=== PATIENT | female | born 1945 | race Caucasian/White ===

== ENCOUNTER 2016-10-10 11:39 | Inpatient (IN) | payer OTHER ==
[~2016-10-10] VITALS: Ht 154.9 cm; Wt 100.9 kg
[~2016-10-10 11:39] MED LIST: ADVIN25050 INH; ALBINS/ INH; ALBUAER2 INH; ALPPOPSD OPB; ASCO10003 PO; CHOL100027 PO; CLOP1TAB15 PO; CRG25 PO; DILT120C68 PO; FRS/40 PO; INSUINJ4 SC; IPRA1AER2 INH; LNX125 PO; LPT/40 PO; MECL1TAB42 PO; XRL15 PO
[2016-10-10] MEDS ORDERED: VNTHFA/IN INH (12:20)
[2016-10-10] MEDS ORDERED: OXGN (12:20)
[2016-10-10] MEDS ORDERED: CEFU1TAB35 PO (12:20)
[2016-10-10] MEDS ORDERED: DILT180C PO (12:20)
[2016-10-10] MEDS ORDERED: ADVIN50/60 INH (12:20)
[2016-10-10] MEDS ORDERED: RIVA1.5T PO (12:20)
[2016-10-10] MEDS ORDERED: LSN5 PO (12:20)
[2016-10-10] MEDS ORDERED: INSDGIPEN SC (12:20)
--- NOTE | 2016-10-10 12:48 | EMERGENCY ROOM VISIT NOTE ---
History Report prepared by Martha: Maurice Galvez Under the Supervision of: Dr. Heike Harrington D.O. First contact with patient: 12:24 Chief Complaint: SHORTNESS OF BREATH Stated Complaint: SHORTNESS OF BREATH History of Present Illness The patient is a 70 year old female with a history of COPD, CHF, atrial fibrillation, and diabetes who presents to the Emergency Room via EMS with complaints of worsening shortness of breath over the past few months. The patient has a BV ICD pacer. The patient says that she has been out of her medications for months and has not been taking a calcium channel shayne, beta- shayne, and Xarelto. She states that she felt good before stopping the medications. Per the nursing report, the patient has still been taking her insulin and nebulizers, and wears a CPAP at night. She received a Duoneb by EMS. The patient adds that she has been having a productive cough, but denies any pain. She saw her primary care physician earlier today for a check-up, and told the doctor that she ran out of the medications. The doctor sent the patient here for evaluation and to check for the possibility of blood clots in the patient's lungs. The patient says she has no history of blood clots. She denies any recent chest pain, abdominal pain, vomiting, diarrhea, or leg swelling. The patient says she has been feeling better with the oxygen she is wearing in the room. She has never smoked. Source of History: patient Onset: Past few months Position: other (global - shortness of breath) Modifying Factors (Relieving): oxygen Associated Symptoms: + cough, No chest pain, No vomiting, No abdominal pain , No diarrhea Note: Associated symptoms: Denies leg swelling. Review of Systems See HPI for pertinent positives & negatives. A total of 10 systems reviewed and were otherwise negative. 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 (16) Shortness of breath Family History Cancer Diabetes mellitus Hypertension Social History Smoking Status: Never Smoker Alcohol Use: none Drug Use: none Marital Status: Occupation Status: disabled Current/Historical Medications Scheduled Ascorbic Acid (Vitamin C), 1,000 MG PO QAM Atorvastatin (Lipitor), 40 MG PO QAM Carvedilol (Carvedilol), 25 MG PO BID Cefuroxime Axetil (Cefuroxime Axetil), 500 MG PO Q12 Cholecalciferol (Vitamin D 1000 Unit), 1,000 INTER.UNIT PO QAM Diltiazem Hcl Coated Beads (Diltiazem Hcl Er), 180 MG PO DAILY Fluticasone Prop/Salmeterol (Advair Diskus 500/50 60 Dose), 1 PUFF INH BID Furosemide (Lasix), 40 MG PO QAM Insulin Glargine (Lantus Solostar), 10 UNITS SC HS Ipratropium-Albuterol (Combivent Respimat), 2 PUFF INH QID Lisinopril (Lisinopril), 5 MG PO DAILY Oxygen (Oxygen), 1.5 LITER NA PRN Rivaroxaban (Xarelto), 15 MG PO DAILY Scheduled PRN Albuterol Hfa (Ventolin Hfa), 2 PUFFS INH Q4H PRN for SOB/Wheezing Albuterol Sulf (Proventil 0.083% 2.5MG/3ML), 1 VIAL INH Q4 PRN for SOB/Wheezing Meclizine Hcl (Meclizine Hcl), 12.5-25 MG PO Q4 PRN for Dizziness or Vertigo Allergies Coded Allergies: Aspirin (Verified Allergy, Intermediate, HIVES, 11/28/15) Iodinated Contrast Media (Verified Allergy, Intermediate, HIVES - MRI DYE , 11/28/15) Levofloxacin (Verified Allergy, Intermediate, HIVES, VEIN IRRITATION W/IV LEVAQUIN, 11/28/15) Erythromycin (Verified Allergy, Unknown, UNKNOWN, 11/28/15) Physical Exam Vital Signs Date Time Temp Pulse Resp B/P (MAP) Pulse Ox O2 Delivery O2 Flow Rate FiO2 10/10/16 16:53 89 16 117/83 98 Nasal Cannula 2.0 10/10/16 16:21 90 10/10/16 15:23 83 16 97/74 99 Nasal Cannula 2.0 10/10/16 15:05 101 22 102/75 98 Nasal Cannula 2.0 10/10/16 14:16 93 22 122/80 100 Nasal Cannula 2.0 10/10/16 13:08 104 22 125/92 97 Nasal Cannula 2.0 10/10/16 12:19 103 10/10/16 11:47 36.8 117 22 105/81 93 Room Air 10/10/16 11:47 93 Room Air 10/10/16 11:47 93 Room Air Physical Exam GENERAL: alert, well appearing, well nourished, no distress, non-toxic EYE EXAM: normal conjunctiva, PERRL and EOM's grossly intact OROPHARYNX: no exudate, no erythema, lips, buccal mucosa, and tongue normal and mucous membranes are dry NECK: supple, no nuchal rigidity, no adenopathy, non-tender LUNGS: Diminished breath sounds, no wheezes, rhonchi, or rales. HEART: no murmurs, S1 normal and S2 normal. Pacemaker left anterior chest wall, paced on telemetry. ABDOMEN: abdomen soft, non-tender, normo-active bowel sounds, no masses, no rebound or guarding. BACK: Back is symmetrical on inspection and there is no deformity, no midline tenderness, no CVA tenderness. SKIN: no rashes and no bruising UPPER EXTREMITIES: upper extremities are grossly normal. LOWER EXTREMITIES: No pitting edema. NEURO EXAM: Normal sensorium, cranial nerves II-XII grossly intact, normal speech, no gross weakness of arms, no gross weakness of legs. No drift. Finger to nose intact. Gross sensation intact. Medical Decision & Procedures ER Provider Diagnostic Interpretation: X-ray results have been interpreted by the radiologist and reviewed by me. CHEST ONE VIEW PORTABLE CLINICAL HISTORY: sob COMPARISON STUDY: January 05, 2016 FINDINGS: The heart is enlarged. There is a left subclavian implantable defibrillator present. There is no failure. There is no focal pulmonary consolidation. There are no pleural effusions. There is stable prominence of the right pulmonary artery.[ There is no failure. IMPRESSION: No active disease in the chest. Electronically signed by: Jass Shaw M.D. 10/10/2016 1:16 PM Dictated Date/Time: 10/10/2016 1:15 PM Laboratory Results Test 10/10/16 11:35 10/10/16 11:55 10/10/16 12:53 Prothrombin Time 11.5 SECONDS (9.0-12.0) Prothromb Time International Ratio 1.1 (0.9-1.1) D-Dimer 1860 ug/L FEU (0-500) Magnesium Level 2.2 mg/dl (1.8-2.4) Total Bilirubin 0.9 mg/dl (0.2-1) Aspartate Amino Transf (AST/SGOT) 21 U/L (15-37) Alanine Aminotransferase (ALT/SGPT) 26 U/L (12-78) Alkaline Phosphatase 106 U/L (45-117) Total Protein 7.0 gm/dl (6.4-8.2) Albumin 4.0 gm/dl (3.4-5.0) Globulin 3.0 gm/dl (2.5-4.0) Albumin/Globulin Ratio 1.3 (0.9-2) Thyroid Stimulating Hormone (TSH) 2.590 uIu/ml (0.300-4.500) Pro-B-Type Natriuretic Peptide 5310 pg/ml (0-900) Urine Color YELLOW Urine Appearance CLEAR (CLEAR) Urine pH 6.0 (4.5-7.5) Urine Specific [place] 1.020 (1.000-1.030) Urine Protein 2+ (NEG) Urine Glucose (UA) NEG (NEG) Urine Ketones NEG (NEG) Urine Occult Blood TRACE (NEG) Urine Nitrite NEG (NEG) Urine Bilirubin NEG (NEG) Urine Urobilinogen NEG (NEG) Urine Leukocyte Esterase SMALL (NEG) Urine WBC (Auto) 10-30 /hpf (0-5) Urine RBC (Auto) 0-4 /hpf (0-4) Urine Hyaline Casts (Auto) 5-10 /lpf (0-5) Urine Epithelial Cells (Auto) >30 /lpf (0-5) Urine Bacteria (Auto) 1+ (NEG) Urine Renal Epithelial Cells /lpf (0-5) Laboratory results per my review. Medications Administered Medications (Trade) Dose Ordered Sig/Ion Route Start Time Stop Time Status Last Admin Dose Admin Heparin Sodium (Porcine) (Heparin Sq 5000 Unit/0.5ml) 5,000 unit STK-MED ONCE .ROUTE 10/10/16 15:00 10/10/16 15:01 DC 10/10/16 15:17 5,000 UNIT Heparin Sodium/ Dextrose (Heparin 25,000 Unit/500ml D5W) 25,000 unit STK-MED ONCE .ROUTE 10/10/16 15:00 10/10/16 15:01 DC 10/10/16 15:18 25,000 UNIT Ceftriaxone Sodium (Rocephin Inj) 1 gm NOW STAT IV 10/10/16 15:54 10/10/16 15:55 DC 10/10/16 16:52 1 GM ECG Indication: SOB/dyspnea Rate (beats per minute): 113 Rhythm: other (AV paced) Findings: no acute ischemic change, other (Normal axis, prolonged QRS and QTC consistent with pacing) ED Course 1239: The patient was evaluated in room C10. A complete history and physical exam was performed. 1422: Ordered Heparin Sodium/Dextrose 1 ea N/A. 1554: Ordered Rocephin Inj 1 gm IV. 1620: Upon reevaluation, the patient is resting comfortably. I discussed the findings and the treatment plan with the patient. She expresses agreement and understanding. She will be evaluated for further management. 1622: I discussed the patient with Dr. Aron Arguelles [facility] [place] - he will evaluate the patient for further treatment. Medical Decision Prior records/ancillary studies reviewed. Triage Nursing notes reviewed. Differential diagnosis: Etiologies such as infections, reactive airway disease, pneumonia, pneumothorax , COPD, CHF, cardiac ischemia, pulmonary embolism, musculoskeletal, gastrointestinal, as well as others were entertained. Medication Reconciliation: I attest that I have personally reviewed the patient' s current medication list. Blood pressure screening: Patient was found to have normal blood pressure on screening and does not require follow-up. Patient well-appearing here despite complaints. Patient felt symptomatically improved with oxygen by nasal cannula which she does not currently wear at home. Patient has been out of her medications recently for unclear reasons, including her blood thinner. For this regions she was sent to the emergency room for additional evaluation of a possible PE by her family doctor. Patient' s troponin found to be elevated also despite no complaints of chest pain and no acute EKG findings. Given consideration for PE, patient started on heparin after troponin found to be elevated. It is possible troponin elevated due to chronic kidney disease. Patient's vital signs stable and I have a much lower suspicion for a massive or submassive PE despite the elevated troponin. Patient with a history of chronic kidney disease and creatinine today close to previously recorded levels. Patient with possible early UTI and covered with IV Rocephin. Patient remained stable throughout and was awaiting VQ scan which could not be scheduled until much later in the day. Given dysrhythmia, elevated troponin, and need to be restarted on usual medications, patient admitted. At time of admission hospitalist was aware that VQ scan was still pending the patient had already been started on heparin given risks and known chronic any disease. Doubt bacteremia/sepsis, patient's blood pressure normal here, doubt hypertensive emergency, doubt AAA, dissection, tamponade, effusion. Consults Time Called: 1620 Consulting Physician: Dr. Aron BYRNE hospitalist Returned Call: 1622 I discussed the patient with Dr. Aron BYRNE hospitalist - he will evaluate the patient for further treatment. Impression Primary Impression: Dyspnea Additional Impressions: Elevated troponin Chronic kidney disease Medical non-compliance Critical Care I have personally spent greater than 35 minutes of critical care time in the direct management of this patient. This includes bedside care, interpretation of diagnostic studies, and testing, discussion with consultants, patient, and family members, and other required patient management activities. This 35 minutes is in excess of all separately billable procedures. Involved system: pulmonary, cardiovascular Scribe Attestation The scribe's documentation has been prepared under my direction and personally reviewed by me in its entirety. I confirm that the note above accurately reflects all work, treatment, procedures, and medical decision making performed by me. Departure Information Dispostion Being Evaluated By Hospitalist Referrals João Stephenson M.D. (PCP) Patient Instructions My [facility] Problem Qualifiers Primary Impression: Dyspnea Dyspnea type: shortness of breath Qualified Codes: R06.02 - Shortness of breath Additional Impressions: Chronic kidney disease Chronic kidney disease stage: unspecified stage Qualified Codes: N18.9 - Chronic kidney disease, unspecified
[2016-10-10 12:57] LABS: BASO % 0.2 %; BASO ABS # 0.02 K/uL (0-0.2); COMPLETE YES; EOS % 1.6 %; HEMATOCRIT 45.8 % (37-47); IG% 0.2 %; LYMPH % 20.9 %; LYMPH ABS # 2.53 K/uL (1.2-3.4); MEAN CELL VOLUME 88.1 fL (80-100); MEAN PLATELET VOLUME 10.2 fL (7.4-10.4); MONO % 6.4 %; NEUT % 70.7 %; PLATELET COUNT 191 K/uL (130-400); WHITE BLOOD COUNT 12.13 K/uL (4.8-10.8)
[2016-10-10 13:09] LABS: BUN/CREATININE RATIO 15.7 (10-20); CREATININE 2.1 mg/dl (0.60-1.20); MAGNESIUM 2.2 mg/dl (1.8-2.4); POTASSIUM 4.8 mmol/L (3.5-5.1)
[2016-10-10 13:10] LABS: URINE APPEARANCE CLEAR (CLEAR); URINE BILIRUBIN NEG (NEG); URINE COLOR YELLOW; URINE EPITHELIAL CELL AUTO >30 /lpf (0-5); URINE NITRITE NEG (NEG); UROBILINOGEN NEG (NEG); ZZUR CULT IF INDIC CLEAN CATCH YES
[2016-10-10 13:11] LABS: INR 1.1 (0.9-1.1); PROTHROMBIN TIME (PATIENT) 11.5 SECONDS (9.0-12.0)
[2016-10-10 13:12] LABS: CALCIUM 9.2 mg/dl (8.5-10.1)
[2016-10-10 13:13] LABS: MANUAL MICROSCOPIC REQUIRED? NO; REVIEW REQ? YES
--- NOTE | 2016-10-10 13:17 | DIAGNOSTIC IMAGING REPORT ---
CHEST ONE VIEW PORTABLE CLINICAL HISTORY: sob COMPARISON STUDY: January 05, 2016 FINDINGS: The heart is enlarged. There is a left subclavian implantable defibrillator present. There is no failure. There is no focal pulmonary consolidation. There are no pleural effusions. There is stable prominence of the right pulmonary artery.[ There is no failure. IMPRESSION: No active disease in the chest. Electronically signed by: Jass Shaw M.D. 10/10/2016 1:16 PM Dictated Date/Time: 10/10/2016 1:15 PM
[2016-10-10 13:29] LABS: ALB/GLOB RATIO 1.3 (0.9-2); THYROID STIMULATING HORMONE 2.59 uIu/ml (0.300-4.500)
[2016-10-10] MEDS ORDERED: HEPARIN 25000 UNIT/500 ML D5W ONE (15:00)
[2016-10-10] MEDS ORDERED: HEPARIN SOD 5000 UNIT/0.5 ML CARP ONE (15:00)
[2016-10-10] MEDS ORDERED: CEFTRIAXONE SOD INJ 1 GM ADDVIAL IV STA (15:54)
--- NOTE | 2016-10-10 17:14 | History and Physical ---
History & Physical Date & Time of Service: Oct 10, 2016 at 16:57 Chief Complaint: Shortness Of Breath Primary Care Physician: João Stephenson M.D. History of Present Illness Source: patient Pt is a 70 yo female with a history of COPD, CHF, CABG, CM, atrial fibrillation , AVR, IDDM who presents to the ER with worsening shortness of breath at rest. Pt reports she has been without her meds since may. She states "my doctor just stopped giving me medications." Pt also reports noncompliance with her CPAP, stating she only uses it 2-3x a week. Per nursing, she has been using her lantus and nebulizers only. Pt was sent here by PCP for evaluation for PE due to worsening sob and being off her xarelto for so long. Currently she denies any fevers, chills, N/V/D, abd pain or chest pain. Reports shortness of breath has slightly improved. 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 Status: Chronic (11) Repair of aortic valve with tissue graft Status: Chronic Family History Cancer Diabetes mellitus Hypertension Social History Smoking Status: Never Smoker Drug Use: none Marital Status: Housing status: lives with family Occupational Status: disabled Immunizations History of Influenza Vaccine: Yes Influenza Vaccine Date: Dec 19, 2011 History of Tetanus Vaccine?: Unknown Tetanus Immunization Date: Jul 15, 2000 History of Pneumococcal: Yes Pneumococcal Date: Jul 15, 2006 History of Hepatitis B Vaccine: No Multi-Drug Resistant Organisms History of MDRO: No Allergies Coded Allergies: Aspirin (Verified Allergy, Intermediate, HIVES, 11/28/15) Diltiazem (Unverified Allergy, Intermediate, rash/hives, 01/05/16) Received immediately aftyer small amount was given as IV push. Iodinated Contrast Media (Verified Allergy, Intermediate, HIVES - MRI DYE , 11/28/15) Levofloxacin (Verified Allergy, Intermediate, HIVES, VEIN IRRITATION W/IV LEVAQUIN, 11/28/15) Erythromycin (Verified Allergy, Unknown, UNKNOWN, 11/28/15) Home Medications Scheduled Ascorbic Acid (Vitamin C), 1,000 MG PO QAM Atorvastatin (Lipitor), 40 MG PO QAM Carvedilol (Carvedilol), 25 MG PO BID Cefuroxime Axetil (Cefuroxime Axetil), 500 MG PO Q12 Cholecalciferol (Vitamin D 1000 Unit), 1,000 INTER.UNIT PO QAM Diltiazem Hcl Coated Beads (Diltiazem Hcl Er), 180 MG PO DAILY Fluticasone Prop/Salmeterol (Advair Diskus 500/50 60 Dose), 1 PUFF INH BID Furosemide (Lasix), 40 MG PO QAM Insulin Glargine (Lantus Solostar), 10 UNITS SC HS Ipratropium-Albuterol (Combivent Respimat), 2 PUFF INH QID Lisinopril (Lisinopril), 5 MG PO DAILY Oxygen (Oxygen), 1.5 LITER NA PRN Rivaroxaban (Xarelto), 15 MG PO DAILY Scheduled PRN Albuterol Hfa (Ventolin Hfa), 2 PUFFS INH Q4H PRN for SOB/Wheezing Albuterol Sulf (Proventil 0.083% 2.5MG/3ML), 1 VIAL INH Q4 PRN for SOB/Wheezing Meclizine Hcl (Meclizine Hcl), 12.5-25 MG PO Q4 PRN for Dizziness or Vertigo Review of Systems Constitutional: No fever, No chills, No sweats, No weight loss, No weakness ENT: No hearing loss, No unusual epistaxis, No nasal symptoms, No sore throat, No tinnitus Respiratory: + cough, + shortness of breath, + dyspnea at rest, No sputum, No wheezing, No dyspnea on exertion Cardiovascular: No chest pain, No orthopnea, No PND, No edema Abdomen: No pain, No nausea, No vomiting, No diarrhea Musculoskeletal: No joint pain, No muscle pain, No swelling, No calf pain Genitourinary - Female: No dysuria, No urinary frequency, No urinary urgency, No urinary incontinence Neurologic: No memory loss, No paralysis, No weakness, No numbness/tingling Psychiatric: No depression symptoms, No anhedonism, No anxiety, No insomnia Integumentary: No rash, No itch Physical Exam Vital Signs Date Time Temp Pulse Resp B/P (MAP) Pulse Ox O2 Delivery O2 Flow Rate FiO2 10/10/16 16:53 89 16 117/83 98 Nasal Cannula 2.0 10/10/16 16:21 90 10/10/16 15:23 83 16 97/74 99 Nasal Cannula 2.0 10/10/16 15:05 101 22 102/75 98 Nasal Cannula 2.0 10/10/16 14:16 93 22 122/80 100 Nasal Cannula 2.0 10/10/16 13:08 104 22 125/92 97 Nasal Cannula 2.0 10/10/16 12:19 103 10/10/16 11:47 36.8 117 22 105/81 93 Room Air 10/10/16 11:47 93 Room Air 10/10/16 11:47 93 Room Air General Appearance: WD/WN, no apparent distress, + obese Eyes: normal inspection, PERRL, EOMI, sclerae normal ENT: normal ENT inspection, hearing grossly normal, TMs normal, pharynx normal Neck: supple, no adenopathy, thyroid normal, no JVD Respiratory/Chest: chest non-tender, no respiratory distress, no accessory muscle use, + decreased breath sounds Cardiovascular: regular rate, rhythm, no gallop, no JVD, no murmur Abdomen/GI: normal bowel sounds, non tender, soft, no organomegaly Extremities/Musculoskelatal: normal inspection, no calf tenderness, normal capillary refill, non-tender Neurologic/Psych: alert, normal mood/affect, normal reflexes, oriented x 3 Diagnostics Laboratory Results Results Past 24 Hours Test 10/10/16 11:35 10/10/16 12:53 Range/Units White Blood Count 12.13 4.8-10.8 K/uL Red Blood Count 5.20 4.2-5.4 M/uL Hemoglobin 15.1 12.0-16.0 g/dL Hematocrit 45.8 37-47 % Mean Corpuscular Volume 88.1 80-100 fL Mean Corpuscular Hemoglobin 29.0 25-34 pg Mean Corpuscular Hemoglobin Concent 33.0 32-36 g/dl Platelet Count 191 130-400 K/uL Mean Platelet Volume 10.2 7.4-10.4 fL Neutrophils (%) (Auto) 70.7 % Lymphocytes (%) (Auto) 20.9 % Monocytes (%) (Auto) 6.4 % Eosinophils (%) (Auto) 1.6 % Basophils (%) (Auto) 0.2 % Neutrophils # (Auto) 8.58 1.4-6.5 K/uL Lymphocytes # (Auto) 2.53 1.2-3.4 K/uL Monocytes # (Auto) 0.78 0.11-0.59 K/uL Eosinophils # (Auto) 0.20 0-0.5 K/uL Basophils # (Auto) 0.02 0-0.2 K/uL RDW Standard Deviation 47.6 36.4-46.3 fL RDW Coefficient of Variation 14.6 11.5-14.5 % Immature Granulocyte % (Auto) 0.2 % Immature Granulocyte # (Auto) 0.02 0.00-0.02 K/uL Prothrombin Time 11.5 9.0-12.0 SECONDS Prothromb Time International Ratio 1.1 0.9-1.1 Activated Partial Thromboplast Time 25.6 21.0-31.0 SECONDS Partial Thromboplastin Ratio 1.0 D-Dimer 1860 0-500 ug/L FEU Sodium Level 141 136-145 mmol/L Potassium Level 4.8 3.5-5.1 mmol/L Chloride Level 107 98-107 mmol/L Carbon Dioxide Level 25 21-32 mmol/L Anion Gap 9.0 3-11 mmol/L Blood Urea Nitrogen 33 7-18 mg/dl Creatinine 2.10 0.60-1.20 mg/dl Est Creatinine Clear Calc Drug Dose 26.3 ml/min Estimated GFR () 26.6 Estimated GFR (Non- 22.9 BUN/Creatinine Ratio 15.7 10-20 Random Glucose 154 70-99 mg/dl Calcium Level 9.2 8.5-10.1 mg/dl Magnesium Level 2.2 1.8-2.4 mg/dl Total Bilirubin 0.9 0.2-1 mg/dl Aspartate Amino Transf (AST/SGOT) 21 15-37 U/L Alanine Aminotransferase (ALT/SGPT) 26 12-78 U/L Alkaline Phosphatase 106 45-117 U/L Troponin I 0.069 0-0.045 ng/ml Total Protein 7.0 6.4-8.2 gm/dl Albumin 4.0 3.4-5.0 gm/dl Globulin 3.0 2.5-4.0 gm/dl Albumin/Globulin Ratio 1.3 0.9-2 Thyroid Stimulating Hormone (TSH) 2.590 0.300-4.500 uIu/ml Urine Color YELLOW Urine Appearance CLEAR CLEAR Urine pH 6.0 4.5-7.5 Urine Specific [place] 1.020 1.000-1.030 Urine Protein 2+ NEG Urine Glucose (UA) NEG NEG Urine Ketones NEG NEG Urine Occult Blood TRACE NEG Urine Nitrite NEG NEG Urine Bilirubin NEG NEG Urine Urobilinogen NEG NEG Urine Leukocyte Esterase SMALL NEG Urine WBC (Auto) 10-30 0-5 /hpf Urine RBC (Auto) 0-4 0-4 /hpf Urine Hyaline Casts (Auto) 5-10 0-5 /lpf Urine Epithelial Cells (Auto) >30 0-5 /lpf Urine Bacteria (Auto) 1+ NEG Urine Renal Epithelial Cells 0-5 /lpf Microbiology Results 10/10/16 Urine Culture, Received Pending Impression Assessment and Plan Pt is a 70 yo female with hx of IDDM, AVR, atrial fibrillation, COPD who presents with worsening shortness of breath at rest. Pt reports not having her meds for past 6 months. Shortness of breath, CXR determined no active disease, due to noncompliance with meds especially xarelto, will need VQ scan. Will utilize heparin drip at this time until results of VQ scan. Currently satting at baseline on home O2. Will utilize CPAP at night and O2 therapy during day If no PE, will need to restart on xarelto prior to DC home Leukocytosis - UA pos, await urine cx, no sx at this time IDDM - Will cont on lantus and ISS, obtain HgA1c Atrial fibrillation - paced rhythm on EKG, cont to trend trops, likely elev from demand ischemia Hx of CABG/nonischemic CM/bi ventricular AICD - stable, cont home meds COPD - Cont advair and xopenex and atrovent to due tachycardia DVT ppx with heparin drip Pt is FULL CODE
[2016-10-10] MEDS ORDERED: ALUMINUM/MAGNESIUM/SIMETH (MAALOX MAX) 30 ML UDC PO PRN (17:30)
[2016-10-10] MEDS ORDERED: OXYGEN SCH (17:30)
[2016-10-10] MEDS ORDERED: DEXTROSE 50% 50 ML SYR IV PRN (17:30)
[2016-10-10] MEDS ORDERED: GLUCOSE 10 TABS/TUBE PO PRN (17:30)
[2016-10-10] MEDS ORDERED: GLUCAGON FOR INJ 1 MG VIAL SQ PRN (17:30)
[2016-10-10] MEDS ORDERED: GLUCOSE 40% GEL 15 GM TUBE PO PRN (17:30)
[2016-10-10] MEDS ORDERED: ACETAMINOPHEN 325 MG TAB PO PRN (17:30)
[2016-10-10] MEDS ORDERED: ONDANSETRON INJ 2 MG/ML 2 ML VIAL IV PRN (17:30)
[2016-10-10 18:10] VITALS: BP 127/86; PULSE 94; TEMP 36.3; O2SAT 98; BMI 41.8
[2016-10-10] MEDS: HEPARIN 25,000 UNIT/500ML D5W 500 ML IV PRN (18:45)
--- NOTE | 2016-10-10 20:24 | DIAGNOSTIC IMAGING REPORT ---
NUCLEAR MEDICINE VENTILATION/PERFUSION SCAN HISTORY: Short of breath, elevated dimer TECHNIQUE: Immediately following the inhalation of 32.4 mCi of technetium 99 M DTPA and the intravenous injection of 6 mCi of technetium 99 M MAA, anterior, oblique, posterior, and lateral views of the chest were performed for the ventilation and perfusion scans. COMPARISON STUDY: Chest 10/10/2016. FINDINGS: No segmental or mismatched filling defects identified. Cardiac silhouette is enlarged. There is blunting the posterior costophrenic sulci. IMPRESSION: Above findings are consistent with a very low probability scan. Electronically signed by: Ajay Monroy M.D. 10/10/2016 8:23 PM Dictated Date/Time: 10/10/2016 8:21 PM
[2016-10-10 20:30] VITALS: BP 126/91; PULSE 85; TEMP 37; O2SAT 97
[2016-10-10] MEDS: LEVALBUTEROL 1.25MG/0.5ML NEB INH SCH (20:32)
[2016-10-10] MEDS: IPRATROPIUM BROMIDE NEB SOLN 0.02% 2.5 ML VIAL INH SCH (20:32)
[2016-10-10 20:33] VITALS: PULSE 95; O2SAT 97
[2016-10-10] MEDS: METHYLPREDNISOLONE IV 60 MG in SYRINGE 0 ML IV SCH (20:49)
[2016-10-10] MEDS: FLUTICASONE/SALMETEROL (ADVAIR) 500/50 INH 14 PUFF INH SCH (20:49)
[2016-10-10] MEDS: CARVEDILOL 25 MG TAB PO SCH (20:50)
[2016-10-10] MEDS: INSULIN ASPART 100 UNITS/ML 3 ML PEN SC SCH (20:53)
[2016-10-10] MEDS ORDERED: INSULIN GLARGINE SOLOSTAR 100 UNITS/ML 3 ML PEN SC SCH (21:00)
[2016-10-10] MEDS ORDERED: LEVALBUTEROL/IPRATROPIUM NEB INH SCH (21:00)
[2016-10-11] VITALS (14 sets, daily range): BP systolic 89–125; BP diastolic 57–84; PULSE 63–109; TEMP 36.4–36.7; O2SAT 92–96; Ht 154.9 cm; Wt 100.9 kg
[2016-10-11 00:23] LABS: PARTIAL THROMBOPLASTIN RATIO 4.6
[2016-10-11] MEDS: HEPARIN 25,000 UNIT/500ML D5W 500 ML IV PRN (01:45)
[2016-10-11] MEDS: IPRATROPIUM BROMIDE NEB SOLN 0.02% 2.5 ML VIAL INH SCH ×4 (01:59→19:13)
[2016-10-11] MEDS: LEVALBUTEROL 1.25MG/0.5ML NEB INH SCH ×4 (01:59→19:13)
[2016-10-11 07:05] LABS: HEMATOCRIT 44.8 % (37-47); MEAN CELL VOLUME 87.5 fL (80-100); MEAN CORPUSCULAR HEMOGLOBIN 28.9 pg (25-34); MEAN PLATELET VOLUME 10.1 fL (7.4-10.4); PLATELET COUNT 173 K/uL (130-400); RED BLOOD COUNT 5.12 M/uL (4.2-5.4); WHITE BLOOD COUNT 9.66 K/uL (4.8-10.8)
[2016-10-11 07:09] LABS: PARTIAL THROMBOPLASTIN RATIO 3.7
[2016-10-11 07:15] LABS: ESTIMATED AVERAGE GLUCOSE 177 mg/dl; HA1C FLAG Normal (Normal)
[2016-10-11] MEDS: METHYLPREDNISOLONE IV 60 MG in SYRINGE 0 ML IV SCH (07:27)
[2016-10-11] MEDS: CARVEDILOL 25 MG TAB PO SCH ×3 (07:28→20:07)
[2016-10-11 07:29] LABS: BUN/CREATININE RATIO 15.3 (10-20); CREATININE 2.5 mg/dl (0.60-1.20); POTASSIUM 4.7 mmol/L (3.5-5.1)
[2016-10-11] MEDS: LISINOPRIL 5 MG TAB PO SCH (07:29)
[2016-10-11] MEDS: CHOLECALCIFEROL 1000 INTER.UNIT TAB PO SCH (07:30)
[2016-10-11] MEDS: FUROSEMIDE 40 MG TAB PO SCH (07:30)
[2016-10-11] MEDS: ATORVASTATIN 40 MG TAB PO SCH (07:31)
[2016-10-11] MEDS: FLUTICASONE/SALMETEROL (ADVAIR) 500/50 INH 14 PUFF INH SCH ×2 (07:32→20:08)
[2016-10-11 07:34] LABS: BASO % 0.1 %; BASO ABS # 0.01 K/uL (0-0.2); COMPLETE YES; IG% 0.2 %; LYMPH % 11.2 %; LYMPH ABS # 1.08 K/uL (1.2-3.4); MONO % 0.7 %; NEUT % 87.8 %
[2016-10-11] MEDS: INSULIN ASPART 100 UNITS/ML 3 ML PEN SC SCH ×4 (07:39→20:59)
[2016-10-11] MEDS: DILTIAZEM HCL 180 MG CAPCR PO SCH (07:40)
--- NOTE | 2016-10-11 09:13 | Hospitalist Progress Note ---
Hospitalist Progress Note Date of Service Oct 11, 2016. (Kenna Dia ., PA-C) Subjective Pt evaluation today including: conversation w/ patient, physical exam, chart review, lab review, review of studies, review of inpatient medication list Voiding: no voiding problems, no incontinence Patient states she is feeling much improved since admission. Yesterday prior to arrival, patient states she was extremely SOB at rest and w/ exertion. Currently , SOB at rest has resolved; patient is able to speak full sentences w/out SOB and on home O2 requirement. Her SOB has been progressively worsening since May when she quit taking her medications. She has been noncompliant with her medications since May. She states she has called her PCP's office multiple times for prescription refills, but the office will not return her calls. She states she has been complaint with her COPD and DM medications. Per patient, sugars have been running around the 160s. Patient follows Dr. Pillai. She states her last follow-up with cardiology was in the Fall 2015. She was to have a 6 month follow-up, but has not followed-up. +chronic cough; no sputum production. Patient denies any fever, chills, sweats, lightheadedness, dizziness, vision changes, CP, palpitations, edema, wheezing, abdominal pain, nausea, vomiting, diarrhea, urinary symptoms, melena, numbness/ tingling, weakness, muscle/joint pain, anxiety/depression, active bleeding, or new skin discoloration/changes. (Kenna Dia ., PA-C) Medications Current Inpatient Medications Medications (Trade) Dose Ordered Sig/Ion Route Start Time Stop Time Status Last Admin Dose Admin Acetaminophen (Tylenol Tab) 650 mg Q4H PRN PO 10/10/16 17:30 11/09/16 17:29 10/11/16 06:48 650 MG Al Hydrox/Mg Hydrox/Simethicone (Maalox Max Susp) 15 ml Q4H PRN PO 10/10/16 17:30 11/09/16 17:29 Ondansetron HCl (Zofran Inj) 4 mg Q6H PRN IV 10/10/16 17:30 11/09/16 17:29 Atorvastatin Calcium (Lipitor Tab) 40 mg QAM PO 10/11/16 09:00 11/10/16 08:59 10/11/16 07:31 40 MG Carvedilol (Coreg Tab) 25 mg BID PO 10/10/16 21:00 11/09/16 20:59 10/10/16 20:50 25 MG Cholecalciferol (Vitamin D Tab) 1,000 inter.unit QAM PO 10/11/16 09:00 11/10/16 08:59 10/11/16 07:30 1,000 INTER.UNIT Diltiazem HCl (Cardizem Cd Cap) 180 mg DAILY PO 10/11/16 09:00 11/10/16 08:59 Salmeterol Xinafoate/ Fluticasone (Advair Diskus 500/50 Inh) 1 puff BID INH 10/10/16 21:00 11/09/16 20:59 10/11/16 07:32 1 PUFF Furosemide (Lasix Tab) 40 mg QAM PO 10/11/16 09:00 11/10/16 08:59 10/11/16 07:30 40 MG Insulin Glargine (Lantus Solostar Pen) 10 unit HS SC 10/10/16 21:00 11/09/16 20:59 10/10/16 20:51 10 UNIT Lisinopril (Zestril Tab) 5 mg DAILY PO 10/11/16 09:00 11/10/16 08:59 10/11/16 07:29 5 MG Non-Formulary Medication (Oxygen ) 1.5 liter PRN NA 10/10/16 17:30 11/09/16 17:29 Insulin Aspart (novoLOG ASPART) SLIDING SCALE If C... ACHS SC 10/10/16 21:00 11/09/16 20:59 10/11/16 07:39 9 UNITS Glucose (Glucose 40% Gel) 15-30 GRAMS 15 GRAMS... UD PRN PO 10/10/16 17:30 11/09/16 17:29 Glucose (Glucose Chew Tab) 4-8 Tablets 4 Tabl... UD PRN PO 10/10/16 17:30 11/09/16 17:29 Dextrose (Dextrose 50% 50ML Syringe) 25-50ML OF 50% DW IV FOR... UD PRN IV 10/10/16 17:30 11/09/16 17:29 Glucagon (Glucagon Inj) 1 mg UD PRN SQ 10/10/16 17:30 11/09/16 17:29 Ipratropium Verbena (Atrovent 0.02% 0.5MG/2.5ML Neb) 0.5 mg Q6R INH 10/10/16 21:00 11/09/16 20:59 10/11/16 07:05 0.5 MG Levalbuterol (Xopenex 1.25MG/ 0.5ML Neb) 1.25 mg Q6R INH 10/10/16 21:00 11/09/16 20:59 10/11/16 07:05 1.25 MG Methylprednisolone Sodium Succinate 60 mg/Syringe 0.96 ml @ 1.5 mls/min Q12@0800,2000 IV 10/10/16 20:00 11/09/16 19:59 10/11/16 07:27 1.5 MLS/MIN Heparin Sodium/ Dextrose 500 ml @ 21 mls/hr [id number] PRN IV 10/10/16 18:45 11/09/16 18:44 10/11/16 01:45 21 MLS/HR (Kenna Dia, PA-C) Objective Vital Signs Date Time Temp Pulse Resp B/P (MAP) Pulse Ox O2 Delivery O2 Flow Rate FiO2 10/11/16 08:04 Nasal Cannula 2.0 10/11/16 07:34 36.7 77 20 89/57 (68) 96 10/11/16 07:05 76 18 94 Nasal Cannula 2.0 10/11/16 04:29 36.4 78 18 103/70 (81) 93 Nasal Cannula 10/11/16 04:00 Nasal Cannula 2.0 10/11/16 01:59 109 18 95 Nasal Cannula 2.0 10/11/16 00:20 94 Nasal Cannula 2.0 10/11/16 00:00 36.4 99 18 123/84 (97) 94 Nasal Cannula 10/10/16 20:33 95 20 97 Nasal Cannula 2.0 10/10/16 20:30 97 Nasal Cannula 2.0 10/10/16 20:30 37.0 85 28 126/91 (103) 97 Nasal Cannula 2.0 10/10/16 18:10 36.3 94 22 127/86 98 Nasal Cannula 2.0 10/10/16 17:44 10/10/16 17:26 101 18 124/105 97 Nasal Cannula 2.0 10/10/16 16:53 89 16 117/83 98 Nasal Cannula 2.0 10/10/16 16:21 90 10/10/16 15:23 83 16 97/74 99 Nasal Cannula 2.0 10/10/16 15:05 101 22 102/75 98 Nasal Cannula 2.0 10/10/16 14:16 93 22 122/80 100 Nasal Cannula 2.0 10/10/16 13:08 104 22 125/92 97 Nasal Cannula 2.0 10/10/16 12:19 103 10/10/16 11:47 36.8 117 22 105/81 93 Room Air 10/10/16 11:47 93 Room Air 10/10/16 11:47 93 Room Air (Kenna Dia, PA-C) Physical Exam General Appearance: no apparent distress, + obese, + pertinent finding (2.0L O2 ; able to speak full sentences w/out SOB) Eyes: normal inspection, PERRL ENT: hearing grossly normal Neck: supple Respiratory/Chest: lungs clear, no respiratory distress, no accessory muscle use, + decreased breath sounds (throughout) Cardiovascular: regular rate, rhythm Abdomen: normal bowel sounds, non tender, soft Extremities: no pedal edema, no calf tenderness Neurologic/Psychiatric: alert, normal mood/affect, oriented x 3 Skin: normal color, warm/dry, no rash (Kenna Dia ., PA-C) Laboratory Results Last 24 Hours Test 10/10/16 11:35 10/10/16 11:55 10/10/16 12:53 10/10/16 18:09 White Blood Count 12.13 K/uL Red Blood Count 5.20 M/uL Hemoglobin 15.1 g/dL Hematocrit 45.8 % Mean Corpuscular Volume 88.1 fL Mean Corpuscular Hemoglobin 29.0 pg Mean Corpuscular Hemoglobin Concent 33.0 g/dl Platelet Count 191 K/uL Mean Platelet Volume 10.2 fL Neutrophils (%) (Auto) 70.7 % Lymphocytes (%) (Auto) 20.9 % Monocytes (%) (Auto) 6.4 % Eosinophils (%) (Auto) 1.6 % Basophils (%) (Auto) 0.2 % Neutrophils # (Auto) 8.58 K/uL Lymphocytes # (Auto) 2.53 K/uL Monocytes # (Auto) 0.78 K/uL Eosinophils # (Auto) 0.20 K/uL Basophils # (Auto) 0.02 K/uL RDW Standard Deviation 47.6 fL RDW Coefficient of Variation 14.6 % Immature Granulocyte % (Auto) 0.2 % Immature Granulocyte # (Auto) 0.02 K/uL Prothrombin Time 11.5 SECONDS Prothromb Time International Ratio 1.1 Activated Partial Thromboplast Time 25.6 SECONDS Partial Thromboplastin Ratio 1.0 D-Dimer 1860 ug/L FEU Sodium Level 141 mmol/L Potassium Level 4.8 mmol/L Chloride Level 107 mmol/L Carbon Dioxide Level 25 mmol/L Anion Gap 9.0 mmol/L Blood Urea Nitrogen 33 mg/dl Creatinine 2.10 mg/dl Est Creatinine Clear Calc Drug Dose 26.3 ml/min Estimated GFR () 26.6 Estimated GFR (Non- 22.9 BUN/Creatinine Ratio 15.7 Random Glucose 154 mg/dl Calcium Level 9.2 mg/dl Magnesium Level 2.2 mg/dl Total Bilirubin 0.9 mg/dl Aspartate Amino Transf (AST/SGOT) 21 U/L Alanine Aminotransferase (ALT/SGPT) 26 U/L Alkaline Phosphatase 106 U/L Troponin I 0.069 ng/ml Total Protein 7.0 gm/dl Albumin 4.0 gm/dl Globulin 3.0 gm/dl Albumin/Globulin Ratio 1.3 Thyroid Stimulating Hormone (TSH) 2.590 uIu/ml Pro-B-Type Natriuretic Peptide 5310 pg/ml Urine Color YELLOW Urine Appearance CLEAR Urine pH 6.0 Urine Specific [place] 1.020 Urine Protein 2+ Urine Glucose (UA) NEG Urine Ketones NEG Urine Occult Blood TRACE Urine Nitrite NEG Urine Bilirubin NEG Urine Urobilinogen NEG Urine Leukocyte Esterase SMALL Urine WBC (Auto) 10-30 /hpf Urine RBC (Auto) 0-4 /hpf Urine Hyaline Casts (Auto) 5-10 /lpf Urine Epithelial Cells (Auto) >30 /lpf Urine Bacteria (Auto) 1+ Urine Renal Epithelial Cells /lpf Bedside Glucose 111 mg/dl Test 10/10/16 20:44 10/10/16 23:36 10/11/16 06:30 Bedside Glucose 153 mg/dl Activated Partial Thromboplast Time 120.2 SECONDS 97.2 SECONDS Partial Thromboplastin Ratio 4.6 3.7 Troponin I 0.071 ng/ml 0.046 ng/ml White Blood Count 9.66 K/uL Red Blood Count 5.12 M/uL Hemoglobin 14.8 g/dL Hematocrit 44.8 % Mean Corpuscular Volume 87.5 fL Mean Corpuscular Hemoglobin 28.9 pg Mean Corpuscular Hemoglobin Concent 33.0 g/dl Platelet Count 173 K/uL Mean Platelet Volume 10.1 fL Neutrophils (%) (Auto) 87.8 % Lymphocytes (%) (Auto) 11.2 % Monocytes (%) (Auto) 0.7 % Eosinophils (%) (Auto) 0.0 % Basophils (%) (Auto) 0.1 % Neutrophils # (Auto) 8.48 K/uL Lymphocytes # (Auto) 1.08 K/uL Monocytes # (Auto) 0.07 K/uL Eosinophils # (Auto) 0.00 K/uL Basophils # (Auto) 0.01 K/uL RDW Standard Deviation 46.1 fL RDW Coefficient of Variation 14.3 % Immature Granulocyte % (Auto) 0.2 % Immature Granulocyte # (Auto) 0.02 K/uL Sodium Level 138 mmol/L Potassium Level 4.7 mmol/L Chloride Level 106 mmol/L Carbon Dioxide Level 21 mmol/L Anion Gap 11.0 mmol/L Blood Urea Nitrogen 38 mg/dl Creatinine 2.50 mg/dl Est Creatinine Clear Calc Drug Dose 22.1 ml/min Estimated GFR () 21.5 Estimated GFR (Non- 18.6 BUN/Creatinine Ratio 15.3 Random Glucose 280 mg/dl Estimated Average Glucose 177 mg/dl Hemoglobin A1c 7.8 % Calcium Level 9.0 mg/dl (Kenna Dia, PA-C) Assessment and Plan Patient is a 70 y/o female, with hx of IDDM, AVR, atrial fibrillation, COPD, who presents with worsening shortness of breath at rest. Pt reports not having her meds for past 6 months. SOB at rest & w/ exertion, ?secondary to PE vs COPD exacerbation vs CHF vs multifactorial due noncompliance of medications : - Admit to tele for cardiac monitoring - Trend cardiac enzymes- peak trop 0.071, likely secondary to demand ischemia - CXR- no acute processes - ECHO pending - IV Heparin drip pending VQ scan for possible PE due to noncompliance of Xarelto and h/o a.fib -- VQ scan- low probability of PE; d/c Heparin, resume Xarelto 15 mg daily - O2 protocol, wean as tolerated- wears 1.5-2L O2 supplement at home Leukocytosis- RESOLVED: - UA dirty, pending UCx; no s/s of UTI at this time, hold on antibiotics pending UCx T1DM w/ hyperglycemia: - Home regimen: Lantus 10 u HS -- Will increase to Lantus 10 u BID due to elevated hA1C and IV Steroid treatment- continue to titrate as needed - BSG ACHS w/ sliding insulin scale - hA1C= 7.8% Permanent a.fib- rate controlled/hx of CABG/nonischemic CM/bi-ventricular AICD- STABLE: - Continue Coreg 25 mg BID, Lisinopril 5 mg daily, Lasix 40 mg daily, Diltiazem 180 mg daily - Follows w/ Dr. Pillai- has not had f/u since Fall 2015 and missed scheduled 6 month f/u COPD w/ ?mild exacerbation: - Continue Advair, Xopenex, and Atrovent - IV SoluMedrol 60 mg BID--> decreased to daily and continue to wean CKD stage IV- baseline Cr. ~2.0-2.4- STABLE: Follow PRP Dyslipidemia: Lipitor 40 mg daily DIAMOND: - CPAP; patient is noncompliant- states she does not use it regularly and was suppose to have her machine checked months ago, but the home services never came GI Prophylaxis: Maalox PRN, IV Zofran PRN DVT Prophylaxis: Xarelto Code Status: LEVEL I, FULL Dispo: - Patient lives w/ grandson and family- ambulates w/ walker- recent decrease in activity due to SOB; pending PT/OT evaluations - Poor outpatient f/u's- will need f/u with PCP (prefers Aimee) and cardiology prior to discharge; will need CPAP check- social problems specialist consulted (Kenna Dia, PABlaneC) i personally examined pt and verified all briscoe points w Jordin Dia PAC feeling better now vitals noted nad breathing unlabored no cyanosis no accessory muscles chronic systolic chf - unclear exactly as to how she ran out of meds/refills/ lost to follow up. much of the situation has me harbor concern on her having an occult lack of ability for follow through in some respect. appears basically to be at/around what seems to be baseline - now back on meds and feeling better. observe through tomorrow if ongoing stability then home. to ensure not "slipping through the cracks" again - home nursing, close f/u to be scheduled. (Alfonzo Webber D.O.)
[2016-10-11] MEDS ORDERED: PERFLUTREN LIPID MICROSPHERE (DEFINITY) IV ONE (09:47)
[2016-10-11] MEDS: RIVAROXABAN TAB 15 MG TAB PO SCH (10:44)
[2016-10-11] MEDS: INSULIN GLARGINE SOLOSTAR 100 UNITS/ML 3 ML PEN SC SCH ×2 (10:47→21:00)
--- NOTE | 2016-10-11 13:16 | ECHOCARDIOGRAM REPORT ---
*NOTICE TO RECEIVING [employer] This information is strictly Confidential and protected under [place] law. [place] law prohibits you from making any further disclosure of this information unless further disclosure is expressly permitted by the written consent of the person to whom it pertains or is authorized by law. A general authorization for the release of medical or other information is not sufficient for this purpose. Hospital accepts no responsibility if the information is made available to any other person, INCLUDING THE PATIENT. Interpretation Summary * Name: NINOSKA LANGFORD Study Date: 10/11/2016 08:47 AM BP: 89/57 mmHg * Patient Location: C.2T\S\S239\S\1 HR: 77 * : 1945 (M/d/yyyy) Gender: Female Height: 60 in * Age: 70 yrs Ethnicity: [place] Weight: 221 lb * Ordering Physician: Alfonzo Webber * Referring Physician: Aimee Crook * Performed By: Emily Hinton RDCS * * Reason For Study: MEDRANO * BSA: 1.9 m2 * -- Conclusions -- * Left ventricular systolic function is severely reduced. * There is severe global hypokinesis of the left ventricle. * There is apical akinesis. * Ejection Fraction = 25-30%. * There is moderate concentric left ventricular hypertrophy. * Diastolic dysfunction, Grade II (pseudonormalization pattern). * The prosthetic aortic valve is well-seated. * The gradient is normal for this prosthetic aortic valve. Procedure Details * A contrast injection of Definity was performed to improve assessment of LV function. * Contrast was injected into an intravenous site in the right arm. * One vial of Definity ultrasound contrast was diluted in normal saline to a total volume of 10 ml. A total of '2' ml of solution was administered during imaging. * Lot # [id number] of Definity utilized for procedure. * Expiration date 1 NOV 26. * The attending nurse who injected the contrast agent was SUMEET CUTLER RN. Left Ventricle * The left ventricle is mildly dilated. * There is moderate concentric left ventricular hypertrophy. * Ejection Fraction = 25-30%. * Left ventricular systolic function is severely reduced. * There is apical akinesis. * There is severe global hypokinesis of the left ventricle. Right Ventricle * The right ventricle is not well visualized. * The right ventricular systolic function is normal as assessed by tricuspid annular plane systolic excursion (TAPSE) (normal >1.5 cm). Atria * The left atrium is mildly dilated. * The right atrium is mildly dilated. * There is no evidence of atrial septal defect, but resolution does not allow assessment for a patent foramen ovale. Mitral Valve * The mitral valve is grossly normal. * There is no mitral valve stenosis. * Significant mitral regurgitation is absent. Tricuspid Valve * The tricuspid valve is not well visualized, but is grossly normal. * Significant tricuspid regurgitation is absent. Aortic Valve * There is no significant aortic regurgitation. * The prosthetic aortic valve is well-seated. * The gradient is normal for this prosthetic aortic valve. Pulmonic Valve * The pulmonary valve is not well seen, but the Doppler examination is normal without significant regurgitation or stenosis. Great Vessels * The aortic root is normal size. Pericardium/Pleural * There is no pericardial effusion. Left Ventricular Diastolic Function * Diastolic dysfunction, Grade II (pseudonormalization pattern). MMode 2D Measurements and Calculations IVSd 1.3 cm IVSs 1.8 cm LVIDd 5.5 cm LVIDs 4.8 cm LVPWd 1.1 cm LVPWs 1.4 cm IVS/LVPW 1.2 FS 13.7 % EDV(Teich) 149.1 ml ESV(Teich) 106.1 ml EF(Teich) 28.9 % EDV(cubed) 168.9 ml ESV(cubed) 108.7 ml EF(cubed) 35.7 % % IVS thick 35.1 % % LVPW thick 23.4 % LV mass(C)d 275.2 grams LV mass(C)dI 141.3 grams/m\S\2 LV mass(C)s 319.1 grams LV mass(C)sI 163.8 grams/m\S\2 SV(Teich) 43.1 ml SI(Teich) 22.1 ml/m\S\2 SV(cubed) 60.2 ml SI(cubed) 30.9 ml/m\S\2 ACS 1.3 cm asc Aorta Diam 2.2 cm LVAd ap4 40.0 cm\S\2 LVLd ap4 9.2 cm EDV(MOD-sp4) 142.0 ml EDV(sp4-el) 108.6 ml LVAs ap4 27.5 cm\S\2 LVLs ap4 8.0 cm ESV(MOD-sp4) 92.0 ml ESV(sp4-el) 97.3 ml EF(MOD-sp4) 35.2 % EF(sp4-el) 10.4 % LVAd ap2 41.3 cm\S\2 LVLd ap2 9.6 cm EDV(MOD-sp2) 145.0 ml EDV(sp2-el) 174.3 ml LVAs ap2 30.3 cm\S\2 LVLs ap2 9.1 cm ESV(MOD-sp2) 101.1 ml ESV(sp2-el) 102.9 ml EF(MOD-sp2) 30.3 % EF(sp2-el) 41.0 % LVLs %diff 7.8 % ESV(MOD-bp) 97.8 ml SV(MOD-sp4) 50.0 ml SI(MOD-sp4) 25.7 ml/m\S\2 SV(MOD-sp2) 43.9 ml SI(MOD-sp2) 22.5 ml/m\S\2 SV(sp4-el) 11.3 ml SI(sp4-el) 5.8 ml/m\S\2 SV(sp2-el) 71.4 ml SI(sp2-el) 36.7 ml/m\S\2 Doppler Measurements and Calculations MV E max sheri 131.9 cm/sec MV A max sheri 38.8 cm/sec MV E/A 3.4 MV P1/2t max sheri 153.8 cm/sec MV P1/2t 55.3 msec MVA(P1/2t) 4.0 cm\S\2 MV dec slope 814.6 cm/sec\S\2 MV dec time 0.18 sec Ao V2 max 179.2 cm/sec Ao max PG 12.8 mmHg Ao max PG (full) 11.1 mmHg LV V1 max PG 1.8 mmHg LV V1 max 66.2 cm/sec PA V2 max 53.8 cm/sec PA max PG 1.2 mmHg PI max sheri 225.9 cm/sec PI max PG 20.4 mmHg PI dec slope 284.4 cm/sec\S\2 PI P1/2t 232.6 msec
[2016-10-12 02:00] VITALS: PULSE 68; O2SAT 96
[2016-10-12] MEDS: LEVALBUTEROL 1.25MG/0.5ML NEB INH SCH ×2 (02:00→07:10)
[2016-10-12] MEDS: IPRATROPIUM BROMIDE NEB SOLN 0.02% 2.5 ML VIAL INH SCH ×2 (02:00→07:10)
[2016-10-12 04:48] VITALS: BP 108/70; PULSE 76; TEMP 36.5; O2SAT 92
[2016-10-12 07:09] VITALS: PULSE 75; O2SAT 97
[2016-10-12 07:24] LABS: BASO ABS # 0.01 K/uL (0-0.2); COMPLETE YES; HEMATOCRIT 41.5 % (37-47); IG% 0.3 %; LYMPH % 4.8 %; MEAN CELL VOLUME 88.1 fL (80-100); MEAN CORPUSCULAR HEMOGLOBIN 29.1 pg (25-34); MONO % 2.6 %; NEUT % 92.3 %; PLATELET COUNT 145 K/uL (130-400); RED BLOOD COUNT 4.71 M/uL (4.2-5.4); WHITE BLOOD COUNT 20.65 K/uL (4.8-10.8)
[2016-10-12 07:28] LABS: PARTIAL THROMBOPLASTIN RATIO 0.9
[2016-10-12 07:51] LABS: CALCIUM 9.1 mg/dl (8.5-10.1); CREATININE 2.3 mg/dl (0.60-1.20); POTASSIUM 4.6 mmol/L (3.5-5.1)
[2016-10-12 08:00] VITALS: BP 129/85; PULSE 94; TEMP 36.4; O2SAT 93
[2016-10-12] MEDS: INSULIN ASPART 100 UNITS/ML 3 ML PEN SC SCH (08:13)
[2016-10-12] MEDS: FLUTICASONE/SALMETEROL (ADVAIR) 500/50 INH 14 PUFF INH SCH (08:14)
[2016-10-12] MEDS: CARVEDILOL 25 MG TAB PO SCH (08:14)
[2016-10-12] MEDS: CHOLECALCIFEROL 1000 INTER.UNIT TAB PO SCH (08:14)
[2016-10-12] MEDS: LISINOPRIL 5 MG TAB PO SCH (08:15)
[2016-10-12] MEDS: ATORVASTATIN 40 MG TAB PO SCH (08:15)
[2016-10-12] MEDS: DILTIAZEM HCL 180 MG CAPCR PO SCH (08:15)
[2016-10-12] MEDS: FUROSEMIDE 40 MG TAB PO SCH (08:15)
[2016-10-12] MEDS: RIVAROXABAN TAB 15 MG TAB PO SCH (08:16)
[2016-10-12] MEDS: INSULIN GLARGINE SOLOSTAR 100 UNITS/ML 3 ML PEN SC SCH (08:17)
[2016-10-12] MEDS ORDERED: VNTHFA/IN INH (08:37)
[2016-10-12] MEDS ORDERED: DILT180C PO (08:37)
[2016-10-12] MEDS ORDERED: FRS/40 PO (08:37)
[2016-10-12] MEDS ORDERED: LPT/40 PO (08:37)
[2016-10-12] MEDS ORDERED: CRG25 PO (08:37)
[2016-10-12] MEDS ORDERED: ADVIN50/60 INH (08:37)
[2016-10-12] MEDS ORDERED: ALBINS/ INH (08:37)
[2016-10-12] MEDS ORDERED: IPRA1AER2 INH (08:37)
[2016-10-12] MEDS ORDERED: RIVA1.5T PO (08:37)
[2016-10-12] MEDS ORDERED: LSN5 PO (08:38)
[2016-10-12] MEDS ORDERED: INSDGIPEN SC (08:38)
--- NOTE | 2016-10-12 08:47 | Discharge Instructions ---
Discharge Instructions Date of Service Oct 12, 2016. Admission Reason for Admission: Shortness Of Breath Discharge Discharge Diagnosis / Problem: Medical non-compliance Discharge Goals Goal(s): Decrease discomfort, Improve function, Learn about illness, Therapeutic intervention, Prevent Disease Progression Activity Recommendations Activity Limitations: resume your previous activity . Instructions / Follow-Up Instructions / Follow-Up New/changed medications: 1. Due to your elevated hA1C, your Lantus has been INCREASED to 9 units twice per day You have been given a new glucose monitor in the hospital. The strips have been sent to your pharmacy. Please log your blood sugars 1-3 times per day. Take this log to your PCP follow-up to further evaluate your glucose control. Resume all other medications as prescribed [place] [facility] [place] Please pick these medications up directly after discharge from hospital. IT IS VERY IMPORTANT YOU TAKE YOUR MEDICATIONS PRESCRIBED to prevent future hospitalizations. Home health services will be setup to help you stay medically on track IT IS VERY IMPORTANT YOU MAINTAIN CLOSE FOLLOW-UP WITH YOUR PCP AND ALL OTHER SUBSPECIALITIES: Please follow-up with your PCP within 5-7 days Please follow-up/keep all of your subspecialty appointments Current Hospital Diet Patient's current hospital diet: AHA Diet (Heart Healthy), Diabetes Type 1 Diet Discharge Diet Recommended Diet: AHA Diet (Heart Healthy), Diabetes Type 1 Diet Pending Studies Studies pending at discharge: no Laboratory Results Last 24 Hours Test 10/11/16 11:09 10/11/16 14:11 10/11/16 16:08 10/11/16 20:50 Bedside Glucose 271 mg/dl 314 mg/dl 229 mg/dl Troponin I 0.044 ng/ml Test 10/12/16 06:35 10/12/16 06:45 White Blood Count 20.65 K/uL Red Blood Count 4.71 M/uL Hemoglobin 13.7 g/dL Hematocrit 41.5 % Mean Corpuscular Volume 88.1 fL Mean Corpuscular Hemoglobin 29.1 pg Mean Corpuscular Hemoglobin Concent 33.0 g/dl Platelet Count 145 K/uL Mean Platelet Volume 10.0 fL Neutrophils (%) (Auto) 92.3 % Lymphocytes (%) (Auto) 4.8 % Monocytes (%) (Auto) 2.6 % Eosinophils (%) (Auto) 0.0 % Basophils (%) (Auto) 0.0 % Neutrophils # (Auto) 19.04 K/uL Lymphocytes # (Auto) 1.00 K/uL Monocytes # (Auto) 0.54 K/uL Eosinophils # (Auto) 0.00 K/uL Basophils # (Auto) 0.01 K/uL RDW Standard Deviation 46.4 fL RDW Coefficient of Variation 14.3 % Immature Granulocyte % (Auto) 0.3 % Immature Granulocyte # (Auto) 0.06 K/uL Activated Partial Thromboplast Time 22.2 SECONDS Partial Thromboplastin Ratio 0.9 Sodium Level 135 mmol/L Potassium Level 4.6 mmol/L Chloride Level 103 mmol/L Carbon Dioxide Level 22 mmol/L Anion Gap 10.0 mmol/L Blood Urea Nitrogen 46 mg/dl Creatinine 2.30 mg/dl Est Creatinine Clear Calc Drug Dose 24.1 ml/min Estimated GFR () 23.8 Estimated GFR (Non- 20.5 BUN/Creatinine Ratio 20.0 Random Glucose 231 mg/dl Calcium Level 9.1 mg/dl Bedside Glucose 223 mg/dl Hemoglobin A1c Test 10/11/16 06:30 Range/Units Estimated Average Glucose 177 mg/dl Hemoglobin A1c 7.8 H 4.5-5.6 % Medical Emergencies . Who to Call and When: Medical Emergencies: If at any time you feel your situation is an emergency, please call 911 immediately. . Non-Emergent Contact Non-Emergency issues call your: Primary Care Provider . . "Provider Documentation" section prepared by Kenna Dia. . VTE Core Measure Inpt VTE Proph given/why not?: Other Anticoagulation, T.E.D. Stockings, SCD's
[2016-10-12] MEDS ORDERED: METHYLPREDNISOLONE IV 60 MG in SYRINGE 0 ML IV SCH (09:00)
--- NOTE | 2016-10-12 09:00 | Discharge Summary ---
Discharge Summary Date of Service Oct 12, 2016. (Kenna Dia, JAMES) Discharge Summary Admission Date: Oct 10, 2016 at 17:17 Discharge Date: Oct 12, 2016 Discharge Disposition: Home with services Principal Diagnosis: Medical non-compliance Problems/Secondary Diagnoses: SOB at rest & w/ exertion, ?secondary to PE vs COPD exacerbation vs CHF vs multifactorial due noncompliance of medications Leukocytosis T1DM w/ hyperglycemia Permanent a.fib- rate controlled/hx of CABG/nonischemic CM/bi-ventricular AICD COPD CKD stage IV Dyslipidemia DIAMOND Immunizations: Have You Had Influenza Vaccine: Yes Influenza Vaccine Date: Dec 19, 2011 History of Tetanus Vaccine?: Unknown Tetanus Immunization Date: Jul 15, 2000 History of Pneumococcal: Yes Pneumococcal Date: Jul 15, 2006 History of Hepatitis B Vaccine: No Procedures: ECHOCARDIOGRAM Interpretation Summary * Name: NINOSKA LANGFORD Study Date: 10/11/2016 08:47 AM BP: 89/57 mmHg * Patient Location: [facility]\\S\\39\\S\\1 HR: 77 * : 1945 (M/d/yyyy) Gender: Female Height: 60 in * Age: 70 yrs Ethnicity: CA Weight: 221 lb * Ordering Physician: Alfonzo Webber * Referring Physician: Aimee Crook * Performed By: Emily Hinton RDCS * * Reason For Study: MEDRANO * BSA: 1.9 m2 * -- Conclusions -- * Left ventricular systolic function is severely reduced. * There is severe global hypokinesis of the left ventricle. * There is apical akinesis. * Ejection Fraction = 25-30%. * There is moderate concentric left ventricular hypertrophy. * Diastolic dysfunction, Grade II (pseudonormalization pattern). * The prosthetic aortic valve is well-seated. * The gradient is normal for this prosthetic aortic valve. Procedure Details * A contrast injection of Definity was performed to improve assessment of LV function. * Contrast was injected into an intravenous site in the right arm. * One vial of Definity ultrasound contrast was diluted in normal saline to a total volume of 10 ml. A total of '2' ml of solution was administered during imaging. * Lot # [id number] of Definity utilized for procedure. * Expiration date NOV 26. * The attending nurse who injected the contrast agent was SUMEET CUTLER RN. Left Ventricle * The left ventricle is mildly dilated. * There is moderate concentric left ventricular hypertrophy. * Ejection Fraction = 25-30%. * Left ventricular systolic function is severely reduced. * There is apical akinesis. * There is severe global hypokinesis of the left ventricle. Right Ventricle * The right ventricle is not well visualized. * The right ventricular systolic function is normal as assessed by tricuspid annular plane systolic excursion (TAPSE) (normal >1.5 cm). Atria * The left atrium is mildly dilated. * The right atrium is mildly dilated. * There is no evidence of atrial septal defect, but resolution does not allow assessment for a patent foramen ovale. Mitral Valve * The mitral valve is grossly normal. * There is no mitral valve stenosis. * Significant mitral regurgitation is absent. Tricuspid Valve * The tricuspid valve is not well visualized, but is grossly normal. * Significant tricuspid regurgitation is absent. Aortic Valve * There is no significant aortic regurgitation. * The prosthetic aortic valve is well-seated. * The gradient is normal for this prosthetic aortic valve. Pulmonic Valve * The pulmonary valve is not well seen, but the Doppler examination is normal without significant regurgitation or stenosis. Great Vessels * The aortic root is normal size. Pericardium/Pleural * There is no pericardial effusion. Left Ventricular Diastolic Function * Diastolic dysfunction, Grade II (pseudonormalization pattern). MMode 2D Measurements and Calculations IVSd 1.3 cm IVSs 1.8 cm LVIDd 5.5 cm LVIDs 4.8 cm LVPWd 1.1 cm LVPWs 1.4 cm IVS/LVPW 1.2 FS 13.7 % EDV(Teich) 149.1 ml ESV(Teich) 106.1 ml EF(Teich) 28.9 % EDV(cubed) 168.9 ml ESV(cubed) 108.7 ml EF(cubed) 35.7 % % IVS thick 35.1 % % LVPW thick 23.4 % LV mass(C)d 275.2 grams LV mass(C)dI 141.3 grams/m\\S\\2 LV mass(C)s 319.1 grams LV mass(C)sI 163.8 grams/m\\S\\2 SV(Teich) 43.1 ml SI(Teich) 22.1 ml/m\\S\\2 SV(cubed) 60.2 ml SI(cubed) 30.9 ml/m\\S\\2 ACS 1.3 cm asc Aorta Diam 2.2 cm LVAd ap4 40.0 cm\\S\\2 LVLd ap4 9.2 cm EDV(MOD-sp4) 142.0 ml EDV(sp4-el) 108.6 ml LVAs ap4 27.5 cm\\S\\2 LVLs ap4 8.0 cm ESV(MOD-sp4) 92.0 ml ESV(sp4-el) 97.3 ml EF(MOD-sp4) 35.2 % EF(sp4-el) 10.4 % LVAd ap2 41.3 cm\\S\\2 LVLd ap2 9.6 cm EDV(MOD-sp2) 145.0 ml EDV(sp2-el) 174.3 ml LVAs ap2 30.3 cm\\S\\2 LVLs ap2 9.1 cm ESV(MOD-sp2) 101.1 ml ESV(sp2-el) 102.9 ml EF(MOD-sp2) 30.3 % EF(sp2-el) 41.0 % LVLs %diff 7.8 % ESV(MOD-bp) 97.8 ml SV(MOD-sp4) 50.0 ml SI(MOD-sp4) 25.7 ml/m\\S\\2 SV(MOD-sp2) 43.9 ml SI(MOD-sp2) 22.5 ml/m\\S\\2 SV(sp4-el) 11.3 ml SI(sp4-el) 5.8 ml/m\\S\\2 SV(sp2-el) 71.4 ml SI(sp2-el) 36.7 ml/m\\S\\2 Doppler Measurements and Calculations MV E max sheri 131.9 cm/sec MV A max sheri 38.8 cm/sec MV E/A 3.4 MV P1/2t max sheri 153.8 cm/sec MV P1/2t 55.3 msec MVA(P1/2t) 4.0 cm\\S\\2 MV dec slope 814.6 cm/sec\\S\\2 MV dec time 0.18 sec Ao V2 max 179.2 cm/sec Ao max PG 12.8 mmHg Ao max PG (full) 11.1 mmHg LV V1 max PG 1.8 mmHg LV V1 max 66.2 cm/sec PA V2 max 53.8 cm/sec PA max PG 1.2 mmHg PI max sheri 225.9 cm/sec PI max PG 20.4 mmHg PI dec slope 284.4 cm/sec\\S\\2 PI P1/2t 232.6 msec Created: Initialized: 10/11/16; 1316 <Electronically signed by Antonio Carbajal M.D.> Signed: 10/11/16 1621 Antonio Carbajal M.D. The status of this report is Signed. Draft = Not yet reviewed or approved by Garbage Collector. Signed = Reviewed and approved by Garbage Collector. CHEST ONE VIEW PORTABLE CLINICAL HISTORY: sob COMPARISON STUDY: January 05, 2016 FINDINGS: The heart is enlarged. There is a left subclavian implantable defibrillator present. There is no failure. There is no focal pulmonary consolidation. There are no pleural effusions. There is stable prominence of the right pulmonary artery.[ There is no failure. IMPRESSION: No active disease in the chest. Electronically signed by: Jass Shaw M.D. 10/10/2016 1:16 PM Dictated Date/Time: 10/10/2016 1:15 PM The status of this report is Signed. Draft = Not yet reviewed or approved by Radiologist. Signed = Reviewed and approved by Radiologist. NUCLEAR MEDICINE VENTILATION/PERFUSION SCAN HISTORY: Short of breath, elevated dimer TECHNIQUE: Immediately following the inhalation of 32.4 mCi of technetium 99 M DTPA and the intravenous injection of 6 mCi of technetium 99 M MAA, anterior, oblique, posterior, and lateral views of the chest were performed for the ventilation and perfusion scans. COMPARISON STUDY: Chest 10/10/2016. FINDINGS: No segmental or mismatched filling defects identified. Cardiac silhouette is enlarged. There is blunting the posterior costophrenic sulci. IMPRESSION: Above findings are consistent with a very low probability scan. Electronically signed by: Ajay Monroy M.D. 10/10/2016 8:23 PM Dictated Date/Time: 10/10/2016 8:21 PM The status of this report is Signed. Draft = Not yet reviewed or approved by Radiologist. Signed = Reviewed and approved by Radiologist. (Kenna Dia, AISHAC) Medication Reconciliation New Medications: Insulin Glargine (Lantus Solostar) 100 Unit/Ml Inj 9 UNIT SC BID for 30 Days, #60 DOSE Continued Medications: Albuterol Hfa (Ventolin Hfa) 200 Puffs/86989 Mcg Aers 2 PUFFS INH Q4H PRN for SOB/Wheezing, #1 INHALER (This prescription has been renewed) Albuterol Sulf (Proventil 0.083% 2.5MG/3ML) 2.5 Mg/3 Ml Nebu 1 VIAL INH Q4 PRN for SOB/Wheezing, #15 DOSE (This prescription has been renewed ) Ascorbic Acid (Vitamin C) 1,000 Mg Tab 1000 MG PO QAM Atorvastatin (Lipitor) 40 Mg Tab 40 MG PO QAM for 30 Days, #30 TAB (This prescription has been renewed) Carvedilol (Carvedilol) 25 Mg Tab 25 MG PO BID for 30 Days, #60 TABS (This prescription has been renewed) Cholecalciferol (Vitamin D 1000 Unit) 1,000 Unit Cap 1000 INTER.UNIT PO QAM, CAP Diltiazem Hcl Coated Beads (Diltiazem Hcl Er) 180 Mg Cap 180 MG PO DAILY for 30 Days, #30 CAP 0 Refills (This prescription has been renewed) Fluticasone Prop/Salmeterol (Advair Diskus 500/50 60 Dose) 1 Ea Aerp 1 PUFF INH BID for 30 Days, #1 INHALER (This prescription has been renewed) Furosemide (Lasix) 40 Mg Tab 40 MG PO QAM for 30 Days, #30 TAB (This prescription has been renewed) TAKE 1 TABLET EVERY DAY; MAY INCREASE TO 2 TABLETS IF WEIGHT GAIN OF 3-5 POUNDS UNTIL WEIGHT RETURNS TO BASELINE Ipratropium-Albuterol (Combivent Respimat) 1 Aer Aer 2 PUFF INH QID, #1 INHALER (This prescription has been renewed) MAX OF 6 INHALATIONS PER 24 HOURS Lisinopril (Lisinopril) 5 Mg Tab 5 MG PO DAILY, #30 TABS (This prescription has been renewed) Meclizine Hcl (Meclizine Hcl) 25 Mg Tab 12.5-25 MG PO Q4 PRN for Dizziness or Vertigo Oxygen (Oxygen) Gas 1.5 LITER NA PRN 1.5 L PER MINUTE VIA NASAL CANNULA NEEDED Rivaroxaban (Xarelto) 15 Mg Tab 15 MG PO DAILY for 30 Days, #30 TAB (This prescription has been renewed) Discontinued Medications: Cefuroxime Axetil (Cefuroxime Axetil) 500 Mg Tab 500 MG PO Q12, #20 Insulin Glargine (Lantus Solostar) 100 Unit/Ml Inj 10 UNITS SC HS, PEN Referrals At Discharge Follow up Referrals: Garbage Collector Referral - Within 1-2 Weeks with Pedro Pillai MD Family Practice Referral - Within 1 Week with Aimee Crook C.RBrandonN.P Discharge Exam Review of Systems: Constitutional: No fever, No chills, No sweats, No weakness, No fatigue Respiratory: No cough, No shortness of breath, No hemoptysis Cardiovascular: No chest pain, No edema, No palpitations Abdomen: No pain, No nausea, No vomiting, No diarrhea, No constipation Musculoskeletal: No joint pain, No muscle pain, No swelling, No calf pain Genitourinary - Female: No dysuria, No hematuria Neurologic: No weakness, No numbness/tingling Psychiatric: No depression symptoms, No anxiety Hematologic / Lymphatic: No abnormal bleeding/bruising Integumentary: No rash, No itch, No new/changing skin lesions Physical Exam: General Appearance: no apparent distress, + obese Eyes: normal inspection, PERRL ENT: hearing grossly normal Neck: supple Respiratory/Chest: lungs clear, no respiratory distress, no accessory muscle use Cardiovascular: regular rate, rhythm Abdomen / GI: normal bowel sounds, non tender, soft Extremities: no calf tenderness, no pedal edema Neurologic/Psychiatric: alert, normal mood/affect, oriented x 3 Skin: normal color, warm/dry, no rash (Kenna Dia, AISHAC) Hospital Course HPI on admission: Pt is a 70 yo female with a history of COPD, CHF, CABG, CM, atrial fibrillation, AVR, IDDM who presents to the ER with worsening shortness of breath at rest. Pt reports she has been without her meds since May. She states "my doctor just stopped giving me medications." Pt also reports noncompliance with her CPAP, stating she only uses it 2-3x a week. Per nursing, she has been using her lantus and nebulizers only. Pt was sent here by PCP for evaluation for PE due to worsening sob and being off her xarelto for so long. Currently she denies any fevers, chills, N/V/D, abd pain or chest pain. Reports shortness of breath has slightly improved. SOB at rest & w/ exertion, ?secondary to PE vs COPD exacerbation vs CHF vs multifactorial due noncompliance of medications-RESOLVED: - Admit to tele for cardiac monitoring - Trend cardiac enzymes- peak trop 0.071, likely secondary to demand ischemia - CXR- no acute processes - ECHO completed - IV Heparin drip pending VQ scan for possible PE due to noncompliance of Xarelto and h/o a.fib -- VQ scan- low probability of PE; d/c Heparin, resume Xarelto 15 mg daily - O2 protocol, wean as tolerated- wears 1.5-2L O2 supplement at home Leukocytosis: - UA dirty, UCx unremarkable - No s/s of infection- likely secondary to IV Steroid treatment T1DM w/ hyperglycemia, likely secondary to poor diabetic management/IV steroid treatment: - Home regimen or Lantus 10 u HS and start Lantus 10 u BID due to elevated hA1C and IV Steroid treatment- continue to titrate as needed + BSG ACHS w/ sliding insulin scale -- At discharge, Lantus was increased to 9 u BID- she was instructed to log BSG 1-3 times per day and follow-up with PCP for further management -- She was given glucose monitor in hospital and strips were sent to pharmacy - hA1C= 7.8% - Diabetic education Permanent a.fib- rate controlled/hx of CABG/nonischemic CM/bi-ventricular AICD- STABLE: - Continue Coreg 25 mg BID, Lisinopril 5 mg daily, Lasix 40 mg daily, Diltiazem 180 mg daily - Follows w/ Dr. Pillai- has not had f/u since Fall 2015 and missed scheduled 6 month f/u- referral sent prior to discharge COPD w/ ?mild exacerbation- RESOLVED: - Continue Advair, Xopenex, and Atrovent - IV SoluMedrol 60 mg BID--> decreased to daily and continue to wean CKD stage IV- baseline Cr. ~2.0-2.4- STABLE: Follow PRP Dyslipidemia: Lipitor 40 mg daily DIAMOND: CPAP; patient is noncompliant- states she does not use it regularly and was suppose to have her machine checked months ago, but the home services never came GI Prophylaxis: Maalox PRN, IV Zofran PRN DVT Prophylaxis: Xarelto Code Status: LEVEL I, FULL Dispo: Discharge to home w/ family and [facility] - Nurse navigator to set follow-up appointment w/ PCP - All prescriptions were renewed and sent to [facility] per patient' s request - Glucose monitor given in hospital- strips sent to pharmacy - Referral placed for cardiology follow-up in 1-2 weeks Total Time Spent: Greater than 30 minutes This includes examination of the patient, discharge planning, medication reconciliation, and communication with other providers. (Kenna Dia, PA-C) I personally examined pt and verified all briscoe points w Jordin Dia PA-C feeling better wants to go home appreciative of care wants to f/u w Tapan Crook in [facility] office ROS otherwise negative except for as above vitals noted nad breathing unlabored no pallor or icterus, comfortable chronic systolic chf w dyspnea due to no treatment - improved on home meds dm2 - extensive discussion on insulin, postprandial glucose monitoring, and lifestyle changes stable for home (Alfonzo Webber, D.O.) Discharge Instructions Please refer to the electronic Patient Visit Report (Discharge Instructions) for additional information. (Kenna Dia, PA-C) Follow-Up Please follow-up with your PCP within 5-7 days Please follow-up/keep all of your subspecialty appointments (Kenna Dia, AISHAC) Additional Copies To Aimee Crook C.R.N.P
[2016-10-12 10:25] VITALS: BP 129/85; PULSE 94; TEMP 36.4; O2SAT 93
[2016-10-24] MEDS ORDERED: XRL10 PO (10:53)
[2016-10-24] MEDS ORDERED: DILT180C PO (10:53)
[2016-10-24] MEDS ORDERED: ATOR-24 PO (10:53)
[2016-10-24] MEDS ORDERED: CARV25TA2 PO (10:55)
[2016-10-24] MEDS ORDERED: FRS/40 PO (10:58)
[2016-10-24] MEDS ORDERED: LISI-729 PO (10:59)
[2016-10-24] MEDS ORDERED: INSDGIPEN SC (11:01)
[2016-10-24] MEDS ORDERED: ADVIN50/60 INH (11:02)
[2016-10-24] MEDS ORDERED: IPRA1AER2 INH (11:03)
[2016-10-24] MEDS ORDERED: VNTHFA/IN INH (11:10)
[2016-10-24] MEDS ORDERED: ALBU0.633 NEB (11:12)
[2016-10-24] MEDS ORDERED: CEPH500C2 PO (15:57)
== END 2016-10-12 11:51 | disposition home or self-care (01) | DRG 204 ==
LOC: EDBD 11:39 → C.EDC 11:40 → C.2T 17:17 → ENRESERV 17:26
PROVIDERS: ADMIT Hospitalist; ATTEND Family Medicine
DX: R06.02 Shortness of breath (principal); I26.99 Other pulmonary embolism without acute cor pulmonale; J44.1 Chronic obstructive pulmonary disease with (acute) exacerbation; I50.32 Chronic diastolic (congestive) heart failure; N18.4 Chronic kidney disease, stage 4 (severe); I24.8 Other forms of acute ischemic heart disease; I13.0 Hypertensive heart and chronic kidney disease with heart failure and stage 1 through stage 4 chronic kidney disease, or unspecified chronic kidney disease; Z68.41 Body mass index [BMI] 40.0-44.9, adult; E11.65 Type 2 diabetes mellitus with hyperglycemia; D72.829 Elevated white blood cell count, unspecified; T38.0X5A Adverse effect of glucocorticoids and synthetic analogues, initial encounter; Z91.14 Patient's other noncompliance with medication regimen; I48.91 Unspecified atrial fibrillation; E78.5 Hyperlipidemia, unspecified; G47.33 Obstructive sleep apnea (adult) (pediatric); E66.9 Obesity, unspecified; Z79.899 Other long term (current) drug therapy; Z79.01 Long term (current) use of anticoagulants; Z79.4 Long term (current) use of insulin; Z86.73 Personal history of transient ischemic attack (TIA), and cerebral infarction without residual deficits; Z95.1 Presence of aortocoronary bypass graft; Z95.810 Presence of automatic (implantable) cardiac defibrillator; Z83.3 Family history of diabetes mellitus; Z82.49 Family history of ischemic heart disease and other diseases of the circulatory system

== ENCOUNTER → 2016-10-21 | Outpatient (CLI) | payer OTHER ==
[~2016-10-21] MED LIST changes: -ADVIN25050 INH; +ADVIN50/60 INH; +ALBU0.633 NEB; -ALBUAER2 INH; -ALPPOPSD OPB; +ATOR-24 PO; +CARV25TA2 PO; +CEPH500C PO; +CEPH500C2 PO; -CLOP1TAB15 PO; -DILT120C68 PO; +DILT180C PO; +HYG/25 PO; +INSDGIPEN SC; -INSUINJ4 SC; +LISI-729 PO; -LNX125 PO; +LSN5 PO; +OXGN; +RIVA1.5T PO; +VNTHFA/IN INH; +XRL10 PO; -XRL15 PO
--- NOTE | 2016-10-21 17:05 | DIAGNOSTIC IMAGING REPORT ---
RENAL ULTRASOUND CLINICAL HISTORY: Blood in urine. COMPARISON STUDY: Renal ultrasound October 24, 2014. TECHNIQUE: Sonography of the kidneys and the urinary bladder was performed. FINDINGS: The right kidney measures 9.5 x 5.1 x 3.9 cm and the left measures 8.4 x 4 x 3.7 cm. Tubular anechoic structures within each renal sinus were shown on prior exams and likely reflect parapelvic cysts. There is a 2.6 cm left renal cortical cyst. There is no convincing evidence for hydronephrosis. There is moderate renal cortical thinning. Neither ureteral jet was identified. Bladder is otherwise unremarkable. IMPRESSION: 1. Tubular anechoic structures within each renal sinus which were shown on prior exams and favor parapelvic cysts rather than hydronephrosis. 2. Moderate bilateral renal atrophy. 3. 2.6 cm left renal cyst. 4. No calculi identified. Electronically signed by: Javier Garza M.D. 10/21/2016 5:04 PM Dictated Date/Time: 10/21/2016 5:00 PM
== END | disposition home or self-care (01) ==
LOC: C.ULTR 16:24
PROVIDERS: ATTEND Internal Medicine Nephrology
DX: E55.9 Vitamin D deficiency, unspecified (principal); I12.9 Hypertensive chronic kidney disease with stage 1 through stage 4 chronic kidney disease, or unspecified chronic kidney disease; N18.3 Chronic kidney disease, stage 3 (moderate); N25.81 Secondary hyperparathyroidism of renal origin; R93.8 Abnormal findings on diagnostic imaging of other specified body structures; N26.1 Atrophy of kidney (terminal); N28.1 Cyst of kidney, acquired; R31.29 Other microscopic hematuria

== ENCOUNTER → 2016-10-21 | Outpatient (CLI) | payer OTHER ==
[2016-10-21 15:13] LABS: URINE APPEARANCE CLEAR (CLEAR); URINE BILIRUBIN NEG (NEG); URINE COLOR RED; URINE NITRITE NEG (NEG); URINE PH 5.5 (4.5-7.5); UROBILINOGEN NEG (NEG); ZZUR CULT IF INDIC CLEAN CATCH NO
[2016-10-21 15:24] LABS: MANUAL MICROSCOPIC REQUIRED? NO; REVIEW REQ? NO
== END | disposition home or self-care (01) ==
LOC: C.LAB1850 13:36
PROVIDERS: ATTEND Internal Medicine Nephrology
DX: R31.29 Other microscopic hematuria (principal)

== ENCOUNTER → 2016-10-24 | Day surgery (SDC) | payer OTHER ==
[~2016-10-24] VITALS: Ht 154.9 cm; Wt 104.0 kg
[~2016-10-24] MED LIST changes: +ACETAMINOPHEN 325 MG TAB PO PRN; +ACETAMINOPHEN/CODEINE 300/30MG TAB PO PRN; +BACITRACIN 50000 UNIT VIAL ONE; +BACITRACIN OINT 0.9 GM PKT ONE; +CEFAZOLIN 1000MG/55 ML D5W IV SCH; +FENTANYL CITRATE INJ 50 MCG/1 ML 2 ML VIAL ONE; +KEFZOL SPECIAL PROCEDURE STOCK 1 GM ADDVIAL IV ONE; +LACTATED RINGER'S 1000ML 1,000 ML IV SCH; +LIDOCAINE HCL 1% 20 ML VIAL ONE; +MIDAZOLAM HCL 5 MG/ML 1 ML VIAL ONE
[2016-10-24 10:45] VITALS: BP 103/78; PULSE 77; TEMP 37.2; O2SAT 95; Ht 154.9 cm; Wt 104.0 kg
--- NOTE | 2016-10-24 12:22 | Procedure Note ---
Pre-Mod Sedation Assessment General Date of Moderate Sedation: Oct 24, 2016. Vital Signs: Vital Signs Past 12 Hours Date Time Temp Pulse Resp B/P (MAP) Pulse Ox O2 Delivery O2 Flow Rate FiO2 10/24/16 10:45 37.2 77 20 103/78 (86) 95 Room Air Review Cardiovascular: + irregularly irregular Abdomen: normal bowel sounds Lungs: lungs clear Pre-Sedation Airway Assessment Oral Cavity: Dental Abnormalities Short Thick Neck: Yes Hx of Sleep Apnea: Yes Smoking Status: Never Smoker Procedure Planning Contraindications-for Mod Sed: None Yes Notes The planned sedation has been discussed with the patient and consent obtained. I have identified the patient, determined the appropriateness of sedation and have assessed the patient immediately prior to the procedure. All medicine(s) and interventions are by my order.
--- NOTE | 2016-10-24 12:22 | History & Physical Bridge Note ---
H&P Re-Evaluation Bridge Note: I have examined the patient, reviewed the History & Physical and in the interval since the performance of the History & Physical I have noted the following changes of clinical significance: No changes noted. I reviewed the indications, procedure, risks and alternatives of ICD replacement with possible lead revision with her and her family and they understand and she agrees to proceed. Consent obtained.
--- NOTE | 2016-10-24 13:52 | Cardiology Procedure Brief Nt ---
Preliminary Cardiology Note Procedure Date Oct 24, 2016. Pre-Procedure Diagnosis ICD ASHLEY Post-Procedure Diagnosis same Procedure(s) Performed Biventricular ICD replacement Electrical Prospecting Supervisor Dr. Duong Progressive Assembler And Fitter(s) none Estimated Blood Loss 20 cc Preliminary Findings Good chronic lead measurements Recommendations Monitor briefly and discharge Specimens Old ICD, return to Medtronic Anesthesia local with sedation Complication(s) None Disposition MTU
--- NOTE | 2016-10-24 13:53 | Procedure Note ---
Post-Mod Sedation Assessment General Date of Moderate Sedation Oct 24, 2016. Vital Signs: Vital Signs Past 12 Hours Date Time Temp Pulse Resp B/P (MAP) Pulse Ox O2 Delivery O2 Flow Rate FiO2 10/24/16 13:48 56 16 121/104 (110) 99 Mask 3 10/24/16 10:45 37.2 77 20 103/78 (86) 95 Room Air Review - Discharge Criteria Vital Signs Stable: Yes Alert/Oriented/Conversant: Yes Returned to Baseline Mental St: Yes Nausea Absent/Minimal: Yes Pain/Discomfort/Absent/Minimal: Yes Normal/Baseline Respirations: Yes Active Bleeding?: No
[2016-10-24 14:05] VITALS: BP 119/75; PULSE 61; TEMP 36.6; O2SAT 92
[2016-10-24 14:35] VITALS: BP 101/74; PULSE 60; O2SAT 95
[2016-10-24 15:05] VITALS: BP 119/98; PULSE 61; O2SAT 94
[2016-10-24 15:35] VITALS: BP 105/74; PULSE 62; TEMP 36.6; O2SAT 91
--- NOTE | 2016-10-24 15:59 | Discharge Instructions ---
Discharge Instructions Date of Service Oct 24, 2016. Admission Reason for Admission: ICD at ASHLEY Discharge Discharge Diagnosis / Problem: ICD replacement Discharge Goals Goal(s): Improve disease control Activity Recommendations Activity Limitations: resume your previous activity . Instructions / Follow-Up Instructions / Follow-Up ACTIVITY RECOMMENDATIONS: * Do not raise affected arm over head for 2 weeks. SPECIAL CARE INSTRUCTIONS: * If bleeding occurs, apply direct pressure to area for 5 minutes. * Call your doctor if you have severe pain, fever, drainage or bleeding at site. * Keep dressing on and dry. * Keep any scheduled doctor's appointment. * Implant Card - hand held device with website information given. SKIN IRRITATION: * You may experience some redness and/or swelling in the area where radiation was administered. If any skin irritation occurs, please contact your family physician. FOLLOW UP VISIT: Dr. Duong 10/25/2016, 10:15 AM Current Hospital Diet Patient's current hospital diet: AHA Diet (Heart Healthy) Discharge Diet Recommended Diet: AHA Diet (Heart Healthy) Pending Studies Studies pending at discharge: no Laboratory Results Hemoglobin A1c Test 10/11/16 06:30 Range/Units Estimated Average Glucose 177 mg/dl Hemoglobin A1c 7.8 H 4.5-5.6 % Medical Emergencies . Who to Call and When: Medical Emergencies: If at any time you feel your situation is an emergency, please call 911 immediately. . Non-Emergent Contact Non-Emergency issues call your: Primary Care Provider . . "Provider Documentation" section prepared by Enrique Duong. . VTE Core Measure Inpt VTE Proph given/why not?: Other Anticoagulation
--- NOTE | 2016-10-24 16:02 | OPERATIVE REPORT ---
DATE OF OPERATION: 10/24/2016 AMBULATORY OPERATIVE REPORT PREOPERATIVE DIAGNOSIS: ICD elective replacement indicator. POSTOPERATIVE DIAGNOSIS: Same. PROCEDURE: Biventricular ICD replacement. SURGEON: Enrique Duong MD ANESTHESIA: Local with sedation. HISTORY: This is a 71-year-old woman who has a history of nonischemic cardiomyopathy and left bundle branch block. She underwent biventricular ICD implantation on 09/03/2012. Her ICD has reached ASHLEY due to battery depletion and requires replacement. In addition, she is in atrial fibrillation, she was on anticoagulation, which was subsequently stopped and then restarted relatively recently, that was Xarelto and that has been held for this procedure. DESCRIPTION OF PROCEDURE: After obtaining informed consent for the procedure, she was brought to the laboratory on 10/24/2016 being n.p.o. after midnight. She was identified in the laboratory, prepped and draped in a standard sterile manner for a left-sided ICD replacement. The left prepectoral region was anesthetized with 1% lidocaine local anesthetic and a 6-cm incision was made through the old implant scar and carried down to the ICD generator. The generator was dissected free of tissue and explanted. A bacitracin-soaked sponge (50,000 units in 50 mL normal saline solution) was placed in the pocket. The ICD was disconnected from the leads and confirmed to be a Medtronic Protecta XT model #CRTD, [id number], serial #[id number]. This device will be returned to [employer]. It reached recommended replacement time on 10/17/2016. The atrial lead is a Medtronic, model #5076, serial #[id number], implanted 09/03/2012. This lead was evaluated in bipolar configuration and a pulse width of 0.5 milliseconds, pacing could not be evaluated due to atrial fibrillation. The P-waves were sensed at 1.7 millivolts. Five-volt lead impedance was 487 ohms. This lead can be used. Plans are to convert her to sinus rhythm in the future. The right ventricular defibrillator lead is a Medtronic, model #6947M, serial #[id number], implanted 09/03/2012. This lead was evaluated in bipolar configuration at a pulse width of 0.5 milliseconds, the pacing threshold was 0.4 volts with a current of 0.8 milliamp, 5-volt lead impedance was 395 ohms and R waves were sensed at 12.6 millivolts. This is a good threshold and this lead can be used. The left ventricular lead is a Medtronic, model #4194, serial #[id number], implanted 09/03/2012. This lead was evaluated in the LV tip to LV ring configuration, the pacing threshold was 0.9 volts with a current of 1.1 milliamp, 5-volt lead impedance is 890 ohms and R waves were sensed at 6.6 millivolts. This is a good threshold and this lead can be used. A new ICD (Medtronic Viva XT) was attached to the leads and found to be functioning normally. The bacitracin-soaked sponge was removed from the pocket, hemostasis was obtained and the ICD was placed in the pocket. The incision was closed with a double running subcutaneous closure of 3-0 V-Loc absorbable suture, followed by running subcuticular skin closure of 4-0 V-Loc absorbable suture. Bacitracin ointment was placed on incision and a pressure dressing applied. Details of the explanted defibrillator and chronic leads are noted above. The new ICD is a Medtronic Viva XT CRTD, model #[id number], serial #[id number]. The ICD was reprogrammed in the laboratory to final settings. This is not an MRI compatible system. [facility]
[2016-10-24 16:05] VITALS: BP 100/62; PULSE 62; TEMP 36.6; O2SAT 92
== END | disposition home or self-care (01) ==
LOC: C.ACU 09:40
PROVIDERS: ATTEND Internal Medicine Cardiovascular Disease
DX: I48.0 Paroxysmal atrial fibrillation (principal); Z95.810 Presence of automatic (implantable) cardiac defibrillator; I42.9 Cardiomyopathy, unspecified; N18.3 Chronic kidney disease, stage 3 (moderate); E55.9 Vitamin D deficiency, unspecified; N25.81 Secondary hyperparathyroidism of renal origin; Z79.01 Long term (current) use of anticoagulants; K21.9 Gastro-esophageal reflux disease without esophagitis; I35.9 Nonrheumatic aortic valve disorder, unspecified; Z95.2 Presence of prosthetic heart valve; I25.10 Atherosclerotic heart disease of native coronary artery without angina pectoris; Z95.5 Presence of coronary angioplasty implant and graft; E11.22 Type 2 diabetes mellitus with diabetic chronic kidney disease; E78.5 Hyperlipidemia, unspecified; M19.90 Unspecified osteoarthritis, unspecified site

== ENCOUNTER → 2016-11-07 | Outpatient (CLI) | payer OTHER ==
[~2016-11-07] MED LIST changes: -ACETAMINOPHEN 325 MG TAB PO PRN; -ACETAMINOPHEN/CODEINE 300/30MG TAB PO PRN; -ALBINS/ INH; -BACITRACIN 50000 UNIT VIAL ONE; -BACITRACIN OINT 0.9 GM PKT ONE; -CEFAZOLIN 1000MG/55 ML D5W IV SCH; -CEPH500C PO; -CRG25 PO; -FENTANYL CITRATE INJ 50 MCG/1 ML 2 ML VIAL ONE; -HYG/25 PO; -KEFZOL SPECIAL PROCEDURE STOCK 1 GM ADDVIAL IV ONE; -LACTATED RINGER'S 1000ML 1,000 ML IV SCH; -LIDOCAINE HCL 1% 20 ML VIAL ONE; -LPT/40 PO; -LSN5 PO; -MIDAZOLAM HCL 5 MG/ML 1 ML VIAL ONE; -RIVA1.5T PO
== END | disposition home or self-care (01) ==
LOC: C.LABSPEC 17:03
PROVIDERS: ATTEND Urology
DX: R31.0 Gross hematuria (principal)

== ENCOUNTER 2016-12-19 09:59 | Emergency (ER) | payer OTHER ==
[2016-12-19 10:01] VITALS: TEMP 36.4; Ht 154.9 cm
[2016-12-19 10:11] VITALS: O2SAT 96
[2016-12-19] MEDS ORDERED: HYG/25 PO (10:33)
[2016-12-19] MEDS ORDERED: INSDGIPEN SC (10:33)
[2016-12-19 10:52] LABS: URINE APPEARANCE CLOUDY (CLEAR); URINE BILIRUBIN NEG (NEG); URINE COLOR YELLOW; URINE EPITHELIAL CELL AUTO 20-30 /lpf (0-5); URINE NITRITE NEG (NEG); URINE SPECIFIC GRAVITY 1.015 (1.000-1.030); UROBILINOGEN NEG (NEG)
[2016-12-19 10:57] LABS: MANUAL MICROSCOPIC REQUIRED? NO; REVIEW REQ? NO
[2016-12-19 11:32] LABS: BASO % 0.3 %; BASO ABS # 0.04 K/uL (0-0.2); COMPLETE YES; EOS % 1.2 %; HEMATOCRIT 41.8 % (37-47); IG% 0.2 %; LYMPH % 14.2 %; LYMPH ABS # 1.72 K/uL (1.2-3.4); MEAN CORPUSCULAR HEMOGLOBIN 29.7 pg (25-34); MEAN CORPUSCULAR HGB CONC 33.7 g/dl (32-36); MEAN PLATELET VOLUME 9.3 fL (7.4-10.4); MONO % 6.8 %; NEUT % 77.3 %; PLATELET COUNT 192 K/uL (130-400); RED BLOOD COUNT 4.75 M/uL (4.2-5.4); WHITE BLOOD COUNT 12.09 K/uL (4.8-10.8)
--- NOTE | 2016-12-19 11:59 | DIAGNOSTIC IMAGING REPORT ---
ABD/PELVIS WITHOUT FOR STONE HISTORY: 71 years-old Female acute right-sided flank pain. Concern for kidney stone. COMPARISON: CT abdomen and pelvis 07/15/2008 TECHNIQUE: Multiple axial CT images of the abdomen and pelvis were obtained without contrast. A dose lowering technique was used consistent with the principals of SWAPNIL. FINDINGS: There is moderate multichamber cardiac enlargement. Calcifications with fibrofatty changes of the left ventricular apex suggests prior infarction. Left pectoral pacer/defibrillator is noted with leads overlying the atria and right ventricle. There is mild mosaic attenuation of the lung bases with dependent subsegmental bibasilar atelectasis. There is a small left Bochdalek hernia. There is no pneumoperitoneum. Prior cholecystectomy. The liver, spleen, pancreas and adrenal glands are within normal limits. Exophytic low attenuating 2.2 x 2.6 cm lesion of the posterior interpolar left kidney suggests cyst. There is at least moderate left-sided renal atrophy with areas of multifocal renal parenchymal thinning. Mild areas of parenchymal thinning are seen on the right. There is no renal calculi or hydronephrosis. The ureters are normal in caliber. Urinary bladder and uterus are unremarkable. There is mild atherosclerosis of the abdominal aorta. No bulky retroperitoneal adenopathy is seen. There is a small diverticulum of the duodenum. No bowel obstruction. Scattered noninflamed colonic diverticula are present. The appendix is not seen and may be surgically absent. Soft tissues are unremarkable. There is moderate atrophy of the paraspinal and gluteal musculature. Bone island of the left femoral neck is noted. The bones are moderately demineralized. Bones appear intact with degenerative changes throughout the thoracolumbar spine and pelvis. IMPRESSION: 1. No acute intra-abdominal or intrapelvic abnormality identified, specifically no renal calculi or obstructive uropathy. 2. Moderate atrophy of the left kidney . 3. Prior cholecystectomy. 4. Cardiomegaly with evidence of prior left ventricular apical infarction. The above report was generated using voice recognition software. It may contain grammatical, syntax or spelling errors. Electronically signed by: Sumeet Vail M.D. 12/19/2016 11:58 AM Dictated Date/Time: 12/19/2016 11:51 AM
[2016-12-19 12:06] LABS: ALKALINE PHOSPHATASE 103 U/L (45-117); ALT/SGPT 21 U/L (12-78); AST/SGOT 16 U/L (15-37); BLOOD UREA NITROGEN 58 mg/dl (7-18); CALCIUM 9.8 mg/dl (8.5-10.1); CARBON DIOXIDE 28 mmol/L (21-32); CHLORIDE 104 mmol/L (98-107); GLUCOSE 122 mg/dl (70-99); POTASSIUM 4.5 mmol/L (3.5-5.1); SODIUM 139 mmol/L (136-145)
[2016-12-19] MEDS ORDERED: CEPHALEXIN MONOHYDRATE 250 MG CAP PO ONE (12:15)
[2016-12-19] MEDS ORDERED: CEPH500C PO (12:15)
[2016-12-19 12:20] VITALS: BP 101/67; PULSE 81; O2SAT 96
--- NOTE | 2016-12-19 17:27 | EMERGENCY ROOM VISIT NOTE ---
History Report prepared by Martha: Jodi Lott Under the Supervision of: Dr. Mitchel Ferguson M.D. First contact with patient: 10:15 Chief Complaint: HEMATURIA Stated Complaint: CAN'T HOLD URINE, BLEEDING Nursing Triage Summary: Patient reports she has been passing blood since last night states she thinks it is in her urine and also reports having a difficult time holding her urine. Patient having right lower quadrant pain states this has happened in the past. History of Present Illness The patient is a 71 year old female who presents to the Emergency Room with complaints of worsening hematuria for the past week. The patient reports that she had "traces of blood" in her urine in October. This resolved on its own after a couple of weeks. The patient states that she did not have any symptoms for the month for November, but at the beginning of December she developed hematuria again. Initially she was just having traces of blood in her urine, but yesterday even she reports very heavy bleeding. This heavy bleeding has continued today and she was incontinent of urine this morning. The patient also reports increased urinary frequency, burning with urination, and RLQ abdominal pain. She rates her pain as a 5/10 in severity. It was worse earlier but it has subsided. She is on Xarelto for a-fib. The patient has a history of kidney stones and states that it does not feel similar to her previous kidney stones. She denies any other bleeding including melena and hematochezia. The patient has an appointment on December [address] Falk of urology. Source of History: patient Onset: last week Position: other (bladder) Symptom Intensity: 5/10 Quality: other (hematuria) Timing: worsening Associated Symptoms: + abdominal pain (RLQ), + urinary symptoms (dysuria, increased frequency, incontinence), No melena, No hematochezia Review of Systems See HPI for pertinent positives & negatives. A total of 10 systems reviewed and were otherwise negative. 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 (16) Shortness of breath Family History Cancer Diabetes mellitus Hypertension Social History Smoking Status: Never Smoker Alcohol Use: none Drug Use: none Marital Status: Occupation Status: disabled Current/Historical Medications Scheduled Albuterol Sulfate (Albuterol Sulfate), 1 VIAL NEB QID Ascorbic Acid (Vitamin C), 1,000 MG PO QAM Atorvastatin (Lipitor), 40 MG PO DAILY Carvedilol (Coreg), 25 MG PO BID Cephalexin Monohydrate (Keflex), 500 MG PO QID Chlorthalidone (Hygroton), 25 MG PO DAILY Cholecalciferol (Vitamin D 1000 Unit), 1,000 INTER.UNIT PO QAM Diltiazem Hcl Coated Beads (Diltiazem Hcl Er), 1 CAP PO DAILY Fluticasone Prop/Salmeterol (Advair Diskus 500/50 60 Dose), 1 PUFF INH BID Furosemide (Lasix), 40 MG PO QAM Home O2 Therapy (Oxygen), 1.5 LITER NA PRN Insulin Glargine (Lantus Solostar), 11 UNITS SC QAM Insulin Glargine (Lantus Solostar), 9 UNITS SC QPM Ipratropium-Albuterol (Combivent Respimat), 2 PUFFS INH QID Lisinopril (Zestril), 5 MG PO DAILY Rivaroxaban (Xarelto), 15 MG PO DAILY Scheduled PRN Albuterol Hfa (Ventolin Hfa), 2-4 PUFFS INH Q4 PRN for SOB/Wheezing Allergies Coded Allergies: Aspirin (Verified Allergy, Intermediate, HIVES, 10/24/16) Iodinated Contrast Media (Verified Allergy, Intermediate, HIVES - MRI DYE , 10/24/16) Levofloxacin (Verified Allergy, Intermediate, HIVES, VEIN IRRITATION W/IV LEVAQUIN, 10/24/16) Erythromycin (Verified Allergy, Unknown, UNKNOWN, 10/24/16) Physical Exam Vital Signs Date Time Temp Pulse Resp B/P (MAP) Pulse Ox O2 Delivery O2 Flow Rate FiO2 12/19/16 12:20 81 20 101/67 96 12/19/16 11:51 81 20 101/67 96 Room Air 12/19/16 10:24 73 12/19/16 10:11 96 Room Air 12/19/16 10:01 36.4 93 20 103/58 96 Room Air Physical Exam Constitutional: Vital signs reviewed. Eyes: Pupils are equal round reactive to light. Conjunctiva are noninjected. ENT: Pharynx is clear without erythema or exudate. Mucous membranes are moist. Neck supple without meningeal signs. Respiratory: Clear to auscultation bilaterally. Breath sounds are equal bilaterally. Cardiovascular: Regular rate and rhythm. No rubs or gallops. GI: Soft, nondistended and nontender. Bowel sounds are present. Musculoskeletal: No peripheral edema. No CVA tenderness. Integumentary: No cyanosis. Neurological: The patient is awake and alert. No focal deficits. Psychiatric: Normal affect. Medical Decision & Procedures ER Provider Diagnostic Interpretation: Radiology results as stated below per my review and the radiologist's interpretation: ABD/PELVIS WITHOUT FOR STONE HISTORY: 71 years-old Female acute right-sided flank pain. Concern for kidney stone. COMPARISON: CT abdomen and pelvis 07/15/2008 TECHNIQUE: Multiple axial CT images of the abdomen and pelvis were obtained without contrast. A dose lowering technique was used consistent with the principals of SWAPNIL. FINDINGS: There is moderate multichamber cardiac enlargement. Calcifications with fibrofatty changes of the left ventricular apex suggests prior infarction. Left pectoral pacer/defibrillator is noted with leads overlying the atria and right ventricle. There is mild mosaic attenuation of the lung bases with dependent subsegmental bibasilar atelectasis. There is a small left Bochdalek hernia. There is no pneumoperitoneum. Prior cholecystectomy. The liver, spleen, pancreas and adrenal glands are within normal limits. Exophytic low attenuating 2.2 x 2.6 cm lesion of the posterior interpolar left kidney suggests cyst. There is at least moderate left-sided renal atrophy with areas of multifocal renal parenchymal thinning. Mild areas of parenchymal thinning are seen on the right. There is no renal calculi or hydronephrosis. The ureters are normal in caliber. Urinary bladder and uterus are unremarkable. There is mild atherosclerosis of the abdominal aorta. No bulky retroperitoneal adenopathy is seen. There is a small diverticulum of the duodenum. No bowel obstruction. Scattered noninflamed colonic diverticula are present. The appendix is not seen and may be surgically absent. Soft tissues are unremarkable. There is moderate atrophy of the paraspinal and gluteal musculature. Bone island of the left femoral neck is noted. The bones are moderately demineralized. Bones appear intact with degenerative changes throughout the thoracolumbar spine and pelvis. IMPRESSION: 1. No acute intra-abdominal or intrapelvic abnormality identified, specifically no renal calculi or obstructive uropathy. 2. Moderate atrophy of the left kidney . 3. Prior cholecystectomy. 4. Cardiomegaly with evidence of prior left ventricular apical infarction. The above report was generated using voice recognition software. It may contain grammatical, syntax or spelling errors. Electronically signed by: Sumeet Vail M.D. 12/19/2016 11:58 AM Dictated Date/Time: 12/19/2016 11:51 AM Laboratory Results 12/19/16 11:10 Red Blood Count 4.75, Mean Corpuscular Volume 88.0, Mean Corpuscular Hemoglobin 29.7, Mean Corpuscular Hemoglobin Concent 33.7, Mean Platelet Volume 9.3, Neutrophils (%) (Auto) 77.3, Lymphocytes (%) (Auto) 14.2, Monocytes (%) (Auto) 6.8, Eosinophils (%) (Auto) 1.2, Basophils (%) (Auto) 0.3, Neutrophils # (Auto) 9.34, Lymphocytes # (Auto) 1.72, Monocytes # (Auto) 0.82, Eosinophils # (Auto) 0.14, Basophils # (Auto) 0.04 12/19/16 11:10 Test 12/19/16 10:35 12/19/16 11:10 Urine Color YELLOW Urine Appearance CLOUDY (CLEAR) Urine pH 5.0 (4.5-7.5) Urine Specific [place] 1.015 (1.000-1.030) Urine Protein TRACE (NEG) Urine Glucose (UA) NEG (NEG) Urine Ketones NEG (NEG) Urine Occult Blood 3+ (NEG) Urine Nitrite NEG (NEG) Urine Bilirubin NEG (NEG) Urine Urobilinogen NEG (NEG) Urine Leukocyte Esterase LARGE (NEG) Urine WBC (Auto) >30 /hpf (0-5) Urine RBC (Auto) >30 /hpf (0-4) Urine Hyaline Casts (Auto) 1-5 /lpf (0-5) Urine Epithelial Cells (Auto) 20-30 /lpf (0-5) Urine Bacteria (Auto) 2+ (NEG) White Blood Count 12.09 K/uL (4.8-10.8) Red Blood Count 4.75 M/uL (4.2-5.4) Hemoglobin 14.1 g/dL (12.0-16.0) Hematocrit 41.8 % (37-47) Mean Corpuscular Volume 88.0 fL (80-100) Mean Corpuscular Hemoglobin 29.7 pg (25-34) Mean Corpuscular Hemoglobin Concent 33.7 g/dl (32-36) Platelet Count 192 K/uL (130-400) Mean Platelet Volume 9.3 fL (7.4-10.4) Neutrophils (%) (Auto) 77.3 % Lymphocytes (%) (Auto) 14.2 % Monocytes (%) (Auto) 6.8 % Eosinophils (%) (Auto) 1.2 % Basophils (%) (Auto) 0.3 % Neutrophils # (Auto) 9.34 K/uL (1.4-6.5) Lymphocytes # (Auto) 1.72 K/uL (1.2-3.4) Monocytes # (Auto) 0.82 K/uL (0.11-0.59) Eosinophils # (Auto) 0.14 K/uL (0-0.5) Basophils # (Auto) 0.04 K/uL (0-0.2) RDW Standard Deviation 46.5 fL (36.4-46.3) RDW Coefficient of Variation 14.4 % (11.5-14.5) Immature Granulocyte % (Auto) 0.2 % Immature Granulocyte # (Auto) 0.03 K/uL (0.00-0.02) Anion Gap 7.0 mmol/L (3-11) Estimated GFR () 17.9 Estimated GFR (Non- 15.4 BUN/Creatinine Ratio 20.0 (10-20) Calcium Level 9.8 mg/dl (8.5-10.1) Total Bilirubin 0.9 mg/dl (0.2-1) Direct Bilirubin mg/dl (0-0.2) Aspartate Amino Transf (AST/SGOT) 16 U/L (15-37) Alanine Aminotransferase (ALT/SGPT) 21 U/L (12-78) Alkaline Phosphatase 103 U/L (45-117) Total Protein 6.9 gm/dl (6.4-8.2) Albumin 3.6 gm/dl (3.4-5.0) Lipase 408 U/L (73-393) Laboratory results as reviewed by me. Medications Administered Medications (Trade) Dose Ordered Sig/Ion Route Start Time Stop Time Status Last Admin Dose Admin Cephalexin Monohydrate (Keflex Cap) 500 mg NOW ONCE PO 12/19/16 12:15 12/19/16 12:16 DC 12/19/16 12:19 500 MG ED Course 1015: The patient was evaluated in room A12B. A complete history and physical exam was performed. 1204: I reassessed the patient at this time. She is feeling better and resting comfortably. She states that the bleeding has since stopped. 1215: Keflex Cap 500 mg PO 1217: At this time I discussed the results and treatment plan with the patient. I answered all pertaining questions that she had. She expressed understanding and verbalized agreement. The patient will be discharged home. Medical Decision This is a 71-year-old female who presents with hematuria and flank pain. Differential diagnosis includes UTI, pyelonephritis, kidney stone, bladder mass , renal cell carcinoma, medication side effect. I did perform a limited focused review of portions of the patient's old chart on the electronic medical record. The patient has had no recent pertinent visits to this hospital. I did evaluate the patient as noted above. The patient is on a NOAC for atrial fibrillation. She is presenting with gross hematuria since yesterday. She also complains of some right flank pain. IV access was established. I did order and personally review the patient's urinalysis as described above. A urine culture was sent. I did order and review the patient's blood work as noted in the electronic medical record. Her creatinine is 2.9 which is slightly above her baseline of 2.4. Her white blood cell count is slightly elevated. She is not anemic. I did order a CT of the abdomen and pelvis. I did review the images myself as well as the radiology report as described above. There is no evidence of acute abnormality. She does have some atrophy of the kidney. Gross hematuria significantly improved. She has had no visible bleeding while in the emergency department. I did not wish to take her off of her anticoagulation given her history of atrial fibrillation. Since her bleeding is resolved I did recommend she keep her appointment with her urologist and follow up with her doctor. She was given a prescription for Keflex for a UTI. She was given return instructions as outlined below. Medication Reconcilliation Current Medication List: was personally reviewed by me Blood Pressure Screening Patient's blood pressure: Normal blood pressure Impression Primary Impression: Gross hematuria Additional Impressions: Anticoagulated UTI (urinary tract infection) Right flank pain Chronic kidney disease Scribe Attestation The scribe's documentation has been prepared under my direct and personally reviewed by me in its entirety. I confirm that the note above accurately reflects all work, treatment, procedures, and medical decision making performed by me. Departure Information Dispostion Home / Self-Care Prescriptions Cephalexin Monohydrate (Keflex) 500 Mg Cap 500 MG PO QID, #28 CAP Prov: Mitchel Ferguson M.D. 12/19/16 Referrals No Doctor, Assigned (PCP) Aimee Crook C.R.N.P Forms HOME CARE DOCUMENTATION FORM, IMPORTANT VISIT INFORMATION, WORK / SCHOOL INSTRUCTIONS Patient Instructions ED Flank Pain Uncertain Cause, ED Hematuria, ED UTI Cystitis Female, My [facility] Additional Instructions You have been examined and treated today on an emergency basis only. This is not a substitute for, or an effort to provide, complete comprehensive medical care. It is impossible to recognize and treat all injuries or illnesses in a single emergency department visit. It is therefore important that you follow up closely with your physician. Call as soon as possible for an appointment. Also keep your appointment with your urologist. Return for worsening symptoms or if you develop fever, vomiting, or any other concerning symptoms. Problem Qualifiers Additional Impressions: UTI (urinary tract infection) Urinary tract infection type: site unspecified Hematuria presence: with hematuria Qualified Codes: N39.0 - Urinary tract infection, site not specified ; R31.9 - Hematuria, unspecified Chronic kidney disease Chronic kidney disease stage: unspecified stage Qualified Codes: N18.9 - Chronic kidney disease, unspecified
== END 2016-12-19 12:20 | disposition home or self-care (01) ==
LOC: C.EDB 10:00 → C.EDA 12:20
DX: R31.0 Gross hematuria (principal); N39.0 Urinary tract infection, site not specified; I13.0 Hypertensive heart and chronic kidney disease with heart failure and stage 1 through stage 4 chronic kidney disease, or unspecified chronic kidney disease; I50.33 Acute on chronic diastolic (congestive) heart failure; N18.3 Chronic kidney disease, stage 3 (moderate); I48.91 Unspecified atrial fibrillation; E11.9 Type 2 diabetes mellitus without complications; I25.10 Atherosclerotic heart disease of native coronary artery without angina pectoris; E78.5 Hyperlipidemia, unspecified; Z86.73 Personal history of transient ischemic attack (TIA), and cerebral infarction without residual deficits; Z95.1 Presence of aortocoronary bypass graft; Z95.2 Presence of prosthetic heart valve; Z90.49 Acquired absence of other specified parts of digestive tract; Z79.4 Long term (current) use of insulin; Z79.899 Other long term (current) drug therapy; Z88.1 Allergy status to other antibiotic agents; Z88.6 Allergy status to analgesic agent; Z88.8 Allergy status to other drugs, medicaments and biological substances; Z91.041 Radiographic dye allergy status; Z80.9 Family history of malignant neoplasm, unspecified; Z83.3 Family history of diabetes mellitus; Z82.49 Family history of ischemic heart disease and other diseases of the circulatory system

== ENCOUNTER → 2017-01-07 | Outpatient (CLI) | payer OTHER ==
[~2017-01-07] MED LIST changes: +CEPH500C PO; -CEPH500C2 PO; +HYG/25 PO; -MECL1TAB42 PO
[2017-01-07 17:47] LABS: MEAN CELL VOLUME 88.4 fL (80-100); MEAN CORPUSCULAR HEMOGLOBIN 30.2 pg (25-34); MEAN CORPUSCULAR HGB CONC 34.1 g/dl (32-36); MEAN PLATELET VOLUME 9.9 fL (7.4-10.4); PLATELET COUNT 201 K/uL (130-400); RED BLOOD COUNT 4.41 M/uL (4.2-5.4)
[2017-01-07 17:48] LABS: BLOOD UREA NITROGEN 43 mg/dl (7-18); BUN/CREATININE RATIO 19.4 (10-20); CALCIUM 9.3 mg/dl (8.5-10.1); CARBON DIOXIDE 25 mmol/L (21-32); CHLORIDE 109 mmol/L (98-107); GLUCOSE 127 mg/dl (70-99); PHOSPHORUS 2.7 mg/dl (2.5-4.9); POTASSIUM 4.3 mmol/L (3.5-5.1); SODIUM 140 mmol/L (136-145)
[2017-01-07 17:51] LABS: URINE APPEARANCE CLEAR (CLEAR); URINE BILIRUBIN NEG (NEG); URINE COLOR YELLOW; URINE EPITHELIAL CELL AUTO >30 /lpf (0-5); URINE NITRITE NEG (NEG); URINE SPECIFIC GRAVITY 1.021 (1.000-1.030); UROBILINOGEN NEG (NEG); ZZUR CULT IF INDIC CLEAN CATCH YES
[2017-01-07 17:52] LABS: MANUAL MICROSCOPIC REQUIRED? NO; REVIEW REQ? NO
[2017-01-07 17:59] LABS: URINE PROTIEN/CREAT RATIO 0.2 (0-0.2); URINE TOTAL PROTEIN 47.6 mg/dl (0-11.9)
== END | disposition home or self-care (01) ==
LOC: C.LABPVFM 10:30
PROVIDERS: ATTEND Internal Medicine Nephrology
DX: I12.9 Hypertensive chronic kidney disease with stage 1 through stage 4 chronic kidney disease, or unspecified chronic kidney disease (principal); N18.3 Chronic kidney disease, stage 3 (moderate); N25.81 Secondary hyperparathyroidism of renal origin; R31.0 Gross hematuria; E55.9 Vitamin D deficiency, unspecified

== ENCOUNTER → 2017-04-11 | Outpatient (CLI) | payer OTHER ==
[2017-04-12 07:12] LABS: ESTIMATED AVERAGE GLUCOSE 157 mg/dl; HA1C FLAG Normal (Normal)
== END | disposition home or self-care (01) ==
LOC: C.LABPVFM 15:09
PROVIDERS: ATTEND Nurse Practitioner
DX: E11.22 Type 2 diabetes mellitus with diabetic chronic kidney disease (principal)

== ENCOUNTER 2019-05-11 08:45 | Inpatient (IN) ==
[2019-05-11 09:17] LABS: Basophils # (auto) 0.01 K/uL (0-0.2); Basophils % (auto) 0.1 %; Eosinophils # (auto) 0.15 K/uL (0-0.5); Eosinophils % (auto) 1.9 %; Hematocrit (blood only) 41.8 % (37-47); Hemoglobin 13.4 g/dL (12.0-16.0); Immature Granulocytes # (auto) 0.03 K/uL (0.00-0.02); Immature Granulocytes % (auto) 0.4 %; Lymphocytes # (auto) 0.97 K/uL (1.2-3.4); Mean Corpuscular Hemoglobin 28.1 pg (25-34); Mean Corpuscular Hgb Conc 32.1 g/dL (32-36); Mean Corpuscular Volume 87.6 fL (80-100); Mean Platelet Volume 9.5 fL (7.4-10.4); Monocytes # (auto) 0.43 K/uL (0.11-0.59); Monocytes % (auto) 5.3 %; Neutrophils # (auto) 6.46 K/uL (1.4-6.5); Neutrophils % (auto) 80.3 %; Platelet Count 175 K/uL (130-400); Red Blood Count 4.77 M/uL (4.2-5.4); White Blood Count 8.05 K/uL (4.8-10.8)
--- NOTE | 2019-05-11 09:27 | XRay Report ---
SINGLE VIEW CHEST CLINICAL HISTORY: Atypical chest pain. FINDINGS: An AP, portable, upright chest radiograph is compared to study dated 10/10/2016. The examinat ion is degraded by portable technique and apical lordotic positioning. The patient is status post mid line sternotomy. A 3-lead cardiac AICD is unchanged in position. There is mild pulmonary vascular con gestion. There is bibasilar atelectasis. No airspace consolidation or large pleural effusion is ident ified. No pneumothorax is seen. The skeletal structures are osteopenic. The bony thorax is grossly in tact. Degenerative change is noted in the shoulders. IMPRESSION: 1. Cardiomegaly and AICD. There is mild pulmonary vascular congestion. 2. No airspace consolidation or large pleural effusion is identified ACT 112: Negative or not required by law. Electronically signed by: Johan Martinez M.D. 05/11/2019 9:25 AM
[2019-05-11 09:34] LABS: Alanine Aminotransferase 34 U/L (12-78); Albumin Level 3.3 gm/dl (3.4-5.0); Aspartate Aminotransferase 27 U/L (15-37); BUN Creatinine Ratio 12.9 (10-20); Blood Urea Nitrogen 25 mg/dl (7-18); Calcium 9.5 mg/dl (8.5-10.1); Carbon Dioxide 23 mmol/L (21-32); Chloride 110 mmol/L (98-107); Est GFR (African American) 29.2; Est GFR (Non-African American) 25.2; Glucose 201 mg/dl (70-99); Lipase 141 U/L (73-393); Potassium 4.1 mmol/L (3.5-5.1); Sodium 140 mmol/L (136-145)
[2019-05-11 09:44] LABS: Alkaline Phosphatase 107 U/L (45-117); Globulin 3.2 gm/dl (2.5-4.0); Total Protein 6.5 gm/dl (6.4-8.2)
[2019-05-11 10:10] LABS: Troponin I 0.067 ng/ml (0-0.045)
[2019-05-11] MEDS ORDERED: FAMOTIDINE 20 MG TAB PO PRN (12:17)
[2019-05-11] MEDS ORDERED: EUCERIN CR 120 GM JAR EXT PRN (12:17)
[2019-05-11] MEDS ORDERED: ALBUTEROL 0.083% NEBU SOLN 3 ML VIAL INH PRN (12:17)
[2019-05-11] MEDS ORDERED: GLUCOSE 40% GEL 15 GM TUBE PO PRN (12:17)
[2019-05-11] MEDS ORDERED: CARBOHYDRATES FOR HYPOGLYCEMIA PO PRN (12:17)
[2019-05-11] MEDS ORDERED: GLUCAGON FOR INJ 1 MG VIAL SQ PRN (12:17)
[2019-05-11] MEDS ORDERED: GLUCOSE 10 TABS/TUBE PO PRN (12:17)
[2019-05-11] MEDS ORDERED: DEXTROSE 50% 50 ML SYRINGE IV PRN (12:17)
--- NOTE | 2019-05-11 12:17 | History & Physical Report ---
Date of Service May 11, 2019 Assessment & Plan (1) Biventricular ICD (implantable cardioverter-defibrillator) in place: [age]-year-old female with multiple medical comorbidities presenting after AICD firing. Per interrogation report possibly secondary to VT. patient feels well, no chest pain or palpitations. No dizziness. No EKG evidence of ischemia. Mildly elevated troponin. Suspect multifactorial etiology. Patient reports poor p.o. intake, possible electrolyte abnormality. She has missed several doses of her medications secondary to nausea and vomiting. Also appears to be mildly volume overloaded Admit to medical floor telemetry monitoring Check magnesium and phosphorus x1 and correct as needed Check BNP Check TSH Check 2D echocardiogram Cardiology consultation appreciated -Continue home cardiac medications to include carvedilol 25 mg p.o. twice daily, diltiazem 180 mg p.o. daily, metoprolol succinate 50 mg p.o. daily. Patient has not yet taken her home medications. Will administer dose upon arrival to the floor. Present on Admission?: Yes (2) V-tach: Possible ventricular tachycardia leading to AICD discharge. Patient presently V paced with frequent PVCs Plan as above (3) Elevated troponin: Mildly elevated troponin after AICD discharge, expected lab value. Patient denies chest pain/palpitations. No EKG ischemic changes Continue home cardiac meds -Trend troponin Present on Admission?: Yes (4) Shortness of breath: Patient reports 1 to 2 weeks of progressive shortness of breath as well as orthopnea. She had been inconsistently taking her medications at home. Volume status is difficult to assess secondary to body habitus however, she does appear to be mildly volume overloaded Will administer Lasix 40 mg IV x1 dose Continue home cardiac medications to include carvedilol, metoprolol, diltiazem, atorvastatin Supplemental oxygen as needed Nebs every 6 hours with albuterol as needed Present on Admission?: Yes (5) Chronic kidney disease, stage 4 (severe): BUN and creatinine near baseline. Electrolytes favorable Avoid nephrotoxic agents Renal dosing were needed Monitor BMP, urine output Present on Admission?: Yes (6) Eczema: Patient reports dry itchy skin on her posterior left arm. No bleeding or evidence of secondary infection Eucerin every 4 hours as needed Continue to monitor Present on Admission?: Yes (7) AF (paroxysmal atrial fibrillation): Patient presently V paced. Continue carvedilol, metoprolol, diltiazem Continue apixaban anticoagulation Present on Admission?: Yes (8) Aortic valve disorder: Status post bioprosthetic aortic valve placement. Echocardiogram as above Cardiology consultation as above Present on Admission?: Yes (9) CHF (congestive heart failure), NYHA class III: Suspect acute on chronic CHF contributing to patient's shortness of breath. Medication nonadherence secondary to nausea/vomiting and poor p.o. intake Lasix 40 mg IV x1 dose Monitor daily weights Monitor intake and output Continue cardiac meds as above Present on Admission?: Yes (10) Coronary artery disease: Patient status post coronary Adalberto artery bypass grafting done at the time of her aortic arch repair. By report, graft not placed due to to underlying CAD rather was placed for anterior wall motion abnormality. Patient with cardiomyopathy, depressed EF, wall motion abnormalities per recent echocardiogram Continue atorvastatin, carvedilol Trend troponin as above Cardiology consult as above Present on Admission?: Yes (11) Depression: Chronic. Stable. Continue escitalopram Present on Admission?: Yes (12) Hyperlipidemia: Chronic. Stable. Continue atorvastatin Present on Admission?: Yes (13) Hypertension: Chronic. Stable. Continue chlorthalidone Continue carvedilol, metoprolol, diltiazem Continue to monitor blood pressure Present on Admission?: Yes (14) Obstructive sleep apnea: Chronic. Patient is unable to wear mask at home secondary to claustrophobia. Consider nasal CPAP Present on Admission?: Yes (15) Vitamin D deficiency: Chronic. Stable. Vitamin D supplementation (16) Diabetes: Chronic. Blood sugar elevated 201 Lantus 10 units twice daily Insulin sliding scale Check hemoglobin A1c Consistent carb diet as tolerated F/E/N -Lasix 40 mg IV x1 dose. Check magnesium and phosphorus and replete electrolytes as needed. Heart healthy/consistent carb diet as tolerated. Prophylaxispatient anticoagulated with apixaban for paroxysmal atrial fibrilla tion, will give Pepcid 20 mg p.o. twice daily as needed as substitution for ranitidine Codefull per discussion with patient Dispositionadmit to medical floor with telemetry monitoring History of Present Illness Chief Complaint: AICD discharge Primary Care Provider: COOPER Cuevas Isabel Quick is a pleasant 73-year-old female with multiple medical comorbidities, specifically diabetes/hyperlipidemia/CKD/COPD/paroxysmal atrial fibrillation on apixaban anticoagulation. She has CAD status post CABG performed at [facility] in 2004 (PACHECO to LAD at the time of her aortic dissection repair. Reportedly not performed secondary to CAD). Ischemic cardiomyopathy with severely reduced ejection fraction of 30 to 35%, regional wall motion abnormalities involving the apex, inferior, posterior and lateral neff per echocardiogram 03/26/2019. She is biventricular AICD in place (09/03/2012) and follows with cardiology device clinic. History of bioprosthetic aortic valve replacement. History of aortic arch repair for dissection. Patient was sitting on her bed watching television this morning when she saw a "light flash" then she felt an electric shock go through her entire body. She denies chest pain/palpitations/dizziness/presyncope preceding or following the shock. She has had no prior AICD discharges. Reports that for the last week she has been experiencing nausea/vomiting and decreased oral intake. She has vomited her medications on several occasions and reports that she has not been taking her fluid pills regularly. She also reports worsening shortness of breath mostly with exertion and with bending over as well as orthopnea, cough productive of clear/cloudy sputum and wheezing. She typically does not wear oxygen but has a unit available to her at home. She has been requiring oxygen for the last 1 to 2 weeks. She is also been using her nebulizer machine twice daily with minimal improvement in symptoms. She reports taking 2 prednisone tablets today. On arrival to the ER patient is afebrile, hemodynamically stable, tachypneic at 26 breaths/min saturating 96% on 2 L. No complaints at this time. Allergies Allergy/AdvReac Type Severity Reaction Status Date / Time aspirin Allergy Intermediate HIVES Verified 05/11/19 11:12 Iodinated Contrast Media Allergy Intermediate HIVES - Verified 05/11/19 11:12 MRI DYE levofloxacin Allergy Intermediate HIVES, Verified 05/11/19 11:12 VEIN IRRITATION W/IV LEVAQUIN erythromycin base Allergy Unknown UNKNOWN Verified 05/11/19 11:12 Home Medications Home Medications Medication Instructions Recorded Confirmed Type albuterol sulfate 2.5 mg INHALATION Q4H PRN 05/18/18 05/11/19 History albuterol sulfate [Ventolin HFA] 2 puff INHALATION Q4H PRN 05/18/18 05/11/19 History ascorbic acid (vitamin C) [Vitamin 1,000 mg PO Q12H 05/18/18 05/11/19 History C] atorvastatin 40 mg PO DAILY 05/18/18 05/11/19 History carvedilol 25 mg PO BID 05/18/18 05/11/19 History cholecalciferol (vitamin D3) 1,000 unit PO DAILY 05/18/18 05/11/19 History [Vitamin D3] fluticasone propion-salmeterol 1 inh INHALATION BID 05/18/18 05/11/19 History [Advair Diskus] diltiazem HCl 180 mg PO DAILY 05/19/18 05/11/19 History escitalopram oxalate 20 mg PO DAILY 05/19/18 05/11/19 History ipratropium-albuterol [Combivent 1 puff INHALATION QID 05/19/18 05/11/19 History Respimat] metoprolol succinate 50 mg PO DAILY 05/19/18 05/11/19 History ondansetron HCl [Zofran] 4 mg PO Q6H PRN 05/19/18 05/11/19 History ibuprofen 200 mg tablet 200 mg PO Q6H PRN #30 tab 12/09/18 05/11/19 Rx insulin glargine 100 unit/mL (3 See Rx Instructions SUBCUT BID ml 12/09/18 05/11/19 History mL) subcutaneous pen ranitidine HCl 150 mg tablet 150 mg PO BID PRN #60 tab 12/09/18 05/11/19 Rx chlorthalidone 25 mg tablet 25 mg PO DAILY #90 tab 01/07/19 05/11/19 History apixaban 2.5 mg tablet 2.5 mg PO BID tab 03/26/19 05/11/19 History ketoconazole 2 % topical cream 1 applic TOPICAL BID PRN 03/26/19 05/11/19 History Past Med/Surg History Family History Mother No problems noted. Other Diabetes Social History Preferred Language: Kiswahili Communication Ability: Effective Clinical Nurse Specialist Required: No Beliefs That Will Affect Care: None marital status: / Current Living Situation: Family current occupational status: disabled Other Information That Helps Us Care for You: No Feels Safe at Home: Yes Safety Concerns: Feels Safe At This Time Smoking Status: Never smoker Do You Dip or Chew Tobacco: No ; Second Hand Exposure: No ; Tobacco Cessation Education Requested by Patient: No Hx Alcohol Use: No Hx Substance Use: No Review of Systems Review of Systems: All systems reviewed & are unremarkable except as noted in HPI & below Physical Exam Physical Exam: General: Obese female patient resting comfortably, NAD, non- toxic in appearance, AA&O x 4 Skin: warm, dry, intact, erythema on posterior left arm, dry skin, areas of excoriation on posterior neck HEENT: NC/AT, PERRL, EOMI, anicteric sclera, conjunctiva without injection, external ear normal to inspection and nontender, nares patent, moist mucus membranes, dentition intact, no oropharyngeal lesions, neck supple, trachea midline, no LAD, no thyromegaly, mild JVD to the angle of the jaw noted on the left Heart: +S1/S2, regular with occasional ectopy, no m/r/g Lungs: equal air entry bilaterally, diminished breath sounds in bases bilaterally, scattered end expiratory wheezing throughout Abd: +BS, soft, NT/ND, no masses/organomegaly/ascites Ext: warm, 2+ pulses in UE/LE bilaterally, no clubbing/cyanosis or edema Neuro: nonfocal, patient AA&O x 4, speech intact, no facial droop, moving all extremities on command with equal strength 5/5 Results & Data Vital Signs (Past 12 Hours) Vital Signs Temp Pulse Pulse Resp BP BP Pulse Ox 05/11/19 11:57 85 26 H 123/87 95 05/11/19 11:30 83 25 H 108/84 96 05/11/19 10:30 91 H 26 H 126/90 96 05/11/19 10:00 82 26 H 126/84 96 05/11/19 09:19 85 26 H 94 05/11/19 09:18 88 L 05/11/19 08:48 36.9 C 103 H 22 115/81 91 Laboratory Results Lab Results 05/11/19 05/11/19 Range/Units 09:05 09:05 WBC 8.05 (4.8-10.8) K/uL RBC 4.77 (4.2-5.4) M/uL Hgb 13.4 (12.0-16.0) g/dL Hct 41.8 (37-47) % MCV 87.6 (80-100) fL MCH 28.1 (25-34) pg MCHC 32.1 (32-36) g/dL RDW Std Deviation 51.0 H (36.4-46.3) fL RDW Coeff of Chriss 16.0 H (11.5-14.5) % Plt Count 175 (130-400) K/uL MPV 9.5 (7.4-10.4) fL Immature Gran % (Auto) 0.4 % Neut % (Auto) 80.3 % Lymph % (Auto) 12.0 % [place] % (Auto) 5.3 % Eos % (Auto) 1.9 % Baso % (Auto) 0.1 % Immature Gran # (Auto) 0.03 H (0.00-0.02) K/uL Neut # (Auto) 6.46 (1.4-6.5) K/uL Lymph # (Auto) 0.97 L (1.2-3.4) K/uL [place] # (Auto) 0.43 (0.11-0.59) K/uL Eos # (Auto) 0.15 (0-0.5) K/uL Baso # (Auto) 0.01 (0-0.2) K/uL Sodium 140 (136-145) mmol/L Potassium 4.1 (3.5-5.1) mmol/L Chloride 110 H (98-107) mmol/L Carbon Dioxide 23 (21-32) mmol/L Anion Gap 7.0 (3-11) BUN 25 H (7-18) mg/dl Creatinine 1.91 H (0.6-1.2) mg/dl Est Cr Clr Drug Dosing Not Reportable Est GFR ( Amer) 29.2 Est GFR (Non-Af Amer) 25.2 BUN/Creatinine Ratio 12.9 (10-20) Glucose 201 H (70-99) mg/dl Calcium 9.5 (8.5-10.1) mg/dl Total Bilirubin 1.0 (0.2-1) mg/dl AST 27 (15-37) U/L ALT 34 (12-78) U/L Alkaline Phosphatase 107 (45-117) U/L Troponin I 0.067 H* (0-0.045) ng/ml Total Protein 6.5 (6.4-8.2) gm/dl Albumin 3.3 L (3.4-5.0) gm/dl Globulin 3.2 (2.5-4.0) gm/dl Albumin/Globulin Ratio 1.0 (0.9-2) Lipase 141 (73-393) U/L Diagnostic Findings SINGLE VIEW CHEST CLINICAL HISTORY: Atypical chest pain. FINDINGS: An AP, portable, upright chest radiograph is compared to study dated 10/10/2016. The examination is degraded by portable technique and apical lordotic positioning. The patient is status post midline sternotomy. A 3-lead cardiac AICD is unchanged in position. There is mild pulmonary vascular congestion. There is bibasilar atelectasis. No airspace consolidation or large pleural effusion is identified. No pneumothorax is seen. The skeletal structures are osteopenic. The bony thorax is grossly intact. Degenerative change is noted in the shoulders. IMPRESSION: 1. Cardiomegaly and AICD. There is mild pulmonary vascular congestion. 2. No airspace consolidation or large pleural effusion is identified ACT 112: Negative or not required by law. Electronically signed by: Johan Martinez M.D. 05/11/2019 9:25 AM Dictated: 05/11/19923 Transcribed: 05/11/19923 ECG Additional Comments: The study shows ventricular paced rhythm at 110 bpm with frequent PVCs, QRS = 134, QTc prolonged at 508, Code Status & VTE Plan Code Status Full code VTE Prophylaxis Plan VTE Prophylaxis will be ordered: Yes PG Care Time/CCT Total # of Minutes Spent Total Time Spent with Patient: Total time spent is greater than 50% in coordination of care (as documented) at patient's floor/unit and/or counseling patient: (1) CHF (congestive heart failure), NYHA class III Congestive heart failure type: systolic Congestive heart failure chronicity: acute on chronic Qualified Code(s): I50.23 - Acute on chronic systolic (congestive) heart failure (2) Coronary artery disease Coronary Disease-Associated Artery/Lesion type: [place] artery [place] vs. transplanted heart: [place] heart Associated angina: without angina Qualified Code(s): I25.10 - Atherosclerotic heart disease of [place] coronary artery without angina pectoris (3) Depression Depression Type: major depressive disorder Major depression recurrence: recurrent Active/Remission status: remission status unspecified Qualified Code(s): F33.9 - Major depressive disorder, recurrent, unspecified (4) Hyperlipidemia Hyperlipidemia type: unspecified Qualified Code(s): E78.5 - Hyperlipidemia, unspecified (5) Hypertension Hypertension type: essential hypertension Qualified Code(s): I10 - Essential (primary) hypertension (6) Diabetes Diabetes mellitus type: type 2 Diabetes mellitus [facility]p insulin use: with supervisor intermediates use Diabetes mellitus complication status: without complication Qualified Code(s): E11.9 - Type 2 diabetes mellitus without complications; Z79.4 - long term acute care registered nurse (current) use of insulin
[2019-05-11] MEDS ORDERED: APIXABAN 2.5 MG TAB PO SCH (12:30)
[2019-05-11] MEDS ORDERED: FUROSEMIDE 40 MG in SYRINGE 0 ML IV ONE (12:30)
[2019-05-11] MEDS ORDERED: CHLORTHALIDONE 25 MG TAB PO SCH (12:30)
[2019-05-11] MEDS: ALBUT/IPRATROP 3MG/0.5MG NEB 3 ML VIAL NEB SCH ×3 (13:12→19:29)
[2019-05-11 13:25] LABS: Phosphorus 2.6 mg/dl (2.5-4.9); Thyroid Stimulating Hormone 1.99 uIu/ml (0.300-4.500)
[2019-05-11] MEDS: METOPROLOL SUCC 50MG EXT REL TAB PO SCH (13:26)
[2019-05-11] MEDS: ATORVASTATIN 40 MG TAB PO SCH (13:26)
[2019-05-11] MEDS: carvediloL 25 MG TAB PO SCH ×2 (13:26→20:12)
[2019-05-11] MEDS: ASCORBIC ACID 500 MG TAB PO SCH ×2 (13:27→20:13)
[2019-05-11] MEDS: dilTIAZem ER 180 MG CAPCR PO SCH (13:27)
[2019-05-11] MEDS: ESCITALOPRAM OXALATE 20 MG TAB PO SCH (13:27)
--- NOTE | 2019-05-11 13:43 | Emergency Department Note ---
Entered by Starla Miller acting as a scribe for History of Present Illness General Chief complaint: Cardiac Assessment Stated complaint: SHOCKING FEELING ALL OVER BODY, MAYBE PACEMAKER Source: patient History of Present Illness Onset (ago): hour(s) 1 Location: chest Pain Consistency: + other (episode ) Maximum Pain Intensity: 2 Quality: + other (shock) Associated symptoms: + chest pain, + nausea/vomiting and + other (negative runny nose; negative problems with bowel movements); no cough and no shortness of breath The patient is a 73 year old female who presents to the Emergency Room with complaints of an episode of a shock in her chest that occurred 1 hour prior to arrival. The patient states that she was sitting on her bed while watching TV w hen she saw a light flash and "something shocked" her for a second. The patient denies chest pain prior to this episode but states that she has had chest pain since this time. The patient states that she is nauseous currently and vomited one time this morning. The patient states that last week she was vomiting but states that this resolved until this morning. She states that she has had shortness of breath since last week but states that her nebulizer treatments have been relieving this. The patient states that she used a nebulizer treatment and took Prednisone this morning for her shortness of breath and denies any shortness of breath currently. The patient denies cough, runny nose, and pro blems with her bowel movements. The patient states that she is on blood thinners. Home Medications Home Medications Medication Instructions Recorded Confirmed Type albuterol sulfate 2.5 mg INHALATION Q4H PRN 05/18/18 05/11/19 History albuterol sulfate [Ventolin HFA] 2 puff INHALATION Q4H PRN 05/18/18 05/11/19 History ascorbic acid (vitamin C) [Vitamin 1,000 mg PO Q12H 05/18/18 05/11/19 History C] atorvastatin 40 mg PO DAILY 05/18/18 05/11/19 History carvedilol 25 mg PO BID 05/18/18 05/11/19 History cholecalciferol (vitamin D3) 1,000 unit PO DAILY 05/18/18 05/11/19 History [Vitamin D3] fluticasone propion-salmeterol 1 inh INHALATION BID 05/18/18 05/11/19 History [Advair Diskus] diltiazem HCl 180 mg PO DAILY 05/19/18 05/11/19 History escitalopram oxalate 20 mg PO DAILY 05/19/18 05/11/19 History ipratropium-albuterol [Combivent 1 puff INHALATION QID 05/19/18 05/11/19 History Respimat] metoprolol succinate 50 mg PO DAILY 05/19/18 05/11/19 History ondansetron HCl [Zofran] 4 mg PO Q6H PRN 05/19/18 05/11/19 History ibuprofen 200 mg tablet 200 mg PO Q6H PRN #30 tab 12/09/18 05/11/19 Rx insulin glargine 100 unit/mL (3 See Rx Instructions SUBCUT BID ml 12/09/18 05/11/19 History mL) subcutaneous pen ranitidine HCl 150 mg tablet 150 mg PO BID PRN #60 tab 12/09/18 05/11/19 Rx chlorthalidone 25 mg tablet 25 mg PO DAILY #90 tab 01/07/19 05/11/19 History apixaban 2.5 mg tablet 2.5 mg PO BID tab 03/26/19 05/11/19 History ketoconazole 2 % topical cream 1 applic TOPICAL BID PRN 03/26/19 05/11/19 History Allergies Allergy/AdvReac Type Severity Reaction Status Date / Time aspirin Allergy Intermediate HIVES Verified 05/11/19 11:12 Iodinated Contrast Media Allergy Intermediate HIVES - Verified 05/11/19 11:12 MRI DYE levofloxacin Allergy Intermediate HIVES, Verified 05/11/19 11:12 VEIN IRRITATION W/IV LEVAQUIN erythromycin base Allergy Unknown UNKNOWN Verified 05/11/19 11:12 Past Med/Surg History Medical History (Updated 05/11/19 @ 12:35 by Emily Dickerson DO) AF (paroxysmal atrial fibrillation) (Chronic) Anticoagulated (Chronic) Aortic valve disorder (Chronic) Asthma (Chronic) Biventricular ICD (implantable cardioverter-defibrillator) in place (Chronic) Cardiomyopathy (Resolved 07/12/11) CHF (congestive heart failure), NYHA class III (Chronic) Chronic kidney disease, stage 4 (severe) (Chronic) COPD with acute exacerbation (Resolved) Coronary artery disease (Chronic 11/23/10) CVA (cerebral vascular accident) (Resolved 11/23/10) Depression (Chronic) Diabetes Diabetes mellitus type 2 in nonobese (Chronic 11/23/10) History of - coronary artery bypass grafting (Resolved 11/23/10) Hyperlipidemia (Chronic 11/23/10) Hypertension (Chronic) 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 Other Diabetes Social History Preferred Language: Frisian Communication Ability: Effective Ward Service Supervisor Required: No Beliefs That Will Affect Care: None marital status: / Current Living Situation: Family current occupational status: disabled Other Information That Helps Us Care for You: No Feels Safe at Home: Yes Safety Concerns: Feels Safe At This Time Smoking Status: Never smoker Do You Dip or Chew Tobacco: No ; Second Hand Exposure: No ; Tobacco Cessation Education Requested by Patient: No Hx Alcohol Use: No Hx Substance Use: No Review of Systems See HPI for pertinent positives & negatives. and A total of 10 systems reviewed and were otherwise negative Physical Exam Vital Signs Vital Signs - 24 hr 05/11/19 08:48 05/11/19 09:13 05/11/19 09:18 Temperature 36.9 C Temperature Source Oral Pulse Rate 103 H Pulse Rate [Apical] Pulse Rhythm Respiratory Rate 22 Respiratory Effort / Characteristics Non-Labored Short of Breath Respiratory Depth Normal Respiratory Pattern Regular Blood Pressure 115/81 Blood Pressure [Left Arm] Blood Pressure Mean 92 Blood Pressure Mean [Left Arm] Blood Pressure Position Sitting Pulse Oximetry 91 88 L Oxygen Delivery Method Room Air Nasal Cannula Room Air Nasal Cannula Oxygen Flow Rate 2 Sepsis Recent Fever Within 48 Hours No Sepsis New/Unexplained Change in Mental Status No Sepsis Action Taken by Nursing No Action Required Oxygen Flow Rate - Titration 2 Pulse Oximetry Post Tiitration 94 05/11/19 09:19 05/11/19 10:00 05/11/19 10:30 Temperature Temperature Source Pulse Rate 85 Pulse Rate [Apical] 82 91 H Pulse Rhythm Irregular Respiratory Rate 26 H 26 H 26 H Respiratory Effort / Characteristics Respiratory Depth Respiratory Pattern Blood Pressure Blood Pressure [Left Arm] 126/84 126/90 Blood Pressure Mean Blood Pressure Mean [Left Arm] 98 102 Blood Pressure Position Pulse Oximetry 94 96 96 Oxygen Delivery Method Nasal Cannula Nasal Cannula Nasal Cannula Oxygen Flow Rate 2 2 2 Sepsis Recent Fever Within 48 Hours Sepsis New/Unexplained Change in Mental Status Sepsis Action Taken by Nursing Oxygen Flow Rate - Titration Pulse Oximetry Post Tiitration GENERAL: Sitting up in bed, wearing hospital gown, disheveled, chronically ill- appearing, obese, on nasal cannula oxygen. EYE EXAM: normal conjunctiva OROPHARYNX: no exudate, no erythema, lips, buccal mucosa, and tongue normal and mucous membranes are moist NECK: supple, no nuchal rigidity, no adenopathy, non-tender LUNGS: Diminished [place] movement throughout. Normal chest wall mechanics HEART: no murmurs, S1 normal and S2 normal ABDOMEN: abdomen soft, non-tender, normo-active bowel sounds, no masses, no rebound or guarding. BACK: Back is symmetrical on inspection and there is no deformity, no midline tenderness, no CVA tenderness. SKIN: no rashes and no bruising UPPER EXTREMITIES: upper extremities are grossly normal. LOWER EXTREMITIES: No pitting edema. Calves equal bilaterally. NEURO EXAM: Normal sensorium, cranial nerves II-XII grossly intact, normal speech, no gross weakness of arms, no gross weakness of legs. Course Course ED COURSE: Vital signs were reviewed and showed tachycardia. The patients medical record was reviewed The above diagnostic studies were performed and reviewed. ED treatments and interventions as stated above. 0857: The patient was evaluated in room B3B. A complete history and physical examination was performed. 0930: Upon reevaluation, the patient's heart rate is 210. Per [employer] there was questionable Vfib versus Afib with RVR. The reading suggests volume overload. 0959: I discussed the case with Dr. Li-Cardiology who recommends not changing anything and states he will come to evaluate the patient. 1003: Upon reevaluation, the patient is updated and resting comfortably. I discussed my findings with the patient and she understands and agrees with the treatment plan. Based on the patients age, coexisting illnesses, exam and lab findings the decision to treat as an inpatient was made. The patient remained stable while under my care. 1018: The patient will be evaluated for further management. I discussed the case with Dr. Dickerson-[facility] Hospitalist who accepts the patient for further evaluation. Administered Medications Albuterol (Duoneb) 3 ml NEB Q6 [place] Stop: 06/10/19 12:16 Last Admin: 05/11/19 13:12 Dose: 3 ml Documented by: [id number] Apixaban (Eliquis) 2.5 mg PO BID [place] Stop: 06/10/19 12:29 Last Admin: 05/11/19 13:27 Dose: 2.5 mg Documented by: [id number] Ascorbic Acid (Vitamin C) 1,000 mg PO Q12 [place] Stop: 06/10/19 12:29 Last Admin: 05/11/19 13:27 Dose: 1,000 mg Documented by: [id number] Atorvastatin Calcium (Lipitor) 40 mg PO DAILY [place] Stop: 06/10/19 12:29 Last Admin: 05/11/19 13:26 Dose: 40 mg Documented by: [id number] Carvedilol (Coreg) 25 mg PO BID [place] Stop: 06/10/19 12:29 Last Admin: 05/11/19 13:26 Dose: 25 mg Documented by: [id number] Chlorthalidone (Hygroton) 25 mg PO DAILY [place] Stop: 06/10/19 12:29 Last Admin: 05/11/19 13:26 Dose: 25 mg Documented by: [id number] Diltiazem HCl (Tiazac) 180 mg PO DAILY [place] Stop: 06/10/19 12:29 Last Admin: 05/11/19 13:27 Dose: 180 mg Documented by: [id number] Escitalopram Oxalate (Lexapro Tab) 20 mg PO DAILY [place] Stop: 06/10/19 12:29 Last Admin: 05/11/19 13:27 Dose: 20 mg Documented by: [id number] Metoprolol Succinate (Toprol Xl) 50 mg PO DAILY [place] Stop: 06/10/19 12:29 Last Admin: 05/11/19 13:26 Dose: 50 mg Documented by: [id number] Discontinued Medications Furosemide 40 mg/ Syringe 4 mls @ 4 mls/min IV ONE ONE Stop: 05/11/19 12:31 Last Admin: 05/11/19 13:27 Dose: 4 mls/min Documented by: [id number] Medical Decision Making Differential Diagnosis Differential diagnoses includes but is not limited to pneumonia, bronchitis, COPD/Asthma exacerbation, pneumothorax, pulmonary embolism, congestive heart marquis lure, acute coronary syndrome Medical Records Attestation: I reviewed the patient's medical records. Home Medications Current Medication List: was personally reviewed by me Laboratory Data Attestation: I reviewed the patient's lab results. Result diagrams: 05/11/19 09:05 05/11/19 09:05 Lab Results 05/11/19 05/11/19 Range/Units 09:05 09:05 WBC 8.05 (4.8-10.8) K/uL RBC 4.77 (4.2-5.4) M/uL Hgb 13.4 (12.0-16.0) g/dL Hct 41.8 (37-47) % MCV 87.6 (80-100) fL MCH 28.1 (25-34) pg MCHC 32.1 (32-36) g/dL RDW Std Deviation 51.0 H (36.4-46.3) fL RDW Coeff of Chriss 16.0 H (11.5-14.5) % Plt Count 175 (130-400) K/uL MPV 9.5 (7.4-10.4) fL Immature Gran % (Auto) 0.4 % Neut % (Auto) 80.3 % Lymph % (Auto) 12.0 % Guthrie % (Auto) 5.3 % Eos % (Auto) 1.9 % Baso % (Auto) 0.1 % Immature Gran # (Auto) 0.03 H (0.00-0.02) K/uL Neut # (Auto) 6.46 (1.4-6.5) K/uL Lymph # (Auto) 0.97 L (1.2-3.4) K/uL Guthrie # (Auto) 0.43 (0.11-0.59) K/uL Eos # (Auto) 0.15 (0-0.5) K/uL Baso # (Auto) 0.01 (0-0.2) K/uL Sodium 140 (136-145) mmol/L Potassium 4.1 (3.5-5.1) mmol/L Chloride 110 H (98-107) mmol/L Carbon Dioxide 23 (21-32) mmol/L Anion Gap 7.0 (3-11) BUN 25 H (7-18) mg/dl Creatinine 1.91 H (0.6-1.2) mg/dl Est Cr Clr Drug Dosing Not Reportable Est GFR ( Amer) 29.2 Est GFR (Non-Af Amer) 25.2 BUN/Creatinine Ratio 12.9 (10-20) Glucose 201 H (70-99) mg/dl Calcium 9.5 (8.5-10.1) mg/dl Total Bilirubin 1.0 (0.2-1) mg/dl AST 27 (15-37) U/L ALT 34 (12-78) U/L Alkaline Phosphatase 107 (45-117) U/L Troponin I 0.067 H* (0-0.045) ng/ml Total Protein 6.5 (6.4-8.2) gm/dl Albumin 3.3 L (3.4-5.0) gm/dl Globulin 3.2 (2.5-4.0) gm/dl Albumin/Globulin Ratio 1.0 (0.9-2) Lipase 141 (73-393) U/L Imaging Data Radiologist's Impression: Radiology results as stated below per my review and the radiologist's interpretation: SINGLE VIEW CHEST CLINICAL HISTORY: Atypical chest pain. FINDINGS: An AP, portable, upright chest radiograph is compared to study dated 10/10/2016. The examination is degraded by portable technique and apical lordotic positioning. The patient is status post midline sternotomy. A 3-lead cardiac AICD is unchanged in position. There is mild pulmonary vascular congestion. There is bibasilar atelectasis. No airspace consolidation or large pleural effus ion is identified. No pneumothorax is seen. The skeletal structures are osteopenic. The bony thorax is grossly intact. Degenerative change is noted in the shoulders. IMPRESSION: 1. Cardiomegaly and AICD. There is mild pulmonary vascular congestion. 2. No airspace consolidation or large pleural effusion is identified ACT 112: Negative or not required by law. Electronically signed by: Johan Martinez M.D. 05/11/2019 9:25 AM ECG Data Attestation: I personally reviewed and interpreted this ECG as follows: Indication: + chest pain and + SOB/dyspnea Rate (beats per minute): 100 Rhythm: + other (ventricularly paced) ECG ST segments: + Nonspecific ST abnormalities (inferior ) ECG Findings: + PVCs (multiple consecutive ) and + Other (poor baseline ) Comparison ECG Date: from (10/24/16) Change: no significant change Blood Pressure Blood Pressure Findings: Elevated blood pressure Blood Pressure Disposition: elevated BP felt to be situational MDM Narrative Patient is a 73-year-old female who presents the ER for chest pain which has stayed for several seconds. She notes she saw stars and went throughout her whole chest. [place]ilt[place] like she got shocked. She has a history of A. fib, CAD, diabetes, hypertension, CHF and cardiomyopathy. ICD was interrogated and showed an episode with a heart rate of 210 which was difficult to interpret whether it was VT versus A. fib with RVR. Do favor likely VT. IV was established blood work was obtained showed no significant leukocytosis or anemia. BMP with a creatinine of 1.9 consistent with previous. LFTs bilirubin was unremarkable. Troponin positive at 0.067. BMP slightly elevated as well. Lipase and TSH was unremarkable. Chest x-ray with mild congestion. EKG did show short run of PVCs. Patient was discussed with cardiology who recommended holding on any additional or change in medications. Discussed with the hospitalist. Patient was admitted for further work-up. Impression & Plan V-tach, Elevated troponin, Shortness of breath, CHF exacerbation Discharge Plan Visit Data *Final* Discharge Date/Time: 05/11/19 11:57 Chief Complaint: Cardiac Assessment Stated Complaint: SHOCKING FEELING ALL OVER BODY, MAYBE PACEMAKER ED Provider: Alfonzo Montague Discharge Problem: V-tach, Elevated troponin, Shortness of breath, CHF exacerbation Patient Disposition: Admitted As Inpatient Discharge Instructions Interventions: ED Discharge Assessment Last Done: 05/11/19 11:57 Discharge Problem: CHF exacerbation Qualifiers: Heart failure type: unspecified Qualified Code(s): I50.9 - Heart failure, unspecified The scribe's documentation has been prepared under my direction and personally reviewed by me in its entirety. I confirm that the note above accurately reflects all work, treatment, procedures, and medical decision making performed by me.
[2019-05-11] MEDS: FLUTICASONE/SALMETEROL (ADVAIR) 500/50 INH 14 PUFF INH SCH ×2 (13:52→20:11)
[2019-05-11] MEDS ORDERED: MICONAZOLE NITRATE POWDER 43 GM EXT PRN (14:02)
[2019-05-11] MEDS: INSULIN ASPART 100 UNITS/ML 3 ML PEN SC SCH ×3 (14:22→20:14)
--- NOTE | 2019-05-11 16:53 | Cardiology Consultation ---
Date of Consultation May 11, 2019 Assessment & Plan (1) V-tach: A interrogation of her device suggests that the rhythm responsible for therapy was ventricular tachycardia. Patient was in permanent atrial fibrillation. She was having high ventricular rates at times but the rhythm regularized immediately prior to therapy. Unfortunately, the device was not programmed to record a far field electrogram, but I do believe the most likely arrhythmia was ventricular tachycardia. It is possible that this resulted from decompensation of her cardiomyopathy in the presence of congestive heart failure. She also missed several doses of medications and has not been well lately. Her electrolytes at the time of presentation were normal. We will treat her heart failure with diuresis Will increase her beta-blockade (2) Elevated troponin: Very minimally elevated. Likely due to both her cardiomyopathy, congestive heart failure and device therapy. Do not believe this is payroll representative of an acute coronary syndrome. Will not pursue an ischemic evaluation at this time. (3) Shortness of breath: Her symptoms are consistent with decompensated heart failure. She certainly had orthopnea. She has not have any response from her typical therapies for COPD. She diuresed this afternoon with a single dose of intravenous Lasix. Her lung examination is relatively benign currently she is lying flat without dyspnea. Think we can change her outpatient diuretic regimen from chlorthalidone to Lasix. (4) AF (paroxysmal atrial fibrillation): She is now converted to sinus rhythm. She would likely revert back to atrial fibrillation. I do not think we need to make any attempt to maintain atrial fibrillation. However, she would likely benefit from an AV node a blation. Her pacing percentage was poor. She paces in the ventricle less than 90 percent of the time. She had some high ventricular rates and the device would suggest that recently she has had ventricular rates over 100 beats per minute. While we could intensify her medical therapy, I do not see any downside to ablating the AV node at this point. This may also allow us to discontinue her diltiazem which may have some deleterious effects in the setting of her cardiomyopathy. She has been maintained on reduced dose apixaban. Given her age in weight she would likely benefit from the standard dose of 5 milligrams twice daily. (5) Biventricular ICD (implantable cardioverter-defibrillator) in place: Normal function. Pacing less than 90 percent. This is due to permanent atrial fibrillation. (6) Cardiomyopathy: Longstanding and nonischemic. Present prior to her dissection, valve replacement and bypass. He has been maintained primarily on beta-blockade due to orthostatic symptoms with lisinopril. (7) Coronary artery disease: She underwent single-vessel bypass at the time of her valve replacement several years ago. No current symptoms suggestive of coronary insufficiency or ischemia. Continue on beta-blockade, high-dose atorvastatin and apixaban History of Present Illness Reason for Consultation: ICD firing Requesting Physician: Tuan Attending Physician: Emily Dickerson, History of Present Illness Patient is a 73-year-old woman with an extensive cardiac history to include aortic dissection, bioprosthetic aortic valve replacement, single-vessel bypass, a nonischemic cardiomyopathy and permanent atrial fibrillation who had previously undergone implantation of a biventricular ICD. Patient states that this morning she was resting and watching television when and she received therapy from her device. Immediately prior she did report feeling somewhat dizzy. She felt as if she got an electric shock. She did not report chest pain leading up to the event. She felt relatively well afterwards. She did not reca ll losing consciousness although may have done so for brief 2nd or 2. For the past 6 days the patient has not felt well. She states that she has had difficulty eating and has been vomiting. She reports some noncompliance with medicines as a result of throwing him up. She has tried to keep hydrated but has not been able to eat much. She denied overt fevers and chills. However, she does feel cold most of the time. She did not report symptoms of chest pain or pain at other sites. She has not been ambulating or very active recently. She has also had significant breathing difficulty recently. She states that approximately 2 weeks ago her breathing began to get worse. She was hoping that the use of supplemental oxygen at nighttime and more frequent use of her nebulizer would improve her symptoms but it did not. She actually took 2 doses of prednisone in the hopes of improving her breathing. She has had orthopnea and paroxysmal nocturnal dyspnea as well. Currently she is feeling much better. She was lying flat in bed not report any symptoms of dyspnea. She has no symptoms of chest pain currently. She is able to urinate and actually tolerated her diet this afternoon. No nausea or abdominal discomfort. Allergies Allergy/AdvReac Type Severity Reaction Status Date / Time aspirin Allergy Intermediate HIVES Verified 05/11/19 11:12 Iodinated Contrast Media Allergy Intermediate HIVES - Verified 05/11/19 11:12 MRI DYE levofloxacin Allergy Intermediate HIVES, Verified 05/11/19 11:12 VEIN IRRITATION W/IV LEVAQUIN erythromycin base Allergy Unknown UNKNOWN Verified 05/11/19 11:12 Home Medications Home Medications Medication Instructions Recorded Confirmed Type albuterol sulfate 2.5 mg INHALATION Q4H PRN 05/18/18 05/11/19 History albuterol sulfate [Ventolin HFA] 2 puff INHALATION Q4H PRN 05/18/18 05/11/19 History ascorbic acid (vitamin C) [Vitamin 1,000 mg PO Q12H 05/18/18 05/11/19 History C] atorvastatin 40 mg PO DAILY 05/18/18 05/11/19 History carvedilol 25 mg PO BID 05/18/18 05/11/19 History cholecalciferol (vitamin D3) 1,000 unit PO DAILY 05/18/18 05/11/19 History [Vitamin D3] fluticasone propion-salmeterol 1 inh INHALATION BID 05/18/18 05/11/19 History [Advair Diskus] diltiazem HCl 180 mg PO DAILY 05/19/18 05/11/19 History escitalopram oxalate 20 mg PO DAILY 05/19/18 05/11/19 History ipratropium-albuterol [Combivent 1 puff INHALATION QID 05/19/18 05/11/19 History Respimat] metoprolol succinate 50 mg PO DAILY 05/19/18 05/11/19 History ondansetron HCl [Zofran] 4 mg PO Q6H PRN 05/19/18 05/11/19 History ibuprofen 200 mg tablet 200 mg PO Q6H PRN #30 tab 12/09/18 05/11/19 Rx insulin glargine 100 unit/mL (3 See Rx Instructions SUBCUT BID ml 12/09/18 05/11/19 History mL) subcutaneous pen ranitidine HCl 150 mg tablet 150 mg PO BID PRN #60 tab 12/09/18 05/11/19 Rx chlorthalidone 25 mg tablet 25 mg PO DAILY #90 tab 01/07/19 05/11/19 History apixaban 2.5 mg tablet 2.5 mg PO BID tab 03/26/19 05/11/19 History ketoconazole 2 % topical cream 1 applic TOPICAL BID PRN 03/26/19 05/11/19 History Patient History Medical History AF (paroxysmal atrial fibrillation) (Chronic) Anticoagulated (Chronic) Aortic valve disorder (Chronic) Asthma (Chronic) Biventricular ICD (implantable cardioverter-defibrillator) in place (Chronic) Cardiomyopathy (Resolved 07/12/11) CHF (congestive heart failure), NYHA class III (Chronic) Chronic kidney disease, stage 4 (severe) (Chronic) COPD with acute exacerbation (Resolved) Coronary artery disease (Chronic 11/23/10) CVA (cerebral vascular accident) (Resolved 11/23/10) Depression (Chronic) Diabetes Diabetes mellitus type 2 in nonobese (Chronic 11/23/10) History of - coronary artery bypass grafting (Resolved 11/23/10) Hyperlipidemia (Chronic 11/23/10) Hypertension (Chronic) 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 She has not been weighing herself recently. She has not report any increasing abdominal girth. No sense of palpitation. Physical Exam Physical Exam: She is alert and oriented x3. Mood affect appear normal. She answered all questions appropriately. Obese HEENT: Sclerae are anicteric. Pupils are equal and reactive to light and accommodation. Extraocular movements were intact. Neuro: Cranial nerves intact Neck: Examination of the submandibular region did not reveal any significant lymphadenopathy. Carotids are palpable bilaterally and free of bruits on auscultation. There was no evidence of jugular venous distention although she has redundant tissue in the neck. The thyroid was not enlarged. Lungs: Lungs are clear to auscultation bilaterally. There are no rales or rhonchi. Occasional expiratory wheeze. She has normal respiratory effort without use of accessory muscles. There is normal pulmonary excursion. Cardiac: The rhythm was regular with frequent ectopy. S1 and S2 were normal. Crescendo systolic murmur. The PMI was not markedly displaced on palpation. Abdomen: The abdomen was soft and nontender. Obese. Extremities: Patient has bilateral radial pulses that are equal in intensity. There is no evidence cyanosis or clubbing. Mild lower extremity edema with the left greater than the right. Skin: There are no rashes noted on examination today. Results & Data Vital Signs (Past 12 Hours) Vital Signs Temp Pulse Pulse Pulse Resp BP BP 05/11/19 16:28 36.3 C L 76 20 106/70 05/11/19 15:00 80 05/11/19 13:12 96 H 20 05/11/19 11:57 85 26 H 123/87 05/11/19 11:30 83 25 H 108/84 05/11/19 10:30 91 H 26 H 126/90 05/11/19 10:00 82 26 H 126/84 05/11/19 09:19 85 26 H 05/11/19 09:18 05/11/19 08:48 36.9 C 103 H 22 115/81 Pulse Ox 05/11/19 16:28 90 05/11/19 15:00 05/11/19 13:12 98 05/11/19 11:57 95 12/31/19 11:30 96 05/11/19 10:30 96 05/11/19 10:00 96 05/11/19 09:19 94 05/11/19 09:18 88 L 05/11/19 08:48 91 Laboratory Results Abnormal Lab Results 05/11/19 05/11/19 05/11/19 09:05 09:05 12:31 WBC 8.05 RBC 4.77 Hgb 13.4 Hct 41.8 MCV 87.6 MCH 28.1 MCHC 32.1 RDW Std Deviation 51.0 H RDW Coeff of Chriss 16.0 H Plt Count 175 MPV 9.5 Immature Gran % (Auto) 0.4 Neut % (Auto) 80.3 Lymph % (Auto) 12.0 [place] % (Auto) 5.3 Eos % (Auto) 1.9 Baso % (Auto) 0.1 Immature Gran # (Auto) 0.03 H Neut # (Auto) 6.46 Lymph # (Auto) 0.97 L [place] # (Auto) 0.43 Eos # (Auto) 0.15 Baso # (Auto) 0.01 Sodium 140 Potassium 4.1 Chloride 110 H Carbon Dioxide 23 Anion Gap 7.0 BUN 25 H Creatinine 1.91 H Est Cr Clr Drug Dosing Not Reportable Est GFR ( Amer) 29.2 Est GFR (Non-Af Amer) 25.2 BUN/Creatinine Ratio 12.9 Glucose 201 H POC Glucose Calcium 9.5 Phosphorus 2.6 Magnesium 2.0 Total Bilirubin 1.0 AST 27 ALT 34 Alkaline Phosphatase 107 Troponin I 0.067 H* NT-Pro-B Natriuret Pep 7195 H Total Protein 6.5 Albumin 3.3 L Globulin 3.2 Albumin/Globulin Ratio 1.0 Lipase 141 TSH 1.990 05/11/19 05/11/19 12:54 16:26 WBC RBC Hgb Hct MCV MCH MCHC RDW Std Deviation RDW Coeff of Chirss Plt Count MPV Immature Gran % (Auto) Neut % (Auto) Lymph % (Auto) [place] % (Auto) Eos % (Auto) Baso % (Auto) Immature Gran # (Auto) Neut # (Auto) Lymph # (Auto) [place] # (Auto) Eos # (Auto) Baso # (Auto) Sodium Potassium Chloride Carbon Dioxide Anion Gap BUN Creatinine Est Cr Clr Drug Dosing Est GFR ( Amer) Est GFR (Non-Af Amer) BUN/Creatinine Ratio Glucose POC Glucose 246 H 142 H Calcium Phosphorus Magnesium Total Bilirubin AST ALT Alkaline Phosphatase Troponin I NT-Pro-B Natriuret Pep Total Protein Albumin Globulin Albumin/Globulin Ratio Lipase TSH Diagnostic Findings Chest x-ray demonstrated cardiomegaly and mild pulmonary vascular congestion Limited echocardiogram performed today revealed normal function of the bioprosthetic valve and reduced LV systolic function consistent with old examinations. Performed a complete device interrogation including threshold testing. Normal device longevity. Normal function with low pacing percentage in the ventricle. ECG Additional Comments: Atrial sensed V paced rhythm with occasional atrial ectopy and [place] ventricular conduction. Wide complex rhythm is actually [place] conduction. This is not ventricular tachycardia or PVCs. PG Care Time/CCT Total # of Minutes Spent Total Time Spent with Patient: Total time spent is greater than 50% in coordination of care (as documented) at patient's floor/unit and/or counseling patient: (1) Coronary artery disease Coronary Disease-Associated Artery/Lesion type: [place] artery [place] vs. transplanted heart: [place] heart Associated angina: without angina Qualified Code(s): I25.10 - Atherosclerotic heart disease of [place] coronary artery without angina pectoris
[2019-05-11] MEDS: APIXABAN 5 MG TABLET PO SCH (20:12)
[2019-05-11] MEDS: INSULIN GLARGINE SOLOSTAR 100 UNITS/ML 3 ML PEN SC SCH (20:14)
[2019-05-12] MEDS: ALBUT/IPRATROP 3MG/0.5MG NEB 3 ML VIAL NEB SCH ×4 (00:10→19:46)
[2019-05-12 06:39] LABS: Basophils # (auto) 0.01 K/uL (0-0.2); Basophils % (auto) 0.1 %; Eosinophils # (auto) 0.03 K/uL (0-0.5); Eosinophils % (auto) 0.3 %; Hematocrit (blood only) 40.1 % (37-47); Hemoglobin 12.9 g/dL (12.0-16.0); Immature Granulocytes # (auto) 0.02 K/uL (0.00-0.02); Immature Granulocytes % (auto) 0.2 %; Lymphocytes # (auto) 1.02 K/uL (1.2-3.4); Lymphocytes % (auto) 10.3 %; Mean Corpuscular Hemoglobin 28.4 pg (25-34); Mean Corpuscular Hgb Conc 32.2 g/dL (32-36); Mean Corpuscular Volume 88.3 fL (80-100); Monocytes # (auto) 0.75 K/uL (0.11-0.59); Monocytes % (auto) 7.6 %; Neutrophils # (auto) 8.08 K/uL (1.4-6.5); Neutrophils % (auto) 81.5 %; Platelet Count 187 K/uL (130-400); RDW Standard Deviation 50.8 fL (36.4-46.3); Red Blood Count 4.54 M/uL (4.2-5.4); White Blood Count 9.91 K/uL (4.8-10.8)
[2019-05-12 07:06] LABS: BUN Creatinine Ratio 17.2 (10-20); Calcium 9.4 mg/dl (8.5-10.1); Creatinine Clr Calc Pharmacy 22.7 ml/min; Est GFR (African American) 23.3; Est GFR (Non-African American) 20.1; Potassium 3.9 mmol/L (3.5-5.1)
[2019-05-12] MEDS: FLUTICASONE/SALMETEROL (ADVAIR) 500/50 INH 14 PUFF INH SCH ×2 (08:22→21:20)
[2019-05-12] MEDS: INSULIN ASPART 100 UNITS/ML 3 ML PEN SC SCH ×4 (08:22→21:26)
[2019-05-12] MEDS: FUROSEMIDE 40 MG TAB PO SCH (08:22)
[2019-05-12] MEDS: carvediloL 25 MG TAB PO SCH ×2 (08:22→21:21)
[2019-05-12] MEDS: dilTIAZem ER 180 MG CAPCR PO SCH (08:22)
[2019-05-12] MEDS: ATORVASTATIN 40 MG TAB PO SCH (08:22)
[2019-05-12] MEDS: APIXABAN 5 MG TABLET PO SCH (08:22)
[2019-05-12] MEDS: INSULIN GLARGINE SOLOSTAR 100 UNITS/ML 3 ML PEN SC SCH ×2 (08:22→21:24)
[2019-05-12] MEDS: ESCITALOPRAM OXALATE 20 MG TAB PO SCH (08:22)
[2019-05-12] MEDS: METOPROLOL SUCC 50MG EXT REL TAB PO SCH (08:22)
[2019-05-12] MEDS: ASCORBIC ACID 500 MG TAB PO SCH ×2 (08:22→21:21)
--- NOTE | 2019-05-12 09:50 | Cardiology Progress Note ---
Date of Service May 12, 2019 Assessment & Plan (1) V-tach: No recurrence. Continue beta-blockers. (2) Elevated troponin: Most likely indicative of chronic heart failure. Not indicative of an acute coronary syndrome. (3) Shortness of breath: Breathing is better. She likely did have some diuresis yesterday which is reflective both in improvement in her symptoms as well as a change in her renal function. I would continue her on her usual outpatient dose of furosemide. She may also suffer from an element of pulmonary disease. Need to monitor her cough. Continue nebulizers. (4) AF (paroxysmal atrial fibrillation): Continue in sinus rhythm. Undoubtedly she will return to atrial fibrillation given her history and left atrial size. I do not think she had good rate control in the past. She is on an unusual regimen for rate control to include carvedilol, metoprolol and diltiazem. I think a better option would be AV node ablation. I did discuss the procedure with the patient and we will plan on proceeding tomorrow. This would control her ventricular rates, allow for 100 percent biventricular pacing and obviate the need for certain medications such as diltiazem. Apixaban dose increased. (5) Biventricular ICD (implantable cardioverter-defibrillator) in place: Normal function. Pacing less than 90 percent. This is due to permanent atrial fibrillation. Plan AV node ablation. (6) Cardiomyopathy: Longstanding and nonischemic. Present prior to her dissection, valve replacement and bypass. He has been maintained primarily on beta-blockade due to orthostatic symptoms with lisinopril. (7) Coronary artery disease: She underwent single-vessel bypass at the time of her valve replacement several years ago. No current symptoms suggestive of coronary insufficiency or ischemia. Continue on beta-blockade, high-dose atorvastatin and apixaban Subjective This morning the patient complained of a productive cough. She reported coughing up some yellow phlegm. Overall she states her breathing is much better. She was lying flat in felt comfortable. She had been up in a chair earlier. She denies any symptoms of chest pain or dizziness. Review of Systems Review of Systems: Per HPI Physical Exam Physical Exam: She is alert and oriented x3. Mood affect appear normal. She answered all questions appropriately. Obese HEENT: Sclerae are anicteric. Pupils are equal and reactive to light and accommodation. Extraocular movements were intact. Neuro: Cranial nerves intact Lungs: Lungs are clear to auscultation bilaterally. There are no rales or rhonchi. Occasional expiratory wheeze. She has normal respiratory effort without use of accessory muscles. There is normal pulmonary excursion. Cardiac: The rhythm was regular. S1 and S2 were normal. Crescendo systolic murmur. The PMI was not markedly displaced on palpation. Abdomen: The abdomen was soft and nontender. Obese. Extremities: Patient has bilateral radial pulses that are equal in intensity. There is no evidence cyanosis or clubbing. Mild lower extremity edema with the left greater than the right. Skin: There are no rashes noted on examination today. Results & Data Vital Signs (Past 12 Hours) Vital Signs Temp Pulse Pulse Resp BP BP Pulse Ox 05/12/19 07:49 67 05/12/19 07: 36.6 C 64 20 116/80 98 05/12/19 07:18 79 18 97 05/12/19 03:20 36.4 C L 87 20 127/74 97 05/12/19 00:11 60 16 97 05/11/19 23:41 60 05/11/19 23:40 36.3 C L 61 20 118/74 95 Laboratory Results Abnormal Lab Results 05/11/19 05/11/19 05/11/19 09:05 12:31 12:54 WBC RBC Hgb Hct MCV MCH MCHC RDW Std Deviation RDW Coeff of Chriss Plt Count MPV Immature Gran % (Auto) Neut % (Auto) Lymph % (Auto) [place] % (Auto) Eos % (Auto) Baso % (Auto) Immature Gran # (Auto) Neut # (Auto) Lymph # (Auto) [place] # (Auto) Eos # (Auto) Baso # (Auto) Sodium Potassium Chloride Carbon Dioxide Anion Gap BUN Creatinine Est Cr Clr Drug Dosing Est GFR ( Amer) Est GFR (Non-Af Amer) BUN/Creatinine Ratio Glucose POC Glucose 246 H Calcium Phosphorus 2.6 Magnesium 2.0 Troponin I 0.067 H* NT-Pro-B Natriuret Pep 7195 H TSH 1.990 05/11/19 05/11/19 05/11/19 16:26 17:30 19:52 WBC RBC Hgb Hct MCV MCH MCHC RDW Std Deviation RDW Coeff of Chriss Plt Count MPV Immature Gran % (Auto) Neut % (Auto) Lymph % (Auto) [place] % (Auto) Eos % (Auto) Baso % (Auto) Immature Gran # (Auto) Neut # (Auto) Lymph # (Auto) [place] # (Auto) Eos # (Auto) Baso # (Auto) Sodium Potassium Chloride Carbon Dioxide Anion Gap BUN Creatinine Est Cr Clr Drug Dosing Est GFR ( Amer) Est GFR (Non-Af Amer) BUN/Creatinine Ratio Glucose POC Glucose 142 H 155 H Calcium Phosphorus Magnesium Troponin I 0.100 H* NT-Pro-B Natriuret Pep [facility] 05/12/19 05/12/19 05/12/19 01:02 06:07 06:07 WBC 9.91 RBC 4.54 Hgb 12.9 Hct 40.1 MCV 88.3 MCH 28.4 MCHC 32.2 RDW Std Deviation 50.8 H RDW Coeff of Chriss 16.0 H Plt Count 187 MPV 10.0 Immature Gran % (Auto) 0.2 Neut % (Auto) 81.5 Lymph % (Auto) 10.3 [place] % (Auto) 7.6 Eos % (Auto) 0.3 Baso % (Auto) 0.1 Immature Gran # (Auto) 0.02 Neut # (Auto) 8.08 H Lymph # (Auto) 1.02 L [place] # (Auto) 0.75 H Eos # (Auto) 0.03 Baso # (Auto) 0.01 Sodium 137 Potassium 3.9 Chloride 106 Carbon Dioxide 26 Anion Gap 5.0 BUN 40 H D Creatinine 2.30 H D Est Cr Clr Drug Dosing 22.7 Est GFR ( Amer) 23.3 Est GFR (Non-Af Amer) 20.1 BUN/Creatinine Ratio 17.2 Glucose 109 H POC Glucose Calcium 9.4 Phosphorus Magnesium Troponin I 0.096 H* NT-Pro-B Natriuret Pep [facility] 05/12/19 07:47 WBC RBC Hgb Hct MCV MCH MCHC RDW Std Deviation RDW Coeff of Chriss Plt Count MPV Immature Gran % (Auto) Neut % (Auto) Lymph % (Auto) [place] % (Auto) Eos % (Auto) Baso % (Auto) Immature Gran # (Auto) Neut # (Auto) Lymph # (Auto) [place] # (Auto) Eos # (Auto) Baso # (Auto) Sodium Potassium Chloride Carbon Dioxide Anion Gap BUN Creatinine Est Cr Clr Drug Dosing Est GFR ( Amer) Est GFR (Non-Af Amer) BUN/Creatinine Ratio Glucose POC Glucose 131 H Calcium Phosphorus Magnesium Troponin I NT-Pro-B Natriuret Pep TSH PG Care Time/CCT Total # of Minutes Spent Total Time Spent with Patient: Total time spent is greater than 50% in coordination of care (as documented) at patient's floor/unit and/or counseling patient: (1) Coronary artery disease Coronary Disease-Associated Artery/Lesion type: [place] artery [place] vs. transplanted heart: [place] heart Associated angina: without angina Qualified Code(s): I25.10 - Atherosclerotic heart disease of [place] coronary artery without angina pectoris
--- NOTE | 2019-05-12 17:52 | Hospitalist Progress Note ---
Date of Service May 12, 2019 Assessment & Plan (1) Biventricular ICD (implantable cardioverter-defibrillator) in place: ICD firedevents around this/the interrogation of the device well outlined by cardiology. More than likely decompensation of her chronic systolic CHF (otherwise known as HFrEF) likely the proximal culprit for the arrhythmias. Further management otherwise per cardiology. (2) V-tach: As above (3) Elevated troponin: Mildly elevated troponin after AICD discharge, expected lab value. Patient denies chest pain/palpitations. No EKG ischemic changes Continue home cardiac meds -Trend troponin (4) CHF (congestive heart failure), NYHA class III: Acute on chronic systolic CHF present on admissionnow improved, examines euvolemic, rising creatinine suggest that she is dry. Hold Lasix for now. Diet history reveals that she takes in a rather heavy amount of accidental sodium ingestion, especially given that this was just on a diet recall and more than likely underestimated her intake. We did extensive discussion on how her kidneys will hold onto water commiserate with the amount of sodium presented to themshe expressed very good understanding of this. Will consult dietitian to further her education, we also discussed and reviewed food labels together for tomato soup and potato chips. She seemed to learn this fairly quickly. I discussed with her that if she stays under 1500 to may be 2000 mg of sodium per day, she will likely be far less brittle with her CHF. Follow fluid management day-to-day follow BMP Hopefully whenever it clears she is euvolemic we can give a trial of Entresto. (5) Chronic kidney disease, stage 4 (severe): Creatinine ema after diuresishold Lasix for now, follow-up basic metabolic panel tomorrow. Hopefully we can get reasonable creatinine balance to start Entresto. (6) Eczema: Patient reports dry itchy skin on her posterior left arm. No bleeding or evidence of secondary infection Eucerin every 4 hours as needed (7) AF (paroxysmal atrial fibrillation): Rate controlled, anticoagulated (8) Aortic valve disorder: Status post bioprosthetic aortic valve placement. Echocardiogram noted Cardiology consultation as above (9) Coronary artery disease: Continue med management and secondary risk reduction, troponin almost certainly from ICD firing, not [place]. (10) Depression: Chronic. Stable. Continue escitalopram (11) Hyperlipidemia: Chronic. Stable. Continue atorvastatin (12) Hypertension: Chronic. Stable. Continue chlorthalidone Continue carvedilol, metoprolol, diltiazem Continue to monitor blood pressureshowing reasonable control here (13) Obstructive sleep apnea: Chronic. Patient is unable to wear mask at home secondary to claustrophobia-would benefit from working with home health supplier on other masks such as a nasal pillow. Given the extensiveness that we discussed sodium intake and CHF, I was not able to discuss the critical importance of DIAMOND and how it relates to CHF today. (14) Vitamin D deficiency: Vitamin D supplementation (15) Diabetes: Sugars have been reasonable thus far, continue current insulin management. A1c pending. Given how receptive she was about diet control for her sodium intake/CHF likely if her A1c is elevated a similar discussion as it relates to the critical importance of lifestyle in the control of type 2 diabetes will be met well. (16) DVT prophylaxis: Anticoagulated (17) Discharge planning issues: Comes from home, further cardiac work-up/testing/interventions to be done as above, PT/OT eval and treat, hopefully she will be able to go back home. Subjective Feeling better. Breathing better. Cardiology input noted. In discussions of her dietshe takes in a decent amount of sodium that she was unaware ofmost notably soup, potato chips (albeit lower sodium potato chips), prater, hamand that was just on simple diet recall. She notes that she does not particularly like to take the Lasix because she pees all the time with it. She also notes incidentally that for about a week she was throwing up pretty frequently at lunchtimeeven with a little bit of blood at 1 or 2 episodes. None since she has been in the hospital. During that time she first got sick with vomiting and diarrhea. The diarrhea went away, the vomiting persisted, and now she seems to be doing better. Otherwise no acute problems and no other complaints. Review of Systems Review of Systems: All systems reviewed & are unremarkable except as noted in HPI & below Physical Exam Physical Exam: In general she is awake and alert pleasant no distress. HEENT normocephalic atraumatic mucous membranes are moist. Lungs are clear to auscultation bilaterally no rales rhonchi or wheezes with good effort. Cardio is regular. No rubs murmurs or gallops noted. Abdomen is soft nondistended nontender she does have a mild degree of epigastric tenderness no guarding, rebound, or rigidity. Extremities show no cyanosis. Skin shows no rashes no pallor or icterus. Cranial nerves II through XII are grossly intact and she shows no focal motor or sensory deficits grossly. Mental status shows good recent and remote recall normal mood and affect good judgment and insight. Results & Data Vital Signs (Past 12 Hours) Vital Signs Temp Pulse Pulse Resp BP Pulse Ox 05/12/19 15:53 97.3 F L 60 22 100/68 96 05/12/19 15:19 62 05/12/19 14:07 61 16 92 05/12/19 11:43 97.5 F L 64 20 96/65 L 95 05/12/19 07:49 67 05/12/19 07:19 97.9 F 64 20 116/80 98 05/12/19 07:18 79 18 97 PG Care Time/CCT Total # of Minutes Spent Total Time Spent with Patient: Total time spent is greater than 50% in coordination of care (as documented) at patient's floor/unit and/or counseling patient: (1) CHF (congestive heart failure), NYHA class III Congestive heart failure type: systolic Congestive heart failure chronicity: acute on chronic Qualified Code(s): I50.23 - Acute on chronic systolic (congestive) heart failure (2) Coronary artery disease Coronary Disease-Associated Artery/Lesion type: [place] artery [place] vs. transplanted heart: [place] heart Associated angina: without angina Qualified Code(s): I25.10 - Atherosclerotic heart disease of [place] coronary artery without angina pectoris (3) Depression Depression Type: major depressive disorder Major depression recurrence: recurrent Active/Remission status: remission status unspecified Qualified Code(s): F33.9 - Major depressive disorder, recurrent, unspecified (4) Hyperlipidemia Hyperlipidemia type: unspecified Qualified Code(s): E78.5 - Hyperlipidemia, unspecified (5) Hypertension Hypertension type: essential hypertension Qualified Code(s): I10 - Essential (primary) hypertension (6) Diabetes Diabetes mellitus type: type 2 Diabetes mellitus retirement insulin use: with exterminator use Diabetes mellitus complication status: without complication Qualified Code(s): E11.9 - Type 2 diabetes mellitus without complications; Z79.4 - watermelon inspector (current) use of insulin
[2019-05-12] MEDS: FAMOTIDINE 20 MG TAB PO SCH (21:26)
[2019-05-13] MEDS: ALBUT/IPRATROP 3MG/0.5MG NEB 3 ML VIAL NEB SCH ×2 (01:11→07:03)
[2019-05-13 05:59] LABS: Estimated Average Glucose 160 mg/dl; Hemoglobin A1C 7.2 % (4.5-5.6)
[2019-05-13 07:09] LABS: BUN Creatinine Ratio 16.9 (10-20); Calcium 9.1 mg/dl (8.5-10.1); Creatinine Clr Calc Pharmacy 19.6 ml/min; Est GFR (African American) 19.7
[2019-05-13] MEDS: INSULIN ASPART 100 UNITS/ML 3 ML PEN SC SCH ×4 (08:11→20:27)
[2019-05-13] MEDS: INSULIN GLARGINE SOLOSTAR 100 UNITS/ML 3 ML PEN SC SCH ×2 (08:12→20:23)
[2019-05-13] MEDS: FLUTICASONE/SALMETEROL (ADVAIR) 500/50 INH 14 PUFF INH SCH ×2 (08:18→20:23)
[2019-05-13] MEDS: FAMOTIDINE 20 MG TAB PO SCH ×2 (08:19→20:27)
[2019-05-13] MEDS: ESCITALOPRAM OXALATE 20 MG TAB PO SCH (08:19)
[2019-05-13] MEDS: ATORVASTATIN 40 MG TAB PO SCH (08:19)
[2019-05-13] MEDS: ASCORBIC ACID 500 MG TAB PO SCH ×2 (08:20→20:23)
[2019-05-13] MEDS: METOPROLOL SUCC 50MG EXT REL TAB PO SCH (08:26)
[2019-05-13] MEDS: dilTIAZem ER 180 MG CAPCR PO SCH (08:26)
[2019-05-13] MEDS: carvediloL 25 MG TAB PO SCH ×2 (08:26→20:23)
[2019-05-13] MEDS ORDERED: MIDAZOLAM HCL 5 MG/ML 1 ML VIAL ONE (10:35)
[2019-05-13] MEDS ORDERED: fentaNYL citrate 100 MCG/2 ML VIAL ONE (10:36)
[2019-05-13] MEDS ORDERED: HEPARIN (PORCINE) 1000 UNIT/ML 10 ML (CATH LAB USE ONLY) ONE (10:40)
--- NOTE | 2019-05-13 10:44 | Pre Anesthesia Assessment ---
Date of Service May 13, 2019 Pre Sedation Assessment Vital Signs Temp Pulse Pulse Pulse Resp BP BP 05/13/19 10:05 64 18 140/87 05/13/19 07:23 36.5 C 61 16 109/68 05/13/19 07:04 77 18 05/13/19 04:00 36.5 C 58 L 20 109/66 05/13/19 01:12 74 20 05/13/19 01:00 62 05/13/19 00:00 36.5 C 63 18 125/79 05/12/19 20:24 36.5 C 64 22 117/58 L 05/12/19 19:48 57 L 22 05/12/19 15:53 36.3 C L 60 22 100/68 05/12/19 15:19 62 05/12/19 14:07 61 16 05/12/19 11:43 36.4 C L 64 20 96/65 L Pulse Ox 05/13/19 10:05 93 05/13/19 07:23 94 05/13/19 07:04 96 05/13/19 04:00 99 05/13/19 01:12 95 05/13/19 01:00 05/13/19 00:00 97 05/12/19 20:24 97 05/12/19 19:48 97 05/12/19 15:53 96 05/12/19 15:19 05/12/19 14:07 92 05/12/19 11:43 95 Cardiovascular + regular rate Respiratory + respiratory effort normal Pre-Sedation Airway Assessment Smoking Status: Never smoker Hx Sleep Apnea: Yes Hx Difficult Intubation: No Short, Thick Neck: No Thyromental Distance: > or= 3.5 Finger Breadths Oral Cavity: + WNL Mallampati Class: III ASA: ASA3 NPO Status Date of Last Intake of Fluids: 05/12/19 Time of Last Intake of Fluids: 21:00 Date of Last Intake of Solid Food: 05/12/19 Time of Last Intake of Solid Foods: 21:00 Procedure Planning Contraindications for Sedation: none Current Medications Reviewed: Yes Notes The planned sedation has been discussed with the patient. Informed Consent was obtained. I have identified the patient, determined the appropriateness of sedation and have assessed the patient immediately prior to the procedure. All medicine(s) and interventions are by my order.
--- NOTE | 2019-05-13 12:29 | Electrophysiology Report ---
Date of Service May 13, 2019 Electrophysiology Procedure Electrophysiology Procedure Report Procedure performed: Attempted ablation of AV node Staff small business sales representative: Pedro Li MD Indication: The patient is a 73-year-old woman with a history of atrial fibrillation and a nonischemic cardiomyopathy. She had previously undergone implantation of a biventricular ICD. She was noted to have atrial fibrillation and high ventricular rates and a low pacing percentage on her device interrogation. She is felt to be a good candidate for AV node ablation. Procedure in detail: The patient was informed of the risk benefits and alternatives to the intended procedure. She understood and wished to proceed. She was taken to the electrophysiology suite in a fasting state. Conscious sedation was administered per protocol and the patient was monitored electrocardiographically throughout today's procedure. The right femoral area was prepped and draped in usual sterile fashion. This area was anesthetized using subcutaneous ministration of lidocaine solution. The right femoral vein was then accessed using modified Seldinger technique and an 8 British venous sheath was placed at the site over a guidewire. This sheath was used to felt a passage of the EP catheter to the r ight atrium under fluoroscopic guidance. Radiofrequency lesions were then placed in an attempt to eliminate AV conduction. He had inclusion of the procedure the catheter and sheath were removed. Hemostasis was achieved at the access site using manual pressure. The patient tolerated the procedure well. There were no immediate complications. Ablation: An 8 British irrigated 3.5 mm radiofrequency ablation catheter was employed for both focal and linear lesions on the septal aspect of the right atrium. There was transient heart block but permanent heart block could not be achieved. Impression: Unsuccessful ablation of the AV node [facility] Electrophysiology codes EP Procedure 1: Electrophysiology: 48602 Ablation AV Node w/wo pace
[2019-05-13] MEDS: IPRATROPIUM BROMIDE/ALBUTEROL respimat INH INH SCH ×3 (13:26→23:25)
--- NOTE | 2019-05-13 16:48 | Cardiology Progress Note ---
Date of Service May 13, 2019 Assessment & Plan (1) V-tach: No recurrence. Continue beta-blockers. (2) Elevated troponin: Most likely indicative of chronic heart failure. Not indicative of an acute coronary syndrome. (3) Shortness of breath: Breathing is better. She has returned her daily dose of furosemide. This appears adequate. She is lying flat in bed without significant breathing difficulty. (4) AF (paroxysmal atrial fibrillation): Continue in sinus rhythm. We attempted AV node ablation today. We did achieve transient AV block but her conduction eventually returned. We aborted the procedure. Will continue her biventricular pacing. Currently in a sinus rhythm which is advanced age despite do suspect she will return atrial fibrillation and will need to readdress this issue on an outpatient basis. Apixaban dose increased. (5) Biventricular ICD (implantable cardioverter-defibrillator) in place: Normal function. Pacing less than 90 percent. This is due to permanent atrial fibrillation. Plan AV node ablation. (6) Cardiomyopathy: Longstanding and nonischemic. Present prior to her dissection, valve replacement and bypass. He has been maintained primarily on beta-blockade due to orthostatic symptoms with lisinopril. (7) Coronary artery disease: She underwent single-vessel bypass at the time of her valve replacement several years ago. No current symptoms suggestive of coronary insufficiency or ischemia. Continue on beta-blockade, high-dose atorvastatin and apixaban Subjective She reports feeling well today. She has been tolerating her diet. Her breathing does not seem to be compromised. No symptoms of chest discomfort. Review of Systems Review of Systems: Per HPI Physical Exam Physical Exam: She is alert and oriented x3. Mood affect appear normal. She answered all questions appropriately. Obese HEENT: Sclerae are anicteric. Pupils are equal and reactive to light and accommodation. Extraocular movements were intact. Neuro: Cranial nerves intact Lungs: Lungs are clear to auscultation bilaterally. There are no rales or rhonchi. Occasional expiratory wheeze. She has normal respiratory effort without use of accessory muscles. There is normal pulmonary excursion. Cardiac: The rhythm was regular. S1 and S2 were normal. Crescendo systolic murmur. The PMI was not markedly displaced on palpation. Abdomen: The abdomen was soft and nontender. Obese. Extremities: Patient has bilateral radial pulses that are equal in intensity. There is no evidence cyanosis or clubbing. Mild lower extremity edema with the left greater than the right. Examination of the right groin access site did not reveal any evidence of hematoma or bleeding. Skin: There are no rashes noted on examination today. Results & Data Vital Signs (Past 12 Hours) Vital Signs Temp Pulse Pulse Pulse Resp BP Pulse Ox 05/13/19 16:30 36.6 C 61 22 103/71 96 05/13/19 15:26 82 05/13/19 14:10 88 18 113/78 94 05/13/19 13:40 36.8 C 89 18 110/71 94 05/13/19 13:30 84 05/13/19 13:10 36.8 C 88 18 105/70 94 05/13/19 12:55 90 18 105/91 92 05/13/19 12:50 90 18 135/98 95 05/13/19 12:45 90 18 144/88 H 96 05/13/19 12:40 89 18 120/93 96 05/13/19 10:05 64 18 140/87 93 05/13/19 07:23 36.5 C 61 16 109/68 94 05/13/19 07:04 77 18 96 Laboratory Results Abnormal Lab Results 05/12/19 05/12/19 05/12/19 06:07 16:30 20:19 Sodium Potassium Chloride Carbon Dioxide Anion Gap BUN Creatinine Est Cr Clr Drug Dosing Est GFR ( Amer) Est GFR (Non-Af Amer) BUN/Creatinine Ratio Glucose POC Glucose 99 158 H Estimat Average Glucose 160 Hemoglobin A1c 7.2 H Calcium 05/13/19 05/13/19 05/13/19 05:55 07:30 13:23 Sodium 137 Potassium 4.0 Chloride 105 Carbon Dioxide 26 Anion Gap 6.0 BUN 45 H Creatinine 2.64 H D Est Cr Clr Drug Dosing 19.6 Est GFR ( Amer) 19.7 Est GFR (Non-Af Amer) 17.0 BUN/Creatinine Ratio 16.9 Glucose 102 H POC Glucose 106 H 120 H Estimat Average Glucose Hemoglobin A1c Calcium 9.1 05/13/19 16:06 Sodium Potassium Chloride Carbon Dioxide Anion Gap BUN Creatinine Est Cr Clr Drug Dosing Est GFR ( Amer) Est GFR (Non-Af Amer) BUN/Creatinine Ratio Glucose POC Glucose 138 H Estimat Average Glucose Hemoglobin A1c Calcium ECG Additional Comments: Sinus rhythm with biventricular pacing PG Care Time/CCT Total # of Minutes Spent Total Time Spent with Patient: Total time spent is greater than 50% in coordination of care (as documented) at patient's floor/unit and/or counseling patient: (1) Coronary artery disease Coronary Disease-Associated Artery/Lesion type: [place] artery [place] vs. transplanted heart: [place] heart Associated angina: without angina Qualified Code(s): I25.10 - Atherosclerotic heart disease of [place] coronary artery without angina pectoris
[2019-05-13] MEDS ORDERED: DiphenhydrAMINE HCL 50 MG/ML VIAL IV ONE (22:36)
--- NOTE | 2019-05-13 23:01 | Hospitalist Progress Note ---
Date of Service May 13, 2019 Assessment & Plan (1) Biventricular ICD (implantable cardioverter-defibrillator) in place: ICD firedevents around this/the interrogation of the device well outlined by cardiology. More than likely decompensation of her chronic systolic CHF (otherwise known as HFrEF) likely the proximal culprit for the arrhythmias. Further management otherwise per cardiology. D/W cardio : AV node ablation failed; will monitor for another day, if feeling better will likely discharge in AM. (2) V-tach: As above (3) Elevated troponin: Mildly elevated troponin after AICD discharge, expected lab value. Patient denies chest pain/palpitations. No EKG ischemic changes Continue home cardiac meds -peaked at 0.1, trending down. (4) CHF (congestive heart failure), NYHA class III: Acute on chronic systolic CHF present on admissionnow improved, examines euvolemic, rising creatinine suggest that she is dry. Hold Lasix for now. Diet history reveals that she takes in a rather heavy amount of accidental sodium ingestion, especially given that this was just on a diet recall and more than likely underestimated her intake. We did extensive discussion on how her kidneys will hold onto water commiserate with the amount of sodium presented to themshe expressed very good understanding of this. Will consult dietitian to further her education, we also discussed and reviewed food labels together for tomato soup and potato chips. She seemed to learn this fairly quickly. I discussed with her that if she stays under 1500 to may be 2000 mg of sodium per day, she will likely be far less brittle with her CHF. Follow fluid management day-to-day Kindey numbers worsened over course of past 24 hours, likely from diuresis, furosemide has been on hold. Hopefully whenever it clears she is euvolemic we can give a trial of Entresto. (5) Chronic kidney disease, stage 4 (severe): Creatinine ema after diuresishold Lasix for now, follow-up basic metabolic panel. Creatinine is still elevated. Continue to hold entresto for now. (6) Eczema: Patient reports dry itchy skin on her posterior left arm. No bleeding or evidence of secondary infection Eucerin every 4 hours as needed (7) AF (paroxysmal atrial fibrillation): Rate controlled, anticoagulated (8) Aortic valve disorder: Status post bioprosthetic aortic valve placement. Echocardiogram noted Cardiology consultation as above (9) Coronary artery disease: Continue med management and secondary risk reduction, troponin almost certainly from ICD firing, not [place]. (10) Depression: Chronic. Stable. Continue escitalopram (11) Hyperlipidemia: Chronic. Stable. Continue atorvastatin (12) Hypertension: Chronic. Stable. Continue chlorthalidone Continue carvedilol, metoprolol, diltiazem Continue to monitor blood pressureshowing reasonable control here (13) Obstructive sleep apnea: Chronic. Patient is unable to wear mask at home secondary to claustrophobia-would benefit from working with home health supplier on other masks such as a nasal pillow. Given the extensiveness that we discussed sodium intake and CHF, I was not able to discuss the critical importance of DIAMOND and how it relates to CHF today. (14) Vitamin D deficiency: Vitamin D supplementation (15) Diabetes: Sugars have been reasonable thus far, continue current insulin management. A1c pending. Given how receptive she was about diet control for her sodium intake/CHF likely if her A1c is elevated a similar discussion as it relates to the critical importance of lifestyle in the control of type 2 diabetes will be met well. (16) DVT prophylaxis: Anticoagulated (17) Discharge planning issues: Comes from home, further cardiac work-up/testing/interventions to be done as above, PT/OT eval and treat, hopefully she will be able to go back home. Subjective 73 yo female reports feeling better. She denies any SOB at rest, however, she has not ambulated much today to check if she is ambulating well. Review of Systems Review of Systems: All systems reviewed & are unremarkable except as noted in HPI & below Physical Exam Physical Exam: General: Obese female patient resting comfortably, NAD, non- toxic in appearance, AA&O x 4 Skin: warm, dry, intact, erythema on posterior left arm, dry skin, areas of excoriation on posterior neck HEENT: NC/AT, PERRL, EOMI, no JVD noted. eart: +S1/S2, regular with occasional ectopy, no m/r/g Lungs: equal air entry bilaterally, diminished breath sounds in bases bilaterally, patient continues to have wheezing bilaterally Abd: +BS, soft, NT/ND, no masses/organomegaly/ascites Ext: warm, 2+ pulses in UE/LE bilaterally, no clubbing/cyanosis or edema Neuro: nonfocal, patient AA&O x 4, speech intact, no facial droop, moving all extremities on command with equal strength 5/5 Results & Data Vital Signs (Past 12 Hours) Vital Signs Temp Pulse Pulse Pulse Resp BP Pulse Ox 05/13/19 20:30 81 05/13/19 19:03 36.6 C 81 18 115/80 96 05/13/19 16:30 36.6 C 61 22 103/71 96 05/13/19 15:26 82 05/13/19 14:10 88 18 113/78 94 05/13/19 13:40 36.8 C 89 18 110/71 94 05/13/19 13:30 84 05/13/19 13:10 36.8 C 88 18 105/70 94 05/13/19 12:55 90 18 105/91 92 05/13/19 12:50 90 18 135/98 95 05/13/19 12:45 90 18 144/88 H 96 05/13/19 12:40 89 18 120/93 96 PG Care Time/CCT Total # of Minutes Spent Total Time Spent with Patient: Total time spent is greater than 50% in coordination of care (as documented) at patient's floor/unit and/or counseling patient: (1) CHF (congestive heart failure), NYHA class III Congestive heart failure chronicity: acute on chronic Congestive heart failure type: systolic Qualified Code(s): I50.23 - Acute on chronic systolic (congestive) heart failure (2) Diabetes Diabetes mellitus complication status: without complication Diabetes mellitus assisted insulin use: with assisted use Diabetes mellitus type: type 2 Qualified Code(s): E11.9 - Type 2 diabetes mellitus without complications; Z79.4 - custodial (current) use of insulin (3) Coronary artery disease Associated angina: without angina Coronary Disease-Associated Artery/Lesion type: [place] artery [place] vs. transplanted heart: [place] heart Qualified Code(s): I25.10 - Atherosclerotic heart disease of [place] coronary artery without angina pectoris (4) Depression Active/Remission status: remission status unspecified Depression Type: major depressive disorder Major depression recurrence: recurrent Qualified Code(s): F33.9 - Major depressive disorder, recurrent, unspecified (5) Hyperlipidemia Hyperlipidemia type: unspecified Qualified Code(s): E78.5 - Hyperlipidemia, unspecified (6) Hypertension Hypertension type: essential hypertension Qualified Code(s): I10 - Essential (primary) hypertension
[2019-05-14] MEDS: IPRATROPIUM BROMIDE/ALBUTEROL respimat INH INH SCH ×4 (05:47→23:39)
[2019-05-14] MEDS: INSULIN ASPART 100 UNITS/ML 3 ML PEN SC SCH ×4 (07:44→20:51)
[2019-05-14] MEDS: FLUTICASONE/SALMETEROL (ADVAIR) 500/50 INH 14 PUFF INH SCH ×2 (07:47→21:16)
[2019-05-14] MEDS: carvediloL 25 MG TAB PO SCH ×2 (07:48→21:17)
[2019-05-14] MEDS: FAMOTIDINE 20 MG TAB PO SCH ×2 (07:49→21:18)
[2019-05-14] MEDS: ESCITALOPRAM OXALATE 20 MG TAB PO SCH (07:49)
[2019-05-14] MEDS: METOPROLOL SUCC 50MG EXT REL TAB PO SCH (07:49)
[2019-05-14] MEDS: INSULIN GLARGINE SOLOSTAR 100 UNITS/ML 3 ML PEN SC SCH ×2 (07:50→21:16)
[2019-05-14] MEDS: ASCORBIC ACID 500 MG TAB PO SCH ×2 (07:52→21:18)
[2019-05-14] MEDS: ATORVASTATIN 40 MG TAB PO SCH (07:52)
[2019-05-14] MEDS: dilTIAZem ER 180 MG CAPCR PO SCH (10:42)
--- NOTE | 2019-05-14 15:24 | XRay Report ---
XR chest 1V portable CLINICAL HISTORY: Shortness of breath. COMPARISON STUDY: Chest radiograph May 11, 2019. FINDINGS: Lung volumes are normal. A left subclavian biventricular pacer/AICD is in place. There are median sternotomy wires and mediastinal surgical clips. Cardiomegaly is unchanged. Pulmonary vascular congestion has improved. There is no pneumothorax or pleural effusion. There is no consolidation to suggest pneumonia. IMPRESSION: Interval improvement in pulmonary vascular congestion since exam of May 11, 2019. ACT 112: Negative or not required by law. Electronically signed by: Javier Garza M.D. 05/14/2019 3:22 PM
[2019-05-14 15:31] LABS: BUN Creatinine Ratio 19.2 (10-20); Calcium 9.2 mg/dl (8.5-10.1); Est GFR (African American) 19.9; Est GFR (Non-African American) 17.2; Potassium 4.3 mmol/L (3.5-5.1)
--- NOTE | 2019-05-14 22:49 | Hospitalist Progress Note ---
Date of Service May 14, 2019 Assessment & Plan (1) Biventricular ICD (implantable cardioverter-defibrillator) in place: ICD firedevents around this/the interrogation of the device well outlined by cardiology. More than likely decompensation of her chronic systolic CHF (otherwise known as HFrEF) likely the proximal culprit for the arrhythmias. Further management otherwise per cardiology. D/W cardio : AV node ablation failed; Patient continues to be SOB, will monitor. may consider antibiotics if no improvement. (2) V-tach: As above (3) Elevated troponin: Mildly elevated troponin after AICD discharge, expected lab value. Patient denies chest pain/palpitations. No EKG ischemic changes Continue home cardiac meds -peaked at 0.1, trending down. (4) CHF (congestive heart failure), NYHA class III: Acute on chronic systolic CHF present on admissionnow improved, examines euvolemic, rising creatinine suggest that she is dry. Hold Lasix for now. Diet history reveals that she takes in a rather heavy amount of accidental sodium ingestion, especially given that this was just on a diet recall and more than likely underestimated her intake. We did extensive discussion on how her kidneys will hold onto water commiserate with the amount of sodium presented to themshe expressed very good understanding of this. Will consult dietitian to further her education, we also discussed and reviewed food labels together for tomato soup and potato chips. She seemed to learn this fairly quickly. I discussed with her that if she stays under 1500 to may be 2000 mg of sodium per day, she will likely be far less brittle with her CHF. Follow fluid management day-to-day Kindey numbers worsened over course of past 24 hours, likely from diuresis, furosemide has been on hold. Hopefully whenever it clears she is euvolemic we can give a trial of Entresto. (5) Chronic kidney disease, stage 4 (severe): Creatinine ema after diuresishold Lasix for now, follow-up basic metabolic panel. Creatinine is still elevated. Continue to hold entresto for now. (6) Eczema: Patient reports dry itchy skin on her posterior left arm. No bleeding or evidence of secondary infection Eucerin every 4 hours as needed (7) AF (paroxysmal atrial fibrillation): Rate controlled, anticoagulated (8) Aortic valve disorder: Status post bioprosthetic aortic valve placement. Echocardiogram noted Cardiology consultation as above (9) Coronary artery disease: Continue med management and secondary risk reduction, troponin almost certainly from ICD firing, not [place]. (10) Depression: Chronic. Stable. Continue escitalopram (11) Hyperlipidemia: Chronic. Stable. Continue atorvastatin (12) Hypertension: Chronic. Stable. Continue chlorthalidone Continue carvedilol, metoprolol, diltiazem Continue to monitor blood pressureshowing reasonable control here (13) Obstructive sleep apnea: Chronic. Patient is unable to wear mask at home secondary to claustrophobia-would benefit from working with home health supplier on other masks such as a nasal pillow. Given the extensiveness that we discussed sodium intake and CHF, I was not able to discuss the critical importance of DI[place]OND and how it relates to CHF today. (14) Vitamin D deficiency: Vitamin D supplementation (15) Diabetes: Sugars have been reasonable thus far, continue current insulin management. A1c pending. Given how receptive she was about diet control for her sodium intake/CHF likely if her A1c is elevated a similar discussion as it relates to the critical importance of lifestyle in the control of type 2 diabetes will be met well. (16) DVT prophylaxis: Anticoagulated (17) Discharge planning issues: Comes from home, further cardiac work-up/testing/interventions to be done as above, PT/OT eval and treat, hopefully she will be able to go back home. Subjective Patient reports she continues to feel very short of breath. She is coughing up yellow sputum. She does state she is somewhat better. Review of Systems Review of Systems: All systems reviewed & are unremarkable except as noted in HPI & below Physical Exam Physical Exam: General: Obese female patient resting comfortably, NAD, non- toxic in appearance, AA&O x 4 Skin: warm, dry, intact, erythema on posterior left arm, dry skin, areas of excoriation on posterior neck HEENT: NC/AT, PERRL, EOMI, no JVD noted. eart: +S1/S2, regular with occasional ectopy, no m/r/g Lungs: equal air entry bilaterally, diminished breath sounds in bases bilaterally, patient continues to have wheezing bilaterally Abd: +BS, soft, NT/ND, no masses/organomegaly/ascites Ext: warm, 2+ pulses in UE/LE bilaterally, no clubbing/cyanosis or edema Neuro: nonfocal, patient AA&O x 4, speech intact, no facial droop, moving all extremities on command with equal strength 5/5 Results & Data Vital Signs (Past 12 Hours) Vital Signs Temp Pulse Pulse Resp BP Pulse Ox 05/14/19 19:15 36.8 C 62 18 91/88 L 95 05/14/19 16:00 71 05/14/19 15:49 36.5 C 62 19 97/65 L 96 05/14/19 15:33 96 05/14/19 11:28 36.6 C 90 18 118/82 94 PG Care Time/CCT Total # of Minutes Spent Total Time Spent with Patient: Total time spent is greater than 50% in coordination of care (as documented) at patient's floor/unit and/or counseling patient: (1) CHF (congestive heart failure), NYHA class III Congestive heart failure chronicity: acute on chronic Congestive heart failure type: systolic Qualified Code(s): I50.23 - Acute on chronic systolic (congestive) heart failure (2) Diabetes Diabetes mellitus complication status: without complication Diabetes mellitus manager intermediate insulin use: with senior care use Diabetes mellitus type: type 2 Qualified Code(s): E11.9 - Type 2 diabetes mellitus without complications; Z79.4 - assisted (current) use of insulin (3) Coronary artery disease Associated angina: without angina Coronary Disease-Associated Artery/Lesion type: [place] artery [place] vs. transplanted heart: [place] heart Qualified Code(s): I25.10 - Atherosclerotic heart disease of [place] coronary artery without angina pectoris (4) Depression Active/Remission status: remission status unspecified Depression Type: major depressive disorder Major depression recurrence: recurrent Qualified Code(s): F33.9 - Major depressive disorder, recurrent, unspecified (5) Hyperlipidemia Hyperlipidemia type: unspecified Qualified Code(s): E78.5 - Hyperlipidemia, unspecified (6) Hypertension Hypertension type: essential hypertension Qualified Code(s): I10 - Essential (primary) hypertension
[2019-05-15] MEDS: IPRATROPIUM BROMIDE/ALBUTEROL respimat INH INH SCH ×3 (06:09→17:17)
[2019-05-15] MEDS: FAMOTIDINE 20 MG TAB PO SCH ×2 (09:17→20:25)
[2019-05-15] MEDS: ESCITALOPRAM OXALATE 20 MG TAB PO SCH (09:17)
[2019-05-15] MEDS: ATORVASTATIN 40 MG TAB PO SCH (09:17)
[2019-05-15] MEDS: carvediloL 25 MG TAB PO SCH ×2 (09:17→20:26)
[2019-05-15] MEDS: ASCORBIC ACID 500 MG TAB PO SCH ×2 (09:17→20:25)
[2019-05-15] MEDS: METOPROLOL SUCC 50MG EXT REL TAB PO SCH (09:17)
[2019-05-15] MEDS: INSULIN GLARGINE SOLOSTAR 100 UNITS/ML 3 ML PEN SC SCH ×2 (09:18→20:52)
[2019-05-15] MEDS: FLUTICASONE/SALMETEROL (ADVAIR) 500/50 INH 14 PUFF INH SCH ×2 (09:18→20:26)
[2019-05-15] MEDS: INSULIN ASPART 100 UNITS/ML 3 ML PEN SC SCH ×4 (09:19→20:54)
[2019-05-15] MEDS: dilTIAZem ER 180 MG CAPCR PO SCH (09:20)
--- NOTE | 2019-05-15 20:04 | Hospitalist Progress Note ---
Date of Service May 15, 2019 Assessment & Plan (1) Asthma exacerbation: Patient continues to be SOB at rest, will monitor. added antibiotics. flutter valve. Patient is not ready for discharge as of yet. (2) Biventricular ICD (implantable cardioverter-defibrillator) in place: ICD firedevents around this/the interrogation of the device well outlined by cardiology. More than likely decompensation of her chronic systolic CHF (otherwise known as HFrEF) likely the proximal culprit for the arrhythmias. Further management otherwise per cardiology. D/W cardio : AV node ablation failed; (3) V-tach: As above (4) Elevated troponin: Mildly elevated troponin after AICD discharge, expected lab value. Patient denies chest pain/palpitations. No EKG ischemic changes Continue home cardiac meds -peaked at 0.1, trending down. (5) CHF (congestive heart failure), NYHA class III: Acute on chronic systolic CHF present on admissionnow improved, examines euvolemic, rising creatinine suggest that she is dry. Hold Lasix for now. Diet history reveals that she takes in a rather heavy amount of accidental sodium ingestion, especially given that this was just on a diet recall and more than likely underestimated her intake. We did extensive discussion on how her kidneys will hold onto water commiserate with the amount of sodium presented to themshe expressed very good understanding of this. Will consult dietitian to further her education, we also discussed and reviewed food labels together for tomato soup and potato chips. She seemed to learn this fairly quickly. I discussed with her that if she stays under 1500 to may be 2000 mg of sodium per day, she will likely be far less brittle with her CHF. Follow fluid management day-to-day Kindey numbers worsened over course of past 24 hours, likely from diuresis, furosemide has been on hold. Hopefully whenever it clears she is euvolemic we can give a trial of Entresto. (6) Chronic kidney disease, stage 4 (severe): Creatinine ema after diuresishold Lasix for now, follow-up basic metabolic panel. Creatinine is still elevated. Continue to hold entresto for now. (7) Eczema: Patient reports dry itchy skin on her posterior left arm. No bleeding or evidence of secondary infection Eucerin every 4 hours as needed (8) AF (paroxysmal atrial fibrillation): Rate controlled, anticoagulated (9) Aortic valve disorder: Status post bioprosthetic aortic valve placement. Echocardiogram noted Cardiology consultation as above (10) Coronary artery disease: Continue med management and secondary risk reduction, troponin almost certainly from ICD firing, not [place]. (11) Depression: Chronic. Stable. Continue escitalopram (12) Hyperlipidemia: Chronic. Stable. Continue atorvastatin (13) Hypertension: Chronic. Stable. Continue chlorthalidone Continue carvedilol, metoprolol, diltiazem Continue to monitor blood pressureshowing reasonable control here (14) Obstructive sleep apnea: Chronic. Patient is unable to wear mask at home secondary to claustrophobia-would benefit from working with home health supplier on other masks such as a nasal pillow. Given the extensiveness that we discussed sodium intake and CHF, I was not able to discuss the critical importance of DI[place] and how it relates to CHF today. (15) Vitamin D deficiency: Vitamin D supplementation (16) Diabetes: Sugars have been reasonable thus far, continue current insulin management. A1c pending. Given how receptive she was about diet control for her sodium intake/CHF likely if her A1c is elevated a similar discussion as it relates to the critical importance of lifestyle in the control of type 2 diabetes will be met well. (17) DVT prophylaxis: Anticoagulated (18) Discharge planning issues: Comes from home, further cardiac work-up/testing/interventions to be done as above, PT/OT eval and treat, hopefully she will be able to go back home. Subjective 73 yo female reprots still feeling short of breath at rest. She states that she is coughing up yellow sputum. She denies any fever or chills. Review of Systems Review of Systems: All systems reviewed & are unremarkable except as noted in HPI & below Physical Exam Physical Exam: General: Obese female patient resting comfortably, NAD, non- toxic in appearance, AA&O x 4 Skin: warm, dry, intact, erythema on posterior left arm, dry skin, areas of excoriation on posterior neck HEENT: NC/AT, PERRL, EOMI, no JVD noted. eart: +S1/S2, regular with occasional ectopy, no m/r/g Lungs: equal air entry bilaterally, diminished breath sounds in bases bilaterally, patient continues to have wheezing bilaterally Abd: +BS, soft, NT/ND, no masses/organomegaly/ascites Ext: warm, 2+ pulses in UE/LE bilaterally, no clubbing/cyanosis or edema Neuro: nonfocal, patient AA&O x 4, speech intact, no facial droop, moving all extremities on command with equal strength 5/5 Results & Data Vital Signs (Past 12 Hours) Vital Signs Temp Pulse Pulse Resp BP Pulse Ox 05/15/19 19:13 36.4 C L 58 L 18 109/67 98 05/15/19 16:16 68 05/15/19 15:17 36.3 C L 65 18 98/62 L 97 05/15/19 13:57 70 05/15/19 12:00 36.5 C 84 22 117/76 95 PG Care Time/CCT Total # of Minutes Spent Total Time Spent with Patient: Total time spent is greater than 50% in coordination of care (as documented) at patient's floor/unit and/or counseling patient: (1) CHF (congestive heart failure), NYHA class III Congestive heart failure chronicity: acute on chronic Congestive heart failure type: systolic Qualified Code(s): I50.23 - Acute on chronic systolic (congestive) heart failure (2) Diabetes Diabetes mellitus complication status: without complication Diabetes mellitus terminal operator insulin use: with terminal operator use Diabetes mellitus type: type 2 Qualified Code(s): E11.9 - Type 2 diabetes mellitus without complications; Z79.4 - director long term care (current) use of insulin (3) Coronary artery disease Associated angina: without angina Coronary Disease-Associated Artery/Lesion type: [place] artery [place] vs. transplanted heart: [place] heart Qualified Code(s): I25.10 - Atherosclerotic heart disease of [place] coronary artery without angina pectoris (4) Depression Active/Remission status: remission status unspecified Depression Type: major depressive disorder Major depression recurrence: recurrent Qualified Code(s): F33.9 - Major depressive disorder, recurrent, unspecified (5) Hyperlipidemia Hyperlipidemia type: unspecified Qualified Code(s): E78.5 - Hyperlipidemia, unspecified (6) Hypertension Hypertension type: essential hypertension Qualified Code(s): I10 - Essential (primary) hypertension
[2019-05-15] MEDS: DOXYCYCLINE HYCLATE 100 MG in DEXTROSE 5% 100 ML IV SCH (20:24)
[2019-05-15] MEDS: cefTRIAXone SODIUM 2,000 MG in DEXTROSE 5% 50 ML IV SCH (20:24)
[2019-05-16] MEDS: IPRATROPIUM BROMIDE/ALBUTEROL respimat INH INH SCH ×4 (00:09→17:50)
[2019-05-16 06:48] LABS: Hematocrit (blood only) 37.7 % (37-47); Hemoglobin 11.7 g/dL (12.0-16.0); Mean Corpuscular Hemoglobin 27.9 pg (25-34); Mean Platelet Volume 9.3 fL (7.4-10.4); Platelet Count 162 K/uL (130-400); RDW Coefficient of Variation 15.7 % (11.5-14.5); RDW Standard Deviation 51.3 fL (36.4-46.3); Red Blood Count 4.19 M/uL (4.2-5.4); White Blood Count 6.72 K/uL (4.8-10.8)
[2019-05-16 07:23] LABS: BUN Creatinine Ratio 22.2 (10-20); Calcium 9.4 mg/dl (8.5-10.1); Est GFR (Non-African American) 22.5; Potassium 3.8 mmol/L (3.5-5.1)
[2019-05-16] MEDS: DOXYCYCLINE HYCLATE 100 MG in DEXTROSE 5% 100 ML IV SCH ×2 (08:55→21:48)
[2019-05-16] MEDS: FAMOTIDINE 20 MG TAB PO SCH ×2 (08:56→21:50)
[2019-05-16] MEDS: ESCITALOPRAM OXALATE 20 MG TAB PO SCH (08:56)
[2019-05-16] MEDS: dilTIAZem ER 180 MG CAPCR PO SCH (08:56)
[2019-05-16] MEDS: carvediloL 25 MG TAB PO SCH ×2 (08:56→21:49)
[2019-05-16] MEDS: FLUTICASONE/SALMETEROL (ADVAIR) 500/50 INH 14 PUFF INH SCH ×2 (08:56→21:49)
[2019-05-16] MEDS: METOPROLOL SUCC 50MG EXT REL TAB PO SCH (08:56)
[2019-05-16] MEDS: ATORVASTATIN 40 MG TAB PO SCH (08:56)
[2019-05-16] MEDS: ASCORBIC ACID 500 MG TAB PO SCH ×2 (08:56→21:51)
[2019-05-16] MEDS: INSULIN GLARGINE SOLOSTAR 100 UNITS/ML 3 ML PEN SC SCH ×2 (08:57→21:52)
[2019-05-16] MEDS: INSULIN ASPART 100 UNITS/ML 3 ML PEN SC SCH ×4 (08:58→21:51)
[2019-05-16] MEDS: cefTRIAXone SODIUM 2,000 MG in DEXTROSE 5% 50 ML IV SCH (21:48)
--- NOTE | 2019-05-16 23:41 | Hospitalist Progress Note ---
Date of Service May 16, 2019 Assessment & Plan (1) Asthma exacerbation: Patient continues to be SOB at rest, will monitor. added antibiotics on 05/15. flutter valve. Patient is not ready for discharge as of yet, however she is improving. SOB likely multifactorial with asthma exacerbation, and CHF. Howevemer main culprit today appears to be the asthma exacerbation. anticipate discharge Friday-Friday. (2) Biventricular ICD (implantable cardioverter-defibrillator) in place: ICD firedevents around this/the interrogation of the device well outlined by cardiology. More than likely decompensation of her chronic systolic CHF (otherwise known as HFrEF) likely the proximal culprit for the arrhythmias. Further management otherwise per cardiology. D/W cardio : AV node ablation failed; (3) V-tach: As above (4) Elevated troponin: Mildly elevated troponin after AICD discharge, expected lab value. Patient denies chest pain/palpitations. No EKG ischemic changes Continue home cardiac meds -peaked at 0.1, trending down. (5) CHF (congestive heart failure), NYHA class III: Acute on chronic systolic CHF present on admissionnow improved, examines euvolemic, rising creatinine suggest that she is dry. Hold Lasix for now. Diet history reveals that she takes in a rather heavy amount of accidental sodium ingestion, especially given that this was just on a diet recall and more than likely underestimated her intake. We did extensive discussion on how her kidneys will hold onto water commiserate with the amount of sodium presented to themshe expressed very good understanding of this. Will consult dietitian to further her education, we also discussed and reviewed food labels together for tomato soup and potato chips. She seemed to learn this fairly quickly. I discussed with her that if she stays under 1500 to may be 2000 mg of sodium per day, she will likely be far less brittle with her CHF. Follow fluid management day-to-day Kindey numbers worsened over course of past 24 hours, likely from diuresis, furosemide has been on hold. Hopefully whenever it clears she is euvolemic we can give a trial of Entresto. (6) Chronic kidney disease, stage 4 (severe): Creatinine ema after diuresishold Lasix for now, follow-up basic metabolic panel. Creatinine is still elevated. Continue to hold entresto for now. (7) Eczema: Patient reports dry itchy skin on her posterior left arm. No bleeding or evidence of secondary infection Eucerin every 4 hours as needed (8) AF (paroxysmal atrial fibrillation): Rate controlled, anticoagulated (9) Aortic valve disorder: Status post bioprosthetic aortic valve placement. Echocardiogram noted Cardiology consultation as above (10) Coronary artery disease: Continue med management and secondary risk reduction, troponin almost certainly from ICD firing, not [place]. (11) Depression: Chronic. Stable. Continue escitalopram (12) Hyperlipidemia: Chronic. Stable. Continue atorvastatin (13) Hypertension: Chronic. Stable. Continue chlorthalidone Continue carvedilol, metoprolol, diltiazem Continue to monitor blood pressureshowing reasonable control here (14) Obstructive sleep apnea: Chronic. Patient is unable to wear mask at home secondary to claustrophobia-would benefit from working with home health supplier on other masks such as a nasal pillow. Given the extensiveness that we discussed sodium intake and CHF, I was not able to discuss the critical importance of DIAMOND and how it relates to CHF today. (15) Vitamin D deficiency: Vitamin D supplementation (16) Diabetes: Sugars have been reasonable thus far, continue current insulin management. A1c pending. Given how receptive she was about diet control for her sodium intake/CHF likely if her A1c is elevated a similar discussion as it relates to the critical importance of lifestyle in the control of type 2 diabetes will be met well. (17) DVT prophylaxis: Anticoagulated (18) Severe obesity: BMI: 41 lrecommend lifestyle changes. will defer to PCP (19) Discharge planning issues: Comes from home,PT/OT eval and treat, hopefully she will be able to go back home once she improves with the flutter valve and antibiotics. From cardiac standpoint, cleared for discharge. Patient though still SOB on exertion (not at baseline). May consider short term course of steroids if no improvement on Friday. Subjective Patient continues to feel short of breath but she finally appears to have taken a turn for the better. She states she is able to ambulate to the bathroom with more ease. Buts he is still not at her baseline. She aso feels like her chest is more "loose" and able to clear out more yellow sputum. Review of Systems Review of Systems: All systems reviewed & are unremarkable except as noted in HPI & below Physical Exam Physical Exam: General: Obese female patient resting comfortably, NAD, non- toxic in appearance, AA&O x 4 Skin: warm, dry, intact, erythema on posterior left arm, dry skin, areas of excoriation on posterior neck HEENT: NC/AT, PERRL, EOMI, no JVD noted. eart: +S1/S2, regular with occasional ectopy, no m/r/g Lungs: equal air entry bilaterally, diminished breath sounds in bases bilaterally, patient does not have wheezing today Abd: +BS, soft, NT/ND, no masses/organomegaly/ascites Ext: warm, 2+ pulses in UE/LE bilaterally, no clubbing/cyanosis or edema Neuro: nonfocal, patient AA&O x 4, speech intact, no facial droop, moving all extremities on command with equal strength 5/5 Results & Data Vital Signs (Past 12 Hours) Vital Signs Temp Pulse Pulse Resp BP Pulse Ox 05/16/19 19:04 36.5 C 60 18 130/83 95 05/16/19 17:44 60 05/16/19 15:22 36.4 C L 60 18 105/68 97 05/16/19 12:21 36.7 C 68 18 111/75 97 PG Care Time/CCT Total # of Minutes Spent Total Time Spent with Patient: Total time spent is greater than 50% in coordination of care (as documented) at patient's floor/unit and/or counseling patient: (1) CHF (congestive heart failure), NYHA class III Congestive heart failure chronicity: acute on chronic Congestive heart failure type: systolic Qualified Code(s): I50.23 - Acute on chronic systolic (congestive) heart failure (2) Diabetes Diabetes mellitus complication status: without complication Diabetes mellitus nursing home insulin use: with terminal block assembler use Diabetes mellitus type: type 2 Qualified Code(s): E11.9 - Type 2 diabetes mellitus without complications; Z79.4 - skilled nursing (current) use of insulin (3) Coronary artery disease Associated angina: without angina Coronary Disease-Associated Artery/Lesion type: [place] artery [place] vs. transplanted heart: [place] heart Qualified Code(s): I25.10 - Atherosclerotic heart disease of [place] coronary artery without angina pectoris (4) Depression Active/Remission status: remission status unspecified Depression Type: major depressive disorder Major depression recurrence: recurrent Qualified Code(s): F33.9 - Major depressive disorder, recurrent, unspecified (5) Hyperlipidemia Hyperlipidemia type: unspecified Qualified Code(s): E78.5 - Hyperlipidemia, unspecified (6) Hypertension Hypertension type: essential hypertension Qualified Code(s): I10 - Essential (primary) hypertension
[2019-05-17] MEDS: IPRATROPIUM BROMIDE/ALBUTEROL respimat INH INH SCH ×4 (00:16→17:28)
[2019-05-17] MEDS: INSULIN ASPART 100 UNITS/ML 3 ML PEN SC SCH ×4 (08:14→20:31)
[2019-05-17] MEDS: INSULIN GLARGINE SOLOSTAR 100 UNITS/ML 3 ML PEN SC SCH ×2 (08:14→20:32)
[2019-05-17] MEDS: ASCORBIC ACID 500 MG TAB PO SCH ×2 (08:15→20:30)
[2019-05-17] MEDS: ATORVASTATIN 40 MG TAB PO SCH (08:15)
[2019-05-17] MEDS: FAMOTIDINE 20 MG TAB PO SCH ×2 (08:15→20:30)
[2019-05-17] MEDS: ESCITALOPRAM OXALATE 20 MG TAB PO SCH (08:15)
[2019-05-17] MEDS: carvediloL 25 MG TAB PO SCH ×2 (08:15→20:30)
[2019-05-17] MEDS: METOPROLOL SUCC 50MG EXT REL TAB PO SCH (08:15)
[2019-05-17] MEDS: FLUTICASONE/SALMETEROL (ADVAIR) 500/50 INH 14 PUFF INH SCH ×2 (08:15→20:30)
[2019-05-17] MEDS: dilTIAZem ER 180 MG CAPCR PO SCH (08:15)
[2019-05-17] MEDS: DOXYCYCLINE HYCLATE 100 MG in DEXTROSE 5% 100 ML IV SCH (08:24)
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
--- NOTE | 2019-05-17 09:46 | Cardiology Progress Note ---
Date of Service May 17, 2019 Assessment & Plan (1) V-tach: No recurrence. Continue beta-blockers. (2) Elevated troponin: Most likely indicative of chronic heart failure. Not indicative of an acute coronary syndrome. (3) Shortness of breath: Overall improved. I think she could be discharged on her current dose of furosemide. Renal function appears to be stable although compromised. We could follow her electrolytes and renal function in the outpatient setting. (4) AF (paroxysmal atrial fibrillation): She continues in sinus rhythm. I suspect she will return to atrial fibrillation at some point. We can make another attempt at AV node ablation at that time if necessary. She should continue on her current medications which include to beta-blockers, diltiazem and apixaban. (5) Biventricular ICD (implantable cardioverter-defibrillator) in place: Normal function. Currently pacing 100% in sinus rhythm (6) Cardiomyopathy: Longstanding and nonischemic. Present prior to her dissection, valve replacement and bypass. He has been maintained primarily on beta-blockade due to orthostatic symptoms with lisinopril. Also with compromise renal function. (7) Coronary artery disease: She underwent single-vessel bypass at the time of her valve replacement several years ago. No current symptoms suggestive of coronary insufficiency or ischemia. Continue on beta-blockade, high-dose atorvastatin and apixaban Subjective This morning the patient claims to be feeling well. She reports being ambulatory with assistance around her room yesterday. She continues to have an element of dyspnea but much improved since admission. He denies any dizziness or lightheadedness. No sense of palpitation. Review of Systems Review of Systems: For HPI Physical Exam Physical Exam: She is alert and oriented x3. Mood affect appear normal. She answered all questions appropriately. Obese HEENT: Sclerae are anicteric. Pupils are equal and reactive to light and accommodation. Extraocular movements were intact. Neuro: Cranial nerves intact Lungs: Lungs are clear to auscultation bilaterally. There are no rales or rhonchi. Occasional expiratory wheeze. She has normal respiratory effort wi thout use of accessory muscles. There is normal pulmonary excursion. Cardiac: The rhythm was regular. S1 and S2 were normal. Crescendo systolic murmur. The PMI was not markedly displaced on palpation. Abdomen: The abdomen was soft and nontender. Obese. Extremities: Patient has bilateral radial pulses that are equal in intensity. There is no evidence cyanosis or clubbing. No edema. Skin: There are no rashes noted on examination today. Results & Data Vital Signs (Past 12 Hours) Vital Signs Temp Pulse Resp BP BP Pulse Ox 05/17/19 07:36 36.6 C 61 22 127/73 94 05/17/19 03:31 36.9 C 61 18 114/71 95 05/16/19 23:53 36.8 C 68 19 129/78 Laboratory Results Abnormal Lab Results 05/16/19 05/16/19 05/16/19 11:43 16:20 20:04 POC Glucose 129 H 156 H 96 05/17/19 07:35 POC Glucose 140 H ECG Additional Comments: Review of her telemetry reveals sinus rhythm with ventricular pacing PG Care Time/CCT Total # of Minutes Spent Total Time Spent with Patient: Total time spent is greater than 50% in coor dination of care (as documented) at patient's floor/unit and/or counseling patient: (1) Coronary artery disease Coronary Disease-Associated Artery/Lesion type: [place] artery [place] vs. transplanted heart: [place] heart Associated angina: without angina Qualified Code(s): I25.10 - Atherosclerotic heart disease of [place] coronary artery without angina pectoris
[2019-05-17] MEDS: predniSONE 20 MG TAB PO SCH (12:29)
--- NOTE | 2019-05-17 17:13 | Billing Data ---
Date of Service May 17, 2019 Coding Level of Care Code 55897 Subseq Hosp Care Lvl 3
[2019-05-17] MEDS: APIXABAN 2.5 MG TAB PO SCH (21:54)
[2019-05-18] MEDS: IPRATROPIUM BROMIDE/ALBUTEROL respimat INH INH SCH ×5 (00:07→23:31)
[2019-05-18 06:42] LABS: Hematocrit (blood only) 38.9 % (37-47); Hemoglobin 12.6 g/dL (12.0-16.0); Immature Granulocytes # (auto) 0.02 K/uL (0.00-0.02); Immature Granulocytes % (auto) 0.2 %; Lymphocytes # (auto) 0.67 K/uL (1.2-3.4); Lymphocytes % (auto) 7.9 %; Mean Corpuscular Hgb Conc 32.4 g/dL (32-36); Mean Corpuscular Volume 86.4 fL (80-100); Mean Platelet Volume 9.7 fL (7.4-10.4); Monocytes # (auto) 0.19 K/uL (0.11-0.59); Monocytes % (auto) 2.2 %; Neutrophils # (auto) 7.61 K/uL (1.4-6.5); Neutrophils % (auto) 89.7 %; Platelet Count 197 K/uL (130-400); RDW Coefficient of Variation 15.5 % (11.5-14.5); RDW Standard Deviation 49.2 fL (36.4-46.3); White Blood Count 8.49 K/uL (4.8-10.8)
[2019-05-18 07:17] LABS: BUN Creatinine Ratio 21.9 (10-20); Creatinine Clr Calc Pharmacy 25.5 ml/min; Est GFR (African American) 26.3; Est GFR (Non-African American) 22.7; Potassium 4.1 mmol/L (3.5-5.1)
[2019-05-18] MEDS: FAMOTIDINE 20 MG TAB PO SCH ×2 (08:04→21:20)
[2019-05-18] MEDS: predniSONE 20 MG TAB PO SCH (08:04)
[2019-05-18] MEDS: APIXABAN 2.5 MG TAB PO SCH ×2 (08:04→21:20)
[2019-05-18] MEDS: ESCITALOPRAM OXALATE 20 MG TAB PO SCH (08:05)
[2019-05-18] MEDS: dilTIAZem ER 180 MG CAPCR PO SCH (08:05)
[2019-05-18] MEDS: ATORVASTATIN 40 MG TAB PO SCH (08:05)
[2019-05-18] MEDS: METOPROLOL SUCC 50MG EXT REL TAB PO SCH (08:05)
[2019-05-18] MEDS: carvediloL 25 MG TAB PO SCH ×2 (08:05→21:23)
[2019-05-18] MEDS: ASCORBIC ACID 500 MG TAB PO SCH ×2 (08:06→21:20)
[2019-05-18] MEDS: FLUTICASONE/SALMETEROL (ADVAIR) 500/50 INH 14 PUFF INH SCH ×2 (08:06→21:19)
[2019-05-18] MEDS: INSULIN GLARGINE SOLOSTAR 100 UNITS/ML 3 ML PEN SC SCH ×2 (08:27→21:23)
[2019-05-18] MEDS: INSULIN ASPART 100 UNITS/ML 3 ML PEN SC SCH ×4 (08:27→21:27)
--- NOTE | 2019-05-18 10:12 | Cardiology Progress Note ---
Date of Service May 18, 2019 Assessment & Plan (1) AF (paroxysmal atrial fibrillation): She continues in sinus rhythm. She may return to atrial fibrillation at some point, but her rate should be better controlled post ablation. Continue on her current beta-blockers, diltiazem and apixaban. (2) Biventricular ICD (implantable cardioverter-defibrillator) in place: Normal function. Currently pacing 100% in sinus rhythm (3) Shortness of breath: Overall improved, renal function compromised but stable. Discharge on current dose of furosemide. Follow her electrolytes and renal function in the outpatient setting. (4) Cardiomyopathy: Longstanding and nonischemic. Present prior to her dissection, valve replacement and bypass. He has been maintained primarily on beta-blockade due to orthostatic symptoms with lisinopril. (5) Coronary artery disease: She underwent single-vessel bypass at the time of her valve replacement (2002). No current symptoms suggestive of coronary insufficiency or ischemia. Continue on beta-blockade, high-dose atorvastatin and apixaban (6) V-tach: No recurrence. Continue beta-blockers. (7) Elevated troponin: Most likely indicative of chronic heart failure. Not indicative of an acute coronary syndrome. Subjective Patient appears comfortable but fatigued. No dyspnea at rest. No chest pain, palpitations, or other complaints. Slept poorly, but not due to dyspnea.Difficulty ambulating without assistance. Review of Systems Review of Systems: Per HPI Physical Exam Physical Exam: No distress. Appears comfortable eating breakfast. Skin: No unusual lesions or ecchymosis. HEENT: Unremarkable. Neck: Jugular venous pulse 1[address] the angle of the jaw at 90, increased respiratory variation, no carotid bruits. Lungs: Moderately decreased breath sounds but clear. Wheezing on forced exhalation. Cardiac: Regular rhythm with 2/6 right upper sternal border systolic ejection murmur which is non radiating. No diastolic murmur or obvious gallop. Abdomen: Benign. Extremities: Nontender with no pretibial edema. Intact peripheral pulses. Neurologic: Normal affect, nonfocal Results & Data Vital Signs (Past 12 Hours) Vital Signs Temp Pulse Resp BP Pulse Ox 05/18/19 00:23 98.1 F 65 20 119/72 93 Laboratory Results 05/18/19 06:11 Potassium 4.1 BUN 46 H Creatinine 2.08 H (1) Coronary artery disease Coronary Disease-Associated Artery/Lesion type: [place] artery [place] vs. transplanted heart: [place] heart Associated angina: without angina Qualified Code(s): I25.10 - Atherosclerotic heart disease of [place] coronary artery without angina pectoris
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
--- NOTE | 2019-05-18 19:02 | Billing Data ---
Date of Service May 18, 2019 Coding Level of Care Code 83245 Subseq Hosp Care Lvl 3
[2019-05-19] MEDS: IPRATROPIUM BROMIDE/ALBUTEROL respimat INH INH SCH ×2 (05:45→12:36)
[2019-05-19 06:38] LABS: Creatinine Clr Calc Pharmacy 20.2 ml/min; Est GFR (African American) 23.4; Est GFR (Non-African American) 20.2
[2019-05-19] MEDS: FLUTICASONE/SALMETEROL (ADVAIR) 500/50 INH 14 PUFF INH SCH (08:27)
[2019-05-19] MEDS: FAMOTIDINE 20 MG TAB PO SCH (08:28)
[2019-05-19] MEDS: ASCORBIC ACID 500 MG TAB PO SCH (08:28)
[2019-05-19] MEDS: ESCITALOPRAM OXALATE 20 MG TAB PO SCH (08:29)
[2019-05-19] MEDS: FUROSEMIDE 40 MG TAB PO SCH (08:29)
[2019-05-19] MEDS: APIXABAN 2.5 MG TAB PO SCH (08:29)
[2019-05-19] MEDS: ATORVASTATIN 40 MG TAB PO SCH (08:29)
[2019-05-19] MEDS: dilTIAZem ER 180 MG CAPCR PO SCH (08:29)
[2019-05-19] MEDS: predniSONE 20 MG TAB PO SCH (08:30)
[2019-05-19] MEDS: METOPROLOL SUCC 50MG EXT REL TAB PO SCH (08:30)
[2019-05-19] MEDS: carvediloL 25 MG TAB PO SCH (08:30)
[2019-05-19] MEDS: INSULIN ASPART 100 UNITS/ML 3 ML PEN SC SCH ×2 (08:34→12:35)
[2019-05-19] MEDS: INSULIN GLARGINE SOLOSTAR 100 UNITS/ML 3 ML PEN SC SCH (08:35)
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
--- NOTE | 2019-05-19 09:33 | Cardiology Progress Note ---
Date of Service May 19, 2019 Assessment & Plan (1) AF (paroxysmal atrial fibrillation): Clinically she remains in sinus rhythm. She may return to atrial fibrillation at some point, but her rate should be better controlled post ablation. Continue on her current beta-blockers, diltiazem and apixaban. (2) Biventricular ICD (implantable cardioverter-defibrillator) in place: Normal function. (3) Shortness of breath: Overall improved, renal function compromised but stable. Discharge on current dose of furosemide. Follow her electrolytes and renal function in the outpatient setting. (4) Cardiomyopathy: Longstanding and nonischemic. Present prior to her dissection, valve replacement and bypass. He has been maintained primarily on beta-blockade due to orthostatic symptoms with lisinopril. (5) Coronary artery disease: She underwent single-vessel bypass at the time of her valve replacement (2002). No current symptoms suggestive of coronary insufficiency or ischemia. Continue on beta-blockade, high-dose atorvastatin and apixaban (6) V-tach: No recurrence. Continue beta-blockers. Has ICD. (7) Elevated troponin: Most likely indicative of chronic heart failure. Not indicative of an acute coronary syndrome. Subjective Patient appears comfortable. No dyspnea at rest. No chest pain, palpitations, or other complaints. Slept poorly, but not due to dyspnea. Plan is to return home today with in-home assistance. Physical Exam Physical Exam: No distress. Appears comfortable eating breakfast. Skin: No unusual lesions or ecchymosis. HEENT: Unremarkable. Neck: Jugular venous pulse just above the clavicle at 90, increased respiratory variation, no carotid bruits. Lungs: Moderately decreased breath sounds but clear. Wheezing on forced exhalation only. Cardiac: Regular rhythm with 2/6 right upper sternal border systolic ejection murmur which is non radiating. No diastolic murmur or obvious gallop. Abdomen: Benign. Extremities: Nontender with no pretibial edema. Intact peripheral pulses. Neurologic: Normal affect, nonfocal Results & Data Vital Signs (Past 12 Hours) Vital Signs Temp Pulse Resp BP Pulse Ox 05/19/19 07:25 98.4 F 62 18 128/68 97 05/18/19 23:35 98.1 F 57 L 20 136/71 94 (1) Coronary artery disease Coronary Disease-Associated Artery/Lesion type: [place] artery [place] vs. transplanted heart: [place] heart Associated angina: without angina Qualified Code(s): I25.10 - Atherosclerotic heart disease of [place] coronary artery without angina pectoris
--- NOTE | 2019-05-20 21:14 | Billing Data ---
Date of Service May 19, 2019 Coding Level of Care Code D/C Day Management <30 mins
== END 2019-05-19 17:01 | disposition home health service (06) | DRG 273 ==
LOC: ED 08:45 → 2W 11:29 → SUATTDRO 11:29 → 2W 11:57 → 2S 05-13 11:58 → 4W 05-17 17:28

== ENCOUNTER 2019-07-17 09:09 | Inpatient (IN) ==
[2019-07-17] MEDS ORDERED: HYDROmorphone INJ 0.5 MG/0.5 ML SYR IV STA (09:56)
[2019-07-17] MEDS ORDERED: ONDANSETRON INJ 2 MG/ML 2 ML VIAL IV STA (09:56)
--- NOTE | 2019-07-17 11:00 | Emergency Department Note ---
ED Visit Note I assisted attending Dr. Riggins in the care of this patient. Please see attending's note for details of the visit. Nathalia Griffin MD Pilot Safety Inspector PGY-3 . Resident Activity Tracking Resident Involvement: Resident Care Provided Care Provided: Adult ED
[2019-07-17 11:26] LABS: Basophils # (auto) 0.03 K/uL (0-0.2); Basophils % (auto) 0.3 %; Eosinophils # (auto) 0.07 K/uL (0-0.5); Eosinophils % (auto) 0.7 %; Hematocrit (blood only) 38.3 % (37-47); Hemoglobin 12.3 g/dL (12.0-16.0); Immature Granulocytes # (auto) 0.02 K/uL (0.00-0.02); Immature Granulocytes % (auto) 0.2 %; Lymphocytes # (auto) 1.22 K/uL (1.2-3.4); Lymphocytes % (auto) 11.5 %; Mean Corpuscular Hemoglobin 27.9 pg (25-34); Mean Corpuscular Hgb Conc 32.1 g/dL (32-36); Mean Corpuscular Volume 86.8 fL (80-100); Mean Platelet Volume 9.3 fL (7.4-10.4); Monocytes # (auto) 0.83 K/uL (0.11-0.59); Monocytes % (auto) 7.9 %; Neutrophils % (auto) 79.4 %; Platelet Count 217 K/uL (130-400); RDW Coefficient of Variation 15.1 % (11.5-14.5); RDW Standard Deviation 48.5 fL (36.4-46.3); Red Blood Count 4.41 M/uL (4.2-5.4); White Blood Count 10.57 K/uL (4.8-10.8)
[2019-07-17 11:37] LABS: INR 1.1 (0.9-1.1); Partial Thromboplastin Time 27.9 Seconds (21.0-31.0); Prothrombin Time 11.9 Seconds (9.0-12.0)
[2019-07-17 11:42] LABS: Alanine Aminotransferase 19 U/L (12-78); Albumin Level 3.2 gm/dl (3.4-5.0); Aspartate Aminotransferase 20 U/L (15-37); BUN Creatinine Ratio 12.1 (10-20); Blood Urea Nitrogen 28 mg/dl (7-18); Calcium 9.7 mg/dl (8.5-10.1); Carbon Dioxide 29 mmol/L (21-32); Chloride 104 mmol/L (98-107); Est GFR (African American) 23.2; Glucose 105 mg/dl (70-99); Potassium 3.8 mmol/L (3.5-5.1); Sodium 139 mmol/L (136-145)
[2019-07-17 11:44] LABS: Albumin Globulin Ratio 0.9 (0.9-2); Alkaline Phosphatase 116 U/L (45-117); Bilirubin,Total 0.5 mg/dl (0.2-1); Globulin 3.7 gm/dl (2.5-4.0); Total Protein 6.9 gm/dl (6.4-8.2)
--- NOTE | 2019-07-17 13:18 | Ultrasound Report ---
US pelvic complete, US transvaginal CLINICAL HISTORY: 73 years-old Female presenting with postmenopausal bleeding on eliquis, 3, hi story of C-sections. TECHNIQUE: Real-time grayscale and color and spectral Doppler ultrasound imaging of the pelvis was pe rformed first using a transabdominal probe and subsequently transvaginal for better characterization. COMPARISON: CT from 12/19/2016. FINDINGS: TRANSABDOMINAL: Transabdominal imaging was performed for a minimally invasive evaluation and to ensur e visualization of global pelvic findings. Bladder: Normal. Uterus: Significant heterogeneity of myometrium both and echotexture and echogenicity. Orientation: A nteverted. Size: 9.2 x 4.4 x 6.2 cm. Endometrial stripe thickness: Not well delineated. Endometrium: Heterogeneous. Cervix: Not well visualized and possibly distended with heterogeneous material. Right adnexa: Right ovary: Not visualized. Left adnexa: Left ovary: Not visualized. Other: No large volume free fluid. ENDOVAGINAL: Endovaginal imaging was subsequently performed, which was necessitated by incomplete vis ualization of the adnexa, inability or suboptimal ability to perform spectral Doppler interrogation o f the ovaries, and suboptimal sonographic penetration of the deep pelvis. Limited views with endovagi nal imaging were obtained due to patient discomfort. Uterus: Significantly heterogeneous lower uterine segment. Right adnexa: Right ovary: Not visualized. Left adnexa: Left ovary: Not visualized. Other: No large volume free fluid. IMPRESSION: 1. Significant heterogeneity of the uterus. Limited evaluation on endovaginal imaging given patient discomfort. This examination is inconclusive and could suggest both benign or malignant etiologies to this appearance. Differential diagnostic considerations affecting the myometrium, such as diffuse ad enomyosis, or affecting the endometrium, such as endometrial hyperplasia or carcinoma, could be consi dered. Further evaluation with contrast enhanced pelvic MRI could be considered along with gynecologi c consultation. 2. Nonvisualization of the ovaries. ACT 112: Negative or not required by law. Electronically signed by: Salomón Benson M.D. 07/17/2019 1:16 PM
[2019-07-17] MEDS ORDERED: DAPTOmycin 275 MG in SYRINGE 0 ML IV ONE (13:39)
[2019-07-17] MEDS ORDERED: DAPTOMYCIN CONSULT ACTIVE PRN ×2 (13:39→15:37)
--- NOTE | 2019-07-17 13:46 | Emergency Department Note ---
Entered by Abilio Lin acting as a scribe for Loco Riggins MD History of Present Illness General Chief complaint: Vaginal Bleeding Stated complaint: VAGINAL BLEEDING,STOMACH PAIN,BACK PAIN Time Seen by Provider: 07/17/19 09:24 Source: patient History of Present Illness Onset (ago): hour(s) (last night) Location: genitals (vagina) Pain Consistency: + intermittent Maximum Pain Intensity: 4 Quality: + other (bleeding) Associated symptoms: + denies other symptoms (loose stool, pain with urination) The patient is a 73 y/o female who presents to the ED w/ CC of intermittent vaginal bleeding beginning last night. The patient states she had a few drops of blood in her underwear last night before she went to sleep. She reports she then woke up to find more blood in her underwear. The patient notes she also has been having lower abdominal pain since the start of her vaginal bleeding. She states she has a history of vaginal bleeding in the past as well as kidney stones and stents. The patient denies loose stool and pain with urination. She also denies a history of abdominal surgeries. The patient notes she is on Eliquis for a-fib. Home Medications Home Medications Medication Instructions Recorded Confirmed Type ascorbic acid (vitamin C) [Vitamin 1,000 mg PO Q12H 05/18/18 07/17/19 History C] atorvastatin 40 mg PO QPM 05/18/18 07/17/19 History carvedilol 25 mg PO BID 05/18/18 07/17/19 History cholecalciferol (vitamin D3) 1,000 unit PO DAILY 05/18/18 07/17/19 History [Vitamin D3] fluticasone propion-salmeterol 1 inh INHALATION BID 05/18/18 07/17/19 History [Advair Diskus] Combivent Respimat 1 puff INHALATION QID 05/19/18 07/17/19 History diltiazem HCl 180 mg PO DAILY 05/19/18 07/17/19 History escitalopram oxalate 20 mg PO DAILY 05/19/18 07/17/19 History albuterol sulfate 2.5 mg INHALATION Q4H PRN #75 ml 05/20/19 07/17/19 Rx albuterol sulfate 90 mcg/actuation 2 puff INHALATION Q4H PRN #8 gm 05/20/19 07/17/19 Rx aerosol inhaler apixaban 2.5 mg tablet 2.5 mg PO BID #60 tab 05/20/19 07/17/19 Rx ketoconazole 2 % topical cream 1 applic TOPICAL BID PRN #30 gm 05/20/19 07/17/19 Rx metoprolol succinate 50 mg 50 mg PO DAILY #30 tab 05/20/19 07/17/19 Rx tablet,extended release 24 hr ondansetron HCl 4 mg tablet 4 mg PO Q8H PRN #20 tab 05/20/19 07/17/19 Rx ranitidine HCl 150 mg tablet 150 mg PO BID PRN #60 tab 05/20/19 07/17/19 Rx blood sugar diagnostic #100 ea 06/03/19 07/17/19 Rx blood-glucose meter #1 ea 06/03/19 07/17/19 Rx lancets #100 ea 06/03/19 07/17/19 Rx furosemide 40 mg tablet 40 mg PO QAM #90 tab 06/29/19 07/17/19 Rx insulin glargine 100 unit/mL (3 See Rx Instructions SUBCUT BID ml 07/08/19 07/17/19 History mL) subcutaneous pen sulfamethoxazole 800 0.5 tab PO BID #7 tab 07/08/19 07/17/19 Rx mg-trimethoprim 160 mg tablet sacubitril 24 mg-valsartan 26 mg 1 tab PO BID #60 tab 07/09/19 07/17/19 Rx tablet amoxicillin 875 mg-potassium 1 tab PO BID #20 tab 07/13/19 07/17/19 Rx clavulanate 125 mg tablet Allergies Allergy/AdvReac Type Severity Reaction Status Date / Time aspirin Allergy Intermediate HIVES Verified 07/17/19 10:36 Iodinated Contrast Media Allergy Intermediate HIVES - Verified 07/17/19 10:36 MRI DYE levofloxacin Allergy Intermediate HIVES, Verified 07/17/19 10:36 VEIN IRRITATION W/IV LEVAQUIN erythromycin base Allergy Unknown UNKNOWN Verified 07/17/19 10:36 Past Med/Surg History Medical History AF (paroxysmal atrial fibrillation) (Chronic) Anticoagulated (Chronic) Aortic valve disorder (Chronic) Asthma (Chronic) Biventricular ICD (implantable cardioverter-defibrillator) in place (Chronic) Cardiomyopathy (Resolved 07/12/11) Cellulitis (Acute) CHF (congestive heart failure), NYHA class III (Chronic) Chronic kidney disease, stage 4 (severe) (Chronic) Cognitive changes COPD with acute exacerbation (Resolved) Coronary artery disease (Chronic 11/23/10) CVA (cerebral vascular accident) (Resolved 11/23/10) Depression (Chronic) Diabetes (Chronic) Diabetes mellitus type 2 in nonobese (Chronic 11/23/10) Hematuria History of - coronary artery bypass grafting (Resolved 11/23/10) Hyperlipidemia (Chronic 11/23/10) Hypertension (Chronic) 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 (Resolved 11/23/10) Mild acid reflux (Resolved) Obstructive sleep apnea (Chronic) Olecranon bursitis of right elbow Repair of aortic valve with tissue graft (Resolved 11/23/10) Urge incontinence of urine (Chronic) Vitamin D deficiency (Chronic) Surgical History H/O aortic valve replacement (Resolved) Porcine AVR and aortic root graft for proximal aortic dissection 2003 History of aortic aneurysm repair (Resolved) Hx of CABG CABG x1 (PACHECO TO LAD for LV hypokinesis-not CAD-- Done at the time of AVR and aortic root graft) 2002 Family History Mother Diabetes Myocardial infarction Sister Diabetes Son Hypertension Denies family history of Ovarian cancer Prostate cancer Breast cancer Lung cancer Colorectal cancer Cancer Social History Preferred Language: [place] Communication Ability: Effective 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 Beliefs That Will Affect Care: None marital status: / Current Living Situation: Family current occupational status: disabled Other Information That Helps Us Care for You: No Feels Safe at Home: Yes Safety Concerns: Feels Safe At This Time Smoking Status: Never smoker Do You Dip or Chew Tobacco: No ; Second Hand Exposure: No ; Tobacco Cessation Education Requested by Patient: No Hx Alcohol Use: No Hx Substance Use: No caffeine: Yes (soda) Dental Care, Regularly: No Physical Activity Frequency: Daily Seatbelt Use: sometimes Sunscreen Use: No Review of Systems See HPI for pertinent positives & negatives. and A total of 10 systems reviewed and were otherwise negative Physical Exam Vital Signs Vital Signs - 24 hr 07/17/19 09:11 07/17/19 10:09 07/17/19 10:35 Temperature 37.0 C Temperature Source Oral Pulse Rate 84 60 Pulse Rate [Apical] 67 Pulse Rate from SpO2 Sensor 60 Pulse Rhythm [Apical] Regular Respiratory Rate 18 24 24 Respiratory Effort / Characteristics Non-Labored Respiratory Depth Normal Normal Blood Pressure 147/73 H 129/71 Blood Pressure [Left Arm] 129/71 Blood Pressure Mean 97 90 Blood Pressure Mean [Left Arm] 90 Blood Pressure Position [Left Arm] Sitting Pulse Oximetry 92 89 L 89 L Oxygen Delivery Method Room Air Oxygen Flow Rate Sepsis Recent Fever Within 48 Hours No Sepsis New/Unexplained Change in Mental Status No Sepsis Action Taken by Nursing No Action Required Oxygen Flow Rate - Titration Pulse Oximetry Post Tiitration 07/17/19 11:47 07/17/19 11:49 07/17/19 12:00 Temperature Temperature Source Pulse Rate 70 65 Pulse Rate [Apical] Pulse Rate from SpO2 Sensor 71 67 Pulse Rhythm [Apical] Respiratory Rate 17 22 Respiratory Effort / Characteristics Respiratory Depth Blood Pressure 134/76 132/77 Blood Pressure [Left Arm] Blood Pressure Mean 96 97 Blood Pressure Mean [Left Arm] Blood Pressure Position [Left Arm] Pulse Oximetry 90 76 L 94 Oxygen Delivery Method Room Air Oxygen Flow Rate 0 3 Sepsis Recent Fever Within 48 Hours Sepsis New/Unexplained Change in Mental Status Sepsis Action Taken by Nursing Oxygen Flow Rate - Titration 3 Pulse Oximetry Post Tiitration 92 General: Chronically-ill appearing older female in no acute distress. HEENT: Normal cephalic atraumatic. Pupils are equal round and reactive to light. Extraocular movements are intact. Oropharynx is pink with moist mucous membranes. No swelling of the mouth lips or tongue. Neck: Supple with a midline trachea. No meningeal signs or stiffness, no JVD or bruits. No Stridor. Chest: Clear to auscultation bilaterally. No wheezes or rhonchi. No increased work of breathing. Heart: regular rate and rhythm. Abdomen: Soft nontender, nondistended without rebound guarding or rigidity. Pelvic (performed by female resident): external appearance of the genitalia notable for dried blood, vaginal wall intact, cervical os difficult to visualize, approximately 5cc of pooled red blood. Extremities: No cyanosis clubbing. Trace lower extremity edema. No calf tenderness or asymmetry. Right elbow is red, warm, and tender extending up into the proximal arm. Spine/Back. Non tender to palpation. No CVA tenderness Skin: Good turgor without rashes. Neurologic exam: Cranial nerves two through 12 are intact. Motor and sensation are intact and symmetrical throughout. Course Course 0951: The patient was evaluated in room B05 by the resident under my supervision. A complete history and physical exam was performed. 1111: The resident reevaluated the patient. An IV has not been established yet. The patient has had no relief of her symptoms. 1202: The patient was hypoxic on vitals. She has a history of sleep apnea and received her Dilaudid. She is now on NC, and her discomfort has been moderately alleviated. 1311: The patient was evaluated in room B05 by me. A complete history and physical exam was performed. 1331: The resident reviewed the [facility] She will evaluate the patient for further management. 1335: Upon reevaluation, the patient is resting comfortably. I discussed laboratory and radiographic results with her. She verbalized agreement of the treatment plan. The patient will be evaluated for further management and care. Administered Medications Discontinued Medications Hydromorphone HCl (Dilaudid) 0.5 mg IV NOW STA Stop: 07/17/19 09:57 Last Admin: 07/17/19 11:38 Dose: 0.5 mg Documented by: [id number] Ondansetron HCl (Zofran) 4 mg IV NOW STA Stop: 07/17/19 09:57 Last Admin: 07/17/19 11:39 Dose: 4 mg Documented by: [id number] Medical Decision Making Differential Diagnosis Differential diagnosis includes: vaginal bleeding, anemia, cellulitis, bursitis, cardiac disease, sepsis, electrolyte or metabolic abnormality. Medical Records Attestation: I reviewed the patient's medical records. Home Medications Current Medication List: was personally reviewed by me Laboratory Data Attestation: I reviewed the patient's lab results. Result diagrams: 07/17/19 11:15 07/17/19 11:15 Lab Results 07/17/19 07/17/19 07/17/19 Range/Units 11:15 11:15 11:15 WBC 10.57 (4.8-10.8) K/uL RBC 4.41 (4.2-5.4) M/uL Hgb 12.3 (12.0-16.0) g/dL Hct 38.3 (37-47) % MCV 86.8 (80-100) fL MCH 27.9 (25-34) pg MCHC 32.1 (32-36) g/dL RDW Std Deviation 48.5 H (36.4-46.3) fL RDW Coeff of Chriss 15.1 H (11.5-14.5) % Plt Count 217 (130-400) K/uL MPV 9.3 (7.4-10.4) fL Immature Gran % (Auto) 0.2 % Neut % (Auto) 79.4 % Lymph % (Auto) 11.5 % [place] % (Auto) 7.9 % Eos % (Auto) 0.7 % Baso % (Auto) 0.3 % Immature Gran # (Auto) 0.02 (0.00-0.02) K/uL Neut # (Auto) 8.40 H (1.4-6.5) K/uL Lymph # (Auto) 1.22 (1.2-3.4) K/uL [place] # (Auto) 0.83 H (0.11-0.59) K/uL Eos # (Auto) 0.07 (0-0.5) K/uL Baso # (Auto) 0.03 (0-0.2) K/uL PT 11.9 (9.0-12.0) Seconds INR 1.1 (0.9-1.1) APTT 27.9 (21.0-31.0) Seconds PTT Ratio 1.0 Sodium (136-145) mmol/L Potassium (3.5-5.1) mmol/L Chloride (98-107) mmol/L Carbon Dioxide (21-32) mmol/L Anion Gap (3-11) BUN (7-18) mg/dl Creatinine (0.6-1.2) mg/dl Est Cr Clr Drug Dosing Est GFR ( Amer) Est GFR (Non-Af Amer) BUN/Creatinine Ratio (10-20) Glucose (70-99) mg/dl Calcium (8.5-10.1) mg/dl Total Bilirubin (0.2-1) mg/dl AST (15-37) U/L ALT (12-78) U/L Alkaline Phosphatase (45-117) U/L Total Protein (6.4-8.2) gm/dl Albumin (3.4-5.0) gm/dl Globulin (2.5-4.0) gm/dl Albumin/Globulin Ratio (0.9-2) Blood Type O Positive Antibody Screen NEGATIVE 07/17/19 Range/Units 11:15 WBC (4.8-10.8) K/uL RBC (4.2-5.4) M/uL Hgb (12.0-16.0) g/dL Hct (37-47) % MCV (80-100) fL MCH (25-34) pg MCHC (32-36) g/dL RDW Std Deviation (36.4-46.3) fL RDW Coeff of Chriss (11.5-14.5) % Plt Count (130-400) K/uL MPV (7.4-10.4) fL Immature Gran % (Auto) % Neut % (Auto) % Lymph % (Auto) % [place] % (Auto) % Eos % (Auto) % Baso % (Auto) % Immature Gran # (Auto) (0.00-0.02) K/uL Neut # (Auto) (1.4-6.5) K/uL Lymph # (Auto) (1.2-3.4) K/uL [place] # (Auto) (0.11-0.59) K/uL Eos # (Auto) (0-0.5) K/uL Baso # (Auto) (0-0.2) K/uL PT (9.0-12.0) Seconds INR (0.9-1.1) APTT (21.0-31.0) Seconds PTT Ratio Sodium 139 (136-145) mmol/L Potassium 3.8 (3.5-5.1) mmol/L Chloride 104 (98-107) mmol/L Carbon Dioxide 29 (21-32) mmol/L Anion Gap 6.0 (3-11) BUN 28 H (7-18) mg/dl Creatinine 2.31 H (0.6-1.2) mg/dl Est Cr Clr Drug Dosing Not Reportable Est GFR ( Amer) 23.2 Est GFR (Non-Af Amer) 20.0 BUN/Creatinine Ratio 12.1 (10-20) Glucose 105 H (70-99) mg/dl Calcium 9.7 (8.5-10.1) mg/dl Total Bilirubin 0.5 (0.2-1) mg/dl AST 20 (15-37) U/L ALT 19 (12-78) U/L Alkaline Phosphatase 116 (45-117) U/L Total Protein 6.9 (6.4-8.2) gm/dl Albumin 3.2 L (3.4-5.0) gm/dl Globulin 3.7 (2.5-4.0) gm/dl Albumin/Globulin Ratio 0.9 (0.9-2) Blood Type Antibody Screen Imaging Data Radiologist's Impression: Radiology results as stated below per my review and the radiologist's interpretation: US pelvic complete, US transvaginal CLINICAL HISTORY: 73 years-old Female presenting with postmenopausal bleeding on eliquis, 3, history of C-sections. TECHNIQUE: Real-time grayscale and color and spectral Doppler ultrasound imaging of the pelvis was performed first using a transabdominal probe and subsequently transvaginal for better characterization. COMPARISON: CT from 12/19/2016. FINDINGS: TRANSABDOMINAL: Transabdominal imaging was performed for a minimally invasive evaluation and to ensure visualization of global pelvic findings. Bladder: Normal. Uterus: Significant heterogeneity of myometrium both and echotexture and echogenicity. Orientation: Anteverted. Size: 9.2 x 4.4 x 6.2 cm. Endometrial stripe thickness: Not well delineated. Endometrium: Heterogeneous. Cervix: Not well visualized and possibly distended with heterogeneous material. Right adnexa: Right ovary: Not visualized. Left adnexa: Left ovary: Not visualized. Other: No large volume free fluid. ENDOVAGINAL: Endovaginal imaging was subsequently performed, which was necessitated by incomplete visualization of the adnexa, inability or suboptimal ability to perform spectral Doppler interrogation of the ovaries, and suboptimal sonographic penetration of the deep pelvis. Limited views with endovaginal imaging were obtained due to patient discomfort. Uterus: Significantly heterogeneous lower uterine segment. Right adnexa: Right ovary: Not visualized. Left adnexa: Left ovary: Not visualized. Other: No large volume free fluid. IMPRESSION: 1. Significant heterogeneity of the uterus. Limited evaluation on endovaginal imaging given patient discomfort. This examination is inconclusive and could suggest both benign or malignant etiologies to this appearance. Differential diagnostic considerations affecting the myometrium, such as diffuse adenomyosis, or affecting the endometrium, such as endometrial hyperplasia or carcinoma, could be considered. Further evaluation with contrast enhanced pelvic MRI could be considered along with gynecologic consultation. 2. Nonvisualization of the ovaries. ACT 112: Negative or not required by law. Electronically signed by: Salomón Benson M.D. 07/17/2019 1:16 PM XR elbow RT min 3V routine CLINICAL HISTORY: 73 years-old Female presenting with pain and swelling of the right elbow over several days, no known injury, cellulitis in T2DM r/o osteomy elitis. TECHNIQUE: Frontal, oblique, and lateral views of the right elbow were obtained. COMPARISON: None. FINDINGS: Elbow joint congruent. No acute fracture or malalignment. Mild osteophytosis bot h medially and laterally. Enthesophyte at the insertion site of the triceps tendon. Questionable fracture of the enthesophyte. Significant overlying focal soft tissue swelling at the dorsal olecranon. There is also more diffuse subcutaneous edema and skin thickening of the distal upper arm and proximal forearm. No evidence of an elbow joint effusion. No osseous erosion or periosteal reaction. IMPRESSION: 1. Possible fracture of the enthesophyte at the insertion of the triceps tendon. 2. Focal soft tissue swelling at the dorsal olecranon suggests olecranon bursitis. This may be traumatic, infectious, or due to an inflammatory etiologies such as gout or CPPD. 3. Nonspecific diffuse subcutaneous edema and skin thickening. Cellulitis is not excluded. 4. No radiographic evidence of osteomyelitis. ACT 112: Negative or not required by law. Electronically signed by: Salomón Benson M.D. 07/17/2019 2:09 PM Blood Pressure Blood Pressure Findings: Elevated blood pressure Blood Pressure Disposition: further management by hospitalist FAREED Narrative Patient comes in as described above. She had vaginal bleeding which started last night. She is on a blood thinner with apixaban. She is on this for chronic A. fib. She does have valvular heart disease but had a porcine valve replacement. She has had no history of DVT or PE. She has had vaginal bleeding twice before and has been evaluated and said they found nothing according to the patient. She also has bursitis of the olecranon in the right arm. This is been seen in the office twice recently by her doctor who on Friday gave her a shot of Rocephin and added Augmentin to Bactrim and told her to follow-up in the next 48 hours if not better. I did review the medical records from her visit at [facility]. She continues to have pain and swelling the family does not feel it is gotten any better. she has no fever or chills. IV access established blood work was obtained. she has no fever or white count however the redness and swelling and pain have not improved so I am concerned that this is outpatient failure at this point. We did address her vaginal bleeding as well she has a stable hemoglobin. Her ultrasound is very limited and she will need further gynecologic work-up for this. I do think she should be admitted/observe for IV antibiotics and further treatment and evaluation. We have consulted the hospitalist for these measures. Impression & Plan Olecranon bursitis of right elbow, Vaginal bleeding, Current use of snf anticoagulation, Failure of outpatient treatment Discharge Plan Visit Data Chief Complaint: Vaginal Bleeding Stated Complaint: VAGINAL BLEEDING,STOMACH PAIN,BACK PAIN ED Provider: Loco Riggins ED Midlevel Provider: Nathalia Griffin Discharge Problem: Olecranon bursitis of right elbow, Vaginal bleeding, Current use of snf anticoagulation, Failure of outpatient treatment Patient Disposition: Being Evaluated by Hospitalist Forms Stand Alone Forms: [facility], Important Visit Information Prescriptions Prescriptions: No Action (DME) Accu-Chek Imani Plus test strp Strip See Rx Instructions .ROUTE .MEDSUPPLY Qty: 100 RF: 3 (DME) blood-glucose meter [Accu-Chek Imani Plus Meter] Misc See Rx Instructions .ROUTE .MEDSUPPLY Qty: 1 RF: 0 (DME) lancets [Accu-Chek Softclix Lancets] Misc See Rx Instructions .ROUTE .MEDSUPPLY Qty: 100 RF: 3 furosemide 40 mg tablet 40 mg PO QAM Qty: 90 RF: 2 sulfamethoxazole-trimethoprim [Bactrim DS] 800-160 mg tablet 0.5 tab PO BID Qty: 7 RF: 0 Entresto 24-26 mg tablet 1 tab PO BID Qty: 60 RF: 0 Lantus Solostar U-100 Insulin 100 unit/mL (3 mL) insulin pen See Rx Instructions SUBCUT BID RF: 0 Eliquis 2.5 mg tablet 2.5 mg PO BID Qty: 60 RF: 5 ranitidine HCl [Acid Delivery Technician (ranitidine)] 150 mg tablet 150 mg PO BID PRN (Reason: heartburn) Qty: 60 RF: 2 albuterol sulfate [Ventolin HFA] 90 mcg/actuation HFA aerosol inhaler 2 puff INHALATION Q4H PRN (Reason: sob) Qty: 8 RF: 0 ondansetron HCl [Zofran] 4 mg tablet 4 mg PO Q8H PRN (Reason: nausea and vomiting) Qty: 20 RF: 0 albuterol sulfate 2.5 mg /3 mL (0.083 %) solution for nebulization 2.5 mg INHALATION Q4H PRN (Reason: sob/wheezing) Qty: 75 RF: 4 metoprolol succinate 50 mg tablet extended release 24 hr 50 mg PO DAILY Qty: 30 RF: 5 ketoconazole 2 % cream 1 applic TOPICAL BID PRN (Reason: Unknown) Qty: 30 RF: 3 amoxicillin-pot clavulanate [Augmentin] 875-125 mg tablet 1 tab PO BID Qty: 20 RF: 0 fluticasone propion-salmeterol [Advair Diskus] 500-50 mcg/dose Blister With Device 1 inh INHALATION BID RF: 0 carvedilol 25 mg Tablet 25 mg PO BID RF: 0 atorvastatin 40 mg Tablet 40 mg PO QPM RF: 0 cholecalciferol (vitamin D3) [Vitamin D3] 1,000 unit Capsule 1,000 unit PO DAILY RF: 0 ascorbic acid (vitamin C) [Vitamin C] 1,000 mg Tablet Extended Release 1,000 mg PO Q12H RF: 0 Combivent Respimat 20-100 mcg/actuation Mist 1 puff INHALATION QID RF: 0 diltiazem HCl 180 mg Capsule,Extended Release 24 Hr 180 mg PO DAILY RF: 0 escitalopram oxalate 20 mg Tablet 20 mg PO DAILY RF: 0 Referrals Referrals: Aimee Crook CRNP [Primary Care Provider] - The scribe's documentation has been prepared under my direction and personally reviewed by me in its entirety. I confirm that the note above accurately reflects all work, treatment, procedures, and medical decision making performed by me.
--- NOTE | 2019-07-17 14:10 | XRay Report ---
XR elbow RT min 3V routine CLINICAL HISTORY: 73 years-old Female presenting with pain and swelling of the right elbow over sever al days, no known injury, cellulitis in T2DM r/o osteomyelitis. TECHNIQUE: Frontal, oblique, and lateral views of the right elbow were obtained. COMPARISON: None. FINDINGS: Elbow joint congruent. No acute fracture or malalignment. Mild osteophytosis both medially and latera lly. Enthesophyte at the insertion site of the triceps tendon. Questionable fracture of the enthesoph yte. Significant overlying focal soft tissue swelling at the dorsal olecranon. There is also more dif fuse subcutaneous edema and skin thickening of the distal upper arm and proximal forearm. No evidence of an elbow joint effusion. No osseous erosion or periosteal reaction. IMPRESSION: 1. Possible fracture of the enthesophyte at the insertion of the triceps tendon. 2. Focal soft tissue swelling at the dorsal olecranon suggests olecranon bursitis. This may be traum atic, infectious, or due to an inflammatory etiologies such as gout or CPPD. 3. Nonspecific diffuse subcutaneous edema and skin thickening. Cellulitis is not excluded. 4. No radiographic evidence of osteomyelitis. ACT 112: Negative or not required by law. Electronically signed by: Salomón Benson M.D. 07/17/2019 2:09 PM
--- NOTE | 2019-07-17 14:22 | History & Physical Report ---
Date of Service July 17, 2019 Assessment & Plan (1) Olecranon bursitis of right elbow: Admits to [facility] on telemetry, Vital signs every 4 hours, Blood cultures pending, Monitor electrolytes and replenish BNP pending Started daptomycin 275 mg daily IV dose renally adjusted, Orthopedic consult pending, DVT prophylaxis patient is on Eliquis for A. fib's 2.5 mg p.o. twice daily, continue Eliquis, high chads score Full code Present on Admission?: Yes (2) Dysfunctional uterine bleeding: Transvaginal sonogram result inconclusive in regards of significant head to the density of the uterus. Biopsy of the endometrium will be helpful to determine the nature of disease. Consult for [employer]RO[employer]ER. Monitor dysfunctional uterine bleeding with daily CBCs. H&H stable. If hemoglobin drops below 7 or below 8 and patient asymptomatic would recommend 1 unit of blood transfusion. Present on Admission?: Yes (3) Cognitive changes: Patient has mild to moderate cognitive changes. Continue daily orienting patient in time space and surrounding. Present on Admission?: Yes (4) Severe obesity: Patient advised to try to lose weight with diet, exercises and lifestyle changes. Present on Admission?: Yes (5) AF (paroxysmal atrial fibrillation): Continue monitoring. Continue apixaban 2.5 mg p.o. twice daily. Patient has high Jaun score. Present on Admission?: Yes (6) Biventricular ICD (implantable cardioverter-defibrillator) in place: No issues at this time continue monitoring Present on Admission?: Yes (7) CHF (congestive heart failure), NYHA class III: Patient does not appear to be in acute exacerbation. Continue home medication carvedilol 25 mg p.o. twice daily, apixaban 2.5 mg p.o. twice daily, atorvastatin 40 mg p.o. nightly p.m., furosemide 40 mg p.o. every morning, diltiazem 180 mg p.o. daily metoprolol succinate 50 mg p.o. daily, sacubitril/valsartan 26 mg p.o. twice daily. Present on Admission?: Yes (8) CVA (cerebral vascular accident): Stable continue monitoring with no issues at this time. Present on Admission?: Yes (9) Cardiomyopathy: As discussed above Present on Admission?: Yes (10) Coronary artery disease: As discussed above, continue home medicine Present on Admission?: Yes (11) Depression: Patient appears to be stable. She states that her mother is on hospice but she is coping well with her issues. Continue escitalopram 20 mg p.o. daily Present on Admission?: Yes (12) Hyperlipidemia: Fasting lipid panel pending, continue atorvastatin 40 mg p.o. every afternoon. Present on Admission?: Yes (13) Hypertension: Continue home medicine as discussed above. Present on Admission?: Yes (14) Obstructive sleep apnea: Patient is on nasal cannula 2 L 24/7 most of the time. Continue monitoring and continue supplemental oxygen. Present on Admission?: Yes (15) Diabetes mellitus type 2 in obese: Glycemic control with sliding scale insulin and insulin glargine 17 units twice daily. CF 25, carbs 8, continue monitoring Accu-Cheks before meals and at bedtime. Present on Admission?: Yes (16) Asthma: Stable, continue albuterol 2.5 mg inhalation every 4 hours as needed, for shortness of breath, albuterol sulfate 90 MCG's HFA 2 puffs inhalation every 4 hours as needed, fluticasone propion salmeterol 1 inhalation twice daily. Present on Admission?: Yes History of Present Illness Chief Complaint: Right elbow cellulitis, Primary Care Provider: COOPER Cuevas The patient is a 73 years old female with a past medical history of congestive heart failure, diabetes mellitus type 2, severe obesity, DUB, paroxysmal atrial fibrillation apixaban, biventricular ICD defibrillator, coronary artery disease, cardiomyopathy, depression, who presents to the emergency room with intermittent vaginal bleeding started last night and swelling of the right elbow for several weeks. In regard of intermittent vaginal bleeding patient is forced that that has been ongoing for some time and that she had kidney stones and stents placed in the past. In regard of her elbow patient states that she was trying to treated as an outpatient and her PCP prescribed Augmentin and Bactrim DS for 10 days but this was not improving. Patient still did not complete her therapy and there are several tablets left. Patient states that she uses 2 L of oxygen at home pretty much 24/7. Patient denies fever, chills, chest pain, shortness of breath, frequency, urgency. Labs are reviewed: WBCs 10.57, hemoglobin 12.3, hematocrit 38.3, platelets 217, PT 11.9, INR 1.1, APTT 27.9, sodium 139, potassium 3.8, chloride 104, carbon dioxide 29, anion gap 6, BUN 28, creatinine 2.31 at her baseline, patient creatinine is ranging from 1.71 to 1.36, glucose 105, calcium 9.7, total bilirubin 0.5, AST 20, ALT 19, alkaline phosphatase 116, BNP pending, total protein 6.9, albumin 3.2. Right elbow x-rays:Possible fracture of the enthesophyte at the insertion of the triceps tendon.Focal soft tissue swelling at the dorsal olecranon suggests olecranon bursitis. This may be traumatic, infectious, or due to an inflammatory etiologies such as gout or CPPD.Nonspecific diffuse subcutaneous edema and skin thickening. Cellulitis is not excluded.No radiographic evidence of osteomyelitis. Ultrasound of the uterus shows significant hydro-density of the uterus. Limited evaluation on endovaginal imaging given patient doing discomfort. The examination is inconclusive and could suggest both benign or malignant etiology to this appearance. Differential diagnostic consideration affecting the myometrium, such as diffuse adeno myosis, or affecting the endometrium, such as endometrial hyperplasia or carcinoma could be considered. Further evaluation with contrast enhanced pelvic MRI could be considered along with gynecological consultation. The decision was made to observe at [facility] telemetry patient for severe olecranon bursitis, dysfunctional uterine bleeding, and for further evaluation and exclusion of endometrial cancer. Allergies Allergy/AdvReac Type Severity Reaction Status Date / Time aspirin Allergy Intermediate HIVES Verified 07/17/19 10:36 Iodinated Contrast Media Allergy Intermediate HIVES - Verified 07/17/19 10:36 MRI DYE levofloxacin Allergy Intermediate HIVES, Verified 07/17/19 10:36 VEIN IRRITATION W/IV LEVAQUIN erythromycin base Allergy Unknown UNKNOWN Verified 07/17/19 10:36 Home Medications Home Medications Medication Instructions Recorded Confirmed Type ascorbic acid (vitamin C) [Vitamin 1,000 mg PO Q12H 05/18/18 07/17/19 History C] atorvastatin 40 mg PO QPM 05/18/18 07/17/19 History carvedilol 25 mg PO BID 05/18/18 07/17/19 History cholecalciferol (vitamin D3) 1,000 unit PO DAILY 05/18/18 07/17/19 History [Vitamin D3] fluticasone propion-salmeterol 1 inh INHALATION BID 05/18/18 07/17/19 History [Advair Diskus] Combivent Respimat 1 puff INHALATION QID 05/19/18 07/17/19 History diltiazem HCl 180 mg PO DAILY 05/19/18 07/17/19 History escitalopram oxalate 20 mg PO DAILY 05/19/18 07/17/19 History albuterol sulfate 2.5 mg INHALATION Q4H PRN #75 ml 05/20/19 07/17/19 Rx albuterol sulfate 90 mcg/actuation 2 puff INHALATION Q4H PRN #8 gm 05/20/19 07/17/19 Rx aerosol inhaler apixaban 2.5 mg tablet 2.5 mg PO BID #60 tab 05/20/19 07/17/19 Rx ketoconazole 2 % topical cream 1 applic TOPICAL BID PRN #30 gm 05/20/19 07/17/19 Rx metoprolol succinate 50 mg 50 mg PO DAILY #30 tab 05/20/19 07/17/19 Rx tablet,extended release 24 hr ondansetron HCl 4 mg tablet 4 mg PO Q8H PRN #20 tab 05/20/19 07/17/19 Rx ranitidine HCl 150 mg tablet 150 mg PO BID PRN #60 tab 05/20/19 07/17/19 Rx blood sugar diagnostic #100 ea 06/03/19 07/17/19 Rx blood-glucose meter #1 ea 06/03/19 07/17/19 Rx lancets #100 ea 06/03/19 07/17/19 Rx furosemide 40 mg tablet 40 mg PO QAM #90 tab 06/29/19 07/17/19 Rx insulin glargine 100 unit/mL (3 See Rx Instructions SUBCUT BID ml 07/08/19 07/17/19 History mL) subcutaneous pen sulfamethoxazole 800 0.5 tab PO BID #7 tab 07/08/19 07/17/19 Rx mg-trimethoprim 160 mg tablet sacubitril 24 mg-valsartan 26 mg 1 tab PO BID #60 tab 07/09/19 07/17/19 Rx tablet amoxicillin 875 mg-potassium 1 tab PO BID #20 tab 07/13/19 07/17/19 Rx clavulanate 125 mg tablet Past Med/Surg History Medical History AF (paroxysmal atrial fibrillation) (Chronic) Anticoagulated (Chronic) Aortic valve disorder (Chronic) Asthma (Chronic) Biventricular ICD (implantable cardioverter-defibrillator) in place (Chronic) Cardiomyopathy (Resolved 07/12/11) Cellulitis (Acute) CHF (congestive heart failure), NYHA class III (Chronic) Chronic kidney disease, stage 4 (severe) (Chronic) Cognitive changes COPD with acute exacerbation (Resolved) Coronary artery disease (Chronic 11/23/10) CVA (cerebral vascular accident) (Resolved 11/23/10) Depression (Chronic) Diabetes (Chronic) Diabetes mellitus type 2 in nonobese (Chronic 11/23/10) Hematuria History of - coronary artery bypass grafting (Resolved 11/23/10) Hyperlipidemia (Chronic 11/23/10) Hypertension (Chronic) 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 (Resolved 11/23/10) Mild acid reflux (Resolved) Obstructive sleep apnea (Chronic) Olecranon bursitis of right elbow Repair of aortic valve with tissue graft (Resolved 11/23/10) Urge incontinence of urine (Chronic) Vitamin D deficiency (Chronic) Surgical History H/O aortic valve replacement (Resolved) Porcine AVR and aortic root graft for proximal aortic dissection 2003 History of aortic aneurysm repair (Resolved) Hx of CABG CABG x1 (PACHECO TO LAD for LV hypokinesis-not CAD-- Done at the time of AVR and aortic root graft) 2002 Family History Mother Diabetes Myocardial infarction Sister Diabetes Son Hypertension Denies family history of Ovarian cancer Prostate cancer Breast cancer Lung cancer Colorectal cancer Cancer Social History Preferred Language: Kazakh Communication Ability: Effective 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 Beliefs That Will Affect Care: None marital status: / Current Living Situation: Family current occupational status: disabled Other Information That Helps Us Care for You: No Feels Safe at Home: Yes Safety Concerns: Feels Safe At This Time Smoking Status: Never smoker Do You Dip or Chew Tobacco: No ; Second Hand Exposure: No ; Tobacco Cessation Education Requested by Patient: No Hx Alcohol Use: No Hx Substance Use: No caffeine: Yes (soda) Dental Care, Regularly: No Physical Activity Frequency: Daily Seatbelt Use: sometimes Sunscreen Use: No Review of Systems Review of Systems: All systems reviewed & are unremarkable except as noted in HPI & below Physical Exam Constitutional: WD/WN, vitals as above well developed, + ill appearing and + morbidly obese Eyes: PERRL ENMT: Ears: + hearing impairment Neck: trachea midline, no thyromegaly Respiratory: + respiratory distress, + labored breathing, + uses accessory muscles and + hyperresonance to percussion Auscultation: + wheezes Cardiovascular: Rate/Rhythm: + irregularly irregular Heart Sounds: normal S1, normal S2 and + murmur Vessels: dorsalis pedis pulses present Paced rhythm Gastrointestinal (Abdomen): normal bowel sounds, soft, nontender, no hepatosplenomegaly Musculoskeletal: no cyanosis or clubbing, extremities motor strength 5/5 Skin: no rashes, warm and dry Neurologic: patellar DTR's 2+ bilat, sensation intact Psychiatric: A+Ox3, euthymic affect Lymphatic: no cervical or axillary lymphadenopathy Results & Data Vital Signs (Past 12 Hours) Vital Signs Temp Pulse Pulse Resp BP BP Pulse Ox 07/17/19 12:00 65 22 132/77 94 07/17/19 11:49 76 L 07/17/19 11:47 70 17 134/76 90 07/17/19 10:35 60 24 129/71 89 L 07/17/19 10:09 67 24 129/71 89 L 07/17/19 09:11 37.0 C 84 18 147/73 H 92 Code Status & VTE Plan Code Status Full code VTE Prophylaxis Plan VTE Prophylaxis will be ordered: Yes PG Care Time/CCT Total # of Minutes Spent Total Time Spent with Patient: Total time spent is greater than 50% in coordination of care (as documented) at patient's floor/unit and/or counseling patient: Coding Level of Care Code 60848 Initial Inpt Care Lvl 3 Diagnoses Olecranon bursitis of right elbow M70.21 Dysfunctional uterine bleeding N93.8 Cognitive changes R41.89 Severe obesity E66.01 AF (paroxysmal atrial fibrillation) I48.0 Biventricular ICD (implantable cardioverter-defibrillator) in place Z95.810 CHF (congestive heart failure), NYHA class III I50.23 Congestive heart failure type: systolic Congestive heart failure chronicity: acute on chronic CVA (cerebral vascular accident) I63.9 Cardiomyopathy I42.9 Coronary artery disease I25.10 Coronary Disease-Associated Artery/Lesion type: [place] artery [place] vs. transplanted heart: [place] heart Associated angina: without angina Depression F33.9 Depression Type: major depressive disorder Major depression recurrence: recurrent Active/Remission status: remission status unspecified Hyperlipidemia E78.5 Hyperlipidemia type: unspecified Hypertension I10 Hypertension type: essential hypertension Obstructive sleep apnea G47.33 Diabetes mellitus type 2 in obese E11.69; E66.9 Asthma J45.909 (1) CHF (congestive heart failure), NYHA class III Congestive heart failure type: systolic Congestive heart failure chronicity: acute on chronic Qualified Code(s): I50.23 - Acute on chronic systolic (congestive) heart failure (2) Coronary artery disease Coronary Disease-Associated Artery/Lesion type: [place] artery [place] vs. transplanted heart: [place] heart Associated angina: without angina Qualified Code(s): I25.10 - Atherosclerotic heart disease of [place] coronary artery without angina pectoris (3) Depression Depression Type: major depressive disorder Major depression recurrence: recurrent Active/Remission status: remission status unspecified Qualified Code(s): F33.9 - Major depressive disorder, recurrent, unspecified (4) Hyperlipidemia Hyperlipidemia type: unspecified Qualified Code(s): E78.5 - Hyperlipidemia, unspecified (5) Hypertension Hypertension type: essential hypertension Qualified Code(s): I10 - Essential (primary) hypertension
[2019-07-17] MEDS ORDERED: GLUCAGON FOR INJ 1 MG VIAL SQ PRN (15:37)
[2019-07-17] MEDS ORDERED: ALBUTEROL HFA 8 GM INHALER INH PRN (15:37)
[2019-07-17] MEDS ORDERED: ALUMINUM/MAGNESIUM SUSP 30 ML UDC PO PRN (15:37)
[2019-07-17] MEDS ORDERED: CARBOHYDRATES FOR HYPOGLYCEMIA PO PRN (15:37)
[2019-07-17] MEDS ORDERED: POLYETHYLENE (MIRALAX) 17 GM PACK PO PRN (15:37)
[2019-07-17] MEDS ORDERED: GLUCOSE 40% GEL 15 GM TUBE PO PRN (15:37)
[2019-07-17] MEDS ORDERED: GLUCOSE 10 TABS/TUBE PO PRN (15:37)
[2019-07-17] MEDS ORDERED: MAGNESIUM HYDROXIDE SUSP 30 ML UDC PO PRN (15:37)
[2019-07-17] MEDS ORDERED: DEXTROSE 50% 50 ML SYRINGE IV PRN (15:37)
[2019-07-17] MEDS ORDERED: KETOCONAZOLE 2% CR 15 GM TUBE EXT PRN (15:37)
[2019-07-17] MEDS: DAPTOmycin 400 MG in SYRINGE 0 ML IV SCH (17:25)
[2019-07-17] MEDS: IPRATROPIUM BROMIDE/ALBUTEROL respimat INH INH SCH ×2 (17:27→20:57)
[2019-07-17] MEDS: INSULIN ASPART 100 UNITS/ML 3 ML PEN SC SCH ×2 (17:28→20:41)
--- NOTE | 2019-07-17 18:22 | OB/GYN Consultation ---
Date of Consultation July 17, 2019 Assessment & Plan (1) Post-menopausal bleeding: -The patient has not been seen in our office for the last 10 years. -Unclear if she has been evaluated by gynecology in that same period of time -Pelvic ultrasound is reviewed. Very nonspecific with inability to determine thickness of endometrial lining -Endometrial biopsy done here and sent for pathological evaluation -A copious amount of tissue was removed on biopsy -Very high suspicion for endometrial carcinoma -If biopsy is positive for endometrial CA, the patient will need to follow-up with [facility] at a tertiary care center -This can be done as an outpatient and does not require transport to a tertiary care center -We will continue to follow along during patient's hospitalization -Biopsy results will be relayed by gynecology to the patient -All questions answered of the patient History of Present Illness Reason for Consultation: Postmenopausal bleeding Attending Physician: Anais Foley MD History of Present Illness The patient is a 73-year-old 3 para 3 post menopausal female who I have been asked to see in consultation for postmenopausal bleeding. Patient presented to the emergency room for evaluation of the bleeding and some elbow pain. Apparently she has been admitted to the hospitalist service because of her elbow. Patient states that she has been having this bleeding for some time. She states that she has been evaluated previously but they were unable to find anything. When questioned as to what inker saw the patient she could not give me a name. The patient is chronically anticoagulated because of a cardiac history. Patient states that she had 3 pregnancies that were all deliveries by section. Patient states that she went through them menopause uneventfully approximately 25 years ago. When trying to be specific as to how long the patient has been having the bleeding she cannot tell me. Allergies Allergy/AdvReac Type Severity Reaction Status Date / Time aspirin Allergy Intermediate HIVES Verified 07/17/19 10:36 Iodinated Contrast Media Allergy Intermediate HIVES - Verified 07/17/19 10:36 MRI DYE levofloxacin Allergy Intermediate HIVES, Verified 07/17/19 10:36 VEIN IRRITATION W/IV LEVAQUIN erythromycin base Allergy Unknown UNKNOWN Verified 07/17/19 10:36 Home Medications Home Medications Medication Instructions Recorded Confirmed Type ascorbic acid (vitamin C) [Vitamin 1,000 mg PO Q12H 05/18/18 07/17/19 History C] atorvastatin 40 mg PO QPM 05/18/18 07/17/19 History carvedilol 25 mg PO BID 05/18/18 07/17/19 History cholecalciferol (vitamin D3) 1,000 unit PO DAILY 05/18/18 07/17/19 History [Vitamin D3] fluticasone propion-salmeterol 1 inh INHALATION BID 05/18/18 07/17/19 History [Advair Diskus] Combivent Respimat 1 puff INHALATION QID 05/19/18 07/17/19 History diltiazem HCl 180 mg PO DAILY 05/19/18 07/17/19 History escitalopram oxalate 20 mg PO DAILY 05/19/18 07/17/19 History albuterol sulfate 2.5 mg INHALATION Q4H PRN #75 ml 05/20/19 07/17/19 Rx albuterol sulfate 90 mcg/actuation 2 puff INHALATION Q4H PRN #8 gm 05/20/19 07/17/19 Rx aerosol inhaler apixaban 2.5 mg tablet 2.5 mg PO BID #60 tab 05/20/19 07/17/19 Rx ketoconazole 2 % topical cream 1 applic TOPICAL BID PRN #30 gm 05/20/19 07/17/19 Rx metoprolol succinate 50 mg 50 mg PO DAILY #30 tab 05/20/19 07/17/19 Rx tablet,extended release 24 hr ondansetron HCl 4 mg tablet 4 mg PO Q8H PRN #20 tab 05/20/19 07/17/19 Rx ranitidine HCl 150 mg tablet 150 mg PO BID PRN #60 tab 05/20/19 07/17/19 Rx blood sugar diagnostic #100 ea 06/03/19 07/17/19 Rx blood-glucose meter #1 ea 06/03/19 07/17/19 Rx lancets #100 ea 06/03/19 07/17/19 Rx furosemide 40 mg tablet 40 mg PO QAM #90 tab 06/29/19 07/17/19 Rx insulin glargine 100 unit/mL (3 See Rx Instructions SUBCUT BID ml 07/08/19 07/17/19 History mL) subcutaneous pen sulfamethoxazole 800 0.5 tab PO BID #7 tab 07/08/19 07/17/19 Rx mg-trimethoprim 160 mg tablet sacubitril 24 mg-valsartan 26 mg 1 tab PO BID #60 tab 07/09/19 07/17/19 Rx tablet amoxicillin 875 mg-potassium 1 tab PO BID #20 tab 07/13/19 07/17/19 Rx clavulanate 125 mg tablet Patient History Medical History AF (paroxysmal atrial fibrillation) (Chronic) Anticoagulated (Chronic) Aortic valve disorder (Chronic) Asthma (Chronic) Biventricular ICD (implantable cardioverter-defibrillator) in place (Chronic) Cardiomyopathy (Resolved 07/12/11) Cellulitis (Acute) CHF (congestive heart failure), NYHA class III (Chronic) Chronic kidney disease, stage 4 (severe) (Chronic) Cognitive changes COPD with acute exacerbation (Resolved) Coronary artery disease (Chronic 11/23/10) CVA (cerebral vascular accident) (Resolved 11/23/10) Depression (Chronic) Diabetes (Chronic) Diabetes mellitus type 2 in nonobese (Chronic 11/23/10) Hematuria History of - coronary artery bypass grafting (Resolved 11/23/10) Hyperlipidemia (Chronic 11/23/10) Hypertension (Chronic) 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 (Resolved 11/23/10) Mild acid reflux (Resolved) Obstructive sleep apnea (Chronic) Olecranon bursitis of right elbow Repair of aortic valve with tissue graft (Resolved 11/23/10) Urge incontinence of urine (Chronic) Vitamin D deficiency (Chronic) Surgical History H/O aortic valve replacement (Resolved) Porcine AVR and aortic root graft for proximal aortic dissection 2003 History of aortic aneurysm repair (Resolved) Hx of CABG CABG x1 (PACHECO TO LAD for LV hypokinesis-not CAD-- Done at the time of AVR and aortic root graft) 2002 Family History Mother Diabetes Myocardial infarction Sister Diabetes Son Hypertension Denies family history of Ovarian cancer Prostate cancer Breast cancer Lung cancer Colorectal cancer Cancer Social History Preferred Language: Occitan Communication Ability: Effective Therapy Aide Required: No Beliefs That Will Affect Care: None marital status: / Current Living Situation: Family current occupational status: disabled Feels Safe at Home: Yes Smoking Status: Never smoker Second Hand Exposure: No ; Hx Alcohol Use: No Hx Substance Use: No caffeine: Yes (soda) Dental Care, Regularly: No Physical Activity Frequency: Daily Seatbelt Use: sometimes Sunscreen Use: No Physical Exam Constitutional: WD/WN, vitals as above Gastrointestinal (Abdomen): normal bowel sounds, soft, nontender, no hepatosplenomegaly Inspection/Auscultation: + abdominal surgical scar Psychiatric: A+Ox3, euthymic affect Genitourinary: + abnormal external appearance (Atrophic, bloodstained external genitalia) Speculum/Bimanual Exam: + atrophic vaginal mucosa and + vaginal bleeding; + abnormal appearance of the cervix (pap smear collected, atrophic in appearance) and normal uterine size (Not palpable secondary to patient habitus) Procedure note: After obtaining verbal consent the patient is placed in a dorsolithotomy position. Cervix is visualized. Active bleeding noted from the cervical loss. ThinPrep Pap smear performed. Single-tooth tenaculum was used to grasp the anterior lip of the cervix. Biopsy Pipelle inserted into the uterus. Uterus sounded to 10 cm. Copious amount of tissue was removed with 4 passes of the Pipelle and sent for pathological evaluation. Patient tolerated the procedure well. Lymphatic: no inguinal lymphadenopathy Results & Data Vital Signs (Past 12 Hours) Vital Signs Temp Pulse Pulse Resp BP BP Pulse Ox 07/17/19 16:27 69 07/17/19 15:36 98.1 F 76 18 118/75 90 07/17/19 15:00 62 24 127/57 L 97 07/17/19 14:30 72 17 94 07/17/19 14:01 68 95 07/17/19 14:00 68 130/75 94 07/17/19 13:31 60 16 92 07/17/19 13:30 63 18 123/70 94 07/17/19 13:01 60 16 95 07/17/19 13:00 59 L 20 120/69 93 07/17/19 12:55 65 22 115/64 95 07/17/19 12:53 73 11 L 07/17/19 12:00 65 22 132/77 94 07/17/19 11:49 76 L 07/17/19 11:47 70 17 134/76 90 07/17/19 10:35 60 24 129/71 89 L 07/17/19 10:09 67 24 129/71 89 L 07/17/19 09:11 98.6 F 84 18 147/73 H 92 PG Care Time/CCT Total # of Minutes Spent Total Time Spent with Patient: Total time spent is greater than 50% in coordination of care (as documented) at patient's floor/unit and/or counseling patient: Coding Level of Care Code 67369 Inpt Consult Level 3 Diagnoses Post-menopausal bleeding N95.0 CPT Codes Endometrial Biopsy - [id number] ([id number])
[2019-07-17] MEDS: HYDROmorphone INJ 0.5 MG/0.5 ML SYR IV PRN (18:33)
[2019-07-17] MEDS ORDERED: MICONAZOLE NITRATE POWDER 43 GM EXT PRN (18:44)
[2019-07-17] MEDS: INSULIN GLARGINE SOLOSTAR 100 UNITS/ML 3 ML PEN SQ SCH (20:40)
[2019-07-17] MEDS: APIXABAN 2.5 MG TAB PO SCH (20:57)
[2019-07-17] MEDS: SACUBITRIL-VALSARTAN 24-26 MG TAB PO SCH (20:57)
[2019-07-17] MEDS: carvediloL 25 MG TAB PO SCH (20:58)
[2019-07-17] MEDS: ASCORBIC ACID 500 MG TAB PO SCH (20:59)
[2019-07-17] MEDS ORDERED: ATORVASTATIN 40 MG TAB PO SCH (21:00)
[2019-07-18] MEDS: ACETAMINOPHEN 325 MG TAB PO PRN ×2 (04:08→17:49)
[2019-07-18 06:07] LABS: Basophils # (auto) 0.02 K/uL (0-0.2); Basophils % (auto) 0.2 %; Eosinophils # (auto) 0.31 K/uL (0-0.5); Eosinophils % (auto) 3.3 %; Hematocrit (blood only) 35.1 % (37-47); Hemoglobin 10.9 g/dL (12.0-16.0); Immature Granulocytes # (auto) 0.02 K/uL (0.00-0.02); Immature Granulocytes % (auto) 0.2 %; Mean Corpuscular Hemoglobin 27.9 pg (25-34); Mean Corpuscular Hgb Conc 31.1 g/dL (32-36); Mean Corpuscular Volume 89.8 fL (80-100); Mean Platelet Volume 9.3 fL (7.4-10.4); Monocytes # (auto) 0.66 K/uL (0.11-0.59); Monocytes % (auto) 7.1 %; Neutrophils # (auto) 6.92 K/uL (1.4-6.5); Neutrophils % (auto) 74.2 %; Platelet Count 193 K/uL (130-400); RDW Coefficient of Variation 15.2 % (11.5-14.5); RDW Standard Deviation 49.9 fL (36.4-46.3); Red Blood Count 3.91 M/uL (4.2-5.4); White Blood Count 9.33 K/uL (4.8-10.8)
[2019-07-18 06:52] LABS: Albumin Globulin Ratio 0.8 (0.9-2); Albumin Level 2.6 gm/dl (3.4-5.0); BUN Creatinine Ratio 11.2 (10-20); Bilirubin,Total 0.4 mg/dl (0.2-1); Creatinine Clr Calc Pharmacy 18.4 ml/min; Est GFR (African American) 18.7; Est GFR (Non-African American) 16.1; Globulin 3.3 gm/dl (2.5-4.0); Potassium 4.3 mmol/L (3.5-5.1); Total Protein 5.9 gm/dl (6.4-8.2)
[2019-07-18] MEDS: ASCORBIC ACID 500 MG TAB PO SCH ×2 (08:00→20:23)
[2019-07-18] MEDS: SACUBITRIL-VALSARTAN 24-26 MG TAB PO SCH (08:01)
[2019-07-18] MEDS: APIXABAN 2.5 MG TAB PO SCH ×2 (08:01→20:23)
[2019-07-18] MEDS: carvediloL 25 MG TAB PO SCH (08:01)
[2019-07-18] MEDS: IPRATROPIUM BROMIDE/ALBUTEROL respimat INH INH SCH ×4 (08:02→20:22)
[2019-07-18] MEDS: ESCITALOPRAM OXALATE 20 MG TAB PO SCH (08:02)
[2019-07-18] MEDS: FLUTICASONE/VILANTEROL 100/25MCG 14 PUFFS/INHALER INH SCH (08:02)
[2019-07-18] MEDS: CHOLECALCIFEROL 1,000 UNITS 25 MCG TAB PO SCH (08:02)
[2019-07-18] MEDS ORDERED: dilTIAZem ER 180 MG CAPCR PO SCH (09:00)
[2019-07-18] MEDS ORDERED: FUROSEMIDE 40 MG TAB PO SCH (09:00)
[2019-07-18] MEDS ORDERED: DAPTOmycin 500 MG VIAL IV SCH (09:00)
[2019-07-18] MEDS ORDERED: METOPROLOL SUCC 50MG EXT REL TAB PO SCH (09:00)
[2019-07-18] MEDS: INSULIN ASPART 100 UNITS/ML 3 ML PEN SC SCH ×4 (09:27→20:21)
[2019-07-18] MEDS: INSULIN GLARGINE SOLOSTAR 100 UNITS/ML 3 ML PEN SQ SCH ×2 (09:28→20:20)
[2019-07-18] MEDS: OXYCODONE HCL IR 5 MG TAB (IMMEDIATE RELEASE) PO PRN (09:32)
--- NOTE | 2019-07-18 11:45 | Gynecologic Progress Note ---
Date of Service July 18, 2019 Assessment & Plan (1) Post-menopausal bleeding: - clinically stable from [facility] [employer] [facility] - Pap/EMB will not be processes till 07/18 - again, if endometrial ca found, pt will need outpatient f/u with [facility] at tertiary care facility Admission and Anticipated Discharge Date Admission Date: July 17, 2019 Subjective Increased bleeding after bx Physical Exam Physical Exam: deferred Results & Data ([facility]) Vital Signs (Past 12 Hours) Vital Signs Temp Pulse Pulse Resp BP Pulse Ox 07/18/19 07:42 60 07/18/19 07:04 98.4 F 75 18 100/63 93 07/18/19 04:00 98.2 F 65 18 107/56 L 91 07/17/19 23:30 97.9 F 69 20 96/62 L 95 07/17/19 23:00 67 PG Care Time/CCT Total # of Minutes Spent Total Time Spent with Patient: Total time spent is greater than 50% in coordination of care (as documented) at patient's floor/unit and/or counseling patient: Coding Level of Care Code 55461 Subseq Hosp Care Lvl 1 Diagnoses Post-menopausal bleeding N95.0
[2019-07-18] MEDS: HYDROmorphone INJ 0.5 MG/0.5 ML SYR IV PRN (12:05)
[2019-07-18] MEDS ORDERED: CALCIUM GLUCONATE 10% 10 ML VIAL IV STA (15:00)
[2019-07-18] MEDS ORDERED: SODIUM CHLORIDE 0.9% 1000ML 500 ML IV ONE (15:00)
[2019-07-18] MEDS ORDERED: CALCIUM GLUCONATE 10% 2,000 MG in SODIUM CHLORIDE 0.9% 50 ML IV STA (15:02)
[2019-07-18] MEDS ORDERED: GLUCAGON 5 MG in SYRINGE 0 ML IV STA (15:07)
--- NOTE | 2019-07-18 15:08 | Hospitalist Progress Note ---
Date of Service July 18, 2019 Assessment & Plan (1) Hypotension: Notified at 2:45pm that the patient's BP was 70/60. Review of medications indicates she got metoprolol XL, carvedilol, Entresto, and diltiazem this morning with her AM meds. - Believe this to be iatrogenic/medication-induced. Sepsis appears unlikely given the mild, self-contained bursitis and no other source. No fever. WBC normal. - Will give 500 mL NSS bolus, calcium gluconate, and glucagon - Monitor BP. If no improvement, will consider temporary transfer to ICU (2) Olecranon bursitis of right elbow: Right elbow. Some pain with flexion/extension. No change in erythema. - Continue daptomycin - Orthopedic consult pending (3) Dysfunctional uterine bleeding: Transvaginal sonogram result inconclusive in regards of significant head to the density of the uterus. Biopsy of the endometrium was done on 07/16. - Pathology pending, but bi tester feel endometrial cancer is likely. Will need tertiary care for this if this is the case. - Hemoglobin still stable. - Monitor (4) CHF (congestive heart failure), NYHA class III: Chronic systolic heart failure with EF 20-25% in 04/2019. Patient does not appear to be in acute exacerbation. Per prior HF notes from [facility], her baseline weight is ~100 kgs. - Today (07/17) she is 94 kg, meaning she is down 6 kg. - Hold home medication carvedilol, diltiazem, metoprolol, and Entresto given her present hypotension (see top problem) - Hold home atorvastatin while on daptomycin - Getting 500 mL bolus right now for hypotension. Will be very conservative with IV fluids (5) AF (paroxysmal atrial fibrillation): EKG on admission shows a dual-paced rhythm. - Continue apixaban 2.5 mg p.o. twice daily. - Holding rate-control for present hypotension -> Will restart metoprolol cautiously after BP rebounds. (6) Biventricular ICD (implantable cardioverter-defibrillator) in place: EKG shows paced rhythm. - No issues at this time continue monitoring (7) CVA (cerebral vascular accident): No concern for stroke at this time. - Continue monitoring (8) Cognitive changes: Patient has mild to moderate cognitive changes per admitting provider's note. - Continue daily orienting patient in time space and surrounding. (9) Coronary artery disease: No chest pain. - Continue meds as above (10) Depression: Patient appears to be stable. She states that her mother is on hospice but she is coping well with her issues. - Continue escitalopram 20 mg p.o. daily (11) Hypertension: - Hold home medicine as discussed above. (12) Obstructive sleep apnea: Patient is on nasal cannula 2 L. - Continue monitoring and continue supplemental oxygen. (13) Diabetes mellitus type 2 in obese: A1c was 7.2% in 05/2019. - Continue glargine, but drop to 17 units daily (from home dosing of BID). - Sliding scale insulin - Low threshold to consult glycemic pharmacists if needed (14) Asthma: Stable; no report of shortness of breath today. - Continue home daily inhaler equivalent (Breo Ellipta on formulary) - Continue albuterol PRN (15) DVT prophylaxis: On apixaban for afib Admission and Anticipated Discharge Date Admission Date: July 17, 2019 Subjective Feeling tired. Otherwise no focal complaints. Reports no fevers/chills, chest pain, shortness of breath, abdominal pain, nausea, or vomiting. Physical Exam Constitutional: WD/WN, vitals as above Eyes: EOM intact bilaterally; no conjunctival abnormality ENMT: external ear and nose normal, oropharynx normal Neck: trachea midline, no thyromegaly normal visual inspection Respiratory: normal respiratory effort, lungs clear to auscultation no respiratory distress Cardiovascular: RRR, no murmur, no edema Gastrointestinal (Abdomen): Inspection/Auscultation: abdomen normal to inspection; abdomen not distended Musculoskeletal: no cyanosis or clubbing, extremities motor strength 5/5 Skin: no rashes, warm and dry Neurologic: moves all extremities and awake Psychiatric: Orientation: alert, oriented to person and cooperative Results & Data ([facility]) Vital Signs (Past 12 Hours) Vital Signs Temp Pulse Pulse Resp BP Pulse Ox 07/18/19 11:51 36.7 C 62 18 90/61 L 94 07/18/19 07:42 60 07/18/19 07:04 36.9 C 75 18 100/63 93 07/18/19 04:00 36.8 C 65 18 107/56 L 91 PG Care Time/CCT Total # of Minutes Spent Total Time Spent with Patient: Total time spent is greater than 50% in coordination of care (as documented) at patient's floor/unit and/or counseling patient: Critical Care Time: Yes Total Critical Care Time: 65 Total 65 minutes spent evaluating the patient, assessing her etiologies of her hypotension, discussing with the RN and pharmacists, and formulating plan to treat her hypotension. Coding Level of Care Code 82007 Subseq Hosp Care Lvl 3 Diagnoses Hypotension I95.9 Olecranon bursitis of right elbow M70.21 Dysfunctional uterine bleeding N93.8 CHF (congestive heart failure), NYHA class III I50.23 Congestive heart failure type: systolic Congestive heart failure chronicity: acute on chronic AF (paroxysmal atrial fibrillation) I48.0 Biventricular ICD (implantable cardioverter-defibrillator) in place Z95.810 CVA (cerebral vascular accident) I63.9 Cognitive changes R41.89 Coronary artery disease I25.10 Coronary Disease-Associated Artery/Lesion type: rosebud artery [place] vs. transplanted heart: rosebud heart Associated angina: without angina Depression F33.9 Depression Type: major depressive disorder Major depression recurrence: recurrent Active/Remission status: remission status unspecified Hypertension I10 Hypertension type: essential hypertension Obstructive sleep apnea G47.33 Diabetes mellitus type 2 in obese E11.69; E66.9 Asthma J45.909 DVT prophylaxis Z29.9 Additional Codes Critical Care Time - Critical Care Time: Yes ([id number]) (1) CHF (congestive heart failure), NYHA class III Congestive heart failure type: systolic Congestive heart failure chronicity: acute on chronic Qualified Code(s): I50.23 - Acute on chronic systolic (congestive) heart failure (2) Coronary artery disease Coronary Disease-Associated Artery/Lesion type: [place]bud artery [place] vs. transplanted heart: rosebud heart Associated angina: without angina Qualified Code(s): I25.10 - Atherosclerotic heart disease of rosebud coronary artery without angina pectoris (3) Depression Depression Type: major depressive disorder Major depression recurrence: recurrent Active/Remission status: remission status unspecified Qualified Code (s): F33.9 - Major depressive disorder, recurrent, unspecified (4) Hypertension Hypertension type: essential hypertension Qualified Code(s): I10 - Essential (primary) hypertension
--- NOTE | 2019-07-18 15:21 | Consultation Report ---
DATE OF CONSULTATION: 07/18/2019 PERTINENT HISTORY: This is a 73-year-old female seen at the request of Dr. Anais Foley for right elbow pain and swelling. The patient has had a week of pain and swelling in the right elbow. She had difficulty with lying the elbow on surfaces. Noticed this and was seen by her primary physician who then gave her an intramuscular injection of antibiotic and oral antibiotics. She failed to have any improvement, then presented to the Emergency Department yesterday where she was evaluated and noted to have cellulitis and was admitted for IV antibiotic therapy. Orthopedics was then consulted at that time. PAST MEDICAL HISTORY: Extensive with atrial fibrillation, chronic, paroxysmal, on chronic anticoagulation; aortic valve disorder; asthma, chronic; biventricular implantable cardioverter defibrillator in place; cardiomyopathy; cellulitis, acute; CHF, chronic, class III; chronic kidney disease stage IV; severe chronic cognitive changes; COPD with acute exacerbation; coronary artery disease, chronic; CVA, resolved, 11/23/2010; depression, chronic; diabetes, chronic, diabetes mellitus type 2 with obesity; hematuria; hyperlipidemia; hypertension; hypertensive heart and renal disease; acid reflux; acute olecranon bursitis; urinary incontinence; vitamin D deficiency. PAST SURGICAL HISTORY: History of aortic valve replacement, porcine AVR with aortic root graft with aortic dissection in 2002, history of aortic aneurysm repair, history of CABG x1, PACHECO to LAD for left ventricular hypokinesis, not CAD, at the same time of aortic valve replacement, biventricular ICD unit. ALLERGIES: ASPIRIN WITH HIVES, IODINATED CONTRAST MEDIA - HIVES, LEVOFLOXACIN - HIVES AND PHLEBITIS, ERYTHROMYCIN BASE - UNKNOWN. MEDICATIONS: Please see the extensive list provided in the medical record. SOCIAL HISTORY: She is . She is disabled. She does not smoke. Denies tobacco, alcohol or drug use. She lives with family. PHYSICAL EXAMINATION: GENERAL: This is an obese 73-year-old female, sitting supine in her hospital room bed. She is alert and oriented x3. Speech clear and fluent. Affect is appropriate. EXTREMITIES: Examination of the right upper extremity demonstrates edema and local erythema around the right elbow and olecranon bursa. There is no significant effusion of the elbow joint. She has limited range of motion due to superficial irritation from the olecranon bursa. She has tenderness to palpation over the olecranon bursa. Radial pulse is 2/4. Radial, ulnar, median and axillary nerve sensory and motor function are intact. She has some weakness with elbow flexion and extension due to pain related to the elbow olecranon bursitis. Laboratories and radiographs were reviewed, slightly elevated white count and radiographs demonstrating olecranon bursitis and olecranon exostosis projection posteriorly. IMPRESSION: 1. Right elbow olecranon bursitis. 2. Cellulitis, right arm. 3. Diabetes mellitus. RECOMMENDATION: Continue IV antibiotics and conservative management at this time. We will reassess for possible aspiration of the olecranon bursa. At this time, the area of induration does not provide an area of fluid collection which can be easily aspirated. Perhaps with 24-48 hours of continued IV antibiotics, we will have a fluid coalescence that may be drained to aid her progress. Continue with supportive management. We will follow with you. Thank you for the opportunity to consult in the care of this patient.
[2019-07-18] MEDS ORDERED: GLUCAGON 5 MG in SYRINGE 0 ML IV ONE (15:30)
[2019-07-18] MEDS: ONDANSETRON INJ 2 MG/ML 2 ML VIAL IV PRN (17:49)
[2019-07-18] MEDS ORDERED: GLUCAGON 5 MG in DEXTROSE 5% 45 ML IV STA ×2 (18:54→21:52)
[2019-07-18] MEDS ORDERED: ONDANSETRON INJ 2 MG/ML 2 ML VIAL IV STA (19:02)
[2019-07-18 19:40] LABS: BUN Creatinine Ratio 9.5 (10-20); Creatinine Clr Calc Pharmacy 12.6 ml/min; Est GFR (African American) 11.8; Est GFR (Non-African American) 10.2; Potassium 4.6 mmol/L (3.5-5.1)
[2019-07-18] MEDS ORDERED: CALCIUM GLUCONATE 10% 1,000 MG in SODIUM CHLORIDE 0.9% 50 ML IV STA (21:52)
[2019-07-18] MEDS ORDERED: PROMETHAZINE HCL 6.25 MG in SODIUM CHLORIDE 0.9% 50 ML IV STA (22:53)
[2019-07-18] MEDS ORDERED: MoRPHine SULFATE 2 MG/ML CARP IV STA (23:28)
[2019-07-19] MEDS: OXYCODONE HCL IR 5 MG TAB (IMMEDIATE RELEASE) PO PRN ×3 (05:55→21:10)
[2019-07-19 06:04] LABS: Basophils # (auto) 0.02 K/uL (0-0.2); Basophils % (auto) 0.2 %; Eosinophils # (auto) 0.14 K/uL (0-0.5); Eosinophils % (auto) 1.1 %; Hematocrit (blood only) 34.8 % (37-47); Hemoglobin 10.9 g/dL (12.0-16.0); Immature Granulocytes # (auto) 0.03 K/uL (0.00-0.02); Immature Granulocytes % (auto) 0.2 %; Mean Corpuscular Hemoglobin 27.8 pg (25-34); Mean Corpuscular Hgb Conc 31.3 g/dL (32-36); Mean Corpuscular Volume 88.8 fL (80-100); Mean Platelet Volume 9.2 fL (7.4-10.4); Monocytes # (auto) 0.98 K/uL (0.11-0.59); Monocytes % (auto) 7.6 %; Neutrophils # (auto) 9.91 K/uL (1.4-6.5); Neutrophils % (auto) 76.9 %; Platelet Count 203 K/uL (130-400); RDW Coefficient of Variation 14.9 % (11.5-14.5); RDW Standard Deviation 48.4 fL (36.4-46.3); Red Blood Count 3.92 M/uL (4.2-5.4); White Blood Count 12.88 K/uL (4.8-10.8)
[2019-07-19 06:07] LABS: Estimated Average Glucose 148 mg/dl; Hemoglobin A1C 6.8 % (4.5-5.6)
[2019-07-19 06:36] LABS: Albumin Level 2.8 gm/dl (3.4-5.0); BUN Creatinine Ratio 11.8 (10-20); Calcium 9.1 mg/dl (8.5-10.1); Est GFR (African American) 10.9; Est GFR (Non-African American) 9.4; Potassium 4.6 mmol/L (3.5-5.1)
[2019-07-19 06:39] LABS: Albumin Globulin Ratio 0.9 (0.9-2); Bilirubin,Total 0.4 mg/dl (0.2-1); Total Protein 5.8 gm/dl (6.4-8.2)
--- NOTE | 2019-07-19 07:04 | Gynecologic Progress Note ---
Date of Service July 19, 2019 Assessment & Plan (1) Post-menopausal bleeding: - clinically stable from [employer] [facility] - Pap/EMB will not be processes till 07/18 - again, if endometrial ca found, pt will need outpatient f/u with Marketing Segment Manager Onc at tertiary care facility Admission and Anticipated Discharge Date Admission Date: July 18, 2019 Subjective bleeding stable per patient Physical Exam Physical Exam: deferred Results & Data ([facility]) Vital Signs (Past 12 Hours) Vital Signs Temp Pulse Pulse Resp BP BP BP 07/19/19 03:36 98.6 F 65 18 107/52 L 07/19/19 00:12 66 103/65 07/18/19 23:19 98.8 F 60 20 90/50 L 07/18/19 23:00 64 07/18/19 22:10 60 90/56 L 07/18/19 21:45 61 84/48 L 07/18/19 21:01 61 88/54 L 07/18/19 21:00 61 88/50 L 07/18/19 20:41 60 80/52 L 07/18/19 20:20 62 84/48 L 07/18/19 20:00 62 80/54 L 07/18/19 19:43 62 80/50 L 07/18/19 19:24 98.8 F 61 18 82/48 L Pulse Ox 07/19/19 03:36 95 07/19/19 00:12 07/18/19 23:19 91 07/18/19 23:00 07/18/19 22:10 07/18/19 21:45 07/18/19 21:01 07/18/19 21:00 07/18/19 20:41 07/18/19 20:20 07/18/19 20:00 07/18/19 19:43 07/18/19 19:24 93 PG Care Time/CCT Total # of Minutes Spent Total Time Spent with Patient: Total time spent is greater than 50% in coordination of care (as documented) at patient's floor/unit and/or counseling patient: Coding Level of Care Code None Diagnoses Post-menopausal bleeding N95.0
--- NOTE | 2019-07-19 07:28 | Hospitalist Progress Note ---
Date of Service July 19, 2019 Assessment & Plan (1) Beta shayne toxicity: On 07/17, BP was as low as 70/60. She had received metoprolol XL, carvedilol, Entresto, and diltiazem this morning with her AM meds. - Given IV fluids, calcium, and was on glucagon gtt overnight. - This morning, BP is 110/50. Glucagon was weaned overnight. - Hold beta-shayne and calcium channel shayne for now. Restart tentatively. Presently rate-controlled. (2) Olecranon bursitis of right elbow: Right elbow. Some pain with flexion/extension. No change in erythema in last 1-2 days. - Orthopedic consulted - Plan to monitor for 24-48 hours to see if anything can be drained. None at present. - Continue daptomycin (3) Dysfunctional uterine bleeding: Transvaginal sonogram result inconclusive in regards of significant head to the density of the uterus. Biopsy of the endometrium was done on 07/16. - Pathology pending, but piping design specialist feel endometrial cancer is likely. Will need tertiary care for this if this is the case. - Hemoglobin still stable at 10.9 today. - Monitor (4) CHF (congestive heart failure), NYHA class III: Chronic systolic heart failure with EF 20-25% in 04/2019. Patient does not appear to be in acute exacerbation. Per prior HF notes from [facility], her baseline weight is ~100 kgs. - Today (07/17) she is 94 kg, meaning she is down 6 kg. - Hold home medication carvedilol, diltiazem, metoprolol, and Entresto given her present hypotension (see top problem) - Hold home atorvastatin while on daptomycin - Received 500 mL IVFs on 07/17 while hypotensive. CXR on 07/18 showed no congestion. (5) AF (paroxysmal atrial fibrillation): EKG on admission shows a dual-paced rhythm. - Continue apixaban 2.5 mg p.o. twice daily. - Holding rate-control for present hypotension -> Will restart metoprolol cautiously after BP rebounds. (6) Biventricular ICD (implantable cardioverter-defibrillator) in place: EKG shows paced rhythm. - No issues at this time continue monitoring (7) CVA (cerebral vascular accident): No concern for stroke at this time. - Continue monitoring (8) Cognitive changes: Patient has mild to moderate cognitive changes per admitting provider's note. Granddaughter reports some falls at home. - Continue daily orienting patient in time space and surrounding. - PT/OT (9) Coronary artery disease: No chest pain. EKGs non-ischemic. - Continue meds as above (10) Depression: Patient appears to be stable. She states that her mother is on hospice but she is coping well with her issues. - Continue escitalopram 20 mg p.o. daily (11) Hypertension: - Hold home medicine as discussed above. (12) Obstructive sleep apnea: Patient is on nasal cannula 2 L. - Continue monitoring and continue supplemental oxygen. (13) Diabetes mellitus type 2 in obese: A1c was 7.2% in 05/2019. - Continue glargine, but drop to 17 units HS (from home dosing of BID). - Sliding scale insulin - Low threshold to consult glycemic pharmacists if needed -> Glucose levels good so far. (14) Asthma: Stable; no report of shortness of breath today. - Continue home daily inhaler equivalent (Breo Ellipta on formulary) - Continue albuterol PRN (15) DVT prophylaxis: On apixaban for afib Admission and Anticipated Discharge Date Admission Date: July 18, 2019 Subjective Doing much better today. She feels her breathing is a bit short at times, but overall has much more energy. Reports no fevers/chills, chest pain, abdominal pain, nausea, or vomiting. Physical Exam Constitutional: WD/WN, vitals as above Eyes: EOM intact bilaterally; no conjunctival abnormality ENMT: external ear and nose normal, oropharynx normal Neck: trachea midline, no thyromegaly normal visual inspection Respiratory: normal respiratory effort, lungs clear to auscultation no respiratory distress Cardiovascular: RRR, no murmur, no edema Gastrointestinal (Abdomen): Inspection/Auscultation: abdomen normal to inspection; abdomen not distended Musculoskeletal: no cyanosis or clubbing, extremities motor strength 5/5 Skin: no rashes, warm and dry Neurologic: moves all extremities and awake Psychiatric: Orientation: alert, oriented to person and cooperative Results & Data ([facility]) Vital Signs (Past 12 Hours) Vital Signs Temp Pulse Pulse Resp BP BP BP 07/19/19 03:36 37 C 65 18 107/52 L 07/19/19 00:12 66 103/65 07/18/19 23:19 37.1 C 60 20 90/50 L 07/18/19 23:00 64 07/18/19 22:10 60 90/56 L 07/18/19 21:45 61 84/48 L 07/18/19 21:01 61 88/54 L 07/18/19 21:00 61 88/50 L 07/18/19 20:41 60 80/52 L 07/18/19 20:20 62 84/48 L 07/18/19 20:00 62 80/54 L 07/18/19 19:43 62 80/50 L 07/18/19 19:24 37.1 C 61 18 82/48 L Pulse Ox 07/19/19 03:36 95 07/19/19 00:12 07/18/19 23:19 91 07/18/19 23:00 07/18/19 22:10 07/18/19 21:45 07/18/19 21:01 07/18/19 21:00 07/18/19 20:41 07/18/19 20:20 07/18/19 20:00 07/18/19 19:43 07/18/19 19:24 93 PG Care Time/CCT Total # of Minutes Spent Total Time Spent with Patient: Total time spent is greater than 50% in coordination of care (as documented) at patient's floor/unit and/or counseling patient: Coding Level of Care Code 47916 Subseq Hosp Care Lvl 3 Diagnoses Beta shayne toxicity Olecranon bursitis of right elbow M70.21 Dysfunctional uterine bleeding N93.8 CHF (congestive heart failure), NYHA class III I50.23 Congestive heart failure chronicity: acute on chronic Congestive heart failure type: systolic AF (paroxysmal atrial fibrillation) I48.0 Biventricular ICD (implantable cardioverter-defibrillator) in place Z95.810 CVA (cerebral vascular accident) I63.9 Cognitive changes R41.89 Coronary artery disease I25.10 Associated angina: without angina Coronary Disease-Associated Artery/Lesion type: lummi artery [place] vs. transplanted heart: lummi heart Depression F33.9 Active/Remission status: remission status unspecified Depression Type: major depressive disorder Major depression recurrence: recurrent Hypertension I10 Hypertension type: essential hypertension Obstructive sleep apnea G47.33 Diabetes mellitus type 2 in obese E11.69; E66.9 Asthma J45.909 DVT prophylaxis Z29.9 (1) CHF (congestive heart failure), NYHA class III Congestive heart failure chronicity: acute on chronic Congestive heart failure type: systolic Qualified Code(s): I50.23 - Acute on chronic systolic (congestive) heart failure (2) Coronary artery disease Associated angina: without angina Coronary Disease-Associated Artery/Lesion type: [place]mi artery [place] vs. transplanted heart: lummi heart Qualified Code(s): I25.10 - Atherosclerotic heart disease of [place] coronary artery without angina pectoris (3) Depression Active/Remission status: remission status unspecified Depression Type: major depressive disorder Major depression recurrence: recurrent Qualified Code(s): F33.9 - Major depressive disorder, recurrent, unspecified (4) Hypertension Hypertension type: essential hypertension Qualified Code(s): I10 - Essential (primary) hypertension
[2019-07-19] MEDS: IPRATROPIUM BROMIDE/ALBUTEROL respimat INH INH SCH ×4 (08:00→21:10)
[2019-07-19] MEDS: FLUTICASONE/VILANTEROL 100/25MCG 14 PUFFS/INHALER INH SCH (08:00)
[2019-07-19] MEDS: CHOLECALCIFEROL 1,000 UNITS 25 MCG TAB PO SCH (08:01)
[2019-07-19] MEDS: APIXABAN 2.5 MG TAB PO SCH ×2 (08:01→21:11)
[2019-07-19] MEDS: ASCORBIC ACID 500 MG TAB PO SCH ×2 (08:01→21:12)
[2019-07-19] MEDS: ESCITALOPRAM OXALATE 20 MG TAB PO SCH (08:01)
[2019-07-19] MEDS: INSULIN ASPART 100 UNITS/ML 3 ML PEN SC SCH ×4 (08:03→21:11)
--- NOTE | 2019-07-19 09:29 | XRay Report ---
XR chest 2V PA/lateral CLINICAL HISTORY: Hypoxemia COMPARISON STUDY: 05/14/2019 FINDINGS: The heart remains enlarged. There are postsurgical changes of a midline sternotomy. There i s a left subclavian pacer/defibrillator present. There is no failure. There is no focal pulmonary con solidation. There are no significant pleural effusions.[ IMPRESSION: Cardiomegaly. No acute findings. ACT 112: Negative or not required by law. Electronically signed by: Jass Shaw M.D. 07/19/2019 9:27 AM
--- NOTE | 2019-07-19 12:47 | Electrocardiogram Report ---
Test Reason : Blood Pressure : / mmHG Vent. Rate : 064 BPM Atrial Rate : 064 BPM P-R Int : 160 ms QRS Dur : 168 ms QT Int : 498 ms P-R-T Axes : 085 030 070 degrees QTc Int : 513 ms AV dual-paced rhythm Abnormal ECG When compared with ECG of 11-MAY-2019 08:56, Premature ventricular complexes are no longer Present AV dual-paced rhythm has replaced Ventricular-paced rhythm Vent. rate has decreased BY 46 BPM Confirmed by Enrique Duong ([id number]) on 07/19/2019 12:47:16 PM Referred By: REFERRED SELF Confirmed By:Enrique Duong
--- NOTE | 2019-07-19 14:09 | Orthopedic Progress Note ---
Date of Service July 19, 2019 Assessment & Plan (1) Olecranon bursitis of right elbow: Improving on IV Daptomycin, continue with support care, ice/elevation, pain control. Admission and Anticipated Discharge Date Admission Date: July 18, 2019 Subjective Post Operative Progress Note Patient seen sitting in chair at bedside, comfortable, denies complaints, pain well controlled, no acute issues. Reports improvement in symptoms. Review of Systems Review of Systems: All systems reviewed & are unremarkable except as noted in HPI & below Constitutional: as per Subjective / HPI Physical Exam Physical Exam: RUE NVSI, +2 radial pulse, +olecranon bursitis, no errythema, mild TTP Constitutional: WD/WN, vitals as above Results & Data ([facility]) Vital Signs (Past 12 Hours) Vital Signs Temp Pulse Resp BP BP Pulse Ox 07/19/19 12:00 36.5 C 70 15 119/69 92 07/19/19 07:00 37.0 C 62 24 122/66 92 07/19/19 03:36 37 C 65 18 107/52 L 95 Laboratory Results 07/19/19 07/19/19 07/19/19 Range/Units 11:35 07:47 05:43 WBC (4.8-10.8) K/uL RBC (4.2-5.4) M/uL Hgb (12.0-16.0) g/dL Hct (37-47) % MCV (80-100) fL MCH (25-34) pg MCHC (32-36) g/dL RDW Std Deviation (36.4-46.3) fL RDW Coeff of Chriss (11.5-14.5) % Plt Count (130-400) K/uL MPV (7.4-10.4) fL Immature Gran % (Auto) % Neut % (Auto) % Lymph % (Auto) % Carson % (Auto) % Eos % (Auto) % Baso % (Auto) % Immature Gran # (Auto) (0.00-0.02) K/uL Neut # (Auto) (1.4-6.5) K/uL Lymph # (Auto) (1.2-3.4) K/uL Carson # (Auto) (0.11-0.59) K/uL Eos # (Auto) (0-0.5) K/uL Baso # (Auto) (0-0.2) K/uL Sodium (136-145) mmol/L Potassium (3.5-5.1) mmol/L Chloride (98-107) mmol/L Carbon Dioxide (21-32) mmol/L Anion Gap (3-11) BUN (7-18) mg/dl Creatinine (0.6-1.2) mg/dl Est Cr Clr Drug Dosing ml/min Est GFR ( Amer) Est GFR (Non-Af Amer) BUN/Creatinine Ratio (10-20) Glucose (70-99) mg/dl POC Glucose 115 H 90 (70-99) mg/dl Estimat Average Glucose mg/dl Hemoglobin A1c (4.5-5.6) % Calcium (8.5-10.1) mg/dl Ionized Calcium 1.14 (1.12-1.32) mmol/L Total Bilirubin (0.2-1) mg/dl AST (15-37) U/L ALT (12-78) U/L Alkaline Phosphatase (45-117) U/L Total Protein (6.4-8.2) gm/dl Albumin (3.4-5.0) gm/dl Globulin (2.5-4.0) gm/dl Albumin/Globulin Ratio (0.9-2) 07/19/19 07/19/19 07/19/19 Range/Units 05:43 05:43 03:30 WBC 12.88 H (4.8-10.8) K/uL RBC 3.92 L (4.2-5.4) M/uL Hgb 10.9 L (12.0-16.0) g/dL Hct 34.8 L (37-47) % MCV 88.8 (80-100) fL MCH 27.8 (25-34) pg MCHC 31.3 L (32-36) g/dL RDW Std Deviation 48.4 H (36.4-46.3) fL RDW Coeff of Chriss 14.9 H (11.5-14.5) % Plt Count 203 (130-400) K/uL MPV 9.2 (7.4-10.4) fL Immature Gran % (Auto) 0.2 % Neut % (Auto) 76.9 % Lymph % (Auto) 14.0 % Carson % (Auto) 7.6 % Eos % (Auto) 1.1 % Baso % (Auto) 0.2 % Immature Gran # (Auto) 0.03 H (0.00-0.02) K/uL Neut # (Auto) 9.91 H (1.4-6.5) K/uL Lymph # (Auto) 1.80 (1.2-3.4) K/uL Carson # (Auto) 0.98 H (0.11-0.59) K/uL Eos # (Auto) 0.14 (0-0.5) K/uL Baso # (Auto) 0.02 (0-0.2) K/uL Sodium 134 L (136-145) mmol/L Potassium 4.6 (3.5-5.1) mmol/L Chloride 99 (98-107) mmol/L Carbon Dioxide 28 (21-32) mmol/L Anion Gap 7.0 (3-11) BUN 51 H (7-18) mg/dl Creatinine 4.32 H (0.6-1.2) mg/dl Est Cr Clr Drug Dosing 12.0 ml/min Est GFR ( Amer) 10.9 Est GFR (Non-Af Amer) 9.4 BUN/Creatinine Ratio 11.8 (10-20) Glucose 108 H (70-99) mg/dl POC Glucose 148 H (70-99) mg/dl Estimat Average Glucose mg/dl Hemoglobin A1c (4.5-5.6) % Calcium 9.1 (8.5-10.1) mg/dl Ionized Calcium (1.12-1.32) mmol/L Total Bilirubin 0.4 (0.2-1) mg/dl AST 44 H (15-37) U/L ALT 36 (12-78) U/L Alkaline Phosphatase 111 (45-117) U/L Total Protein 5.8 L (6.4-8.2) gm/dl Albumin 2.8 L (3.4-5.0) gm/dl Globulin 3.0 (2.5-4.0) gm/dl Albumin/Globulin Ratio 0.9 (0.9-2) 07/19/19 07/19/19 07/18/19 Range/Units 03:28 00:04 19:57 WBC (4.8-10.8) K/uL RBC (4.2-5.4) M/uL Hgb (12.0-16.0) g/dL Hct (37-47) % MCV (80-100) fL MCH (25-34) pg MCHC (32-36) g/dL RDW Std Deviation (36.4-46.3) fL RDW Coeff of Chriss (11.5-14.5) % Plt Count (130-400) K/uL MPV (7.4-10.4) fL Immature Gran % (Auto) % Neut % (Auto) % Lymph % (Auto) % Carson % (Auto) % Eos % (Auto) % Baso % (Auto) % Immature Gran # (Auto) (0.00-0.02) K/uL Neut # (Auto) (1.4-6.5) K/uL Lymph # (Auto) (1.2-3.4) K/uL Carson # (Auto) (0.11-0.59) K/uL Eos # (Auto) (0-0.5) K/uL Baso # (Auto) (0-0.2) K/uL Sodium (136-145) mmol/L Potassium (3.5-5.1) mmol/L Chloride (98-107) mmol/L Carbon Dioxide (21-32) mmol/L Anion Gap (3-11) BUN (7-18) mg/dl Creatinine (0.6-1.2) mg/dl Est Cr Clr Drug Dosing ml/min Est GFR ( Amer) Est GFR (Non-Af Amer) BUN/Creatinine Ratio (10-20) Glucose (70-99) mg/dl POC Glucose 169 H 137 H 136 H (70-99) mg/dl Estimat Average Glucose mg/dl Hemoglobin A1c (4.5-5.6) % Calcium (8.5-10.1) mg/dl Ionized Calcium (1.12-1.32) mmol/L Total Bilirubin (0.2-1) mg/dl AST (15-37) U/L ALT (12-78) U/L Alkaline Phosphatase (45-117) U/L Total Protein (6.4-8.2) gm/dl Albumin (3.4-5.0) gm/dl Globulin (2.5-4.0) gm/dl Albumin/Globulin Ratio (0.9-2) 07/18/19 07/18/19 07/18/19 Range/Units 19:29 19:06 18:59 WBC (4.8-10.8) K/uL RBC (4.2-5.4) M/uL Hgb 10.8 L (12.0-16.0) g/dL Hct (37-47) % MCV (80-100) fL MCH (25-34) pg MCHC (32-36) g/dL RDW Std Deviation (36.4-46.3) fL RDW Coeff of Chriss (11.5-14.5) % Plt Count (130-400) K/uL MPV (7.4-10.4) fL Immature Gran % (Auto) % Neut % (Auto) % Lymph % (Auto) % Carson % (Auto) % Eos % (Auto) % Baso % (Auto) % Immature Gran # (Auto) (0.00-0.02) K/uL Neut # (Auto) (1.4-6.5) K/uL Lymph # (Auto) (1.2-3.4) K/uL Carson # (Auto) (0.11-0.59) K/uL Eos # (Auto) (0-0.5) K/uL Baso # (Auto) (0-0.2) K/uL Sodium 134 L (136-145) mmol/L Potassium 4.6 (3.5-5.1) mmol/L Chloride 100 (98-107) mmol/L Carbon Dioxide 27 (21-32) mmol/L Anion Gap 7.0 (3-11) BUN 38 H (7-18) mg/dl Creatinine 4.03 H D (0.6-1.2) mg/dl Est Cr Clr Drug Dosing 12.6 ml/min Est GFR ( Amer) 11.8 Est GFR (Non-Af Amer) 10.2 BUN/Creatinine Ratio 9.5 L (10-20) Glucose 127 H (70-99) mg/dl POC Glucose 147 H (70-99) mg/dl Estimat Average Glucose mg/dl Hemoglobin A1c (4.5-5.6) % Calcium 9.0 (8.5-10.1) mg/dl Ionized Calcium (1.12-1.32) mmol/L Total Bilirubin (0.2-1) mg/dl AST (15-37) U/L ALT (12-78) U/L Alkaline Phosphatase (45-117) U/L Total Protein (6.4-8.2) gm/dl Albumin (3.4-5.0) gm/dl Globulin (2.5-4.0) gm/dl Albumin/Globulin Ratio (0.9-2) 07/18/19 07/18/19 Range/Units 16:27 05:14 WBC (4.8-10.8) K/uL RBC (4.2-5.4) M/uL Hgb (12.0-16.0) g/dL Hct (37-47) % MCV (80-100) fL MCH (25-34) pg MCHC (32-36) g/dL RDW Std Deviation (36.4-46.3) fL RDW Coeff of Chriss (11.5-14.5) % Plt Count (130-400) K/uL MPV (7.4-10.4) fL Immature Gran % (Auto) % Neut % (Auto) % Lymph % (Auto) % Carson % (Auto) % Eos % (Auto) % Baso % (Auto) % Immature Gran # (Auto) (0.00-0.02) K/uL Neut # (Auto) (1.4-6.5) K/uL Lymph # (Auto) (1.2-3.4) K/uL Carson # (Auto) (0.11-0.59) K/uL Eos # (Auto) (0-0.5) K/uL Baso # (Auto) (0-0.2) K/uL Sodium (136-145) mmol/L Potassium (3.5-5.1) mmol/L Chloride (98-107) mmol/L Carbon Dioxide (21-32) mmol/L Anion Gap (3-11) BUN (7-18) mg/dl Creatinine (0.6-1.2) mg/dl Est Cr Clr Drug Dosing ml/min Est GFR ( Amer) Est GFR (Non-Af Amer) BUN/Creatinine Ratio (10-20) Glucose (70-99) mg/dl POC Glucose 76 (70-99) mg/dl Estimat Average Glucose 148 mg/dl Hemoglobin A1c 6.8 H (4.5-5.6) % Calcium (8.5-10.1) mg/dl Ionized Calcium (1.12-1.32) mmol/L Total Bilirubin (0.2-1) mg/dl AST (15-37) U/L ALT (12-78) U/L Alkaline Phosphatase (45-117) U/L Total Protein (6.4-8.2) gm/dl Albumin (3.4-5.0) gm/dl Globulin (2.5-4.0) gm/dl Albumin/Globulin Ratio (0.9-2)
--- NOTE | 2019-07-19 14:41 | Electrocardiogram Report ---
Test Reason : Blood Pressure : / mmHG Vent. Rate : 061 BPM Atrial Rate : 061 BPM P-R Int : 162 ms QRS Dur : 164 ms QT Int : 510 ms P-R-T Axes : 097 102 072 degrees QTc Int : 513 ms AV dual-paced rhythm Biventricular pacemaker detected Abnormal ECG When compared with ECG of 17-JUL-2019 12:50, (unconfirmed) Vent. rate has decreased BY 3 BPM Confirmed by Enrique Duong ([id number]) on 07/19/2019 2:41:01 PM Referred By: REFERRED SELF Confirmed By:Enrique Duong
[2019-07-19] MEDS ORDERED: NORMOSOL-R 500 ML IV ONE (14:55)
--- NOTE | 2019-07-19 15:29 | Electrocardiogram Report ---
Test Reason : Blood Pressure : / mmHG Vent. Rate : 069 BPM Atrial Rate : 069 BPM P-R Int : 166 ms QRS Dur : 156 ms QT Int : 482 ms P-R-T Axes : 000 209 070 degrees QTc Int : 516 ms Poor data quality, interpretation may be adversely affected AV dual-paced rhythm Biventricular pacemaker detected Abnormal ECG When compared with ECG of 18-JUL-2019 23:08, (unconfirmed) Vent. rate has increased BY 8 BPM Confirmed by Enrique Duong ([id number]) on 07/19/2019 3:29:06 PM Referred By: REFERRED SELF Confirmed By:Enrique Duong
[2019-07-19] MEDS: DAPTOmycin 400 MG in SYRINGE 0 ML IV SCH (15:56)
--- NOTE | 2019-07-19 16:04 | Nephrology Consultation ---
Date of Consultation July 19, 2019 Assessment & Plan (1) Acute kidney injury: -- SUSSY/CKD likely due to hemodynamic ATN. Time course of increase in creatinine correlates w/ recent hypotensive episode. Clinically doubt obstruction or SUSSY related to Daptomycin therapy -- Will order urinalysis w/ microscopy -- Monitor serial PRP -- No acute indication for HD at this time -- Recommend consultation w/ pharmacy for dosing of Daptomycin in the setting of SUSSY -- If kidney function fails to stabilize over next 48 hours will order renal US (2) Chronic kidney disease, stage 4 (severe): -- Baseline Cr 2.2 (3) Vaginal bleeding: -- s/p endometrial biopsy. Await histology results (4) Olecranon bursitis of right elbow: -- Improving w/ Daptomycin therapy (5) Cardiomyopathy: -- h/o idiopathic dilated CMP and aortic aneurysm s/p aortic graft w/ AVR and CABG x1 History of Present Illness Attending Physician: Robinson Jauregui MD History of Present Illness Ms. Quick is a 73 year old white female who is seen at the request of Dr. Robinson Jauregui for evaluation of SUSSY/CKD. Medical records in the EMR were reviewed today and are summarized as follows: Mr. Quick has stage IV CKD (advanced impairment). Her baseline Cr has been ~ 2.2 w/ EGFR 21 cc/min. Her renal impairment is due to poor perfusion associated w/ idiopathic dilated CMP, microvascular disease and diabetic nephropathy. Her medical history is also significant for HTN, aortic dissection (s/p aortic graft w/ AVR and CABG x1, kidney stones and IV contrast allergy. Ms. Quick was admitted to the hospital 07/17/19 for evaluation of postmenopausal vaginal bleeding and R elbow olecranon bursitis and cellulitis. Gynecology consultation was obtained and endometrial biopsy was performed. Pathology results are pending. Cellulitis is being treated w/ IV Daptomycin. On 07/18/19 patient received her am medications. SBP dropped to 70/60. She received volume resuscitation. Medication reconciliation revealed that patient was listed as taking two different beta blockers and a CCB. Review of medications with outpatient pharmacy reveals that patient may not have been taking these as an outpatient. Primary service has stopped these medications. SBP remains in the low 100's. Creatinine has risen from 2.2 to 4.3. Allergies Allergy/AdvReac Type Severity Reaction Status Date / Time aspirin Allergy Intermediate HIVES Verified 07/17/19 10:36 Iodinated Contrast Media Allergy Intermediate HIVES - Verified 07/17/19 10:36 MRI DYE levofloxacin Allergy Intermediate HIVES, Verified 07/17/19 10:36 VEIN IRRITATION W/IV LEVAQUIN erythromycin base Allergy Unknown UNKNOWN Verified 07/17/19 10:36 Home Medications Home Medications Medication Instructions Recorded Confirmed Type ascorbic acid (vitamin C) [Vitamin 1,000 mg PO Q12H 05/18/18 07/17/19 History C] atorvastatin 40 mg PO QPM 05/18/18 07/17/19 History carvedilol 25 mg PO BID 05/18/18 07/17/19 History cholecalciferol (vitamin D3) 1,000 unit PO DAILY 05/18/18 07/17/19 History [Vitamin D3] fluticasone propion-salmeterol 1 inh INHALATION BID 05/18/18 07/17/19 History [Advair Diskus] Combivent Respimat 1 puff INHALATION QID 05/19/18 07/17/19 History diltiazem HCl 180 mg PO DAILY 05/19/18 07/17/19 History escitalopram oxalate 20 mg PO DAILY 05/19/18 07/17/19 History albuterol sulfate 2.5 mg INHALATION Q4H PRN #75 ml 05/20/19 07/17/19 Rx albuterol sulfate 90 mcg/actuation 2 puff INHALATION Q4H PRN #8 gm 05/20/19 07/17/19 Rx aerosol inhaler apixaban 2.5 mg tablet 2.5 mg PO BID #60 tab 05/20/19 07/17/19 Rx ketoconazole 2 % topical cream 1 applic TOPICAL BID PRN #30 gm 05/20/19 07/17/19 Rx metoprolol succinate 50 mg 50 mg PO DAILY #30 tab 05/20/19 07/17/19 Rx tablet,extended release 24 hr ondansetron HCl 4 mg tablet 4 mg PO Q8H PRN #20 tab 05/20/19 07/17/19 Rx ranitidine HCl 150 mg tablet 150 mg PO BID PRN #60 tab 05/20/19 07/17/19 Rx blood sugar diagnostic #100 ea 06/03/19 07/17/19 Rx blood-glucose meter #1 ea 06/03/19 07/17/19 Rx lancets #100 ea 06/03/19 07/17/19 Rx furosemide 40 mg tablet 40 mg PO QAM #90 tab 06/29/19 07/17/19 Rx insulin glargine 100 unit/mL (3 See Rx Instructions SUBCUT BID ml 07/08/19 07/17/19 History mL) subcutaneous pen sulfamethoxazole 800 0.5 tab PO BID #7 tab 07/08/19 07/17/19 Rx mg-trimethoprim 160 mg tablet sacubitril 24 mg-valsartan 26 mg 1 tab PO BID #60 tab 07/09/19 07/17/19 Rx tablet amoxicillin 875 mg-potassium 1 tab PO BID #20 tab 07/13/19 07/17/19 Rx clavulanate 125 mg tablet Patient History Medical History AF (paroxysmal atrial fibrillation) (Chronic) Anticoagulated (Chronic) Aortic valve disorder (Chronic) Asthma (Chronic) Biventricular ICD (implantable cardioverter-defibrillator) in place (Chronic) Cardiomyopathy (Resolved 07/12/11) Cellulitis (Acute) CHF (congestive heart failure), NYHA class III (Chronic) Chronic kidney disease, stage 4 (severe) (Chronic) Cognitive changes COPD with acute exacerbation (Resolved) Coronary artery disease (Chronic 11/23/10) CVA (cerebral vascular accident) (Resolved 11/23/10) Depression (Chronic) Diabetes (Chronic) Diabetes mellitus type 2 in nonobese (Chronic 11/23/10) Hematuria History of - coronary artery bypass grafting (Resolved 11/23/10) Hyperlipidemia (Chronic 11/23/10) Hypertension (Chronic) 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 (Resolved 11/23/10) Mild acid reflux (Resolved) Obstructive sleep apnea (Chronic) Olecranon bursitis of right elbow Repair of aortic valve with tissue graft (Resolved 11/23/10) Urge incontinence of urine (Chronic) Vitamin D deficiency (Chronic) Surgical History H/O aortic valve replacement (Resolved) Porcine AVR and aortic root graft for proximal aortic dissection 2003 History of aortic aneurysm repair (Resolved) Hx of CABG CABG x1 (PACHECO TO LAD for LV hypokinesis-not CAD-- Done at the time of AVR and aortic root graft) 2002 Family History Mother Diabetes Myocardial infarction Sister Diabetes Son Hypertension Denies family history of Ovarian cancer Prostate cancer Breast cancer Lung cancer Colorectal cancer Cancer Social History Preferred Language: Bolivian Communication Ability: Effective 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 Beliefs That Will Affect Care: None marital status: / Current Living Situation: Family current occupational status: disabled Feels Safe at Home: Yes Smoking Status: Never smoker Second Hand Exposure: No ; Hx Alcohol Use: No Hx Substance Use: No caffeine: Yes (soda) Dental Care, Regularly: No Physical Activity Frequency: Daily Seatbelt Use: sometimes Sunscreen Use: No Review of Systems Constitutional: no fever and no chills Eyes: no worsening vision and no problem reported Ear, Nose, Mouth, Throat: no problem reported Respiratory: no cough and no dyspnea Cardiovascular: no chest pain, no palpitations and no edema Gastrointestinal: no abdominal pain, no nausea, no vomiting and no diarrhea/loose stools Genitourinary: no hematuria Musculoskeletal: no back pain Integumentary: + rash (R elbow) Neurologic: no confusion Physical Exam Constitutional: + obese; not in distress Eyes: PERRL, conjunctivae normal, anicteric sclerae ENMT: external ear and nose normal, oropharynx normal Neck: trachea midline, no thyromegaly Respiratory: normal respiratory effort, lungs clear to auscultation Cardiovascular: RRR, no murmur, no edema Gastrointestinal (Abdomen): normal bowel sounds, soft, nontender, no hepatosplenomegaly Musculoskeletal: Extremities: no cyanosis Skin: + erythema (R elbow) Neurologic: awake; not confused Results & Data Vital Signs (Past 12 Hours) Vital Signs Temp Pulse Resp BP BP Pulse Ox 07/19/19 14:53 36.8 C 71 20 101/65 93 07/19/19 12:00 36.5 C 70 15 119/69 92 07/19/19 07:00 37.0 C 62 24 122/66 92 Laboratory Results Laboratory Tests 06/16/19 07/08/19 07/17/19 10:20 10:06 11:15 WBC Hgb Hct Plt Count Sodium Potassium Chloride Carbon Dioxide BUN Creatinine 2.36 H 1.71 H 2.31 H Glucose Calcium 07/18/19 07/18/19 07/19/19 05:14 19:06 05:43 WBC 12.88 H Hgb 10.9 L Hct 34.8 L Plt Count 203 Sodium Potassium Chloride Carbon Dioxide BUN Creatinine 2.76 H D 4.03 H D Glucose Calcium 07/19/19 05:43 WBC Hgb Hct Plt Count Sodium 134 L Potassium 4.6 Chloride 99 Carbon Dioxide 28 BUN 51 H Creatinine 4.32 H Glucose 108 H Calcium 9.1 PG Care Time/CCT Total # of Minutes Spent Total Time Spent with Patient: Total time spent is greater than 50% in coordination of care (as documented) at patient's floor/unit and/or counseling patient: Coding Level of Care Code 32245 Inpt Consult Level 5 Diagnoses Acute kidney injury N17.9 Chronic kidney disease, stage 4 (severe) N18.4 Vaginal bleeding N93.9 Olecranon bursitis of right elbow M70.21 Cardiomyopathy I42.9
[2019-07-19] MEDS: HYDROmorphone INJ 0.5 MG/0.5 ML SYR IV PRN (16:08)
[2019-07-19] MEDS: ONDANSETRON INJ 2 MG/ML 2 ML VIAL IV PRN (16:08)
[2019-07-19 19:14] LABS: Appearance Urine Cloudy (Clear); Bacteria Urine Automated Negative (Negative); Bilirubin Urine Negative (Negative); Blood Urine 3+ (Negative); Color Urine Yellow; Epithelial Cell Urine Auto >30 /lpf (0-5); Glucose Urine UA Negative (Negative); Ketones Urine Negative (Negative); Leukocyte Esterase Urine Trace (Negative); Nitrite Urine Negative (Negative); Protein Urine Negative (Negative); RBC Urine Automated >30 /hpf (0-4); Urobilinogen Urine Negative (Negative)
[2019-07-19] MEDS ORDERED: INSULIN GLARGINE SOLOSTAR 100 UNITS/ML 3 ML PEN SQ SCH (21:00)
[2019-07-20 07:15] LABS: Basophils # (auto) 0.02 K/uL (0-0.2); Basophils % (auto) 0.2 %; Eosinophils # (auto) 0.25 K/uL (0-0.5); Eosinophils % (auto) 2.4 %; Hematocrit (blood only) 33.2 % (37-47); Hemoglobin 10.4 g/dL (12.0-16.0); Immature Granulocytes # (auto) 0.02 K/uL (0.00-0.02); Immature Granulocytes % (auto) 0.2 %; Lymphocytes # (auto) 1.37 K/uL (1.2-3.4); Mean Corpuscular Hemoglobin 27.7 pg (25-34); Mean Corpuscular Hgb Conc 31.3 g/dL (32-36); Mean Corpuscular Volume 88.5 fL (80-100); Mean Platelet Volume 8.9 fL (7.4-10.4); Monocytes # (auto) 0.88 K/uL (0.11-0.59); Monocytes % (auto) 8.3 %; Neutrophils # (auto) 8.01 K/uL (1.4-6.5); Neutrophils % (auto) 75.9 %; Platelet Count 219 K/uL (130-400); RDW Coefficient of Variation 14.8 % (11.5-14.5); RDW Standard Deviation 48.3 fL (36.4-46.3); Red Blood Count 3.75 M/uL (4.2-5.4); White Blood Count 10.55 K/uL (4.8-10.8)
[2019-07-20 07:57] LABS: Albumin Level 2.6 gm/dl (3.4-5.0); BUN Creatinine Ratio 12.3 (10-20); Calcium 8.5 mg/dl (8.5-10.1); Est GFR (African American) 12.1; Est GFR (Non-African American) 10.4; Potassium 4.1 mmol/L (3.5-5.1)
[2019-07-20] MEDS: ASCORBIC ACID 500 MG TAB PO SCH ×2 (07:59→21:04)
[2019-07-20 08:00] LABS: Albumin Globulin Ratio 0.9 (0.9-2); Bilirubin,Total 0.3 mg/dl (0.2-1); Total Protein 5.6 gm/dl (6.4-8.2)
[2019-07-20] MEDS: APIXABAN 2.5 MG TAB PO SCH ×2 (08:00→21:04)
[2019-07-20] MEDS: ESCITALOPRAM OXALATE 10 MG TAB PO SCH (08:00)
[2019-07-20] MEDS: CHOLECALCIFEROL 1,000 UNITS 25 MCG TAB PO SCH (08:00)
[2019-07-20] MEDS: IPRATROPIUM BROMIDE/ALBUTEROL respimat INH INH SCH ×4 (08:03→21:03)
[2019-07-20] MEDS: FLUTICASONE/VILANTEROL 100/25MCG 14 PUFFS/INHALER INH SCH (08:04)
[2019-07-20] MEDS: INSULIN ASPART 100 UNITS/ML 3 ML PEN SC SCH ×4 (08:06→20:39)
--- NOTE | 2019-07-20 10:29 | Nephrology Progress Note ---
Date of Service July 20, 2019 Assessment & Plan (1) Acute kidney injury: -- SUSSY/CKD due to hemodynamic ATN. Time course of increase in creatinine correlates w/ recent hypotensive episode. Blood pressure has stabilized and Cr is now trending down. Volume status and electrolyte balance are acceptable. No acute indication for HD. -- Urinalysis reviewed. No ATN casts. Hematuria related to catheterized sample -- Monitor serial PRP -- Recommend consultation w/ pharmacy for dosing of Daptomycin in the setting of SUSSY (2) Chronic kidney disease, stage 4 (severe): -- Baseline Cr 2.2 (3) Vaginal bleeding: -- s/p endometrial biopsy. Await histology results (4) Olecranon bursitis of right elbow: -- Improving w/ Daptomycin therapy (5) Cardiomyopathy: -- h/o idiopathic dilated CMP and aortic aneurysm s/p aortic graft w/ AVR and CABG x1 Subjective Ms. Quick was seen & examined in her hospital room this morning. She currently denies fever or abdominal discomfort. She notes that her R elbow cellulitis is improved. Review of Systems Constitutional: + weakness; no fever Eyes: no worsening vision and no problem reported Ear, Nose, Mouth, Throat: no problem reported Respiratory: + cough; no dyspnea Cardiovascular: no chest pain, no palpitations and no edema Gastrointestinal: no abdominal pain, no nausea, no vomiting and no diarrhea/loose stools Genitourinary: no dysuria and no hematuria Musculoskeletal: no back pain Integumentary: no rash Neurologic: no falls Physical Exam Constitutional: + obese; not in distress Eyes: PERRL, conjunctivae normal, anicteric sclerae ENMT: external ear and nose normal, oropharynx normal Neck: trachea midline, no thyromegaly Respiratory: normal respiratory effort, lungs clear to auscultation Cardiovascular: RRR, no murmur, no edema Gastrointestinal (Abdomen): normal bowel sounds, soft, nontender, no hepatosplenomegaly Musculoskeletal: Extremities: no cyanosis Skin: no erythema (R elbow) Neurologic: awake; not confused Results & Data Vital Signs (Past 12 Hours) Vital Signs Temp Pulse Pulse Resp BP BP Pulse Ox 07/20/19 07:00 68 07/20/19 06:58 36.9 C 62 20 95/58 L 99 07/20/19 04:36 37.7 C H 70 18 96/56 L 92 07/19/19 23:10 37.2 C 80 20 117/73 92 Laboratory Results Laboratory Tests 07/19/19 07/20/19 07/20/19 18:55 06:45 06:45 WBC 10.55 Hgb 10.4 L Hct 33.2 L Plt Count 219 Sodium 134 L Potassium 4.1 Chloride 101 Carbon Dioxide 26 BUN 49 H Creatinine 3.96 H D Glucose 60 L Urine Color Yellow Urine Appearance Cloudy A Urine pH 5.0 Ur Specific [place] 1.020 Urine Protein Negative Urine Glucose (UA) Negative Urine Blood 3+ H Urine Nitrite Negative Ur Leukocyte Esterase Trace H Urine WBC (Auto) 1-5 Urine RBC (Auto) >30 H U Hyaline Cast (Auto) 5-10 H U Epithel Cells (Auto) >30 H Urine Bacteria (Auto) Negative PG Care Time/CCT Total # of Minutes Spent Total Time Spent with Patient: Total time spent is greater than 50% in coordination of care (as documented) at patient's floor/unit and/or counseling patient: Coding Level of Care Code 87495 Subseq Hosp Care Lvl 3 Diagnoses Acute kidney injury N17.9 Chronic kidney disease, stage 4 (severe) N18.4 Vaginal bleeding N93.9 Olecranon bursitis of right elbow M70.21 Cardiomyopathy I42.9
[2019-07-20] MEDS: ONDANSETRON INJ 2 MG/ML 2 ML VIAL IV PRN ×2 (12:15→17:37)
--- NOTE | 2019-07-20 12:35 | Gynecologic Progress Note ---
Date of Service July 20, 2019 Assessment & Plan (1) Post-menopausal bleeding: -Unfortunately endometrial biopsy nondiagnostic -still with high suspicion for endometrial malignancy given clinical presentation -need for more tissue through diagnostic D&C -will arrange for anesthesia consult to evaluate patient for risks of surgery Admission and Anticipated Discharge Date Admission Date: July 18, 2019 Results & Data ([facility]) Vital Signs (Past 12 Hours) Vital Signs Temp Pulse Pulse Resp BP BP Pulse Ox 07/20/19 12:04 07/20/19 10:00 98.1 F 61 18 92/55 L 95 07/20/19 07:00 68 07/20/19 06:58 98.4 F 62 20 95/58 L 99 07/20/19 04:36 99.9 F H 70 18 96/56 L 92 Pulse Ox 07/20/19 12:04 96 07/20/19 10:00 07/20/19 07:00 07/20/19 06:58 07/20/19 04:36 PG Care Time/CCT Total # of Minutes Spent Total Time Spent with Patient: Total time spent is greater than 50% in coordination of care (as documented) at patient's floor/unit and/or counseling patient: Coding Level of Care Code 95370 Subseq Hosp Care Lvl 1 Diagnoses Post-menopausal bleeding N95.0
--- NOTE | 2019-07-20 12:51 | Communication Note ---
Date of Service: July 20, 2019 Coordination of care efforts x15min: Discussion with Dr. Portillo of nondiagnostic biopsy and recommendation for D&C as next step. He will be able to do this and is requesting it be scheduled through Ning, our director of ancillary services for [employer]MB[employer]ING [employer] OPERATOR. Discussion with Dr. Hebert of plan for D&C . From medical standpoint she notes this is an acceptable plan, presuming stable condition. She asks if any need to hold eliquis now or at any point prior to surgery. Discussion with Dr. Portillo to determine whether he feels eliquis needs to be stopped; he does not. Discussion with Dr. Ford to determine whether he feels eliquis needs to be stopped; he does not. (Regional anesthesia would require a 5-day hold which is obviously not possible at this point, so it will likely be general, and this does not require eliquis hold.) He notes the on-call anethesiologist for this consult today may be someone other than himself and that the consult will be done as ordered.
--- NOTE | 2019-07-20 13:12 | Anesthesiology Consultation ---
Date of Service July 20, 2019 The patient is a 73 y/o female with multiple comorbidities including afib, pacemaker, CHF (EF 20-25%), acute on chronic kidney injury, DM type 2, R elbow bursitis, morbid obesity, asthma on continuous oxygen, obstructive sleep apnea, and history of stroke who is to undergo a D and C to diagnose potential endometrial cancer. The patient is likely noncompliant with her home medications and was given her home anti-HTN medications on admission which caused her to become hypotensive. Her BP is now 92/55 with her other vitals being stable. The patient does not appear to be in heart failure at this time. Her Eliquis was placed on hold this morning. The patient is a high risk patient for a low risk procedure. She appears to be stable at this time and is acceptable to proceed with surgery as long as her cardiac and pulmonary status remain stable. I discussed the patient with Dr. Hebert. Assessment & Plan (1) Encounter for pre-operative examination: Chart Review Chart Review: Acceptable Risk for Surgery (patient is a high risk patient for low risk procedure, she is acceptable as long as her pulmonary/cardiac status remain stable) and Patient NOT seen in Pre Admission Testing Consults Requested none medicine is following ASA ASA4 History Surgery Operation Date: 07/22/19 07:30 Proposed Procedures p Dilation and Curettage, - Todd Portillo Jr, MD, FACOG s Hysteroscopy, Possible Polypectomy - Todd Portillo Jr, MD, FACOG Height/Weight Height: 5 ft 1 in Weight: 96.4 kg Allergies Allergy/AdvReac Type Severity Reaction Status Date / Time aspirin Allergy Intermediate HIVES Verified 07/17/19 10:36 Iodinated Contrast Media Allergy Intermediate HIVES - Verified 07/17/19 10:36 MRI DYE levofloxacin Allergy Intermediate HIVES, Verified 07/17/19 10:36 VEIN IRRITATION W/IV LEVAQUIN erythromycin base Allergy Unknown UNKNOWN Verified 07/17/19 10:36 Medications Home Medications Medication Instructions Recorded Confirmed Last Taken ascorbic acid (vitamin C) [Vitamin 1,000 mg PO Q12H 05/18/18 07/17/19 07/17/19 C] atorvastatin 40 mg PO QPM 05/18/18 07/17/19 07/16/19 carvedilol 25 mg PO BID 05/18/18 07/17/19 07/17/19 cholecalciferol (vitamin D3) 1,000 unit PO DAILY 05/18/18 07/17/19 07/17/19 [Vitamin D3] fluticasone propion-salmeterol 1 inh INHALATION BID 05/18/18 07/17/19 07/17/19 [Advair Diskus] Combivent Respimat 1 puff INHALATION QID 05/19/18 07/17/19 07/17/19 diltiazem HCl 180 mg PO DAILY 05/19/18 07/17/19 07/17/19 escitalopram oxalate 20 mg PO DAILY 05/19/18 07/17/19 07/17/19 albuterol sulfate 2.5 mg INHALATION Q4H PRN #75 ml 05/20/19 07/17/19 Unknown albuterol sulfate 90 mcg/actuation 2 puff INHALATION Q4H PRN #8 gm 05/20/19 07/17/19 Unknown aerosol inhaler apixaban 2.5 mg tablet 2.5 mg PO BID #60 tab 05/20/19 07/17/19 07/17/19 ketoconazole 2 % topical cream 1 applic TOPICAL BID PRN #30 gm 05/20/19 07/17/19 Unknown metoprolol succinate 50 mg 50 mg PO DAILY #30 tab 05/20/19 07/17/19 07/17/19 tablet,extended release 24 hr ondansetron HCl 4 mg tablet 4 mg PO Q8H PRN #20 tab 05/20/19 07/17/19 Unknown ranitidine HCl 150 mg tablet 150 mg PO BID PRN #60 tab 05/20/19 07/17/19 Unknown blood sugar diagnostic #100 ea 06/03/19 07/17/19 Unknown blood-glucose meter #1 ea 06/03/19 07/17/19 Unknown lancets #100 ea 06/03/19 07/17/19 Unknown furosemide 40 mg tablet 40 mg PO QAM #90 tab 06/29/19 07/17/19 07/17/19 insulin glargine 100 unit/mL (3 See Rx Instructions SUBCUT BID ml 07/08/19 07/17/19 07/17/19 mL) subcutaneous pen sulfamethoxazole 800 0.5 tab PO BID #7 tab 07/08/19 07/17/19 07/17/19 mg-trimethoprim 160 mg tablet sacubitril 24 mg-valsartan 26 mg 1 tab PO BID #60 tab 07/09/19 07/17/19 07/17/19 tablet amoxicillin 875 mg-potassium 1 tab PO BID #20 tab 07/13/19 07/17/19 07/17/19 clavulanate 125 mg tablet Active Medications Generic Name Dose Route Start Last Admin Trade Name Freq PRN Reason Stop Dose Admin Acetaminophen 650 mg 07/17/19 15:37 07/18/19 17:49 Tylenol PO 08/16/19 15:36 650 mg Q4H PRN Administration Pain or Fever Albuterol 1 puffs 07/17/19 17:00 07/20/19 08:03 Combivent Respimat INH 08/16/19 16:59 1 puffs QID [place] Administration Apixaban 2.5 mg 07/17/19 21:00 07/20/19 08:00 Eliquis PO 08/16/19 20:59 2.5 mg BID [place] Administration Ascorbic Acid 1,000 mg 07/17/19 21:00 07/20/19 07:59 Vitamin C PO 08/16/19 20:59 1,000 mg Q12 [place] Administration Escitalopram Oxalate 10 mg 07/20/19 09:00 07/20/19 08:00 Lexapro Tab PO 08/19/19 08:59 10 mg DAILY [place] Administration Fluticasone/Vilanterol 1 puffs 07/18/19 09:00 07/20/19 08:04 Breo Ellipta 100/25 Mcg Inh INH 08/17/19 08:59 1 puffs DAILY [place] Administration Hydromorphone HCl 0.5 mg 07/17/19 15:37 07/19/19 16:08 Dilaudid IV 07/31/19 15:36 0.5 mg Q2H PRN Administration Pain Daptomycin 400 mg/ Syringe 8 mls @ 4 mls/min 07/17/19 16:30 07/19/19 15:56 IV 08/28/19 16:29 4 mls/min Q48H [place] Administration Protocol Insulin Aspart 0 units 07/17/19 16:30 07/20/19 12:21 Novolog Flexpen SC 08/16/19 16:29 Not Given ACHS [place] Miscellaneous 15 - 30 gm 07/17/19 15:37 07/17/19 20:15 Carbohydrates For Hypoglycemia PO 08/16/19 15:36 15 gm UD PRN Administration Hypoglycemia Protocol Ondansetron HCl 4 mg 07/17/19 15:37 07/20/19 12:15 Zofran IV 08/16/19 15:36 4 mg Q6H PRN Administration Nausea Oxycodone HCl 5 mg 07/18/19 08:57 07/19/19 21:10 Roxicodone Immediate Rel PO 08/01/19 08:56 5 mg Q6 PRN Administration Pain Vitamin D 1,000 units 07/18/19 09:00 07/20/19 08:00 Vitamin D3 PO 08/17/19 08:59 1,000 units DAILY [place] Administration Past Medical History Medical History (Updated 07/20/19 @ 13:30 by Ajay García MD) AF (paroxysmal atrial fibrillation) (Chronic) Anticoagulated (Chronic) Aortic valve disorder (Chronic) Asthma (Chronic) Biventricular ICD (implantable cardioverter-defibrillator) in place (Chronic) Cardiomyopathy (Resolved 07/12/11) Cellulitis (Acute) CHF (congestive heart failure), NYHA class III (Chronic) EF 20-25% Chronic kidney disease, stage 4 (severe) (Chronic) Cognitive changes COPD with acute exacerbation (Resolved) Coronary artery disease (Chronic 11/23/10) CVA (cerebral vascular accident) (Resolved 11/23/10) Depression (Chronic) Diabetes (Chronic) Diabetes mellitus type 2 in nonobese (Chronic 11/23/10) Hematuria History of - coronary artery bypass grafting (Resolved 11/23/10) Hyperlipidemia (Chronic 11/23/10) Hypertension (Chronic) 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 (Resolved 11/23/10) Mild acid reflux (Resolved) Obstructive sleep apnea (Chronic) Olecranon bursitis of right elbow Repair of aortic valve with tissue graft (Resolved 11/23/10) Urge incontinence of urine (Chronic) Vitamin D deficiency (Chronic) Past Family History Family History Mother Diabetes Myocardial infarction Sister Diabetes Son Hypertension Denies family history of Ovarian cancer Prostate cancer Breast cancer Lung cancer Colorectal cancer Cancer Past Surgical History Surgical History H/O aortic valve replacement (Resolved) Porcine AVR and aortic root graft for proximal aortic dissection 2003 History of aortic aneurysm repair (Resolved) Hx of CABG CABG x1 (PACHECO TO LAD for LV hypokinesis-not CAD-- Done at the time of AVR and aortic root graft) 2002 Social History Smoking Status: Never smoker Do You Dip or Chew Tobacco: No Hx Alcohol Use: No Hx Substance Use: No substance use type: does not use Physical Exam Vital Signs Last Vital Signs Temp 36.7 C 07/20/19 10:00 Pulse 61 07/20/19 10:00 Resp 18 07/20/19 10:00 BP 92/55 L 07/20/19 10:00 Pulse Ox 96 07/20/19 12:04 sitting in chair with 2 L NC Constitutional + morbidly obese ENMT Mouth: + edentulous Thyromental Distance: > or= 3.5 Finger Breadths Mallampati Class: II Neck normal visual inspection and + thick neck Respiratory normal respiratory effort Auscultation: lungs clear to auscultation bilaterally Cardiovascular Rate/Rhythm: regular rate and regular rhythm Musculoskeletal Extremities: extremities normal to inspection (R elbow swelling) Neurologic moves all extremities Psychiatric Orientation: alert and oriented x 3 Testing Laboratory Results 07/20/19 06:45 07/20/19 06:45 PT 11.9 Seconds (9.0-12.0) 07/17/19 11:15 INR 1.1 (0.9-1.1) 07/17/19 11:15 APTT 27.9 Seconds (21.0-31.0) 07/17/19 11:15 Hemoglobin A1c 6.8 % (4.5-5.6) H 07/18/19 05:14 Urine Color Yellow 07/19/19 18:55 Urine Appearance Cloudy (Clear) A 07/19/19 18:55 Urine pH 5.0 (4.5-7.5) 07/19/19 18:55 Ur Specific [place] 1.020 (1.000-1.030) 07/19/19 18:55 Urine Protein Negative (Negative) 07/19/19 18:55 Urine Glucose (UA) Negative (Negative) 07/19/19 18:55 Urine Ketones Negative (Negative) 07/19/19 18:55 Urine Nitrite Negative (Negative) 07/19/19 18:55 Ur Leukocyte Esterase Trace (Negative) H 07/19/19 18:55 Urine WBC (Auto) 1-5 /hpf (0-5) 07/19/19 18:55 Urine RBC (Auto) >30 /hpf (0-4) H 07/19/19 18:55 U Hyaline Cast (Auto) 5-10 /lpf (0-5) H 07/19/19 18:55 U Epithel Cells (Auto) >30 /lpf (0-5) H 07/19/19 18:55 Urine Bacteria (Auto) Negative (Negative) 07/19/19 18:55 Blood Type O Positive 07/17/19 11:15 Antibody Screen NEGATIVE 07/17/19 11:15 07/17/19 09:53 Gram Stain - Final Vaginal Genital Culture - Final Yeast not [place] albicans 07/17/19 15:12 Aerobic Blood Culture - Preliminary Blood No growth in Aerobic bottle after 48 hours. Anaerobic Blood Culture - Preliminary No growth in Anaerobic bottle after 48 hours. 07/17/19 15:05 Aerobic Blood Culture - Preliminary Blood No growth in Aerobic bottle after 48 hours. Anaerobic Blood Culture - Preliminary No growth in Anaerobic bottle after 48 hours. 07/20/19 07/20/19 11:19 07:25 POC Glucose 108 H 73 Electrocardiogram Date: 07/19/19 AV Dual paced rate 69 Chest X-Ray Date: 07/19/19 XR chest 2V PA/lateral CLINICAL HISTORY: Hypoxemia COMPARISON STUDY: 05/14/2019 FINDINGS: The heart remains enlarged. There are postsurgical changes of a midline sternotomy. There is a left subclavian pacer/defibrillator present. There is no failure. There is no focal pulmonary consolidation. There are no significant pleural effusions.[ IMPRESSION: Cardiomegaly. No acute findings. ACT 112: Negative or not required by law. Electronically signed by: Jass Shaw M.D. 07/19/2019 9:27 AM Dictated: 07/19/19926 Transcribed: 07/19/19926 Echocardiogram Date: 05/11/19 EF: 20-25 LV Function: dysfunctional Other Findings: + atrial enlargement (severe) Bioprosthetic Aortic Valve functioning well, RSVP 40-50 mm Hg
--- NOTE | 2019-07-20 14:30 | Gynecologic Progress Note ---
Date of Service July 20, 2019 Assessment & Plan (1) Post-menopausal bleeding: -discussed with the patient the nondiagnostic status of the endometrial biopsy. -definitive diagnosis needs to be ascertained to rule out malignancy of the uterus -procedure of choice would be diagnostic D and C, hysteroscopy with possible polypectomy -have discussed the case with hospitalist and anesthesia -risks, benefits, and alternatives to the surgery have been discussed -permit has been signed and she wishes to proceed -will be NPO after midnight on 07/20 -no need to hold Eliquis from magnetic prospector standpoint Admission and Anticipated Discharge Date Admission Date: July 18, 2019 Subjective 73-year-old postmenopausal female who complaints of continued postmenopausal bleeding. Endometrial biopsy done on 07/16 was nondiagnostic. Physical Exam Constitutional: WD/WN, vitals as above Eyes: EOM intact bilaterally; no conjunctival abnormality ENMT: external ear and nose normal, oropharynx normal Neck: trachea midline, no thyromegaly normal visual inspection Respiratory: normal respiratory effort, lungs clear to auscultation no respiratory distress Cardiovascular: RRR, no murmur, no edema Gastrointestinal (Abdomen): Inspection/Auscultation: abdomen normal to inspection; abdomen not distended Musculoskeletal: no cyanosis or clubbing, extremities motor strength 5/5 Skin: no rashes, warm and dry Neurologic: moves all extremities and awake Psychiatric: Orientation: alert, oriented to person and cooperative Results & Data ([facility]) Vital Signs (Past 12 Hours) Vital Signs Temp Pulse Pulse Resp BP BP Pulse Ox 07/20/19 12:04 07/20/19 10:00 98.1 F 61 18 92/55 L 95 07/20/19 07:00 68 07/20/19 06:58 98.4 F 62 20 95/58 L 99 07/20/19 04:36 99.9 F H 70 18 96/56 L 92 Pulse Ox 07/20/19 12:04 96 07/20/19 10:00 07/20/19 07:00 07/20/19 06:58 07/20/19 04:36 PG Care Time/CCT Total # of Minutes Spent Total Time Spent with Patient: Total time spent is greater than 50% in coordination of care (as documented) at patient's floor/unit and/or counseling patient: Coding Level of Care Code None Diagnoses Post-menopausal bleeding N95.0
--- NOTE | 2019-07-20 16:53 | Orthopedic Progress Note ---
Date of Service July 20, 2019 Assessment & Plan (1) Olecranon bursitis of right elbow: No new changes. Improving on IV Daptomycin, continue with support care, ice/elevation, pain control. Admission and Anticipated Discharge Date Admission Date: July 18, 2019 Subjective Pt ambulating in room heading to use the BR. States that her elbow continues to feel better each day. Much less discomfort, erythema, and swelling. No new complaints. Physical Exam Physical Exam: Good ROM of the right elbow. Mostly firm bursitis at the elbow. A slight amount of bogginess at the very tip of the elbow that is nontender. NT on palpation. No overt heat to the elbow at this time. Results & Data ([facility]) Vital Signs (Past 12 Hours) Vital Signs Temp Pulse Pulse Resp BP BP Pulse Ox 07/20/19 15:52 36.8 C 60 18 92/56 L 94 07/20/19 12:04 07/20/19 10:00 36.7 C 61 18 92/55 L 95 07/20/19 07:00 68 07/20/19 06:58 36.9 C 62 20 95/58 L 99 Pulse Ox 07/20/19 15:52 07/20/19 12:04 96 07/20/19 10:00 07/20/19 07:00 07/20/19 06:58
[2019-07-20] MEDS ORDERED: INSULIN GLARGINE SOLOSTAR 100 UNITS/ML 3 ML PEN SQ SCH (21:00)
--- NOTE | 2019-07-20 22:38 | Hospitalist Progress Note ---
Date of Service July 20, 2019 Assessment & Plan (1) Olecranon bursitis of right elbow: Presented with swollen right elbow-->diagnosed with septic olecranon bursitis Erythema and swelling significantly improved now on IV Dapto - Orthopedic consulted - nothing surgical at this time -continue abx and convert to po abx at time of discharge -holding statin while on Dapto -continue icing and avoidance of resting elbow on hard surfaces (2) Beta shayne toxicity: On 07/17, BP was as low as 70/60. She had received metoprolol XL, carvedilol, Entresto, and diltiazem the AM after admission due to confusion about what her actual home meds are - Given IV fluids, calcium, and was on glucagon gtt overnight. - BPs improved. HR was never an issue due to presence of pacer -Glucagon was weaned off - continue to hold beta-blockers and calcium channel shayne for now. -likely will eventually restart Metoprolol only due to once daily dosing and h/o questionable compliance with meds -continue tele monitoring (3) Acute kidney injury: Facility Assistant up to 4.32 at peak from ATN after hypotensive episode with beta shayne toxicity as above Making urine, lytes stable, not volume overloaded Nephrology following UA with 3+ blood, no casts -improved today with waterproofer helper down to 3.96 -continue to follow BMP, UOP, daily weights, BPs (4) Dysfunctional uterine bleeding: Has had intermittent post-menopausal vag bleeding over the last year, much worse lately. TVUS with thickened endometrium Biopsy of the endometrium was done on 07/16--> nondiagnostic, all blood. - IDEA WORKER feels endometrial cancer is likely. -now plan for D&C under anesthesia on 07/21 -no acute CHF, renal function improving, no ongoing ischemia or chest pain--> given necessity of procedure and relatively short time under anesthesia, seems medically stable to undergo the procedure, carefully watching BPs-discussed case with Anesthesia - Hemoglobin mildly low but stable at 10.4 today. - Monitor CBC -ok to continue Eliquis for now (5) CHF (congestive heart failure), NYHA class III: Chronic systolic heart failure with EF 20-25% in 04/2019. Patient does not appear to be in acute exacerbation. Per prior HF notes from [facility] Gross[facility], her baseline weight is ~100 kgs. - currently at 96kg under baseline dry weight - continue to hold home medication carvedilol, diltiazem, metoprolol, and Entresto given her present hypotension (see top problem) - Hold home atorvastatin while on daptomycin - Received 500 mL IVFs on 07/17 while hypotensive. CXR on 07/18 showed no congestion. (6) AF (paroxysmal atrial fibrillation): EKG on admission shows a dual-paced rhythm. - Continue apixaban 2.5 mg p.o. twice daily. - Holding rate-control for present hypotension -> Will restart metoprolol cautiously after BP rebounds. (7) Biventricular ICD (implantable cardioverter-defibrillator) in place: EKG shows paced rhythm. - No issues at this time continue monitoring (8) CVA (cerebral vascular accident): No concern for stroke at this time. - Continue monitoring (9) Cognitive changes: Patient has mild to moderate cognitive changes per admitting provider's note. Granddaughter reports some falls at home. - Continue daily orienting patient in time space and surrounding. - PT/OT (10) Coronary artery disease: No chest pain. EKGs non-ischemic. With h/o single vessel CABG at time of valve replacement - Continue apixaban, statin on hold, metoprolol on hold (11) Depression: Patient appears to be stable. She states that her mother is on hospice but she is coping well with her issues. - Continue escitalopram 20 mg p.o. daily (12) Hypertension: - Hold home medicine as discussed above for hypotension which is now improving (13) Obstructive sleep apnea: Patient is on nasal cannula 2 L. - Continue monitoring and continue supplemental oxygen. (14) Diabetes mellitus type 2 in obese: A1c was 7.2% in 05/2019. Had hypoglycemia again this AM to 60, secondary to renal failure most likely - Continue glargine, but drop to 10 units HS - Sliding scale insulin (15) Asthma: Stable; no report of shortness of breath today. 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 Had less vag bleeding today, only changed her pad twice. Denies SOB or chest pain. Is OOB to chair and ambulating with assistance to BR.Denies abd pain or nausea, is eating well. She reports ma mallory plenty of urine. Discussed her case with TRANSCRIPT CLERK, Anesthesia, and Nephrology. Tele with paced rhythm, rates in 70s Review of Systems Review of Systems: All systems reviewed & are unremarkable except as noted in HPI & below Physical Exam Constitutional: WD/WN, vitals as above + obese Eyes: + anicteric sclerae ENMT: external ear and nose normal, oropharynx normal Neck: trachea midline, no thyromegaly Respiratory: normal respiratory effort, lungs clear to auscultation Cardiovascular: RRR, no murmur, no edema Chest (Breasts): Chest: normal inspection of chest Gastrointestinal (Abdomen): normal bowel sounds, soft, nontender, no hepatosplenomegaly Musculoskeletal: Extremities: + extremities abnormal to inspection (rt elbow with mildly enlarged olecrenon bursa, mild overlying erythema), no cyanosis and no clubbing Neurologic: moves all extremities and awake; no focal motor deficits Psychiatric: A+Ox3, euthymic affect Lymphatic: no lymphedema Results & Data ([facility]) Vital Signs (Past 12 Hours) Vital Signs Temp Pulse Resp BP Pulse Ox Pulse Ox 07/20/19 19:31 36.6 C 67 18 100/65 97 07/20/19 15:52 36.8 C 60 18 92/56 L 94 07/20/19 12:04 96 Laboratory Results 07/20/19 07/20/19 07/20/19 Range/Units 20:25 16:13 11:19 WBC (4.8-10.8) K/uL RBC (4.2-5.4) M/uL Hgb (12.0-16.0) g/dL Hct (37-47) % MCV (80-100) fL MCH (25-34) pg MCHC (32-36) g/dL RDW Std Deviation (36.4-46.3) fL RDW Coeff of Chriss (11.5-14.5) % Plt Count (130-400) K/uL MPV (7.4-10.4) fL Immature Gran % (Auto) % Neut % (Auto) % Lymph % (Auto) % Cameron % (Auto) % Eos % (Auto) % Baso % (Auto) % Immature Gran # (Auto) (0.00-0.02) K/uL Neut # (Auto) (1.4-6.5) K/uL Lymph # (Auto) (1.2-3.4) K/uL Cameron # (Auto) (0.11-0.59) K/uL Eos # (Auto) (0-0.5) K/uL Baso # (Auto) (0-0.2) K/uL Sodium (136-145) mmol/L Potassium (3.5-5.1) mmol/L Chloride (98-107) mmol/L Carbon Dioxide (21-32) mmol/L Anion Gap (3-11) BUN (7-18) mg/dl Creatinine (0.6-1.2) mg/dl Est Cr Clr Drug Dosing ml/min Est GFR ( Amer) Est GFR (Non-Af Amer) BUN/Creatinine Ratio (10-20) Glucose (70-99) mg/dl POC Glucose 114 H 143 H 108 H (70-99) mg/dl Calcium (8.5-10.1) mg/dl Total Bilirubin (0.2-1) mg/dl AST (15-37) U/L ALT (12-78) U/L Alkaline Phosphatase (45-117) U/L Total Protein (6.4-8.2) gm/dl Albumin (3.4-5.0) gm/dl Globulin (2.5-4.0) gm/dl Albumin/Globulin Ratio (0.9-2) 07/20/19 07/20/19 07/20/19 Range/Units 07:25 06:45 06:45 WBC 10.55 (4.8-10.8) K/uL RBC 3.75 L (4.2-5.4) M/uL Hgb 10.4 L (12.0-16.0) g/dL Hct 33.2 L (37-47) % MCV 88.5 (80-100) fL MCH 27.7 (25-34) pg MCHC 31.3 L (32-36) g/dL RDW Std Deviation 48.3 H (36.4-46.3) fL RDW Coeff of Chriss 14.8 H (11.5-14.5) % Plt Count 219 (130-400) K/uL MPV 8.9 (7.4-10.4) fL Immature Gran % (Auto) 0.2 % Neut % (Auto) 75.9 % Lymph % (Auto) 13.0 % Cameron % (Auto) 8.3 % Eos % (Auto) 2.4 % Baso % (Auto) 0.2 % Immature Gran # (Auto) 0.02 (0.00-0.02) K/uL Neut # (Auto) 8.01 H (1.4-6.5) K/uL Lymph # (Auto) 1.37 (1.2-3.4) K/uL Cameron # (Auto) 0.88 H (0.11-0.59) K/uL Eos # (Auto) 0.25 (0-0.5) K/uL Baso # (Auto) 0.02 (0-0.2) K/uL Sodium 134 L (136-145) mmol/L Potassium 4.1 (3.5-5.1) mmol/L Chloride 101 (98-107) mmol/L Carbon Dioxide 26 (21-32) mmol/L Anion Gap 7.0 (3-11) BUN 49 H (7-18) mg/dl Creatinine 3.96 H D (0.6-1.2) mg/dl Est Cr Clr Drug Dosing 13.0 ml/min Est GFR ( Amer) 12.1 Est GFR (Non-Af Amer) 10.4 BUN/Creatinine Ratio 12.3 (10-20) Glucose 60 L (70-99) mg/dl POC Glucose 73 (70-99) mg/dl Calcium 8.5 (8.5-10.1) mg/dl Total Bilirubin 0.3 (0.2-1) mg/dl AST 23 (15-37) U/L ALT 24 (12-78) U/L Alkaline Phosphatase 93 (45-117) U/L Total Protein 5.6 L (6.4-8.2) gm/dl Albumin 2.6 L (3.4-5.0) gm/dl Globulin 3.0 (2.5-4.0) gm/dl Albumin/Globulin Ratio 0.9 (0.9-2) PG Care Time/CCT Total # of Minutes Spent Total Time Spent with Patient: Total time spent is greater than 50% in coordination of care (as documented) at patient's floor/unit and/or counseling patient: Coding Level of Care Code 53807 Subseq Hosp Care Lvl 3 Diagnoses Olecranon bursitis of right elbow M70.21 Beta shayne toxicity Acute kidney injury N17.9 Dysfunctional uterine bleeding N93.8 CHF (congestive heart failure), NYHA class III I50.23 Congestive heart failure type: systolic Congestive heart failure chronicity: acute on chronic AF (paroxysmal atrial fibrillation) I48.0 Biventricular ICD (implantable cardioverter-defibrillator) in place Z95.810 CVA (cerebral vascular accident) I63.9 Cognitive changes R41.89 Coronary artery disease I25.10 Coronary Disease-Associated Artery/Lesion type: [place] artery [place] vs. transplanted heart: [place] heart Associated angina: without angina Depression F33.9 Depression Type: major depressive disorder Major depression recurrence: recurrent Active/Remission status: remission status unspecified Hypertension I10 Hypertension type: essential hypertension Obstructive sleep apnea G47.33 Diabetes mellitus type 2 in obese E11.69; E66.9 Asthma J45.909 Aortic valve disorder I35.9 DVT prophylaxis Z29.9 (1) CHF (congestive heart failure), NYHA class III Congestive heart failure type: systolic Congestive heart failure chronicity: acute on chronic Qualified Code(s): I50.23 - Acute on chronic systolic (congestive) heart failure (2) Coronary artery disease Coronary Disease-Associated Artery/Lesion type: [place] artery [place] vs. transplanted heart: [place] heart Associated angina: without angina Qualified Code(s): I25.10 - Atherosclerotic heart disease of [place] coronary artery without angina pectoris (3) Depression Depression Type: major depressive disorder Major depression recurrence: recurrent Active/Remission status: remission status unspecified Qualified Code(s): F33.9 - Major depressive disorder, recurrent, unspecified (4) Hypertension Hypertension type: essential hypertension Qualified Code(s): I10 - Essential (primary) hypertension
[2019-07-21 07:48] LABS: Basophils # (auto) 0.04 K/uL (0-0.2); Basophils % (auto) 0.5 %; Eosinophils % (auto) 4.9 %; Hematocrit (blood only) 35.8 % (37-47); Hemoglobin 11.3 g/dL (12.0-16.0); Immature Granulocytes # (auto) 0.01 K/uL (0.00-0.02); Immature Granulocytes % (auto) 0.1 %; Lymphocytes # (auto) 1.48 K/uL (1.2-3.4); Lymphocytes % (auto) 18.3 %; Mean Corpuscular Hgb Conc 31.6 g/dL (32-36); Mean Corpuscular Volume 88.6 fL (80-100); Mean Platelet Volume 8.7 fL (7.4-10.4); Monocytes # (auto) 0.56 K/uL (0.11-0.59); Monocytes % (auto) 6.9 %; Neutrophils % (auto) 69.3 %; Platelet Count 233 K/uL (130-400); RDW Coefficient of Variation 14.6 % (11.5-14.5); RDW Standard Deviation 47.9 fL (36.4-46.3); Red Blood Count 4.04 M/uL (4.2-5.4); White Blood Count 8.09 K/uL (4.8-10.8)
[2019-07-21] MEDS: FLUTICASONE/VILANTEROL 100/25MCG 14 PUFFS/INHALER INH SCH (08:13)
[2019-07-21] MEDS: IPRATROPIUM BROMIDE/ALBUTEROL respimat INH INH SCH ×2 (08:13→12:05)
[2019-07-21] MEDS: APIXABAN 2.5 MG TAB PO SCH ×2 (08:14→20:34)
[2019-07-21] MEDS: CHOLECALCIFEROL 1,000 UNITS 25 MCG TAB PO SCH (08:14)
[2019-07-21] MEDS: ASCORBIC ACID 500 MG TAB PO SCH (08:14)
[2019-07-21] MEDS: ESCITALOPRAM OXALATE 10 MG TAB PO SCH (08:14)
[2019-07-21] MEDS: INSULIN ASPART 100 UNITS/ML 3 ML PEN SC SCH ×4 (08:20→21:44)
[2019-07-21 08:26] LABS: BUN Creatinine Ratio 13.5 (10-20); Calcium 9.5 mg/dl (8.5-10.1); Creatinine Clr Calc Pharmacy 12.6 ml/min; Est GFR (African American) 11.7; Est GFR (Non-African American) 10.1; Potassium 4.4 mmol/L (3.5-5.1)
--- NOTE | 2019-07-21 09:23 | Nephrology Progress Note ---
Date of Service July 21, 2019 Assessment & Plan (1) Acute kidney injury: -- SUSSY/CKD due to hemodynamic ATN. Time course of increase in creatinine correlates w/ recent hypotensive episode. Blood pressure has stabilized. Cr is unchanged over last 24 hrs. Volume status and electrolyte balance are acceptable. No acute indication for HD. -- Urinalysis reviewed. No ATN casts. Hematuria related to catheterized sample -- Repeat PRP and urine microscopy in am -- Since no significant change in creatinine overnight will order renal US (2) Chronic kidney disease, stage 4 (severe): -- Baseline Cr 2.2 (3) Vaginal bleeding: -- May need D&C. Await DIRECTOR OF BUSINESS APPLICATIONS recommendations (4) Olecranon bursitis of right elbow: -- Improving w/ Daptomycin therapy (5) Cardiomyopathy: -- h/o idiopathic dilated CMP and aortic aneurysm s/p aortic graft w/ AVR and CABG x1 Subjective Ms. Quick was seen & examined in her hospital room this morning. She denies fever, flank pain or gross hematuria. She reports brisk UO. Urine volume recorded by RN for last 24 hours was 500 cc. Ms. Quick expressed concern about undergoing D&C. She wishes to discuss the benefits & risks w/ DIRECTOR OF BUSINESS APPLICATIONS. Review of Systems Constitutional: + weakness; no fever Eyes: no worsening vision and no problem reported Ear, Nose, Mouth, Throat: no problem reported Respiratory: no cough and no dyspnea Cardiovascular: no chest pain, no palpitations and no edema Gastrointestinal: no abdominal pain, no nausea, no vomiting and no diarrhea/l oose stools Genitourinary: no dysuria and no hematuria Musculoskeletal: no back pain Integumentary: no rash Neurologic: no falls, no dizziness and no confusion Physical Exam Constitutional: + obese; not in distress Eyes: PERRL, conjunctivae normal, anicteric sclerae ENMT: external ear and nose normal, oropharynx normal Neck: trachea midline, no thyromegaly Respiratory: normal respiratory effort, lungs clear to auscultation Cardiovascular: RRR, no murmur, no edema Gastrointestinal (Abdomen): normal bowel sounds, soft, nontender, no hepatosplenomegaly Musculoskeletal: Extremities: no cyanosis Skin: no erythema (R elbow) Neurologic: awake; not confused Results & Data Vital Signs (Past 12 Hours) Vital Signs Temp Pulse Pulse Resp BP Pulse Ox 07/21/19 07:30 36.5 C 73 20 129/80 97 07/21/19 07:29 98 H 07/21/19 04:57 36.8 C 72 20 114/73 93 07/20/19 23:40 37.0 C 70 20 148/73 H 96 07/20/19 22:19 92 H Laboratory Results Laboratory Tests 07/21/19 07/21/19 07:41 07:41 WBC 8.09 Hgb 11.3 L Hct 35.8 L Plt Count 233 Sodium 137 Potassium 4.4 Chloride 103 Carbon Dioxide 29 BUN 55 H Creatinine 4.08 H Glucose 87 PG Care Time/CCT Total # of Minutes Spent Total Time Spent with Patient: Total time spent is greater than 50% in coordination of care (as documented) at patient's floor/unit and/or counseling patient: Coding Level of Care Code 65102 Subseq Hosp Care Lvl 3 Diagnoses Acute kidney injury N17.9 Chronic kidney disease, stage 4 (severe) N18.4 Vaginal bleeding N93.9 Olecranon bursitis of right elbow M70.21 Cardiomyopathy I42.9
[2019-07-21] MEDS: ONDANSETRON INJ 2 MG/ML 2 ML VIAL IV PRN (12:13)
[2019-07-21 12:43] LABS: Appearance Urine Cloudy (Clear); Bacteria Urine Automated Negative (Negative); Bilirubin Urine Negative (Negative); Blood Urine 3+ (Negative); Glucose Urine UA Negative (Negative); Ketones Urine Negative (Negative); Leukocyte Esterase Urine 2+ (Negative); Nitrite Urine Negative (Negative); Protein Urine 2+ (Negative); RBC Urine Automated >30 /hpf (0-4); Specific Gravity Urine 1.016 (1.000-1.030); Urobilinogen Urine Negative (Negative); WBC Urine Automated >30 /hpf (0-5)
[2019-07-21 12:45] LABS: Color Urine Red
--- NOTE | 2019-07-21 13:53 | Ultrasound Report ---
US renal/blad retro comp HISTORY: 73 years-old Female SUSSY/CKD acute on chronic kidney disease COMPARISON: CT abdomen and pelvis 12/19/2016 TECHNIQUE: Multiple real-time sonographic images of the kidneys and urinary bladder were obtained ass essing grayscale appearance and color flow FINDINGS: Limited exam secondary to patient body habitus. Right kidney measures 10.9 x 5.3 x 5.7 cm. Mild diffuse cortical thinning. No right-sided renal calcu li, hydronephrosis or suspicious mass lesion. Mildly increased echogenicity of the renal parenchyma. The left kidney measures 9.9 x 5.1 x 6.0 cm and demonstrates no renal calculi or hydronephrosis. Diff use cortical thinning of the left kidney also noted with increased echogenicity of the parenchyma. Cy st of the posterior interpolar left kidney redemonstrated, 3.4 x 3.0 x 3.0 cm. Unremarkable appearance of the urinary bladder is partially distended. Ureteral jets not identified. Incidental note is made of pathologic thickening of the fundal endometrium measuring up to 1.7 cm. IMPRESSION: 1. No renal calculi or hydronephrosis. 2. Mild left renal atrophy redemonstrated. Additionally, there is thinning of the renal cortex bilate rally with mildly echogenic appearance of the kidneys suggestive of chronic medical renal disease. 3. Incidental note is made of pathologic thickening of the fundal endometrium. Endometrial hyperplasi a versus carcinoma are the primary differential considerations. Gynecologic consultation with tissue sampling recommended. ACT 112: Negative or not required by law. The above report was generated using voice recognition software. It may contain grammatical, syntax o r spelling errors. Electronically signed by: Sumeet Vail M.D. 07/21/2019 1:52 PM
--- NOTE | 2019-07-21 14:45 | Hospitalist Progress Note ---
Date of Service July 21, 2019 Assessment & Plan (1) Olecranon bursitis of right elbow: Presented with swollen right elbow-->diagnosed with septic olecranon bursitis Erythema and swelling significantly improved now on IV Dapto, but some erythema and edema persists - Orthopedic consulted - nothing surgical at this time -continue abx and convert to po abx at time of discharge -holding statin while on Dapto -continue icing and avoidance of resting elbow on hard surfaces (2) Beta shayne toxicity: On 07/17, BP was as low as 70/60. She had received metoprolol XL, carvedilol, Entresto, and diltiazem the AM after admission due to confusion about what her actual home meds are - Given IV fluids, calcium, and was on glucagon gtt overnight. - BPs now much improved. HR was never an issue due to presence of pacer -Glucagon was weaned off - continue to hold beta-blockers and calcium channel shayne for now. -likely will eventually restart Metoprolol only due to once daily dosing and h/o questionable compliance with meds -continue tele monitoring (3) Acute kidney injury: Medical Equipment Technician up to 4.32 at peak from ATN after hypotensive episode with beta shayne toxicity as above Making urine, lytes stable, not volume overloaded Nephrology following UA with 3+ blood, no casts Renal US with MRD, no obstruction -was improved with front desk coordinator down to 3.96, now back up slightly at 4.08 UOP unclear if being accurately recorded, but she reports having normal UOP -continue to follow BMP, UOP, daily weights, BPs (4) Dysfunctional uterine bleeding: Has had intermittent post-menopausal vag bleeding over the last year, much worse lately. TVUS with thickened endometrium Biopsy of the endometrium was done on 07/16--> nondiagnostic, all blood. - RESPIRATORY CARE INSTRUCTOR feels endometrial cancer is likely. -now plan for D&C under anesthesia on 07/21 -no acute CHF, renal function improving, no ongoing ischemia or chest pain--> given necessity of procedure and relatively short time under anesthesia, seems medically stable to undergo the procedure, carefully watching BPs-discussed case with Anesthesia - Hemoglobin mildly low but improved at 11.3 today. - Monitor CBC -ok to continue Eliquis for now (5) CHF (congestive heart failure), NYHA class III: Chronic systolic heart failure with EF 20-25% in 04/2019. Patient does not appear to be in acute exacerbation. Per prior HF notes from [facility], her baseline weight is ~100 kgs. - currently at 96kg under baseline dry weight - continue to hold home medication carvedilol, diltiazem, metoprolol, and Entresto given her present hypotension (see top problem) - Hold home atorvastatin while on daptomycin - Received 500 mL IVFs on 07/17 while hypotensive. CXR on 07/18 showed no congestion. (6) AF (paroxysmal atrial fibrillation): EKG on admission shows a dual-paced rhythm. - Continue apixaban 2.5 mg p.o. twice daily. - Holding rate-control for present hypotension -> Will restart metoprolol cautiously after BP rebounds. (7) Biventricular ICD (implantable cardioverter-defibrillator) in place: EKG shows paced rhythm. - No issues at this time continue monitoring (8) CVA (cerebral vascular accident): No concern for stroke at this time. - Continue monitoring -continue Eliquis (9) Cognitive changes: Patient has mild to moderate cognitive changes per admitting provider's note. Granddaughter reports some falls at home. - Continue daily orienting patient in time space and surrounding. - PT/OT (10) Coronary artery disease: No chest pain. EKGs non-ischemic. With h/o single vessel CABG at time of valve replacement - Continue apixaban, statin on hold, metoprolol on hold (11) Depression: Patient appears to be stable. She states that her mother is on hospice but she is coping well with her issues. - Continue escitalopram 10 mg p.o. daily--> as per Pharmacist review of home meds with all bottles brought in, this was one that was recently restarted after last admission about 1 month ago -continue (12) Hypertension: - Hold home medicine as discussed above for hypotension which is now improving (13) Obstructive sleep apnea: Patient is on nasal cannula 2 L. - Continue monitoring and continue supplemental oxygen. (14) Diabetes mellitus type 2 in obese: A1c was 7.2% in 05/2019. Had hypoglycemia a few mornings, secondary to renal failure most likely - HOLD glargine - continue Sliding scale insulin (15) Asthma: Stable; no report of shortness of breath today. 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 We went through the details of her case and she will also be speaking with PROGRAM DEVELOPER later today. Denies CP, SOB, abd pain, no nausea. Elbow still sore but improved significantly as per granddaughter at bedside. Pt and granddaughter also report that she has been regurgitating her lunch ONLY almost daily for many months. She has no problems with breakfast or dinner ever. She does not lie down after eating lunch and tries not to overeat. No nausea with it. tele with paced rhythm, sinus rhythm, rates 60s Review of Systems Review of Systems: All systems reviewed & are unremarkable except as noted in HPI & below Physical Exam Constitutional: WD/WN, vitals as above + obese Eyes: + anicteric sclerae Neck: trachea midline, no thyromegaly Respiratory: normal respiratory effort, lungs clear to auscultation Cardiovascular: RRR, no murmur, no edema Chest (Breasts): Chest: normal inspection of chest Gastrointestinal (Abdomen): normal bowel sounds, soft, nontender, no hepatosplenomegaly Musculoskeletal: Extremities: + extremities abnormal to inspection (rt elbow with mildly enlarged olecrenon bursa, mild overlying erythema), no cyanosis and no clubbing Neurologic: moves all extremities and awake; no focal motor deficits Psychiatric: A+Ox3, euthymic affect Lymphatic: no lymphedema Results & Data ([facility]) Vital Signs (Past 12 Hours) Vital Signs Temp Pulse Pulse Resp BP Pulse Ox 07/21/19 07:30 36.5 C 73 20 129/80 97 07/21/19 07:29 98 H 07/21/19 04:57 36.8 C 72 20 114/73 93 Laboratory Results labs reviewed PG Care Time/CCT Total # of Minutes Spent Total Time Spent with Patient: Total time spent is greater than 50% in coordination of care (as documented) at patient's floor/unit and/or counseling patient: Coding Level of Care Code 60227 Subseq Hosp Care Lvl 3 Diagnoses Olecranon bursitis of right elbow M70.21 Beta shayne toxicity Acute kidney injury N17.9 Dysfunctional uterine bleeding N93.8 CHF (congestive heart failure), NYHA class III I50.23 Congestive heart failure chronicity: acute on chronic Congestive heart failure type: systolic AF (paroxysmal atrial fibrillation) I48.0 Biventricular ICD (implantable cardioverter-defibrillator) in place Z95.810 CVA (cerebral vascular accident) I63.9 Cognitive changes R41.89 Coronary artery disease I25.10 Associated angina: without angina Coronary Disease-Associated Artery/Lesion type: [place] artery [place] vs. transplanted heart: [place] heart Depression F33.9 Active/Remission status: remission status unspecified Depression Type: major depressive disorder Major depression recurrence: recurrent Hypertension I10 Hypertension type: essential hypertension Obstructive sleep apnea G47.33 Diabetes mellitus type 2 in obese E11.69; E66.9 Asthma J45.909 Aortic valve disorder I35.9 DVT prophylaxis Z29.9 (1) CHF (congestive heart failure), NYHA class III Congestive heart failure chronicity: acute on chronic Congestive heart failure type: systolic Qualified Code(s): I50.23 - Acute on chronic systolic (congestive) heart failure (2) Coronary artery disease Associated angina: without angina Coronary Disease-Associated Artery/Lesion type: [place] artery [place] vs. transplanted heart: [place] heart Qualified Code(s): I25.10 - Atherosclerotic heart disease of [place] coronary artery without angina pectoris (3) Depression Active/Remission status: remission status unspecified Depression Type: major depressive disorder Major depression recurrence: recurrent Qualified Code(s): F33.9 - Major depressive disorder, recurrent, unspecified (4) Hypertension Hypertension type: essential hypertension Qualified Code(s): I10 - Essential (primary) hypertension
--- NOTE | 2019-07-21 15:17 | Communication Note ---
Date of Service: July 21, 2019 I went down to say hello to the patient and see if she had any questions about her procedure tomorrow. Planned D&C/HSC for inadequate endometrial biopsy in setting of PMB and risks for hyperplasia/cancer. Patient notes that she believes the bleeding is from her blood thinner. She notes that she had episodes of bleeding when she started blood thinners before. She notes she had a procedure after one of these that ruled out cancer. Noted that it might not be the same now as then. she notes this episode of bleeding started at about the same time she started the Eliquis. I explained to the patient that she has risk factors for cancer, that the biopsy was not conclusive and does not r/o cancer, that the ultrasound pictures are not very helpful with an obscured endometrium. Discussed the risk of waiting is delayed diagnosis, progression of disease, poorer prognosis. Discussed the risks of surgery (anesthesia, infection, bleeding, perforation, need for further surgery) and the benefit of ruling in or out cancer. Discussed that she has been determined to be an adequate surgical risk from both her primary teams standpoint and anesthesia. Patient's granddaughter is with her. she questions about a normal white blood cell count, and I noted not something that helps us in a cancer diagnosis and can be normal in cancer. Discussed that the biopsy did not show cancer, in fact there were no endometrial cells noted at all. Explained that the biopsy did not help us one way or another in making the diagnosis as not diagnostic. Patient notes her daughter is coming up from [place] and she would like to discuss the situation with her and talk again with Dr. Portillo. I made doctor Lindsey aware and he will be over after his clinic today.
--- NOTE | 2019-07-21 17:22 | Gynecologic Progress Note ---
Date of Service July 21, 2019 Assessment & Plan (1) Post-menopausal bleeding: Discussed with the patient and patient's family rationale behind the planned incision. 5 suspicion for a endometrial process causing her bleeding. High suspicion that this may represent an endometrial carcinoma. While there is risks associated with her surgery, this should be a short surgery and I believe the benefits outweigh the risks. I have also suggested to the patient that we place a progesterone IUD intraoperatively to suppress any growth of tissue on the endometrial lining. Risks and benefits of that have been discussed. All questions answered of the patient and her family. The patient wants to proceed with the D&C and IUD placement. Admission and Anticipated Discharge Date Admission Date: July 18, 2019 Anticipated date of discharge: 07/23/19 Subjective Patient with no questions about planned surgery Results & Data ([facility]) Vital Signs (Past 12 Hours) Vital Signs Temp Pulse Pulse Resp BP BP Pulse Ox 07/21/19 15:23 61 07/21/19 15:13 97.5 F L 66 16 112/72 95 07/21/19 07:30 97.7 F 73 20 129/80 97 07/21/19 07:29 98 H PG Care Time/CCT Total # of Minutes Spent Total Time Spent with Patient: Total time spent is greater than 50% in coordination of care (as documented) at patient's floor/unit and/or counseling patient: Coding Level of Care Code 68655 Subseq Hosp Care Lvl 2 Diagnoses Post-menopausal bleeding N95.0
[2019-07-21] MEDS: DAPTOmycin 400 MG in SYRINGE 0 ML IV SCH (17:34)
[2019-07-22 05:56] LABS: Basophils # (auto) 0.02 K/uL (0-0.2); Basophils % (auto) 0.3 %; Eosinophils # (auto) 0.33 K/uL (0-0.5); Eosinophils % (auto) 5.6 %; Hematocrit (blood only) 33.1 % (37-47); Hemoglobin 10.5 g/dL (12.0-16.0); Immature Granulocytes # (auto) 0.01 K/uL (0.00-0.02); Immature Granulocytes % (auto) 0.2 %; Lymphocytes # (auto) 1.16 K/uL (1.2-3.4); Lymphocytes % (auto) 19.6 %; Mean Corpuscular Hemoglobin 27.8 pg (25-34); Mean Corpuscular Hgb Conc 31.7 g/dL (32-36); Mean Corpuscular Volume 87.6 fL (80-100); Mean Platelet Volume 8.7 fL (7.4-10.4); Monocytes # (auto) 0.46 K/uL (0.11-0.59); Monocytes % (auto) 7.8 %; Neutrophils # (auto) 3.93 K/uL (1.4-6.5); Neutrophils % (auto) 66.5 %; Platelet Count 230 K/uL (130-400); RDW Coefficient of Variation 14.6 % (11.5-14.5); RDW Standard Deviation 46.8 fL (36.4-46.3); Red Blood Count 3.78 M/uL (4.2-5.4); White Blood Count 5.91 K/uL (4.8-10.8)
[2019-07-22] MEDS ORDERED: SODIUM CHLORIDE 0.9% 1000ML 1,000 ML IV SCH (06:00)
[2019-07-22 06:23] LABS: BUN Creatinine Ratio 15.2 (10-20); Calcium 9.1 mg/dl (8.5-10.1); Creatinine Clr Calc Pharmacy 14.6 ml/min; Est GFR (African American) 13.8; Est GFR (Non-African American) 11.9; Potassium 4.5 mmol/L (3.5-5.1)
[2019-07-22] MEDS ORDERED: LIDOCAINE HCL 2% 2 ML VIAL/AMP(20MG/ML) INFIL ONE (06:50)
[2019-07-22] MEDS ORDERED: ONDANSETRON INJ 2 MG/ML 2 ML VIAL ONE (06:50)
[2019-07-22] MEDS ORDERED: PROPOFOL IV EMULSION 10 MG/ML 20 ML VIAL IV ONE (06:50)
[2019-07-22] MEDS ORDERED: fentaNYL citrate 100 MCG/2 ML VIAL ONE (06:50)
--- NOTE | 2019-07-22 07:24 | History & Physical Bridge Note ---
Date of Service July 22, 2019 History & Physical Bridge Note I have examined the patient, reviewed the History & Physical and in the interval since the performance of the History & Physical I have noted the following changes of clinical significance: no changes noted
--- NOTE | 2019-07-22 08:12 | Post Operative Brief Note ---
PG Immediate Post Op with CF Date of Surgery July 22, 2019 Pre & Post Diagnosis Operation Date: 07/22/19 07:15 Pre-Op Diagnosis: Post-menopausal bleeding Post-Op Diagnosis: Post-menopausal bleeding I identified the patient and participated in the time-out.: Yes Procedure Operation Date: 07/22/19 07:15 Actual Procedures p Dilation and Curettage(Not Applicable) - Todd Portillo Jr, MD, FACOG s Diagnotisic Hysteroscopy, Mirena Intrauterine Device Insertion(Not Applicable) - Todd Portillo Jr, MD, FACOG Surgeon Todd Portillo Jr, MD, FACOG Sheet Metal Mechanic None Estimated Blood Loss 0 Findings See Below (tissue excised and sent, Mirena IUD placed) Specimens Specimen Description: A. Endometrial curettings endocervical
[2019-07-22] MEDS ORDERED: HYDROmorphone INJ 2 MG/ML SYR/VIAL IV PRN ×2 (08:16→08:17)
[2019-07-22] MEDS ORDERED: ATROPINE SULFATE 0.1 MG/ML 10ML SYR IV PRN ×2 (08:16→08:17)
[2019-07-22] MEDS ORDERED: ePHEDrine sulfate 50 MG/ML AMP IV PRN ×2 (08:16→08:17)
[2019-07-22] MEDS ORDERED: fentaNYL citrate 100 MCG/2 ML VIAL IV PRN ×2 (08:16→08:17)
[2019-07-22] MEDS ORDERED: ONDANSETRON INJ 2 MG/ML 2 ML VIAL IV STA (08:54)
[2019-07-22] MEDS ORDERED: ONDANSETRON INJ 2 MG/ML 2 ML VIAL IV PRN (08:58)
--- NOTE | 2019-07-22 09:14 | Anesthesiology Progress Note ---
Date of Service July 22, 2019 Anesthesia Post Procedure Vital Signs Vital Signs: Temp Pulse Pulse Pulse Resp BP BP 07/22/19 09:05 36.0 C L 60 15 129/79 07/22/19 08:55 61 15 132/74 07/22/19 08:45 61 17 133/74 07/22/19 08:35 60 12 136/79 07/22/19 08:26 36.0 C L 75 16 162/87 H 07/22/19 06:49 36.7 C 67 20 07/22/19 03:05 36.6 C 73 19 118/75 07/21/19 23:59 69 07/21/19 23:18 36.6 C 80 20 137/78 07/21/19 18:55 36.7 C 73 20 07/21/19 15:23 61 07/21/19 15:13 36.4 C L 66 16 BP Pulse Ox 07/22/19 09:05 99 07/22/19 08:55 99 07/22/19 08:45 100 07/22/19 08:35 100 07/22/19 08:26 99 07/22/19 06:49 130/67 97 07/22/19 03:05 98 07/21/19 23:59 07/21/19 23:18 97 07/21/19 18:55 126/77 94 07/21/19 15:23 07/21/19 15:13 112/72 95 Pain Intensity Pelvic: Pain Intensity: 0 Right Elbow: Pain Intensity: 2 Transfer of Care Handoff Completed per policy Notes Mental Status: alert / awake / arousable and participated in evaluation Patient Amnestic to Procedure: Yes Nausea / Vomiting: adequately controlled Pain: adequately controlled Airway Patency, RR, SpO2: stable & adequate BP & HR: stable & adequate Hydration State: stable & adequate Anesthetic Complications: no major complications apparent and Pt Satisfied with anesthetic care
[2019-07-22] MEDS: INSULIN ASPART 100 UNITS/ML 3 ML PEN SC SCH ×4 (09:37→21:04)
[2019-07-22] MEDS: FLUTICASONE/VILANTEROL 100/25MCG 14 PUFFS/INHALER INH SCH (10:14)
[2019-07-22] MEDS: ASCORBIC ACID 500 MG TAB PO SCH (10:15)
[2019-07-22] MEDS: APIXABAN 2.5 MG TAB PO SCH ×2 (10:15→21:35)
[2019-07-22] MEDS: CHOLECALCIFEROL 1,000 UNITS 25 MCG TAB PO SCH (10:15)
[2019-07-22] MEDS: ESCITALOPRAM OXALATE 10 MG TAB PO SCH (10:15)
--- NOTE | 2019-07-22 10:41 | Nephrology Progress Note ---
Date of Service July 22, 2019 Assessment & Plan (1) Acute kidney injury: -- SUSSY/CKD due to hemodynamic ATN. Time course of increase in creatinine correlates w/ recent hypotensive episode. Blood pressure has stabilized. Cr has improved to 3.5 Volume status and electrolyte balance are acceptable. No acute indication for HD. -- Urinalysis reviewed. No ATN casts. Hematuria related to catheterized sample -- Repeat PRP in am -- Renal US 07/20: R 10.9, L 9.9. No kidney stones or hydronephrosis (2) Chronic kidney disease, stage 4 (severe): -- Baseline Cr 2.2 (3) Vaginal bleeding: -- D&C completed. Await histology results (4) Olecranon bursitis of right elbow: -- Improving w/ Daptomycin therapy (5) Cardiomyopathy: -- h/o idiopathic dilated CMP and aortic aneurysm s/p aortic graft w/ AVR and CABG x1 Subjective Ms. Quick was seen & examined in her hospital room this morning. She had just returned from her D&C. Multiple family members present. Ms. Quick reports brisk UO. She voices no medical concerns Review of Systems Constitutional: + weakness; no fever Eyes: no worsening vision and no problem reported Ear, Nose, Mouth, Throat: no problem reported Respiratory: no cough and no dyspnea Cardiovascular: no chest pain, no palpitations and no edema Gastrointestinal: no abdominal pain, no nausea, no vomiting and no diarrhea/loose stools Genitourinary: no dysuria and no hematuria Musculoskeletal: no back pain Integumentary: no rash Neurologic: no falls, no dizziness and no confusion Physical Exam Constitutional: + obese; not in distress Eyes: PERRL, conjunctivae normal, anicteric sclerae ENMT: external ear and nose normal, oropharynx normal Neck: trachea midline, no thyromegaly Respiratory: normal respiratory effort, lungs clear to auscultation Cardiovascular: RRR, no murmur, no edema Gastrointestinal (Abdomen): normal bowel sounds, soft, nontender, no hepatosplenomegaly Musculoskeletal: Extremities: no cyanosis Skin: no erythema (R elbow) Neurologic: awake; not confused Results & Data Vital Signs (Past 12 Hours) Vital Signs Temp Pulse Pulse Pulse Resp BP BP 07/22/19 09:35 60 18 117/66 03/12/20 09:20 36.6 C 60 20 119/63 07/22/19 09:05 36.0 C L 60 15 129/79 07/22/19 08:55 61 15 132/74 07/22/19 08:45 61 17 133/74 07/22/19 08:35 60 12 136/79 07/22/19 08:26 36.0 C L 75 16 162/87 H 07/22/19 06:49 36.7 C 67 20 07/22/19 03:05 36.6 C 73 19 118/75 07/21/19 23:59 69 07/21/19 23:18 36.6 C 80 20 137/78 BP Pulse Ox 07/22/19 09:35 97 07/22/19 09:20 97 07/22/19 09:05 99 07/22/19 08:55 99 07/22/19 08:45 100 07/22/19 08:35 100 07/22/19 08:26 99 07/22/19 06:49 130/67 97 07/22/19 03:05 98 07/21/19 23:59 07/21/19 23:18 97 Laboratory Results Laboratory Tests 07/21/19 07/22/19 07/22/19 12:30 05:42 05:42 WBC 5.91 Hgb 10.5 L Hct 33.1 L Plt Count 230 Sodium 140 Potassium 4.5 Chloride 107 Carbon Dioxide 28 BUN 54 H Creatinine 3.54 H D Glucose 87 Urine Color Red Urine Appearance Cloudy A Ur Specific [place] 1.016 Urine Glucose (UA) Negative Urine Ketones Negative Urine Blood 3+ H Urine Nitrite Negative Urine WBC (Auto) >30 H Urine RBC (Auto) >30 H Urine Bacteria (Auto) Negative PG Care Time/CCT Total # of Minutes Spent Total Time Spent with Patient: Total time spent is greater than 50% in coordination of care (as documented) at patient's floor/unit and/or counseling patient: Coding Level of Care Code 10602 Subseq Hosp Care Lvl 3 Diagnoses Acute kidney injury N17.9 Chronic kidney disease, stage 4 (severe) N18.4 Vaginal bleeding N93.9 Olecranon bursitis of right elbow M70.21 Cardiomyopathy I42.9
--- NOTE | 2019-07-22 11:36 | Operative Report (OR) ---
DATE OF OPERATION: 07/22/2019 PREOPERATIVE DIAGNOSIS: Postmenopausal bleeding. POSTOPERATIVE DIAGNOSIS: Postmenopausal bleeding. PROCEDURES PERFORMED: 1. Diagnostic hysteroscopy. 2. D and C. 3. Mirena IUD placement. SURGEON: Todd Portillo MD. ANESTHESIA: General. FINDINGS: Hysteroscopic examination of the endometrium showed a hemorrhagic wall with some polypoid tissue. D and C of tissue performed and sent for pathological evaluation. Repeat hysteroscopy showed a denuded endometrium. Mirena IUD placed. PROCEDURE IN DETAIL: The patient was taken to the operating room and after general anesthesia, was placed in dorsal lithotomy position and draped and prepped in the usual fashion. Bladder was drained of any residual urine. Single tooth tenaculum was used to grasp the anterior lip of the cervix. The cervical os was dilated with Mayer dilators to a Mayer #25 and the MyoSure operative scope was inserted into the endometrial cavity. Endometrial cavity was visualized with the description as above. Hysteroscope was removed. Curettage was performed and sent for pathological evaluation. Repeat hysteroscopic examination showed a denuded endometrium. Uterus sounded to 8 cm, Mirena IUD inserted and deployed, string trimmed and cut. The patient was taken out of dorsal lithotomy to recovery room in satisfactory condition. I attest to the content of the Intraoperative Record and any orders documented therein. Any exception s are noted below.
--- NOTE | 2019-07-22 16:41 | Hospitalist Progress Note ---
Date of Service July 22, 2019 Assessment & Plan (1) Olecranon bursitis of right elbow: Presented with swollen right elbow-->diagnosed with septic olecranon bursitis Erythema and swelling significantly improved now on IV Dapto, but some erythema and edema persists - Orthopedic consulted - nothing surgical at this time -continue abx and convert to po abx at time of discharge likely with keflex and doxy -holding statin while on Dapto -continue icing and avoidance of resting elbow on hard surfaces (2) Beta shayne toxicity: On 07/17, BP was as low as 70/60. She had received metoprolol XL, carvedilol, Entresto, and diltiazem the AM after admission due to confusion about what her actual home meds are - Given IV fluids, calcium, and was on glucagon gtt overnight x 1 night. - BPs now much improved. HR was never an issue due to presence of pacer -Glucagon was weaned off - continue to hold beta-blockers and calcium channel shayne for now. 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 TVUS with thickened endometrium Biopsy of the endometrium was done on 07/16--> nondiagnostic, all blood. - CARTON FILLER feels endometrial cancer is likely. -now s/p D&C with Mirena IUD placement on 07/21-await biopsy results - Hemoglobin mildly low at 10.5 - Monitor CBC -ok to continue Eliquis for now (5) CHF (congestive heart failure), NYHA class III: Chronic systolic heart failure with EF 20-25% in 04/2019. Patient does not appear to be in acute exacerbation. Per prior HF notes from [facility], her baseline weight is ~100 kgs. - continue to hold home medication carvedilol, diltiazem, metoprolol, and Entresto given her present hypotension (see top problem) - Hold home atorvastatin while on daptomycin - Received 500 mL IVFs on 07/17 while hypotensive. CXR on 07/18 showed no congestion. -will start Toprol XL at some point (6) AF (paroxysmal atrial fibrillation): EKG on admission shows a dual-paced rhythm. - Continue apixaban 2.5 mg p.o. twice daily. - Holding rate-control for present hypotension -> Will restart metoprolol cautiously after BP rebounds. (7) Biventricular ICD (implantable cardioverter-defibrillator) in place: EKG shows paced rhythm. - No issues at this time continue monitoring (8) CVA (cerebral vascular accident): No concern for stroke at this time. - Continue monitoring -continue Eliquis (9) Cognitive changes: Patient has mild to moderate cognitive changes per admitting provider's note. Granddaughter reports some falls at home. - Continue daily orienting patient in time space and surrounding. - PT/OT (10) Coronary artery disease: No chest pain. EKGs non-ischemic. With h/o single vessel CABG at time of valve replacement - Continue apixaban, statin on hold, metoprolol on hold (11) Depression: Patient appears to be stable. She states that her mother is on hospice but she is coping well with her issues. - Continue escitalopram 10 mg p.o. daily--> as per Pharmacist review of home meds with all bottles brought in, this was one that was recently restarted after last admission about 1 month ago -continue (12) Hypertension: - Hold home medicine as discussed above for hypotension which is now improving (13) Obstructive sleep apnea: Patient is on nasal cannula 2 L. - Continue monitoring and continue supplemental oxygen. (14) Diabetes mellitus type 2 in obese: A1c was 7.2% in 05/2019. Had hypoglycemia a few mornings, secondary to renal failure most likely - HOLD glargine - continue Sliding scale insulin (15) Asthma: Stable; no report of shortness of breath today. 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 Otherwise tolerates meals. Unclear reason, could be reflux -start Pepcid 20mg daily (renally dosed) -check Barium swallow tomorrow (18) DVT prophylaxis: On apixaban for afib-ok to continue as per DRAFTER APPRENTICE for upcoming procedure Dispo-continued stay on med-tele for continued monitoring of renal function Plan is for home with Home Health Admission and Anticipated Discharge Date Admission Date: July 18, 2019 Anticipated date of discharge: 07/24/19 Subjective Feeling well. Had her D&C this morning and tolerated well. Has a bit of a sore throat since then. Having some mild vag bleeding since then. no abd pain. Had Mirena IUD placed as well. Denies CP or SOB. Tele with paced rhythm, sinus rhythm, rates in the 60s Review of Systems Review of Systems: All systems reviewed & are unremarkable except as noted in HPI & below Physical Exam Constitutional: WD/WN, vitals as above + obese Eyes: + anicteric sclerae Neck: trachea midline, no thyromegaly Respiratory: normal respiratory effort, lungs clear to auscultation Cardiovascular: Rate/Rhythm: regular rate and regular rhythm Heart Sounds: + murmur Extremities: + edema (trace pitting edema legs bilat) Chest (Breasts): Chest: normal inspection of chest Gastrointestinal (Abdomen): normal bowel sounds, soft, nontender, no hepatosplenomegaly Musculoskeletal: Extremities: + extremities abnormal to inspection (rt elbow with mildly enlarged olecrenon bursa, mild overlying erythema,+TTP), no cyanosis and no clubbing erythema of elbow improved from previous Neurologic: moves all extremities and awake; no focal motor deficits Psychiatric: A+Ox3, euthymic affect Lymphatic: no lymphedema Results & Data ([facility]) Vital Signs (Past 12 Hours) Vital Signs Temp Pulse Pulse Pulse Resp BP BP 07/22/19 15:55 36.6 C 61 20 143/82 H 07/22/19 15:07 60 07/22/19 12:00 36.4 C L 60 18 113/74 07/22/19 11:00 60 20 119/68 07/22/19 10:00 60 18 117/68 07/22/19 09:35 60 18 117/66 07/22/19 09:20 36.6 C 60 20 119/63 07/22/19 09:05 36.0 C L 60 15 129/79 07/22/19 08:55 61 15 132/74 07/22/19 08:45 61 17 133/74 07/22/19 08:35 60 12 136/79 07/22/19 08:26 36.0 C L 75 16 162/87 H 07/22/19 06:49 36.7 C 67 20 BP Pulse Ox 07/22/19 15:55 96 07/22/19 15:07 07/22/19 12:00 97 07/22/19 11:00 98 07/22/19 10:00 96 07/22/19 09:35 97 07/22/19 09:20 97 07/22/19 09:05 99 07/22/19 08:55 99 07/22/19 08:45 100 07/22/19 08:35 100 07/22/19 08:26 99 07/22/19 06:49 130/67 97 Laboratory Results 07/22/19 07/22/19 07/22/19 Range/Units 11:44 08:36 05:42 WBC (4.8-10.8) K/uL RBC (4.2-5.4) M/uL Hgb (12.0-16.0) g/dL Hct (37-47) % MCV (80-100) fL MCH (25-34) pg MCHC (32-36) g/dL RDW Std Deviation (36.4-46.3) fL RDW Coeff of Chriss (11.5-14.5) % Plt Count (130-400) K/uL MPV (7.4-10.4) fL Immature Gran % (Auto) % Neut % (Auto) % Lymph % (Auto) % [place] % (Auto) % Eos % (Auto) % Baso % (Auto) % Immature Gran # (Auto) (0.00-0.02) K/uL Neut # (Auto) (1.4-6.5) K/uL Lymph # (Auto) (1.2-3.4) K/uL [place] # (Auto) (0.11-0.59) K/uL Eos # (Auto) (0-0.5) K/uL Baso # (Auto) (0-0.2) K/uL Sodium 140 (136-145) mmol/L Potassium 4.5 (3.5-5.1) mmol/L Chloride 107 (98-107) mmol/L Carbon Dioxide 28 (21-32) mmol/L Anion Gap 5.0 (3-11) BUN 54 H (7-18) mg/dl Creatinine 3.54 H D (0.6-1.2) mg/dl Est Cr Clr Drug Dosing 14.6 ml/min Est GFR ( Amer) 13.8 Est GFR (Non-Af Amer) 11.9 BUN/Creatinine Ratio 15.2 (10-20) Glucose 87 (70-99) mg/dl POC Glucose 117 H 102 H (70-99) mg/dl Calcium 9.1 (8.5-10.1) mg/dl 07/22/19 07/21/19 Range/Units 05:42 20:16 WBC 5.91 (4.8-10.8) K/uL RBC 3.78 L (4.2-5.4) M/uL Hgb 10.5 L (12.0-16.0) g/dL Hct 33.1 L (37-47) % MCV 87.6 (80-100) fL MCH 27.8 (25-34) pg MCHC 31.7 L (32-36) g/dL RDW Std Deviation 46.8 H (36.4-46.3) fL RDW Coeff of Chriss 14.6 H (11.5-14.5) % Plt Count 230 (130-400) K/uL MPV 8.7 (7.4-10.4) fL Immature Gran % (Auto) 0.2 % Neut % (Auto) 66.5 % Lymph % (Auto) 19.6 % [place] % (Auto) 7.8 % Eos % (Auto) 5.6 % Baso % (Auto) 0.3 % Immature Gran # (Auto) 0.01 (0.00-0.02) K/uL Neut # (Auto) 3.93 (1.4-6.5) K/uL Lymph # (Auto) 1.16 L (1.2-3.4) K/uL [place] # (Auto) 0.46 (0.11-0.59) K/uL Eos # (Auto) 0.33 (0-0.5) K/uL Baso # (Auto) 0.02 (0-0.2) K/uL Sodium (136-145) mmol/L Potassium (3.5-5.1) mmol/L Chloride (98-107) mmol/L Carbon Dioxide (21-32) mmol/L Anion Gap (3-11) BUN (7-18) mg/dl Creatinine (0.6-1.2) mg/dl Est Cr Clr Drug Dosing ml/min Est GFR ( Amer) Est GFR (Non-Af Amer) BUN/Creatinine Ratio (10-20) Glucose (70-99) mg/dl POC Glucose 100 H (70-99) mg/dl Calcium (8.5-10.1) mg/dl PG Care Time/CCT Total # of Minutes Spent Total Time Spent with Patient: Total time spent is greater than 50% in coordination of care (as documented) at patient's floor/unit and/or counseling patient: Coding Level of Care Code 01727 Subseq Hosp Care Lvl 3 Diagnoses Olecranon bursitis of right elbow M70.21 Beta shayne toxicity Acute kidney injury N17.9 Dysfunctional uterine bleeding N93.8 CHF (congestive heart failure), NYHA class III I50.23 Congestive heart failure type: systolic Congestive heart failure chronicity: acute on chronic AF (paroxysmal atrial fibrillation) I48.0 Biventricular ICD (implantable cardioverter-defibrillator) in place Z95.810 CVA (cerebral vascular accident) I63.9 Cognitive changes R41.89 Coronary artery disease I25.10 Coronary Disease-Associated Artery/Lesion type: [place] artery [place] vs. transplanted heart: [place] heart Associated angina: without angina Depression F33.9 Depression Type: major depressive disorder Major depression recurrence: recurrent Active/Remission status: remission status unspecified Hypertension I10 Hypertension type: essential hypertension Obstructive sleep apnea G47.33 Diabetes mellitus type 2 in obese E11.69; E66.9 Asthma J45.909 Aortic valve disorder I35.9 Vomiting R11.10 DVT prophylaxis Z29.9 (1) CHF (congestive heart failure), NYHA class III Congestive heart failure type: systolic Congestive heart failure chronicity: acute on chronic Qualified Code(s): I50.23 - Acute on chronic systolic (congestive) heart failure (2) Coronary artery disease Coronary Disease-Associated Artery/Lesion type: [place] artery [place] vs. transplanted heart: [place] heart Associated angina: without angina Qualified Code(s): I25.10 - Atherosclerotic heart disease of [place] coronary artery without angina pectoris (3) Depression Depression Type: major depressive disorder Major depression recurrence: recurrent Active/Remission status: remission status unspecified Qualified Code(s): F33.9 - Major depressive disorder, recurrent, unspecified (4) Hypertension Hypertension type: essential hypertension Qualified Code(s): I10 - Essential (primary) hypertension
--- NOTE | 2019-07-23 06:56 | Gynecologic Progress Note ---
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 Physical Exam: Pathology Report: pending Results & Data ([facility]) Vital Signs (Past 12 Hours) Vital Signs Temp Pulse Pulse Resp BP Pulse Ox 07/23/19 06:33 98.1 F 66 20 120/73 99 07/23/19 02:50 98.6 F 65 19 98/65 L 93 07/22/19 23:26 97.5 F L 84 20 124/77 96 07/22/19 22:20 67 07/22/19 19:46 97.9 F 72 16 109/73 98 PG Care Time/CCT Total # of Minutes Spent Total Time Spent with Patient: Total time spent is greater than 50% in coordination of care (as documented) at patient's floor/unit and/or counseling patient: Coding Level of Care Code 02724 Subseq Hosp Care Lvl 1 Diagnoses Post-menopausal bleeding N95.0
[2019-07-23 07:33] LABS: Basophils # (auto) 0.03 K/uL (0-0.2); Basophils % (auto) 0.6 %; Eosinophils # (auto) 0.26 K/uL (0-0.5); Eosinophils % (auto) 4.8 %; Hematocrit (blood only) 34.4 % (37-47); Hemoglobin 10.7 g/dL (12.0-16.0); Immature Granulocytes # (auto) 0.01 K/uL (0.00-0.02); Immature Granulocytes % (auto) 0.2 %; Lymphocytes # (auto) 1.12 K/uL (1.2-3.4); Lymphocytes % (auto) 20.6 %; Mean Corpuscular Hemoglobin 27.4 pg (25-34); Mean Corpuscular Hgb Conc 31.1 g/dL (32-36); Mean Platelet Volume 8.6 fL (7.4-10.4); Monocytes # (auto) 0.47 K/uL (0.11-0.59); Monocytes % (auto) 8.6 %; Neutrophils # (auto) 3.55 K/uL (1.4-6.5); Neutrophils % (auto) 65.2 %; Platelet Count 221 K/uL (130-400); RDW Coefficient of Variation 14.9 % (11.5-14.5); RDW Standard Deviation 47.8 fL (36.4-46.3); Red Blood Count 3.91 M/uL (4.2-5.4); White Blood Count 5.44 K/uL (4.8-10.8)
--- NOTE | 2019-07-23 07:34 | Communication Note ---
Date of Service: July 23, 2019 I was paged that Isabel Quick was experiencing chest pain and tightness across the center of her chest. I went up to evaluate ms Quick and found her to be in no acute distress and with completely reproducible chest pain with pressure on her sternum. Reviewing a stat ECG I found no new signs of any ischemic disease. Patient is comfortable at this time and has no desire for any pain medication.
[2019-07-23 08:10] LABS: BUN Creatinine Ratio 15.7 (10-20); Calcium 9.4 mg/dl (8.5-10.1); Creatinine Clr Calc Pharmacy 16.5 ml/min; Est GFR (African American) 15.6; Est GFR (Non-African American) 13.4; Potassium 5.2 mmol/L (3.5-5.1)
--- NOTE | 2019-07-23 08:22 | Anesthesiology Progress Note ---
Date of Service July 23, 2019 Anesthesia Post Procedure Vital Signs Vital Signs: Temp Pulse Pulse Pulse Resp BP BP 07/23/19 06:33 36.7 C 66 20 120/73 07/23/19 02:50 37.0 C 65 19 98/65 L 07/22/19 23:26 36.4 C L 84 20 124/77 07/22/19 22:20 67 07/22/19 19:46 36.6 C 72 16 109/73 07/22/19 15:55 36.6 C 61 20 143/82 H 07/22/19 15:07 60 07/22/19 12:00 36.4 C L 60 18 113/74 07/22/19 11:00 60 20 119/68 07/22/19 10:00 60 18 117/68 07/22/19 09:35 60 18 117/66 07/22/19 09:20 36.6 C 60 20 119/63 07/22/19 09:05 36.0 C L 60 15 129/79 07/22/19 08:55 61 15 132/74 07/22/19 08:45 61 17 133/74 07/22/19 08:35 60 12 136/79 07/22/19 08:26 36.0 C L 75 16 162/87 H Pulse Ox 07/23/19 06:33 99 07/23/19 02:50 93 07/22/19 23:26 96 07/22/19 22:20 07/22/19 19:46 98 07/22/19 15:55 96 07/22/19 15:07 07/22/19 12:00 97 07/22/19 11:00 98 07/22/19 10:00 96 07/22/19 09:35 97 07/22/19 09:20 97 07/22/19 09:05 99 07/22/19 08:55 99 07/22/19 08:45 100 07/22/19 08:35 100 07/22/19 08:26 99 Pain Intensity Pelvic: Pain Intensity: 0 Right Elbow: Pain Intensity: 2 Notes Mental Status: alert / awake / arousable and participated in evaluation Patient Amnestic to Procedure: Yes Nausea / Vomiting: adequately controlled Pain: adequately controlled Airway Patency, RR, SpO2: stable & adequate BP & HR: stable & adequate Hydration State: stable & adequate Anesthetic Complications: no major complications apparent and Pt Satisfied with anesthetic care
--- NOTE | 2019-07-23 08:38 | Fluoroscopy Report ---
DOUBLE CONTRAST BARIUM ESOPHAGRAM CLINICAL HISTORY: Dysphagia with solids. Cough during meals and while drinking. COMPARISON STUDY: No priors.. TECHNIQUE: A standard air contrast barium esophagram is initiated. Multiple spot images of the esopha zoe are acquired. The examination was discontinued as the patient aspirated. FINDINGS: The patient swallowed barium without difficulty. The mucosal pattern is normal. Moderate dy smotility is noted in the mid to distal esophagus. There is no evidence of intrinsic or extrinsic mas s lesion. Aspiration was identified and the examination was discontinued. The gastroesophageal junct ion distended normally. No gastroesophageal reflux was observed during the completed portion of the e xamination. Midline sternotomy wires and pacemaker leads are noted. Fluoroscopy time: 0.5 minutes. Fluoroscopic images: 25 IMPRESSION: 1. Aspiration was identified and the examination was discontinued. 2. The esophagus is morphologically normal as visualized. 3. Moderate esophageal dysmotility. ACT 112: Negative or not required by law. Electronically signed by: Johan Martinez M.D. 07/23/2019 8:37 AM
[2019-07-23] MEDS: INSULIN ASPART 100 UNITS/ML 3 ML PEN SC SCH ×4 (09:29→21:18)
--- NOTE | 2019-07-23 09:30 | Nephrology Progress Note ---
Date of Service July 23, 2019 Assessment & Plan (1) Acute kidney injury: -- SUSSY/CKD due to hemodynamic ATN. Time course of increase in creatinine correlates w/ recent hypotensive episode. Blood pressure has stabilized. Cr has improved to 3.2 Patient is nonoliguric. Volume status and electrolyte balance are acceptable. No acute indication for HD. -- Potassium is mildly elevated. Recommend adding low potassium restriction to diet order -- Urinalysis reviewed. No ATN casts. Hematuria related to recent D&C -- Renal US 07/20: R 10.9, L 9.9. No kidney stones or hydronephrosis -- Repeat PRP in am (2) Chronic kidney disease, stage 4 (severe): -- Baseline Cr 2.2 (3) Vaginal bleeding: -- D&C completed. Await histology results (4) Olecranon bursitis of right elbow: -- Improving w/ Daptomycin therapy (5) Cardiomyopathy: -- h/o idiopathic dilated CMP and aortic aneurysm s/p aortic graft w/ AVR and CABG x1 Subjective Ms. Quick was seen & examined in her hospital room this morning. She is still having vaginal bleeding. Ms. Quick denies uremic symptoms. Her olecranon bursitis is subjectively improved Review of Systems Constitutional: + weakness; no fever Eyes: no worsening vision and no problem reported Ear, Nose, Mouth, Throat: no problem reported Respiratory: no cough and no dyspnea Cardiovascular: no chest pain, no palpitations and no edema Gastrointestinal: no abdominal pain, no nausea, no vomiting and no diarrhea/loose stools Genitourinary: no dysuria and no hematuria Musculoskeletal: no back pain Integumentary: no rash Neurologic: no falls, no dizziness and no confusion Physical Exam Constitutional: + obese; not in distress Eyes: PERRL, conjunctivae normal, anicteric sclerae ENMT: external ear and nose normal, oropharynx normal Neck: trachea midline, no thyromegaly Respiratory: normal respiratory effort, lungs clear to auscultation Cardiovascular: RRR, no murmur, no edema Gastrointestinal (Abdomen): normal bowel sounds, soft, nontender, no hepatosplenomegaly Musculoskeletal: Extremities: no cyanosis Skin: no erythema (R elbow) Neurologic: awake; not confused Results & Data Vital Signs (Past 12 Hours) Vital Signs Temp Pulse Pulse Resp BP Pulse Ox 07/23/19 06:33 36.7 C 66 20 120/73 99 07/23/19 02:50 37.0 C 65 19 98/65 L 93 07/22/19 23:26 36.4 C L 84 20 124/77 96 07/22/19 22:20 67 Laboratory Results Laboratory Tests 07/23/19 07/23/19 07:17 07:17 WBC 5.44 Hgb 10.7 L Hct 34.4 L Plt Count 221 Sodium 141 Potassium 5.2 H D Chloride 107 Carbon Dioxide 31 BUN 50 H Creatinine 3.21 H D Glucose 93 PG Care Time/CCT Total # of Minutes Spent Total Time Spent with Patient: Total time spent is greater than 50% in coordination of care (as documented) at patient's floor/unit and/or counseling patient: Coding Level of Care Code 70751 Subseq Hosp Care Lvl 3 Diagnoses Acute kidney injury N17.9 Chronic kidney disease, stage 4 (severe) N18.4 Vaginal bleeding N93.9 Olecranon bursitis of right elbow M70.21 Cardiomyopathy I42.9
[2019-07-23] MEDS: FLUTICASONE/VILANTEROL 100/25MCG 14 PUFFS/INHALER INH SCH (09:34)
[2019-07-23] MEDS: ASCORBIC ACID 500 MG TAB PO SCH (10:39)
[2019-07-23] MEDS: FAMOTIDINE 20 MG TAB PO SCH (10:39)
[2019-07-23] MEDS: ESCITALOPRAM OXALATE 10 MG TAB PO SCH (10:39)
[2019-07-23] MEDS: CHOLECALCIFEROL 1,000 UNITS 25 MCG TAB PO SCH (10:39)
--- NOTE | 2019-07-23 12:01 | Electrocardiogram Report ---
Test Reason : Blood Pressure : / mmHG Vent. Rate : 060 BPM Atrial Rate : 060 BPM P-R Int : 170 ms QRS Dur : 146 ms QT Int : 496 ms P-R-T Axes : 102 212 066 degrees QTc Int : 496 ms AV dual-paced rhythm Abnormal ECG When compared with ECG of 19-JUL-2019 06:50, Vent. rate has decreased BY 9 BPM Confirmed by Joel Garcia [id number] on 07/23/2019 12:01:01 PM Referred By: REFERRED SELF Confirmed By:Joel Garcia
[2019-07-23] MEDS: APIXABAN 2.5 MG TAB PO SCH ×2 (12:29→21:17)
[2019-07-23] MEDS: DAPTOmycin 400 MG in SYRINGE 0 ML IV SCH (17:24)
--- NOTE | 2019-07-23 18:34 | Hospitalist Progress Note ---
Date of Service July 23, 2019 Assessment & Plan (1) Olecranon bursitis of right elbow: Presented with swollen right elbow-->diagnosed with septic olecranon bursitis Erythema and swelling continue to improve on IV Dapto-now day #7 -Will convert to p.o. Keflex and doxycycline on discharge to finish out a 10-day course - Orthopedic consulted - nothing surgical at this time -holding statin while on Dapto-we will restart this on discharge -continue icing and avoidance of resting elbow on hard surfaces (2) Beta shayne toxicity: On 07/17, BP was as low as 70/60. She had received metoprolol XL, carvedilol, Entresto, and diltiazem the AM after admission due to confusion about what her actual home meds are - Given IV fluids, calcium, and was on glucagon gtt overnight x 1 night. - BPs now much improved. HR was never an issue due to presence of pacer -Glucagon was weaned off -We will restart Toprol-XL 12.5 mg daily in the morning -Discontinue permanently carvedilol and diltiazem -continue tele monitoring (3) Acute kidney injury: Roving Department End Finder up to 4.32 at peak from ATN after hypotensive episode with beta shayne toxicity as above Continues to be making urine, lytes stable, not volume overloaded Nephrology following UA with 3+ blood but was a cathed sample, no casts Renal US with MRD, no obstruction -ladies attendant continues to be improving today down to 3.21 UOP good -continue to follow BMP, UOP, daily weights, BPs (4) Dysfunctional uterine bleeding: Has had intermittent post-menopausal vag bleeding over the last year, much worse lately prior to admission. TVUS with thickened endometrium Biopsy of the endometrium was done on 07/16--> nondiagnostic, all blood. - [employer] feels endometrial cancer is likely. -now s/p D&C with Mirena IUD placement on 07/21-await biopsy results - Hemoglobin mildly low at 10.7 but stable from previous - Monitor CBC -ok to continue Eliquis (5) CHF (congestive heart failure), NYHA class III: Chronic systolic heart failure with EF 20-25% in 04/2019. Patient does not appear to be in acute exacerbation. Per prior HF notes from [facility], her baseline weight is ~100 kgs which is where she currently is now -Permanently discontinuing carvedilol, diltiazem, and Entresto -Restarting Toprol-XL at a lower dose tomorrow as above of 12.5 mg daily after being on hold for previous hypotension - Hold home atorvastatin while on daptomycin - Received 500 mL IVFs on 07/17 while hypotensive. CXR on 07/18 showed no congestion. -Will not restart ACEi/ARB or Entresto at this time due to acute kidney injury -Continue to follow-up with CHF clinic after discharge -Following daily weights, I's and O's (6) AF (paroxysmal atrial fibrillation): EKG on admission shows a dual-paced rhythm. Heart rate starting to increase today in the 90s - Continue apixaban 2.5 mg p.o. twice daily. - restart metoprolol as above (7) Biventricular ICD (implantable cardioverter-defibrillator) in place: EKG shows paced rhythm. - No issues at this time continue monitoring (8) CVA (cerebral vascular accident): No concern for stroke at this time. - Continue monitoring -continue Eliquis (9) Cognitive changes: Patient has mild to moderate cognitive changes per admitting provider's note. Granddaughter reports some falls at home. - Continue daily orienting patient in time space and surrounding. - PT/OT (10) Coronary artery disease: No chest pain. EKGs non-ischemic. With h/o single vessel CABG at time of valve replacement - Continue apixaban, statin on hold, metoprolol restarting as above (11) Depression: Patient appears to be stable. She states that her mother is on hospice but she is coping well with her issues. - Continue escitalopram 10 mg p.o. daily--> as per Pharmacist review of home meds with all bottles brought in, this was one that was recently restarted after last admission about 1 month ago -continue (12) Hypertension: - Hold home medicine as discussed above for hypotension which is now resolved -Restarting Toprol-XL (13) Obstructive sleep apnea: Patient is on nasal cannula 2 L. - Continue monitoring and continue supplemental oxygen. (14) Diabetes mellitus type 2 in obese: A1c was 7.2% in 05/2019. 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 Otherwise tolerates meals. Now known to be secondary to moderate esophageal dysmotility on barium swallow -started Pepcid 20mg daily (renally dosed) Seen by speech therapy-recommends slippery diet, sitting upright with meals, alternating liquids and solids-discussed with patient/family and she will be given speech therapy discharge instructions (18) Esophageal dysmotility: As above (19) Hyperkalemia: Potassium mildly elevated today at 5.2 in the setting of renal failure -Change to low potassium diet -Follow BMP in the morning (20) DVT prophylaxis: On apixaban for afib Dispo-continued stay on DataProm-LiveBid for continued monitoring of renal function, overall much improved Plan is for home with Home Health likely early next week Admission and Anticipated Discharge Date Admission Date: July 18, 2019 Anticipated date of discharge: 07/25/19 Subjective Feeling well today. Seen by speech therapy and aspiration issues addressed. She has moderate esophageal dysmotility on her barium swallow. She had some chest and throat pain early this morning which was relieved with drinking water after her barium swallow and is now resolved. She has occasional shortness of breath but feels stronger. She is walking to the bathroom and back with assistance of a walker. Her elbow is improving except for the fact that she banged it on the doorway of the bathroom today which exacerbated the pain. She is making plenty of urine. Still having some vag bleeding Denies abdominal pains. Telemetry with paced rhythm and sinus rhythm with rates in the 60s and 70s Review of Systems Review of Systems: All systems reviewed & are unremarkable except as noted in HPI & below Physical Exam Constitutional: WD/WN, vitals as above + obese Eyes: + anicteric sclerae Neck: trachea midline, no thyromegaly Respiratory: normal respiratory effort, lungs clear to auscultation Cardiovascular: RRR, no murmur, no edema Rate/Rhythm: regular rate and regular rhythm Heart Sounds: + murmur Extremities: + edema (trace pitting edema legs bilat) Chest (Breasts): Chest: normal inspection of chest Gastrointestinal (Abdomen): normal bowel sounds, soft, nontender, no hepatosplenomegaly Musculoskeletal: Extremities: + extremities abnormal to inspection (rt elbow with mildly enlarged olecrenon bursa, mild overlying erythema,+TTP much improved from previous), no cyanosis and no clubbing Neurologic: moves all extremities and awake; no focal motor deficits Psychiatric: A+Ox3, euthymic affect Lymphatic: no lymphedema Results & Data ([facility]) Vital Signs (Past 12 Hours) Vital Signs Temp Pulse Pulse Resp BP BP Pulse Ox 07/23/19 15:13 36.8 C 60 18 120/70 98 07/23/19 14:57 36.7 C 65 18 116/74 96 07/23/19 11:21 36.5 C 60 16 124/68 100 07/23/19 10:00 68 Laboratory Results 07/23/19 07/23/19 07/23/19 Range/Units 20:11 16:26 11:41 WBC (4.8-10.8) K/uL RBC (4.2-5.4) M/uL Hgb (12.0-16.0) g/dL Hct (37-47) % MCV (80-100) fL MCH (25-34) pg MCHC (32-36) g/dL RDW Std Deviation (36.4-46.3) fL RDW Coeff of Chriss (11.5-14.5) % Plt Count (130-400) K/uL MPV (7.4-10.4) fL Immature Gran % (Auto) % Neut % (Auto) % Lymph % (Auto) % [place] % (Auto) % Eos % (Auto) % Baso % (Auto) % Immature Gran # (Auto) (0.00-0.02) K/uL Neut # (Auto) (1.4-6.5) K/uL Lymph # (Auto) (1.2-3.4) K/uL [place] # (Auto) (0.11-0.59) K/uL Eos # (Auto) (0-0.5) K/uL Baso # (Auto) (0-0.2) K/uL Sodium (136-145) mmol/L Potassium (3.5-5.1) mmol/L Chloride (98-107) mmol/L Carbon Dioxide (21-32) mmol/L Anion Gap (3-11) BUN (7-18) mg/dl Creatinine (0.6-1.2) mg/dl Est Cr Clr Drug Dosing ml/min Est GFR ( Amer) Est GFR (Non-Af Amer) BUN/Creatinine Ratio (10-20) Glucose (70-99) mg/dl POC Glucose 94 143 H 103 H (70-99) mg/dl Calcium (8.5-10.1) mg/dl 07/23/19 07/23/19 07/23/19 Range/Units 07:40 07:17 07:17 WBC 5.44 (4.8-10.8) K/uL RBC 3.91 L (4.2-5.4) M/uL Hgb 10.7 L (12.0-16.0) g/dL Hct 34.4 L (37-47) % MCV 88.0 (80-100) fL MCH 27.4 (25-34) pg MCHC 31.1 L (32-36) g/dL RDW Std Deviation 47.8 H (36.4-46.3) fL RDW Coeff of Chriss 14.9 H (11.5-14.5) % Plt Count 221 (130-400) K/uL MPV 8.6 (7.4-10.4) fL Immature Gran % (Auto) 0.2 % Neut % (Auto) 65.2 % Lymph % (Auto) 20.6 % [place] % (Auto) 8.6 % Eos % (Auto) 4.8 % Baso % (Auto) 0.6 % Immature Gran # (Auto) 0.01 (0.00-0.02) K/uL Neut # (Auto) 3.55 (1.4-6.5) K/uL Lymph # (Auto) 1.12 L (1.2-3.4) K/uL [place] # (Auto) 0.47 (0.11-0.59) K/uL Eos # (Auto) 0.26 (0-0.5) K/uL Baso # (Auto) 0.03 (0-0.2) K/uL Sodium 141 (136-145) mmol/L Potassium 5.2 H D (3.5-5.1) mmol/L Chloride 107 (98-107) mmol/L Carbon Dioxide 31 (21-32) mmol/L Anion Gap 3.0 (3-11) BUN 50 H (7-18) mg/dl Creatinine 3.21 H D (0.6-1.2) mg/dl Est Cr Clr Drug Dosing 16.5 ml/min Est GFR ( Amer) 15.6 Est GFR (Non-Af Amer) 13.4 BUN/Creatinine Ratio 15.7 (10-20) Glucose 93 (70-99) mg/dl POC Glucose 120 H (70-99) mg/dl Calcium 9.4 (8.5-10.1) mg/dl PG Care Time/CCT Total # of Minutes Spent Total Time Spent with Patient: Total time spent is greater than 50% in coordination of care (as documented) at patient's floor/unit and/or counseling patient: Coding Level of Care Code 77783 Subseq Hosp Care Lvl 3 Diagnoses Olecranon bursitis of right elbow M70.21 Beta shayne toxicity Acute kidney injury N17.9 Dysfunctional uterine bleeding N93.8 CHF (congestive heart failure), NYHA class III I50.23 Congestive heart failure chronicity: acute on chronic Congestive heart failure type: systolic AF (paroxysmal atrial fibrillation) I48.0 Biventricular ICD (implantable cardioverter-defibrillator) in place Z95.810 CVA (cerebral vascular accident) I63.9 Cognitive changes R41.89 Coronary artery disease I25.10 Associated angina: without angina Coronary Disease-Associated Artery/Lesion type: [place] artery [place] vs. transplanted heart: [place] heart Depression F33.9 Active/Remission status: remission status unspecified Depression Type: major depressive disorder Major depression recurrence: recurrent Hypertension I10 Hypertension type: essential hypertension Obstructive sleep apnea G47.33 Diabetes mellitus type 2 in obese E11.69; E66.9 Asthma J45.909 Aortic valve disorder I35.9 Vomiting R11.10 Esophageal dysmotility K22.4 Hyperkalemia E87.5 DVT prophylaxis Z29.9 (1) CHF (congestive heart failure), NYHA class III Congestive heart failure chronicity: acute on chronic Congestive heart failure type: systolic Qualified Code(s): I50.23 - Acute on chronic systolic (congestive) heart failure (2) Coronary artery disease Associated angina: without angina Coronary Disease-Associated Artery/Lesion type: [place] artery [place] vs. transplanted heart: [place] heart Qualified Code(s): I25.10 - Atherosclerotic heart disease of [place] coronary artery without angina pectoris (3) Depression Active/Remission status: remission status unspecified Depression Type: major depressive disorder Major depression recurrence: recurrent Qualified Code(s): F33.9 - Major depressive disorder, recurrent, unspecified (4) Hypertension Hypertension type: essential hypertension Qualified Code(s): I10 - Essential (primary) hypertension
[2019-07-24 07:42] LABS: Hematocrit (blood only) 34.4 % (37-47); Hemoglobin 10.8 g/dL (12.0-16.0); Mean Corpuscular Hemoglobin 27.8 pg (25-34); Mean Corpuscular Hgb Conc 31.4 g/dL (32-36); Mean Corpuscular Volume 88.4 fL (80-100); Mean Platelet Volume 8.7 fL (7.4-10.4); Platelet Count 246 K/uL (130-400); RDW Coefficient of Variation 14.8 % (11.5-14.5); RDW Standard Deviation 47.8 fL (36.4-46.3); Red Blood Count 3.89 M/uL (4.2-5.4); White Blood Count 5.18 K/uL (4.8-10.8)
[2019-07-24] MEDS: INSULIN ASPART 100 UNITS/ML 3 ML PEN SC SCH ×4 (07:58→22:17)
[2019-07-24] MEDS: FLUTICASONE/VILANTEROL 100/25MCG 14 PUFFS/INHALER INH SCH (07:59)
[2019-07-24] MEDS: ASCORBIC ACID 500 MG TAB PO SCH (07:59)
[2019-07-24] MEDS: ESCITALOPRAM OXALATE 10 MG TAB PO SCH (07:59)
[2019-07-24] MEDS: FAMOTIDINE 20 MG TAB PO SCH (07:59)
[2019-07-24] MEDS: CHOLECALCIFEROL 1,000 UNITS 25 MCG TAB PO SCH (07:59)
[2019-07-24] MEDS: APIXABAN 2.5 MG TAB PO SCH ×2 (07:59→21:44)
[2019-07-24 08:31] LABS: BUN Creatinine Ratio 16.3 (10-20); Calcium 9.4 mg/dl (8.5-10.1); Creatinine Clr Calc Pharmacy 18.8 ml/min; Est GFR (African American) 18.2; Est GFR (Non-African American) 15.7; Potassium 4.8 mmol/L (3.5-5.1)
[2019-07-24] MEDS ORDERED: METOPROLOL SUCC 25MG EXT REL TAB PO SCH (09:00)
--- NOTE | 2019-07-24 13:05 | Nephrology Progress Note ---
Date of Service July 24, 2019 Assessment & Plan (1) Acute kidney injury: -- SUSSY/CKD due to hemodynamic ATN. Time course of increase in creatinine correlates w/ recent hypotensive episode. Blood pressure has stabilized. Cr has improved to 3.2 Patient is nonoliguric. Volume status and electrolyte balance are acceptable. No acute indication for HD. -- Potassium has corrected. Continue low potassium restriction w/ diet order -- Urinalysis reviewed. No ATN casts. Hematuria related to recent D&C -- Renal US 07/20: R 10.9, L 9.9. No kidney stones or hydronephrosis -- Kidney function is nearing baseline. No further Nephrology evaluation indicated. Will sign off. Please call if further assistance is needed (2) Chronic kidney disease, stage 4 (severe): -- Baseline Cr 2.2 (3) Vaginal bleeding: -- D&C completed. Await histology results (4) Olecranon bursitis of right elbow: -- Improving w/ Daptomycin therapy (5) Cardiomyopathy: -- h/o idiopathic dilated CMP and aortic aneurysm s/p aortic graft w/ AVR and CABG x1 Subjective Ms. Quick was seen & examined in her hospital room this morning. She denies uremic symptoms. Her olecranon bursitis is subjectively improved Review of Systems Constitutional: + weakness; no fever Eyes: no worsening vision and no problem reported Ear, Nose, Mouth, Throat: no problem reported Respiratory: no cough and no dyspnea Cardiovascular: no chest pain, no palpitations and no edema Gastrointestinal: no abdominal pain, no nausea, no vomiting and no diarrhea/loose stools Genitourinary: no dysuria and no hematuria Musculoskeletal: no back pain Integumentary: no rash Neurologic: no falls, no dizziness and no confusion Physical Exam Constitutional: + obese; not in distress Eyes: PERRL, conjunctivae normal, anicteric sclerae ENMT: external ear and nose normal, oropharynx normal Neck: trachea midline, no thyromegaly Respiratory: normal respiratory effort, lungs clear to auscultation Cardiovascular: RRR, no murmur, no edema Gastrointestinal (Abdomen): normal bowel sounds, soft, nontender, no hepatosplenomegaly Musculoskeletal: Extremities: no cyanosis Skin: no erythema (R elbow) Neurologic: awake; not confused Results & Data Vital Signs (Past 12 Hours) Vital Signs Temp Pulse Resp BP BP Pulse Ox 07/24/19 11:00 36.4 C L 63 20 121/62 97 07/24/19 07:00 36.8 C 60 18 134/86 97 07/24/19 04:02 36.7 C 63 18 127/76 97 Laboratory Results Laboratory Tests 07/24/19 07/24/19 07:10 07:10 WBC 5.18 Hgb 10.8 L Hct 34.4 L Plt Count 246 Sodium 140 Potassium 4.8 Chloride 107 Carbon Dioxide 29 BUN 46 H Creatinine 2.82 H D Glucose 105 H PG Care Time/CCT Total # of Minutes Spent Total Time Spent with Patient: Total time spent is greater than 50% in coordination of care (as documented) at patient's floor/unit and/or counseling patient: Coding Level of Care Code 12031 Subseq Hosp Care Lvl 2 Diagnoses Acute kidney injury N17.9 Chronic kidney disease, stage 4 (severe) N18.4 Vaginal bleeding N93.9 Olecranon bursitis of right elbow M70.21 Cardiomyopathy I42.9
--- NOTE | 2019-07-24 15:25 | Hospitalist Progress Note ---
Date of Service July 24, 2019 Assessment & Plan (1) Olecranon bursitis of right elbow: Presented with swollen right elbow-->diagnosed with septic olecranon bursitis Erythema and swelling continue to improve on IV Dapto-now day #8 -Will continue a 10-day course of Dapto--> Dapto is q48hr so if she gets a dose tomorrow, then will be last dose - Orthopedic consulted - nothing surgical at this time -holding statin while on Dapto-we will restart this on discharge -continue icing and avoidance of resting elbow on hard surfaces (2) Beta shayne toxicity: On 07/17, BP was as low as 70/60. She had received metoprolol XL, carvedilol, Entresto, and diltiazem the AM after admission due to confusion about what her actual home meds are - Given IV fluids, calcium, and was on glucagon gtt overnight x 1 night. - BPs now much improved. HR was never an issue due to presence of pacer -Glucagon was weaned off - restarted Toprol-XL 12.5 mg daily on 07/23 and will increase to 25mg tomorrow as is tolerating well and had NSVT 7 beats -Discontinue permanently carvedilol and diltiazem -continue tele monitoring (3) Acute kidney injury: [employer]ilities [employer] up to 4.32 at peak from [facility] after hypotensive episode with beta shayne toxicity as above Continues to be making urine, lytes stable, not volume overloaded Nephrology following UA with 3+ blood but was a cathed sample, no casts Renal US with MRD, no obstruction -budget manager much improved down to 2.82 today almost back to her baseline UOP remains good -continue to follow BMP, UOP, daily weights, BPs Nephrology signing off on 07/23 (4) Dysfunctional uterine bleeding: Has had intermittent post-menopausal vag bleeding over the last year, much worse lately prior to admission. TVUS with thickened endometrium Biopsy of the endometrium was done on 07/16--> nondiagnostic, all blood. - [employer] LANG[employer]AGE IN[employer] feels endometrial cancer is likely. -now s/p D&C with Mirena IUD placement on 07/21-await biopsy results - Hemoglobin mildly low at 10.8 but stable from previous for many days, continues to have very light spotting -expect Mirena IUD to assist with bleeding over th enxt few months - Monitor CBC periodically now -ok to continue Eliquis (5) CHF (congestive heart failure), NYHA class III: Chronic systolic heart failure with EF 20-25% in 04/2019. Patient does not appear to be in acute exacerbation. Per prior HF notes from [facility], her baseline weight is ~100 kgs which is where she currently is now Nonischemic CM -Permanently discontinuing carvedilol, diltiazem, and Entresto -Restarted Toprol-XL 12.5 mg daily after being on hold for previous hypotension--> increase to 25mg daily tomorrow as is tolerating well today - Received 500 mL IVFs on 07/17 while hypotensive. CXR on 07/18 showed no congestion. -Will not restart ACEi/ARB or Entresto at this time due to acute kidney injury -Continue to follow-up with CHF clinic after discharge -Following daily weights, I's and O's (6) AF (paroxysmal atrial fibrillation): EKG on admission shows a dual-paced rhythm. Heart rate started to increase into the 90s after many days of withholding beta blcokers - Continue apixaban 2.5 mg p.o. twice daily. - titrating up on metoprolol as above (7) Biventricular ICD (implantable cardioverter-defibrillator) in place: EKG shows paced rhythm. - No issues at this time continue monitoring (8) CVA (cerebral vascular accident): No concern for stroke at this time. - Continue monitoring -continue Eliquis (9) Cognitive changes: Patient has mild to moderate cognitive changes per admitting provider's note. Granddaughter reports some falls at home. - Continue daily orienting patient in time space and surrounding. - PT/OT (10) Coronary artery disease: No chest pain. EKGs non-ischemic. With h/o single vessel CABG at time of valve replacement - Continue apixaban, statin on hold, metoprolol restarted as above (11) Depression: Patient appears to be stable. She states that her mother is on hospice but she is coping well with her issues. - Continue escitalopram 10 mg p.o. daily--> as per Pharmacist review of home meds with all bottles brought in, this was one that was recently restarted after last admission about 1 month ago -continue (12) Hypertension: - Hold home medicine as discussed above for hypotension which is now resolved BPs acceptable today -Restarted Toprol-XL (13) Obstructive sleep apnea: Patient is on nasal cannula 2 L. - Continue monitoring and continue supplemental oxygen. (14) Diabetes mellitus type 2 in obese: A1c was 7.2% in 05/2019. 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 Otherwise tolerates meals. Now known to be secondary to moderate esophageal dysmotility on barium swallow -started Pepcid 20mg daily (renally dosed) Seen by speech therapy-recommends slippery diet, sitting upright with meals, alternating liquids and solids-discussed with patient/family and she will be given speech therapy discharge instructions (18) Esophageal dysmotility: As above (19) Hyperkalemia: Potassium mildly elevated at 5.2 in the setting of renal failure--> today is improved -continue low potassium diet -Follow BMP in the morning (20) DVT prophylaxis: On apixaban for afib Dispo-continued stay on med-tele for continued monitoring of renal function, overall much improved Plan is for home with Home Health tomorrow likely Admission and Anticipated Discharge Date Admission Date: July 18, 2019 Anticipated date of discharge: 07/25/19 Subjective Feeling great. Has very minimal right elbow pain. Denies CP or SOB, no nausea or abd pain. I smaking urine. Feels stronger and is ambulating to bathroom and OOB to chair for all meals Tele with paced rhythm, rates in the 60s, 7 beat run VT Review of Systems Review of Systems: All systems reviewed & are unremarkable except as noted in HPI & below Physical Exam Constitutional: WD/WN, vitals as above + obese Eyes: + anicteric sclerae Neck: trachea midline, no thyromegaly Respiratory: normal respiratory effort, lungs clear to auscultation Cardiovascular: RRR, no murmur, no edema Rate/Rhythm: regular rate and regular rhythm Heart Sounds: + murmur Extremities: + edema (trace pitting edema legs bilat) Chest (Breasts): Chest: normal inspection of chest Gastrointestinal (Abdomen): normal bowel sounds, soft, nontender, no hepatosplenomegaly Musculoskeletal: Extremities: + extremities abnormal to inspection (rt elbow with mildly enlarged olecrenon bursa,erythema resolved), no cyanosis and no clubbing Neurologic: moves all extremities and awake; no focal motor deficits Psychiatric: A+Ox3, euthymic affect Lymphatic: no lymphedema Results & Data ([facility]) Vital Signs (Past 12 Hours) Vital Signs Temp Pulse Resp BP BP Pulse Ox 07/24/19 11:00 36.4 C L 63 20 121/62 97 07/24/19 07:00 36.8 C 60 18 134/86 97 07/24/19 04:02 36.7 C 63 18 127/76 97 Laboratory Results 07/24/19 07/24/19 07/24/19 Range/Units 11:47 07:46 07:10 WBC 5.18 (4.8-10.8) K/uL RBC 3.89 L (4.2-5.4) M/uL Hgb 10.8 L (12.0-16.0) g/dL Hct 34.4 L (37-47) % MCV 88.4 (80-100) fL MCH 27.8 (25-34) pg MCHC 31.4 L (32-36) g/dL RDW Std Deviation 47.8 H (36.4-46.3) fL RDW Coeff of Chriss 14.8 H (11.5-14.5) % Plt Count 246 (130-400) K/uL MPV 8.7 (7.4-10.4) fL Sodium (136-145) mmol/L Potassium (3.5-5.1) mmol/L Chloride (98-107) mmol/L Carbon Dioxide (21-32) mmol/L Anion Gap (3-11) BUN (7-18) mg/dl Creatinine (0.6-1.2) mg/dl Est Cr Clr Drug Dosing ml/min Est GFR ( Amer) Est GFR (Non-Af Amer) BUN/Creatinine Ratio (10-20) Glucose (70-99) mg/dl POC Glucose 126 H 102 H (70-99) mg/dl Calcium (8.5-10.1) mg/dl 07/24/19 07/23/19 07/23/19 Range/Units 07:10 20:11 16:26 WBC (4.8-10.8) K/uL RBC (4.2-5.4) M/uL Hgb (12.0-16.0) g/dL Hct (37-47) % MCV (80-100) fL MCH (25-34) pg MCHC (32-36) g/dL RDW Std Deviation (36.4-46.3) fL RDW Coeff of Chriss (11.5-14.5) % Plt Count (130-400) K/uL MPV (7.4-10.4) fL Sodium 140 (136-145) mmol/L Potassium 4.8 (3.5-5.1) mmol/L Chloride 107 (98-107) mmol/L Carbon Dioxide 29 (21-32) mmol/L Anion Gap 5.0 (3-11) BUN 46 H (7-18) mg/dl Creatinine 2.82 H D (0.6-1.2) mg/dl Est Cr Clr Drug Dosing 18.8 ml/min Est GFR ( Amer) 18.2 Est GFR (Non-Af Amer) 15.7 BUN/Creatinine Ratio 16.3 (10-20) Glucose 105 H (70-99) mg/dl POC Glucose 94 143 H (70-99) mg/dl Calcium 9.4 (8.5-10.1) mg/dl PG Care Time/CCT Total # of Minutes Spent Total Time Spent with Patient: Total time spent is greater than 50% in co ordination of care (as documented) at patient's floor/unit and/or counseling patient: Coding Level of Care Code 19586 Subseq Hosp Care Lvl 2 Diagnoses Olecranon bursitis of right elbow M70.21 Beta shayne toxicity Acute kidney injury N17.9 Dysfunctional uterine bleeding N93.8 CHF (congestive heart failure), NYHA class III I50.23 Congestive heart failure type: systolic Congestive heart failure chronicity: acute on chronic AF (paroxysmal atrial fibrillation) I48.0 Biventricular ICD (implantable cardioverter-defibrillator) in place Z95.810 CVA (cerebral vascular accident) I63.9 Cognitive changes R41.89 Coronary artery disease I25.10 Coronary Disease-Associated Artery/Lesion type: [place] artery [place] vs. transplanted heart: gray[place] heart Associated angina: without angina Depression F33.9 Depression Type: major depressive disorder Major depression recurrence: recurrent Active/Remission status: remission status unspecified Hypertension I10 Hypertension type: essential hypertension Obstructive sleep apnea G47.33 Diabetes mellitus type 2 in obese E11.69; E66.9 Asthma J45.909 Aortic valve disorder I35.9 Vomiting R11.10 Esophageal dysmotility K22.4 Hyperkalemia E87.5 DVT prophylaxis Z29.9 (1) CHF (congestive heart failure), NYHA class III Congestive heart failure type: systolic Congestive heart failure chronicity: acute on chronic Qualified Code(s): I50.23 - Acute on chronic systolic (congestive) heart failure (2) Coronary artery disease Coronary Disease-Associated Artery/Lesion type: [place] artery [place] vs. transplanted heart: [place] heart Associated angina: without angina Qualified Code(s): I25.10 - Atherosclerotic heart disease of gray[place] coronary artery without angina pectoris (3) Depression Depression Type: major depressive disorder Major depression recurrence: recurrent Active/Remission status: remission status unspecified Qualified Code(s): F33.9 - Major depressive disorder, recurrent, unspecified (4) Hypertension Hypertension type: essential hypertension Qualified Code(s): I10 - Essential (primary) hypertension
[2019-07-25 07:07] LABS: BUN Creatinine Ratio 17.3 (10-20); Calcium 9.4 mg/dl (8.5-10.1); Creatinine Clr Calc Pharmacy 21.4 ml/min; Est GFR (African American) 21.3; Est GFR (Non-African American) 18.4; Potassium 4.8 mmol/L (3.5-5.1)
[2019-07-25] MEDS: ESCITALOPRAM OXALATE 10 MG TAB PO SCH (07:47)
[2019-07-25] MEDS: APIXABAN 2.5 MG TAB PO SCH (07:47)
[2019-07-25] MEDS: ASCORBIC ACID 500 MG TAB PO SCH (07:47)
[2019-07-25] MEDS: CHOLECALCIFEROL 1,000 UNITS 25 MCG TAB PO SCH (07:47)
[2019-07-25] MEDS: FLUTICASONE/VILANTEROL 100/25MCG 14 PUFFS/INHALER INH SCH (07:47)
[2019-07-25] MEDS: FAMOTIDINE 20 MG TAB PO SCH (07:47)
[2019-07-25] MEDS: INSULIN ASPART 100 UNITS/ML 3 ML PEN SC SCH ×2 (08:09→12:30)
[2019-07-25] MEDS ORDERED: METOPROLOL SUCC 25MG EXT REL TAB PO SCH (09:00)
--- NOTE | 2019-07-25 12:48 | Discharge Summary ---
Date of Service July 25, 2019 Admission HPI Per Admitting Provider The patient is a 73 years old female with a past medical history of congestive heart failure, diabetes mellitus type 2, severe obesity, DUB, paroxysmal atrial fibrillation apixaban, biventricular ICD defibrillator, coronary artery disease, cardiomyopathy, depression, who presents to the emergency room with intermittent vaginal bleeding started last night and swelling of the right elbow for several weeks. In regard of intermittent vaginal bleeding patient is forced that that has been ongoing for some time and that she had kidney stones and stents placed in the past. In regard of her elbow patient states that she was trying to treated as an outpatient and her PCP prescribed Augmentin and Bactrim DS for 10 days but this was not improving. Patient still did not complete her therapy and there are several tablets left. Patient states that she uses 2 L of oxygen at home pretty much 02/12. Patient denies fever, chills, chest pain, shortness of breath, frequency, urgency. Labs are reviewed: WBCs 10.57, hemoglobin 12.3, hematocrit 38.3, platelets 217, PT 11.9, INR 1.1, APTT 27.9, sodium 139, potassium 3.8, chloride 104, carbon dioxide 29, anion gap 6, BUN 28, creatinine 2.31 at her baseline, patient creatinine is ranging from 1.71 to 1.36, glucose 105, calcium 9.7, total bilirubin 0.5, AST 20, ALT 19, alkaline phosphatase 116, BNP pending, total protein 6.9, albumin 3.2. Right elbow x-rays:Possible f racture of the enthesophyte at the insertion of the triceps tendon.Focal soft tissue swelling at the dorsal olecranon suggests olecranon bursitis. This may be traumatic, infectious, or due to an inflammatory etiologies such as gout or CPPD.Nonspecific diffuse subcutaneous edema and skin thickening. Cellulitis is not excluded.No radiographic evidence of osteomyelitis. Ultrasound of the uterus shows significant hydro-density of the uterus. Limited evaluation on endovaginal imaging given patient doing discomfort. The examination is inconclusive and could suggest both benign or malignant etiology to this appearance. Differential diagnostic consideration affecting the myometrium, such as diffuse adeno myosis, or affecting the endometrium, such as endometrial hyperplasia or carcinoma could be considered. Further evaluation with contrast enhanced pelvic MRI could be considered along with gynecological consultation. The decision was made to observe at [facility]urg telemetry patient for severe olecranon bursitis, dysfunctional uterine bleeding, and for further evaluation and exclusion of endometrial cancer. Principal Diagnosis Right elbow olecranon bursitis, SUSSY, Post-menopausal vaginal bleeding Discharge Exam Constitutional WD/WN, vitals as above + obese Eyes + anicteric sclerae Neck trachea midline, no thyromegaly Respiratory normal respiratory effort, lungs clear to auscultation Cardiovascular Rate/Rhythm: regular rate and regular rhythm Heart Sounds: + murmur Extremities: + edema (trace pitting edema legs bilat) Chest (Breasts) Chest: normal inspection of chest Gastrointestinal (Abdomen) normal bowel sounds, soft, nontender, no hepatosplenomegaly Musculoskeletal Extremities: + extremities abnormal to inspection (rt elbow with mildly enlarged olecrenon bursa,erythema resolved), no cyanosis and no clubbing Neurologic moves all extremities and awake; no focal motor deficits Psychiatric A+Ox3, euthymic affect Lymphatic no lymphedema Discharge Data Allergies Allergy/AdvReac Type Severity Reaction Status Date / Time aspirin Allergy Intermediate HIVES Verified 07/17/19 10:36 Iodinated Contrast Media Allergy Intermediate HIVES - Verified 07/17/19 10:36 MRI DYE levofloxacin Allergy Intermediate HIVES, Verified 07/17/19 10:36 VEIN IRRITATION W/IV LEVAQUIN erythromycin base Allergy Unknown UNKNOWN Verified 07/17/19 10:36 Consultations 07/17/19 13:40 ED Decision to Admit Stat 07/17/19 14:50 Consult Orthopedic Surgery Routine 07/17/19 15:37 Consult Gynecology Routine 07/18/19 08:56 Consult Gynecology Routine 07/20/19 12:31 Consult Anesthesiology Routine Procedures Performed Operation Date: 07/22/19 07:15 Actual Procedures p Dilation and Curettage(Not Applicable) - Todd Portillo Jr, MD, FACOG s Diagnotisic Hysteroscopy, Mirena Intrauterine Device Insertion(Not Applicable) - Todd Portillo Jr, MD, FACOG Ordered Studies 07/17/19 09:56 US transvaginal Stat 07/17/19 09:57 US pelvic complete Stat 07/21/19 13:30 US renal/blad retro comp Routine 07/23/19 08:00 FL barium swallow Routine CXR Right elbow xray Hospital Course (1) Olecranon bursitis of right elbow: Presented with swollen right elbow--> diagnosed with septic olecranon bursitis Erythema and swelling continue to improve on IV Dapto-now day #9 -Will continue a 10-day course of Dapto--> Dapto is q48hr and received final dose on 07/24 which will last through 07/26 - Orthopedic consulted - nothing surgical at this time -held statin while on Dapto-we will restart this on discharge -continue icing and avoidance of resting elbow on hard surfaces -f/u with Ortho as outpt in 2 weeks (2) Beta shayne toxicity: On 07/17, BP was as low as 70/60. She had received metoprolol XL, carvedilol, Entresto, and diltiazem the AM after admission due to confusion about what her actual home meds are - Given IV fluids, calcium, and was on glucagon gtt overnight x 1 night. - BPs now much improved. 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 [facility] after hypotensive episode with beta shayne toxicity as above Continues to be making urine, lytes stable, not volume overloaded Nephrology following UA with 3+ blood but was a cathed sample, no casts Renal US with MRD, no obstruction -aerobics teacher much improved down to 2.48 on the day of discharge which is almost back to her baseline UOP remains good -continue to follow BMP as an outpt this Fri and f/u with Nephrology in 1-2 weeks -continue to HOLD home lasix on discharge and should NOT be started back on Entresto (4) Dysfunctional uterine bleeding: Has had intermittent post-menopausal vag bleeding over the last year, much worse lately prior to admission. TVUS with thickened endometrium Biopsy of the endometrium was done on 07/16--> nondiagnostic, all blood. - OIL HEAT TECHNICIAN feels endometrial cancer is likely. -now s/p D&C with Mirena IUD placement on 07/21-await biopsy results - Hemoglobin mildly low at 10.8 but stable from previous for many days, continues to have very light spotting -expect Mirena IUD to assist with bleeding over xt few months - Monitor CBC as an outpatient this Fri -ok to continue Eliquis -f/u with FOOD SERVICE ORDER CLERK after discharge to review path results -would expect intermittent continued spotting for a while even with Mirena IUD in place (5) CHF (congestive heart failure), NYHA class III: Chronic systolic heart failure with EF 20-25% in 04/2019. Patient does not appear to be in acute exacerbation. Per prior HF notes from [facility], her baseline weight is ~100 kgs which is where she currently is now Nonischemic CM -Permanently discontinuing carvedilol, diltiazem, and Entresto -Restarted Toprol-XL 25 mg daily after being on hold for previous hypotension - Received 500 mL IVFs on 07/17 while hypotensive. CXR on 07/18 showed no congestion. -Will not restart ACEi/ARB or Entresto at this time due to acute kidney injury -Continue to follow-up with CHF clinic after discharge -Following daily weights at home (6) AF (paroxysmal atrial fibrillation): EKG on admission shows a dual-paced rhythm. Heart rate started to increase into the 90s after many days of withholding beta blcokers - Continue apixaban 2.5 mg p.o. twice daily. -restarted metoprolol as above (7) Biventricular ICD (implantable cardioverter-defibrillator) in place: EKG shows paced rhythm. - No issues at this time continue monitoring (8) CVA (cerebral vascular accident): No concern for stroke at this time. - Continue monitoring -continue Eliquis (9) Cognitive changes: Patient has mild to moderate cognitive changes per admitting provider's note. Granddaughter reports some falls at home. - Continue daily orienting patient in time space and surrounding. - PT/OT (10) Coronary artery disease: No chest pain. EKGs non-ischemic. With h/o single vessel CABG at time of valve replacement - Continue apixaban, statin, metoprolol restarted as above (11) Depression: Patient appears to be stable. She states that her mother is on hospice but she is coping well with her issues. - Continue escitalopram 10 mg p.o. daily--> as per Pharmacist review of home meds with all bottles brought in, this was one that was recently restarted after last admission about 1 month ago -continue (12) Hypertension: - Hold home medicine as discussed above for hypotension which is now resolved BPs acceptable today -Restarted Toprol-XL (13) Obstructive sleep apnea: Patient is on nasal cannula 2 L chronically. - Continue monitoring and continue supplemental oxygen. (14) Diabetes mellitus type 2 in obese: A1c was 7.2% in 05/2019. 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 Otherwise tolerates meals. Now known to be secondary to moderate esophageal dysmotility on barium swallow -started Pepcid 20mg daily (renally dosed) Seen by speech therapy-recommends slippery diet, sitting upright with meals, alternating liquids and solids-discussed with patient/family and she will be given speech therapy discharge instructions She has not had any further vomiting daily since instituting these measures (18) Esophageal dysmotility: As above (19) Hyperkalemia: Potassium mildly elevated at 5.2 in the setting of renal failure--> today is improved -BMP in 3 days as outpt (20) DVT prophylaxis: On apixaban for afib Dispo-stable for dc to home today with home health Total Time Total Time Spent Total Time Spent (In Minutes): 35 min Total Time Includes: Examination of the Patient, Discharge Planning, Medication Reconciliation and Communication With Other Providers (Nephrology) Discharge Plan Discharge Items Patient Disposition: Home - Home Health Services Reason For Visit: RIGHT ELBOW CELLULITIS, DUB Discharge Diagnosis: Right elbow olecranon bursitis, Acute kidney injury, Post-menopausal vaginal bleeding Condition on Discharge: Fair Activity: Resume your previous activity Activity Comment: Do not rest your right elbow on hard surfaces Bathing: No limitations Non-emergency contact: Primary Care Provider Call non-emergency contact if: you have any medication questions, your symptoms worsen, your pain is not controlled, your pain is worsening, your pain is unusual for you, your pain is concerning for you and you have a fever Follow-up/Referrals: Aimee Crook CRNP [Primary Care Provider] - 07/27/19 10:30 am Jose Gutiérrez MD [Physician] - (Please follow up within 2 weeks) Todd Portillo Jr, MD, FACOG [Physician] - (Please follow up within 1 week after discharge for your vaginal bleeding and follow up on biopsy results.) Rafal Gomez DO [Surgeon] - (Follow up with Orthopedic Surgeon in 2 weeks.) Diet: Carb Consistent or DM2 and Low Sodium (2gm) Ambulatory Orders: Basic Metabolic Panel (Routine) Timeframe: 3 Days Location: Determined by Patient Ordered By: Nini Hebert Complete Blood Count with Diff (Routine) Timeframe: 3 Days Location: Determined by Patient Ordered By: Nini Hebert Addtl Attending Provider Instructions: You completed all the IV antibiotics for your elbow infection and do not need to take any more antibiotics at home. Follow up with the Orthopedic doctor in 1-2 weeks. Your kidneys are improving. Please have blood work checked on Friday of this week and the results will be sent to Dr. Gutiérrez for review and follow up with him in his office in 2 weeks. Please carefully follow the new medication list given to you at discharge. There have been many changes to your medications. Please follow the Speech Therapist's recommendations for eating meals as these will help keep you from vomiting. Follow up with the Exhaust And Muffler Fitter within 1 week. The results of your biopsy should be back sometime this week and the FOOD SERVICE ORDER CLERK can review this result with you. Follow up with your PCP as scheduled for you. Pending Studies at Discharge: No Stand-Alone Forms: My [employer] Medications and DC Order Prescriptions: New metoprolol succinate 25 mg Tablet Extended Release 24 Hr 25 mg PO QAM Qty: 30 RF: 0 escitalopram oxalate 10 mg Tablet 10 mg PO DAILY Qty: 30 RF: 0 famotidine 20 mg Tablet 20 mg PO QAM Qty: 30 RF: 0 Breo Ellipta 100-25 mcg/dose Blister With Device 1 ea inhalation DAILY Qty: 60 RF: 0 atorvastatin 40 mg tablet 40 mg PO DAILY Qty: 30 RF: 0 Continued (DME) Accu-Chek Imani Plus test strp Strip See Rx Instructions .ROUTE .MEDSUPPLY Qty: 100 RF: 3 (DME) blood-glucose meter [Accu-Chek [place]mani Plus Meter] Misc See Rx Instructions .ROUTE .MEDSUPPLY Qty: 1 RF: 0 (DME) lancets [Accu-Chek Softclix Lancets] Misc See Rx Instructions .ROUTE .MEDSUPPLY Qty: 100 RF: 3 ascorbic acid (vitamin C) 500 mg tablet 500 mg PO DAILY RF: 0 Eliquis 2.5 mg tablet 2.5 mg PO BID Qty: 60 RF: 5 albuterol sulfate [Ventolin HFA] 90 mcg/actuation HFA aerosol inhaler 2 puff INHALATION Q4H PRN (Reason: shortness of breath or wheezing) Qty: 8 RF: 0 albuterol sulfate 2.5 mg /3 mL (0.083 %) solution for nebulization 2.5 mg INHALATION Q4H PRN (Reason: shortness of breath or wheezing) Qty: 75 RF: 4 ketoconazole 2 % cream 1 applic TOPICAL BID PRN (Reason: rash) Qty: 30 RF: 3 cholecalciferol (vitamin D3) [Vitamin D3] 25 mcg (1,000 unit) capsule 25 mcg PO DAILY RF: 0 Changed Lantus Solostar U-100 Insulin 100 unit/mL (3 mL) insulin pen 5 units SUBCUT HS Qty: 15 RF: 0 Discontinued furosemide 40 mg tablet 40 mg PO QAM Qty: 90 RF: 2 ondansetron HCl [Zofran] 4 mg tablet 4 mg PO Q8H PRN (Reason: nausea and vomiting) Qty: 20 RF: 0 metoprolol succinate 50 mg tablet extended release 24 hr 50 mg PO DAILY Qty: 30 RF: 5 escitalopram oxalate 20 mg Tablet 20 mg PO DAILY RF: 0 Discharge Orders: Discharge Order (Routine); Ordered 07/25/19 Ordered By: Nini Hebert Admission Data Admit Date/Time: 07/18/19 18:56 Attending Provider: Nini Hebert Admit Provider: Anais Foley Primary Care Provider: Aimee Crook Other Providers: Robinson Jauregui ; [facility] ; Anais Foley ; Rafal Gomez ; Brina Alcala ; Keenan Ford Coding Level of Care Code D/C Day Management >30 mins Diagnoses Olecranon bursitis of right elbow M70.21 Beta shayne toxicity Acute kidney injury N17.9 Dysfunctional uterine bleeding N93.8 CHF (congestive heart failure), NYHA class III I50.23 Congestive heart failure chronicity: acute on chronic Congestive heart failure type: systolic AF (paroxysmal atrial fibrillation) I48.0 Biventricular ICD (implantable cardioverter-defibrillator) in place Z95.810 CVA (cerebral vascular accident) I63.9 Cognitive changes R41.89 Coronary artery disease I25.10 Associated angina: without angina Coronary Disease-Associated Artery/Lesion type: [place] artery [place] vs. transplanted heart: [place] heart Depression F33.9 Active/Remission status: remission status unspecified Depression Type: major depressive disorder Major depression recurrence: recurrent Hypertension I10 Hypertension type: essential hypertension Obstructive sleep apnea G47.33 Diabetes mellitus type 2 in obese E11.69; E66.9 Asthma J45.909 Aortic valve disorder I35.9 Vomiting R11.10 Esophageal dysmotility K22.4 Hyperkalemia E87.5 DVT prophylaxis Z29.9
[2019-07-25] MEDS: DAPTOmycin 400 MG in SYRINGE 0 ML IV SCH (13:30)
== END 2019-07-25 14:25 | disposition home health service (06) | DRG 744 ==
LOC: 2N 09:09 → ED 09:09 → SUATTDRO 14:20 → 2N 15:16 → SUATTDRO 07-18 18:56

== ENCOUNTER 2020-08-13 15:54 | Observation (INO) ==
[2020-08-13] MEDS ORDERED: ONDANSETRON INJ 2 MG/ML 2 ML VIAL IV STA (16:08)
--- NOTE | 2020-08-13 16:36 | Emergency Department Note ---
Impression & Plan Chest pain, Elevated troponin I level, Dizziness, MEDRANO (dyspnea on exertion) ED Provider Note NAME: NINOSKA LANGFORD AGE: 74 SEX: F : 1945 ARRIVES VIA: Walk-In INFORMANT: Patient, ED PROVIDER(S): Antonio Gupta DO CHIEF COMPLAINT: Dizziness HPI: The patient is a 74-year-old female who presented to the emergency department with multiple complaints. The patient describes dizziness which she describes as vertigo. She feels that the symptoms began this morning. The patient states she also has been noticing chest pain in her lower chest over the course the last month. Pain is been intermittent. She is also been noticing shortness of breath especially with exertion. She has been very fatigued and has had trouble ambulating because of fatigue. She denies having any recent trauma. She did have some changes to her medication regimen recently. She also has been noticing some swelling in her lower extremities. She denies having any cough or fever. She states the headache is intermittent. The patient states a nytime she ambulates she does have worsening shortness of breath as well as worsening vertigo. The patient has not been seen by provider prior to coming to the emergency department. ROS: See above HPI for pertinent positives & negatives. A total of 10 systems reviewed and were otherwise negative. PAST MEDICAL HISTORY: See Below PAST SURGICAL HISTORY: See Below FAMILY HISTORY: See Below SOCIAL HISTORY: See Below HOME MEDICATIONS: See Below ALLERGIES: See Below VITALS: See Below PHYSICAL EXAMINATION: GENERAL: The patient is awake and alert. She is somewhat anxious appearing. EYES: The conjunctivae are clear. The pupils are round and reactive. No nystagmus was noted. EARS, NOSE, MOUTH AND THROAT: The nose is without any evidence of any deformity. NECK: The neck is nontender and supple. RESPIRATORY: Shallow respirations were noted. Diminished breath sounds are noted throughout. There was mild conversational dyspnea appreciated. CARDIOVASCULAR: Regular rate and rhythm noted there no murmurs rubs or gallops normal S1 normal S2. GASTROINTESTINAL: The abdomen is distended but soft. There is no specific tenderness guarding or rigidity. MUSCULOSKELETAL/EXTREMITIES: There is no evidence of gross deformity full range of motion is noted in the hips and shoulders. SKIN: Skin is warm and dry. Trace pedal edema was noted bilaterally. NEUROLOGIC: Patient is awake alert and oriented x3 strength is symmetric patellar reflexes are 2+ bilaterally MEDICAL DECISION MAKING: The patient is a 74-year-old female who presented to the emergency department with multiple complaints. The patient complained of chest pain as well as dizziness. She also had very severe dyspnea on exertion. The patient at rest had a normal saturation. She was placed on supplemental oxygen. I discussed the patient's laboratory and radiographic studies with her. Given the patient's comorbidities and findings in the emergency department I do feel she may be at high risk with her chest complaints. I discussed her case with the on-call [facility] [employer] [facility]. They have agreed to evaluate the patient in the emergency department for further management and disposition. Triage Nursing notes reviewed. Prior medical records reviewed Vital Signs: reviewed and remarkable for elevated blood pressure Differential diagnosis: Cardiac ischemia, aortic dissection, pulmonary embolism, pneumothorax, pneumonia, pericarditis, myocarditis, esophageal rupture, GERD, cholecystitis, pancreatitis, musculoskeletal, as well as other pathologies. ER treatment provided: See below Diagnostics interpreted by me: ECG: EKG was obtained in the emergency department. My interpretation is ventricular paced rhythm at 60 bpm. The right bundle branch block was favored. There were no [place] beats appreciated. This was compared to a tracing from November 222019. No significant changes noted. Cardiac Monitoring: An order was placed for continuous cardiac monitoring. The monitor shows a rate of 70 bpm with paced rhythm. Laboratory studies: As stated above and show below. Imaging studies: See below Consultation(s): 1849: I discussed this case with Dr. Bernstein who is on-call for the [employer] [facility] group. He is agreed to evaluate the patient in the emergency department. 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 () IUD surveillance Mild acid reflux Olecranon bursitis of right elbow Post-menopausal bleeding Repair of aortic valve with tissue graft (11/23/10) Urge incontinence of urine Vaginal bleeding Surgical History H/O aortic valve replacement 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 History of aortic aneurysm repair Hx of CABG CABG x1 (PACHECO TO LAD for LV hypokinesis-not CAD-- Done at the time of AVR and aortic root graft) 2002 Family History Mother Diabetes Myocardial infarction Sister Diabetes Son Hypertension Denies family history of Ovarian cancer Prostate cancer Breast cancer Lung cancer Colorectal cancer Cancer Social History Smoking Status: Never smoker Second Hand Exposure: No; Hx Alcohol Use: No Hx Substance Use: No Preferred Language: Bahamian Communication Ability: Effective Computer Lab Para Professional Required: No Beliefs That Will Affect Care: None marital status: / Current Living Situation: Family current occupational status: disabled Feels Safe at Home: Yes caffeine: Yes (soda) Dental Care, Regularly: No Physical Activity Frequency: Daily Seatbelt Use: sometimes Sunscreen Use: No Assistive Devices: Oxygen - Continuous Allergies Allergies Allergy/AdvReac Type Severity Reaction Status Date / Time aspirin Allergy Intermediate HIVES Verified 08/13/20 17:06 Iodinated Contrast Media Allergy Intermediate HIVES - Verified 08/13/20 17:06 MRI DYE levofloxacin Allergy Intermediate HIVES, Verified 08/13/20 17:06 VEIN IRRITATION W/IV LEVAQUIN erythromycin base Allergy Unknown UNKNOWN Verified 08/13/20 17:06 Home Meds Home Medications Medication Instructions Recorded Confirmed ascorbate calcium (vitamin C) 500 500 mg PO QAM 01/04/20 08/13/20 mg tablet atorvastatin 40 mg PO HS 08/13/20 08/13/20 cetyl,stear.alcoh-prop gly-sls 1 applic TOPICAL BID 08/13/20 08/13/20 [Cetaphil] cholecalciferol (vitamin D3) 25 mcg PO HS 08/13/20 08/13/20 [Vitamin D3] escitalopram oxalate 10 mg PO QAM 08/13/20 08/13/20 furosemide [Lasix] 40 mg PO QAM 08/13/20 08/13/20 omeprazole 20 mg PO QAM 08/13/20 08/13/20 Previous Rx's Medication Instructions Recorded blood sugar diagnostic #100 ea 06/03/19 blood-glucose meter #1 ea 06/03/19 lancing device #1 ea 07/30/19 lancets 30 gauge #200 ea 08/10/19 nystatin 100,000 unit/gram topical 1 applic TOPICAL BID #60 g 01/24/20 powder betamethasone dipropionate 0.05 % 1 applic TOPICAL BID #45 g 02/03/20 topical ointment metoprolol succinate 25 mg 25 mg PO QAM #90 tab 02/24/20 tablet,extended release 24 hr insulin glargine 100 unit/mL (3 5 unit SUBCUT HS #15 ml 06/21/20 mL) subcutaneous pen apixaban 2.5 mg tablet 2.5 mg PO BID #60 tab 07/14/20 Results & Data (ED) Vital Signs Vital Signs - 24 hr 08/13/20 15:59 08/13/20 16:31 08/13/20 18:00 Temperature 36.7 C Temperature Source Temporal Artery Scan Pulse Rate 69 69 60 Pulse Rate from SpO2 Sensor 60 Pulse Rhythm Regular Respiratory Rate 20 20 17 Respiratory Effort / Characteristics Non-Labored Spontaneous Respiratory Depth Normal Blood Pressure 144/97 H 169/109 H Blood Pressure Mean 112 129 Blood Pressure Position Sitting Pulse Oximetry 93 93 90 Oxygen Delivery Method Room Air Room Air Room Air Oxygen Flow Rate Sepsis Recent Fever Within 48 Hours No Sepsis New/Unexplained Change in Mental Status No Sepsis Action Taken by Nursing No Action Required 08/13/20 18:30 08/13/20 18:31 08/13/20 19:00 Temperature Temperature Source Pulse Rate 60 60 63 Pulse Rate from SpO2 Sensor 60 62 63 Pulse Rhythm Respiratory Rate 27 H 24 18 Respiratory Effort / Characteristics Respiratory Depth Blood Pressure 159/113 H 157/115 H Blood Pressure Mean 128 129 Blood Pressure Position Pulse Oximetry 100 100 100 Oxygen Delivery Method Nasal Cannula Oxygen Flow Rate 2 Sepsis Recent Fever Within 48 Hours Sepsis New/Unexplained Change in Mental Status Sepsis Action Taken by Custodial Medications Current Medication List: was personally reviewed by me Laboratory Data Attestation: I reviewed the patient's lab results. Result diagrams: 08/13/20 16:28 08/13/20 16:28 Lab Results 08/13/20 08/13/20 08/13/20 Range/Units 16:28 16:28 16:28 WBC 7.40 (4.8-10.8) K/uL RBC 4.76 (4.2-5.4) M/uL Hgb 13.9 (12.0-16.0) g/dL Hct 42.2 (37-47) % MCV 88.7 (80-100) fL MCH 29.2 (25-34) pg MCHC 32.9 (32-36) g/dL RDW Std Deviation 45.7 (36.4-46.3) fL RDW Coeff of Chriss 14.1 (11.5-14.5) % Plt Count 161 (130-400) K/uL MPV 9.7 (7.4-10.4) fL Immature Gran % (Auto) 0.0 % Neut % (Auto) 78.3 % Lymph % (Auto) 15.0 % [place] % (Auto) 5.5 % Eos % (Auto) 1.1 % Baso % (Auto) 0.1 % Neut # (Auto) 5.79 (1.4-6.5) K/uL Lymph # (Auto) 1.11 L (1.2-3.4) K/uL [place] # (Auto) 0.41 (0.11-0.59) K/uL Eos # (Auto) 0.08 (0-0.5) K/uL Baso # (Auto) 0.01 (0-0.2) K/uL Immature Gran # (Auto) 0.00 (0.00-0.02) K/uL PT 11.3 (9.0-12.0) Seconds INR 1.1 (0.9-1.1) APTT 24.4 (21.0-31.0) Seconds PTT Ratio 0.9 VBG pH (7.36-7.41) VBG pCO2 (38-50) mmHg VBG pO2 mmHg VBG HCO3 mmol/L VBG O2 Saturation % VBG Base Excess mEq/L Barometric Pressure mm/Hg Sodium 141 (136-145) mmol/L Potassium 4.7 (3.5-5.1) mmol/L Chloride 109 H (98-107) mmol/L Carbon Dioxide 29 (21-32) mmol/L Anion Gap 3.0 (3-11) BUN 24 H (7-18) mg/dl Creatinine 1.71 H (0.6-1.2) mg/dl Est Cr Clr Drug Dosing Not Reportable Est GFR ( Amer) 33.1 Est GFR (Non-Af Amer) 28.6 BUN/Creatinine Ratio 14.3 (10-20) Glucose 201 H (70-99) mg/dl Calcium 9.3 (8.5-10.1) mg/dl Magnesium 1.8 (1.8-2.4) mg/dl Total Bilirubin 0.9 (0.2-1) mg/dl AST 19 (15-37) U/L ALT 33 (12-78) U/L Alkaline Phosphatase 161 H (45-117) U/L Troponin I 0.048 H* (0-0.045) ng/ml Total Protein 7.0 (6.4-8.2) gm/dl Albumin 3.6 (3.4-5.0) gm/dl Globulin 3.4 (2.5-4.0) gm/dl Albumin/Globulin Ratio 1.1 (0.9-2) TSH 2.800 (0.300-4.500) uIu/ml COVID-19 Eval Order 08/13/20 08/13/20 Range/Units 16:28 18:50 WBC (4.8-10.8) K/uL RBC (4.2-5.4) M/uL Hgb (12.0-16.0) g/dL Hct (37-47) % MCV (80-100) fL MCH (25-34) pg MCHC (32-36) g/dL RDW Std Deviation (36.4-46.3) fL RDW Coeff of Chriss (11.5-14.5) % Plt Count (130-400) K/uL MPV (7.4-10.4) fL Immature Gran % (Auto) % Neut % (Auto) % Lymph % (Auto) % [place] % (Auto) % Eos % (Auto) % Baso % (Auto) % Neut # (Auto) (1.4-6.5) K/uL Lymph # (Auto) (1.2-3.4) K/uL [place] # (Auto) (0.11-0.59) K/uL Eos # (Auto) (0-0.5) K/uL Baso # (Auto) (0-0.2) K/uL Immature Gran # (Auto) (0.00-0.02) K/uL PT (9.0-12.0) Seconds INR (0.9-1.1) APTT (21.0-31.0) Seconds PTT Ratio VBG pH 7.40 (7.36-7.41) VBG pCO2 45 (38-50) mmHg VBG pO2 37 mmHg VBG HCO3 27 mmol/L VBG O2 Saturation 69.4 % VBG Base Excess 1.7 mEq/L Barometric Pressure 732.4 mm/Hg Sodium (136-145) mmol/L Potassium (3.5-5.1) mmol/L Chloride (98-107) mmol/L Carbon Dioxide (21-32) mmol/L Anion Gap (3-11) BUN (7-18) mg/dl Creatinine (0.6-1.2) mg/dl Est Cr Clr Drug Dosing Est GFR ( Amer) Est GFR (Non-Af Amer) BUN/Creatinine Ratio (10-20) Glucose (70-99) mg/dl Calcium (8.5-10.1) mg/dl Magnesium (1.8-2.4) mg/dl Total Bilirubin (0.2-1) mg/dl AST (15-37) U/L ALT (12-78) U/L Alkaline Phosphatase (45-117) U/L Troponin I (0-0.045) ng/ml Total Protein (6.4-8.2) gm/dl Albumin (3.4-5.0) gm/dl Globulin (2.5-4.0) gm/dl Albumin/Globulin Ratio (0.9-2) TSH (0.300-4.500) uIu/ml COVID-19 Eval Order CovFluRsv at [facility] Administered Medications Discontinued Medications Ondansetron HCl (Ondansetron Inj 2 Mg/Ml 2 Ml Vial) 4 mg IV NOW STA Stop: 08/13/20 16:09 Last Admin: 08/13/20 16:33 Dose: 4 mg Documented by: [id number] Imaging Data Radiologist's Impression: Chest X-Ray 08/13/20 16:07 SINGLE VIEW CHEST CLINICAL HISTORY: Generalized weakness. FINDINGS: An AP, portable, upright chest radiograph is compared to study dated 11/23/2019 and correlated with chest CT dated 08/03/2019. The patient is status post midline sternotomy. A 3-lead cardiac AICD is unchanged in position and partially obscures the left lower chest. The heart is enlarged noting atherosclerotic calcification of the thoracic aorta. The pulmonary vasculature is noncongested. Chronic interstitial thickening is similar to previous. Atelectasis is noted at the lung bases. No airspace consolidation or large pleural effusion is identified. No pneumothorax is seen. The skeletal structures are osteopenic. The bony thorax is grossly intact. Degenerative change is noted in the shoulders and thoracic spine. IMPRESSION: 1. Cardiomegaly and AICD. There is no radiographic evidence of congestive failure. 2. No airspace consolidation or large pleural effusion is identified. ACT 112: Negative or not required by law. Electronically signed by: Johan Martinez M.D. 08/13/2020 5:[address] 08/13/20 16:07 CT SCAN OF THE BRAIN WITHOUT IV CONTRAST CLINICAL HISTORY: Dizziness. COMPARISON STUDY: CT of the brain dated 04/18/2015. MRI of the brain dated 05/28/2006. TECHNIQUE: Unenhanced axial CT scan of the brain is performed from the vertex to the skull base. A dose lowering technique was utilized adhering to the principles of ALARA. CT DOSE: 537.48 mGy.cm FINDINGS: Brain parenchyma: There are age-related involutional changes noting moderate subcortical and periventricular microangiopathic change. Left cerebellar enc ephalomalacia is consistent with a remote insult. A chronic lacunar infarct is noted in the left internal capsule. There is no hemorrhage, mass effect, or evidence of acute territorial ischemia by CT criteria. Vides-white matter differentiation is preserved. No extra-axial fluid collection is seen. Ventricles, sulci, cisterns: Prominent secondary to involutional change. Intracranial vasculature: There is atherosclerotic calcification of the cave rnous carotid and vertebral arteries. Calvarium: Unremarkable. Sinuses and mastoids: The visualized paranasal sinuses are clear. There is a small left mastoid effusion. The right mastoid air cells are well pneumatized. Orbits: The bony orbits are grossly intact. There is a left ocular lens implant. IMPRESSION: There is no hemorrhage, mass effect, or evidence of acute territorial ischemia by CT criteria. ACT 112: Negative or not required by law. Electronically signed by: Johan Martinez M.D. 08/13/2020 6:19 PM Discharge Plan Visit Data Chief Complaint: Nausea Stated Complaint: CHEST PAIN PRIOR, SIDE PAIN, NOT FEELING WELL ED Provider: Antonio Gupta Discharge Problem: Chest pain, Elevated troponin I level, Dizziness, MEDRANO (dyspnea on exertion) Patient Disposition: Being Evaluated by Hospitalist Condition: Good Forms Stand Alone Forms: My [facility] [email or web address] Prescriptions Prescriptions: No Action (DME) Accu-Chek Imani Plus test strp Strip See Rx Instructions .ROUTE .MEDSUPPLY Qty: 100 RF: 3 (DME) blood-glucose meter [Accu-Chek Imani Plus Meter] Misc See Rx Instructions .ROUTE .MEDSUPPLY Qty: 1 RF: 0 (DME) lancing device Misc See Rx Instructions .ROUTE .MEDSUPPLY Qty: 1 RF: 0 (DME) lancets [Easy Touch Lancets] 30 gauge misc See Rx Instructions .ROUTE .MEDSUPPLY Qty: 200 RF: 5 metoprolol succinate 25 mg tablet extended release 24 hr 25 mg PO QAM Qty: 90 RF: 3 Lantus Solostar U-100 Insulin 100 unit/mL (3 mL) insulin pen 5 unit SUBCUT HS Qty: 15 RF: 0 Eliquis 2.5 mg tablet 2.5 mg PO BID Qty: 60 RF: 11 ascorbate calcium (vitamin C) 500 mg tablet 500 mg PO QAM RF: 0 betamethasone dipropionate 0.05 % ointment 1 applic topical BID Qty: 45 RF: 0 nystatin 100,000 unit/gram powder 1 applic topical BID Qty: 60 RF: 0 Cetaphil Cream 1 applic TOPICAL BID RF: 0 cholecalciferol (vitamin D3) [Vitamin D3] 25 mcg (1,000 unit) Tablet 25 mcg PO HS RF: 0 furosemide [Lasix] 40 mg tablet 40 mg PO QAM RF: 0 atorvastatin 40 mg tablet 40 mg PO HS RF: 0 omeprazole 20 mg capsule,delayed release(DR/EC) 20 mg PO QAM RF: 0 escitalopram oxalate 10 mg tablet 10 mg PO QAM RF: 0 Referrals Referrals: Aimee Crook CRNP [Primary Care Provider] - Discharge Problem: Chest pain Qualifiers: Chest pain type: unspecified Qualified Code(s): R07.9 - Chest pain, unspecified
[2020-08-13 16:39] LABS: Basophils # (auto) 0.01 K/uL (0-0.2); Basophils % (auto) 0.1 %; Eosinophils # (auto) 0.08 K/uL (0-0.5); Eosinophils % (auto) 1.1 %; Hematocrit (blood only) 42.2 % (37-47); Hemoglobin 13.9 g/dL (12.0-16.0); Lymphocytes # (auto) 1.11 K/uL (1.2-3.4); Mean Corpuscular Hemoglobin 29.2 pg (25-34); Mean Corpuscular Hgb Conc 32.9 g/dL (32-36); Mean Corpuscular Volume 88.7 fL (80-100); Mean Platelet Volume 9.7 fL (7.4-10.4); Monocytes # (auto) 0.41 K/uL (0.11-0.59); Monocytes % (auto) 5.5 %; Neutrophils # (auto) 5.79 K/uL (1.4-6.5); Neutrophils % (auto) 78.3 %; Platelet Count 161 K/uL (130-400); RDW Coefficient of Variation 14.1 % (11.5-14.5); RDW Standard Deviation 45.7 fL (36.4-46.3); Red Blood Count 4.76 M/uL (4.2-5.4)
[2020-08-13 16:45] LABS: Base Excess VBG 1.7 mEq/L; Oxygen Saturation VBG 69.4 %; pH VBG 7.4 (7.36-7.41)
[2020-08-13 16:49] LABS: INR 1.1 (0.9-1.1); Partial Thromboplastin Ratio 0.9; Partial Thromboplastin Time 24.4 Seconds (21.0-31.0); Prothrombin Time 11.3 Seconds (9.0-12.0)
[2020-08-13 16:58] LABS: Alanine Aminotransferase 33 U/L (12-78); Albumin Level 3.6 gm/dl (3.4-5.0); Aspartate Aminotransferase 19 U/L (15-37); BUN Creatinine Ratio 14.3 (10-20); Blood Urea Nitrogen 24 mg/dl (7-18); Calcium 9.3 mg/dl (8.5-10.1); Carbon Dioxide 29 mmol/L (21-32); Chloride 109 mmol/L (98-107); Est GFR (African American) 33.1; Est GFR (Non-African American) 28.6; Glucose 201 mg/dl (70-99); Magnesium 1.8 mg/dl (1.8-2.4); Potassium 4.7 mmol/L (3.5-5.1); Sodium 141 mmol/L (136-145)
[2020-08-13 17:13] LABS: Albumin Globulin Ratio 1.1 (0.9-2); Alkaline Phosphatase 161 U/L (45-117); Bilirubin,Total 0.9 mg/dl (0.2-1); Globulin 3.4 gm/dl (2.5-4.0); Troponin I 0.048 ng/ml (0-0.045)
--- NOTE | 2020-08-13 17:14 | XRay Report ---
SINGLE VIEW CHEST CLINICAL HISTORY: Generalized weakness. FINDINGS: An AP, portable, upright chest radiograph is compared to study dated 11/23/2019 and correlat ed with chest CT dated 08/03/2019. The patient is status post midline sternotomy. A 3-lead cardiac AIC D is unchanged in position and partially obscures the left lower chest. The heart is enlarged noting atherosclerotic calcification of the thoracic aorta. The pulmonary vasculature is noncongested. Chron ic interstitial thickening is similar to previous. Atelectasis is noted at the lung bases. No airspac e consolidation or large pleural effusion is identified. No pneumothorax is seen. The skeletal struct ures are osteopenic. The bony thorax is grossly intact. Degenerative change is noted in the shoulders and thoracic spine. IMPRESSION: 1. Cardiomegaly and AICD. There is no radiographic evidence of congestive failure. 2. No airspace consolidation or large pleural effusion is identified. ACT 112: Negative or not required by law. Electronically signed by: Johan Martinez M.D. 08/13/2020 5:12 PM
--- NOTE | 2020-08-13 18:20 | CT Scan Report ---
CT SCAN OF THE BRAIN WITHOUT IV CONTRAST CLINICAL HISTORY: Dizziness. COMPARISON STUDY: CT of the brain dated 04/18/2015. MRI of the brain dated 05/28/2006. TECHNIQUE: Unenhanced axial CT scan of the brain is performed from the vertex to the skull base. A do se lowering technique was utilized adhering to the principles of ALARA. CT DOSE: 537.48 mGy.cm FINDINGS: Brain parenchyma: There are age-related involutional changes noting moderate subcortical and periven tricular microangiopathic change. Left cerebellar encephalomalacia is consistent with a remote insult . A chronic lacunar infarct is noted in the left internal capsule. There is no hemorrhage, mass effec t, or evidence of acute territorial ischemia by CT criteria. Vides-white matter differentiation is pre served. No extra-axial fluid collection is seen. Ventricles, sulci, cisterns: Prominent secondary to involutional change. Intracranial vasculature: There is atherosclerotic calcification of the cavernous carotid and vertebr al arteries. Calvarium: Unremarkable. Sinuses and mastoids: The visualized paranasal sinuses are clear. There is a small left mastoid effus ion. The right mastoid air cells are well pneumatized. Orbits: The bony orbits are grossly intact. There is a left ocular lens implant. IMPRESSION: There is no hemorrhage, mass effect, or evidence of acute territorial ischemia by CT cassy gracia. ACT 112: Negative or not required by law. Electronically signed by: Johan Martinez M.D. 08/13/2020 6:19 PM
--- NOTE | 2020-08-13 19:08 | History & Physical Report ---
Date of Service August 13, 2020 History of Present Illness Primary Care Provider: COOPER Cuevas Isabel Quick is a 74 year old feamle who presents to the ER with multiple complaints of dizziness, nausea, shortness of breath Shard chest pain across her front for last 2 months Allergies Allergy/AdvReac Type Severity Reaction Status Date / Time aspirin Allergy Intermediate HIVES Verified 08/13/20 17:06 Iodinated Contrast Media Allergy Intermediate HIVES - Verified 08/13/20 17:06 MRI DYE levofloxacin Allergy Intermediate HIVES, Verified 08/13/20 17:06 VEIN IRRITATION W/IV LEVAQUIN erythromycin base Allergy Unknown UNKNOWN Verified 08/13/20 17:06 Home Medications Medication Instructions Recorded Confirmed Type blood sugar diagnostic #100 ea 06/03/19 02/03/20 Rx blood-glucose meter #1 ea 06/03/19 02/03/20 Rx lancing device #1 ea 07/30/19 02/03/20 Rx lancets 30 gauge #200 ea 08/10/19 02/03/20 Rx ascorbate calcium (vitamin C) 500 500 mg PO QAM 01/04/20 08/13/20 History mg tablet nystatin 100,000 unit/gram topical 1 applic TOPICAL BID #60 g 01/24/20 08/13/20 Rx powder betamethasone dipropionate 0.05 % 1 applic TOPICAL BID #45 g 02/03/20 08/13/20 Rx topical ointment metoprolol succinate 25 mg 25 mg PO QAM #90 tab 02/24/20 08/13/20 Rx tablet,extended release 24 hr insulin glargine 100 unit/mL (3 5 unit SUBCUT HS #15 ml 06/21/20 08/13/20 Rx mL) subcutaneous pen apixaban 2.5 mg tablet 2.5 mg PO BID #60 tab 07/14/20 08/13/20 Rx atorvastatin 40 mg PO HS 08/13/20 08/13/20 History cetyl,stear.alcoh-prop gly-sls 1 applic TOPICAL BID 08/13/20 08/13/20 History [Cetaphil] cholecalciferol (vitamin D3) 25 mcg PO HS 08/13/20 08/13/20 History [Vitamin D3] escitalopram oxalate 10 mg PO QAM 08/13/20 08/13/20 History furosemide [Lasix] 40 mg PO QAM 08/13/20 08/13/20 History omeprazole 20 mg PO QAM 08/13/20 08/13/20 History Past Med/Surg History Medical History Aortic valve disorder Beta shayne toxicity Cellulitis COPD with acute exacerbation CVA (cerebral vascular accident) (11/23/10) Esophageal dysmotility Hematuria History of - coronary artery bypass grafting (11/23/10) 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) IUD surveillance Mild acid reflux Olecranon bursitis of right elbow Post-menopausal bleeding Repair of aortic valve with tissue graft (11/23/10) Urge incontinence of urine Vaginal bleeding Surgical History H/O aortic valve replacement 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 History of aortic aneurysm repair Hx of CABG CABG x1 (PACHECO TO LAD for LV hypokinesis-not CAD-- Done at the time of AVR and aortic root graft) 2002 Family History Mother Diabetes Myocardial infarction Sister Diabetes Son Hypertension Denies family history of Ovarian cancer Prostate cancer Breast cancer Lung cancer Colorectal cancer Cancer Social History Smoking Status: Never smoker Second Hand Exposure: No; Hx Alcohol Use: No Hx Substance Use: No Preferred Language: Ivorian Communication Ability: Effective Display Fabrication Supervisor Required: No Beliefs That Will Affect Care: None marital status: / Current Living Situation: Family current occupational status: disabled Feels Safe at Home: Yes caffeine: Yes (soda) Dental Care, Regularly: No Physical Activity Frequency: Daily Seatbelt Use: sometimes Sunscreen Use: No Assistive Devices: Oxygen - Continuous Results & Data Results & Data ([facility]) Vital Signs (Past 12 Hours) Vital Signs Temp Pulse Resp BP Pulse Ox 08/13/20 18:31 60 24 100 08/13/20 18:30 60 27 H 159/113 H 100 08/13/20 18:00 60 17 169/109 H 90 08/13/20 16:31 69 20 93 04/04/21 15:59 36.7 C 69 20 144/97 H 93 PG Care Time/CCT Total # of Minutes Spent Total Time Spent with Patient: Total time spent is greater than 50% in coordination of care (as documented) at patient's floor/unit and/or counseling patient: Coding
[2020-08-13 19:51] LABS: Influenza A virus by PCR Negative (Neg); Influenza B virus by PCR Negative (Neg); RSV by PCR Negative (Neg); SARS CoV2 RNA(COVID-19) InHosp NEGATIVE (Negative)
[2020-08-13] MEDS ORDERED: FUROSEMIDE 40 MG/4 ML VIAL IV STA (21:15)
[2020-08-13] MEDS ORDERED: MAGNESIUM SULFATE / D5W 1 GM/100 ML BAG IV STA (21:15)
--- NOTE | 2020-08-13 21:18 | History & Physical Report ---
Date of Service August 13, 2020 Assessment & Plan (1) MEDRANO (dyspnea on exertion): Patient is a 74 year old female with PMHx Paroxysmal Afib, GERD, CKD, HTN, HLD, DIAMOND, DM2, HFrEF EF 25-30%, S/P Biventricular ICD that presented from home secondary to dizziness and worsening SOB at home. Dyspnea on Exertion -?secondary to start of a CHF exacerbation. -Last Echo 12/23/19 with EF 25-30% -With worsening LE edema the past few days in addition to crackles on lung exam worse in the R base -No evidence on CXR -Pro-BNP elevated at 6630. -Was to restart Lasix today at home but has not done so yet, will order for Lasix 20mg IV now and monitor patients I/O's, may require a higher dose due to her CKD -Continue O2 PRN for saturations >92%, patient notes she does use 2L O2 NC at home PRN at baseline though her home machine "has not been working the past year." -Monitor I/O's, Daily weights -Consider addition of Alexis catheter for I/O measurement as patient does have urinary incontinence at baseline. Abdominal Pain -Suspect pain is more secondary to worsening of GERD -Will increase home Omeprazole from 20mg QD to 40mg BID acutely CKD Stage 4 -Base Cr 1.8-2 -Stable at 1.71 on admission, continue to monitor with initiation of diuretic -Will also supplement magnesium with 2g IV as patient is at 1.8 on admission and there are plans for diuresis. Paroxysmal Afib -Continue home metoprolol -Continue low dose Eliquis Elevated Troponin -Chronically elevated -Notably actually lower than a majority of prior admissions at 0.048, no chest pain or pressure. -No plans on repeat testing unless patient develops new onset chest pain, pressure. Ischemic Cardiomyopathy S/P ICD -continue metoprolol Hypertension -Continue Metoprolol -Had been on Lisinopril in the past, but was stopped due to orthostasis/SUSSY DM2 -SSI and Basal bolus BID Depression -Continue Lexapro HLD -Continue atorvastatin DIAMOND -Diagnosed in the past via sleep study per patient, though has not been wearing CPAP -Will trial CPAP while in hospital qhs Dispo: Med/Surg telemetry for fluid balance monitoring, rhythm monitoring FEN: HH low Na diet DVT: Eliquis BID Code: Full (2) Chest pain: (3) Diabetes mellitus type 2 in obese: (4) AF (paroxysmal atrial fibrillation): (5) Depression: (6) Hyperlipidemia: (7) Hypertension: (8) Obstructive sleep apnea: History of Present Illness Chief Complaint: Vertigo, Dyspnea on Exertion, Abdominal Pain Primary Care Provider: COOPER Cuevas Patient is a 74 year old female with PMHx Paroxysmal Afib, GERD, CKD, HTN, HLD, DIAMOND, DM2, HFrEF EF 25-30%, S/P Biventricular ICD that presented from home secondary to dizziness and worsening SOB at home. She notes that she woke up this morning and was feeling dizzy with a headache which seemed to worsen when she went to stand up. She states that she went back to sleep and when her family attempted to arouse her she was slow to wake and they were concerned that she would require evaluation. She notes that recently she has been having on and off chest pain for the past 1 month primarily with shortness of breath. She notes she is to use 2L oxygen by [place] PRN, however, her machine has not been working for the better part of 1 year. She also notes upper abdominal pain b/l that comes and goes. She states that pain was last noted the day prior when she also experienced nausea. She notes in addition to the pain and nausea she has had frequent belching. She states currently that she has a slight headache, urinary incontinence which is chronic, and shortness of breath though improved. She denies any chest pain, pressure, fever, chills, diarrhea, dysuria. She states that she was instructed to start taking her lasix again today due to swelling in her legs, though she has not done so yet. She is unsure of her salt intake and states that it varies, though she knows she is supposed to keep it at a minimal. Med Hx: CKD, s/p ICD, HTN, GERD, HLD, DIAMOND, DM2, HFrEF Surg Hx: ICD placement 10 years ago, Appendectomy, x3, Cholecystectomy, Aortic valve replacement porcine 2002, CABG PACHECO to LAD for LV hypokinesis 2002 Soc Hx: No tobacco, alcohol, or illicit drug usage. Allergies Allergy/AdvReac Type Severity Reaction Status Date / Time aspirin Allergy Intermediate HIVES Verified 08/13/20 17:06 Iodinated Contrast Media Allergy Intermediate HIVES - Verified 08/13/20 17:06 MRI DYE levofloxacin Allergy Intermediate HIVES, Verified 08/13/20 17:06 VEIN IRRITATION W/IV LEVAQUIN erythromycin base Allergy Unknown UNKNOWN Verified 08/13/20 17:06 Home Medications Medication Instructions Recorded Confirmed Type blood sugar diagnostic #100 ea 06/03/19 02/03/20 Rx blood-glucose meter #1 ea 06/03/19 02/03/20 Rx lancing device #1 ea 07/30/19 02/03/20 Rx lancets 30 gauge #200 ea 08/10/19 02/03/20 Rx ascorbate calcium (vitamin C) 500 500 mg PO QAM 01/04/20 08/13/20 History mg tablet nystatin 100,000 unit/gram topical 1 applic TOPICAL BID #60 g 01/24/20 08/13/20 Rx powder betamethasone dipropionate 0.05 % 1 applic TOPICAL BID #45 g 02/03/20 08/13/20 Rx topical ointment metoprolol succinate 25 mg 25 mg PO QAM #90 tab 02/24/20 08/13/20 Rx tablet,extended release 24 hr insulin glargine 100 unit/mL (3 5 unit SUBCUT HS #15 ml 06/21/20 08/13/20 Rx mL) subcutaneous pen apixaban 2.5 mg tablet 2.5 mg PO BID #60 tab 07/14/20 08/13/20 Rx atorvastatin 40 mg PO HS 08/13/20 08/13/20 History cetyl,stear.alcoh-prop gly-sls 1 applic TOPICAL BID 08/13/20 08/13/20 History [Cetaphil] cholecalciferol (vitamin D3) 25 mcg PO HS 08/13/20 08/13/20 History [Vitamin D3] escitalopram oxalate 10 mg PO QAM 08/13/20 08/13/20 History furosemide [Lasix] 40 mg PO QAM 08/13/20 08/13/20 History omeprazole 20 mg PO QAM 08/13/20 08/13/20 History 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) IUD surveillance Mild acid reflux Olecranon bursitis of right elbow Post-menopausal bleeding Repair of aortic valve with tissue graft (11/23/10) Urge incontinence of urine Vaginal bleeding Surgical History H/O aortic valve replacement 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 History of aortic aneurysm repair Hx of CABG CABG x1 (PACHECO TO LAD for LV hypokinesis-not CAD-- Done at the time of AVR and aortic root graft) 2002 Family History Mother Diabetes Myocardial infarction Sister Diabetes Son Hypertension Denies family history of Ovarian cancer Prostate cancer Breast cancer Lung cancer Colorectal cancer Cancer Social History Smoking Status: Never smoker Second Hand Exposure: No; Do You Dip or Chew Tobacco: No; Hx Alcohol Use: No Hx Substance Use: No Preferred Language: Icelandic Communication Ability: Effective Student Counselor Required: No Beliefs That Will Affect Care: None marital status: / Current Living Situation: Family current occupational status: disabled Other Information That Helps Us Care for You: No Feels Safe at Home: Yes Safety Concerns: Feels Safe At This Time caffeine: Yes (soda) Dental Care, Regularly: No Physical Activity Frequency: Daily Seatbelt Use: sometimes Sunscreen Use: No Assistive Devices: Oxygen - Continuous and Walker Review of Systems Review of Systems: All systems reviewed & are unremarkable except as noted in Subjective Physical Exam Constitutional: cooperative; no acute distress Eyes: PERRL, conjunctivae normal, anicteric sclerae ENMT: external ear and nose normal, oropharynx normal Respiratory: normal respiratory effort (2L NC ); no cough Auscultation: + crackles (in the bases R>L ); no rales and no wheezes Cardiovascular: Rate/Rhythm: regular rate and regular rhythm Heart Sounds: no murmur Vessels: no JVD Extremities: + edema (+1-2 LE b/l ) Chest (Breasts): Chest: + pacemaker (L chest wall ) Gastrointestinal (Abdomen): Inspection/Auscultation: abdomen normal to inspection and normal bowel sounds; abdomen not distended Percussion/Palpation: + abdomen tender (slight TTP in the upper quadrants b/l, L>R ) and abdomen soft Musculoskeletal: no cyanosis or clubbing, extremities motor strength 5/5 Head/Neck/Chest: normocephalic and head atraumatic Skin: no rashes, warm and dry Neurologic: PERRL, EOMI, accommodation nl, no face palsy, no dysarthria moves all extremities Psychiatric: A+Ox3, euthymic affect Results & Data Results & Data ([facility]) Vital Signs (Past 12 Hours) Vital Signs Temp Pulse Resp BP Pulse Ox 08/13/20 20:01 60 22 155/88 H 100 08/13/20 19:31 64 28 H 187/110 H 100 08/13/20 19:00 63 18 157/115 H 100 08/13/20 18:31 60 24 100 08/13/20 18:30 60 27 H 159/113 H 100 08/13/20 18:00 60 17 169/109 H 90 08/13/20 16:31 69 20 93 08/13/20 15:59 36.7 C 69 20 144/97 H 93 Code Status & VTE Plan VTE Prophylaxis Plan VTE Prophylaxis will be ordered: Yes Supervising Physician Co-Signing Physician Notes Attending addendum: I have physically seen this patient, have supervised the medical residents activities, and agree with the H&P unless as otherwise noted. Assessment and Plan: Elevated troponin/CAD/cardiomyopathy/CHF/NYHA class III/hype rtension/biventricular ICD/PAF- The patient will be admitted to telemetry for serial cardiac enzymes, serial EKG's, cardiac rhythm monitoring and a 2-D echocardiogram with Dopplers. Troponin chronically elevated, with range 0.046-0.10. Last known ejection fraction 25-30% on 12/23/2019 Continue apixaban, metoprolol succinate. Start Lasix IV and monitor response. Consult cardiology CKD stage IV- Creatinine 1.71 upon admission, with range 1.72-3.54 Follow serially Remaining orders and notations as noted Resident Activity Tracking Resident Involvement: Resident Care Provided Care Provided: Adult [facility] Medicine (1) Depression Active/Remission status: remission status unspecified Depression Type: major depressive disorder Major depression recurrence: recurrent Qualified Code(s): F33.9 - Major depressive disorder, recurrent, unspecified (2) Hyperlipidemia Hyperlipidemia type: unspecified Qualified Code(s): E78.5 - Hyperlipidemia, unspecified (3) Chest pain Chest pain type: unspecified Qualified Code(s): R07.9 - Chest pain, unspec ified (4) Hypertension Hypertension type: essential hypertension Qualified Code(s): I10 - Essential (primary) hypertension
[2020-08-13 22:09] LABS: Appearance Urine Clear (Clear); Bacteria Urine Automated Negative (Negative); Bilirubin Urine Negative (Negative); Blood Urine Negative (Negative); Cast Urine Automated 0 /lpf (0-5); Color Urine Yellow; Epithelial Cell Urine Auto >30 /lpf (0-5); Glucose Urine UA Negative (Negative); Ketones Urine Negative (Negative); Leukocyte Esterase Urine Trace (Negative); Nitrite Urine Negative (Negative); Protein Urine 2+ (Negative); RBC Urine Automated 0-4 /hpf (0-4); Specific Gravity Urine 1.021 (1.000-1.030); Urobilinogen Urine Negative (Negative)
[2020-08-13] MEDS ORDERED: GLUCOSE 10 TABS/TUBE PO PRN (22:21)
[2020-08-13] MEDS ORDERED: CARBOHYDRATES FOR HYPOGLYCEMIA PO PRN (22:21)
[2020-08-13] MEDS ORDERED: GLUCAGON FOR INJ 1 MG VIAL SQ PRN (22:21)
[2020-08-13] MEDS ORDERED: GLUCOSE 40% GEL 15 GM TUBE PO PRN (22:21)
[2020-08-13] MEDS ORDERED: DEXTROSE 50% 50 ML SYRINGE IV PRN (22:21)
[2020-08-13] MEDS: PANTOprazole 40 MG TAB PO SCH (23:34)
[2020-08-13] MEDS: APIXABAN 2.5 MG TAB PO SCH (23:34)
[2020-08-14 06:35] LABS: Basophils # (auto) 0.01 K/uL (0-0.2); Basophils % (auto) 0.1 %; Eosinophils # (auto) 0.11 K/uL (0-0.5); Eosinophils % (auto) 1.6 %; Hematocrit (blood only) 39.9 % (37-47); Immature Granulocytes # (auto) 0.01 K/uL (0.00-0.02); Immature Granulocytes % (auto) 0.1 %; Lymphocytes # (auto) 1.47 K/uL (1.2-3.4); Lymphocytes % (auto) 21.9 %; Mean Corpuscular Hemoglobin 29.1 pg (25-34); Mean Corpuscular Hgb Conc 32.6 g/dL (32-36); Mean Corpuscular Volume 89.5 fL (80-100); Mean Platelet Volume 9.9 fL (7.4-10.4); Monocytes # (auto) 0.54 K/uL (0.11-0.59); Neutrophils # (auto) 4.58 K/uL (1.4-6.5); Neutrophils % (auto) 68.3 %; Platelet Count 147 K/uL (130-400); RDW Standard Deviation 46.2 fL (36.4-46.3); Red Blood Count 4.46 M/uL (4.2-5.4); White Blood Count 6.72 K/uL (4.8-10.8)
[2020-08-14 07:07] LABS: BUN Creatinine Ratio 13.2 (10-20); Calcium 9.4 mg/dl (8.5-10.1); Creatinine Clr Calc Pharmacy 28.7 ml/min; Est GFR (African American) 31.1; Est GFR (Non-African American) 26.9; Magnesium 2.1 mg/dl (1.8-2.4); Potassium 4.1 mmol/L (3.5-5.1)
--- NOTE | 2020-08-14 07:42 | Hospitalist Progress Note ---
Date of Service August 14, 2020 Assessment & Plan (1) MEDRANO (dyspnea on exertion): Patient is a 74 year old female with PMHx Paroxysmal Afib, GERD, CKD, HTN, HLD, DIAMOND, DM2, HFrEF EF 25-30%, S/P Biventricular ICD that presented from home secondary to dizziness and worsening SOB at home. Acute on chronic systolic heart failure -Last Echo 12/23/19 with EF 25-30% -Pro-BNP elevated at 6630. -Was to restart Lasix at home but did not -Continue O2 PRN for saturations >92%, patient notes she does use 2L O2 NC at home PRN at baseline though her home machine "has not been working the past year." Wt is about 218 dry weight is around 212 Abdominal Pain -Suspect pain is more secondary to worsening of GERD -Will increase home Omeprazole from 20mg QD to 40mg BID acutely CT abdomen pelvis with oral contrast due to CKD 4 shows no acute intra abdominal pathology, CKD Stage 4 -Base Cr 1.8-2 -Stable on admission, continue to monitor with initiation of diuretic Paroxysmal Afib -rate controlled on metoprolol -Continues low dose Eliquis Elevated Troponin -Chronically elevated -Notably actually lower than a majority of prior admissions at 0.048, no chest pain or pressure. -No plans on repeat testing unless patient develops new onset chest pain, pressure. Ischemic Cardiomyopathy S/P ICD -continue metoprolol Hypertension -Continue Metoprolol -Had been on Lisinopril in the past, but was stopped due to orthostasis/SUSSY DM2 -SSI and Basal bolus BID Depression -Continue Lexapro HLD -Continue atorvastatin DIAMOND -Diagnosed in the past via sleep study per patient, though has not been wearing CPAP -Will trial CPAP while in hospital [facility] Dispo: Med/Surg telemetry for fluid balance monitoring, rhythm monitoring FEN: HH low Na diet DVT: Eliquis BID Code: Full (2) Chest pain: (3) Diabetes mellitus type 2 in obese: (4) AF (paroxysmal atrial fibrillation): (5) Depression: (6) Hyperlipidemia: (7) Hypertension: (8) Obstructive sleep apnea: Admission and Anticipated Discharge Date Admission Date: August 13, 2020 Subjective pt states that overall she feels better, improved breathing, but ruq abd pain, h/o cholecystectomy. pain is difficult to localize but is not worsened post p randially Review of Systems Review of Systems: Mild distress and fatigue no headache, blurry or double vision no speech or swallowing issues no chest pain, pressure or palpitations Improving shortness of breath, cough or wheezes Right upper quadrant abdominal pain, without nausea or vomiting no dysuria, hematuria or frequency no focal joint pain persistent chronic lower extremity swelling no back pain, CVA tenderness or radicular pain no bruising, bleeding or rashes no focal signs of weakness or numbness or altered sensation no complaints of anxiety or depression.. Physical Exam Physical Exam: The patient appeared well nourished and she is morbidly obese with BMI 41 Vital signs as documented. Head exam is normocephalic atraumatic no scleral icterus Neck is without JVD, thyromegaly, or carotid bruits. Lungs are diminished at the bases, no focal loss of breath sounds Cardiac exam, Rhythm is regular.. No murmurs, rubs or gallops. Abdominal exam reveals normal bowel sounds, soft, tender on right cannot say if true RUQ tenderness or ASIS tenderness Extremities are mildly edematous and both pedal pulses are present Neurologic exam is alert and oriented, no focal loss of strength or sensation Skin is without bruises or rashes Psychologically is without concerns for anxiety or depression Results & Data Results & [facility] ([facility]) Vital Signs (Past 12 Hours) Vital Signs Temp Pulse Pulse Pulse Resp BP BP 08/14/20 06:48 97.1 F L 60 18 156/60 H 08/14/20 03:18 64 18 08/14/20 03:15 96.8 F L 62 20 154/91 H 08/14/20 00:19 84 08/14/20 00:16 62 18 08/13/20 22:25 97.7 F 80 20 126/76 08/13/20 21:53 64 19 142/105 H 08/13/20 21:40 64 19 142/105 H 08/13/20 21:02 61 13 173/139 H 08/13/20 20:30 62 12 173/115 H 08/13/20 20:01 60 22 155/88 H Pulse Ox 08/14/20 06:48 96 08/14/20 03:18 96 08/14/20 03:15 96 08/14/20 00:19 08/14/20 00:16 97 08/13/20 22:25 95 08/13/20 21:53 100 08/13/20 21:40 100 08/13/20 21:02 100 08/13/20 20:30 100 08/13/20 20:01 100 PG Care Time/CCT Total # of Minutes Spent Total Time Spent with Patient: Total time spent is greater than 50% in coordination of care (as documented) at patient's floor/unit and/or counseling patient: Coding Level of Care Code 38059 Subseq Hosp Care Lvl 3 Diagnoses MEDRANO (dyspnea on exertion) R06.00 Chest pain R07.9 Chest pain type: unspecified Diabetes mellitus type 2 in obese E11.69; E66.9 AF (paroxysmal atrial fibrillation) I48.0 Depression F33.9 Active/Remission status: remission status unspecified Depression Type: major depressive disorder Major depression recurrence: recurrent Hyperlipidemia E78.5 Hyperlipidemia type: unspecified Hypertension I10 Hypertension type: essential hypertension Obstructive sleep apnea G47.33 (1) Depression Active/Remission status: remission status unspecified Depression Type: major depressive disorder Major depression recurrence: recurrent Qualified Code(s): F33.9 - Major depressive disorder, recurrent, unspecified (2) Hyperlipidemia Hyperlipidemia type: unspecified Qualified Code(s): E78.5 - Hyperlipidemia, unspecified (3) Chest pain Chest pain type: unspecified Qualified Code(s): R07.9 - Chest pain, unspecified (4) Hypertension Hypertension type: essential hypertension Qualified Code(s): I10 - Essential (primary) hypertension
[2020-08-14] MEDS: APIXABAN 2.5 MG TAB PO SCH ×2 (08:26→20:31)
[2020-08-14] MEDS: PANTOprazole 40 MG TAB PO SCH ×2 (08:26→20:31)
[2020-08-14] MEDS: ESCITALOPRAM OXALATE 10 MG TAB PO SCH (08:26)
--- NOTE | 2020-08-14 08:26 | XRay Report ---
XR chest 1V portable HISTORY: 74 years-old Female SOB acute shortness of breath COMPARISON: Chest radiograph 08/13/2020 TECHNIQUE: Portable AP view of the chest FINDINGS: Cardiomegaly. Prior median sternotomy. Left subclavian pacer/AICD. No pneumothorax, large pleural eff usion or overt pulmonary edema. Minimal bibasilar densities suggest atelectasis. Degenerative changes of the shoulders and spine. IMPRESSION: Cardiomegaly without acute process. ACT 112: Negative or not required by law. The above report was generated using voice recognition software. It may contain grammatical, syntax o r spelling errors. Electronically signed by: Sumeet Vail M.D. 08/14/2020 8:25 AM
[2020-08-14] MEDS: METOPROLOL SUCC 25MG EXT REL TAB PO SCH (08:27)
[2020-08-14] MEDS: ACETAMINOPHEN 500 MG TAB PO PRN (08:28)
[2020-08-14] MEDS: INSULIN ASPART 100 UNITS/ML 3 ML PEN SC SCH ×4 (08:28→20:30)
[2020-08-14] MEDS: INSULIN GLARGINE SOLOSTAR 100 UNITS/ML 3 ML PEN SC SCH ×2 (08:29→20:32)
--- NOTE | 2020-08-14 09:10 | Electrocardiogram Report ---
Test Reason : Blood Pressure : / mmHG Vent. Rate : 060 BPM Atrial Rate : 234 BPM P-R Int : 000 ms QRS Dur : 152 ms QT Int : 498 ms P-R-T Axes : 000 228 000 degrees QTc Int : 498 ms Ventricular-paced rhythm Atrial fibrillation Abnormal ECG When compared with ECG of 23-NOV-2019 12:18, Vent. rate has decreased BY 11 BPM Atrial fibrillation now present Atrial-paced rhythm no longer present Confirmed by Joel Garcia ([id number]) on 08/14/2020 9:09:27 AM Referred By: REFERRED SELF Confirmed By:Joel Garcia
[2020-08-14 09:15] LABS: Estimated Average Glucose 194 mg/dl; Hemoglobin A1C 8.4 % (4.5-5.6)
[2020-08-14] MEDS: ONDANSETRON INJ 2 MG/ML 2 ML VIAL IV PRN ×2 (09:32→18:12)
--- NOTE | 2020-08-14 16:04 | CT Scan Report ---
ABDOMEN AND PELVIS CT WITH ORAL CONTRAST CT DOSE: 1144.61 mGycm HISTORY: Acute right upper quadrant abdominal pain eval ruq pain, and hx of endometrial thickening TECHNIQUE: Multiaxial CT images of the abdomen and pelvis were performed following the use of oral co ntrast. A dose lowering technique was utilized adhering to the principles of ALARA. COMPARISON STUDY: CT abdomen and pelvis 12/19/2016 FINDINGS: Cardiomegaly. Prior median sternotomy with pacer/AICD. Mural fibrofatty changes with calcif ications of the left ventricular apex suggest prior myocardial infarction. Mild subsegmental bibasila r opacities suggest atelectasis/scarring. No pneumatosis or pneumoperitoneum. Cholecystectomy. The unenhanced spleen, pancreas and adrenal glands are unremarkable. Suggested mild hepatic steatosis. Cortical thinning of the bilateral kidneys. Suggested renal sinus cysts of the kid neys. Probable cyst of the superior pole left kidney, 2.9 cm. No urolith or obstructive uropathy. Dec ompressed urinary bladder. IUD of the mid uterus. No adnexal mass lesion. Calcified plaque of the abd ominal aorta without aneurysm. No adenopathy. No bowel obstruction or bowel wall thickening. Nonvisualization of the appendix. No secondary signs t o suggest acute appendicitis. No ascites or mesenteric inflammation. Unremarkable soft tissues. Degen erative changes of the spine, pelvis and hips. IMPRESSION: 1. No acute intra-abdominal or intrapelvic abnormality. 2. No bowel obstruction or bowel wall thickening. 3. IUD of the mid uterus. 4. Cholecystectomy. 5. Additional findings as above. ACT 112: Negative or not required by law. The above report was generated using voice recognition software. It may contain grammatical, syntax o r spelling errors. Electronically signed by: Sumeet Vail M.D. 08/14/2020 4:03 PM
[2020-08-14] MEDS: FUROSEMIDE 20 MG in SYRINGE 0 ML IV ONE ×2 (17:44→17:46)
[2020-08-14] MEDS: ATORVASTATIN 40 MG TAB PO SCH (20:31)
--- NOTE | 2020-08-14 21:33 | Billing Data ---
Date of Service August 14, 2020 Coding Level of Care Code 75609 Initial Inpt Care Lvl 3
--- NOTE | 2020-08-15 08:29 | Hospitalist Progress Note ---
Date of Service August 15, 2020 Assessment & Plan (1) MEDRANO (dyspnea on exertion): Patient is a 74 year old female with PMHx Paroxysmal Afib, GERD, CKD, HTN, HLD, DIAMOND, DM2, HFrEF EF 25-30%, S/P Biventricular ICD that presented from home secondary to dizziness and worsening SOB at home. Acute on chronic systolic heart failure -Last Echo 12/23/19 with EF 25-30% -Pro-BNP elevated at 6630. -Patient chronically is on oxygen and will need to have her home noninvasive pos itive pressure ventilation reevaluated to be sure it is functioning correctly Wt is about 218 dry weight is around 212 Abdominal Pain -Suspect pain is more secondary to worsening of GERD -Will increase home Omeprazole from 20mg QD to 40mg BID acutely CT abdomen pelvis with oral contrast due to CKD 4 shows no acute intra abdominal pathology, CKD Stage 4 -Base Cr 1.8-2 -Stable on admission, continue to monitor with initiation of diuretic Paroxysmal Afib -rate controlled on metoprolol -Continues low dose Eliquis Elevated Troponin -Chronically elevated -Notably actually lower than a majority of prior admissions at 0.048, no chest pain or pressure. -No plans on repeat testing unless patient develops new onset chest pain, pressure. Ischemic Cardiomyopathy S/P ICD -continue metoprolol Hypertension -Continue Metoprolol -Had been on Lisinopril in the past, but was stopped due to orthostasis/SUSSY DM2 -SSI and Basal bolus BID Depression -Continue Lexapro HLD -Continue atorvastatin DIAMOND -Diagnosed in the past via sleep study per patient, though has not been wearing CPAP Patient feels she is improved with CPAP while in the hospital will have home DME company evaluate her machine Dispo: Med/Surg telemetry for fluid balance monitoring, rhythm monitoring FEN: HH low Na diet DVT: Eliquis BID Code: Full (2) Chest pain: (3) Diabetes mellitus type 2 in obese: (4) AF (paroxysmal atrial fibrillation): (5) Depression: (6) Hyperlipidemia: (7) Hypertension: (8) Obstructive sleep apnea: Admission and Anticipated Discharge Date Admission Date: August 14, 2020 Subjective Patient feels better improving every day. Less shortness of breath still with persistent lower extremity edema her dry weight is going down again given negative fluid balance. She is seen by physical therapy on 08/15/2020 and felt a safe candidate to go home we will have occupational therapy evaluate her. Case management is also arranged for home health to see the patient later this week Review of Systems Review of Systems: Mild distress and fatigue no headache, blurry or double vision no speech or swallowing issues no chest pain, pressure or palpitations Improving shortness of breath, cough or wheezes Right upper quadrant abdominal pain, without nausea or vomiting no dysuria, hematuria or frequency no focal joint pain persistent chronic lower extremity swelling no back pain, CVA tenderness or radicular pain no bruising, bleeding or rashes no focal signs of weakness or numbness or altered sensation no complaints of anxiety or depression.. Physical Exam Physical Exam: The patient appeared well nourished and she is morbidly obese with BMI 41 Vital signs as documented. Head exam is normocephalic atraumatic no scleral icterus Neck is without JVD, thyromegaly, or carotid bruits. Lungs are diminished at the bases, no focal loss of breath sounds Cardiac exam, Rhythm is regular.. No murmurs, rubs or gallops. Abdominal exam reveals normal bowel sounds, soft, tender on right cannot say if true RUQ tenderness or ASIS tenderness Extremities are mildly edematous and both pedal pulses are present Neurologic exam is alert and oriented, no focal loss of strength or sensation Skin is without bruises or rashes Psychologically is without concerns for anxiety or depression Results & Data Results & Data ([facility]) Vital Signs (Past 12 Hours) Vital Signs Temp Pulse Pulse Resp BP BP Pulse Ox 08/15/20 07:22 60 08/15/20 07:13 97.3 F L 61 18 125/72 90 08/15/20 03:30 96.4 F L 60 20 124/82 90 08/15/20 00:00 85 08/14/20 23:38 97.5 F L 61 18 146/97 H 100 08/14/20 21:00 60 20 96 PG Care Time/CCT Total # of Minutes Spent Total Time Spent with Patient: Total time spent is greater than 50% in coordination of care (as documented) at patient's floor/unit and/or counseling patient: Coding Level of Care Code 06778 Subseq Hosp Care Lvl 2 Diagnoses MEDRANO (dyspnea on exertion) R06.00 Chest pain R07.9 Chest pain type: unspecified Diabetes mellitus type 2 in obese E11.69; E66.9 AF (paroxysmal atrial fibrillation) I48.0 Depression F33.9 Active/Remission status: remission status unspecified Depression Type: major depressive disorder Major depression recurrence: recurrent Hyperlipidemia E78.5 Hyperlipidemia type: unspecified Hypertension I10 Hypertension type: essential hypertension Obstructive sleep apnea G47.33 (1) Depression Active/Remission status: remission status unspecified Depression Type: major depressive disorder Major depression recurrence: recurrent Qualified Code(s): F33.9 - Major depressive disorder, recurrent, unspecified (2) Hyperlipidemia Hyperlipidemia type: unspecified Qualified Code(s): E78.5 - Hyperlipidemia, unspecified (3) Chest pain Chest pain type: unspecified Qualified Code(s): R07.9 - Chest pain, unspecified (4) Hypertension Hypertension type: essential hypertension Qualified Code(s): I10 - Essential (primary) hypertension
[2020-08-15] MEDS: FUROSEMIDE 40 MG TAB PO SCH (09:14)
[2020-08-15] MEDS: APIXABAN 2.5 MG TAB PO SCH ×2 (09:14→20:29)
[2020-08-15] MEDS: METOPROLOL SUCC 25MG EXT REL TAB PO SCH (09:14)
[2020-08-15] MEDS: INSULIN GLARGINE SOLOSTAR 100 UNITS/ML 3 ML PEN SC SCH ×2 (09:15→20:30)
[2020-08-15] MEDS: ESCITALOPRAM OXALATE 10 MG TAB PO SCH (09:15)
[2020-08-15] MEDS: PANTOprazole 40 MG TAB PO SCH ×2 (09:15→20:30)
[2020-08-15] MEDS: INSULIN ASPART 100 UNITS/ML 3 ML PEN SC SCH ×4 (09:16→20:30)
[2020-08-15 09:19] LABS: Hematocrit (blood only) 41.1 % (37-47); Hemoglobin 13.4 g/dL (12.0-16.0); Mean Corpuscular Hgb Conc 32.6 g/dL (32-36); Platelet Count 165 K/uL (130-400); RDW Coefficient of Variation 13.8 % (11.5-14.5); RDW Standard Deviation 45.2 fL (36.4-46.3); Red Blood Count 4.62 M/uL (4.2-5.4); White Blood Count 7.51 K/uL (4.8-10.8)
[2020-08-15] MEDS: ACETAMINOPHEN 500 MG TAB PO PRN (09:20)
[2020-08-15 09:45] LABS: Albumin Level 3.3 gm/dl (3.4-5.0); BUN Creatinine Ratio 14.2 (10-20); Calcium 9.2 mg/dl (8.5-10.1); Creatinine Clr Calc Pharmacy 23.4 ml/min; Est GFR (African American) 24.8; Est GFR (Non-African American) 21.4; Potassium 4.1 mmol/L (3.5-5.1)
[2020-08-15 09:48] LABS: Albumin Globulin Ratio 1.1 (0.9-2); Total Protein 6.3 gm/dl (6.4-8.2)
[2020-08-15] MEDS: ATORVASTATIN 40 MG TAB PO SCH (20:29)
[2020-08-16] MEDS: INSULIN ASPART 100 UNITS/ML 3 ML PEN SC SCH ×2 (08:47→13:33)
[2020-08-16] MEDS: METOPROLOL SUCC 25MG EXT REL TAB PO SCH (08:49)
[2020-08-16] MEDS: FUROSEMIDE 40 MG TAB PO SCH (08:49)
[2020-08-16] MEDS: ESCITALOPRAM OXALATE 10 MG TAB PO SCH (08:49)
[2020-08-16] MEDS: APIXABAN 2.5 MG TAB PO SCH (08:50)
[2020-08-16] MEDS: INSULIN GLARGINE SOLOSTAR 100 UNITS/ML 3 ML PEN SC SCH (08:50)
[2020-08-16] MEDS: PANTOprazole 40 MG TAB PO SCH (08:50)
[2020-08-16] MEDS: ACETAMINOPHEN 500 MG TAB PO PRN (11:51)
--- NOTE | 2020-08-16 18:01 | Discharge Summary ---
Date of Service August 16, 2020 Admission HPI Per Admitting Provider Patient is a 74 year old female with PMHx Paroxysmal Afib, GERD, CKD, HTN, HLD, DIAMOND, DM2, HFrEF EF 25-30%, S/P Biventricular ICD that presented from home secondary to dizziness and worsening SOB at home. She notes that she woke up this morning and was feeling dizzy with a headache which seemed to worsen when she went to stand up. She states that she went back to sleep and when her family attempted to arouse her she was slow to wake and they were concerned that she would require evaluation. She notes that recently she has been having on and off chest pain for the past 1 month primarily with shortness of breath. She notes she is to use 2L oxygen by ID PRN, however, her machine has not been working for the better part of 1 year. She also notes upper abdominal pain b/l that comes and goes. She states that pain was last noted the day prior when she also experienced nausea. She notes in addition to the pain and nausea she has had frequent belching. She states currently that she has a slight headache, urinary incontinence which is chronic, and shortness of breath though improved. She denies any chest pain, pressure, fever, chills, diarrhea, dysuria. She states that she was instructed to start taking her lasix again today due to swelling in her legs, though she has not done so yet. She is unsure of her salt intake and states that it varies, though she knows she is supposed to keep it at a minimal. Med Hx: CKD, s/p ICD, HTN, GERD, HLD, DIAMOND, DM2, HFrEF Surg Hx: ICD placement 10 years ago, Appendectomy, x3, Cholecystectomy, Aortic valve replacement porcine 2002, CABG PACHECO to LAD for LV hypokinesis 2002 Soc Hx: No tobacco, alcohol, or illicit drug usage. Principal Diagnosis acute on chronic systolic heart failure afib [id number] chronically elevated troponin Discharge Exam The patient appeared well nourished and normally developed. Vital signs as documented. Head exam is normocephalic atraumatic no scleral icterus Neck is without JVD, thyromegaly, or carotid bruits. Lungs are clear to auscultation, no focal loss of breath sounds Cardiac exam, Rhythm is regular.. No murmurs, rubs or gallops. Abdominal exam reveals normal bowel sounds, soft non tender, no masses Extremities are nonedematous and both pedal pulses are present Neurologic exam is alert and oriented, no focal loss of strength or sensation Skin is without bruises or rashes Psychologically is without concerns for anxiety or depression Discharge Data Allergies Allergy/AdvReac Type Severity Reaction Status Date / Time aspirin Allergy Intermediate HIVES Verified 08/13/20 17:06 Iodinated Contrast Media Allergy Intermediate HIVES - Verified 08/13/20 17:06 MRI DYE levofloxacin Allergy Intermediate HIVES, Verified 08/13/20 17:06 VEIN IRRITATION W/IV LEVAQUIN erythromycin base Allergy Unknown UNKNOWN Verified 08/13/20 17:06 Consultations 08/13/20 18:53 ED Decision to Admit Stat Ordered Studies 08/13/20 16:07 CT head/brain wo con Stat 08/14/20 12:59 CT abd pelvis oral con only Routine Hospital Course (1) MEDARNO (dyspnea on exertion): Patient is a 74 year old female with PMHx Paroxysmal Afib, GERD, CKD, HTN, HLD, DIAMOND, DM2, HFrEF EF 25-30%, S/P Biventricular ICD that presented from home secondary to dizziness and worsening SOB at home. Acute on chronic systolic heart failure -Last Echo 12/23/19 with EF 25-30% -Pro-BNP elevated at 6630. -Patient chronically is on oxygen and will need to have her home noninvasive positive pressure ventilation reevaluated to be sure it is functioning correctly Wt inear her dry weight , around 212 Abdominal Pain -Suspect pain is more secondary to worsening of GERD -will be on bid protonix for one month then return to omeprazole it has resolved CT abdomen pelvis with oral contrast due to CKD 4 shows no acute intra abdominal pathology, CKD Stage 4 -Base Cr 1.8-2 -Stable on admission, continue to monitor with initiation of diuretic Paroxysmal Afib -rate controlled on metoprolol -Continues low dose Eliquis Elevated Troponin -Chronically elevated -Notably actually lower than a majority of prior admissions at 0.048, no chest pain or pressure. -No plans on repeat testing Ischemic Cardiomyopathy S/P ICD -continue metoprolol Hypertension -Continue Metoprolol -Had been on Lisinopril in the past, but was stopped due to orthostasis/SUSSY DM2 -Resume home regiment Depression -Continue Lexapro HLD -Continue atorvastatin DIAMOND -Diagnosed in the past via sleep study per patient, though has not been wearing CPAP Patient feels she is improved with CPAP while in the hospital will have home DME company evaluate her machine she is currently wearing CPAP at home Code: Full (2) Chest pain: (3) Diabetes mellitus type 2 in obese: (4) AF (paroxysmal atrial fibrillation): (5) Depression: (6) Hyperlipidemia: (7) Hypertension: (8) Obstructive sleep apnea: Total Time Total Time Spent Total Time Spent (In Minutes): It required greater than 30 minutes to prepare this patient for discharge Discharge Plan Discharge Items Patient Disposition: Home - Home Health Services Reason For Visit: DYSPNEA,ABDOMINAL PAIN Discharge Diagnosis: extra fluid in lungs from heart failure Condition on Discharge: Good Activity: Resume your previous activity Non-emergency contact: Primary Care Provider and Photogrammetric Tech Call non-emergency contact if: you have any medication questions and your symptoms worsen Follow-up/Referrals: Aimee Crook CRNP [Primary Care Provider] - 08/24/20 10:30 am Diet: Carb Consistent or DM2 and Low Sodium (2gm) Addtl Attending Provider Instructions: Call 911 and go to the Emergency Room if: * You have tightness or pain in your chest that does not go away with rest or Nitroglycerin * You are very short of breath even with rest Call your doctor if any of the following symptoms or problems start or get worse: * Shortness of breath or difficulty breathing * Wake up at night short of breath * Chest pain * Cough * Swelling of your hands, fee, or legs * More fatigued or tired with your normal activity * Palpitations - sudden fast heart beats WEIGHT * Weigh yourself every morning after using the bathroom. * Use the same scale. * Wear the same amount of clothing. * Write your weight down on your chart. * Call your doctor if you gain more than 2-3 pounds in 1-2 days. MEDICATIONS * Use this discharge instruction sheet for instructions. * Take your medications at the time your doctor ordered. * Do not skip a dose of your medicines. * If you miss a dose of medicine, take as soon as possible, but DO NOT DOUBLE A DOSE. * Read your medicine information when you get home. * Know all of the side effects of your medicine. * Call your doctor's office if you have any side effects. * Be sure all of your doctors know what medicine and herbs you take (including cold, flu, and herbal medicine). * Pain Medicine: If you do not get relief from your pain, please call your doctor for help. Take the following with you to your follow-up doctor appointments: * Weight Chart * Medication List * List of questions Low salt diet Be sure to wear your sleep apnea device at home once you are finished with your pantoprazole return to your omeprazole Pending Studies at Discharge: No Stand-Alone Forms: My [facility], Smoking Cessation Medications and DC Order Prescriptions: New pantoprazole 40 mg Tablet,Delayed Release (Dr/Ec) 40 mg PO BID Qty: 60 RF: 0 Continued (DME) Accu-Chek Imani Plus test strp Strip See Rx Instructions .ROUTE .MEDSUPPLY Qty: 100 RF: 3 (DME) blood-glucose meter [Accu-Chek Imani Plus Meter] Misc See Rx Instructions .ROUTE .MEDSUPPLY Qty: 1 RF: 0 (DME) lancing device Misc See Rx Instructions .ROUTE .MEDSUPPLY Qty: 1 RF: 0 (DME) lancets [Easy Touch Lancets] 30 gauge misc See Rx Instructions .ROUTE .MEDSUPPLY Qty: 200 RF: 5 metoprolol succinate 25 mg tablet extended release 24 hr 25 mg PO QAM Qty: 90 RF: 3 Lantus Solostar U-100 Insulin 100 unit/mL (3 mL) insulin pen 5 unit SUBCUT HS Qty: 15 RF: 0 Eliquis 2.5 mg tablet 2.5 mg PO BID Qty: 60 RF: 11 ascorbate calcium (vitamin C) 500 mg tablet 500 mg PO QAM RF: 0 betamethasone dipropionate 0.05 % ointment 1 applic topical BID Qty: 45 RF: 0 nystatin 100,000 unit/gram powder 1 applic topical BID Qty: 60 RF: 0 Cetaphil Cream 1 applic TOPICAL BID RF: 0 cholecalciferol (vitamin D3) [Vitamin D3] 25 mcg (1,000 unit) Tablet 25 mcg PO HS RF: 0 furosemide [Lasix] 40 mg tablet 40 mg PO QAM RF: 0 atorvastatin 40 mg tablet 40 mg PO HS RF: 0 escitalopram oxalate 10 mg tablet 10 mg PO QAM RF: 0 Discontinued omeprazole 20 mg capsule,delayed release(DR/EC) 20 mg PO QAM RF: 0 Discharge Orders: Discharge Order (Routine); Ordered 08/16/20 Ordered By: Mitchel Whalen/Other Patient Handouts: Managing Type 2 Diabetes, Managing Diabetes: The A1C Test Admission Data Admit Date/Time: 08/14/20 17:05 Attending Provider: Mitchel Montejo Admit Provider: Mitchel Ledezma Primary Care Provider: Aimee Crook Other Providers: José Luis Bernstein Other Interventions: Discharge Summary Assessment (RN) Last Done: 08/16/20 14:07 Coding Level of Care Code D/C Day Management >30 mins Diagnoses MEDRANO (dyspnea on exertion) R06.00 Chest pain R07.9 Chest pain type: unspecified Diabetes mellitus type 2 in obese E11.69; E66.9 AF (paroxysmal atrial fibrillation) I48.0 Depression F33.9 Depression Type: major depressive disorder Major depression recurrence: recurrent Active/Remission status: remission status unspecified Hyperlipidemia E78.5 Hyperlipidemia type: unspecified Hypertension I10 Hypertension type: essential hypertension Obstructive sleep apnea G47.33
== END 2020-08-16 15:00 | disposition home health service (06) ==
LOC: 2N 15:54 → ED 15:54 → SUATTDRO 21:15 → 2N 21:53

== ENCOUNTER 2020-11-12 07:49 | Inpatient (IN) ==
[2020-11-12] MEDS ORDERED: SODIUM CHLORIDE 0.9% 500 ML IV ONE (08:06)
[2020-11-12] MEDS ORDERED: MoRPHine SULFATE 4 MG/ML 1 ML CARP\\VIAL IV STA ×2 (08:06→09:47)
--- NOTE | 2020-11-12 08:13 | Emergency Department Note ---
Impression & Plan Abdominal pain, Ileitis, Syncope, CKD (chronic kidney disease), Hyperglycemia ED Provider Note NAME: NINOSKA LANGFORD AGE: 75 SEX: F : 1945 ARRIVES VIA: Walk-In INFORMANT: Patient ED PROVIDER(S): Alfonzo Montague DO CHIEF COMPLAINT: abdominal pain HPI: Patient is a 75-year-old female who presents to the ER for severe abdominal pain. This started around 4 AM this morning in the right mid abdomen. It radiates throughout her whole belly. She admits to nausea and vomiting. Last bowel movement was within the past 24 hours but no diarrhea. No dysuria, urgency, or frequency. No other exacerbating or remitting factors. She notes that she cannot eat or drink anything. Pain is worse on palpation of her belly. ROS: See above HPI for pertinent positives & negatives. A total of 10 systems reviewed and were otherwise negative. PAST MEDICAL HISTORY:See Below PAST SURGICAL HISTORY:See Below FAMILY HISTORY:See Below SOCIAL HISTORY:See Below HOME MEDICATIONS:See Below ALLERGIES:See Below VITALS:See Below PHYSICAL EXAMINATION: GENERAL: Sitting up in bed, alert, well appearing, well nourished, no distress, non-toxic EYE EXAM: normal conjunctiva. OROPHARYNX: no exudate, no erythema, lips, buccal mucosa, and tongue normal and mucous membranes are moist NECK: supple, no nuchal rigidity, no adenopathy, non-tender LUNGS: Clear to auscultation. Normal chest wall mechanics HEART: no murmurs, S1 normal and S2 normal ABDOMEN: abdomen soft, tender in right mid abdomen, normo-active bowel sounds, no masses, no rebound or guarding. UPPER EXTREMITIES: upper extremities are grossly normal. LOWER EXTREMITIES: No pitting edema. NEURO EXAM: Normal sensorium, cranial nerves II-XII grossly intact, normal speech, no gross weakness of arms, no gross weakness of legs. MEDICAL DECISION MAKING: Patient is a 75-year-old female who presents the ER for abdominal pain which started earlier today. IV established blood work is obtained. Labs show no significant leukocytosis or anemia. BMP with slightly elevated creatinine at 2.2 up from 1.8. Glucose was elevated to 40. LFTs were unremarkable. T bili slightly elevated 1.3. Lipase slightly elevated at 424. Covid was negative. CT abdomen pelvis shows ileitis. She was given 2 rounds of narcotics fluids and Zofran. She was updated bedside. Discussed with the hospitalist for persistent pain. Lactate was added on and was negative at 1.6. Unable to perform with IV contrast secondary to allergy and creatinine. On NOAC. Triage Nursing notes reviewed. Limited review of prior medical records performed Vital Signs: reviewed and remarkable for hypotension Differential diagnosis: Differential diagnoses includes but is not limited to gastritis, peptic ulcer disease, GERD, gallbladder disease, pancreatitis, small bowel obstruction, acute coronary syndrome, pericarditis, ischemic bowel, irritable bowel disease, irritable bowel syndrome, appendicitis, diverticulitis, malignancy, hernia, urinary tract infection, torsion, /ectopic (if female), perforation, trauma, infectious. ER treatment provided: See below Diagnostics interpreted by me: ECG: Ventricularly paced rate is 67 Right axis QTC 524 Poor baseline Cardiac Monitoring: An order was placed for continuous cardiac monitoring. The monitor shows a rate of 62 with sinus rhythm. Laboratory studies: As stated above and show below. 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) IUD surveillance Mild acid reflux Obstructive sleep apnea Olecranon bursitis of right elbow Post-menopausal bleeding Repair of aortic valve with tissue graft (11/23/10) Urge incontinence of urine Vaginal bleeding Surgical History H/O aortic valve replacement 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 History of aortic aneurysm repair Hx of CABG CABG x1 (PACHECO TO LAD for LV hypokinesis-not CAD-- Done at the time of AVR and aortic root graft) 2002 Family History Mother Diabetes Myocardial infarction Sister Diabetes Son Hypertension Denies family history of Ovarian cancer Prostate cancer Breast cancer Lung cancer Colorectal cancer Cancer Social History Smoking Status: Never smoker Second Hand Exposure: No; Hx Alcohol Use: No Hx Substance Use: No Preferred Language: [place] Communication Ability: Effective Tube Depatcher Required: No Beliefs That Will Affect Care: None marital status: / Current Living Situation: Family current occupational status: disabled Feels Safe at Home: Yes caffeine: Yes (soda) Dental Care, Regularly: No Physical Activity Frequency: Daily Seatbelt Use: sometimes Sunscreen Use: No Assistive Devices: Walker Allergies Allergies Allergy/AdvReac Type Severity Reaction Status Date / Time aspirin Allergy Intermediate HIVES Verified 11/12/20 08:54 Iodinated Contrast Media Allergy Intermediate HIVES - Verified 11/12/20 08:54 MRI DYE levofloxacin Allergy Intermediate HIVES, Verified 11/12/20 08:54 VEIN IRRITATION W/IV LEVAQUIN erythromycin base Allergy Unknown UNKNOWN Verified 11/12/20 08:54 Home Meds Home Medications Medication Instructions Recorded Confirmed cholecalciferol (vitamin D3) 25 mcg PO QAM 08/13/20 11/12/20 [Vitamin D3] Previous Rx's Medication Instructions Recorded lancing device #1 ea 07/30/19 nystatin 100,000 unit/gram topical 1 applic TOPICAL BID #60 g 01/24/20 powder metoprolol succinate 25 mg 25 mg PO QAM #90 tab 02/24/20 tablet,extended release 24 hr insulin glargine 100 unit/mL (3 5 unit SUBCUT HS #15 ml 06/21/20 mL) subcutaneous pen apixaban 2.5 mg tablet 2.5 mg PO BID #60 tab 07/14/20 furosemide 40 mg tablet 40 mg PO .COMPLEX #180 tab 08/23/20 atorvastatin 40 mg tablet 40 mg PO HS #90 tab 09/11/20 blood sugar diagnostic #100 ea 09/11/20 blood-glucose meter #1 ea 09/11/20 escitalopram oxalate 10 mg tablet 10 mg PO QAM #90 tab 09/11/20 lancets #102 ea 09/11/20 lancets 30 gauge #200 ea 09/11/20 pantoprazole 40 mg tablet,delayed 40 mg PO BID #60 tab 09/19/20 release Results & Data (ED) Vital Signs Vital Signs - 24 hr 11/12/20 07:50 11/12/20 08:04 11/12/20 09:00 Temperature 37.2 C Temperature Source Temporal Artery Scan Pulse Rate 68 60 61 Pulse Rate from SpO2 Sensor Respiratory Rate 18 18 26 H Respiratory Effort / Characteristics Non-Labored Spontaneous Respiratory Depth Normal Respiratory Pattern Regular Blood Pressure 92/53 L 152/102 H 136/72 Blood Pressure Mean 66 118 93 Blood Pressure Position Sitting Pulse Oximetry 98 96 95 Oxygen Delivery Method Room Air Oxygen Flow Rate Sepsis Recent Fever Within 48 Hours No Sepsis New/Unexplained Change in Mental Status N/A Sepsis Action Taken by Nursing No Action Required 11/12/20 09:30 11/12/20 10:01 11/12/20 10:30 Temperature Temperature Source Pulse Rate 61 60 60 Pulse Rate from SpO2 Sensor 60 Respiratory Rate 31 H 23 17 Respiratory Effort / Characteristics Respiratory Depth Respiratory Pattern Blood Pressure 128/74 124/73 121/67 Blood Pressure Mean 92 90 85 Blood Pressure Position Pulse Oximetry 96 97 Oxygen Delivery Method Oxygen Flow Rate Sepsis Recent Fever Within 48 Hours Sepsis New/Unexplained Change in Mental Status Sepsis Action Taken by Nursing 11/12/20 11:01 11/12/20 11:30 Temperature Temperature Source Pulse Rate 60 60 Pulse Rate from SpO2 Sensor 60 60 Respiratory Rate 20 20 Respiratory Effort / Characteristics Respiratory Depth Respiratory Pattern Blood Pressure 116/56 L 131/73 Blood Pressure Mean 76 92 Blood Pressure Position Pulse Oximetry 99 100 Oxygen Delivery Method Nasal Cannula Nasal Cannula Oxygen Flow Rate 2 2 Sepsis Recent Fever Within 48 Hours Sepsis New/Unexplained Change in Mental Status Sepsis Action Taken by Nursing Laboratory Data Result diagrams: 11/12/20 08:40 11/12/20 08:40 Lab Results 11/12/20 11/12/20 11/12/20 Range/Units 08:40 08:40 08:45 WBC 10.59 (4.8-10.8) K/uL RBC 5.13 (4.2-5.4) M/uL Hgb 15.6 (12.0-16.0) g/dL POC Hgb 16.0 (12.0-16.0) g/dl Hct 46.0 (37-47) % POC Hct 47 (37-47) % MCV 89.7 (80-100) fL MCH 30.4 (25-34) pg MCHC 33.9 (32-36) g/dL RDW Std Deviation 45.2 (36.4-46.3) fL RDW Coeff of Chriss 13.7 (11.5-14.5) % Plt Count 190 (130-400) K/uL MPV 10.3 (7.4-10.4) fL Immature Gran % (Auto) 0.2 % Neut % (Auto) 82.8 % Lymph % (Auto) 11.0 % [place] % (Auto) 5.0 % Eos % (Auto) 0.8 % Baso % (Auto) 0.2 % Neut # (Auto) 8.77 H (1.4-6.5) K/uL Lymph # (Auto) 1.16 L (1.2-3.4) K/uL [place] # (Auto) 0.53 (0.11-0.59) K/uL Eos # (Auto) 0.09 (0-0.5) K/uL Baso # (Auto) 0.02 (0-0.2) K/uL Immature Gran # (Auto) 0.02 (0.00-0.02) K/uL POC Sodium 141 (135-144) mmol/L Sodium 138 (136-145) mmol/L POC Potassium 4.1 (3.3-5.0) mmol/L Potassium 4.1 (3.5-5.1) mmol/L POC Chloride 97 L (101-112) mmol/L Chloride 101 (98-107) mmol/L Carbon Dioxide 30 (21-32) mmol/L POC Total CO2 30 (24-31) mmol/L Anion Gap 7.0 (3-11) POC Anion Gap 18.0 (16-25) mmol/L POC BUN 34 H (7-18) mg/dl BUN 33 H (7-18) mg/dl Creatinine 2.26 H (0.6-1.2) mg/dl POC Creatinine 2.4 H (0.6-1.3) mg/dl Est Cr Clr Drug Dosing 22.1 ml/min Est GFR ( Amer) 23.5 ml/min Est GFR (Non-Af Amer) 20.3 ml/min BUN/Creatinine Ratio 14.7 (10-20) Glucose 223 H (70-99) mg/dl POC Glucose (other) 243 H (70-99) mg/dl Lactate (0.4-2.0) mmol/L Calcium 10.0 (8.5-10.1) mg/dl POC Ioniz Calcium Yelena 1.21 (1.12-1.32) mmol/l Total Bilirubin 1.3 H (0.2-1) mg/dl AST 20 (15-37) U/L ALT 23 (12-78) U/L Alkaline Phosphatase 155 H (45-117) U/L Total Protein 7.4 (6.4-8.2) gm/dl Albumin 3.9 (3.4-5.0) gm/dl Globulin 3.5 (2.5-4.0) gm/dl Albumin/Globulin Ratio 1.1 (0.9-2) Lipase 424 H (73-393) U/L COVID-19 Eval Order SARS-CoV-2 (PCR) (Negative) 11/12/20 11/12/20 11/12/20 Range/Units 10:33 10:33 10:43 WBC (4.8-10.8) K/uL RBC (4.2-5.4) M/uL Hgb (12.0-16.0) g/dL POC Hgb (12.0-16.0) g/dl Hct (37-47) % POC Hct (37-47) % MCV (80-100) fL MCH (25-34) pg MCHC (32-36) g/dL RDW Std Deviation (36.4-46.3) fL RDW Coeff of Chriss (11.5-14.5) % Plt Count (130-400) K/uL MPV (7.4-10.4) fL Immature Gran % (Auto) % Neut % (Auto) % Lymph % (Auto) % [place] % (Auto) % Eos % (Auto) % Baso % (Auto) % Neut # (Auto) (1.4-6.5) K/uL Lymph # (Auto) (1.2-3.4) K/uL [place] # (Auto) (0.11-0.59) K/uL Eos # (Auto) (0-0.5) K/uL Baso # (Auto) (0-0.2) K/uL Immature Gran # (Auto) (0.00-0.02) K/uL POC Sodium (135-144) mmol/L Sodium (136-145) mmol/L POC Potassium (3.3-5.0) mmol/L Potassium (3.5-5.1) mmol/L POC Chloride (101-112) mmol/L Chloride (98-107) mmol/L Carbon Dioxide (21-32) mmol/L POC Total CO2 (24-31) mmol/L Anion Gap (3-11) POC Anion Gap (16-25) mmol/L POC BUN (7-18) mg/dl BUN (7-18) mg/dl Creatinine (0.6-1.2) mg/dl POC Creatinine (0.6-1.3) mg/dl Est Cr Clr Drug Dosing ml/min Est GFR ( Amer) ml/min Est GFR (Non-Af Amer) ml/min BUN/Creatinine Ratio (10-20) Glucose (70-99) mg/dl POC Glucose (other) (70-99) mg/dl Lactate 1.6 (0.4-2.0) mmol/L Calcium (8.5-10.1) mg/dl POC Ioniz Calcium Yelena (1.12-1.32) mmol/l Total Bilirubin (0.2-1) mg/dl AST (15-37) U/L ALT (12-78) U/L Alkaline Phosphatase (45-117) U/L Total Protein (6.4-8.2) gm/dl Albumin (3.4-5.0) gm/dl Globulin (2.5-4.0) gm/dl Albumin/Globulin Ratio (0.9-2) Lipase (73-393) U/L COVID-19 Eval Order Covid19 at [facility] SARS-CoV-2 (PCR) NEGATIVE (Negative) Administered Medications Lactated Ringer's (Lr) 1,000 mls @ 75 mls/hr IV .[id number] [place] Stop: 12/12/20 11:44 Last Admin: 11/12/20 11:52 Dose: 75 mls/hr Documented by: [id number] Discontinued Medications Sodium Chloride (Nss) 500 mls @ 999 mls/hr IV .[id number] ONE Stop: 11/12/20 08:36 Last Infusion: 11/12/20 09:12 Dose: 0 mls/hr Documented by: [id number] Admin: 11/12/20 08:39 Dose: 999 mls/hr Documented by: [id number] Piperacillin Sod/Tazobactam (Sod 3.375 gm/ Dextrose) 115 mls @ 230 mls/hr IV Q8H [place]; Protocol Stop: 11/12/20 13:30 Last Admin: 11/12/20 11:52 Dose: 28.8 mls/hr Documented by: [id number] Ketorolac Tromethamine (Ketorolac Tromethamine 15 Mg/Ml Vial) 10 mg IV NOW ONE Stop: 11/12/20 10:47 Last Admin: 11/12/20 10:51 Dose: 10 mg Documented by: [id number] Ketorolac Tromethamine (Ketorolac Tromethamine 15 Mg/Ml Vial) Confirm Administered Dose 15 mg .ROUTE .Insportant-MED ONE Stop: 11/12/20 10:48 Last Admin: 11/12/20 10:50 Dose: Not Given Documented by: [id number] Morphine Sulfate (Morphine Sulfate 4 Mg/Ml 1 Ml Carp\Vial) 4 mg IV NOW STA Stop: 11/12/20 08:07 Last Admin: 11/12/20 08:40 Dose: 4 mg Documented by: [id number] Morphine Sulfate (Morphine Sulfate 4 Mg/Ml 1 Ml Carp\Vial) 4 mg IV NOW STA Stop: 11/12/20 09:48 Last Admin: 11/12/20 09:51 Dose: 4 mg Documented by: [id number] Ondansetron HCl (Ondansetron Inj 2 Mg/Ml 2 Ml Vial) Confirm Administered Dose 4 mg .ROUTE .STTengion-MED ONE Stop: 11/12/20 08:37 Last Admin: 11/12/20 08:39 Dose: 4 mg Documented by: [id number] Ondansetron HCl (Ondansetron Inj 2 Mg/Ml 2 Ml Vial) 4 mg IV NOW STA Stop: 11/12/20 10:47 Last Admin: 11/12/20 10:51 Dose: 4 mg Documented by: [id number] Ondansetron HCl (Ondansetron Inj 2 Mg/Ml 2 Ml Vial) Confirm Administered Dose 4 mg .ROUTE .STTengion-MED ONE Stop: 11/12/20 10:48 Last Admin: 11/12/20 10:51 Dose: Not Given Documented by: [id number] Imaging Data Radiologist's Impression: Abdomen/Pelvis CT 11/12/20 08:[address] WITHOUT CONTRAST CT DOSE: 1149.56 mGy.cm HISTORY: Right mid abdominal pain. TECHNIQUE: Multiaxial CT images of the abdomen and pelvis were performed without contrast. A dose lowering technique was utilized adhering to the principles of ALARA. COMPARISON STUDY: Abdomen and pelvis CT 09/12/2020. FINDINGS: Mild chronic interstitial thickening at the lung bases. The heart is mildly enlarged. Pacemaker wires are noted. No pneumoperitoneum. No pneumatosis. Focal segment of thickened small bowel within the mid abdomen best seen on images 246 through 291 with mild adjacent fat stranding. This is consistent with a nonspecific ileitis and favors an infectious or inflammatory process. The smal l bowel loops proximal to this area of thickened bowel are at the upper limits of normal. Therefore, no evidence for bowel obstruction at this time. The appendix is reportedly surgically absent. There is mild bladder wall thickening which may be due to underdistention. This remains unchanged. An intrauterine device is in good position. Colonic diverticulosis. No evidence for acute diverticulitis. Cholecystectomy. The unenhanced liver, spleen, right adrenal gland, and pancreas are unremarkable. No renal or ureteral stones. No hydronephrosis. Bilateral renal cysts remain unchanged. No retroperitoneal lymphadenopathy. Normal caliber abdominal aorta. No pelvic free fluid. IMPRESSION: 1. Focal segment of thickened small bowel within the midabdomen with adjacent mild fat stranding. This is consistent with a nonspecific ileitis and favors an infectious or inflammatory process. 2. No evidence for bowel obstruction at this time. 3. There is an intrauterine device present which appears in good position. 4. Colonic diverticulosis. 5. Prior cholecystectomy and appendectomy. ACT 112: Negative or not required by law. Electronically signed by: Ajay Monroy M.D. 11/12/2020 9:32 AM Discharge Plan Visit Data Chief Complaint: Abdominal Pain Stated Complaint: VOMITING,SEVERE ABD AND BACK PAIN ED Provider: Alfonzo Montague Discharge Problem: Abdominal pain, Ileitis, Syncope, CKD (chronic kidney disease), Hyperglycemia Patient Disposition: Admitted As Inpatient Discharge Instructions Interventions: ED Discharge Assessment Last Done: 11/12/20 12:13 Discharge Problem: Abdominal pain Qualifiers: Abdominal location: unspecified location Qualified Code(s): R10.9 - Unspecified abdominal pain Syncope Qualifiers: Syncope type: unspecified Qualified Code(s): R55 - Syncope and collapse CKD (chronic kidney disease) Qualifiers: Chronic kidney disease stage: unspecified stage Qualified Code(s): N18.9 - Chronic kidney disease, unspecified
[2020-11-12] MEDS ORDERED: ONDANSETRON INJ 2 MG/ML 2 ML VIAL ONE ×2 (08:36→10:47)
[2020-11-12 08:58] LABS: iSTAT Creatinine 2.4 mg/dl (0.6-1.3); iSTAT Ionized Calcium 1.21 mmol/l (1.12-1.32); iSTAT Potassium 4.1 mmol/L (3.3-5.0)
[2020-11-12 08:59] LABS: Basophils # (auto) 0.02 K/uL (0-0.2); Basophils % (auto) 0.2 %; Eosinophils # (auto) 0.09 K/uL (0-0.5); Eosinophils % (auto) 0.8 %; Hemoglobin 15.6 g/dL (12.0-16.0); Immature Granulocytes # (auto) 0.02 K/uL (0.00-0.02); Immature Granulocytes % (auto) 0.2 %; Lymphocytes # (auto) 1.16 K/uL (1.2-3.4); Mean Corpuscular Hemoglobin 30.4 pg (25-34); Mean Corpuscular Hgb Conc 33.9 g/dL (32-36); Mean Corpuscular Volume 89.7 fL (80-100); Mean Platelet Volume 10.3 fL (7.4-10.4); Monocytes # (auto) 0.53 K/uL (0.11-0.59); Neutrophils # (auto) 8.77 K/uL (1.4-6.5); Neutrophils % (auto) 82.8 %; Platelet Count 190 K/uL (130-400); RDW Coefficient of Variation 13.7 % (11.5-14.5); RDW Standard Deviation 45.2 fL (36.4-46.3); Red Blood Count 5.13 M/uL (4.2-5.4); White Blood Count 10.59 K/uL (4.8-10.8)
[2020-11-12 09:20] LABS: Albumin Level 3.9 gm/dl (3.4-5.0); BUN Creatinine Ratio 14.7 (10-20); Creatinine Clr Calc Pharmacy 22.1 ml/min; Est GFR (African American) 23.5 ml/min; Est GFR (Non-African American) 20.3 ml/min; Potassium 4.1 mmol/L (3.5-5.1)
[2020-11-12 09:23] LABS: Albumin Globulin Ratio 1.1 (0.9-2); Bilirubin,Total 1.3 mg/dl (0.2-1); Globulin 3.5 gm/dl (2.5-4.0); Total Protein 7.4 gm/dl (6.4-8.2)
--- NOTE | 2020-11-12 09:34 | CT Scan Report ---
ABDOMEN AND PELVIS CT WITHOUT CONTRAST CT DOSE: 1149.56 mGy.cm HISTORY: Right mid abdominal pain. TECHNIQUE: Multiaxial CT images of the abdomen and pelvis were performed without contrast. A dose lo wering technique was utilized adhering to the principles of ALARA. COMPARISON STUDY: Abdomen and pelvis CT 09/12/2020. FINDINGS: Mild chronic interstitial thickening at the lung bases. The heart is mildly enlarged. Pacem annalisa wires are noted. No pneumoperitoneum. No pneumatosis. Focal segment of thickened small bowel wit hin the mid abdomen best seen on images 246 through 291 with mild adjacent fat stranding. This is con sistent with a nonspecific ileitis and favors an infectious or inflammatory process. The small bowel loops proximal to this area of thickened bowel are at the upper limits of normal. Therefore, no evide nce for bowel obstruction at this time. The appendix is reportedly surgically absent. There is mild b ladder wall thickening which may be due to underdistention. This remains unchanged. An intrauterine d evice is in good position. Colonic diverticulosis. No evidence for acute diverticulitis. Cholecystect salty. The unenhanced liver, spleen, right adrenal gland, and pancreas are unremarkable. No renal or ur eteral stones. No hydronephrosis. Bilateral renal cysts remain unchanged. No retroperitoneal lymphade nopathy. Normal caliber abdominal aorta. No pelvic free fluid. IMPRESSION: 1. Focal segment of thickened small bowel within the midabdomen with adjacent mild fat stranding. Thi s is consistent with a nonspecific ileitis and favors an infectious or inflammatory process. 2. No evidence for bowel obstruction at this time. 3. There is an intrauterine device present which appears in good position. 4. Colonic diverticulosis. 5. Prior cholecystectomy and appendectomy. ACT 112: Negative or not required by law. Electronically signed by: Ajay Monroy M.D. 11/12/2020 9:32 AM
[2020-11-12] MEDS ORDERED: KETOROLAC TROMETHAMINE 15 MG/ML VIAL IV ONE (10:46)
[2020-11-12] MEDS ORDERED: ONDANSETRON INJ 2 MG/ML 2 ML VIAL IV STA (10:46)
[2020-11-12] MEDS ORDERED: KETOROLAC TROMETHAMINE 15 MG/ML VIAL ONE (10:47)
[2020-11-12] MEDS ORDERED: PIPERACILLIN/TAZOBACTAM 3.375 GM in DEXTROSE 5% 100 ML IV SCH (11:35)
--- NOTE | 2020-11-12 11:43 | History & Physical Report ---
Date of Service November 12, 2020 Assessment & Plan (1) Ileitis: Impression: This is a 75-year-old female that presented with abdominal pain since 04:00 this morning. She reportedly has had 1 episode of vomiting and no bowel movements or diarrhea. She received morphine and Toradol in the emergency department. CT scan shows probable ileitis with no clear obstruction. There is no free air or fluid. Continue with Dilaudid 1/2 mg every 4 hours for pain continue Continue with Toradol 15 mg every 6 hours for pain Blood cultures x2 have been ordered Start Zosyn every 8 hours once blood cultures are obtained N.p.o. Lactated Ringer's at 75 mL/h. Patient with AVR so be judicious with fluids Consult gastroenterology for ileitis and elevated bilirubin Follow on medical telemetry (2) Obstructive sleep apnea: Patient reportedly has CPAP machine at home but is noncompliant for the last 2 years In the emergency department patient had episode of apnea with hypoxia to 77% with sleep While awake patient had SaO2 in the mid 90s on room air CPAP at 8 cm of water at night. Hold for abdominal distention or increased pain Supplemental oxygen via nasal cannula 2 L/min (3) COPD (chronic obstructive pulmonary disease): No evidence of pulmonary function testing Patient is not on any outpatient inhalers Continue to monitor for hypoxia No history of tobacco abuse or secondhand smoke exposure Check a chest x-ray for hypoxia Follow clinically (4) Coronary artery disease: History of CABG and aortic valve replacement at [facility] Continue Eliquis 2.5 mg p.o. twice daily Hold Lasix at this time and administer as needed Left ventricular ejection fraction of 25 to 30% Pacemaker is in place Patient is allergic to aspirin (rash and urticaria) Hold statin medication for now as patient is n.p.o. (5) CHF (congestive heart failure), NYHA class III: LVEF 25 to 30% Hold Lasix for now as patient appears to be dry on exam No indication for repeat echocardiogram at this time We will follow patient on medical telemetry (6) Chronic kidney disease, stage 4 (severe): Slight elevation and creatinine Follow serial labs Gentle hydration for now with lactated Ringer's at 75 mL/h (7) Diabetes mellitus type 2 in obese: Patient typically uses Lantus 5 units at bedtime with no other coverage Hemoglobin A1c in August was 8.5 Check hemoglobin A1c in the morning Hold Lantus as patient is n.p.o. NovoLog sliding scale insulin Follow BSG's (8) Endometrial cancer, grade I: IUD is in place Patient reports no vaginal bleeding Outpatient management (9) Esophageal dysmotility: GI consulted for ileitis and elevated bilirubin Patient denies any acute complaints (10) Hyperlipidemia: Hold statin for now as patient is n.p.o. (11) Hypertension: Home meds include Toprol-XL 25 mg daily Hemodynamically stable Monitor on telemetry (12) Vitamin D deficiency: Hold vitamin D supplement at this time Resume as patient improves (13) DVT prophylaxis: Chemical prophylaxis with Eliquis 2.5 mg p.o. twice daily Ambulate as tolerated Please refer to Dr. Hebert's addendum for further recommendations and corrections History of Present Illness Primary Care Provider: COOPER Cuevas This is a 75-year-old female with a past medical history including CAD status post CABG, aortic valve replacement, endometrial cancer, CHF with an ejection fraction of 25 to 30%, chronic kidney disease stage IV, diabetes mellitus type 1 on Lantus daily, GERD, depression, vitamin D3 deficiency, hyper lipedema near, morbid obesity with a BMI of 40 kg/m, obstructive sleep apnea (noncompliant with CPAP) chronic hypoxia on supplemental home O2 of 2 L/min via nasal cannula of unknown etiology. The patient presented to the emergency department with abdominal pain that was severe. She reports that at 4 AM she woke up with nausea but was unable to vomit. She had a period of belching and then felt as though she had to go to the bathroom. She sat on the toilet from 04:30 to 06:15 with no bowel movement and no diarrhea. She denies any fever, sweats, chills, rigors. She does report that she is always cold and typically keeps the house at about 86 F. On examination she has significant pain to light palpation in the right upper quadrant. Bowel sounds are present with no evidence of high-pitched tinkling. She is a lifelong non-smoker. She is a lifelong nondrinker. She does have ambulatory dysfunction and uses a walker at home. She has had no recent falls. She denies eating out or having any unusual or new foods. She states that she takes her medications as prescribed. She does have a CPAP machine at home but has not used it for least the last 2 years. This is provided by [facility] patient. In the emergency department while sleeping she was found to be apneic with saturations dropping to 76% on room air. The patient states that she has no history of Covid infection. She has not had any vaccinations for Covid. Patient does not have living will or advanced directive but wishes to be full resuscitation in the event of cardiopulmonary arrest. Allergies Allergy/AdvReac Type Severity Reaction Status Date / Time aspirin Allergy Intermediate HIVES Verified 11/12/20 08:54 Iodinated Contrast Media Allergy Intermediate HIVES - Verified 11/12/20 08:54 MRI DYE levofloxacin Allergy Intermediate HIVES, Verified 11/12/20 08:54 VEIN IRRITATION W/IV LEVAQUIN erythromycin base Allergy Unknown UNKNOWN Verified 11/12/20 08:54 Home Medications Medication Instructions Recorded Confirmed Type lancing device #1 ea 07/30/19 11/06/20 Rx nystatin 100,000 unit/gram topical 1 applic TOPICAL BID #60 g 01/24/20 11/12/20 Rx powder metoprolol succinate 25 mg 25 mg PO QAM #90 tab 02/24/20 11/12/20 Rx tablet,extended release 24 hr insulin glargine 100 unit/mL (3 5 unit SUBCUT HS #15 ml 06/21/20 11/12/20 Rx mL) subcutaneous pen apixaban 2.5 mg tablet 2.5 mg PO BID #60 tab 07/14/20 11/12/20 Rx cholecalciferol (vitamin D3) 25 mcg PO QAM 08/13/20 11/12/20 History [Vitamin D3] furosemide 40 mg tablet 40 mg PO .COMPLEX #180 tab 08/23/20 11/12/20 Rx atorvastatin 40 mg tablet 40 mg PO HS #90 tab 09/11/20 11/12/20 Rx blood sugar diagnostic #100 ea 09/11/20 11/06/20 Rx blood-glucose meter #1 ea 09/11/20 11/06/20 Rx escitalopram oxalate 10 mg tablet 10 mg PO QAM #90 tab 09/11/20 11/12/20 Rx lancets #102 ea 09/11/20 11/06/20 Rx lancets 30 gauge #200 ea 09/11/20 11/06/20 Rx pantoprazole 40 mg tablet,delayed 40 mg PO BID #60 tab 09/19/20 11/12/20 Rx release Past Med/Surg History Medical History Aortic valve disorder Beta shayne toxicity Cellulitis COPD (chronic obstructive pulmonary disease) COPD with acute exacerbation CVA (cerebral vascular accident) (11/23/10) Esophageal dysmotility Hematuria History of - coronary artery bypass grafting (11/23/10) 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) IUD surveillance Mild acid reflux Obstructive sleep apnea Olecranon bursitis of right elbow Post-menopausal bleeding Repair of aortic valve with tissue graft (11/23/10) Urge incontinence of urine Vaginal bleeding Surgical History H/O aortic valve replacement 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 History of aortic aneurysm repair Hx of CABG CABG x1 (PACHECO TO LAD for LV hypokinesis-not CAD-- Done at the time of AVR and aortic root graft) 2002 Family History Mother Diabetes Myocardial infarction Sister Diabetes Son Hypertension Denies family history of Ovarian cancer Prostate cancer Breast cancer Lung cancer Colorectal cancer Cancer Social History Smoking Status: Never smoker Second Hand Exposure: No; Hx Alcohol Use: No Hx Substance Use: No Preferred Language: Yoruba Communication Ability: Effective Docket Clerk Required: No Beliefs That Will Affect Care: None marital status: / Current Living Situation: Family current occupational status: disabled Feels Safe at Home: Yes Safety Concerns: Feels Safe At This Time caffeine: Yes (soda) Dental Care, Regularly: No Physical Activity Frequency: Daily Seatbelt Use: sometimes Sunscreen Use: No Assistive Devices: Oxygen - Continuous Review of Systems Review of Systems: All systems reviewed & are unremarkable except as noted in HPI & below Physical Exam Physical Exam: GENERAL : Moderate acute distress EYES: No icterus, gaze conjugate. Pupils equal round reactive to light NOSE: No evidence of epistaxis MOUTH: No lesions or candidiasis. Mucosa dry NECK: Supple LUNGS: Crackles at the bilateral bases. No rhonchi. No bronchospasticity HEART: Regular, rate controlled ABDOMEN: Soft, ND, BS Present, no high-pitched bowel sounds, pain to light pal pation in the right upper quadrant EXTREMITIES: No LE edema, pedal pulses intact and equal bilaterally NEURO: A&OX3. Pupils equal round and reactive to light. Results & Data Results & Data ([facility]) Vital Signs (Past 12 Hours) Vital Signs Temp Pulse Resp BP Pulse Ox 11/12/20 10:30 60 17 121/67 97 11/12/20 10:01 60 23 124/73 96 11/12/20 09:30 61 31 H 128/74 11/12/20 09:00 61 26 H 136/72 95 11/12/20 08:04 60 18 152/102 H 96 11/12/20 07:50 37.2 C 68 18 92/53 L 98 Laboratory Results 11/12/20 08:40 11/12/20 08:40 Lactic acid 1.6 Diagnostic Findings ABDOMEN AND PELVIS CT WITHOUT CONTRAST CT DOSE: 1149.56 mGy.cm HISTORY: Right mid abdominal pain. TECHNIQUE: Multiaxial CT images of the abdomen and pelvis were performed without contrast. A dose lowering technique was utilized adhering to the principles of ALARA. COMPARISON STUDY: Abdomen and pelvis CT 09/12/2020. FINDINGS: Mild chronic interstitial thickening at the lung bases. The heart is mildly enlarged. Pacemaker wires are noted. No pneumoperitoneum. No pneumatosis. Focal segment of thickened small bowel within the mid abdomen best seen on images 246 through 291 with mild adjacent fat stranding. This is consistent with a nonspecific ileitis and favors an infectious or inflammatory process. The sm all bowel loops proximal to this area of thickened bowel are at the upper limits of normal. Therefore, no evidence for bowel obstruction at this time. The appendix is reportedly surgically absent. There is mild bladder wall thickening which may be due to underdistention. This remains unchanged. An intrauterine device is in good position. Colonic diverticulosis. No evidence for acute diverticulitis. Cholecystectomy. The unenhanced liver, spleen, right adrenal gland, and pancreas are unremarkable. No renal or ureteral stones. No hydronephrosis. Bilateral renal cysts remain unchanged. No retroperitoneal lymphadenopathy. Normal caliber abdominal aorta. No pelvic free fluid. IMPRESSION: 1. Focal segment of thickened small bowel within the midabdomen with adjacent mild fat stranding. This is consistent with a nonspecific ileitis and favors an infectious or inflammatory process. 2. No evidence for bowel obstruction at this time. 3. There is an intrauterine device present which appears in good position. 4. Colonic diverticulosis. 5. Prior cholecystectomy and appendectomy. ACT 112: Negative or not required by law. Electronically signed by: Ajay Monroy M.D. 11/12/2020 9:32 AM Code Status & VTE Plan Code Status Full resuscitation level I VTE Prophylaxis Plan VTE Prophylaxis will be ordered: Yes Supervising Physician Co-Signing Physician Notes LATOYA Supervision Note: I personally saw and examined the patient. I verified all briscoe points and agree with LATOYA ePres with the following exceptions and/or additions: This pt is a 75-year-old female with a history of CAD status post CABG, aortic valve replacement, endometrial cancer treated with IUD, CHF with an ejection fraction of 25 to 30%, chronic kidney disease stage IV, DM 2 on Lantus daily, GERD, depression, vitamin D3 deficiency, hyperlipedema, morbid obesity with a BMI of 40 kg/m, obstructive sleep apnea (noncompliant with CPAP) chronic hypoxia on supplemental home O2 of 2 L/min who presents to the ER with severe right mid abdominal pain and nausea with vomiting. She also has a mild acute kidney injury in the setting of CKD stage IV and has not been able to tolerate p.o. She was given opioids in the ER which seemed to settle down her pain and Toradol also which really helped. She denies any recent sick contacts. No fevers or chills. No chest pain or shortness of breath. History and ROS reviewed as above Vitals reviewed NAD, obese, AAOx3 RRR no mgr CTAB no wcr ABd +BS soft, mild +TTP epigastric and right mid abdomen region without guarding or rebound Extremities no edema or calf tenderness Skin no rashes Laboratory values in radiology studies reviewed 75-year-old female here with abdominal pain found to have ileitis on CT of the abdomen/pelvis. Total bilirubin is very minimally elevated as is alkaline phosphatase although this has been elevated in the past and may be due perhaps to fatty liver given morbid obesity. Lipase is also mildly elevated but no evidence of pancreatitis on CT scan. Lactate is negative. She is unable to have a contrasted CT due to her poor renal function. It does not seem likely that she is having mesenteric ischemia given a normal lactate although she does have pain that seems somewhat out of proportion to findings on CT. It is much improved now with Toradol and opioids. Keep n.p.o., continue IV fluids Give IV Zosyn empirically Consult to GI placed. Consider ultrasound of the abdomen with Dopplers if pain persists or worsens to evaluate for mesenteric artery stenosis PG Care Time/CCT Total # of Minutes Spent Total Time Spent with Patient: Total time spent is greater than 50% in coordination of care (as documented) at patient's floor/unit and/or counseling patient: 60 minutes including discussion with patient and patient's starr harmon Coding Level of Care Code 19249 Initial Inpt Care Lvl 3 Diagnoses Ileitis K52.9 Obstructive sleep apnea G47.33 COPD (chronic obstructive pulmonary disease) J44.9 Coronary artery disease I25.10 Associated angina: without angina Coronary Disease-Associated Artery/Lesion type: [place] artery [place] vs. transplanted heart: [place] heart CHF (congestive heart failure), NYHA class III I50.23 Congestive heart failure chronicity: acute on chronic Congestive heart failure type: systolic Chronic kidney disease, stage 4 (severe) N18.4 Diabetes mellitus type 2 in obese E11.69; E66.9 Endometrial cancer, grade I C54.1 Esophageal dysmotility K22.4 Hyperlipidemia E78.5 Hyperlipidemia type: unspecified Hypertension I10 Hypertension type: essential hypertension Vitamin D deficiency E55.9 DVT prophylaxis Z29.9 Time Spent (min) 60 (1) CHF (congestive heart failure), NYHA class III Congestive heart failure chronicity: acute on chronic Congestive heart fail ure type: systolic Qualified Code(s): I50.23 - Acute on chronic systolic (congestive) heart failure (2) Coronary artery disease Associated angina: without angina Coronary Disease-Associated Artery/Lesion type: [place] artery [place] vs. transplanted heart: [place] heart Qualified Code(s): I25.10 - Atherosclerotic heart disease of [place] coronary artery without angina pectoris (3) Hyperlipidemia Hyperlipidemia type: unspecified Qualified Code(s): E78.5 - Hyperlipidemia, u nspecified (4) Hypertension Hypertension type: essential hypertension Qualified Code(s): I10 - Essential (primary) hypertension
[2020-11-12] MEDS: LACTATED RINGER'S 1,000 ML IV SCH (11:52)
[2020-11-12] MEDS ORDERED: GLUCOSE 40% GEL 15 GM TUBE PO PRN (12:38)
[2020-11-12] MEDS ORDERED: GLUCAGON FOR INJ 1 MG VIAL SQ PRN (12:38)
[2020-11-12] MEDS ORDERED: ONDANSETRON INJ 2 MG/ML 2 ML VIAL IV PRN (12:38)
[2020-11-12] MEDS ORDERED: PIPERACILL/TAZOBAC CONSULT ACTIVE PRN (12:38)
[2020-11-12] MEDS ORDERED: DEXTROSE 50% 50 ML SYRINGE IV PRN (12:38)
[2020-11-12] MEDS ORDERED: GLUCOSE 10 TABS/TUBE PO PRN (12:38)
[2020-11-12] MEDS ORDERED: CARBOHYDRATES FOR HYPOGLYCEMIA PO PRN (12:38)
--- NOTE | 2020-11-12 13:12 | XRay Report ---
XR chest 1V portable HISTORY: Hypoxia COMPARISON: Chest 08/14/2020. FINDINGS: No pneumothorax. No pleural effusions. There are poststernotomy changes and a left-sided pa cemaker/defibrillator. There is mild cardiomegaly, unchanged. No new focal lung consolidations to sug gest pneumonia. There is mild central pulmonary vascular congestion without overt edema. IMPRESSION: Cardiomegaly with mild central pulmonary vascular congestion without overt edema. ACT 112: Negative or not required by law. Electronically signed by: Ajay Monroy M.D. 11/12/2020 1:11 PM
[2020-11-12] MEDS ORDERED: PIPERACILLIN/TAZOBACTAM 3.375 GM in DEXTROSE 5% 100 ML IV ONE (13:15)
[2020-11-12] MEDS: INSULIN ASPART 100 UNITS/ML 3 ML PEN SC SCH ×3 (13:44→23:22)
[2020-11-12] MEDS: KETOROLAC TROMETHAMINE 15 MG/ML VIAL IV PRN (17:29)
[2020-11-12] MEDS: PIPERACILLIN/TAZOBACTAM 4.5 GM in DEXTROSE 5% 100 ML IV SCH (17:32)
[2020-11-12 18:32] LABS: Magnesium 1.6 mg/dl (1.8-2.4)
[2020-11-12] MEDS ORDERED: Nursing to Pharmacy Communication SCH (19:00)
[2020-11-12] MEDS: APIXABAN 2.5 MG TAB PO SCH (21:14)
[2020-11-12] MEDS: HYDROmorphone INJ 0.5 MG/0.5 ML SYR IV PRN (21:29)
[2020-11-13] MEDS: LACTATED RINGER'S 1,000 ML IV SCH ×2 (01:15→11:22)
[2020-11-13] MEDS: PIPERACILLIN/TAZOBACTAM 4.5 GM in DEXTROSE 5% 100 ML IV SCH ×3 (01:17→21:05)
[2020-11-13] MEDS: INSULIN ASPART 100 UNITS/ML 3 ML PEN SC SCH ×4 (06:16→20:20)
--- NOTE | 2020-11-13 06:26 | Electrocardiogram Report ---
Test Reason : Blood Pressure : / mmHG Vent. Rate : 067 BPM Atrial Rate : 069 BPM P-R Int : 000 ms QRS Dur : 162 ms QT Int : 496 ms P-R-T Axes : 000 167 017 degrees QTc Int : 524 ms Ventricular-paced rhythm Atrial fibrillation Abnormal ECG When compared with ECG of 13-AUG-2020 16:31, No significant change Confirmed by Greg Edward ([id number]) on 11/13/2020 6:26:08 AM Referred By: REFERRED SELF Confirmed By:Greg Edward
[2020-11-13 06:47] LABS: Basophils # (auto) 0.02 K/uL (0-0.2); Basophils % (auto) 0.3 %; Eosinophils # (auto) 0.17 K/uL (0-0.5); Eosinophils % (auto) 2.3 %; Hemoglobin 13.6 g/dL (12.0-16.0); Immature Granulocytes # (auto) 0.01 K/uL (0.00-0.02); Immature Granulocytes % (auto) 0.1 %; Lymphocytes # (auto) 1.71 K/uL (1.2-3.4); Lymphocytes % (auto) 22.7 %; Mean Corpuscular Hemoglobin 29.4 pg (25-34); Mean Corpuscular Hgb Conc 32.4 g/dL (32-36); Mean Corpuscular Volume 90.7 fL (80-100); Mean Platelet Volume 9.6 fL (7.4-10.4); Monocytes # (auto) 0.45 K/uL (0.11-0.59); Neutrophils # (auto) 5.17 K/uL (1.4-6.5); Neutrophils % (auto) 68.6 %; Platelet Count 153 K/uL (130-400); RDW Coefficient of Variation 14.1 % (11.5-14.5); RDW Standard Deviation 46.7 fL (36.4-46.3); Red Blood Count 4.63 M/uL (4.2-5.4); White Blood Count 7.53 K/uL (4.8-10.8)
[2020-11-13 06:52] LABS: Appearance Urine Clear (Clear); Bilirubin Urine Negative (Negative); Blood Urine Negative (Negative); Color Urine Yellow; Glucose Urine UA Negative (Negative); Ketones Urine Trace (Negative); Leukocyte Esterase Urine Negative (Negative); Nitrite Urine Negative (Negative); Protein Urine Negative (Negative); Specific Gravity Urine 1.024 (1.000-1.030); Urobilinogen Urine Negative (Negative)
[2020-11-13 07:26] LABS: Albumin Level 3.3 gm/dl (3.4-5.0); BUN Creatinine Ratio 13.9 (10-20); Est GFR (African American) 18.1 ml/min; Est GFR (Non-African American) 15.6 ml/min; Potassium 3.7 mmol/L (3.5-5.1)
[2020-11-13 07:28] LABS: Albumin Globulin Ratio 1.1 (0.9-2); Bilirubin,Total 1.6 mg/dl (0.2-1); Globulin 3.1 gm/dl (2.5-4.0); Total Protein 6.4 gm/dl (6.4-8.2)
[2020-11-13 07:37] LABS: Estimated Average Glucose 217 mg/dl; Hemoglobin A1C 9.2 % (4.5-5.6)
[2020-11-13] MEDS: KETOROLAC TROMETHAMINE 15 MG/ML VIAL IV PRN ×2 (10:06→20:03)
[2020-11-13] MEDS: PANTOprazole 40 MG in SYRINGE 0 ML IV SCH (11:22)
[2020-11-13] MEDS: APIXABAN 2.5 MG TAB PO SCH ×2 (11:22→20:03)
--- NOTE | 2020-11-13 22:08 | Hospitalist Progress Note ---
Date of Service November 13, 2020 Assessment & Plan (1) Acute kidney injury: SUSSY on CKD stage IV Cr rising to 2.8 continue LR and avoid nephrotoxins, she is making urine repeat BMP in the morning (2) Ileitis: Impression: This is a 75-year-old female that presented with abdominal pain since 04:00 this morning. She reportedly has had 1 episode of vomiting and no bowel movements or diarrhea. She received morphine and Toradol in the emergency department. CT scan shows probable ileitis with no clear obstruction. There is no free air or fluid. pain is better, no GI symptoms today continue Zosyn every 8 hours once blood cultures are obtained allow clear liquid diet continue Lactated Ringer's at 75 mL/h. Patient with AVR so be judicious with fluids Consult gastroenterology for ileitis and elevated bilirubin, awaiting consult (3) Chronic kidney disease, stage 4 (severe): as above, Cr up to 2.8 today, K is 3.7 Gentle hydration for now with lactated Ringer's at 75 mL/h (4) Obstructive sleep apnea: Patient reportedly has CPAP machine at home but is noncompliant for the last 2 years In the emergency department patient had episode of apnea with hypoxia to 77% with sleep While awake patient had SaO2 in the mid 90s on room air CPAP at 8 cm of water at night. Hold for abdominal distention or increased pain Supplemental oxygen via nasal cannula 2 L/min (5) COPD (chronic obstructive pulmonary disease): No evidence of pulmonary function testing Patient is not on any outpatient inhalers Continue to monitor for hypoxia No history of tobacco abuse or secondhand smoke exposure Check a chest x-ray for hypoxia Follow clinically (6) Coronary artery disease: History of CABG and aortic valve replacement at [facility] Continue Eliquis 2.5 mg p.o. twice daily Hold Lasix at this time and administer as needed Left ventricular ejection fraction of 25 to 30% Pacemaker is in place Patient is allergic to aspirin (rash and urticaria) Hold statin medication for now as patient is n.p.o. (7) CHF (congestive heart failure), NYHA class III: LVEF 25 to 30% continue to hold Lasix No indication for repeat echocardiogram at this time We will follow patient on medical telemetry (8) Diabetes mellitus type 2 in obese: Patient typically uses Lantus 5 units at bedtime with no other coverage Hemoglobin A1c in August was 8.5 Check hemoglobin A1c in the morning Hold Lantus as patient is n.p.o. NovoLog sliding scale insulin Follow BSG's (9) Endometrial cancer, grade I: IUD is in place Patient reports no vaginal bleeding Outpatient management (10) Esophageal dysmotility: GI consulted for ileitis and elevated bilirubin Patient denies any acute complaints (11) Hyperlipidemia: Hold statin for now as patient is n.p.o. (12) Hypertension: Home meds include Toprol-XL 25 mg daily Hemodynamically stable Monitor on telemetry (13) Vitamin D deficiency: Hold vitamin D supplement at this time Resume as patient improves (14) DVT prophylaxis: Chemical prophylaxis with Eliquis 2.5 mg p.o. twice daily Ambulate as tolerated Please refer to Dr. Hebert's addendum for further recommendations and corrections Admission and Anticipated Discharge Date Admission Date: November 12, 2020 Subjective patient feeling better, would like to try to eat/drink no abdominal pain, no diarrhea today reviewed chart and labs Cr up to 2.8 from 2.3 and K is 3.7 WBC and Hb normal reviewed CT, showed ileitis, infectious/inflammatory, awaiting GI consult no fever, no dyspnea, no chest pain no nausea or vomiting appreciate consult from clinical nurse educator Review of Systems Review of Systems: All systems reviewed & are unremarkable except as noted in Subjective Physical Exam Constitutional: well developed, well nourished and + obese; no acute distress Neck: trachea midline, no thyromegaly + thick neck Respiratory: normal respiratory effort, lungs clear to auscultation Cardiovascular: RRR, no murmur, no edema Gastrointestinal (Abdomen): normal bowel sounds, soft, nontender, no hepatosplenomegaly Musculoskeletal: no cyanosis or clubbing, extremities motor strength 5/5 Skin: no rashes, warm and dry Neurologic: patellar DTR's 2+ bilat, sensation intact and PERRL, EOMI, accommodation nl, no face palsy, no dysarthria Psychiatric: A+Ox3, euthymic affect Lymphatic: no cervical or axillary lymphadenopathy Results & Data Results & Data ([place]) Vital Signs (Past 12 Hours) Vital Signs Temp Pulse Pulse Resp BP Pulse Ox 11/13/20 19:11 36.4 C L 59 L 18 115/72 99 11/13/20 15:52 65 11/13/20 15:10 36.7 C 67 22 106/64 98 11/13/20 11:25 36.6 C 62 18 97/64 L 91 Laboratory Results Laboratory Results - last 24 hr 11/12/20 11/13/20 11/13/20 23:19 06:12 06:20 WBC RBC Hgb Hct MCV MCH MCHC RDW Std Deviation RDW Coeff of Chriss Plt Count MPV Immature Gran % (Auto) Neut % (Auto) Lymph % (Auto) [place] % (Auto) Eos % (Auto) Baso % (Auto) Neut # (Auto) Lymph # (Auto) [place] # (Auto) Eos # (Auto) Baso # (Auto) Immature Gran # (Auto) Sodium Potassium Chloride Carbon Dioxide Anion Gap BUN Creatinine Est Cr Clr Drug Dosing Est GFR ( Amer) Est GFR (Non-Af Amer) BUN/Creatinine Ratio Glucose POC Glucose 142 H 127 H Estimat Average Glucose Hemoglobin A1c Calcium Total Bilirubin AST ALT Alkaline Phosphatase Total Protein Albumin Globulin Albumin/Globulin Ratio Urine Color Yellow Urine Appearance Clear Urine pH 5.0 Ur Specific Bradford 1.024 Urine Protein Negative Urine Glucose (UA) Negative Urine Ketones Trace H Urine Blood Negative Urine Nitrite Negative Urine Bilirubin Negative Urine Urobilinogen Negative Ur Leukocyte Esterase Negative 11/13/20 11/13/20 11/13/20 06:30 06:30 06:30 WBC 7.53 RBC 4.63 Hgb 13.6 Hct 42.0 MCV 90.7 MCH 29.4 MCHC 32.4 RDW Std Deviation 46.7 H RDW Coeff of Chriss 14.1 Plt Count 153 MPV 9.6 Immature Gran % (Auto) 0.1 Neut % (Auto) 68.6 Lymph % (Auto) 22.7 N[place]olls % (Auto) 6.0 Eos % (Auto) 2.3 Baso % (Auto) 0.3 Neut # (Auto) 5.17 Lymph # (Auto) 1.71 [place]olls # (Auto) 0.45 Eos # (Auto) 0.17 Baso # (Auto) 0.02 Immature Gran # (Auto) 0.01 Sodium 141 Potassium 3.7 Chloride 104 Carbon Dioxide 33 H Anion Gap 4.0 BUN 39 H Creatinine 2.80 H D Est Cr Clr Drug Dosing 18.0 Est GFR ( Amer) 18.1 Est GFR (Non-Af Amer) 15.6 BUN/Creatinine Ratio 13.9 Glucose 154 H POC Glucose Estimat Average Glucose 217 Hemoglobin A1c 9.2 H Calcium 9.0 Total Bilirubin 1.6 H AST 42 H ALT 45 Alkaline Phosphatase 154 H Total Protein 6.4 Albumin 3.3 L Globulin 3.1 Albumin/Globulin Ratio 1.1 Urine Color Urine Appearance Urine pH Ur Specific Bradford Urine Protein Urine Glucose (UA) Urine Ketones Urine Blood Urine Nitrite Urine Bilirubin Urine Urobilinogen Ur Leukocyte Esterase 11/13/20 11/13/20 11/13/20 11:46 16:03 20:11 WBC RBC Hgb Hct MCV MCH MCHC RDW Std Deviation RDW Coeff of Chriss Plt Count MPV Immature Gran % (Auto) Neut % (Auto) Lymph % (Auto) [place] % (Auto) Eos % (Auto) Baso % (Auto) Neut # (Auto) Lymph # (Auto) [place] # (Auto) Eos # (Auto) Baso # (Auto) Immature Gran # (Auto) Sodium Potassium Chloride Carbon Dioxide Anion Gap BUN Creatinine Est Cr Clr Drug Dosing Est GFR ( Amer) Est GFR (Non-Af Amer) BUN/Creatinine Ratio Glucose POC Glucose 140 H 225 H 94 Estimat Average Glucose Hemoglobin A1c Calcium Total Bilirubin AST ALT Alkaline Phosphatase Total Protein Albumin Globulin Albumin/Globulin Ratio Urine Color Urine Appearance Urine pH Ur Specific Bradford Urine Protein Urine Glucose (UA) Urine Ketones Urine Blood Urine Nitrite Urine Bilirubin Urine Urobilinogen Ur Leukocyte Esterase Medications Administered Current Inpatient Medications Apixaban (Apixaban 2.5 Mg Tab) 2.5 mg PO BID [place] Stop: 12/12/20 20:59 Last Admin: 11/13/20 20:03 Dose: 2.5 mg Documented by: Dextrose (Dextrose 50% 50 Ml Syringe) 25 - 50 ml IV UD PRN; Protocol PRN Reason: Hypoglycemia Protocol Stop: 12/12/20 12:37 Glucagon (Glucagon For Inj 1 Mg Vial) 1 mg SQ UD PRN; Protocol PRN Reason: Hypoglycemia Protocol Stop: 12/12/20 12:37 Glucose (Glucose 10 Tabs/Tube) 4 - 8 tabs PO UD PRN; Protocol PRN Reason: Hypoglycemia Protocol Stop: 12/12/20 12:37 Glucose (Glucose 40% Gel 15 Gm Tube) 15 - 30 gm PO UD PRN; Protocol PRN Reason: Hypoglycemia Protocol Stop: 12/12/20 12:37 Hydromorphone HCl (Hydromorphone Inj 0.5 Mg/0.5 Ml Syr) 0.5 mg IV Q4H PRN PRN Reason: Pain Stop: 11/26/20 12:37 Last Admin: 11/12/20 21:29 Dose: 0.5 mg Documented by: Lactated Ringer's (Lr) 1,000 mls @ 75 mls/hr IV .[id number] [facility] [place] Stop: 12/12/20 11:44 Last Admin: 11/13/20 11:22 Dose: 75 mls/hr Documented by: Pantoprazole Sodium 40 mg/ (Syringe) 10 mls @ 5 mls/min IV DAILY@1100 [place] Stop: 12/13/20 10:59 Last Admin: 11/13/20 11:22 Dose: 5 mls/min Documented by: Piperacillin Sod/Tazobactam (Sod 4.5 gm/ Dextrose) 120 mls @ 30 mls/hr IV Q12H [facility] [place]; Protocol Stop: 11/22/20 21:59 Last Admin: 11/13/20 21:05 Dose: 30 mls/hr Documented by: Insulin Aspart (Insulin Aspart 100 Units/Ml 3 Ml Pen) 1 units SC ACHS [facility] [place] Stop: 12/13/20 16:29 Last Admin: 11/13/20 20:20 Dose: Not Given Documented by: Ketorolac Tromethamine (Ketorolac Tromethamine 15 Mg/Ml Vial) 15 mg IV Q6H PRN PRN Reason: Pain Stop: 11/17/20 12:37 Last Admin: 11/13/20 20:03 Dose: 15 mg Documented by: Miscellaneous (Carbohydrates For Hypoglycemia ) 15 - 30 gm PO UD PRN PRN Reason: Hypoglycemia Protocol Stop: 12/12/20 12:37 Miscellaneous Information (Piperacill/Tazobac Consult Active) 1 ea N/A UD PRN PRN Reason: Consult Stop: 12/12/20 12:37 Ondansetron HCl (Ondansetron Inj 2 Mg/Ml 2 Ml Vial) 4 mg IV Q6H PRN PRN Reason: Nausea Stop: 12/12/20 12:37 Last Admin: 11/13/20 13:45 Dose: 4 mg Documented by: PG Care Time/CCT Total # of Minutes Spent Total Time Spent with Patient: Total time spent is greater than 50% in coordina tion of care (as documented) at patient's floor/unit and/or counseling patient: Coding Level of Care Code 77903 Subseq Hosp Care Lvl 2 Diagnoses Acute kidney injury N17.9 Ileitis K52.9 Chronic kidney disease, stage 4 (severe) N18.4 Obstructive sleep apnea G47.33 COPD (chronic obstructive pulmonary disease) J44.9 Coronary artery disease I25.10 Associated angina: without angina Coronary Disease-Associated Artery/Lesion type: crow artery Solomon vs. transplanted heart: crow heart CHF (congestive heart failure), NYHA class III I50.23 Congestive heart failure chronicity: acute on chronic Congestive heart failure type: systolic Diabetes mellitus type 2 in obese E11.69; E66.9 Endometrial cancer, grade I C54.1 Esophageal dysmotility K22.4 Hyperlipidemia E78.5 Hyperlipidemia type: unspecified Hypertension I10 Hypertension type: essential hypertension Vitamin D deficiency E55.9 DVT prophylaxis Z29.9 (1) CHF (congestive heart failure), NYHA class III Congestive heart failure chronicity: acute on chronic Congestive heart failure type: systolic Qualified Code(s): I50.23 - Acute on chronic systolic (congestive) heart failure (2) Coronary artery disease Associated angina: without angina Coronary Disease-Associated Artery/Lesion type: crow artery Solomon vs. transplanted heart: crow heart Qualified Code(s): I25.10 - Atherosclerotic heart disease of crow coronary artery without angina pectoris (3) Hyperlipidemia Hyperlipidemia type: unspecified Qualified Code(s): E78.5 - Hyperlipidemia, unspecified (4) Hypertension Hypertension type: essential hypertension Qualified Code(s): I10 - Essential (primary) hypertension
[2020-11-14] MEDS: LACTATED RINGER'S 1,000 ML IV SCH ×2 (00:04→13:13)
[2020-11-14] MEDS: HYDROmorphone INJ 0.5 MG/0.5 ML SYR IV PRN (02:28)
[2020-11-14] MEDS: KETOROLAC TROMETHAMINE 15 MG/ML VIAL IV PRN ×2 (04:23→15:05)
[2020-11-14 06:24] LABS: Basophils # (auto) 0.01 K/uL (0-0.2); Basophils % (auto) 0.1 %; Eosinophils # (auto) 0.19 K/uL (0-0.5); Eosinophils % (auto) 2.6 %; Hematocrit (blood only) 38.8 % (37-47); Hemoglobin 12.8 g/dL (12.0-16.0); Immature Granulocytes # (auto) 0.01 K/uL (0.00-0.02); Immature Granulocytes % (auto) 0.1 %; Lymphocytes # (auto) 1.34 K/uL (1.2-3.4); Lymphocytes % (auto) 18.1 %; Mean Corpuscular Hemoglobin 29.4 pg (25-34); Mean Corpuscular Volume 89.2 fL (80-100); Mean Platelet Volume 9.7 fL (7.4-10.4); Monocytes # (auto) 0.52 K/uL (0.11-0.59); Neutrophils # (auto) 5.34 K/uL (1.4-6.5); Neutrophils % (auto) 72.1 %; Platelet Count 149 K/uL (130-400); RDW Coefficient of Variation 13.7 % (11.5-14.5); RDW Standard Deviation 45.1 fL (36.4-46.3); Red Blood Count 4.35 M/uL (4.2-5.4); White Blood Count 7.41 K/uL (4.8-10.8)
[2020-11-14 07:02] LABS: BUN Creatinine Ratio 12.2 (10-20); Calcium 8.9 mg/dl (8.5-10.1); Creatinine Clr Calc Pharmacy 17.3 ml/min; Est GFR (African American) 17.3 ml/min; Est GFR (Non-African American) 14.9 ml/min; Potassium 3.8 mmol/L (3.5-5.1)
[2020-11-14 07:05] LABS: Bilirubin,Total 1.3 mg/dl (0.2-1)
[2020-11-14] MEDS: APIXABAN 2.5 MG TAB PO SCH (08:01)
[2020-11-14] MEDS: INSULIN ASPART 100 UNITS/ML 3 ML PEN SC SCH ×5 (08:46→20:08)
[2020-11-14] MEDS: PIPERACILLIN/TAZOBACTAM 4.5 GM in DEXTROSE 5% 100 ML IV SCH ×2 (10:41→21:07)
[2020-11-14] MEDS: PANTOprazole 40 MG in SYRINGE 0 ML IV SCH (10:41)
--- NOTE | 2020-11-14 10:43 | Gastrointestinal Consultation ---
Date of Consultation November 14, 2020 Assessment & Plan (1) Ileitis: (2) Abdominal pain: Pt is a 75 y.o. female admitted with severe abdominal pain in the periumbilical region with abnormal CT imaging suggestive of ileitis and bowel dilation without obstruction. Denies NSAID use and no diarrhea which would be typically seen in the setting of infectious gastroenteritis. She has never undergone a prior colonoscopy. 1. Clear liquids for now. 2. Plan for bowel preparation tomorrow evening. 3. Diagnostic colonoscopy with Dr. Guido. 4. Rest per primary team. Thank you for allowing us to participate in the care of this pleasant patient. If you have any questions or concerns, please do not hesitate to contact us. Supervising Physician Co-Signing Physician Notes I personally evaluated the patient and agree with the findings as documented by COOPER Crawford Exam: abd: soft, mild LLQ tenderness, nd colonoscopy on 11/16 to evaluate further. History of Present Illness Reason for Consultation: Ileitis Requesting Physician: Johan Peres PA-C Attending Physician: Gaston Grullon DO History of Present Illness Patient is a very pleasant 75 y.o. female with a history of COPD, CKD, DIAMOND, HLD, HTN and recently diagnosed endometrial CA admitted with an acute onset of periumbilical pain which began two days ago. She states the pain was very sharp and associated with bloating and belching and caused increased shortness of breath. The pain radiates into her back. There is associated nausea and vomiting x 1 this morning. No fevers. +Chills. No overt GIB sx. Bowel movements are malachi cribed as regular every 1-2 days. No diarrhea. Due to the pain severity, she was brought to the ER by her grandson. CT a/p was obtained and noted for nonspecific ileitis without obstruction. The pains continue to wax and wane and improve with belching and analgesics. She remains on a clear liquid diet. She has no history of NSAID use. No family history of IBD or GI malignancy. She remains hemodyna mically stable. Allergies Allergy/AdvReac Type Severity Reaction Status Date / Time aspirin Allergy Intermediate HIVES Verified 11/12/20 08:54 Iodinated Contrast Media Allergy Intermediate HIVES - Verified 11/12/20 08:54 MRI DYE levofloxacin Allergy Intermediate HIVES, Verified 11/12/20 08:54 VEIN IRRITATION W/IV LEVAQUIN erythromycin base Allergy Unknown UNKNOWN Verified 11/12/20 08:54 Home Medications Medication Instructions Recorded Confirmed Type lancing device #1 ea 07/30/19 11/06/20 Rx nystatin 100,000 unit/gram topical 1 applic TOPICAL BID #60 g 01/24/20 11/12/20 Rx powder metoprolol succinate 25 mg 25 mg PO QAM #90 tab 02/24/20 11/12/20 Rx tablet,extended release 24 hr insulin glargine 100 unit/mL (3 5 unit SUBCUT HS #15 ml 06/21/20 11/12/20 Rx mL) subcutaneous pen apixaban 2.5 mg tablet 2.5 mg PO BID #60 tab 07/14/20 11/12/20 Rx cholecalciferol (vitamin D3) 25 mcg PO QAM 08/13/20 11/12/20 History [Vitamin D3] furosemide 40 mg tablet 40 mg PO .COMPLEX #180 tab 08/23/20 11/12/20 Rx atorvastatin 40 mg tablet 40 mg PO HS #90 tab 09/11/20 11/12/20 Rx blood sugar diagnostic #100 ea 09/11/20 11/06/20 Rx blood-glucose meter #1 ea 09/11/20 11/06/20 Rx escitalopram oxalate 10 mg tablet 10 mg PO QAM #90 tab 09/11/20 11/12/20 Rx lancets #102 ea 09/11/20 11/06/20 Rx lancets 30 gauge #200 ea 09/11/20 11/06/20 Rx pantoprazole 40 mg tablet,delayed 40 mg PO BID #60 tab 09/19/20 11/12/20 Rx release Patient History Medical History Aortic valve disorder Beta shayne toxicity Cellulitis COPD (chronic obstructive pulmonary disease) COPD with acute exacerbation CVA (cerebral vascular accident) (11/23/10) Esophageal dysmotility Hematuria History of - coronary artery bypass grafting (11/23/10) 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) IUD surveillance Mild acid reflux Obstructive sleep apnea Olecranon bursitis of right elbow Post-menopausal bleeding Repair of aortic valve with tissue graft (11/23/10) Urge incontinence of urine Vaginal bleeding Surgical History H/O aortic valve replacement 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 History of aortic aneurysm repair Hx of CABG CABG x1 (PACHECO TO LAD for LV hypokinesis-not CAD-- Done at the time of AVR and aortic root graft) 2002 Family History Mother Diabetes Myocardial infarction Sister Diabetes Son Hypertension Denies family history of Ovarian cancer Prostate cancer Breast cancer Lung cancer Colorectal cancer Cancer Social History Smoking Status: Never smoker Second Hand Exposure: No; Hx Alcohol Use: No Hx Substance Use: No Preferred Language: Peruvian Communication Ability: Effective Clinical Appeals Specialist Required: No Beliefs That Will Affect Care: None marital status: / Current Living Situation: Family current occupational status: disabled Feels Safe at Home: Yes Safety Concerns: Feels Safe At This Time caffeine: Yes (soda) Dental Care, Regularly: No Physical Activity Frequency: Daily Seatbelt Use: sometimes Sunscreen Use: No Assistive Devices: Oxygen - Continuous Review of Systems Constitutional: + chills and + fatigue; no fever Eyes: no problem reported Respiratory: + dyspnea and + dyspnea on exertion Cardiovascular: no chest pain and no palpitations Gastrointestinal: as per Subjective / HPI Musculoskeletal: + swelling Integumentary: + rash and + pruritus Physical Exam Constitutional: WD/WN, vitals as above well developed and well nourished Eyes: EOM intact bilaterally Respiratory: + labored breathing Auscultation: + rhonchi and + wheezes Cardiovascular: Rate/Rhythm: regular rate and regular rhythm Gastrointestinal (Abdomen): Inspection/Auscultation: normal bowel sounds Percussion/Palpation: + abdomen tender (periumbilical region) and abdomen soft Psychiatric: A+Ox3, euthymic affect Results & Data ([facility]) Vital Signs (Past 12 Hours) Vital Signs Temp Pulse Pulse Resp BP Pulse Ox 11/14/20 07:39 57 L 11/14/20 07:29 37.0 C 60 18 103/64 90 11/14/20 04:38 36.5 C 64 18 105/63 91 11/14/20 04:14 70 11/14/20 02:48 74 29 H 93 11/13/20 22:55 60 20 101/62 94 Laboratory Results Abnormal lab results 11/13/20 11/13/20 11/14/20 Range/Units 11:46 16:03 06:07 BUN 36 H (7-18) mg/dl Creatinine 2.91 H (0.6-1.2) mg/dl Glucose 123 H (70-99) mg/dl POC Glucose 140 H 225 H (70-99) mg/dl Total Bilirubin 1.3 H (0.2-1) mg/dl Alkaline Phosphatase 121 H (45-117) U/L Total Protein 6.0 L (6.4-8.2) gm/dl Albumin 3.0 L (3.4-5.0) gm/dl 11/14/20 Range/Units 08:45 BUN (7-18) mg/dl Creatinine (0.6-1.2) mg/dl Glucose (70-99) mg/dl POC Glucose 158 H (70-99) mg/dl Total Bilirubin (0.2-1) mg/dl Alkaline Phosphatase (45-117) U/L Total Protein (6.4-8.2) gm/dl Albumin (3.4-5.0) gm/dl PG Care Time/CCT Total # of Minutes Spent Total Time Spent with Patient: Total time spent is greater than 50% in coordination of care (as documented) at patient's floor/unit and/or counseling patient: Coding Level of Care Code 33197 Initial Inpt Care Lvl 3 Diagnoses Ileitis K52.9 Abdominal pain R10.9 Abdominal location: unspecified location (1) Abdominal pain Abdominal location: unspecified location Qualified Code(s): R10.9 - Unspecified abdominal pain
--- NOTE | 2020-11-14 21:28 | Hospitalist Progress Note ---
Date of Service November 14, 2020 Assessment & Plan (1) Acute kidney injury: SUSSY on CKD stage IV Cr rising to 2.9 from 2.8 K is stable continue LR and avoid nephrotoxins, she is making urine repeat BMP in the morning, anticipating Cr has plateaued (2) Ileitis: pain is better, no N/V, no fever, no diarrhea continue Zosyn every 8 hours allow clear liquid diet continue Lactated Ringer's at 75 mL/h. Patient with AVR so be judicious with fluids Consult gastroenterology for ileitis and elevated bilirubin - plan for bowel prep tomorrow and colonoscopy on 11/16 will hold Eliquis starting this evening, last dose was morning 11/14 (3) Chronic kidney disease, stage 4 (severe): as above, Cr up to 2.9 today, K is 3.8 Gentle hydration for now with lactated Ringer's at 75 mL/h stop fluids tomorrow BMP in AM (4) Obstructive sleep apnea: Patient reportedly has CPAP machine at home but is noncompliant for the last 2 years In the emergency department patient had episode of apnea with hypoxia to 77% with sleep While awake patient had SaO2 in the mid 90s on room air CPAP at 8 cm of water at night. Hold for abdominal distention or increased pain Supplemental oxygen via nasal cannula 2 L/min (5) COPD (chronic obstructive pulmonary disease): No evidence of pulmonary function testing Patient is not on any outpatient inhalers Continue to monitor for hypoxia No history of tobacco abuse or secondhand smoke exposure Check a chest x-ray for hypoxia Follow clinically (6) Coronary artery disease: History of CABG and aortic valve replacement at [facility] Continue Eliquis 2.5 mg p.o. twice daily Hold Lasix at this time and administer as needed Left ventricular ejection fraction of 25 to 30% Pacemaker is in place Patient is allergic to aspirin (rash and urticaria) Hold statin medication for now as patient is n.p.o. (7) CHF (congestive heart failure), NYHA class III: LVEF 25 to 30% continue to hold Lasix No indication for repeat echocardiogram at this time We will follow patient on medical telemetry (8) Diabetes mellitus type 2 in obese: Patient typically uses Lantus 5 units at bedtime with no other coverage Hemoglobin A1c in August was 8.5 NovoLog sliding scale insulin Follow BSG's - monitor for hypoglycemia, no episodes (9) Endometrial cancer, grade I: IUD is in place Patient reports no vaginal bleeding Outpatient management (10) Esophageal dysmotility: GI consulted for ileitis and elevated bilirubin Patient denies any acute complaints (11) Hyperlipidemia: Hold statin for now as patient is n.p.o. (12) Hypertension: Home meds include Toprol-XL 25 mg daily Hemodynamically stable Monitor on telemetry (13) Vitamin D deficiency: Hold vitamin D supplement at this time Resume as patient improves (14) DVT prophylaxis: holding Eliquis Ambulate as tolerated Admission and Anticipated Discharge Date Admission Date: November 12, 2020 Subjective tolerating liquid diet, no nausea, no BM today, still has RLQ pain d/w GI, appreciate their input, plan for colonoscopy with examination of terminal ileum on no fever, no dyspnea, no chest pain Cr up to 2.9 from 2.8, electrolytes stable updated her daughter at the bedside will hold Eliquis with planned scope Review of Systems Review of Systems: All systems reviewed & are unremarkable except as noted in Subjective Physical Exam Constitutional: well developed, well nourished and + obese; no acute distress Neck: trachea midline, no thyromegaly + thick neck Respiratory: normal respiratory effort, lungs clear to auscultation Cardiovascular: RRR, no murmur, no edema Gastrointestinal (Abdomen): Inspection/Auscultation: abdomen normal to inspection and normal bowel sounds; abdomen not distended Percussion/Palpation: + abdomen tender (RLQ), abdomen soft and normal to percussion Musculoskeletal: no cyanosis or clubbing, extremities motor strength 5/5 Skin: no rashes, warm and dry Neurologic: patellar DTR's 2+ bilat, sensation intact and PERRL, EOMI, accommodation nl, no face palsy, no dysarthria Psychiatric: A+Ox3, euthymic affect Lymphatic: no cervical or axillary lymphadenopathy Results & Data Results & Data ([facility]) Vital Signs (Past 12 Hours) Vital Signs Temp Pulse Pulse Resp BP Pulse Ox 11/14/20 18:49 36.5 C 64 18 113/72 97 11/14/20 15:27 36.5 C 67 20 115/69 100 11/14/20 14:19 64 Laboratory Results Laboratory Results - last 24 hr 11/14/20 11/14/20 11/14/20 06:07 06:07 08:45 WBC 7.41 RBC 4.35 Hgb 12.8 Hct 38.8 MCV 89.2 MCH 29.4 MCHC 33.0 RDW Std Deviation 45.1 RDW Coeff of Chriss 13.7 Plt Count 149 MPV 9.7 Immature Gran % (Auto) 0.1 Neut % (Auto) 72.1 Lymph % (Auto) 18.1 [place] % (Auto) 7.0 Eos % (Auto) 2.6 Baso % (Auto) 0.1 Neut # (Auto) 5.34 Lymph # (Auto) 1.34 [place] # (Auto) 0.52 Eos # (Auto) 0.19 Baso # (Auto) 0.01 Immature Gran # (Auto) 0.01 Sodium 137 Potassium 3.8 Chloride 102 Carbon Dioxide 32 Anion Gap 3.0 BUN 36 H Creatinine 2.91 H Est Cr Clr Drug Dosing 17.3 Est GFR ( Amer) 17.3 Est GFR (Non-Af Amer) 14.9 BUN/Creatinine Ratio 12.2 Glucose 123 H POC Glucose 158 H Calcium 8.9 Total Bilirubin 1.3 H AST 27 ALT 31 Alkaline Phosphatase 121 H Total Protein 6.0 L Albumin 3.0 L Globulin 3.0 Albumin/Globulin Ratio 1.0 11/14/20 11/14/20 11/14/20 11:29 16:46 20:01 WBC RBC Hgb Hct MCV MCH MCHC RDW Std Deviation RDW Coeff of Chriss Plt Count MPV Immature Gran % (Auto) Neut % (Auto) Lymph % (Auto) [place] % (Auto) Eos % (Auto) Baso % (Auto) Neut # (Auto) Lymph # (Auto) [place] # (Auto) Eos # (Auto) Baso # (Auto) Immature Gran # (Auto) Sodium Potassium Chloride Carbon Dioxide Anion Gap BUN Creatinine Est Cr Clr Drug Dosing Est GFR ( Amer) Est GFR (Non-Af Amer) BUN/Creatinine Ratio Glucose POC Glucose 214 H 119 H 169 H Calcium Total Bilirubin AST ALT Alkaline Phosphatase Total Protein Albumin Globulin Albumin/Globulin Ratio Medications Administered Current Inpatient Medications Dextrose (Dextrose 50% 50 Ml Syringe) 25 - 50 ml IV UD PRN; Protocol PRN Reason: Hypoglycemia Protocol Stop: 12/12/20 12:37 Glucagon (Glucagon For Inj 1 Mg Vial) 1 mg SQ UD PRN; Protocol PRN Reason: Hypoglycemia Protocol Stop: 12/12/20 12:37 Glucose (Glucose 10 Tabs/Tube) 4 - 8 tabs PO UD PRN; Protocol PRN Reason: Hypoglycemia Protocol Stop: 12/12/20 12:37 Glucose (Glucose 40% Gel 15 Gm Tube) 15 - 30 gm PO UD PRN; Protocol PRN Reason: Hypoglycemia Protocol Stop: 12/12/20 12:37 Hydromorphone HCl (Hydromorphone Inj 0.5 Mg/0.5 Ml Syr) 0.5 mg IV Q4H PRN PRN Reason: Pain Stop: 11/26/20 12:37 Last Admin: 11/14/20 02:28 Dose: 0.5 mg Documented by: Lactated Ringer's (Lr) 1,000 mls @ 75 mls/hr IV .[id number] [facility] Stop: 12/12/20 11:44 Last Admin: 11/14/20 13:13 Dose: 75 mls/hr Documented by: Pantoprazole Sodium 40 mg/ (Syringe) 10 mls @ 5 mls/min IV DAILY@1100 [facility] Stop: 12/13/20 10:59 Last Admin: 11/14/20 10:41 Dose: 5 mls/min Documented by: Piperacillin Sod/Tazobactam (Sod 4.5 gm/ Dextrose) 120 mls @ 30 mls/hr IV Q12H [facility]; Protocol Stop: 11/22/20 21:59 Last Admin: 11/14/20 21:07 Dose: 30 mls/hr Documented by: Insulin Aspart (Insulin Aspart 100 Units/Ml 3 Ml Pen) 0 units SC ACHS [facility] Stop: 12/14/20 07:59 Last Admin: 11/14/20 20:08 Dose: Not Given Documented by: Ketorolac Tromethamine (Ketorolac Tromethamine 15 Mg/Ml Vial) 15 mg IV Q6H PRN PRN Reason: Pain Stop: 11/17/20 12:37 Last Admin: 11/14/20 15:05 Dose: 15 mg Documented by: Miscellaneous (Carbohydrates For Hypoglycemia ) 15 - 30 gm PO UD PRN PRN Reason: Hypoglycemia Protocol Stop: 12/12/20 12:37 Miscellaneous Information (Piperacill/Tazobac Consult Active) 1 ea N/A UD PRN PRN Reason: Consult Stop: 12/12/20 12:37 Ondansetron HCl (Ondansetron Inj 2 Mg/Ml 2 Ml Vial) 4 mg IV Q6H PRN PRN Reason: Nausea Stop: 12/12/20 12:37 Last Admin: 11/13/20 13:45 Dose: 4 mg Documented by: PG Care Time/CCT Total # of Minutes Spent Total Time Spent with Patient: Total time spent is greater than 50% in coordination of care (as documented) at patient's floor/unit and/or counseling patient: Coding Level of Care Code 34079 Subseq Hosp Care Lvl 3 Diagnoses Acute kidney injury N17.9 Ileitis K52.9 Chronic kidney disease, stage 4 (severe) N18.4 Obstructive sleep apnea G47.33 COPD (chronic obstructive pulmonary disease) J44.9 Coronary artery disease I25.10 Coronary Disease-Associated Artery/Lesion type: [place] artery [place] vs. transplanted heart: ch[place] heart Associated angina: without angina CHF (congestive heart failure), NYHA class III I50.23 Congestive heart failure type: systolic Congestive heart failure chronicity: acute on chronic Diabetes mellitus type 2 in obese E11.69; E66.9 Endometrial cancer, grade I C54.1 Esophageal dysmotility K22.4 Hyperlipidemia E78.5 Hyperlipidemia type: unspecified Hypertension I10 Hypertension type: essential hypertension Vitamin D deficiency E55.9 DVT prophylaxis Z29.9 (1) Coronary artery disease Coronary Disease-Associated Artery/Lesion type: [place] artery [place] vs. transplanted heart: [place] heart Associated angina: without angina Qualified Code(s): I25.10 - Atherosclerotic heart disease of [place] coronary artery without angina pectoris (2) CHF (congestive heart failure), NYHA class III Congestive heart failure type: systolic Congestive heart failure chronicity: acute on chronic Qualified Code(s): I50.23 - Acute on chronic systolic (congestive) heart failure (3) Hyperlipidemia Hyperlipidemia type: unspecified Qualified Code(s): E78.5 - Hyperlipidemia, unspecified (4) Hypertension Hypertension type: essential hypertension Qualified Code(s): I10 - Essential (primary) hypertension
[2020-11-15] MEDS: LACTATED RINGER'S 1,000 ML IV SCH (02:17)
[2020-11-15 07:45] LABS: Basophils # (auto) 0.02 K/uL (0-0.2); Basophils % (auto) 0.3 %; Eosinophils # (auto) 0.23 K/uL (0-0.5); Eosinophils % (auto) 3.7 %; Hematocrit (blood only) 39.7 % (37-47); Hemoglobin 12.9 g/dL (12.0-16.0); Immature Granulocytes # (auto) 0.01 K/uL (0.00-0.02); Immature Granulocytes % (auto) 0.2 %; Lymphocytes # (auto) 1.59 K/uL (1.2-3.4); Lymphocytes % (auto) 25.2 %; Mean Corpuscular Hemoglobin 29.7 pg (25-34); Mean Corpuscular Hgb Conc 32.5 g/dL (32-36); Mean Corpuscular Volume 91.3 fL (80-100); Mean Platelet Volume 9.8 fL (7.4-10.4); Monocytes # (auto) 0.46 K/uL (0.11-0.59); Monocytes % (auto) 7.3 %; Neutrophils # (auto) 3.99 K/uL (1.4-6.5); Neutrophils % (auto) 63.3 %; Platelet Count 153 K/uL (130-400); RDW Coefficient of Variation 13.8 % (11.5-14.5); RDW Standard Deviation 46.2 fL (36.4-46.3); Red Blood Count 4.35 M/uL (4.2-5.4)
[2020-11-15 08:15] LABS: Albumin Level 3.1 gm/dl (3.4-5.0); BUN Creatinine Ratio 10.9 (10-20); Calcium 8.5 mg/dl (8.5-10.1); Creatinine Clr Calc Pharmacy 19.6 ml/min; Est GFR (African American) 20.2 ml/min; Est GFR (Non-African American) 17.4 ml/min; Potassium 3.5 mmol/L (3.5-5.1)
[2020-11-15 08:18] LABS: Albumin Globulin Ratio 1.1 (0.9-2); Globulin 2.9 gm/dl (2.5-4.0)
[2020-11-15] MEDS: INSULIN ASPART 100 UNITS/ML 3 ML PEN SC SCH ×4 (08:27→20:24)
--- NOTE | 2020-11-15 10:11 | Hospitalist Progress Note ---
Date of Service November 15, 2020 Assessment & Plan (1) Acute kidney injury: SUSSY on CKD stage IV Cr ema to 2.9, today it is down to 2.5 K is stable stop fluids today, allow clear liquids will hold on Lasix for now as she will get bowel prep tonight anticipate resuming Lasix on Friday 11/17 (2) Ileitis: pain is better today after having several loose stools continue Zosyn every 8 hours, WBC is normal allow clear liquid diet stop fluids Consult gastroenterology for ileitis and elevated bilirubin - plan for bowel prep tonight and colonoscopy on 11/16 will hold Eliquis, last dose was morning 11/14 (3) Chronic kidney disease, stage 4 (severe): as above, Cr down to 2.56 stop fluids today BMP in AM (4) Obstructive sleep apnea: Patient reportedly has CPAP machine at home but is noncompliant for the last 2 years In the emergency department patient had episode of apnea with hypoxia to 77% with sleep While awake patient had SaO2 in the mid 90s on room air CPAP at 8 cm of water at night. Hold for abdominal distention or increased pain Supplemental oxygen via nasal cannula 2 L/min (5) COPD (chronic obstructive pulmonary disease): No evidence of pulmonary function testing Patient is not on any outpatient inhalers Continue to monitor for hypoxia No history of tobacco abuse or secondhand smoke exposure Check a chest x-ray for hypoxia Follow clinically (6) Coronary artery disease: History of CABG and aortic valve replacement at [facility] Continue Eliquis 2.5 mg p.o. twice daily Hold Lasix at this time and administer as needed Left ventricular ejection fraction of 25 to 30% Pacemaker is in place Patient is allergic to aspirin (rash and urticaria) Hold statin medication for now as patient is n.p.o. (7) CHF (congestive heart failure), NYHA class III: LVEF 25 to 30% continue to hold Lasix, likely resume 11/17 No indication for repeat echocardiogram at this time We will follow patient on medical telemetry (8) Diabetes mellitus type 2 in obese: Patient typically uses Lantus 5 units at bedtime with no other coverage Hemoglobin A1c in August was 8.5 NovoLog sliding scale insulin Follow BSG's - monitor for hypoglycemia, no episodes today (9) Endometrial cancer, grade I: IUD is in place Patient reports no vaginal bleeding Outpatient management (10) Esophageal dysmotility: GI consulted for ileitis and elevated bilirubin Patient denies any acute complaints (11) Hyperlipidemia: Hold statin for now as patient is n.p.o. (12) Hypertension: Home meds include Toprol-XL 25 mg daily Hemodynamically stable Monitor on telemetry (13) Vitamin D deficiency: Hold vitamin D supplement at this time Resume as patient improves (14) DVT prophylaxis: holding Eliquis Ambulate as tolerated Admission and Anticipated Discharge Date Admission Date: November 12, 2020 Subjective reviewed labs, Cr improved to 2.56 from 2.9, will stop the LR today, allow clear liquid diet plan for bowel prep this evening and colonoscopy tomorrow WBC, Hb and plts normal, K is 3.5 patient is having some loose stools but she says it is making her feel better, no nausea she plans to get up into the chair today no dyspnea, no chest pain, no fever, no cough Review of Systems Review of Systems: All systems reviewed & are unremarkable except as noted in Subjective Respiratory: no cough and no dyspnea Cardiovascular: no chest pain and no edema Gastrointestinal: + abdominal pain (RLQ, mild) and + diarrhea/loose stools; no nausea, no vomiting, no constipation, no blood in stools and no melena Physical Exam Constitutional: well developed, well nourished and + obese; no acute distress Neck: trachea midline, no thyromegaly + thick neck Respiratory: normal respiratory effort, lungs clear to auscultation Cardiovascular: RRR, no murmur, no edema Gastrointestinal (Abdomen): normal bowel sounds, soft, nontender, no hepatosplenomegaly Inspection/Auscultation: abdomen normal to inspection and normal bowel sounds; abdomen not distended Percussion/Palpation: + abdomen tender (RLQ), abdomen soft and normal to percussion Musculoskeletal: no cyanosis or clubbing, extremities motor strength 5/5 Skin: no rashes, warm and dry Neurologic: patellar DTR's 2+ bilat, sensation intact and PERRL, EOMI, accommodation nl, no face palsy, no dysarthria Psychiatric: A+Ox3, euthymic affect Lymphatic: no cervical or axillary lymphadenopathy Results & Data Results & Data ([facility]) Vital Signs (Past 12 Hours) Vital Signs Temp Pulse Pulse Resp BP BP Pulse Ox 11/15/20 08:41 60 11/15/20 07:56 36.2 C L 63 20 143/85 H 100 11/15/20 02:39 70 18 95 11/15/20 02:29 59 L 18 136/82 99 11/14/20 22:51 60 20 124/77 99 11/14/20 22:20 60 Laboratory Results Laboratory Results - last 24 hr 11/14/20 11/14/20 11/14/20 11:29 16:46 20:01 WBC RBC Hgb Hct MCV MCH MCHC RDW Std Deviation RDW Coeff of Chriss Plt Count MPV Immature Gran % (Auto) Neut % (Auto) Lymph % (Auto) [place] % (Auto) Eos % (Auto) Baso % (Auto) Neut # (Auto) Lymph # (Auto) [place] # (Auto) Eos # (Auto) Baso # (Auto) Immature Gran # (Auto) Sodium Potassium Chloride Carbon Dioxide Anion Gap BUN Creatinine Est Cr Clr Drug Dosing Est GFR ( Amer) Est GFR (Non-Af Amer) BUN/Creatinine Ratio Glucose POC Glucose 214 H 119 H 169 H Calcium Total Bilirubin AST ALT Alkaline Phosphatase Total Protein Albumin Globulin Albumin/Globulin Ratio 11/15/20 11/15/20 11/15/20 07:24 07:28 07:28 WBC 6.30 RBC 4.35 Hgb 12.9 Hct 39.7 MCV 91.3 MCH 29.7 MCHC 32.5 RDW Std Deviation 46.2 RDW Coeff of Chriss 13.8 Plt Count 153 MPV 9.8 Immature Gran % (Auto) 0.2 Neut % (Auto) 63.3 Lymph % (Auto) 25.2 [place] % (Auto) 7.3 Eos % (Auto) 3.7 Baso % (Auto) 0.3 Neut # (Auto) 3.99 Lymph # (Auto) 1.59 [place] # (Auto) 0.46 Eos # (Auto) 0.23 Baso # (Auto) 0.02 Immature Gran # (Auto) 0.01 Sodium 141 Potassium 3.5 Chloride 105 Carbon Dioxide 31 Anion Gap 5.0 BUN 28 H Creatinine 2.56 H D Est Cr Clr Drug Dosing 19.6 Est GFR ( Amer) 20.2 Est GFR (Non-Af Amer) 17.4 BUN/Creatinine Ratio 10.9 Glucose 121 H POC Glucose 99 Calcium 8.5 Total Bilirubin 1.0 AST 25 ALT 26 Alkaline Phosphatase 112 Total Protein 6.0 L Albumin 3.1 L Globulin 2.9 Albumin/Globulin Ratio 1.1 Medications Administered Current Inpatient Medications Dextrose (Dextrose 50% 50 Ml Syringe) 25 - 50 ml IV UD PRN; Protocol PRN Reason: Hypoglycemia Protocol Stop: 12/12/20 12:37 Glucagon (Glucagon For Inj 1 Mg Vial) 1 mg SQ UD PRN; Protocol PRN Reason: Hypoglycemia Protocol Stop: 12/12/20 12:37 Glucose (Glucose 10 Tabs/Tube) 4 - 8 tabs PO UD PRN; Protocol PRN Reason: Hypoglycemia Protocol Stop: 12/12/20 12:37 Glucose (Glucose 40% Gel 15 Gm Tube) 15 - 30 gm PO UD PRN; Protocol PRN Reason: Hypoglycemia Protocol Stop: 12/12/20 12:37 Hydromorphone HCl (Hydromorphone Inj 0.5 Mg/0.5 Ml Syr) 0.5 mg IV Q4H PRN PRN Reason: Pain Stop: 11/26/20 12:37 Last Admin: 11/14/20 02:28 Dose: 0.5 mg Documented by: Pantoprazole Sodium 40 mg/ (Syringe) 10 mls @ 5 mls/min IV DAILY@1100 [facility] Stop: 12/13/20 10:59 Last Admin: 11/15/20 10:23 Dose: 5 mls/min Documented by: Piperacillin Sod/Tazobactam (Sod 4.5 gm/ Dextrose) 120 mls @ 30 mls/hr IV Q12H [facility]; Protocol Stop: 11/22/20 21:59 Last Admin: 11/15/20 10:23 Dose: 30 mls/hr Documented by: Insulin Aspart (Insulin Aspart 100 Units/Ml 3 Ml Pen) 0 units SC ACHS [facility] Stop: 12/14/20 07:59 Last Admin: 11/15/20 08:27 Dose: 3 units Documented by: Ketorolac Tromethamine (Ketorolac Tromethamine 15 Mg/Ml Vial) 15 mg IV Q6H PRN PRN Reason: Pain Stop: 11/17/20 12:37 Last Admin: 11/14/20 15:05 Dose: 15 mg Documented by: Miscellaneous (Carbohydrates For Hypoglycemia ) 15 - 30 gm PO UD PRN PRN Reason: Hypoglycemia Protocol Stop: 12/12/20 12:37 Miscellaneous Information (Piperacill/Tazobac Consult Active) 1 ea N/A UD PRN PRN Reason: Consult Stop: 12/12/20 12:37 Ondansetron HCl (Ondansetron Inj 2 Mg/Ml 2 Ml Vial) 4 mg IV Q6H PRN PRN Reason: Nausea Stop: 12/12/20 12:37 Last Admin: 11/13/20 13:45 Dose: 4 mg Documented by: Polyethylene Glycol (Polyethylene (Miralax) 17 Gm Pack) 119 gm PO 1800 [place] Stop: 11/15/20 23:00 Polyethylene Glycol (Polyethylene (Miralax) 17 Gm Pack) 119 gm PO 0300 [place] Stop: 11/16/20 06:00 PG Care Time/CCT Total # of Minutes Spent Total Time Spent with Patient: Total time spent is greater than 50% in coordination of care (as documented) at patient's floor/unit and/or counseling patient: Coding Level of Care Code 42098 Subseq Hosp Care Lvl 3 Diagnoses Acute kidney injury N17.9 Ileitis K52.9 Chronic kidney disease, stage 4 (severe) N18.4 Obstructive sleep apnea G47.33 COPD (chronic obstructive pulmonary disease) J44.9 Coronary artery disease I25.10 Coronary Disease-Associated Artery/Lesion type: [place] artery [place] vs. transplanted heart: [place] heart Associated angina: without angina CHF (congestive heart failure), NYHA class III I50.23 Congestive heart failure type: systolic Congestive heart failure chronicity: acute on chronic Diabetes mellitus type 2 in obese E11.69; E66.9 Endometrial cancer, grade I C54.1 Esophageal dysmotility K22.4 Hyperlipidemia E78.5 Hyperlipidemia type: unspecified Hypertension I10 Hypertension type: essential hypertension Vitamin D deficiency E55.9 DVT prophylaxis Z29.9 (1) Coronary artery disease Coronary Disease-Associated Artery/Lesion type: [place] artery [place] vs. transplanted heart: [place] heart Associated angina: without angina Qualified Code(s): I25.10 - Atherosclerotic heart disease of [place] coronary artery without angina pectoris (2) CHF (congestive heart failure), NYHA class III Congestive heart failure type: systolic Congestive heart failure chronicity: acute on chronic Qualified Code(s): I50.23 - Acute on chronic systolic (congestive) heart failure (3) Hyperlipidemia Hyperlipidemia type: unspecified Qualified Code(s): E78.5 - Hyperlipidemia, unspecified (4) Hypertension Hypertension type: essential hypertension Qualified Code(s): I10 - Essential (primary) hypertension
--- NOTE | 2020-11-15 10:17 | Gastroenterology Progress Note ---
Date of Service November 15, 2020 Assessment & Plan (1) Ileitis: (2) Abdominal pain: Pt is a 75 y.o. female admitted with severe abdominal pain in the periumbilical region with abnormal CT imaging suggestive of ileitis and bowel dilation without obstruction. Denies NSAID use and no diarrhea which would be typically seen in the setting of infectious gastroenteritis. She has never undergone a prior colonoscopy. 1. Clear liquids today and NPO post midnight except sips with medications. 2. Plan for split dose bowel preparation starting at 1800. 3. Diagnostic colonoscopy tomorrow with Dr. Guido. 4. Rest per primary team. Thank you for allowing us to participate in the care of this pleasant patient. If you have any questions or concerns, please do not hesitate to contact us. Admission and Anticipated Discharge Date Admission Date: November 12, 2020 Subjective Patient reports she is having less abdominal pain today. Passed several small caliber and loose stools this morning. She remains hemodynamically stable. Review of Systems Constitutional: no fever and no chills Respiratory: + dyspnea on exertion Cardiovascular: no chest pain Gastrointestinal: as per Subjective / HPI Physical Exam Constitutional: WD/WN, vitals as above well developed and well nourished Respiratory: Auscultation: + wheezes Cardiovascular: Rate/Rhythm: regular rate and regular rhythm Gastrointestinal (Abdomen): Inspection/Auscultation: normal bowel sounds Percussion/Palpation: abdomen soft; abdomen nontender Psychiatric: A+Ox3, euthymic affect Results & Data Results & Data ([facility]) Vital Signs (Past 12 Hours) Vital Signs Temp Pulse Pulse Resp BP BP Pulse Ox 11/15/20 08:41 60 11/15/20 07:56 36.2 C L 63 20 143/85 H 100 11/15/20 02:39 70 18 95 11/15/20 02:29 59 L 18 136/82 99 11/14/20 22:51 60 20 124/77 99 11/14/20 22:20 60 Laboratory Results Abnormal lab results 11/14/20 11/14/20 11/14/20 Range/Units 11:29 16:46 20:01 BUN (7-18) mg/dl Creatinine (0.6-1.2) mg/dl Glucose (70-99) mg/dl POC Glucose 214 H 119 H 169 H (70-99) mg/dl Total Protein (6.4-8.2) gm/dl Albumin (3.4-5.0) gm/dl 11/15/20 Range/Units 07:28 BUN 28 H (7-18) mg/dl Creatinine 2.56 H D (0.6-1.2) mg/dl Glucose 121 H (70-99) mg/dl POC Glucose (70-99) mg/dl Total Protein 6.0 L (6.4-8.2) gm/dl Albumin 3.1 L (3.4-5.0) gm/dl PG Care Time/CCT Total # of Minutes Spent Total Time Spent with Patient: Total time spent is greater than 50% in coordination of care (as documented) at patient's floor/unit and/or counseling patient: Coding Level of Care Code 14633 Subseq Hosp Care Lvl 3 Diagnoses Ileitis K52.9 Abdominal pain R10.9 Abdominal location: unspecified location (1) Abdominal pain Abdominal location: unspecified location Qualified Code(s): R10.9 - Unspecified abdominal pain
[2020-11-15] MEDS: PANTOprazole 40 MG in SYRINGE 0 ML IV SCH (10:23)
[2020-11-15] MEDS: PIPERACILLIN/TAZOBACTAM 4.5 GM in DEXTROSE 5% 100 ML IV SCH ×2 (10:23→21:01)
[2020-11-15] MEDS ORDERED: POLYETHYLENE (MIRALAX) 17 GM PACK PO SCH (18:00)
[2020-11-16] MEDS ORDERED: POLYETHYLENE (MIRALAX) 17 GM PACK PO SCH (03:00)
[2020-11-16] MEDS: INSULIN ASPART 100 UNITS/ML 3 ML PEN SC SCH ×3 (06:04→18:43)
[2020-11-16 08:24] LABS: Hematocrit (blood only) 38.9 % (37-47); Mean Corpuscular Hemoglobin 29.6 pg (25-34); Mean Corpuscular Hgb Conc 33.4 g/dL (32-36); Mean Corpuscular Volume 88.6 fL (80-100); Mean Platelet Volume 9.9 fL (7.4-10.4); Platelet Count 154 K/uL (130-400); RDW Coefficient of Variation 13.4 % (11.5-14.5); RDW Standard Deviation 43.4 fL (36.4-46.3); Red Blood Count 4.39 M/uL (4.2-5.4); White Blood Count 7.66 K/uL (4.8-10.8)
[2020-11-16 08:48] LABS: BUN Creatinine Ratio 8.3 (10-20); Calcium 8.9 mg/dl (8.5-10.1); Creatinine Clr Calc Pharmacy 26.5 ml/min; Est GFR (African American) 27.7 ml/min; Est GFR (Non-African American) 23.9 ml/min; Potassium 3.1 mmol/L (3.5-5.1)
--- NOTE | 2020-11-16 09:41 | History & Physical Bridge Note ---
Date of Service November 16, 2020 History & Physical Bridge Note I have examined the patient, reviewed the History & Physical and in the interval since the performance of the History & Physical I have noted the following changes of clinical significance: no changes noted. Patient tolerated bowel preparation and states "I was up all night going to the bathroom". PE: Drowsy, Oriented x3. Lungs CTA bilaterally. RRR. Abdomen soft, hyperactive bowel sounds. Mild RLQ tenderness. A/P: RLQ pain and CT evidence of ileitis. * NPO. * Proceed with colonoscopy today with Dr. Guido. * Further recommendations pending results of testing.
[2020-11-16] MEDS: PIPERACILLIN/TAZOBACTAM 4.5 GM in DEXTROSE 5% 100 ML IV SCH (10:12)
--- NOTE | 2020-11-16 10:43 | Anesthesiology Consultation ---
Date of Service November 16, 2020 Assessment & Plan (1) Encounter for pre-operative examination: Chart Review Chart Review: Acceptable Risk for Surgery History Surgery Operation Date: 11/16/20 16:30 Proposed Procedures p Colonoscopy Dr. Lata Guido MD Height/Weight Height: 5 ft 1 in Weight: 104 kg Allergies Allergy/AdvReac Type Severity Reaction Status Date / Time aspirin Allergy Intermediate HIVES Verified 11/12/20 08:54 Iodinated Contrast Media Allergy Intermediate HIVES - Verified 11/12/20 08:54 MRI DYE levofloxacin Allergy Intermediate HIVES, Verified 11/12/20 08:54 VEIN IRRITATION W/IV LEVAQUIN erythromycin base Allergy Unknown UNKNOWN Verified 11/12/20 08:54 Medications Home Medications Medication Instructions Recorded Confirmed Last Taken lancing device #1 ea 07/30/19 11/06/20 Unknown nystatin 100,000 unit/gram topical 1 applic TOPICAL BID #60 g 01/24/20 11/12/20 11/11/20 powder metoprolol succinate 25 mg 25 mg PO QAM #90 tab 02/24/20 11/12/20 11/11/20 tablet,extended release 24 hr insulin glargine 100 unit/mL (3 5 unit SUBCUT HS #15 ml 06/21/20 11/12/20 11/11/20 mL) subcutaneous pen apixaban 2.5 mg tablet 2.5 mg PO BID #60 tab 07/14/20 11/12/20 11/11/20 cholecalciferol (vitamin D3) 25 mcg PO QAM 08/13/20 11/12/20 11/11/20 [Vitamin D3] furosemide 40 mg tablet 40 mg PO .COMPLEX #180 tab 08/23/20 11/12/20 11/11/20 atorvastatin 40 mg tablet 40 mg PO HS #90 tab 09/11/20 11/12/20 11/11/20 blood sugar diagnostic #100 ea 09/11/20 11/06/20 Unknown blood-glucose meter #1 ea 09/11/20 11/06/20 Unknown escitalopram oxalate 10 mg tablet 10 mg PO QAM #90 tab 09/11/20 11/12/20 11/11/20 lancets #102 ea 09/11/20 11/06/20 Unknown lancets 30 gauge #200 ea 09/11/20 11/06/20 Unknown pantoprazole 40 mg tablet,delayed 40 mg PO BID #60 tab 09/19/20 11/12/20 07/0 07/30 release Active Medications Generic Name Dose Route Start Last Admin Trade Name Gertrude PRN Reason Stop Dose Admin Hydromorphone HCl 0.5 mg 11/12/20 12:38 11/14/20 02:28 Hydromorphone Inj 0.5 Mg/0.5 Ml Syr IV 11/26/20 12:37 0.5 mg Q4H PRN Administration Pain Pantoprazole Sodium 40 mg/ 10 mls @ 5 mls/min 11/13/20 11:00 11/15/20 10:23 Syringe IV 12/13/20 10:59 5 mls/min DAILY@1100 [place] Administration Piperacillin Sod/Tazobactam 120 mls @ 30 mls/hr 11/13/20 22:00 11/16/20 10:12 Sod 4.5 gm/ Dextrose IV 11/22/20 21:59 30 mls/hr Q12H [place] Administration Protocol Insulin Aspart 0 units 11/16/20 06:00 11/16/20 06:04 Insulin Aspart 100 Units/Ml 3 Ml Pen SC 12/16/20 05:59 Not Given Q6 [place] Ketorolac Tromethamine 15 mg 11/12/20 12:38 11/14/20 15:05 Ketorolac Tromethamine 15 Mg/Ml Vial IV 11/17/20 12:37 15 mg Q6H PRN Administration Pain Ondansetron HCl 4 mg 11/12/20 12:38 11/13/20 13:45 Ondansetron Inj 2 Mg/Ml 2 Ml Vial IV 12/12/20 12:37 4 mg Q6H PRN Administration Nausea Past Medical History Medical History (Updated 11/16/20 @ 10:43 by Keenan Ford MD) AF (paroxysmal atrial fibrillation) Aortic valve disorder Beta shayne toxicity Biventricular ICD (implantable cardioverter-defibrillator) in place Cellulitis COPD (chronic obstructive pulmonary disease) COPD with acute exacerbation CVA (cerebral vascular accident) (11/23/10) Esophageal dysmotility Hematuria History of - coronary artery bypass grafting (11/23/10) 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) IUD surveillance Mild acid reflux Obstructive sleep apnea Olecranon bursitis of right elbow Post-menopausal bleeding Repair of aortic valve with tissue graft (11/23/10) Urge incontinence of urine Vaginal bleeding Past Family History Family History Mother Diabetes Myocardial infarction Sister Diabetes Son Hypertension Denies family history of Ovarian cancer Prostate cancer Breast cancer Lung cancer Colorectal cancer Cancer Past Surgical History Surgical History (Updated 11/16/20 @ 10:42 by Keenan Ford MD) H/O aortic valve replacement 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 History of aortic aneurysm repair History of implantable cardioverter-defibrillator (ICD) placement Hx of CABG CABG x1 (PACHECO TO LAD for LV hypokinesis-not CAD-- Done at the time of AVR and aortic root graft) 2003 Hx of cardiac pacemaker Social History Smoking Status: Never smoker Hx Alcohol Use: No Hx Substance Use: No substance use type: does not use Physical Exam Vital Signs Last Vital Signs Temp 36.8 C 11/16/20 07:38 Pulse 57 L 11/16/20 07:38 Resp 16 11/16/20 07:38 BP 123/66 11/16/20 07:38 Pulse Ox 100 11/16/20 07:38 Testing Laboratory Results 11/16/20 07:58 11/16/20 07:58 Hemoglobin A1c 9.2 % (4.5-5.6) H 11/13/20 06:30 Urine Color Yellow 11/13/20 06:20 Urine Appearance Clear (Clear) 11/13/20 06:20 Urine pH 5.0 (4.5-7.5) 11/13/20 06:20 Ur Specific [place] 1.024 (1.000-1.030) 11/13/20 06:20 Urine Protein Negative (Negative) 11/13/20 06:20 Urine Glucose (UA) Negative (Negative) 11/13/20 06:20 Urine Ketones Trace (Negative) H 11/13/20 06:20 Urine Nitrite Negative (Negative) 11/13/20 06:20 Ur Leukocyte Esterase Negative (Negative) 11/13/20 06:20 11/12/20 11:03 Aerobic Blood Culture - Preliminary Blood No growth in Aerobic bottle after 48 hours. Anaerobic Blood Culture - Preliminary No growth in Anaerobic bottle after 48 hours. 11/12/20 11:15 Aerobic Blood Culture - Preliminary Blood No growth in Aerobic bottle after 48 hours. Anaerobic Blood Culture - Preliminary No growth in Anaerobic bottle after 48 hours. 11/16/20 05:52 POC Glucose 106 H Electrocardiogram Date: 11/12/20 Findings: + AFIB @ (With paced ventricular rate of 69) Chest X-Ray Date: 11/12/20 Findings: + pulmonary vascular congestion (Mild, central) Echocardiogram Date: 12/23/19 EF: 25-30% properly functioning bioprosthetic AV
--- NOTE | 2020-11-16 12:40 | Anesthesiology Progress Note ---
Date of Service November 16, 2020 Anesthesia Post Procedure Vital Signs Vital Signs: Temp Pulse Pulse Resp BP BP Pulse Ox 11/16/20 12:29 69 16 101/55 L 100 11/16/20 10:50 36.3 C L 60 16 138/79 100 11/16/20 07:38 36.8 C 57 L 16 123/66 100 11/16/20 03:40 36.6 C 63 20 144/81 H 99 11/15/20 23:07 36.4 C L 60 20 133/87 99 11/15/20 22:20 61 11/15/20 19:09 36.2 C L 61 20 128/69 99 11/15/20 18:11 67 11/15/20 14:33 36.6 C 66 18 136/77 97 Pain Intensity Abdomen: Pain Intensity: 4 Bilateral Back: Pain Intensity: 0 Transfer of Care Handoff Completed per policy Notes Mental Status: alert / awake / arousable Patient Amnestic to Procedure: Yes Nausea / Vomiting: adequately controlled Pain: adequately controlled Airway Patency, RR, SpO2: stable & adequate BP & HR: stable & adequate Hydration State: stable & adequate Anesthetic Complications: no major complications apparent
--- NOTE | 2020-11-16 12:41 | GI REPORT ---
Patient Name: Isabel Quick Procedure Date: 11/16/2020 11:47 AM Date of : 1945 Admit Type: Inpatient Age: 75 Gender: Female Attending MD: Cristobal Guido MD Procedure: Colonoscopy Providers: Cristobal Guido MD Referring MD: Gaston Grullon Indications: Abnormal CT of the GI tract Medicines: Monitored Anesthesia Care Complications: No immediate complications. Estimated blood loss: None. Estimated Blood Loss: Estimated blood loss: none. Procedure: Pre-Anesthesia Assessment: - Prior Anticoagulants: The patient has taken no previous anticoagulant or antiplatelet agents. - ASA Grade Assessment: II - A patient with mild systemic disease. After I obtained informed consent, the scope was passed under direct vision. Throughout the procedure, the patient's blood pressure, pulse, and oxygen saturations were monitored continuously. The scope was introduced through the anus and advanced to the terminal ileum, with identification of the appendiceal orifice and IC valve. The colonoscopy was performed without difficulty. The patient tolerated the procedure well. The quality of the bowel preparation was fair. Findings: The terminal ileum appeared normal. Biopsies were taken with a cold forceps for histology. Estimated blood loss: none. The colon (entire examined portion) appeared normal. Biopsies for histology were taken with a cold forceps from the right colon and left colon for evaluation of microscopic colitis. Estimated blood loss: none. Non-bleeding external hemorrhoids were found. The hemorrhoids were medium-sized. stool aspirate sent for testing. Impression: - Preparation of the colon was fair. - The examined portion of the ileum was normal. Biopsied. - The entire examined colon is normal. Biopsied. - Non-bleeding external hemorrhoids. Recommendation: - [facility]. - Advance diet as tolerated today. - Await pathology results. Cristobal Guido MD 11/16/2020 12:40:56 PM This report has been signed electronically. Note Initiated On: 11/16/2020 11:47 AM Number of Addenda: 0 I attest to the content of the Intraoperative Record and orders documented therein, exceptions below {[id number]}
[2020-11-16] MEDS: PANTOprazole 40 MG in SYRINGE 0 ML IV SCH (14:32)
[2020-11-16] MEDS: POTASSIUM CHLORIDE / WTR 10 MEQ/100 ML PLCT IV SCH ×2 (16:45→19:49)
[2020-11-16] MEDS ORDERED: PIPERACILLIN/TAZOBACTAM 4.5 GM in DEXTROSE 5% 100 ML IV SCH (18:00)
[2020-11-16] MEDS: POTASSIUM CHLORIDE CRTAB 20 MEQ TABCR PO SCH (20:06)
[2020-11-16] MEDS: APIXABAN 5 MG TABLET PO SCH (20:06)
--- NOTE | 2020-11-16 20:22 | Hospitalist Progress Note ---
Date of Service November 16, 2020 Assessment & Plan (1) Acute kidney injury: SUSSY on CKD stage IV Cr ema to 2.9, today it is down to 1.9 K is 3.1, oral and IV replacement ordered check BMP in AM anticipate resuming Lasix on Friday 11/17 (2) Ileitis: pain is better today continue Zosyn every 8 hours, WBC is normal, likely stop at discharge as unclear what we are treating allow diabetic diet Consult gastroenterology for ileitis and elevated bilirubin - colonoscopy on 11/16, normal appearing colon and ileum cold forceps biopsies taken of ileum and colon follow up with GI for results (3) Chronic kidney disease, stage 4 (severe): as above, Cr down to 1.9 stop fluids 11/15 BMP in AM (4) Obstructive sleep apnea: Patient reportedly has CPAP machine at home but is noncompliant for the last 2 years In the emergency department patient had episode of apnea with hypoxia to 77% with sleep While awake patient had SaO2 in the mid 90s on room air CPAP at 8 cm of water at night. Hold for abdominal distention or increased pain Supplemental oxygen via nasal cannula 2 L/min (5) COPD (chronic obstructive pulmonary disease): No evidence of pulmonary function testing Patient is not on any outpatient inhalers Continue to monitor for hypoxia No history of tobacco abuse or secondhand smoke exposure (6) Coronary artery disease: History of CABG and aortic valve replacement at [facility] Continue Eliquis 2.5 mg p.o. twice daily Hold Lasix at this time and administer as needed Left ventricular ejection fraction of 25 to 30% Pacemaker is in place Patient is allergic to aspirin (rash and urticaria) (7) CHF (congestive heart failure), NYHA class III: LVEF 25 to 30% continue to hold Lasix, likely resume 11/17 No indication for repeat echocardiogram at this time We will follow patient on medical telemetry (8) Diabetes mellitus type 2 in obese: Patient typically uses Lantus 5 units at bedtime with no other coverage Hemoglobin A1c in August was 8.5 NovoLog sliding scale insulin Follow BSG's - monitor for hypoglycemia, no episodes today (9) Endometrial cancer, grade I: IUD is in place Patient reports no vaginal bleeding Outpatient management (10) Esophageal dysmotility: GI consulted for ileitis and elevated bilirubin Patient denies any acute complaints (11) Hyperlipidemia: Hold statin for now as patient is n.p.o. (12) Hypertension: Home meds include Toprol-XL 25 mg daily Hemodynamically stable Monitor on telemetry (13) Vitamin D deficiency: Hold vitamin D supplement at this time Resume as patient improves (14) DVT prophylaxis: holding Eliquis Ambulate as tolerated Admission and Anticipated Discharge Date Admission Date: November 12, 2020 Subjective patient doing well after colonoscopy, on 2L oxygen, encouraged incentive spirometry no chest pain, no dyspnea, no GI symptoms will give her a diet, she is thrilled to eat again checked labs, Cr improved to 1.97, K is 3.1, ordered replacement reviewed colonoscopy results, ileum appeared normal on visual inspection biopsies taken of ileum and colon Review of Systems Review of Systems: All systems reviewed & are unremarkable except as noted in Subjective Physical Exam Constitutional: well developed, well nourished and + obese; no acute distress Neck: trachea midline, no thyromegaly + thick neck Respiratory: normal respiratory effort, lungs clear to auscultation Cardiovascular: RRR, no murmur, no edema Gastrointestinal (Abdomen): normal bowel sounds, soft, nontender, no hepatosplenomegaly Musculoskeletal: no cyanosis or clubbing, extremities motor strength 5/5 Skin: no rashes, warm and dry Neurologic: patellar DTR's 2+ bilat, sensation intact and PERRL, EOMI, accommodation nl, no face palsy, no dysarthria Psychiatric: A+Ox3, euthymic affect Lymphatic: no cervical or axillary lymphadenopathy Results & Data Results & Data ([facility]) Vital Signs (Past 12 Hours) Vital Signs Temp Pulse Resp BP Pulse Ox 11/16/20 19:46 36.4 C L 57 L 20 105/69 98 11/16/20 15:28 36.6 C 61 18 119/77 96 11/16/20 13:01 60 16 137/75 100 11/16/20 12:45 60 16 128/72 97 11/16/20 12:29 69 16 101/55 L 100 11/16/20 10:50 36.3 C L 60 16 138/79 100 Laboratory Results Laboratory Results - last 24 hr 11/16/20 11/16/20 11/16/20 05:52 07:58 07:58 WBC 7.66 RBC 4.39 Hgb 13.0 Hct 38.9 MCV 88.6 MCH 29.6 MCHC 33.4 RDW Std Deviation 43.4 RDW Coeff of Chriss 13.4 Plt Count 154 MPV 9.9 Sodium 137 Potassium 3.1 L Chloride 103 Carbon Dioxide 27 Anion Gap 6.0 BUN 16 Creatinine 1.97 H D Est Cr Clr Drug Dosing 26.5 Est GFR ( Amer) 27.7 Est GFR (Non-Af Amer) 23.9 BUN/Creatinine Ratio 8.3 L Glucose 135 H POC Glucose 106 H Calcium 8.9 Stl C. diff Tox B Gene 11/16/20 11/16/20 11/16/20 12:13 15:01 16:51 WBC RBC Hgb Hct MCV MCH MCHC RDW Std Deviation RDW Coeff of Chriss Plt Count MPV Sodium Potassium Chloride Carbon Dioxide Anion Gap BUN Creatinine Est Cr Clr Drug Dosing Est GFR ( Amer) Est GFR (Non-Af Amer) BUN/Creatinine Ratio Glucose POC Glucose 134 H 131 H Calcium Stl C. diff Tox B Gene Negative Cdiff Gene Medications Administered Current Inpatient Medications Apixaban (Apixaban 5 Mg Tablet) 5 mg PO BID [facility] Stop: 12/16/20 20:59 Last Admin: 11/16/20 20:06 Dose: 5 mg Documented by: Dextrose (Dextrose 50% 50 Ml Syringe) 25 - 50 ml IV UD PRN; Protocol PRN Reason: Hypoglycemia Protocol Stop: 12/12/20 12:37 Glucagon (Glucagon For Inj 1 Mg Vial) 1 mg SQ UD PRN; Protocol PRN Reason: Hypoglycemia Protocol Stop: 12/12/20 12:37 Glucose (Glucose 10 Tabs/Tube) 4 - 8 tabs PO UD PRN; Protocol PRN Reason: Hypoglycemia Protocol Stop: 12/12/20 12:37 Glucose (Glucose 40% Gel 15 Gm Tube) 15 - 30 gm PO UD PRN; Protocol PRN Reason: Hypoglycemia Protocol Stop: 12/12/20 12:37 Hydromorphone HCl (Hydromorphone Inj 0.5 Mg/0.5 Ml Syr) 0.5 mg IV Q4H PRN PRN Reason: Pain Stop: 11/26/20 12:37 Last Admin: 11/14/20 02:28 Dose: 0.5 mg Documented by: Pantoprazole Sodium 40 mg/ (Syringe) 10 mls @ 5 mls/min IV DAILY@1100 [facility] Stop: 12/13/20 10:59 Last Admin: 11/16/20 14:32 Dose: Not Given Documented by: Piperacillin Sod/Tazobactam (Sod 4.5 gm/ Dextrose) 120 mls @ 30 mls/hr IV Q8H [place]; Protocol Stop: 11/22/20 17:59 Last Admin: 11/16/20 18:15 Dose: 30 mls/hr Documented by: Insulin Aspart (Insulin Aspart 100 Units/Ml 3 Ml Pen) 0 units SC Q6 [place] Stop: 12/16/20 05:59 Last Admin: 11/16/20 18:43 Dose: Not Given Documented by: Ketorolac Tromethamine (Ketorolac Tromethamine 15 Mg/Ml Vial) 15 mg IV Q6H PRN PRN Reason: Pain Stop: 11/17/20 12:37 Last Admin: 11/14/20 15:05 Dose: 15 mg Documented by: Miscellaneous (Carbohydrates For Hypoglycemia ) 15 - 30 gm PO UD PRN PRN Reason: Hypoglycemia Protocol Stop: 12/12/20 12:37 Miscellaneous Information (Piperacill/Tazobac Consult Active) 1 ea N/A UD PRN PRN Reason: Consult Stop: 12/12/20 12:37 Ondansetron HCl (Ondansetron Inj 2 Mg/Ml 2 Ml Vial) 4 mg IV Q6H PRN PRN Reason: Nausea Stop: 12/12/20 12:37 Last Admin: 11/13/20 13:45 Dose: 4 mg Documented by: Potassium Chloride (Potassium Chloride Crtab 20 Meq Tabcr) 20 meq PO BID [place] Stop: 12/16/20 20:59 Last Admin: 11/16/20 20:06 Dose: 20 meq Documented by: PG Care Time/CCT Total # of Minutes Spent Total Time Spent with Patient: Total time spent is greater than 50% in coordination of care (as documented) at patient's floor/unit and/or counseling patient: Coding Level of Care Code 11209 Subseq Hosp Care Lvl 3 Diagnoses Acute kidney injury N17.9 Ileitis K52.9 Chronic kidney disease, stage 4 (severe) N18.4 Obstructive sleep apnea G47.33 COPD (chronic obstructive pulmonary disease) J44.9 Coronary artery disease I25.10 Coronary Disease-Associated Artery/Lesion type: mcgrath artery [place] vs. transplanted heart: mcgrath heart Associated angina: without angina CHF (congestive heart failure), NYHA class III I50.23 Congestive heart failure type: systolic Congestive heart failure chronicity: acute on chronic Diabetes mellitus type 2 in obese E11.69; E66.9 Endometrial cancer, grade I C54.1 Esophageal dysmotility K22.4 Hyperlipidemia E78.5 Hyperlipidemia type: unspecified Hypertension I10 Hypertension type: essential hypertension Vitamin D deficiency E55.9 DVT prophylaxis Z29.9 (1) Coronary artery disease Coronary Disease-Associated Artery/Lesion type: mcgrath artery [place] vs. transplanted heart: mcgrath heart Associated angina: without angina Qualified Code(s): I25.10 - Atherosclerotic heart disease of mcgrath coronary artery without angina pectoris (2) CHF (congestive heart failure), NYHA class III Congestive heart failure type: systolic Congestive heart failure chronicity: acute on chronic Qualified Code(s): I50.23 - Acute on chronic systolic (congestive) heart failure (3) Hyperlipidemia Hyperlipidemia type: unspecified Qualified Code(s): E78.5 - Hyperlipidemia, unspecified (4) Hypertension Hypertension type: essential hypertension Qualified Code(s): I10 - Essential (primary) hypertension
[2020-11-17] MEDS: INSULIN ASPART 100 UNITS/ML 3 ML PEN SC SCH ×6 (05:45→21:06)
[2020-11-17] MEDS: APIXABAN 5 MG TABLET PO SCH ×2 (09:11→20:32)
[2020-11-17] MEDS: PANTOprazole 40 MG in SYRINGE 0 ML IV SCH (09:11)
[2020-11-17] MEDS: FUROSEMIDE 40 MG TAB PO SCH (09:11)
[2020-11-17] MEDS: POTASSIUM CHLORIDE CRTAB 20 MEQ TABCR PO SCH ×2 (09:11→20:33)
--- NOTE | 2020-11-17 09:54 | Gastroenterology Progress Note ---
Date of Service November 17, 2020 Assessment & Plan (1) Ileitis: (2) Abdominal pain: Pt is a 75 y.o. female admitted with severe abdominal pain in the periumbilical region with abnormal CT imaging suggestive of ileitis and bowel dilation without obstruction. No findings on colonoscopy to explain CT. 1. Await histology which is pending. Results will be communicated when available. 2. Diet as tolerated. 3. Outpatient follow up if needed for any returning symptoms. 4. Will sign off at this time. Feel free to contact us if any questions/concerns. Admission and Anticipated Discharge Date Admission Date: November 12, 2020 Subjective Patient is status post colonoscopy which was unremarkable. Ileal and colonic biopsies are pending. Patient has had resolution of abdominal pain. Review of Systems Constitutional: no fever and no chills Gastrointestinal: as per Subjective / HPI Physical Exam Constitutional: well developed and well nourished Eyes: EOM intact bilaterally Neck: normal visual inspection Respiratory: normal respiratory effort Skin: normal color Psychiatric: A+Ox3, euthymic affect Results & Data Results & Data ([facility]) Vital Signs (Past 12 Hours) Vital Signs Temp Pulse Pulse Resp BP BP Pulse Ox 11/17/20 07:24 36.6 C 60 16 116/67 98 11/17/20 03:50 20 11/17/20 03:27 36.8 C 60 15 122/73 99 11/16/20 23:34 36.8 C 60 16 131/79 99 11/16/20 22:50 61 17 99 Laboratory Results Abnormal lab results 11/16/20 11/16/20 11/16/20 Range/Units 15:01 16:51 20:41 POC Glucose 134 H 131 H 205 H (70-99) mg/dl 11/17/20 Range/Units 07:31 POC Glucose 139 H (70-99) mg/dl PG Care Time/CCT Total # of Minutes Spent Total Time Spent with Patient: Total time spent is greater than 50% in coordination of care (as documented) at patient's floor/unit and/or counseling patient: Coding Level of Care Code 55686 Subseq Hosp Care Lvl 3 Diagnoses Ileitis K52.9 Abdominal pain R10.9 Abdominal location: unspecified location (1) Abdominal pain Abdominal location: unspecified location Qualified Code(s): R10.9 - Unspecified abdominal pain
[2020-11-17 10:14] LABS: BUN Creatinine Ratio 8.8 (10-20); Calcium 8.6 mg/dl (8.5-10.1); Creatinine Clr Calc Pharmacy 25.3 ml/min; Est GFR (African American) 26.3 ml/min; Est GFR (Non-African American) 22.7 ml/min; Potassium 3.6 mmol/L (3.5-5.1)
[2020-11-17] MEDS ORDERED: ACETAMINOPHEN 325 MG TAB PO PRN (10:44)
--- NOTE | 2020-11-17 12:16 | XRay Report ---
XR elbow LT min 3V routine CLINICAL HISTORY: left olecranon pain and radial head pain COMPARISON STUDY: None. FINDINGS: No fracture or dislocation within the left elbow. No elbow effusion identified. Mild cartil age space narrowing and small marginal osteophytes at the L1 joint consistent with degenerative perez e. There is an enthesophyte at the olecranon. There is mild soft tissue swelling at the olecranon. IMPRESSION: 1. No fracture or dislocation within the left elbow. 2. Mild posterior soft tissue swelling at the olecranon. 3. Mild osteoarthritis. ACT 112: Negative or not required by law. Electronically signed by: Ajay Monroy M.D. 11/17/2020 12:15 PM
[2020-11-17] MEDS: METOPROLOL SUCC 25MG EXT REL TAB PO SCH (12:21)
[2020-11-17] MEDS: ESCITALOPRAM OXALATE 10 MG TAB PO SCH (12:21)
[2020-11-17] MEDS: LOPERAMIDE HCL 2 MG CAP PO PRN ×2 (12:24→20:36)
--- NOTE | 2020-11-17 16:25 | Hospitalist Progress Note ---
Date of Service November 17, 2020 Assessment & Plan (1) Acute kidney injury: SUSSY on CKD stage IV Cr ema to 2.9, 1.9 yesterday and 2.0 today, at baseline K is 3.6 resumed Lasix on Friday 11/17 (2) Ileitis: pain is better, stools still loose, add imodium stopped Zosyn Consult gastroenterology for ileitis and elevated bilirubin - colonoscopy on 11/16, normal appearing colon and ileum cold forceps biopsies taken of ileum and colon follow up with GI for results (3) Left elbow pain: 1-2 weeks of pain, no serious injury no fracture on x-ray ESR normal and CRP minimally elevated could try NSAIDs but contraindicated due to CKD stage IV hesitant to add steroids with her diabetes and normal ESR could be reactive arthritis in setting of diarrhea? UTI? (4) Chronic kidney disease, stage 4 (severe): as above, Cr down to 2.0 stop fluids 11/15 BMP in AM (5) Obstructive sleep apnea: Patient reportedly has CPAP machine at home but is noncompliant for the last 2 years In the emergency department patient had episode of apnea with hypoxia to 77% with sleep While awake patient had SaO2 in the mid 90s on room air CPAP at 8 cm of water at night. Hold for abdominal distention or increased pain Supplemental oxygen via nasal cannula 2 L/min (6) COPD (chronic obstructive pulmonary disease): No evidence of pulmonary function testing Patient is not on any outpatient inhalers Continue to monitor for hypoxia No history of tobacco abuse or secondhand smoke exposure (7) Coronary artery disease: History of CABG and aortic valve replacement at [facility] Continue Eliquis 2.5 mg p.o. twice daily Hold Lasix at this time and administer as needed Left ventricular ejection fraction of 25 to 30% Pacemaker is in place Patient is allergic to aspirin (rash and urticaria) (8) CHF (congestive heart failure), NYHA class III: LVEF 25 to 30% continue to hold Lasix, likely resume 11/17 No indication for repeat echocardiogram at this time We will follow patient on medical telemetry (9) Diabetes mellitus type 2 in obese: Patient typically uses Lantus 5 units at bedtime with no other coverage Hemoglobin A1c in August was 8.5 NovoLog sliding scale insulin Follow BSG's - monitor for hypoglycemia, no episodes today (10) Endometrial cancer, grade I: IUD is in place Patient reports no vaginal bleeding Outpatient management (11) Esophageal dysmotility: GI consulted for ileitis and elevated bilirubin Patient denies any acute complaints (12) Hyperlipidemia: Hold statin for now as patient is n.p.o. (13) Hypertension: Home meds include Toprol-XL 25 mg daily Hemodynamically stable Monitor on telemetry (14) Vitamin D deficiency: Hold vitamin D supplement at this time Resume as patient improves (15) DVT prophylaxis: holding Eliquis Ambulate as tolerated Admission and Anticipated Discharge Date Admission Date: November 12, 2020 Subjective patient doing well, minimal abdominal pain, + diarrhea, no nausea eating well, glad to have real food c/o left elbow pain, says it started hurting a few weeks ago has pain over entire joint, tender over olecranon, radial head, hurts to supinate hand ESR normal, CRP essentially normal, normal x-ray of elbow Review of Systems Review of Systems: All systems reviewed & are unremarkable except as noted in Subjective Physical Exam Constitutional: well developed, well nourished and + obese; no acute distress Neck: trachea midline, no thyromegaly + thick neck Respiratory: normal respiratory effort, lungs clear to auscultation Cardiovascular: RRR, no murmur, no edema Gastrointestinal (Abdomen): normal bowel sounds, soft, nontender, no hepatosplenomegaly Inspection/Auscultation: abdomen normal to inspection and normal bowel sounds; abdomen not distended Percussion/Palpation: + abdomen tender (RLQ), abdomen soft and normal to percussion Musculoskeletal: no cyanosis or clubbing, extremities motor strength 5/5 left elbow tender to palpation, olecranon and radial head, no joint swelling, hurts to supinate Skin: no rashes, warm and dry Neurologic: patellar DTR's 2+ bilat, sensation intact and PERRL, EOMI, accommodation nl, no face palsy, no dysarthria Psychiatric: A+Ox3, euthymic affect Lymphatic: no cervical or axillary lymphadenopathy Results & Data Results & Data ([facility]) Vital Signs (Past 12 Hours) Vital Signs Temp Pulse Resp BP BP Pulse Ox 11/17/20 15:13 36.5 C 62 16 114/76 100 11/17/20 11:34 36.9 C 74 16 105/67 98 07/09/21 07:24 36.6 C 60 16 116/67 98 Laboratory Results Laboratory Results - last 24 hr 11/16/20 11/16/20 11/17/20 16:51 20:41 07:31 ESR Sodium Potassium Chloride Carbon Dioxide Anion Gap BUN Creatinine Est Cr Clr Drug Dosing Est GFR ( Amer) Est GFR (Non-Af Amer) BUN/Creatinine Ratio Glucose POC Glucose 131 H 205 H 139 H Calcium C-Reactive Protein 11/17/20 11/17/20 11/17/20 09:10 11:26 11:27 ESR 8 Sodium 141 Potassium 3.6 D Chloride 109 H Carbon Dioxide 27 Anion Gap 5.0 BUN 18 Creatinine 2.06 H Est Cr Clr Drug Dosing 25.3 Est GFR ( Amer) 26.3 Est GFR (Non-Af Amer) 22.7 BUN/Creatinine Ratio 8.8 L Glucose 180 H POC Glucose 186 H Calcium 8.6 C-Reactive Protein 11/17/20 11:27 ESR Sodium Potassium Chloride Carbon Dioxide Anion Gap BUN Creatinine Est Cr Clr Drug Dosing Est GFR ( Amer) Est GFR (Non-Af Amer) BUN/Creatinine Ratio Glucose POC Glucose Calcium C-Reactive Protein 0.35 H Diagnostic Findings XR elbow LT min 3V routine CLINICAL HISTORY: left olecranon pain and radial head pain COMPARISON STUDY: None. FINDINGS: No fracture or dislocation within the left elbow. No elbow effusion identified. Mild cartilage space narrowing and small marginal osteophytes at the L1 joint consistent with degenerative change. There is an enthesophyte at the olecranon. There is mild soft tissue swelling at the olecranon. IMPRESSION: 1. No fracture or dislocation within the left elbow. 2. Mild posterior soft tissue swelling at the olecranon. 3. Mild osteoarthritis. Medications Administered Current Inpatient Medications Acetaminophen (Acetaminophen 325 Mg Tab) 650 mg PO Q4H PRN PRN Reason: Pain Stop: 12/17/20 10:43 Last Admin: 11/17/20 12:24 Dose: 650 mg Documented by: Apixaban (Apixaban 5 Mg Tablet) 5 mg PO BID [place] Stop: 12/16/20 20:59 Last Admin: 11/17/20 09:11 Dose: 5 mg Documented by: Atorvastatin Calcium (Atorvastatin 40 Mg Tab) 40 mg PO HS [place] Stop: 12/17/20 20:59 Dextrose (Dextrose 50% 50 Ml Syringe) 25 - 50 ml IV UD PRN; Protocol PRN Reason: Hypoglycemia Protocol Stop: 12/12/20 12:37 Escitalopram Oxalate (Escitalopram Oxalate 10 Mg Tab) 10 mg PO [facility] Stop: 12/17/20 10:59 Last Admin: 11/17/20 12:21 Dose: 10 mg Documented by: Furosemide (Furosemide 40 Mg Tab) 40 mg PO [facility] Stop: 12/17/20 08:59 Last Admin: 11/17/20 09:11 Dose: 40 mg Documented by: Glucagon (Glucagon For Inj 1 Mg Vial) 1 mg SQ UD PRN; Protocol PRN Reason: Hypoglycemia Protocol Stop: 12/12/20 12:37 Glucose (Glucose 10 Tabs/Tube) 4 - 8 tabs PO UD PRN; Protocol PRN Reason: Hypoglycemia Protocol Stop: 12/12/20 12:37 Glucose (Glucose 40% Gel 15 Gm Tube) 15 - 30 gm PO UD PRN; Protocol PRN Reason: Hypoglycemia Protocol Stop: 12/12/20 12:37 Pantoprazole Sodium 40 mg/ (Syringe) 10 mls @ 5 mls/min IV DAILY@1100 [facility] Stop: 12/13/20 10:59 Last Admin: 11/17/20 09:11 Dose: 5 mls/min Documented by: Insulin Aspart (Insulin Aspart 100 Units/Ml 3 Ml Pen) 0 units SC [facility] Stop: 12/17/20 07:29 Last Admin: 11/17/20 12:22 Dose: 4 units Documented by: Loperamide HCl (Loperamide Hcl 2 Mg Cap) 2 mg PO Q4 PRN PRN Reason: Diarrhea Stop: 12/17/20 11:13 Last Admin: 11/17/20 12:24 Dose: 2 mg Documented by: Metoprolol Succinate (Metoprolol Succ 25mg Ext Rel Tab) 25 mg PO [facility] Stop: 12/17/20 10:59 Last Admin: 11/17/20 12:21 Dose: 25 mg Documented by: Miscellaneous (Carbohydrates For Hypoglycemia ) 15 - 30 gm PO UD PRN PRN Reason: Hypoglycemia Protocol Stop: 12/12/20 12:37 Ondansetron HCl (Ondansetron Inj 2 Mg/Ml 2 Ml Vial) 4 mg IV Q6H PRN PRN Reason: Nausea Stop: 12/12/20 12:37 Last Admin: 11/13/20 13:45 Dose: 4 mg Documented by: Potassium Chloride (Potassium Chloride Crtab 20 Meq Tabcr) 20 meq PO BID [place] Stop: 12/16/20 20:59 Last Admin: 11/17/20 09:11 Dose: 20 meq Documented by: PG Care Time/CCT Total # of Minutes Spent Total Time Spent with Patient: Total time spent is greater than 50% in coordination of care (as documented) at patient's floor/unit and/or counseling patient: Coding Level of Care Code 64289 Subseq Hosp Care Lvl 2 Diagnoses Acute kidney injury N17.9 Ileitis K52.9 Left elbow pain M25.522 Chronic kidney disease, stage 4 (severe) N18.4 Obstructive sleep apnea G47.33 COPD (chronic obstructive pulmonary disease) J44.9 Coronary artery disease I25.10 Coronary Disease-Associated Artery/Lesion type: [place] artery [place] vs. transplanted heart: [place] heart Associated angina: without angina CHF (congestive heart failure), NYHA class III I50.23 Congestive heart failure type: systolic Congestive heart failure chronicity: acute on chronic Diabetes mellitus type 2 in obese E11.69; E66.9 Endometrial cancer, grade I C54.1 Esophageal dysmotility K22.4 Hyperlipidemia E78.5 Hyperlipidemia type: unspecified Hypertension I10 Hypertension type: essential hypertension Vitamin D deficiency E55.9 DVT prophylaxis Z29.9 (1) Coronary artery disease Coronary Disease-Associated Artery/Lesion type: [place] artery [place] vs. transplanted heart: [place] heart Associated angina: without angina Qualified Code(s): I25.10 - Atherosclerotic heart disease of [place] coronary artery without angina pectoris (2) CHF (congestive heart failure), NYHA class III Congestive heart failure type: systolic Congestive heart failure chronicity: acute on chronic Qualified Code(s): I50.23 - Acute on chronic systolic (congestive) heart failure (3) Hyperlipidemia Hyperlipidemia type: unspecified Qualified Code(s): E78.5 - Hyperlipidemia, unspecified (4) Hypertension Hypertension type: essential hypertension Qualified Code(s): I10 - Essential (primary) hypertension
[2020-11-17] MEDS ORDERED: PANTOprazole 40 MG TAB PO SCH (21:00)
[2020-11-17] MEDS ORDERED: ATORVASTATIN 40 MG TAB PO SCH (21:00)
[2020-11-18] MEDS ORDERED: COLCHICINE 0.6 MG TAB PO ONE (07:30)
[2020-11-18] MEDS: FUROSEMIDE 40 MG TAB PO SCH (08:06)
[2020-11-18] MEDS: ESCITALOPRAM OXALATE 10 MG TAB PO SCH (08:07)
[2020-11-18] MEDS: APIXABAN 5 MG TABLET PO SCH (08:07)
[2020-11-18] MEDS: INSULIN ASPART 100 UNITS/ML 3 ML PEN SC SCH ×2 (08:07→12:08)
[2020-11-18] MEDS: METOPROLOL SUCC 25MG EXT REL TAB PO SCH (08:07)
[2020-11-18] MEDS: POTASSIUM CHLORIDE CRTAB 20 MEQ TABCR PO SCH (08:07)
[2020-11-18 08:57] LABS: BUN Creatinine Ratio 10.3 (10-20); Creatinine Clr Calc Pharmacy 25.6 ml/min; Est GFR (African American) 26.7 ml/min; Est GFR (Non-African American) 23.1 ml/min; Potassium 3.9 mmol/L (3.5-5.1)
[2020-11-18] MEDS: PANTOprazole 40 MG in SYRINGE 0 ML IV SCH (12:09)
--- NOTE | 2020-11-18 12:53 | Discharge Summary ---
Date of Service November 18, 2020 Admission HPI Per Admitting Provider This is a 75-year-old female with a past medical history including CAD status post CABG, aortic valve replacement, endometrial cancer, CHF with an ejection fraction of 25 to 30%, chronic kidney disease stage IV, diabetes mellitus type 1 on Lantus daily, GERD, depression, vitamin D3 deficiency, hyper lipedema near, morbid obesity with a BMI of 40 kg/m, obstructive sleep apnea (noncompliant with CPAP) chronic hypoxia on supplemental home O2 of 2 L/min via nasal cannula of unknown etiology. The patient presented to the emergency department with abdominal pain that was severe. She reports that at 4 AM she woke up with nausea but was unable to vomit. She had a period of belching and then felt as though she had to go to the bathroom. She sat on the toilet from 04:30 to 06:15 with no bowel movement and no diarrhea. She denies any fever, sweats, chills, rigors. She does report that she is always cold and typically keeps the house at about 86 F. On examination she has significant pain to light palpation in the right upper quadrant. Bowel sounds are present with no evidence of high-pitched tinkling. She is a lifelong non-smoker. She is a lifelong nondrinker. She does have ambulatory dysfunction and uses a walker at home. She has had no recent falls. She denies eating out or having any unusual or new foods. She states that she takes her medications as prescribed. She does have a CPAP machine at home but has not used it for least the last 2 years. This is provided by [facility] patient. In the emergency department while sleeping she was found to be apneic with saturations dropping to 76% on room air. The patient states that she has no history of Covid infection. She has not had any vaccinations for Covid. Patient does not have living will or advanced directive but wishes to be full resuscitation in the event of cardiopulmonary arrest. Principal Diagnosis Ileitis/colitis causing diarrhea, SUSSY on CKD Discharge Exam Constitutional well developed, well nourished and + obese; no acute distress Neck trachea midline, no thyromegaly + thick neck Respiratory normal respiratory effort, lungs clear to auscultation Cardiovascular RRR, no murmur, no edema Gastrointestinal (Abdomen) Inspection/Auscultation: abdomen normal to inspection and normal bowel sounds; abdomen not distended Percussion/Palpation: abdomen soft and normal to percussion; abdomen nontender Musculoskeletal no cyanosis or clubbing, extremities motor strength 5/5 Skin no rashes, warm and dry Neurologic patellar DTR's 2+ bilat, sensation intact and PERRL, EOMI, accommodation nl, no face palsy, no dysarthria Psychiatric A+Ox3, euthymic affect Lymphatic no cervical or axillary lymphadenopathy Discharge Data Allergies Allergy/AdvReac Type Severity Reaction Status Date / Time aspirin Allergy Intermediate HIVES Verified 11/12/20 08:54 Iodinated Contrast Media Allergy Intermediate HIVES - Verified 11/12/20 08:54 MRI DYE levofloxacin Allergy Intermediate HIVES, Verified 11/12/20 08:54 VEIN IRRITATION W/IV LEVAQUIN erythromycin base Allergy Unknown UNKNOWN Verified 11/12/20 08:54 Consultations 11/12/20 10:28 ED Decision to Admit Stat 11/12/20 12:38 Consult Gastroenterology Routine Procedures Performed Operation Date: 11/16/20 16:30 Actual Procedures p Colonoscopy Biopsy Cytology - Cristobal Guido MD Ordered Studies 11/12/20 08:07 CT abd pelvis wo con Stat Diabetes Follow up Diabetes Follow-up Needed for HgbA1c >9% Hospital Course (1) Acute kidney injury: SUSSY on CKD stage IV Cr ema to 2.9, down to baseline of 1.9-2.0 for three days K is stable resumed Lasix on Friday 11/17 (2) Ileitis: pain is better, stools still loose, add imodium stopped Zosyn Consult gastroenterology for ileitis and elevated bilirubin - colonoscopy on 11/16, normal appearing colon and ileum cold forceps biopsies taken of ileum and colon normal ileum and left sided colon on biopsy right side of colon with non-specific colitis, no evidence of IBD, no lymphocytic colitis use Imodium PRN, follow up with GI (3) Left elbow pain: 1-2 weeks of pain, no serious injury no fracture on x-ray ESR normal and CRP minimally elevated could try NSAIDs but contraindicated due to CKD stage IV hesitant to add steroids with her diabetes and normal ESR could be reactive arthritis in setting of diarrhea? UTI? gave a dose of Colchicine in AM prior to discharge, helped a little repeat Colchicine 0.6mg PO day after discharge then stop no h/o gouty arthritis (4) Chronic kidney disease, stage 4 (severe): as above, Cr down to 2.0 stop fluids 11/15 (5) Obstructive sleep apnea: Patient reportedly has CPAP machine at home but is noncompliant for the last 2 years In the emergency department patient had episode of apnea with hypoxia to 77% with sleep While awake patient had SaO2 in the mid 90s on room air CPAP at 8 cm of water at night. Hold for abdominal distention or increased pain Supplemental oxygen via nasal cannula 2 L/min (6) COPD (chronic obstructive pulmonary disease): No evidence of pulmonary function testing Patient is not on any outpatient inhalers Continue to monitor for hypoxia No history of tobacco abuse or secondhand smoke exposure (7) Coronary artery disease: History of CABG and aortic valve replacement at [facility] Continue Eliquis 2.5 mg p.o. twice daily Hold Lasix at this time and administer as needed Left ventricular ejection fraction of 25 to 30% Pacemaker is in place Patient is allergic to aspirin (rash and urticaria) (8) CHF (congestive heart failure), NYHA class III: LVEF 25 to 30% resumed Lasix on 11/17 No indication for repeat echocardiogram at this time We will follow patient on medical telemetry (9) Diabetes mellitus type 2 in obese: Patient typically uses Lantus 5 units at bedtime with no other coverage Hemoglobin A1c in August was 8.5 NovoLog sliding scale insulin Follow BSG's - monitor for hypoglycemia, no episodes today (10) Endometrial cancer, grade I: IUD is in place Patient reports no vaginal bleeding Outpatient management (11) Esophageal dysmotility: GI consulted for ileitis and elevated bilirubin Patient denies any acute complaints (12) Hyperlipidemia: Hold statin for now as patient is n.p.o. (13) Hypertension: Home meds include Toprol-XL 25 mg daily Hemodynamically stable Monitor on telemetry (14) Vitamin D deficiency: supplementation daily Total Time Total Time Spent Total Time Spent (In Minutes): 35 Total Time Includes: Examination of the Patient, Discharge Planning and Medication Reconciliation Discharge Plan Discharge Items Patient Disposition: Home - Self-Care Reason For Visit: ILEITIS Discharge Diagnosis: Ileitis, diarrhea Chronic kidney disease stage IV Left elbow pain Condition on Discharge: Good Goals: follow up with GI for biopsy results follow up with PCP in a week Activity: Resume your previous activity Driving/Machine Use: No limitations Weightbearing: Full weightbearing Non-emergency contact: Primary Care Provider Call non-emergency contact if: you have any medication questions and your symptoms worsen Follow-up/Referrals: Aimee Crook CRNP [Primary Care Provider] - (one week) Diet: Carb Consistent or DM2 and Heart Healthy Fluids: 2000ml (8 cups) Addtl Attending Provider Instructions: Medications: - COLCHICINE: anti-inflammatory medication for elbow, received a dose this morning, just need one more dose, take tomorrow, script sent - IMODIUM: you can obtain over the counter, take as needed for loose stools Diarrhea, CT scan showed ileitis, colonoscopy with normal ileum and colon on direct visualization biopsies taken: ileum and left colon were NORMAL mucosa right side of colon with some non-specific colitis, no evidence of lymphocytic colitis, no evidence of inflammatory bowel disease symptoms improving, would continue to use Imodium as needed if diarrhea gets worse or returns then I would recommend referral to [facility] as outpatient, Dr. Wood/Dr. Guido or Zeenat GAMBOA CKD stage IV: creatinine is stable, back on Lasix 40mg daily since yesterday Left elbow pain: no fracture on 3 view x-ray, sed rate normal argues against inflammatory or reactive arthritis, responded well to colchicine, repeat one more dose follow up with PCP Pending Studies at Discharge: No Stand-Alone Forms: [facility], Smoking Cessation Medications and DC Order Prescriptions: New loperamide 2 mg Capsule 2 mg PO Q4 PRN (Reason: loose stool) 10 Days Qty: 30 RF: 0 Continued (DME) lancing device Misc See Rx Instructions .ROUTE .MEDSUPPLY Qty: 1 RF: 0 metoprolol succinate 25 mg tablet extended release 24 hr 25 mg PO QAM Qty: 90 RF: 3 Lantus Solostar U-100 Insulin 100 unit/mL (3 mL) insulin pen 5 unit SUBCUT HS Qty: 15 RF: 0 Eliquis 2.5 mg tablet 2.5 mg PO BID Qty: 60 RF: 11 atorvastatin 40 mg tablet 40 mg PO HS Qty: 90 RF: 3 escitalopram oxalate 10 mg tablet 10 mg PO QAM Qty: 90 RF: 3 (DME) lancets [Easy Touch Lancets] 30 gauge misc See Rx Instructions .ROUTE .MEDSUPPLY Qty: 200 RF: 5 (DME) blood-glucose meter [Accu-Chek Guide Glucose Meter] Misc See Rx Instructions .ROUTE .MEDSUPPLY Qty: 1 RF: 0 (DME) Accu-Chek Guide test strips Strip See Rx Instructions .ROUTE .MEDSUPPLY Qty: 100 RF: 3 (DME) lancets [Accu-Chek Fastclix Lancet Drum] Misc See Rx Instructions .ROUTE .MEDSUPPLY Qty: 102 RF: 3 pantoprazole 40 mg tablet,delayed release (DR/EC) 40 mg PO BID Qty: 60 RF: 2 nystatin 100,000 unit/gram powder 1 applic topical BID Qty: 60 RF: 0 furosemide [Lasix] 40 mg tablet 40 mg PO .COMPLEX Qty: 180 RF: 3 cholecalciferol (vitamin D3) [Vitamin D3] 25 mcg (1,000 unit) Tablet 25 mcg PO QAM RF: 0 Discharge Orders: Discharge Order (Routine); Ordered 11/18/20 Ordered By: Gaston Whalen/Other Patient Handouts: Colonoscopy Admission Data Admit Date/Time: 11/12/20 11:35 Attending Provider: Gaston Grullon Admit Provider: Nini Hebert Primary Care Provider: Aimee Crook Other Providers: Nini Hebert ; Jobzle ; Sal Wood Other Interventions: Discharge Summary Assessment (RN) Last Done: 11/18/20 12:56 Coding Level of Care Code D/C DAY MANAGEMENT >30 MINS Diagnoses Acute kidney injury N17.9 Ileitis K52.9 Left elbow pain M25.522 Chronic kidney disease, stage 4 (severe) N18.4 Obstructive sleep apnea G47.33 COPD (chronic obstructive pulmonary disease) J44.9 Coronary artery disease I25.10 Associated angina: without angina Coronary Disease-Associated Artery/Lesion type: [place] artery [place] vs. transplanted heart: [place] heart CHF (congestive heart failure), NYHA class III I50.23 Congestive heart failure chronicity: acute on chronic Congestive heart failure type: systolic Diabetes mellitus type 2 in obese E11.69; E66.9 Endometrial cancer, grade I C54.1 Esophageal dysmotility K22.4 Hyperlipidemia E78.5 Hyperlipidemia type: unspecified Hypertension I10 Hypertension type: essential hypertension Vitamin D deficiency E55.9
--- NOTE | 2020-11-29 07:33 | Coding Query ---
CONGESTIVE HEART FAILURE To Promote full compliance with coding requirements relating to patient care, physician participation is requested in all cases of trademark affixer uncertainty. Please assist us with the following questions. A diagnosis of Congestive Heart Failure is documented in the patient's medical record. To accurately code this diagnosis and to compare patient severity, we ask that you specify the type of heart failure by placing an X within the parenthesis (x). * Lasic held during admission, resumed 11/17. Hx CHF - judicous fluids ordered . No repeat echo. Thanks for your help! Jem Rosas, HEIDY [facility] SYSTOLIC HEART FAILURE ( ) Acute ( x) Chronic ( ) Acute on Chronic ( ) Rheumatic ( ) Unknown DIASTOLIC HEART FAILURE ( ) Acute ( ) Chronic ( ) Acute on Chronic ( ) Rheumatic ( ) Unknown COMBINED SYSTOLIC AND DIASTOLIC HEART FAILURE ( ) Acute ( ) Chronic ( ) Acute on Chronic ( ) Rheumatic ( ) Unknown Was the CHF Present On Admission? Please check the appropriate box: (x ) Present on Admission ( ) Not Present On Admission ( ) Clinically undetermined Thank you Jem WU
== END 2020-11-18 14:55 | disposition home health service (06) | DRG 392 ==
LOC: ED 07:49 → 2N 11:35 → SUATTDRO 11:35 → 2N 12:13

== ENCOUNTER 2023-08-29 01:29 | Inpatient (IN) ==
[2023-08-29] MEDS: AMIODARONE / D5W 150 MG/100 ML BAG IV STA (01:39)
--- NOTE | 2023-08-29 01:46 | Emergency Department Note ---
Impression & Plan Ventricular tachycardia, Dysrhythmia, Shortness of breath, Hypoxia, Elevated brain natriuretic peptide (BNP) level ED Provider Note HISTORY OF PRESENT ILLNESS: Patient is a 77-year-old female presenting with shortness of breath. EMS was called to the patient's house due to shortness of breath. And route to the hospital, patient came unresponsive and went into ventricular tachycardia on the monitor. She was shocked by her pacemaker/defibrillator. They gave her dose of 150 mg of amiodarone and about 3 minutes later the patient went back into another V. tach rhythm. She then got shocked again by her internal defibrillator. Patient was hypoxic on their initial assessment. She does not wear any supplemental oxygen at baseline. Patient denies any chest pain. Reports feeling short of breath "for a while" but states that tonight it was significantly worse both at rest and with exertion. Denies any DVT or PE history. ROS: as above PHYSICAL EXAM: Constitutional: Patient appears in no acute distress. HENT: Head: Normocephalic and atraumatic. Eyes: EOMI, PERRL Mouth/Throat: Mucous membranes moist. Neck: Trachea midline. Neck supple. Cardiovascular: Tachycardic. No murmurs, rubs or gallops. Intact distal pulses. Pulmonary/Chest: No respiratory distress. Breath sounds clear and equal bilaterally. Abdominal: Abdomen soft, no tenderness, rebound or guarding. Musculoskeletal: No edema, tenderness or deformity noted. Skin: Warm and dry. No rash, erythema, pallor or cyanosis Psychiatric: Appropriate mood and affect for situation. Neurological: Alert and keenly responsive. CN II-XII grossly intact, moving all extremities equally and fully. MDM: - Vitals signs showed tachycardia and hypotension. Pacer pads were placed on the patient. Initially was setting up to have the defibrillator deliver an external shock given the patient's hypotension. However, while charging up the defibrillator the patient broke her episode of V. tach without having an internal shock administered and went back into a paced rhythm. She was given 150 mg bolus of amiodarone and started on an amiodarone drip on arrival to the emergency department. - History obtained via patient. History as above. - Chronic conditions affecting care: HTN; CKD; COPD; DM-2; CHF; HLD - Differential diagnoses include, but are not limited to: Acute coronary syndrome; pulmonary embolism; dissection; tension pneumothorax; esophageal rupture; pneumonia - Order placed for continuous cardiac monitoring. At this time, monitor showed rate of 60 bpm with paced rhythm, per my interpretation. - External medical records reviewed. EMS run sheet was reviewed. Patient was given 150 mg bolus of amiodarone prehospital. - EKG interpreted by myself showed ventricular tachycardia. Rate 158 bpm. QT 326. - Repeat EKG was obtained after patient's V. tach broke. EKG interpreted by myself showed ventricular paced rhythm at 66 bpm. - Laboratory workup interpreted by myself showed normal WBC; stable electrolytes; CKD (Cr 2.33); elevated BNP (690); elevated troponin (54.1) - CXR negative for pneumonia, per my interpretation - Patient's pacemaker/defibrillator was interrogated. I was called by the [employer] rep at 2:14 AM. [employer] rep reports patient had 3 episodes of V. tach that had shocks delivered. Reports that the patient's therapy zone is up to 167 beats p.m. Reports that the episode the patient was having while the pacemaker was being interrogated only got up to 160 bpm. - Discussed case with [facility] patient services technician on-call, Dr. Colby, at 01:45 AM on 08/29/2023. He agreed with keeping the patient on an amiodarone drip. Requested that labs and troponins be ordered and requested that the patient get an echocardiogram. He states that he will notify the tire sorter to see the patient in the morning. - Discussion was had with case loader operator about patient's case and need for admission - Hospitalist consulted for admission - Patient admitted to [facility] hospitalist service for further evaluation and management. I have personally spent 43 minutes of critical care time in the direct management of this patient. This includes bedside care, interpretation of diagnostic studies, and testing, discussion with consultants, patient, and family members, and other required patient management activities. This 43 minutes is in excess of all separately billable procedures. ASSESSMENT AND PLAN: Diagnosis: Ventricular tachycardia; dysrhythmia; shortness of breath; elevated BNP Plan: admit Past Med/Surg History Medical History COVID-19 On anticoagulant therapy Morbid obesity with BMI of 40.0-44.9, adult Presence of combination internal cardiac defibrillator (ICD) and pacemaker Cardiomyopathy History of ventricular tachycardia Sleep apnea On home oxygen therapy Poor historian Osteoarthritis History of kidney stones CKD (chronic kidney disease) HLD (hyperlipidemia) HTN (hypertension) GERD (gastroesophageal reflux disease) Depression DM type 2 (diabetes mellitus, type 2) CHF (congestive heart failure) Colitis COPD (chronic obstructive pulmonary disease) Ileitis Endometrial cancer, grade I Esophageal dysmotility AF (paroxysmal atrial fibrillation) CVA (cerebral vascular accident) (11/23/10) Urge incontinence of urine 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) Surgical History History of cardiac radiofrequency ablation History of esophagogastroduodenoscopy (EGD) History of colonoscopy History of carpal tunnel release of both wrists History of cystoscopy History of left cataract surgery History of History of cholecystectomy History of appendectomy Hx of CABG History of aortic aneurysm repair H/O aortic valve replacement Family History Mother Diabetes Myocardial infarction Sister Diabetes Son Hypertension Denies family history of Ovarian cancer Prostate cancer Breast cancer Lung cancer Colorectal cancer Cancer Social History Smoking Status: Never smoker Second Hand Exposure: No; Do You Dip or Chew Tobacco: No; Hx Alcohol Use: No Hx Substance Use: No Preferred Language: Malagasy Communication Ability: Effective Visual Impairment: Limited Hearing Ability: Normal 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 Beliefs That Will Affect Care: None marital status: / Current Living Situation: Family current occupational status: disabled How many Children do You have: 3 Feels Safe at Home: Yes Childhood Exposure to Second-Hand Smoke: No Diet: low salt and regular caffeine: Yes (soda) during the past year weight has: remained stable Dental Care, Regularly: No Physical Activity Frequency: Does not Exercise Seatbelt Use: sometimes Sunscreen Use: No Assistive Devices: Glasses, Walker and Wheelchair Allergies Allergies Allergy/AdvReac Type Severity Reaction Status Date / Time aspirin Allergy Intermediate HIVES Verified 08/27/23 10:21 Iodinated Contrast Media Allergy Intermediate HIVES - Verified 08/27/23 10:21 MRI DYE levofloxacin Allergy Intermediate HIVES, Verified 08/27/23 10:21 VEIN IRRITATION W/IV LEVAQUIN erythromycin base Allergy Unknown UNKNOWN Verified 08/27/23 10:21 Home Meds Home Medications Medication Instructions Recorded Confirmed cholecalciferol (vitamin D3) 25 25 mcg PO QAM 08/13/20 08/29/23 mcg (1,000 unit) tablet (Vitamin D3) omeprazole 20 mg capsule,delayed 20 mg PO QAM 03/05/21 08/29/23 release atorvastatin 40 mg tablet 40 mg PO .@2100 06/02/23 08/29/23 albuterol sulfate 2.5 mg/3 mL 2.5 mg continuous nebulization QID 08/29/23 08/29/23 (0.083 %) solution for nebulization PRN Shortness Of Breath Or Wheezing Previous Rx's Medication Instructions Recorded lancing device #1 ea 07/30/19 lancets 30 gauge (Easy Touch #200 ea 09/11/20 Lancets) blood-glucose meter (Accu-Chek #1 ea 11/28/20 Guide Glucose Meter) lancets (Accu-Chek Fastclix Lancet #102 ea 11/28/20 Drum) escitalopram oxalate 10 mg tablet 10 mg PO QAM #90 tabs 09/04/22 walker with foldable sides and a #1 ea 10/01/22 tray apixaban 2.5 mg tablet (Eliquis) 2.5 mg PO BID #180 tabs 10/28/22 furosemide 40 mg tablet (Lasix) 40 mg PO QAM #90 tabs 10/28/22 blood sugar diagnostic (Accu-Chek #100 ea 01/21/23 Guide test strips) pen needle, diabetic 31 gauge x #100 ea 01/21/23 3/16" (BD Ultra-Fine Mini Pen Needle) flash glucose scanning reader #1 ea 04/14/23 (FreeStyle Efren 2 [place]) flash glucose sensor (FreeStyle #1 ea 04/14/23 Efren 2 Sensor kit) mirabegron 50 mg tablet,extended 50 mg PO DAILY #90 tabs 08/04/23 release 24 hr (Myrbetriq) metoprolol succinate 50 mg 50 mg PO DAILY #90 tabs 08/11/23 tablet,extended release 24 hr hydrocodone 5 mg-acetaminophen 325 2 tab PO Q6H PRN pain #20 tabs 08/27/23 mg tablet insulin glargine 100 unit/mL (3 10 unit (0.1 mL) subcut HS #15 mL 08/27/23 mL) subcutaneous pen (Lantus Solostar U-100 Insulin) prednisone 10 mg tablet See Rx Instructions PO DAILY #30 08/27/23 tabs albuterol sulfate 90 mcg/actuation 2 puff inhalation QID PRN 08/28/23 aerosol inhaler shortness of breath or wheezing #8.5 grams Results & Data (ED) Vital Signs Vital Signs - 24 hr 08/29/23 01:37 08/29/23 01:37 08/29/23 01:38 Temperature 36.5 C Temperature Source Oral Pulse Rate 157 H Pulse Rate [Apical] 109 H Respiratory Rate 22 22 Respiratory Effort / Characteristics Short of Breath Blood Pressure 49/38 L Blood Pressure [Right Arm] 89/65 L Blood Pressure Mean 41 Blood Pressure Mean [Right Arm] 73 Pulse Oximetry 95 Oxygen Delivery Method Nasal Cannula Nasal Cannula Oxygen Flow Rate 6 6 Sepsis Recent Fever Within 48 Hours No Sepsis New/Unexplained Change in Mental Status No Sepsis Action Taken by Nursing Physician Notified Oxygen Flow Rate - Titration Fraction of Inspired Oxygen - Titration Pulse Oximetry Post Tiitration 08/29/23 01:39 08/29/23 01:41 08/29/23 01:50 Temperature Temperature Source Pulse Rate 102 H Pulse Rate [Apical] 89 60 Respiratory Rate 20 25 H Respiratory Effort / Characteristics Blood Pressure Blood Pressure [Right Arm] 139/95 114/76 Blood Pressure Mean Blood Pressure Mean [Right Arm] 109 88 Pulse Oximetry 94 98 Oxygen Delivery Method Nasal Cannula Nasal Cannula Oxygen Flow Rate 6 4 Sepsis Recent Fever Within 48 Hours Sepsis New/Unexplained Change in Mental Status Sepsis Action Taken by Nursing Oxygen Flow Rate - Titration Fraction of Inspired Oxygen - Titration Pulse Oximetry Post Tiitration 08/29/23 01:52 08/29/23 01:56 08/29/23 02:00 Temperature Temperature Source Pulse Rate Pulse Rate [Apical] 60 Respiratory Rate 24 Respiratory Effort / Characteristics Blood Pressure Blood Pressure [Right Arm] 117/79 Blood Pressure Mean Blood Pressure Mean [Right Arm] 91 Pulse Oximetry 95 97 95 Oxygen Delivery Method Nasal Cannula Nasal Cannula Nasal Cannula Oxygen Flow Rate 6 4 4 Sepsis Recent Fever Within 48 Hours Sepsis New/Unexplained Change in Mental Status Sepsis Action Taken by Nursing Oxygen Flow Rate - Titration 4 Fraction of Inspired Oxygen - Titration Pulse Oximetry Post Tiitration 95 08/29/23 02:05 08/29/23 02:08 08/29/23 02:10 Temperature Temperature Source Pulse Rate Pulse Rate [Apical] 60 60 Respiratory Rate 20 22 Respiratory Effort / Characteristics Blood Pressure Blood Pressure [Right Arm] 117/81 110/81 Blood Pressure Mean Blood Pressure Mean [Right Arm] 93 90 Pulse Oximetry 88 L 88 L 100 Oxygen Delivery Method Nasal Cannula Nasal Cannula Nasal Cannula Oxygen Flow Rate 4 4 6 Sepsis Recent Fever Within 48 Hours Sepsis New/Unexplained Change in Mental Status Sepsis Action Taken by Nursing Oxygen Flow Rate - Titration 6 Fraction of Inspired Oxygen - Titration Pulse Oximetry Post Tiitration 91 08/29/23 02:17 08/29/23 02:17 08/29/23 02:20 Temperature Temperature Source Pulse Rate Pulse Rate [Apical] 60 60 Respiratory Rate 18 16 Respiratory Effort / Characteristics Blood Pressure Blood Pressure [Right Arm] 114/70 111/88 Blood Pressure Mean Blood Pressure Mean [Right Arm] 84 95 Pulse Oximetry 100 100 95 Oxygen Delivery Method Nasal Cannula Nasal Cannula Nasal Cannula Oxygen Flow Rate 4 6 4 Sepsis Recent Fever Within 48 Hours Sepsis New/Unexplained Change in Mental Status Sepsis Action Taken by Nursing Oxygen Flow Rate - Titration 4 Fraction of Inspired Oxygen - Titration 97 Pulse Oximetry Post Tiitration 08/29/23 02:25 08/29/23 02:30 08/29/23 02:35 Temperature Temperature Source Pulse Rate Pulse Rate [Apical] 60 60 60 Respiratory Rate 24 22 18 Respiratory Effort / Characteristics Blood Pressure Blood Pressure [Right Arm] 130/81 121/85 118/81 Blood Pressure Mean Blood Pressure Mean [Right Arm] 97 97 93 Pulse Oximetry 96 100 98 Oxygen Delivery Method Nasal Cannula Nasal Cannula Nasal Cannula Oxygen Flow Rate 4 4 4 Sepsis Recent Fever Within 48 Hours Sepsis New/Unexplained Change in Mental Status Sepsis Action Taken by Nursing Oxygen Flow Rate - Titration Fraction of Inspired Oxygen - Titration Pulse Oximetry Post Tiitration 08/29/23 02:45 08/29/23 03:00 Temperature Temperature Source Pulse Rate Pulse Rate [Apical] 60 60 Respiratory Rate 18 20 Respiratory Effort / Characteristics Blood Pressure Blood Pressure [Right Arm] 127/81 124/76 Blood Pressure Mean Blood Pressure Mean [Right Arm] 96 92 Pulse Oximetry 100 100 Oxygen Delivery Method Nasal Cannula Nasal Cannula Oxygen Flow Rate 4 4 Sepsis Recent Fever Within 48 Hours Sepsis New/Unexplained Change in Mental Status Sepsis Action Taken by Nursing Oxygen Flow Rate - Titration Fraction of Inspired Oxygen - Titration Pulse Oximetry Post Tiitration Laboratory Data 08/29/23 01:58 08/29/23 01:58 Lab Results 08/29/23 08/29/23 08/29/23 Range/Units 01:57 01:58 02:07 WBC 8.32 (4.8-10.8) K/ul RBC 4.65 (4.20-5.40) M/uL Hgb 13.6 (12.0-16.0) g/dl POC Hgb 14.3 (12.0-16.0) g/dl Hct 42.3 (37.0-47.0) % POC Hct 42 (37-47) % MCV 91.0 (80.0-100.0) fL MCH 29.2 (25.0-34.0) pg MCHC 32.2 (32.0-36.0) g/dL RDW Std Deviation 49.1 H (36.4-46.3) fL RDW Coeff of Chriss 15.2 H (11.5-14.5) % Plt Count 167 (130-400) K/uL MPV 10.4 (9.4-12.4) fL Immature Gran % (Auto) 0.2 % Neut % (Auto) 77.7 % Lymph % (Auto) 12.7 % Gonzales % (Auto) 7.3 % Eos % (Auto) 1.7 % Baso % (Auto) 0.4 % Neut # (Auto) 6.46 (1.40-6.50) K/uL Lymph # (Auto) 1.06 L (1.20-3.40) K/uL Gonzales # (Auto) 0.61 H (0.11-0.59) K/uL Eos # (Auto) 0.14 (0.00-0.50) K/uL Baso # (Auto) 0.03 (0.00-0.20) K/uL Immature Gran # (Auto) 0.02 (0.01-0.20) K/uL PT Cancelled INR Cancelled VBG pH 7.26 L (7.36-7.41) VBG pCO2 53 H (38-50) mmHg VBG pO2 36 mmHg VBG HCO3 24 mmol/L VBG O2 Saturation < 60.0 % VBG Base Excess -3.9 mEq/L POC Sodium 141 (135-144) mmol/L Sodium 139 (136-145) mmol/L POC Potassium 4.4 (3.3-5.0) mmol/L Potassium 4.1 (3.5-5.1) mmol/L POC Chloride 106 (101-112) mmol/L Chloride 107 (98-107) mmol/L Carbon Dioxide 23 (21-32) mmol/L POC Total CO2 27 (24-31) mmol/L Anion Gap 9 (3-11) POC Anion Gap 14.0 L (16-25) mmol/L POC BUN 48 H (7-18) mg/dl BUN 41 H (6-23) mg/dl Creatinine 2.33 H (0.6-1.2) mg/dl POC Creatinine 2.4 H (0.6-1.3) mg/dl Est Cr Clr Drug Dosing 16.4 ml/min Est GFR ( Amer) 22.3 ml/min Est GFR (Non-Af Amer) 19.3 ml/min BUN/Creatinine Ratio 17.6 (10-20) Glucose 206 H (70-99(Fasting)) mg/dl POC Glucose (other) 196 H (70-99) mg/dl Calcium 9.6 (8.6-10.3) mg/dl POC Ioniz Calcium Yelena 1.21 (1.12-1.32) mmol/l Magnesium 2.0 (1.7-2.4) mg/dl Total Bilirubin 0.9 (0.2-1.0) mg/dl AST 25 (13-39) U/L ALT 33 (7-52) U/L Alkaline Phosphatase 116 H (34-104) U/L Troponin I High Sens 54.1 H* (0-14) pg/ml B-Natriuretic Peptide 690 H (0-100) pg/ml Total Protein 6.6 (6.0-8.3) gm/dl Albumin 4.0 (3.4-5.0) gm/dl Globulin 2.6 (2.5-4.0) gm/dl Albumin/Globulin Ratio 1.5 (0.9-2) Lipase 53 (11-82) U/L SARS-CoV-2 (PCR) NEGATIVE (Negative) Influenza Type A (PCR) Negative (Neg) Influenza Type B (PCR) Negative (Neg) RSV (RT-PCR) Negative (Neg) Administered Medications Amiodarone HCl/Dextrose (Nexterone / D5w) 360 mg in 200 mls @ 33.333 mls/hr IV ONE ONE Stop: 08/29/23 08:11 Last Admin: 08/29/23 01:48 Dose: 1 mg/min, 33.3 mls/hr Documented By: AN Co-signed By: MIKAYLA Discontinued Medications Amiodarone HCl/Dextrose (Amiodarone 360mg / 200ml D5w) Confirm Administered Dose 360 mg IV .STK-MED ONE Stop: 08/29/23 01:37 Last Admin: 08/29/23 02:05 Dose: Not Given Documented By: AN Amiodarone HCl/Dextrose (Amiodarone 150mg / 100ml D5w) Confirm Administered Dose 150 mg IV .STK-MED ONE Stop: 08/29/23 01:37 Last Admin: 08/29/23 02:05 Dose: Not Given Documented By: AN Amiodarone HCl (Amiodarone Iv Bolus & Drip) 1 each IV NOW STA; Protocol Stop: 08/29/23 02:02 Last Admin: 08/29/23 02:05 Dose: 1 each Documented By: AN Sodium Chloride (Nss) 1,000 mls @ 999 mls/hr IV .Q1H1M ONE Stop: 08/29/23 02:42 Last Admin: 08/29/23 02:01 Dose: 999 mls/hr Documented By: AN Amiodarone HCl/Dextrose (Nexterone / D5w) 150 mg in 100 mls @ 600 mls/hr IV NOW STA Stop: 08/29/23 02:10 Last Infusion: 08/29/23 01:48 Dose: Infused Documented By: AN Co-signed By: MIKAYLA Admin: 08/29/23 01:39 Dose: 600 mls/hr Documented By: AN Co-signed By: MIKAYLA Miscellaneous (Stat Iv Infusion Titration Per Protocol) 1 each N/A NOW STA Stop: 08/29/23 02:02 Last Admin: 08/29/23 02:05 Dose: 1 each Documented By: AN Discharge Plan Visit Data Chief Complaint: Cardiac Assessment Stated Complaint: VTACH, SOB ED Provider: Ami Whitten Discharge Problem: Ventricular tachycardia, Dysrhythmia, Shortness of breath, Hypoxia, Elevated brain natriuretic peptide (BNP) level Forms Stand Alone Forms: My [facility] [employer] Prescriptions Prescriptions: No Action (DME) lancing device Misc See Rx Instructions .ROUTE .MEDSUPPLY Qty: 1 0RF Rx Instructions: As directed (DME) lancets [Easy Touch Lancets] 30 gauge misc See Rx Instructions .ROUTE .MEDSUPPLY Qty: 200 5RF Rx Instructions: TEST TWICE DAILY; Dx.code- E11.69 escitalopram oxalate 10 mg tablet 10 mg PO QAM Qty: 90 3RF furosemide [Lasix] 40 mg tablet 40 mg PO QAM Qty: 90 3RF Rx Instructions: 40 mg PO daily. Take additional dose daily for weight > 214 lbs or symptoms of fluid retention; (DME) Accu-Chek Guide test strips Strip See Rx Instructions .ROUTE .MEDSUPPLY Qty: 100 9RF Rx Instructions: Check BID, Dx code E11.9 (DME) pen needle, diabetic [BD Ultra-Fine Mini Pen Needle] 31 gauge x 3/16" needle See Dose Instructions .ROUTE .MEDSUPPLY Qty: 100 5RF Rx Instructions: INJECT INSULIN ONCE DAILY; DX CODE E11.69 Myrbetriq 50 mg tablet extended release 24 hr 50 mg PO DAILY Qty: 90 3RF albuterol sulfate 90 mcg/actuation HFA aerosol inhaler 2 puff inhalation QID PRN (Reason: shortness of breath or wheezing) Qty: 8.5 3RF (DME) blood-glucose meter [Accu-Chek Guide Glucose Meter] Misc See Rx Instructions .ROUTE .MEDSUPPLY Qty: 1 0RF Rx Instructions: Test BID, Dx code E11.9 (DME) lancets [Accu-Chek Fastclix Lancet Drum] Misc See Rx Instructions .ROUTE .MEDSUPPLY Qty: 102 3RF Rx Instructions: Check BSG BID, Dx code E11.9 omeprazole 20 mg capsule,delayed release(DR/EC) 20 mg PO QAM (DME) walker with foldable sides and a tray See Rx Instructions .Route .MEDSUPPLY Qty: 1 0RF Rx Instructions: As directed metoprolol succinate 50 mg tablet extended release 24 hr 50 mg PO DAILY Qty: 90 3RF (DME) FreeStyle Efren 2 [place] Misc See Rx Instructions .Route Qty: 1 0RF Rx Instructions: check BS 2-3 x a day (DME) FreeStyle Efren 2 Sensor Kit See Rx Instructions .Route Qty: 1 5RF Rx Instructions: test 2-3 x a day Eliquis 2.5 mg tablet 2.5 mg PO BID Qty: 180 3RF insulin glargine [Lantus Solostar U-100 Insulin] 100 unit/mL (3 mL) insulin pen 10 unit SUBCUT HS Qty: 15 5RF prednisone 10 mg tablet See Rx Instructions PO DAILY Qty: 30 0RF Rx Instructions: Take 4 tabs daily x 3 days, then take 3 tabs daily x 3 days, then take 2 tabs daily x 3 days, then take 1 tab daily x 3 days hydrocodone-acetaminophen 5-325 mg tablet 2 tab PO Q6H PRN (Reason: pain) Qty: 20 0RF Rx Instructions: max of 6 per day cholecalciferol (vitamin D3) [Vitamin D3] 25 mcg (1,000 unit) Tablet 25 mcg PO QAM atorvastatin 40 mg tablet 40 mg PO .@2100 albuterol sulfate 2.5 mg /3 mL (0.083 %) solution for nebulization 2.5 mg continuous nebulization QID PRN (Reason: Shortness Of Breath Or Wheezing) Referrals Referrals: Aimee Crook CRNP [Primary Care Provider] -
[2023-08-29] MEDS: AMIODARONE / D5W 360 MG/200 ML BAG IV ONE (01:48)
[2023-08-29] MEDS: SODIUM CHLORIDE 0.9% 1,000 ML IV ONE (02:01)
[2023-08-29] MEDS ORDERED: 0.2 MICRON FILTER SET 1 EACH IV STA (02:01)
[2023-08-29] MEDS: AMIODARONE 150MG / 100ML D5W IV ONE (02:05)
[2023-08-29] MEDS: AMIODARONE IV BOLUS & DRIP IV STA (02:05)
[2023-08-29] MEDS: STAT IV Infusion **Titration per Protocol STA (02:05)
[2023-08-29] MEDS: AMIODARONE 360MG / 200ML D5W IV ONE (02:05)
[2023-08-29 02:20] LABS: iSTAT Creatinine 2.4 mg/dl (0.6-1.3); iSTAT Hemoglobin 14.3 g/dl (12.0-16.0); iSTAT Ionized Calcium 1.21 mmol/l (1.12-1.32); iSTAT Potassium 4.4 mmol/L (3.3-5.0)
[2023-08-29 02:25] LABS: Basophils # (auto) 0.03 K/uL (0.00-0.20); Basophils % (auto) 0.4 %; Eosinophils # (auto) 0.14 K/uL (0.00-0.50); Eosinophils % (auto) 1.7 %; Hematocrit (blood only) 42.3 % (37.0-47.0); Hemoglobin 13.6 g/dl (12.0-16.0); Immature Granulocytes # (auto) 0.02 K/uL (0.01-0.20); Immature Granulocytes % (auto) 0.2 %; Lymphocytes # (auto) 1.06 K/uL (1.20-3.40); Lymphocytes % (auto) 12.7 %; Mean Corpuscular Hemoglobin 29.2 pg (25.0-34.0); Mean Corpuscular Hgb Conc 32.2 g/dL (32.0-36.0); Mean Platelet Volume 10.4 fL (9.4-12.4); Monocytes # (auto) 0.61 K/uL (0.11-0.59); Monocytes % (auto) 7.3 %; Neutrophils # (auto) 6.46 K/uL (1.40-6.50); Neutrophils % (auto) 77.7 %; Platelet Count 167 K/uL (130-400); RDW Coefficient of Variation 15.2 % (11.5-14.5); RDW Standard Deviation 49.1 fL (36.4-46.3); Red Blood Count 4.65 M/uL (4.20-5.40); White Blood Count 8.32 K/ul (4.8-10.8)
[2023-08-29 02:36] LABS: Albumin Globulin Ratio 1.5 (0.9-2); BUN Creatinine Ratio 17.6 (10-20); Bilirubin,Total 0.9 mg/dl (0.2-1.0); Calcium 9.6 mg/dl (8.6-10.3); Creatinine Clr Calc Pharmacy 16.4 ml/min; Est GFR (African American) 22.3 ml/min; Est GFR (Non-African American) 19.3 ml/min; Globulin 2.6 gm/dl (2.5-4.0); Potassium 4.1 mmol/L (3.5-5.1); Total Protein 6.6 gm/dl (6.0-8.3)
[2023-08-29 02:42] LABS: Base Excess VBG -3.9 mEq/L; HCO3 VBG 24 mmol/L; Oxygen Saturation VBG < 60.0 %; PCO2 VBG 53 mmHg (38-50); PO2 VBG 36 mmHg; pH VBG 7.26 (7.36-7.41)
[2023-08-29 02:58] LABS: Influenza A virus by PCR Negative (Neg); Influenza B virus by PCR Negative (Neg); RSV by PCR Negative (Neg); SARS CoV2 RNA(COVID-19) Ceph NEGATIVE (Negative)
[2023-08-29 03:22] LABS: Troponin I High Sensitivity 54.1 pg/ml (0-14)
--- NOTE | 2023-08-29 04:10 | History & Physical Report ---
Date of Service August 29, 2023 Assessment & Plan (1) Ventricular tachycardia: (2) Implantable cardioverter-defibrillator discharge: (3) Hyperlipidemia: (4) Hypertension: (5) CHF (congestive heart failure), NYHA class III: (6) Cardiomyopathy: (7) Coronary artery disease: (8) Biventricular ICD (implantable cardioverter-defibrillator) in place: (9) Chronic kidney disease, stage 4 (severe): (10) AF (paroxysmal atrial fibrillation): (11) Admitted to intensive care unit: Plan Ventricular tachycardia/status post implantable cardioverter defibrillator discharge/cardiomyopathy- Continue amiodarone bolus/drip per protocol Continue metoprolol with hold parameters Continue apixaban Admit to intensive care unit Order complete echocardiogram Calcium 4.1 and magnesium 2.0 on admission Patient started on prednisone 2 days ago for low back pain with lower extremity radiculopathy, will be held Troponin 54.1, will be followed serially Serial laboratories CHF/NYHA stage III- Hold furosemide due to relative dehydration Acute kidney injury superimposed on CKD- Creatinine 2.33 upon admission, with base 1.99 Received 1 L normal saline from the ED Place on NSS at 60 mL/h x 500 mL Follow serial renal function panel and magnesium levels Diabetes mellitus Continue insulin glargine 10 units subcu at bedtime Placed on Accu-Cheks with NovoLog SSI Acute on chronic low back pain/lower extremity radiculopathy- Acetaminophen 650 mg by mouth every 6 hours as needed for mild pain or fever Hydrocodone 5/325 2 by mouth every 6 hours as needed for moderate Asthma- Continue albuterol nebulizer every 4 hours as needed Bladder spasms/incontinence- Continue mirabegron Hyperlipidemia- Continue atorvastatin Depression- Continue Lexapro History of Present Illness Chief Complaint: The patient was seen by EMS at her home due to shortness of breath, and en route to the hospital she became unresponsive, having gone into V. tach, was shocked by her pacemaker/defibrillator, was given 150 mg of amiodarone IV push, and then had a second episode of V. tach with shock by her internal defibrillator 3 minutes later. She was found to be mildly hypoxic, was placed on nasal cannula oxygen, and presented to the emergency department. Upon arrival to the ED, patient developed V. tach again, with rate up to 160, and was about to be externally shocked but she spontaneously broke. She was started on amiodarone samira nathalie/drip in the ED, was given 1 L normal saline bolus, and was then presented to the hospitalist service for admission. Primary Care Provider: COOPER Cuevas The patient is a 77-year-old female with a past medical history including ventricular tachycardia, presence of biventricular ICD, cervicalgia, chronic low back pain with radiculopathy, hypertension, hyperlipidemia, CAD, cardiomyopathy, CHF NYHA class III, CKD stage IV, diabetes mellitus, DIAM[place], paroxysmal atrial fibrillation, esophageal dysmotility and urinary urge incontinence. She presents to the emergency department as noted above. She will be continued on amiodarone drip, admitted to the ICU with cardiology consult. The patient had recently had an injury to her legs, and was having worsening low back pain with radiculopathy symptoms, and had been placed on a course of prednisone tapering dose 2 days ago. She is also taking [place] as needed Allergies Allergy/AdvReac Type Severity Reaction Status Date / Time aspirin Allergy Intermediate HIVES Verified 08/27/23 10:21 Iodinated Contrast Media Allergy Intermediate HIVES - Verified 08/27/23 10:21 MRI DYE levofloxacin Allergy Intermediate HIVES, Verified 08/27/23 10:21 VEIN IRRITATION W/IV LEVAQUIN erythromycin base Allergy Unknown UNKNOWN Verified 08/27/23 10:21 Home Medications Medication Instructions Recorded Confirmed Type lancing device #1 ea 07/30/19 08/27/23 Rx cholecalciferol (vitamin D3) 25 25 mcg PO QAM 08/13/20 08/29/23 History mcg (1,000 unit) tablet (Vitamin D3) lancets 30 gauge (Easy Touch #200 ea 09/11/20 08/27/23 Rx Lancets) blood-glucose meter (Accu-Chek #1 ea 11/28/20 08/27/23 Rx Guide Glucose Meter) lancets (Accu-Chek Fastclix Lancet #102 ea 11/28/20 08/27/23 Rx Drum) omeprazole 20 mg capsule,delayed 20 mg PO QAM 03/05/21 08/29/23 History release escitalopram oxalate 10 mg tablet 10 mg PO QAM #90 tabs 09/04/22 08/29/23 Rx walker with foldable sides and a #1 ea 10/01/22 08/27/23 Rx tray apixaban 2.5 mg tablet (Eliquis) 2.5 mg PO BID #180 tabs 10/28/22 08/29/23 Rx furosemide 40 mg tablet (Lasix) 40 mg PO QAM #90 tabs 10/28/22 08/29/23 Rx blood sugar diagnostic (Accu-Chek #100 ea 01/21/23 08/27/23 Rx Guide test strips) pen needle, diabetic 31 gauge x #100 ea 01/21/23 08/27/23 Rx 3/16" (BD Ultra-Fine Mini Pen Needle) flash glucose scanning reader #1 ea 04/14/23 08/27/23 Rx (FreeStyle [place] 2 [place]) flash glucose sensor (FreeStyle #1 ea 04/14/23 08/27/23 Rx Efren 2 Sensor kit) atorvastatin 40 mg tablet 40 mg PO .@2100 06/02/23 08/29/23 History mirabegron 50 mg tablet,extended 50 mg PO DAILY #90 tabs 08/04/23 08/29/23 Rx release 24 hr (Myrbetriq) metoprolol succinate 50 mg 50 mg PO DAILY #90 tabs 08/11/23 08/29/23 Rx tablet,extended release 24 hr hydrocodone 5 mg-acetaminophen 325 2 tab PO Q6H PRN pain #20 tabs 08/27/23 08/29/23 Rx mg tablet insulin glargine 100 unit/mL (3 10 unit (0.1 mL) subcut HS #15 mL 08/27/23 08/29/23 Rx mL) subcutaneous pen (Lantus Solostar U-100 Insulin) prednisone 10 mg tablet See Rx Instructions PO DAILY #30 08/27/23 08/29/23 Rx tabs albuterol sulfate 90 mcg/actuation 2 puff inhalation QID PRN 08/28/23 08/29/23 Rx aerosol inhaler shortness of breath or wheezing #8.5 grams albuterol sulfate 2.5 mg/3 mL 2.5 mg continuous nebulization QID 08/29/23 08/29/23 History (0.083 %) solution for nebulization PRN Shortness Of Breath Or Wheezing Past Med/Surg History Medical History COVID-19 On anticoagulant therapy Morbid obesity with BMI of 40.0-44.9, adult Presence of combination internal cardiac defibrillator (ICD) and pacemaker Cardiomyopathy History of ventricular tachycardia Sleep apnea On home oxygen therapy Poor historian Osteoarthritis History of kidney stones CKD (chronic kidney disease) HLD (hyperlipidemia) HTN (hypertension) GERD (gastroesophageal reflux disease) Depression DM type 2 (diabetes mellitus, type 2) CHF (congestive heart failure) Colitis COPD (chronic obstructive pulmonary disease) Ileitis Endometrial cancer, grade I Esophageal dysmotility AF (paroxysmal atrial fibrillation) CVA (cerebral vascular accident) (11/23/10) Urge incontinence of urine 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) Surgical History History of cardiac radiofrequency ablation History of esophagogastroduodenoscopy (EGD) History of colonoscopy History of carpal tunnel release of both wrists History of cystoscopy History of left cataract surgery History of History of cholecystectomy History of appendectomy Hx of CABG History of aortic aneurysm repair H/O aortic valve replacement Family History Mother Diabetes Myocardial infarction Sister Diabetes Son Hypertension Denies family history of Ovarian cancer Prostate cancer Breast cancer Lung cancer Colorectal cancer Cancer Social History Smoking Status: Never smoker Second Hand Exposure: No; Do You Dip or Chew Tobacco: No; Hx Alcohol Use: No Hx Substance Use: No Preferred Language: Lao Communication Ability: Effective Visual Impairment: Limited Hearing Ability: Normal Work [employer] Required: No Beliefs That Will Affect Care: None marital status: / Current Living Situation: Family current occupational status: disabled How many Children do You have: 3 Feels Safe at Home: Yes Childhood Exposure to Second-Hand Smoke: No Diet: low salt and regular caffeine: Yes (soda) during the past year weight has: remained stable Dental Care, Regularly: No Physical Activity Frequency: Does not Exercise Seatbelt Use: sometimes Sunscreen Use: No Assistive Devices: Glasses, Walker and Wheelchair Review of Systems Review of Systems: The patient denies chest pain, palpitations, cough, lower extremity swelling, sore throat, fevers, chills, sweats, nausea, vomiting, diarrhea , constipation, abdominal pain, pelvic pain, blood in urine or stool, dysuria, urinary frequency or urgency, lightheadedness, dizziness, headache, rash, abnormal bruising or bleeding, imbalance, focal weakness, numbness or tingling in arms or legs, generalized arthralgias or myalgias, neck pain, or night sweats. The review of systems is otherwise negative other than for that already noted above, and at least 10 systems have been reviewed. Physical Exam Physical Exam: The patient is awake, alert and oriented 3, well developed and well nourished, normocephalic and atraumatic, lying in bed and in no acute distress. HEENT--PERRL, EOMI, mucous membranes and oropharynx mildly dry. Neck--supple. No JVD. No bruits. Thyroid normal, trachea midline, no adenopathy. Heart--intermittent paced and atrial fibrillation. No murmurs, rubs or gallops. Lungs--clear bilaterally, no respiratory distress, no accessory muscle use. Abdomen--normal bowel sounds and soft. Nontender. Nondistended Extremities--no cyanosis or clubbing. No edema. Dermatologic--normal skin turgor, normal color, no abnormal lymph nodes, no rash. Neurologic--cranial nerves II through XII grossly intact. Rheumatologic--normal range of motion. Psychiatric--normal affect. Results & Data Results & Data Vital Signs (Past 12 Hours) Vital Signs Temp Pulse Pulse Resp BP BP Pulse Ox 08/29/23 03:56 60 18 113/79 97 08/29/23 03:30 60 22 100 08/29/23 03:28 60 19 138/65 100 08/29/23 03:01 60 18 124/76 100 08/29/23 03:00 60 20 124/76 100 08/29/23 02:46 60 127/81 100 08/29/23 02:45 60 18 127/81 100 08/29/23 02:35 60 18 118/81 98 08/29/23 02:30 60 22 121/85 100 08/29/23 02:25 60 24 130/81 96 08/29/23 02:20 60 16 111/88 95 08/29/23 02:17 100 08/29/23 02:17 60 18 114/70 100 08/29/23 02:10 60 22 110/81 100 08/29/23 02:08 88 L 08/29/23 02:05 60 20 117/81 88 L 08/29/23 02:00 60 24 117/79 95 08/29/23 01:56 97 08/29/23 01:52 95 08/29/23 01:50 60 25 H 114/76 98 08/29/23 01:41 89 20 139/95 94 08/29/23 01:39 102 H 08/29/23 01:38 109 H 22 89/65 L 08/29/23 01:37 36.5 C 157 H 22 49/38 L 95 O2 Del Method O2 Flow Rate 08/29/23 03:56 Nasal Cannula 4 08/29/23 03:30 08/29/23 03:28 Nasal Cannula 4 08/29/23 03:01 Nasal Cannula 4 08/29/23 03:00 Nasal Cannula 4 08/29/23 02:46 Nasal Cannula 4 08/29/23 02:45 Nasal Cannula 4 08/29/23 02:35 Nasal Cannula 4 08/29/23 02:30 Nasal Cannula 4 08/29/23 02:25 Nasal Cannula 4 08/29/23 02:20 Nasal Cannula 4 08/29/23 02:17 Nasal Cannula 6 08/29/23 02:17 Nasal Cannula 4 08/29/23 02:10 Nasal Cannula 6 08/29/23 02:08 Nasal Cannula 4 08/29/23 02:05 Nasal Cannula 4 08/29/23 02:00 Nasal Cannula 4 08/29/23 01:56 Nasal Cannula 4 08/29/23 01:52 Nasal Cannula 6 08/29/23 01:50 Nasal Cannula 4 08/29/23 01:41 Nasal Cannula 6 08/29/23 01:39 08/29/23 01:38 Nasal Cannula 6 08/29/23 01:37 Nasal Cannula 6 Laboratory Results Laboratory Results WBC 8.32 K/ul (4.8-10.8) 08/29/23 01:58 RBC 4.65 M/uL (4.20-5.40) 08/29/23 01:58 Hgb 13.6 g/dl (12.0-16.0) 08/29/23 01:58 POC Hgb 14.3 g/dl (12.0-16.0) 08/29/23 02:07 Hct 42.3 % (37.0-47.0) 08/29/23 01:58 POC Hct 42 % (37-47) 08/29/23 02:07 MCV 91.0 fL (80.0-100.0) 08/29/23 01:58 MCH 29.2 pg (25.0-34.0) 08/29/23 01:58 MCHC 32.2 g/dL (32.0-36.0) 08/29/23 01:58 RDW Std Deviation 49.1 fL (36.4-46.3) H 08/29/23 01:58 RDW Coeff of Chriss 15.2 % (11.5-14.5) H 08/29/23 01:58 Plt Count 167 K/uL (130-400) 08/29/23 01:58 MPV 10.4 fL (9.4-12.4) 08/29/23 01:58 Immature Gran % (Auto) 0.2 % 08/29/23 01:58 Neut % (Auto) 77.7 % 08/29/23 01:58 Lymph % (Auto) 12.7 % 08/29/23 01:58 [place] % (Auto) 7.3 % 08/29/23 01:58 Eos % (Auto) 1.7 % 08/29/23 01:58 Baso % (Auto) 0.4 % 08/29/23 01:58 Neut # (Auto) 6.46 K/uL (1.40-6.50) 08/29/23 01:58 Lymph # (Auto) 1.06 K/uL (1.20-3.40) L 08/29/23 01:58 [place] # (Auto) 0.61 K/uL (0.11-0.59) H 08/29/23 01:58 Eos # (Auto) 0.14 K/uL (0.00-0.50) 08/29/23 01:58 Baso # (Auto) 0.03 K/uL (0.00-0.20) 08/29/23 01:58 Immature Gran # (Auto) 0.02 K/uL (0.01-0.20) 08/29/23 01:58 PT Cancelled 08/29/23 01:58 INR Cancelled 08/29/23 01:58 VBG pH 7.26 (7.36-7.41) L 08/29/23 01:57 VBG pCO2 53 mmHg (38-50) H 08/29/23 01:57 VBG pO2 36 mmHg 08/29/23 01:57 VBG HCO3 24 mmol/L 08/29/23 01:57 VBG O2 Saturation < 60.0 % 08/29/23 01:57 VBG Base Excess -3.9 mEq/L 08/29/23 01:57 POC Sodium 141 mmol/L (135-144) 08/29/23 02:07 Sodium 139 mmol/L (136-145) 08/29/23 01:58 POC Potassium 4.4 mmol/L (3.3-5.0) 08/29/23 02:07 Potassium 4.1 mmol/L (3.5-5.1) 08/29/23 01:58 POC Chloride 106 mmol/L (101-112) 08/29/23 02:07 Chloride 107 mmol/L (98-107) 08/29/23 01:58 Carbon Dioxide 23 mmol/L (21-32) 08/29/23 01:58 POC Total CO2 27 mmol/L (24-31) 08/29/23 02:07 Anion Gap 9 (3-11) 08/29/23 01:58 POC Anion Gap 14.0 mmol/L (16-25) L 08/29/23 02:07 POC BUN 48 mg/dl (7-18) H 08/29/23 02:07 BUN 41 mg/dl (6-23) H 08/29/23 01:58 Creatinine 2.33 mg/dl (0.6-1.2) H 08/29/23 01:58 POC Creatinine 2.4 mg/dl (0.6-1.3) H 08/29/23 02:07 Est Cr Clr Drug Dosing 16.4 ml/min 08/29/23 01:58 Est GFR ( Amer) 22.3 ml/min 08/29/23 01:58 Est GFR (Non-Af Amer) 19.3 ml/min 08/29/23 01:58 BUN/Creatinine Ratio 17.6 (10-20) 08/29/23 01:58 Glucose 206 mg/dl (70-99(Fasting)) H 08/29/23 01:58 POC Glucose (other) 196 mg/dl (70-99) H 08/29/23 02:07 Calcium 9.6 mg/dl (8.6-10.3) 08/29/23 01:58 POC Ioniz Calcium [place] 1.21 mmol/l (1.12-1.32) 08/29/23 02:07 Magnesium 2.0 mg/dl (1.7-2.4) 08/29/23 01:58 Total Bilirubin 0.9 mg/dl (0.2-1.0) 08/29/23 01:58 AST 25 U/L (13-39) 08/29/23 01:58 ALT 33 U/L (7-52) 08/29/23 01:58 Alkaline Phosphatase 116 U/L (34-104) H 08/29/23 01:58 Troponin I High Sens 54.1 pg/ml (0-14) H* 08/29/23 01:58 B-Natriuretic Peptide 690 pg/ml (0-100) H 08/29/23 01:58 Total Protein 6.6 gm/dl (6.0-8.3) 08/29/23 01:58 Albumin 4.0 gm/dl (3.4-5.0) 08/29/23 01:58 Globulin 2.6 gm/dl (2.5-4.0) 08/29/23 01:58 Albumin/Globulin Ratio 1.5 (0.9-2) 08/29/23 01:58 Lipase 53 U/L (11-82) 08/29/23 01:58 SARS-CoV-2 (PCR) NEGATIVE (Negative) 08/29/23 01:58 Influenza Type A (PCR) Negative (Neg) 08/29/23 01:58 Influenza Type B (PCR) Negative (Neg) 08/29/23 01:58 RSV (RT-PCR) Negative (Neg) 08/29/23 01:58 Code Status & VTE Plan Code Status Full code VTE Prophylaxis Plan VTE Prophylaxis will be ordered: Yes PG Care Time/CCT Total # of Minutes Spent Total Time Spent with Patient: Total time spent is greater than 50% in coordination of care (as documented) at patient's floor/unit and/or counseling patient: 45 minutes Coding Level of Care Code 07151 INT INP/OBS CARE 3/75MIN Diagnoses Ventricular tachycardia I47.20 Implantable cardioverter-defibrillator discharge Z45.02 Hyperlipidemia, unspecified hyperlipidemia type E78.5 Hyperlipidemia type: unspecified Essential hypertension I10 Hypertension type: essential hypertension Acute on chronic systolic congestive heart failure, NYHA class 3 I50.23 Congestive heart failure type: systolic Congestive heart failure chronicity: acute on chronic Cardiomyopathy I42.9 Coronary artery disease involving [place] coronary artery of [place] heart without angina pectoris I25.10 Coronary Disease-Associated Artery/Lesion type: [place] artery [place] vs. transplanted heart: [place] heart Associated angina: without angina Biventricular ICD (implantable cardioverter-defibrillator) in place Z95.810 Chronic kidney disease, stage 4 (severe) N18.4 AF (paroxysmal atrial fibrillation) I48.0 Admitted to intensive care unit Z78.9 (3) Hyperlipidemia Hyperlipidemia type: unspecified Qualified Code(s): E78.5 - Hyperlipidemia, unspecified (4) Hypertension Hypertension type: essential hypertension Qualified Code(s): I10 - Essential (primary) hypertension (5) CHF (congestive heart failure), NYHA class III Congestive heart failure type: systolic Congestive heart failure chronicity: acute on chronic Qualified Code(s): I50.23 - Acute on chronic systolic (congestive) heart failure (7) Coronary artery disease Coronary Disease-Associated Artery/Lesion type: [place] artery [place] vs. transplanted heart: [place] heart Associated angina: without angina Qualified Code(s): I25.10 - Atherosclerotic heart disease of [place] coronary artery without angina pectoris
--- NOTE | 2023-08-29 04:30 | Billing Data ---
Date of Service August 29, 2023 Coding Level of Care Code 04935 CRITICAL CARE
[2023-08-29] MEDS ORDERED: GLUCOSE 40% GEL 15 GM TUBE PO PRN (04:42)
[2023-08-29] MEDS ORDERED: DEXTROSE 50% 50 ML SYRINGE IV PRN (04:42)
[2023-08-29] MEDS ORDERED: GLUCAGON FOR INJ 1 MG VIAL SQ PRN (04:42)
[2023-08-29] MEDS ORDERED: ALBUTEROL 0.083% NEBU SOLN 3 ML VIAL NEB PRN (04:42)
[2023-08-29] MEDS ORDERED: GLUCOSE 10 TAB/TUBE PO PRN (04:42)
[2023-08-29 05:16] LABS: INR 1.2 (0.9-1.1); Prothrombin Time 12.8 Seconds (9.0-12.0)
[2023-08-29] MEDS: SODIUM CHLORIDE 0.9% 1,000 ML IV SCH (05:37)
--- NOTE | 2023-08-29 06:16 | Critical Care Consultation ---
Date of Consultation August 29, 2023 Assessment & Plan (1) Ventricular tachycardia: Impression: 77-year-old female with extensive cardiac history presents to the ICU following 3 episodes of V. tach and 2 defibrillations with AICD, currently on amiodarone drip. Neuro - [facility] ICU: Negative Radiculopathyprednisone on hold. Continue Pocahontas as needed Cardiac - Ventricular tachycardiastatus post AICD defibrillation x 2, with additional event with spontaneous conversion. Interrogation of AICD with confirmed V. tach. -Continue amiodarone drip -Maximize electrolytes -Continue MTP -Cardiology consult pending -Continuous monitoring on telemetry. Pacer pads to remain on patient. Monitoring in ICU Systolic heart failurehistory of nonischemic cardiomyopathy and AICD. Additional cardiac history of aortic dissection s/p aortic arch repair, bioprosthetic AVR, and CABG x 1 -Appears stable on exam. Currently euvolemic -TTE pending -Continue diuresis -Cardiology consult pending Atrial fibrillationcurrently in paced rhythm. Continue MTP, will Eliquis. Continuous monitor on telemetry Respiratory - Hypoxialikely pulmonary edema and following V. tach/cardiac event with underlying cardiomyopathy. Currently maintaining oxygen saturation on 2 L nasal cannula. -Continue Lasix for now -Wean as tolerated -Continuous monitoring pulse ox COPDstable, continue home nebs GI - Heart healthy, carb consistent diet Continue PPI RENAL/LYTES - CKD stage IIIcreatinine 2.33 with previous baseline ranging 1.6-2 -Appears euvolemic on exam. Continue Lasix for now -Monitor creatinine with routine BMPs. Replete electrolytes as indicated -Hold on fluid resuscitation for now given CHF/hypoxia -Avoid nephrotoxins and renally adjust medications - Strict I's and O's ENDO - DM type IIhyperglycemia likely exacerbated by steroids and dextrose infusion with amiodarone drip. -Continue Lantus/sliding scale for now. ICU hyperglycemic protocol HEME - H&H stable, monitor routine CBC ID - No indication for infectious process at this LINES/IV ACCESS - Peripheral IVs DVT PROPHYLAXIS - SCDs, Eliquis CODE STATUS: Full code, as confirmed by patient Thank you for allowing us to participate in the care of this patient. Please refer to my attending physician's documentation for any further recommendations. (2) Shortness of breath: (3) Hypoxia: (4) Implantable cardioverter-defibrillator discharge: (5) Lumbar radiculopathy, right: (6) Hypertension: (7) Hyperlipidemia: (8) Coronary artery disease: (9) CHF (congestive heart failure), NYHA class III: (10) Chronic kidney disease, stage 4 (severe): (11) Diabetes mellitus type 2 in obese: (12) AF (paroxysmal atrial fibrillation): (13) COPD (chronic obstructive pulmonary disease): Supervising Physician Co-Signing Physician Notes Patient seen and examined. MR ghassan. Discussed on multidisciplinary rounds and with bedside critical care nurse as well as with critical care APRIL. Agree with assessment plan as noted. Patient has cardiomyopathy with AICD which is gone off. She is currently hemodynamically stable with no neurological sequelae. She is currently on IV amiodarone. Cardiology consultation is pending. Will defer to them about transition to oral amiodarone. Her electrolytes appear stable. Doubt an ischemic event. Will ask PT and OT to evaluate the patient. Her other medical issues appear relatively stable. Will ask PT and OT to conduct evaluations for the patient. Venous blood gas did show mixed metabolic and respiratory acidosis but her bicarb is normal. Will follow clinically at this point in time with low threshold to repeat should the patient's clinical condition worsen. She does have chronic kidney disease which is slightly worse today. She is followed in the outpatient setting by Dr. Gutiérrez and will obtain nephrology consultation should her numbers deteriorate. Ultimate disposition will depend on the cardiology evaluation. Critical care will sign off when she transitions to telemetry. History of Present Illness Attending Physician: Lewis Pettit MD History of Present Illness Patient is a 77-year-old female with past medical history significant for systolic heart failure, pacer/AICD, COPD, HTN, HLD, CAD, CKD stage IV, DM type II, paroxysmal A-fib (anticoagulated on Eliquis), who presented to the emergency department earlier this morning. Patient has been short of breath at home throughout the day and called 911. In route, patient became unresponsive with V. tach and was shocked with her ICD. She was given amiodarone 150 mg push at that time, and then had a second episode of V. tach with again shock from ICD. She was started on amiodarone drip. She again had episode of V. tach with a rate of 160, but spontaneously converted to paced rhythm prior to defibrillation as rate for shock set at 165. Patient noted to be mildly hypoxic, but hemodynamically stable. She does report ongoing pain in her right knee for which she was seen on the by her primary care physician, and was prescribed prednisone and Pocahontas as she has degenerative changes and radiculopathy of the spine. On arrival to the ICU the patient is alert and oriented and appears comfortable without distress. She reports a mild headache. SOB has improved, and she does not display labored breathing. She denies recent illness or fevers, sore throat, cough, chest pain or palpitations, abdominal pain, nausea or vomiting, diarrhea, changes in urine frequency or burning, changes in gait. She does report previous swelling of the right lower extremity, which has somewhat improved. Patient to remain in ICU at this time for further monitoring. Cardiology con sult pending. Allergies Allergy/AdvReac Type Severity Reaction Status Date / Time aspirin Allergy Intermediate HIVES Verified 08/27/23 10:21 Iodinated Contrast Media Allergy Intermediate HIVES - Verified 08/27/23 10:21 MRI DYE levofloxacin Allergy Intermediate HIVES, Verified 08/27/23 10:21 VEIN IRRITATION W/IV LEVAQUIN erythromycin base Allergy Unknown UNKNOWN Verified 08/27/23 10:21 Home Medications Medication Instructions Recorded Confirmed Type lancing device #1 ea 07/30/19 08/27/23 Rx cholecalciferol (vitamin D3) 25 25 mcg PO QAM 08/13/20 08/29/23 History mcg (1,000 unit) tablet (Vitamin D3) lancets 30 gauge (Easy Touch #200 ea 09/11/20 08/27/23 Rx Lancets) blood-glucose meter (Accu-Chek #1 ea 11/28/20 08/27/23 Rx Guide Glucose Meter) lancets (Accu-Chek Fastclix Lancet #102 ea 11/28/20 08/27/23 Rx Drum) omeprazole 20 mg capsule,delayed 20 mg PO QAM 03/05/21 08/29/23 History release escitalopram oxalate 10 mg tablet 10 mg PO QAM #90 tabs 09/04/22 08/29/23 Rx walker with foldable sides and a #1 ea 10/01/22 08/27/23 Rx tray apixaban 2.5 mg tablet (Eliquis) 2.5 mg PO BID #180 tabs 10/28/22 08/29/23 Rx furosemide 40 mg tablet (Lasix) 40 mg PO QAM #90 tabs 10/28/22 08/29/23 Rx blood sugar diagnostic (Accu-Chek #100 ea 01/21/23 08/27/23 Rx Guide test strips) pen needle, diabetic 31 gauge x #100 ea 01/21/23 08/27/23 Rx 3/16" (BD Ultra-Fine Mini Pen Needle) flash glucose scanning reader #1 ea 04/14/23 08/27/23 Rx (FreeStyle Efren 2 Ama) flash glucose sensor (FreeStyle #1 ea 04/14/23 08/27/23 Rx Efren 2 Sensor kit) atorvastatin 40 mg tablet 40 mg PO .@2100 06/02/23 08/29/23 History mirabegron 50 mg tablet,extended 50 mg PO DAILY #90 tabs 08/04/23 08/29/23 Rx release 24 hr (Myrbetriq) metoprolol succinate 50 mg 50 mg PO DAILY #90 tabs 08/11/23 08/29/23 Rx tablet,extended release 24 hr hydrocodone 5 mg-acetaminophen 325 2 tab PO Q6H PRN pain #20 tabs 08/27/23 08/29/23 Rx mg tablet insulin glargine 100 unit/mL (3 10 unit (0.1 mL) subcut HS #15 mL 08/27/23 08/29/23 Rx mL) subcutaneous pen (Lantus Solostar U-100 Insulin) prednisone 10 mg tablet See Rx Instructions PO DAILY #30 08/27/23 08/29/23 Rx tabs albuterol sulfate 90 mcg/actuation 2 puff inhalation QID PRN 08/28/23 08/29/23 Rx aerosol inhaler shortness of breath or wheezing #8.5 grams albuterol sulfate 2.5 mg/3 mL 2.5 mg continuous nebulization QID 08/29/23 08/29/23 History (0.083 %) solution for nebulization PRN Shortness Of Breath Or Wheezing Patient History Medical History COVID-19 On anticoagulant therapy Morbid obesity with BMI of 40.0-44.9, adult Presence of combination internal cardiac defibrillator (ICD) and pacemaker Cardiomyopathy History of ventricular tachycardia Sleep apnea On home oxygen therapy Poor historian Osteoarthritis History of kidney stones CKD (chronic kidney disease) HLD (hyperlipidemia) HTN (hypertension) GERD (gastroesophageal reflux disease) Depression DM type 2 (diabetes mellitus, type 2) CHF (congestive heart failure) Colitis COPD (chronic obstructive pulmonary disease) Ileitis Endometrial cancer, grade I Esophageal dysmotility AF (paroxysmal atrial fibrillation) CVA (cerebral vascular accident) (11/23/10) Urge incontinence of urine 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) Surgical History History of cardiac radiofrequency ablation History of esophagogastroduodenoscopy (EGD) History of colonoscopy History of carpal tunnel release of both wrists History of cystoscopy History of left cataract surgery History of History of cholecystectomy History of appendectomy Hx of CABG History of aortic aneurysm repair H/O aortic valve replacement Family History Mother Diabetes Myocardial infarction Sister Diabetes Son Hypertension Denies family history of Ovarian cancer Prostate cancer Breast cancer Lung cancer Colorectal cancer Cancer Social History Smoking Status: Never smoker Second Hand Exposure: No; Do You Dip or Chew Tobacco: No; Hx Alcohol Use: No Hx Substance Use: No Preferred Language: [place]ian Communication Ability: Effective Visual Impairment: Limited Hearing Ability: Normal Music Engraver Required: No Beliefs That Will Affect Care: None marital status: / Current Living Situation: Family Current Living Situation Comment: Patient lives with grandchildren current occupational status: disabled How many Children do You have: 3 Feels Safe at Home: Yes Childhood Exposure to Second-Hand Smoke: No Diet: low salt and regular caffeine: Yes (soda) during the past year weight has: remained stable Dental Care, Regularly: No Physical Activity Frequency: Does not Exercise Seatbelt Use: sometimes Sunscreen Use: No Assistive Devices: Glasses, Walker and Wheelchair Review of Systems Review of Systems: All systems reviewed & are unremarkable except as noted in HPI & below Physical Exam Constitutional: cooperative and comfortable; no acute distress Eyes: PERRL, conjunctivae normal, anicteric sclerae ENMT: external ear and nose normal, oropharynx normal Neck: trachea midline, no thyromegaly Respiratory: normal respiratory effort, lungs clear to auscultation Cardiovascular: Rate/Rhythm: regular rate and regular rhythm Heart Sounds: + murmur Extremities: no edema Gastrointestinal (Abdomen): normal bowel sounds, soft, nontender, no hepatosplenomegaly Musculoskeletal: no cyanosis or clubbing, extremities motor strength 5/5 Skin: no rashes, warm and dry Neurologic: PERRL, EOMI, accommodation nl, no face palsy, no dysarthria Psychiatric: A+Ox3, euthymic affect Results & Data Results & Data Vital Signs (Past 12 Hours) Vital Signs Temp Pulse Pulse Resp BP BP BP 08/29/23 04:52 36.7 C 66 112/75 08/29/23 04:43 08/29/23 04:42 08/29/23 03:56 60 18 113/79 08/29/23 03:30 60 22 08/29/23 03:28 60 19 138/65 08/29/23 03:01 60 18 124/76 08/29/23 03:00 60 20 124/76 08/29/23 02:46 60 127/81 08/29/23 02:45 60 18 127/81 08/29/23 02:35 60 18 118/81 08/29/23 02:30 60 22 121/85 08/29/23 02:25 60 24 130/81 08/29/23 02:20 60 16 111/88 08/29/23 02:17 08/29/23 02:17 60 18 114/70 08/29/23 02:10 60 22 110/81 08/29/23 02:08 08/29/23 02:05 60 20 117/81 08/29/23 02:00 60 24 117/79 08/29/23 01:56 08/29/23 01:52 08/29/23 01:50 60 25 H 114/76 08/29/23 01:41 89 20 139/95 08/29/23 01:39 102 H 08/29/23 01:38 109 H 22 89/65 L 08/29/23 01:37 36.5 C 157 H 22 49/38 L Pulse Ox Pulse Ox O2 Del Method O2 Del Method O2 Flow Rate O2 Flow Rate 08/29/23 04:52 98 Nasal Cannula 5 08/29/23 04:43 Nasal Cannula 4 08/29/23 04:42 97 Nasal Cannula 6 08/29/23 03:56 97 Nasal Cannula 4 08/29/23 03:30 100 08/29/23 03:28 100 Nasal Cannula 4 08/29/23 03:01 100 Nasal Cannula 4 08/29/23 03:00 100 Nasal Cannula 4 08/29/23 02:46 100 Nasal Cannula 4 08/29/23 02:45 100 Nasal Cannula 4 08/29/23 02:35 98 Nasal Cannula 4 08/29/23 02:30 100 Nasal Cannula 4 08/29/23 02:25 96 Nasal Cannula 4 08/29/23 02:20 95 Nasal Cannula 4 08/29/23 02:17 100 Nasal Cannula 6 08/29/23 02:17 100 Nasal Cannula 4 08/29/23 02:10 100 Nasal Cannula 6 08/29/23 02:08 88 L Nasal Cannula 4 08/29/23 02:05 88 L Nasal Cannula 4 08/29/23 02:00 95 Nasal Cannula 4 08/29/23 01:56 97 Nasal Cannula 4 08/29/23 01:52 95 Nasal Cannula 6 08/29/23 01:50 98 Nasal Cannula 4 08/29/23 01:41 94 Nasal Cannula 6 08/29/23 01:39 08/29/23 01:38 Nasal Cannula 6 08/29/23 01:37 95 Nasal Cannula 6 [place] [address] IN/OBS CONSULT LVL 4,60M Patient Type New Diagnoses Ventricular tachycardia I47.20 Shortness of breath R06.02 Hypoxia R09.02 Implantable cardioverter-defibrillator discharge Z45.02 Lumbar radiculopathy, right M54.16 Essential hypertension I10 Hypertension type: essential hypertension Hyperlipidemia, unspecified hyperlipidemia type E78.5 Hyperlipidemia type: unspecified Coronary artery disease involving [place] coronary artery of [place] heart without angina pectoris I25.10 Associated angina: without angina Coronary Disease-Associated Artery/Lesion type: [place] artery [place] vs. transplanted heart: [place] heart Acute on chronic systolic congestive heart failure, NYHA class 3 I50.23 Congestive heart failure chronicity: acute on chronic Congestive heart failure type: systolic Chronic kidney disease, stage 4 (severe) N18.4 Diabetes mellitus type 2 in obese E11.69; E66.9 AF (paroxysmal atrial fibrillation) I48.0 COPD (chronic obstructive pulmonary disease) J44.9 Time Spent (min) 52 (6) Hypertension Hypertension type: essential hypertension Qualified Code(s): I10 - Essential (primary) hypertension (7) Hyperlipidemia Hyperlipidemia type: unspecified Qualified Code(s): E78.5 - Hyperlipidemia, unspecified (8) Coronary artery disease Associated angina: without angina Coronary Disease-Associated Artery/Lesion type: [place] artery [place] vs. transplanted heart: [place] heart Qualified Code(s): I25.10 - Atherosclerotic heart disease of [place] coronary artery without angina pectoris (9) CHF (congestive heart failure), NYHA class III Congestive heart failure chronicity: acute on chronic Congestive heart failure type: systolic Qualified Code(s): I50.23 - Acute on chronic systolic (congestive) heart failure
[2023-08-29 06:35] LABS: Appearance Urine Cloudy (Clear); Bacteria Urine Automated 2+ (None Seen); Bilirubin Urine Negative (Negative); Blood Urine Trace (Negative); Color Urine Yellow; Glucose Urine UA Negative (Negative); Ketones Urine Negative (Negative); Leukocyte Esterase Urine Trace (Negative); Nitrite Urine Negative (Negative); Protein Urine 2+ (Negative); Urobilinogen Urine Negative (Negative); WBC Urine Automated 0-5 /hpf (0-5)
[2023-08-29] MEDS ORDERED: ICU Protocol for HYPERglycemia SCH (07:30)
[2023-08-29] MEDS: AMIODARONE / D5W 360 MG/200 ML BAG IV SCH (08:00)
--- NOTE | 2023-08-29 08:03 | XRay Report ---
SINGLE VIEW CHEST CLINICAL HISTORY: Dysrhythmia. FINDINGS: An AP, portable, upright chest radiograph is compared to study dated 07/29/2022 and correlat ed with chest CT dated 08/03/2019. The patient is status post midline sternotomy. A 3-lead cardiac AIC D is unchanged in position. The heart is enlarged. The pulmonary vasculature is noncongested. Chronic cortical thickening is similar to previous. There is bibasilar scarring/atelectasis. The lungs and p leural spaces are otherwise clear. No pneumothorax is seen. The skeletal structures are osteopenic. T he bony thorax is grossly intact. IMPRESSION: 1. Cardiomegaly and AICD without radiographic evidence of congestive failure. 2. No airspace consolidation or large pleural effusion is identified. ACT 112: Negative or not required by law. Electronically signed by: Johan Martinez M.D. 08/29/2023 8:00 AM
[2023-08-29] MEDS: HYDROCODONE/ACETAMOPHEN 5/325MG TAB PO PRN (08:19)
[2023-08-29] MEDS: FUROSEMIDE 40 MG TAB PO SCH (08:19)
[2023-08-29] MEDS: CHOLECALCIFEROL 25 MCG (1000 UNITS) TAB PO SCH (08:19)
[2023-08-29] MEDS: ESCITALOPRAM OXALATE 10 MG TAB PO SCH (08:19)
[2023-08-29] MEDS: APIXABAN 2.5 MG TAB PO SCH (08:20)
[2023-08-29] MEDS: VIBEGRON 75 MG TAB PO SCH (08:20)
[2023-08-29] MEDS: PANTOprazole 40 MG TAB PO SCH (08:20)
[2023-08-29] MEDS: METOPROLOL SUCC 50MG EXT REL TAB PO SCH (08:20)
--- NOTE | 2023-08-29 09:05 | XCELERA ---
[id number] \\[id number]
--- NOTE | 2023-08-29 10:15 | XRay Report ---
SINGLE VIEW CHEST CLINICAL HISTORY: Respiratory failure. FINDINGS: An AP, portable, upright chest radiograph is compared to study performed earlier the same d ay 08/29/[address] with chest CT dated 08/03/2019. The patient is status post midline sternot salty. A 3-lead cardiac AICD is unchanged in position. The heart is enlarged. The pulmonary vasculature is noncongested. Chronic cortical thickening is similar to previous. There is bibasilar scarring/ate lectasis. The lungs and pleural spaces are otherwise clear. No pneumothorax is seen. The skeletal str uctures are osteopenic. The bony thorax is grossly intact. IMPRESSION: 1. Cardiomegaly and AICD without radiographic evidence of congestive failure. 2. No airspace consolidation or large pleural effusion is identified. ACT 112: Negative or not required by law. Electronically signed by: Johan Martinez M.D. 08/29/2023 10:13 AM
--- NOTE | 2023-08-29 10:35 | Cardiology Consultation ---
Date of Consultation August 29, 2023 Assessment & Plan (1) Ventricular tachycardia: (2) Implantable cardioverter-defibrillator discharge: (3) Shortness of breath: (4) Cardiomyopathy: (5) Coronary artery disease: (6) AF (paroxysmal atrial fibrillation): (7) Aortic stenosis: Plan 1. Ventricular tachycardia: Patient did have appropriately treated ventricular tachycardia. Unclear precipitant. This is not appear to be related to ischemic heart disease or decompensated heart failure. Electrolytes are being replaced but no severe derangements. Most likely a consequence of her severe cardiomyopathy. Curiously, she had fairly frequent ventricular tachycardia couple of months ago which appears to have improved when her beta-shayne dose was increased in the outpatient setting recently. Now on amiodarone as well. Will continue amiodarone infusion over the course of the evening and switch to an oral regimen tomorrow. She will continue on a beta blockade. Based on reports of ventricular tachycardia around 160 beats per minute I did lower her detection and treatment rate to 147 beats per minute today. 2. Cardiomyopathy: Nonischemic and severe. Curiously, she appears to be well compensated. While she did report breathing difficulty, this is not appear to be related to pulmonary vascular congestion. Her medical regimen has not been optimal due to her renal insufficiency and concerns over worsening with addition of Entresto or spironolactone. Also a poor candidate for an SG LT 2 inhibitor based on her renal dysfunction (i.e. limited benefit) 3. Atrial fibrillation: Permanent. On appropriate anticoagulation with reduced dose apixaban. In the past was some question about in adequate rate control and a poor pacing percentage. She actually did undergo attempt at an AV node ablation. Currently good pacing percentage without elevated heart rates. 4. Aortic stenosis: She has a history of a bioprosthetic aortic valve replacement and aortic repair. It appears that she does have an element of aortic stenosis which I would characterize as severe. True evaluation is compromised by poor image quality and her poor LV systolic function. However, the dimensionless index would suggest that she has severe aortic stenosis. Unfortunately, she is a poor candidate for any intervention based on her degree of cardiomyopathy and renal dysfunction. Even a percutaneous valve replacement would necessitate angiography and contrast during the procedure. This puts her at significant risk of contrast nephropathy and possibly needing dialysis. 5. Shortness of breath: Her primary concern leading up to her admission with shortness of breath. She describes this as occurring both at rest and with activity. She does not appear to have pulmonary vascular congestion. She has been treated for asthma in the past. She does report feeling better on supplemental oxygen previously but this had been discontinued recently she has not qualify because she cannot perform a 6 minutes walk test. However, I am concerned that her symptoms are related to aortic stenosis and will make some inquiries regarding the appropriate evaluation and options for treatment. History of Present Illness Reason for Consultation: Ventricular tachycardia Requesting Physician: Hodan Attending Physician: Arturo Sharpe History of Present Illness The patient is a 77-year-old woman with a complex and extensive past cardiac history to include aortic repair, aortic valve replacement, coronary artery disease with single-vessel bypass, permanent atrial fibrillation, severe nonischemic cardiomyopathy and history of ventricular tachycardia who called an ambulance to her home when she became significantly dyspneic and weak. The patient states that for some time now she has noticed worsening shortness of breath this can occur at rest or with activity but is certainly more noticeable when she attempts to be active. She is very sedentary in general and limited by some orthopedic disease, but is able to ambulate around her residence routinely. Recently she can only ambulate a short distance without becoming severely short of breath. Last night she was so short of breath that she felt as if she would fall to the ground and required assistance. She has not reported associated chest pain or dizziness. She has not been aware of any palpitations. She was being transported by ambulance when she was reported to have lost consciousness. This resulted in therapy from her device on 3 occasions and rapid succession. Emergency room it seems that she was also being evaluated when she developed a wide complex tachycardia that terminated spontaneously. She recalls being shocked in the ambulance. She can recall being shocked by her device quite remotely. She denies any recent loss of consciousness at home. She has not noticed any worsening lower extremity edema. She has been compliant with her diet and medical therapy. Allergies Allergy/AdvReac Type Severity Reaction Status Date / Time aspirin Allergy Intermediate HIVES Verified 08/27/23 10:21 Iodinated Contrast Media Allergy Intermediate HIVES - Verified 08/27/23 10:21 MRI DYE levofloxacin Allergy Intermediate HIVES, Verified 08/27/23 10:21 VEIN IRRITATION W/IV LEVAQUIN erythromycin base Allergy Unknown UNKNOWN Verified 08/27/23 10:21 Home Medications Medication Instructions Recorded Confirmed Type lancing device #1 ea 07/30/19 08/27/23 Rx cholecalciferol (vitamin D3) 25 25 mcg PO QAM 08/13/20 08/29/23 History mcg (1,000 unit) tablet (Vitamin D3) lancets 30 gauge (Easy Touch #200 ea 09/11/20 08/27/23 Rx Lancets) blood-glucose meter (Accu-Chek #1 ea 11/28/20 08/27/23 Rx Guide Glucose Meter) lancets (Accu-Chek Fastclix Lancet #102 ea 11/28/20 08/27/23 Rx Drum) omeprazole 20 mg capsule,delayed 20 mg PO QAM 03/05/21 08/29/23 History release escitalopram oxalate 10 mg tablet 10 mg PO QAM #90 tabs 09/04/22 08/29/23 Rx walker with foldable sides and a #1 ea 10/01/22 08/27/23 Rx tray apixaban 2.5 mg tablet (Eliquis) 2.5 mg PO BID #180 tabs 10/28/22 08/29/23 Rx furosemide 40 mg tablet (Lasix) 40 mg PO QAM #90 tabs 10/28/22 08/29/23 Rx blood sugar diagnostic (Accu-Chek #100 ea 01/21/23 08/27/23 Rx Guide test strips) pen needle, diabetic 31 gauge x #100 ea 01/21/23 08/27/23 Rx 3/16" (BD Ultra-Fine Mini Pen Needle) flash glucose scanning reader #1 ea 04/14/23 08/27/23 Rx (FreeStyle Efren 2 [place]) flash glucose sensor (FreeStyle #1 ea 04/14/23 08/27/23 Rx Efren 2 Sensor kit) atorvastatin 40 mg tablet 40 mg PO .@2100 06/02/23 08/29/23 History mirabegron 50 mg tablet,extended 50 mg PO DAILY #90 tabs 08/04/23 08/29/23 Rx release 24 hr (Myrbetriq) metoprolol succinate 50 mg 50 mg PO DAILY #90 tabs 08/11/23 08/29/23 Rx tablet,extended release 24 hr hydrocodone 5 mg-acetaminophen 325 2 tab PO Q6H PRN pain #20 tabs 08/27/23 08/29/23 Rx mg tablet insulin glargine 100 unit/mL (3 10 unit (0.1 mL) subcut HS #15 mL 08/27/23 08/29/23 Rx mL) subcutaneous pen (Lantus Solostar U-100 Insulin) prednisone 10 mg tablet See Rx Instructions PO DAILY #30 08/27/23 08/29/23 Rx tabs albuterol sulfate 90 mcg/actuation 2 puff inhalation QID PRN 08/28/23 08/29/23 Rx aerosol inhaler shortness of breath or wheezing #8.5 grams albuterol sulfate 2.5 mg/3 mL 2.5 mg continuous nebulization QID 08/29/23 08/29/23 History (0.083 %) solution for nebulization PRN Shortness Of Breath Or Wheezing Patient History Medical History COVID-19 On anticoagulant therapy Morbid obesity with BMI of 40.0-44.9, adult Presence of combination internal cardiac defibrillator (ICD) and pacemaker Cardiomyopathy History of ventricular tachycardia Sleep apnea On home oxygen therapy Poor historian Osteoarthritis History of kidney stones CKD (chronic kidney disease) HLD (hyperlipidemia) HTN (hypertension) GERD (gastroesophageal reflux disease) Depression DM type 2 (diabetes mellitus, type 2) CHF (congestive heart failure) Colitis COPD (chronic obstructive pulmonary disease) Ileitis Endometrial cancer, grade I Esophageal dysmotility AF (paroxysmal atrial fibrillation) CVA (cerebral vascular accident) (11/23/10) Urge incontinence of urine 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) Surgical History History of cardiac radiofrequency ablation History of esophagogastroduodenoscopy (EGD) History of colonoscopy History of carpal tunnel release of both wrists History of cystoscopy History of left cataract surgery History of History of cholecystectomy History of appendectomy Hx of CABG History of aortic aneurysm repair H/O aortic valve replacement Family History Mother Diabetes Myocardial infarction Sister Diabetes Son Hypertension Denies family history of Ovarian cancer Prostate cancer Breast cancer Lung cancer Colorectal cancer Cancer Social History Smoking Status: Never smoker Second Hand Exposure: No; Do You Dip or Chew Tobacco: No; Hx Alcohol Use: No Hx Substance Use: No Preferred Language: Macedonian Communication Ability: Effective Visual Impairment: Limited Hearing Ability: Normal Concrete Floater Required: No Beliefs That Will Affect Care: None marital status: / Current Living Situation: Family Current Living Situation Comment: Patient lives with grandchildren current occupational status: disabled How many Children do You have: 3 Feels Safe at Home: Yes Childhood Exposure to Second-Hand Smoke: No Diet: low salt and regular caffeine: Yes (soda) during the past year weight has: remained stable Dental Care, Regularly: No Physical Activity Frequency: Does not Exercise Seatbelt Use: sometimes Sunscreen Use: No Assistive Devices: Glasses, Walker and Wheelchair Review of Systems Review of Systems: Per HPI. Physical Exam Physical Exam: She is alert and oriented x3. Mood affect appear normal. She answered all questions appropriately. HEENT: Sclerae are anicteric. Pupils are equal and reactive to light and accommodation. Extraocular movements were intact. Neuro: Cranial nerves intact Lungs: Lungs are clear to auscultation bilaterally. There are no rales wheezes or rhonchi. She has normal respiratory effort without use of accessory muscles. There is normal pulmonary excursion. Cardiac: The rhythm was regular. S1 and S2 were normal. Soft crescendo systolic murmur. The PMI was not markedly displaced on palpation. Abdomen: The abdomen was soft and nontender. Extremities: Patient has bilateral radial pulses that are equal in intensity. There is no evidence cyanosis or clubbing. There was no evidence of significant peripheral edema bilaterally. Skin: There are no rashes noted on examination today. Results & Data Vital Signs (Past 12 Hours) Vital Signs Temp Pulse Pulse Resp BP BP BP 08/29/23 08:39 08/29/23 08:00 36.5 C 08/29/23 08:00 61 08/29/23 07:30 60 22 121/71 08/29/23 07:00 64 10 L 08/29/23 06:30 60 18 08/29/23 06:01 61 20 08/29/23 06:01 90/69 L 08/29/23 05:34 114/76 08/29/23 05:34 67 17 08/29/23 05:00 08/29/23 05:00 61 18 114/76 08/29/23 04:52 36.7 C 66 112/75 08/29/23 04:43 08/29/23 04:42 62 08/29/23 04:42 08/29/23 03:56 60 18 113/79 08/29/23 03:30 60 22 08/29/23 03:28 60 19 138/65 08/29/23 03:01 60 18 124/76 08/29/23 03:00 60 20 124/76 08/29/23 02:46 60 127/81 08/29/23 02:45 60 18 127/81 08/29/23 02:35 60 18 118/81 08/29/23 02:30 60 22 121/85 08/29/23 02:25 60 24 130/81 08/29/23 02:20 60 16 111/88 08/29/23 02:17 08/29/23 02:17 60 18 114/70 08/29/23 02:10 60 22 110/81 08/29/23 02:08 08/29/23 02:05 60 20 117/81 08/29/23 02:00 60 24 117/79 08/29/23 01:56 08/29/23 01:52 08/29/23 01:50 60 25 H 114/76 08/29/23 01:41 89 20 139/95 08/29/23 01:39 102 H 08/29/23 01:38 109 H 22 89/65 L 08/29/23 01:37 36.5 C 157 H 22 49/38 L Pulse Ox Pulse Ox O2 Del Method O2 Del Method O2 Flow Rate O2 Flow Rate 08/29/23 08:39 Nasal Cannula 4 08/29/23 08:00 08/29/23 08:00 08/29/23 07:30 94 08/29/23 07:00 100 08/29/23 06:30 100 08/29/23 06:01 100 08/29/23 06:01 08/29/23 05:34 08/29/23 05:34 100 08/29/23 05:00 Nasal Cannula 4 08/29/23 05:00 99 08/29/23 04:52 98 Nasal Cannula 5 08/29/23 04:43 Nasal Cannula 4 08/29/23 04:42 08/29/23 04:42 97 Nasal Cannula 6 08/29/23 03:56 97 Nasal Cannula 4 08/29/23 03:30 100 08/29/23 03:28 100 Nasal Cannula 4 08/29/23 03:01 100 Nasal Cannula 4 08/29/23 03:00 100 Nasal Cannula 4 08/29/23 02:46 100 Nasal Cannula 4 08/29/23 02:45 100 Nasal Cannula 4 08/29/23 02:35 98 Nasal Cannula 4 08/29/23 02:30 100 Nasal Cannula 4 08/29/23 02:25 96 Nasal Cannula 4 08/29/23 02:20 95 Nasal Cannula 4 08/29/23 02:17 100 Nasal Cannula 6 08/29/23 02:17 100 Nasal Cannula 4 08/29/23 02:10 100 Nasal Cannula 6 08/29/23 02:08 88 L Nasal Cannula 4 08/29/23 02:05 88 L Nasal Cannula 4 08/29/23 02:00 95 Nasal Cannula 4 08/29/23 01:56 97 Nasal Cannula 4 08/29/23 01:52 95 Nasal Cannula 6 08/29/23 01:50 98 Nasal Cannula 4 08/29/23 01:41 94 Nasal Cannula 6 08/29/23 01:39 08/29/23 01:38 Nasal Cannula 6 08/29/23 01:37 95 Nasal Cannula 6 Laboratory Results Abnormal Lab Results 08/29/23 08/29/23 08/29/23 01:57 01:58 02:07 WBC 8.32 RBC 4.65 Hgb 13.6 POC Hgb 14.3 Hct 42.3 POC Hct 42 MCV 91.0 MCH 29.2 MCHC 32.2 RDW Std Deviation 49.1 H RDW Coeff of Chriss 15.2 H Plt Count 167 MPV 10.4 Immature Gran % (Auto) 0.2 Neut % (Auto) 77.7 Lymph % (Auto) 12.7 [place] % (Auto) 7.3 Eos % (Auto) 1.7 Baso % (Auto) 0.4 Neut # (Auto) 6.46 Lymph # (Auto) 1.06 L [place] # (Auto) 0.61 H Eos # (Auto) 0.14 Baso # (Auto) 0.03 Immature Gran # (Auto) 0.02 PT Cancelled INR Cancelled VBG pH 7.26 L VBG pCO2 53 H VBG pO2 36 VBG HCO3 24 VBG O2 Saturation < 60.0 VBG Base Excess -3.9 POC Sodium 141 Sodium 139 POC Potassium 4.4 Potassium 4.1 POC Chloride 106 Chloride 107 Carbon Dioxide 23 POC Total CO2 27 Anion Gap 9 POC Anion Gap 14.0 L POC BUN 48 H BUN 41 H Creatinine 2.33 H POC Creatinine 2.4 H Est Cr Clr Drug Dosing 16.4 Est GFR ( Amer) 22.3 Est GFR (Non-Af Amer) 19.3 BUN/Creatinine Ratio 17.6 Glucose 206 H POC Glucose POC Glucose (other) 196 H Calcium 9.6 POC Ioniz Calcium Yelena 1.21 Magnesium 2.0 Total Bilirubin 0.9 AST 25 ALT 33 Alkaline Phosphatase 116 H Troponin I High Sens 54.1 H* B-Natriuretic Peptide 690 H Total Protein 6.6 Albumin 4.0 Globulin 2.6 Albumin/Globulin Ratio 1.5 Lipase 53 Urine Color Urine Appearance Urine pH Ur Specific [place] Urine Protein Urine Glucose (UA) Urine Ketones Urine Blood Urine Nitrite Urine Bilirubin Urine Urobilinogen Ur Leukocyte Esterase Urine WBC (Auto) Urine RBC (Auto) U Hyaline Cast (Auto) U Epithel Cells (Auto) Urine Bacteria (Auto) Nasal Screen MRSA (PCR) SARS-CoV-2 (PCR) NEGATIVE Influenza Type A (PCR) Negative Influenza Type B (PCR) Negative RSV (RT-PCR) Negative 08/29/23 08/29/23 08/29/23 03:41 04:40 04:44 WBC RBC Hgb POC Hgb Hct POC Hct MCV MCH MCHC RDW Std Deviation RDW Coeff of Chriss Plt Count MPV Immature Gran % (Auto) Neut % (Auto) Lymph % (Auto) [place] % (Auto) Eos % (Auto) Baso % (Auto) Neut # (Auto) Lymph # (Auto) [place] # (Auto) Eos # (Auto) Baso # (Auto) Immature Gran # (Auto) PT 12.8 H INR 1.2 H VBG pH VBG pCO2 VBG pO2 VBG HCO3 VBG O2 Saturation VBG Base Excess POC Sodium Sodium POC Potassium Potassium POC Chloride Chloride Carbon Dioxide POC Total CO2 Anion Gap POC Anion Gap POC BUN BUN Creatinine POC Creatinine Est Cr Clr Drug Dosing Est GFR ( Amer) Est GFR (Non-Af Amer) BUN/Creatinine Ratio Glucose POC Glucose 287 H POC Glucose (other) Calcium POC Ioniz Calcium Yelena Magnesium Total Bilirubin AST ALT Alkaline Phosphatase Troponin I High Sens 47.4 H B-Natriuretic Peptide Total Protein Albumin Globulin Albumin/Globulin Ratio Lipase Urine Color Urine Appearance Urine pH Ur Specific [place] Urine Protein Urine Glucose (UA) Urine Ketones Urine Blood Urine Nitrite Urine Bilirubin Urine Urobilinogen Ur Leukocyte Esterase Urine WBC (Auto) Urine RBC (Auto) U Hyaline Cast (Auto) U Epithel Cells (Auto) Urine Bacteria (Auto) Nasal Screen MRSA (PCR) SARS-CoV-2 (PCR) Influenza Type A (PCR) Influenza Type B (PCR) RSV (RT-PCR) 08/29/23 08/29/23 07:21 Unknown WBC RBC Hgb POC Hgb Hct POC Hct MCV MCH MCHC RDW Std Deviation RDW Coeff of Chriss Plt Count MPV Immature Gran % (Auto) Neut % (Auto) Lymph % (Auto) [place] % (Auto) Eos % (Auto) Baso % (Auto) Neut # (Auto) Lymph # (Auto) [place] # (Auto) Eos # (Auto) Baso # (Auto) Immature Gran # (Auto) PT INR VBG pH VBG pCO2 VBG pO2 VBG HCO3 VBG O2 Saturation VBG Base Excess POC Sodium Sodium POC Potassium Potassium POC Chloride Chloride Carbon Dioxide POC Total CO2 Anion Gap POC Anion Gap POC BUN BUN Creatinine POC Creatinine Est Cr Clr Drug Dosing Est GFR ( Amer) Est GFR (Non-Af Amer) BUN/Creatinine Ratio Glucose POC Glucose 210 H POC Glucose (other) Calcium POC Ioniz Calcium Yelena Magnesium Total Bilirubin AST ALT Alkaline Phosphatase Troponin I High Sens B-Natriuretic Peptide Total Protein Albumin Globulin Albumin/Globulin Ratio Lipase Urine Color Yellow Urine Appearance Cloudy A Urine pH 5.0 Ur Specific [place] 1.020 Urine Protein 2+ H Urine Glucose (UA) Negative Urine Ketones Negative Urine Blood Trace H Urine Nitrite Negative Urine Bilirubin Negative Urine Urobilinogen Negative Ur Leukocyte Esterase Trace H Urine WBC (Auto) 0-5 Urine RBC (Auto) 3-5 H U Hyaline Cast (Auto) 3-5 H U Epithel Cells (Auto) 6-10 H Urine Bacteria (Auto) 2+ H Nasal Screen MRSA (PCR) Negative SARS-CoV-2 (PCR) Influenza Type A (PCR) Influenza Type B (PCR) RSV (RT-PCR) Diagnostic Findings Chest x-ray obtained the time of admission did not reveal any evidence of congestive heart failure pulmonary vascular congestion. No acute cardiopulmonary process. 08/29/2023: Severely reduced LV systolic function with ejection fraction of 15- 20%. Severe global hypokinesis with apical akinesis. Severe dilation of left atrium. Bioprosthetic aortic valve with elevated gradient suggesting severe aortic stenosis. I performed a complete device interrogation of her biventricular ICD. She did have 3 appropriate therapies last evening. She had fairly frequent episodes of treated ventricular tachycardia well over a month ago. No cardioversions, all ATP. None in the past few weeks. Good pacing percentage. Good battery longevity. ECG Additional Comments: EKG obtained the time admission revealed atrial fibrillation and a paced ventricular rhythm with occasional PVCs. PG Care Time/CCT Total # of Minutes Spent Total Time Spent with Patient: Total time spent is greater than 50% in coordination of care (as documented) at patient's floor/unit and/or counseling patient: Coding Level of Care Code 14498 INT INP/OBS CARE 3/75MIN Diagnoses Ventricular tachycardia I47.20 Implantable cardioverter-defibrillator discharge Z45.02 Shortness of breath R06.02 Cardiomyopathy I42.9 Coronary artery disease involving [place] coronary artery of [place] heart without angina pectoris I25.10 Associated angina: without angina Coronary Disease-Associated Artery/Lesion type: [place] artery [place] vs. transplanted heart: [place] heart AF (paroxysmal atrial fibrillation) I48.0 Aortic stenosis I35.0 CPT Codes Implantable Defib Multi lead programming - [id number] ([id number]) 26 - PROFESSIONAL COMPONENT (5) Coronary artery disease Associated angina: without angina Coronary Disease-Associated Artery/Lesion type: [place] artery [place] vs. transplanted heart: [place] heart Qualified Code(s): I25.10 - Atherosclerotic heart disease of [place] coronary artery without angina pectoris
[2023-08-29] MEDS: INSULIN ASPART PER UNIT CHARGE SC SCH (10:54)
[2023-08-29] MEDS: CARBOHYDRATES FOR HYPOGLYCEMIA PO PRN (20:31)
[2023-08-29] MEDS: ATORVASTATIN 40 MG TAB PO SCH (20:32)
[2023-08-29] MEDS: LANTUS PER UNIT CHARGE SQ SCH (21:06)
[2023-08-30 05:28] LABS: Basophils # (auto) 0.02 K/uL (0.00-0.20); Basophils % (auto) 0.3 %; Eosinophils # (auto) 0.11 K/uL (0.00-0.50); Eosinophils % (auto) 1.7 %; Hemoglobin 12.8 g/dl (12.0-16.0); Immature Granulocytes # (auto) 0.03 K/uL (0.01-0.20); Immature Granulocytes % (auto) 0.5 %; Lymphocytes # (auto) 1.24 K/uL (1.20-3.40); Lymphocytes % (auto) 18.9 %; Mean Corpuscular Hemoglobin 29.4 pg (25.0-34.0); Mean Corpuscular Hgb Conc 32.8 g/dL (32.0-36.0); Mean Corpuscular Volume 89.7 fL (80.0-100.0); Mean Platelet Volume 10.3 fL (9.4-12.4); Monocytes # (auto) 0.64 K/uL (0.11-0.59); Monocytes % (auto) 9.8 %; Neutrophils # (auto) 4.51 K/uL (1.40-6.50); Neutrophils % (auto) 68.8 %; Platelet Count 133 K/uL (130-400); RDW Standard Deviation 48.4 fL (36.4-46.3); Red Blood Count 4.35 M/uL (4.20-5.40); White Blood Count 6.55 K/ul (4.8-10.8)
[2023-08-30 05:37] LABS: Albumin Level 3.7 gm/dl (3.4-5.0); BUN Creatinine Ratio 18.1 (10-20); Calcium 9.5 mg/dl (8.6-10.3); Creatinine Clr Calc Pharmacy 13.9 ml/min; Est GFR (African American) 20.1 ml/min; Est GFR (Non-African American) 17.3 ml/min; Magnesium 1.9 mg/dl (1.7-2.4); Phosphorus 3.6 mg/dl (2.5-4.9); Potassium 4.7 mmol/L (3.5-5.1)
[2023-08-30 05:47] LABS: INR 1.1 (0.9-1.1); Partial Thromboplastin Ratio 1.1; Partial Thromboplastin Time 30 Seconds (21-31); Prothrombin Time 12.4 Seconds (9.0-12.0)
--- NOTE | 2023-08-30 06:00 | Electrocardiogram Report ---
Test Reason : Blood Pressure : / mmHG Vent. Rate : 066 BPM Atrial Rate : 220 BPM P-R Int : 000 ms QRS Dur : 170 ms QT Int : 488 ms P-R-T Axes : 000 207 016 degrees QTc Int : 511 ms Ventricular-paced rhythm with PVCs Abnormal ECG When compared with ECG of 29-AUG-2023 01:35, (unconfirmed) Electronic ventricular pacemaker has replaced Wide QRS tachycardia Vent. rate has decreased BY 92 BPM Confirmed by Pedro Li ([id number]) on 08/30/2023 6:00:28 AM Referred By: REFERRED SELF Confirmed By:Jus Li
--- NOTE | 2023-08-30 06:17 | Electrocardiogram Report ---
Test Reason : Blood Pressure : / mmHG Vent. Rate : 060 BPM Atrial Rate : 319 BPM P-R Int : 000 ms QRS Dur : 176 ms QT Int : 528 ms P-R-T Axes : 000 191 014 degrees QTc Int : 528 ms Ventricular-paced rhythm Biventricular pacemaker detected Abnormal ECG When compared with ECG of 29-AUG-2023 01:47, Vent. rate has decreased BY 6 BPM Confirmed by Pedro Li ([id number] on 08/30/2023 6:17:19 AM Referred By: REFERRED SELF Confirmed By:Jus Li
[2023-08-30] MEDS: MAGNESIUM SULFATE / D5W 1 GM/100 ML BAG IV ONE (08:15)
--- NOTE | 2023-08-30 10:13 | Critical Care Progress Note ---
Date of Service August 30, 2023 Assessment & Plan (1) Ventricular tachycardia: Plan: Impression: 77-year-old female with extensive cardiac history presents to the ICU following 3 episodes of V. tach and 2 defibrillations with AICD, currently on amiodarone drip. Neuro - [facility] ICU: Negative Radiculopathyprednisone on hold. Continue [place] as needed Cardiac - Ventricular tachycardiastatus post AICD defibrillation x 2, with additional event with spontaneous conversion. Interrogation of AICD with confirmed V. tach. -Continue amiodarone drip and await cardiology recommendations or transition to p.o. -Maximize electrolytes -Continue MTP -Continuous monitoring on telemetry. Pacer pads to remain on patient. Monitoring in ICU Systolic heart failurehistory of nonischemic cardiomyopathy and AICD. Additional cardiac history of aortic dissection s/p aortic arch repair, bioprosthetic AVR, and CABG x 1 -Appears stable on exam. Currently euvolemic -Continue diuresis -Echo reviewed this hospital stay from 08/29/2023 revealing a technically limited limited study. Severe global hypokinesis with akinesis of the entire apex. Bioprosthetic aortic valve. Severe valvular aortic stenosis. Right ventricular systolic function is elevated 30 to 40 mmHg. Atrial fibrillationcurrently in paced rhythm. Continue MTP, will Eliquis. Continuous monitor on telemetry Respiratory - Hypoxialikely pulmonary edema and following V. tach/cardiac event with u nderlying cardiomyopathy. Currently maintaining oxygen saturation on 2 L nasal cannula. -Continue Lasix for now -Wean as tolerated -Continuous monitoring pulse ox COPDstable, continue home nebs GI - Heart healthy, carb consistent diet Continue PPI RENAL/LYTES - CKD stage IIIcreatinine 2.54 today. -Hold on Lasix dosing today. -Will consult nephrology. - Strict I's and O's ENDO - DM type IIhyperglycemia likely exacerbated by steroids and dextrose infusion with amiodarone drip. -Continue Lantus/sliding scale for now. ICU hyperglycemic protocol HEME - H&H stable, monitor routine CBC ID - No indication for infectious process at this LINES/IV ACCESS - Peripheral IVs DVT PROPHYLAXIS - SCDs, Eliquis CODE STATUS: Full code, as confirmed by patient Patient can downgrade out of the ICU today. (2) Shortness of breath: (3) Hypoxia: (4) Implantable cardioverter-defibrillator discharge: (5) Lumbar radiculopathy, right: (6) Hypertension: (7) Hyperlipidemia: (8) Coronary artery disease: (9) CHF (congestive heart failure), NYHA class III: (10) Chronic kidney disease, stage 4 (severe): (11) Diabetes mellitus type 2 in obese: (12) AF (paroxysmal atrial fibrillation): (13) COPD (chronic obstructive pulmonary disease): Admission and Anticipated Discharge Date Admission Date: August 29, 2023 Subjective Patient seen and examined this morning. Sitting up in a chair. Denies any significant complaints. Review of Systems Review of Systems: All systems reviewed & are unremarkable except as noted in HPI & below Physical Exam Constitutional: cooperative and comfortable; no acute distress Eyes: PERRL, conjunctivae normal, anicteric sclerae ENMT: external ear and nose normal, oropharynx normal Neck: trachea midline, no thyromegaly Respiratory: normal respiratory effort, lungs clear to auscultation Cardiovascular: Rate/Rhythm: regular rate and regular rhythm Heart Sounds: + murmur Extremities: no edema Gastrointestinal (Abdomen): normal bowel sounds, soft, nontender, no hepatosplenomegaly Musculoskeletal: no cyanosis or clubbing, extremities motor strength 5/5 Skin: no rashes, warm and dry Neurologic: PERRL, EOMI, accommodation nl, no face palsy, no dysarthria Psychiatric: A+Ox3, euthymic affect Results & Data Results & Data Vital Signs (Past 12 Hours) Vital Signs Temp Pulse Resp BP Pulse Ox Pulse Ox O2 Del Method 08/30/23 06:00 156/87 H 08/30/23 06:00 60 17 100 08/30/23 05:00 60 100 08/30/23 05:00 150/81 H 08/30/23 04:42 100 Nasal Cannula 08/30/23 04:00 126/77 08/30/23 04:00 60 14 100 08/30/23 03:36 36.7 C 08/30/23 03:00 129/83 08/30/23 03:00 60 16 91 08/30/23 02:00 138/90 08/30/23 02:00 60 9 L 99 08/30/23 01:00 60 18 98 08/30/23 01:00 128/83 08/30/23 00:00 60 08/30/23 00:00 36.6 C 08/30/23 00:00 128/79 08/30/23 00:00 60 99 08/29/23 23:00 60 18 97 08/29/23 23:00 133/87 O2 Flow Rate 08/30/23 06:00 08/30/23 06:00 08/30/23 05:00 08/30/23 05:00 08/30/23 04:42 2 08/30/23 04:00 08/30/23 04:00 08/30/23 03:36 08/30/23 03:00 08/30/23 03:00 08/30/23 02:00 08/30/23 02:00 08/30/23 01:00 08/30/23 01:00 08/30/23 00:00 08/30/23 00:00 08/30/23 00:00 08/30/23 00:00 08/29/23 23:00 08/29/23 23:00 Coding Level of Care Code 79905 SUB INP/OBS CARE 2/35MIN Diagnoses Ventricular tachycardia I47.20 Shortness of breath R06.02 Hypoxia R09.02 Implantable cardioverter-defibrillator discharge Z45.02 Lumbar radiculopathy, right M54.16 Essential hypertension I10 Hypertension type: essential hypertension Hyperlipidemia, unspecified hyperlipidemia type E78.5 Hyperlipidemia type: unspecified Coronary artery disease involving [place] coronary artery of [place] heart without angina pectoris I25.10 Coronary Disease-Associated Artery/Lesion type: [place] artery [place] vs. transplanted heart: [place] heart Associated angina: without angina Acute on chronic systolic congestive heart failure, NYHA class 3 I50.23 Congestive heart failure type: systolic Congestive heart failure chronicity: acute on chronic Chronic kidney disease, stage 4 (severe) N18.4 Diabetes mellitus type 2 in obese E11.69; E66.9 AF (paroxysmal atrial fibrillation) I48.0 COPD (chronic obstructive pulmonary disease) J44.9 (6) Hypertension Hypertension type: essential hypertension Qualified Code(s): I10 - Essential (primary) hypertension (7) Hyperlipidemia Hyperlipidemia type: unspecified Qualified Code(s): E78.5 - Hyperlipidemia, unspecified (8) Coronary artery disease Coronary Disease-Associated Artery/Lesion type: [place] artery [place] vs. transplanted heart: [place] heart Associated angina: without angina Qualified Code(s): I25.10 - Atherosclerotic heart disease of [place] coronary artery without angina pectoris (9) CHF (congestive heart failure), NYHA class III Congestive heart failure type: systolic Congestive heart failure chronicity: acute on chronic Qualified Code(s): I50.23 - Acute on chronic systolic (congestive) heart failure
--- NOTE | 2023-08-30 11:14 | Cardiology Progress Note ---
Date of Service August 30, 2023 Assessment & Plan (1) Ventricular tachycardia: (2) Elevated troponin: (3) Aortic stenosis: (4) Coronary artery disease: (5) Cardiomyopathy: Plan 1. Ventricular tachycardia: She has been having increasing difficulty with ventricular tachycardia and will need a medication to suppress it. Amiodarone is the best option and I am going to continue it. I am going to add oral amiodarone today but overlap by 24 hours, with discontinuation of the intravenous amiodarone tomorrow morning. There is no obvious cause for the increase in ventricular tachycardia currently, ischemia does not seem to be involved, she is not in worse congestive heart failure and her electrolytes are within normal limits. 2. Elevated troponin: Her troponin is slightly elevated but stable, this does not appear to be an acute ischemic event. 3. Aortic stenosis: Clinically stable 4. Coronary disease: Although she has coronary disease it does not seem to be a cause of her current VT progression. Ischemic evaluation should not be necessary. 5. Cardiomyopathy: She does have a severe cardiomyopathy but does not seem to have heart failure symptoms or signs currently. Admission and Anticipated Discharge Date Admission Date: August 29, 2023 Subjective Events of yesterday noted. In brief she is a 77-year-old woman with a history of aortic repair, aortic valve replacement, coronary disease with bypass surgery, permanent atrial fibrillation and severe nonischemic cardiomyopathy. She has an ICD in place and has had difficulty with ventricular tachycardia. She presented to the emergency room via EMS August 29, 2023 with shortness of breath, and route to the hospital she became unresponsive and developed ventricular tachycardia for which she was shocked by her defibrillator. She was started on amiodarone at that time and that has continued. It is felt that this is a primary arrhythmia (rather than being related to myocardial ischemia or congestive heart failure). She has been having increasing difficulty with ventricular tachycardia recently. She is feeling well today, she has no chest discomfort, no shortness of breath and has been walking around her room and to the bathroom. At the time my evaluation she is sitting at her bedside. Physical Exam Physical Exam: Constitutional: Alert, cooperative and in no distress. She is overweight. HEENT: Unremarkable Neck: No jugular venous distention, carotid pulses are normal and equal bilaterally without bruits. Pulmonary: Clear to auscultation bilaterally. Cardiac: Regular rhythm (paced during atrial fibrillation) with no murmur, gallop or rub. Abdomen: Soft, nontender with normal bowel sounds. Extremities: No edema. Neurologic: No focal findings. Skin: No rash, ecchymoses or petechiae. Her device site is well-healed. Results & Data Vital Signs (Past 12 Hours) Vital Signs Temp Pulse Resp BP Pulse Ox Pulse Ox O2 Del Method 08/30/23 10:00 126/85 08/30/23 10:00 61 19 100 Nasal Cannula 08/30/23 09:30 131/81 08/30/23 09:30 60 16 100 Nasal Cannula 08/30/23 09:01 125/78 08/30/23 09:01 68 12 100 Nasal Cannula 08/30/23 09:00 67 14 98 Nasal Cannula 08/30/23 08:00 142/88 H 08/30/23 08:00 62 24 08/30/23 07:30 123/79 08/30/23 07:30 15 100 Nasal Cannula 08/30/23 07:00 127/82 08/30/23 07:00 60 18 99 Nasal Cannula 08/30/23 06:30 132/70 08/30/23 06:00 156/87 H 08/30/23 06:00 60 17 100 08/30/23 05:00 60 100 08/30/23 05:00 150/81 H 08/30/23 04:42 100 08/30/23 04:00 126/77 08/30/23 04:00 60 14 100 08/30/23 03:36 36.7 C 08/30/23 03:00 129/83 08/30/23 03:00 60 16 91 08/30/23 02:00 138/90 08/30/23 02:00 60 9 L 99 08/30/23 01:00 60 18 98 08/30/23 01:00 128/83 08/30/23 00:00 60 08/30/23 00:00 36.6 C 08/30/23 00:00 128/79 08/30/23 00:00 60 99 O2 Del Method O2 Flow Rate O2 Flow Rate 08/30/23 10:00 08/30/23 10:00 2 08/30/23 09:30 08/30/23 09:30 2 08/30/23 09:01 08/30/23 09:01 2 08/30/23 09:00 2 08/30/23 08:00 08/30/23 08:00 08/30/23 07:30 08/30/23 07:30 2 08/30/23 07:00 08/30/23 07:00 2 08/30/23 06:30 08/30/23 06:00 08/30/23 06:00 08/30/23 05:00 08/30/23 05:00 08/30/23 04:42 Nasal Cannula 2 08/30/23 04:00 08/30/23 04:00 08/30/23 03:36 08/30/23 03:00 08/30/23 03:00 08/30/23 02:00 08/30/23 02:00 08/30/23 01:00 08/30/23 01:00 08/30/23 00:00 08/30/23 00:00 08/30/23 00:00 08/30/23 00:00 Laboratory Results Cardiac Enzymes 08/29/23 08/29/23 08/29/23 Range/Units 11:45 17:56 23:47 Troponin I High Sens 48.6 H 47.0 H 44.8 H (0-14) pg/ml Coagulation 08/30/23 Range/Units 04:53 PT 12.4 H (9.0-12.0) Seconds APTT 30 (21-31) Seconds CBC 08/30/23 Range/Units 04:53 WBC 6.55 (4.8-10.8) K/ul RBC 4.35 (4.20-5.40) M/uL Hgb 12.8 (12.0-16.0) g/dl Hct 39.0 (37.0-47.0) % Plt Count 133 (130-400) K/uL Neut # (Auto) 4.51 (1.40-6.50) K/uL Lymph # (Auto) 1.24 (1.20-3.40) K/uL [place] # (Auto) 0.64 H (0.11-0.59) K/uL Eos # (Auto) 0.11 (0.00-0.50) K/uL Baso # (Auto) 0.02 (0.00-0.20) K/uL Comprehensive Metabolic Panel 08/30/23 Range/Units 04:53 Sodium 138 (136-145) mmol/L Potassium 4.7 (3.5-5.1) mmol/L Chloride 105 (98-107) mmol/L Carbon Dioxide 26 (21-32) mmol/L BUN 46 H (6-23) mg/dl Creatinine 2.54 H (0.6-1.2) mg/dl Glucose 127 H (70-99(Fasting)) mg/dl Calcium 9.5 (8.6-10.3) mg/dl Albumin 3.7 (3.4-5.0) gm/dl Intake and Output 08/29/23 08/30/23 08/30/23 22:59 06:59 14:59 Intake Total 500 / 1700 0 / 1700 425 / 425 Output Total 75 / 600 400 / 600 75 / 75 Balance 425 / 1100 -400 / 1100 350 / 350 Intake: IV 200 / 1400 300 / 300 Amiodarone / D5w 360 mg In 200 200 / 200 200 / 200 ml @ 0.5 MG/MIN 16.667 mls/hr IV .Q12H [facility] Rx#:[id number] Magnesium Sulfate / D5w 1 gm In 100 / 100 100 ml @ 50 mls/hr IV ONE ONE Rx#:[id number] Oral 300 / 300 0 / 300 125 / 125 Output: Urine 75 / 600 400 / 600 75 / 75 Other: Weight 95.4 kg Weight Measurement Method Built in [facility] Diagnostic Findings Telemetry: Ventricular paced, underlying atrial fibrillation, no further ventricular tachycardia PG Care Time/CCT Total # of Minutes Spent Total Time Spent with Patient: Total time spent is greater than 50% in coordination of care (as documented) at patient's floor/unit and/or counseling patient: Coding Level of Care Code 61295 SUB INP/OBS CARE 3/50MIN Diagnoses Ventricular tachycardia I47.20 Elevated troponin R74.8 Aortic stenosis I35.0 Coronary artery disease involving [place] coronary artery of [place] heart without angina pectoris I25.10 Coronary Disease-Associated Artery/Lesion type: [place] artery [place] vs. transplanted heart: [place] heart Associated angina: without angina Cardiomyopathy I42.9 (4) Coronary artery disease Coronary Disease-Associated Artery/Lesion type: [place] artery [place] vs. transplanted heart: [place] heart Associated angina: without angina Qualified Code(s): I25.10 - Atherosclerotic heart disease of [place] coronary artery without angina pectoris
--- NOTE | 2023-08-30 12:00 | Nephrology Consultation ---
Date of Consultation August 30, 2023 Assessment & Plan (1) Acute kidney injury: * SUSSY/CKD likely related to impaired renal perfusion associated w/ recurrent ventricular tachycardia requiring defibrillation x2 * Patient is now in a paced rhythm on amiodarone gtt. Volume status and electrolyte balance are acceptable * Monitor PRP. Will order urine for urinalysis and microscopy * Consider renal US only if kidney function fails to improve w/ conservative measures (2) Chronic kidney disease, stage 4 (severe): * CKD stage G4/A2 (advanced impairment). Baseline Cr 2.2 w/ EGFR 21 cc/min. Urine sediment has been acellular. UPCR 0.2. Renal impairment is due to poor perfusion associated with idiopathic dilated CMP, microvascular disease and DKD (3) Hypertension: * BP is currently well controlled w/ Metoprolol therapy (4) Cardiomyopathy: * Amiodarone as per Cardiology * Await further input regarding aortic stenosis History of Present Illness Reason for Consultation: SUSSY/CKD Attending Physician: Arturo Sharpe History of Present Illness Ms. Quick is a 77 year old female who is seen at the request of Dr. Laurent for evaluation of SUSSY/CKD. Information for the HPI is obtained from direct patient interview and review of the EMR. HPI is summarized as follows: Ms. Quick has CKD stage G4/A2 (advanced impairment). Baseline Cr 2.2 w/ EGFR 21 cc/min. Urine sediment has been acellular. UPCR 0.2. Renal impairment is due to poor perfusion associated with idiopathic dilated CMP, microvascular disease and DKD. Ms. Quick was admitted to [facility] 08/29/23 due to recurrent V-tach. Her pacemaker/defibrillator discharged twice. Patient is now on IV amiodarone and telemetry reveals a paced rhythm. Creatinine has risen slightly to 2.5. Patient reports brisk UO. She currently denies angina, dyspnea, flank pain, gross hematuria or uremic symptoms. Echocardiogram this hospitalization reveals LVEF 15-20%, severe global hypokinesis of LV with akinesis of entire apex, bioprosthetic aortic valve w/ sever stenosis. PMH: CKD stage G4, AODM, HTN, nonischemic CMP, DIAMOND, COPD Allergies Allergy/AdvReac Type Severity Reaction Status Date / Time aspirin Allergy Intermediate HIVES Verified 08/27/23 10:21 Iodinated Contrast Media Allergy Intermediate HIVES - Verified 08/27/23 10:21 MRI DYE levofloxacin Allergy Intermediate HIVES, Verified 08/27/23 10:21 VEIN IRRITATION W/IV LEVAQUIN erythromycin base Allergy Unknown UNKNOWN Verified 08/27/23 10:21 Home Medications Medication Instructions Recorded Confirmed Type lancing device #1 ea 07/30/19 08/27/23 Rx cholecalciferol (vitamin D3) 25 25 mcg PO QAM 08/13/20 08/29/23 History mcg (1,000 unit) tablet (Vitamin D3) lancets 30 gauge (Easy Touch #200 ea 09/11/20 08/27/23 Rx Lancets) blood-glucose meter (Accu-Chek #1 ea 11/28/20 08/27/23 Rx Guide Glucose Meter) lancets (Accu-Chek Fastclix Lancet #102 ea 11/28/20 08/27/23 Rx Drum) omeprazole 20 mg capsule,delayed 20 mg PO QAM 03/05/21 08/29/23 History release escitalopram oxalate 10 mg tablet 10 mg PO QAM #90 tabs 09/04/22 08/29/23 Rx walker with foldable sides and a #1 ea 10/01/22 08/27/23 Rx tray apixaban 2.5 mg tablet (Eliquis) 2.5 mg PO BID #180 tabs 10/28/22 08/29/23 Rx furosemide 40 mg tablet (Lasix) 40 mg PO QAM #90 tabs 10/28/22 08/29/23 Rx blood sugar diagnostic (Accu-Chek #100 ea 01/21/23 08/27/23 Rx Guide test strips) pen needle, diabetic 31 gauge x #100 ea 01/21/23 08/27/23 Rx 3/16" (BD Ultra-Fine Mini Pen Needle) flash glucose scanning reader #1 ea 04/14/23 08/27/23 Rx (FreeStyle Efren 2 Avalon) flash glucose sensor (FreeStyle #1 ea 04/14/23 08/27/23 Rx Efren 2 Sensor kit) atorvastatin 40 mg tablet 40 mg PO .@2100 06/02/23 08/29/23 History mirabegron 50 mg tablet,extended 50 mg PO DAILY #90 tabs 08/04/23 08/29/23 Rx release 24 hr (Myrbetriq) metoprolol succinate 50 mg 50 mg PO DAILY #90 tabs 08/11/23 08/29/23 Rx tablet,extended release 24 hr hydrocodone 5 mg-acetaminophen 325 2 tab PO Q6H PRN pain #20 tabs 08/27/23 08/29/23 Rx mg tablet insulin glargine 100 unit/mL (3 10 unit (0.1 mL) subcut HS #15 mL 08/27/23 08/29/23 Rx mL) subcutaneous pen (Lantus Solostar U-100 Insulin) prednisone 10 mg tablet See Rx Instructions PO DAILY #30 08/27/23 08/29/23 Rx tabs albuterol sulfate 90 mcg/actuation 2 puff inhalation QID PRN 08/28/23 08/29/23 Rx aerosol inhaler shortness of breath or wheezing #8.5 grams albuterol sulfate 2.5 mg/3 mL 2.5 mg continuous nebulization QID 08/29/23 08/29/23 History (0.083 %) solution for nebulization PRN Shortness Of Breath Or Wheezing Patient History Medical History COVID-19 On anticoagulant therapy Morbid obesity with BMI of 40.0-44.9, adult Presence of combination internal cardiac defibrillator (ICD) and pacemaker last checked 10/2020; hx vtach, afib. pt believes medtronic. pt unsure of initial placement date. Cardiomyopathy History of ventricular tachycardia Sleep apnea no device On home oxygen therapy 2 LPM qHS Poor historian Osteoarthritis History of kidney stones CKD (chronic kidney disease) follows with Dr. 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) Surgical History History of cardiac radiofrequency ablation History of esophagogastroduodenoscopy (EGD) History of colonoscopy History of carpal tunnel release of both wrists History of cystoscopy with stone extraction History of left cataract surgery History of x 3 History of cholecystectomy History of appendectomy Hx of CABG CABG x1 (PACHECO TO LAD for LV hypokinesis-not CAD-- Done at the time of AVR and aortic root graft) 2002 History of aortic aneurysm repair H/O aortic valve replacement Porcine AVR and aortic root graft for proximal aortic dissection 2003 Family History Mother Diabetes Myocardial infarction Sister Diabetes Son Hypertension Denies family history of Ovarian cancer Prostate cancer Breast cancer Lung cancer Colorectal cancer Cancer Social History Smoking Status: Never smoker Second Hand Exposure: No; Do You Dip or Chew Tobacco: No; Hx Alcohol Use: No Hx Substance Use: No Preferred Language: Mal[place]ian Communication Ability: Effective Visual Impairment: Limited Hearing Ability: Normal Funeral Greeter Required: No Beliefs That Will Affect Care: None marital status: / Current Living Situation: Family Current Living Situation Comment: Patient lives with grandchildren current occupational status: disabled How many Children do You have: 3 Feels Safe at Home: Yes Childhood Exposure to Second-Hand Smoke: No Diet: low salt and regular caffeine: Yes (soda) during the past year weight has: remained stable Dental Care, Regularly: No Physical Activity Frequency: Does not Exercise Seatbelt Use: sometimes Sunscreen Use: No Assistive Devices: Glasses, Walker and Wheelchair Review of Systems Constitutional: no fever Eyes: no problem reported Ear, Nose, Mouth, Throat: no problem reported Respiratory: no cough and no dyspnea Cardiovascular: no chest pain Gastrointestinal: no abdominal pain, no nausea, no vomiting and no diarrhea/loose stools Genitourinary: no dysuria, no hematuria and no flank pain Integumentary: no problem reported Physical Exam Constitutional: not in distress Eyes: PERRL, conjunctivae normal, anicteric sclerae ENMT: external ear and nose normal, oropharynx normal Neck: trachea midline, no thyromegaly Respiratory: normal respiratory effort, lungs clear to auscultation Cardiovascular: RRR, no murmur, no edema Gastrointestinal (Abdomen): normal bowel sounds, soft, nontender, no hepatosplenomegaly Musculoskeletal: Extremities: no cyanosis and no clubbing Skin: no rashes, warm and dry Neurologic: Speech / Cognition: normal speech and normal cognition Results & Data Vital Signs (Past 12 Hours) Vital Signs Temp Pulse Resp BP Pulse Ox Pulse Ox O2 Del Method 08/30/23 10:00 126/85 08/30/23 10:00 61 19 100 Nasal Cannula 08/30/23 09:30 131/81 08/30/23 09:30 60 16 100 Nasal Cannula 08/30/23 09:01 125/78 08/30/23 09:01 68 12 100 Nasal Cannula 08/30/23 09:00 67 14 98 Nasal Cannula 08/30/23 08:00 142/88 H 08/30/23 08:00 62 24 08/30/23 07:30 123/79 08/30/23 07:30 15 100 Nasal Cannula 08/30/23 07:00 127/82 08/30/23 07:00 60 18 99 Nasal Cannula 08/30/23 06:30 132/70 08/30/23 06:00 156/87 H 08/30/23 06:00 60 17 100 08/30/23 05:00 60 100 08/30/23 05:00 150/81 H 08/30/23 04:42 100 08/30/23 04:00 126/77 08/30/23 04:00 60 14 100 08/30/23 03:36 36.7 C 08/30/23 03:00 129/83 08/30/23 03:00 60 16 91 08/30/23 02:00 138/90 08/30/23 02:00 60 9 L 99 08/30/23 01:00 60 18 98 08/30/23 01:00 128/83 08/30/23 00:00 60 08/30/23 00:00 36.6 C 08/30/23 00:00 128/79 08/30/23 00:00 60 99 O2 Del Method O2 Flow Rate O2 Flow Rate 08/30/23 10:00 08/30/23 10:00 2 08/30/23 09:30 08/30/23 09:30 2 08/30/23 09:01 08/30/23 09:01 2 08/30/23 09:00 2 08/30/23 08:00 08/30/23 08:00 08/30/23 07:30 08/30/23 07:30 2 08/30/23 07:00 08/30/23 07:00 2 08/30/23 06:30 08/30/23 06:00 08/30/23 06:00 08/30/23 05:00 08/30/23 05:00 08/30/23 04:42 Nasal Cannula 2 08/30/23 04:00 08/30/23 04:00 08/30/23 03:36 08/30/23 03:00 08/30/23 03:00 08/30/23 02:00 08/30/23 02:00 08/30/23 01:00 08/30/23 01:00 08/30/23 00:00 08/30/23 00:00 08/30/23 00:00 08/30/23 00:00 Laboratory Results Laboratory Results - last 24 hr 08/29/23 08/29/23 08/29/23 11:45 16:10 17:56 WBC RBC Hgb Hct MCV MCH MCHC RDW Std Deviation RDW Coeff of Chriss Plt Count MPV Immature Gran % (Auto) Neut % (Auto) Lymph % (Auto) [place] % (Auto) Eos % (Auto) Baso % (Auto) Neut # (Auto) Lymph # (Auto) [place] # (Auto) Eos # (Auto) Baso # (Auto) Immature Gran # (Auto) PT INR APTT PTT Ratio Sodium Potassium Chloride Carbon Dioxide Anion Gap BUN Creatinine Est Cr Clr Drug Dosing Est GFR ( Amer) Est GFR (Non-Af Amer) BUN/Creatinine Ratio Glucose POC Glucose 105 H Calcium Phosphorus Magnesium Troponin I High Sens 48.6 H 47.0 H Albumin 08/29/23 08/29/23 08/29/23 20:27 20:50 21:06 WBC RBC Hgb Hct MCV MCH MCHC RDW Std Deviation RDW Coeff of Chriss Plt Count MPV Immature Gran % (Auto) Neut % (Auto) Lymph % (Auto) [place] % (Auto) Eos % (Auto) Baso % (Auto) Neut # (Auto) Lymph # (Auto) [place] # (Auto) Eos # (Auto) Baso # (Auto) Immature Gran # (Auto) PT INR APTT PTT Ratio Sodium Potassium Chloride Carbon Dioxide Anion Gap BUN Creatinine Est Cr Clr Drug Dosing Est GFR ( Amer) Est GFR (Non-Af Amer) BUN/Creatinine Ratio Glucose POC Glucose 70 84 85 Calcium Phosphorus Magnesium Troponin I High Sens Albumin 08/29/23 08/29/23 08/30/23 23:33 23:47 04:53 WBC 6.55 RBC 4.35 Hgb 12.8 Hct 39.0 MCV 89.7 MCH 29.4 MCHC 32.8 RDW Std Deviation 48.4 H RDW Coeff of Chriss 15.0 H Plt Count 133 MPV 10.3 Immature Gran % (Auto) 0.5 Neut % (Auto) 68.8 Lymph % (Auto) 18.9 [place] % (Auto) 9.8 Eos % (Auto) 1.7 Baso % (Auto) 0.3 Neut # (Auto) 4.51 Lymph # (Auto) 1.24 [place] # (Auto) 0.64 H Eos # (Auto) 0.11 Baso # (Auto) 0.02 Immature Gran # (Auto) 0.03 PT 12.4 H INR 1.1 APTT 30 PTT Ratio 1.1 Sodium 138 Potassium 4.7 Chloride 105 Carbon Dioxide 26 Anion Gap 7 BUN 46 H Creatinine 2.54 H Est Cr Clr Drug Dosing 13.9 Est GFR ( Amer) 20.1 Est GFR (Non-Af Amer) 17.3 BUN/Creatinine Ratio 18.1 Glucose 127 H POC Glucose 125 H Calcium 9.5 Phosphorus 3.6 Magnesium 1.9 Troponin I High Sens 44.8 H Albumin 3.7 08/30/23 08/30/23 07:14 10:59 WBC RBC Hgb Hct MCV MCH MCHC RDW Std Deviation RDW Coeff of Chriss Plt Count MPV Immature Gran % (Auto) Neut % (Auto) Lymph % (Auto) [place] % (Auto) Eos % (Auto) Baso % (Auto) Neut # (Auto) Lymph # (Auto) [place] # (Auto) Eos # (Auto) Baso # (Auto) Immature Gran # (Auto) PT INR APTT PTT Ratio Sodium Potassium Chloride Carbon Dioxide Anion Gap BUN Creatinine Est Cr Clr Drug Dosing Est GFR ( Amer) Est GFR (Non-Af Amer) BUN/Creatinine Ratio Glucose POC Glucose 104 H 185 H Calcium Phosphorus Magnesium Troponin I High Sens Albumin PG Care Time/CCT Total # of Minutes Spent Total Time Spent with Patient: Total time spent is greater than 50% in coordination of care (as documented) at patient's floor/unit and/or counseling patient: Coding Level of Care Code 65773 IN/OBS CONSULT LVL 5,80M Diagnoses Acute kidney injury N17.9 Chronic kidney disease, stage 4 (severe) N18.4 Essential hypertension I10 Hypertension type: essential hypertension Cardiomyopathy I42.9 (3) Hypertension Hypertension type: essential hypertension Qualified Code(s): I10 - Essential (primary) hypertension
[2023-08-30] MEDS: AMIODARONE 200 MG TAB PO SCH (17:19)
[2023-08-30 18:00] LABS: Appearance Urine Clear (Clear); Bilirubin Urine Negative (Negative); Blood Urine Negative (Negative); Color Urine Yellow; Glucose Urine UA Negative (Negative); Ketones Urine Negative (Negative); Leukocyte Esterase Urine Negative (Negative); Nitrite Urine Negative (Negative); Protein Urine Negative (Negative); Specific Gravity Urine 1.017 (1.000-1.030); Urobilinogen Urine Negative (Negative)
[2023-08-30 18:27] LABS: Creatinine Urine Random 107.8 mg/dl; Protein Creatinine Ratio Urine 0.1 (0-0.2); Total Protein Urine Random 14.6 mg/dl (0-11.9)
--- NOTE | 2023-08-30 21:26 | Hospitalist Progress Note ---
Date of Service August 30, 2023 Assessment & Plan (1) Ventricular tachycardia: (2) Implantable cardioverter-defibrillator discharge: (3) Hyperlipidemia: (4) Hypertension: (5) CHF (congestive heart failure), NYHA class III: (6) Cardiomyopathy: (7) Coronary artery disease: (8) Biventricular ICD (implantable cardioverter-defibrillator) in place: (9) Chronic kidney disease, stage 4 (severe): (10) AF (paroxysmal atrial fibrillation): (11) Admitted to intensive care unit: Plan Ventricular tachycardia/status post implantable cardioverter defibrillator discharge/cardiomyopathy- Continue amiodarone bolus/drip per protocol Continue metoprolol with hold parameters Continue apixaban Admit to intensive care unit Now ou tof the ICU. Placed on IV amiodarone, will transition to oral amiodarone but will overlap for 24 hours. Appreciate input from Cardio. complete echocardiogram Serial laboratories CHF/NYHA stage III- Hold furosemide due to relative dehydration Acute kidney injury superimposed on CKD- Creatinine 2.33 upon admission, with base 1.99 Received 1 L normal saline from the ED Place on NSS at 60 mL/h x 500 mL Follow serial renal function panel and magnesium levels Diabetes mellitus Continue insulin glargine 10 units subcu at bedtime Placed on Accu-Cheks with NovoLog SSI Acute on chronic low back pain/lower extremity radiculopathy- Acetaminophen 650 mg by mouth every 6 hours as needed for mild pain or fever Hydrocodone 5/325 2 by mouth every 6 hours as needed for moderate Asthma- Continue albuterol nebulizer every 4 hours as needed Bladder spasms/incontinence- Continue mirabegron Hyperlipidemia- Continue atorvastatin Depression- Continue Lexapro Admission and Anticipated Discharge Date Admission Date: August 29, 2023 Subjective Patient reports feeling well. She reports no new symptoms. Review of Systems Review of Systems: All systems reviewed & are unremarkable except as noted in HPI & below Physical Exam Physical Exam: The patient is awake, alert and oriented 3, well developed and well nourished, normocephalic and atraumatic, lying in bed and in no acute distress. HEENT--PERRL, EOMI Neck--supple. No JVD. Heart--intermittent paced and atrial fibrillation. No murmurs, rubs or gallops. Lungs--clear bilaterally Abdomen--normal bowel sounds and soft. Nontender. Nondistended Extremities--no cyanosis or clubbing. No edema. Dermatologic--normal skin turgor, normal color, no abnormal lymph nodes, no rash. Neurologic--cranial nerves II through XII grossly intact. Rheumatologic--normal range of motion. Psychiatric--normal affect. Results & Data Results & Data Vital Signs (Past 12 Hours) Vital Signs Temp Pulse Pulse Resp BP BP Pulse Ox 08/30/23 19:23 36.5 C 61 18 111/70 99 08/30/23 17:43 124/83 08/30/23 17:43 66 13 100 08/30/23 17:00 61 22 93 08/30/23 16:01 112/73 08/30/23 16:01 60 19 94 08/30/23 16:00 60 08/30/23 16:00 60 19 93 08/30/23 15:30 120/73 08/30/23 15:30 63 4 L 93 08/30/23 15:01 116/61 08/30/23 15:01 60 22 94 08/30/23 15:00 60 20 95 08/30/23 14:30 120/72 08/30/23 14:30 60 18 97 08/30/23 14:00 116/72 08/30/23 14:00 60 18 100 08/30/23 13:36 93/66 L 08/30/23 13:36 87 27 H 93 08/30/23 13:28 08/30/23 13:01 116/72 08/30/23 13:01 60 19 97 08/30/23 13:00 60 9 L 100 08/30/23 13:00 61 08/30/23 12:31 60 19 08/30/23 12:31 100/79 08/30/23 12:21 152/71 H 08/30/23 12:21 65 15 08/30/23 12:00 66 19 100 08/30/23 11:31 111/71 08/30/23 11:31 60 100 08/30/23 11:00 115/76 08/30/23 11:00 60 16 100 08/30/23 10:31 57 L 18 100 08/30/23 10:31 144/91 H 08/30/23 10:00 126/85 08/30/23 10:00 61 19 100 08/30/23 09:30 131/81 08/30/23 09:30 60 16 100 O2 Del Method O2 Flow Rate 08/30/23 19:23 Nasal Cannula 4 08/30/23 17:43 08/30/23 17:43 08/30/23 17:00 08/30/23 16:01 08/30/23 16:01 08/30/23 16:00 08/30/23 16:00 08/30/23 15:30 08/30/23 15:30 08/30/23 15:01 08/30/23 15:01 08/30/23 15:00 08/30/23 14:30 08/30/23 14:30 08/30/23 14:00 08/30/23 14:00 08/30/23 13:36 08/30/23 13:36 08/30/23 13:28 Room Air, Nasal Cannula 08/30/23 13:01 08/30/23 13:01 Nasal Cannula 2 08/30/23 13:00 Nasal Cannula 2 08/30/23 13:00 08/30/23 12:31 08/30/23 12:31 08/30/23 12:21 08/30/23 12:21 08/30/23 12:00 Nasal Cannula 2 08/30/23 11:31 08/30/23 11:31 Nasal Cannula 2 08/30/23 11:00 08/30/23 11:00 Nasal Cannula 2 08/30/23 10:31 Nasal Cannula 2 08/30/23 10:31 08/30/23 10:00 08/30/23 10:00 Nasal Cannula 2 08/30/23 09:30 08/30/23 09:30 Nasal Cannula 2 PG Care Time/CCT Total # of Minutes Spent Total Time Spent with Patient: Total time spent is greater than 50% in coordination of care (as documented) at patient's floor/unit and/or counseling patient: Coding Level of Care Code 99564 SUB INP/OBS CARE 2/35MIN Diagnoses Ventricular tachycardia I47.20 Implantable cardioverter-defibrillator discharge Z45.02 Hyperlipidemia, unspecified hyperlipidemia type E78.5 Hyperlipidemia type: unspecified Essential hypertension I10 Hypertension type: essential hypertension Acute on chronic systolic congestive heart failure, NYHA class 3 I50.23 Congestive heart failure chronicity: acute on chronic Congestive heart failure type: systolic Cardiomyopathy I42.9 Coronary artery disease involving [place] coronary artery of [place] heart without angina pectoris I25.10 Associated angina: without angina Coronary Disease-Associated Artery/Lesion type: [place] artery [place] vs. transplanted heart: [place] heart Biventricular ICD (implantable cardioverter-defibrillator) in place Z95.810 Chronic kidney disease, stage 4 (severe) N18.4 AF (paroxysmal atrial fibrillation) I48.0 Admitted to intensive care unit Z78.9 (3) Hyperlipidemia Hyperlipidemia type: unspecified Qualified Code(s): E78.5 - Hyperlipidemia, unspecified (4) Hypertension Hypertension type: essential hypertension Qualified Code(s): I10 - Essential (primary) hypertension (5) CHF (congestive heart failure), NYHA class III Congestive heart failure chronicity: acute on chronic Congestive heart failure type: systolic Qualified Code(s): I50.23 - Acute on chronic systolic (congestive) heart failure (7) Coronary artery disease Associated angina: without angina Coronary Disease-Associated Artery/Lesion type: [place] artery [place] vs. transplanted heart: [place] heart Qualified Code(s): I25.10 - Atherosclerotic heart disease of [place] coronary artery without angina pectoris
[2023-08-31 07:09] LABS: Basophils # (auto) 0.03 K/uL (0.00-0.20); Basophils % (auto) 0.5 %; Eosinophils % (auto) 1.7 %; Hematocrit (blood only) 37.1 % (37.0-47.0); Hemoglobin 12.5 g/dl (12.0-16.0); Immature Granulocytes # (auto) 0.02 K/uL (0.01-0.20); Immature Granulocytes % (auto) 0.3 %; Mean Corpuscular Hemoglobin 29.5 pg (25.0-34.0); Mean Corpuscular Hgb Conc 33.7 g/dL (32.0-36.0); Mean Corpuscular Volume 87.5 fL (80.0-100.0); Mean Platelet Volume 10.4 fL (9.4-12.4); Monocytes % (auto) 8.5 %; Neutrophils # (auto) 4.24 K/uL (1.40-6.50); Platelet Count 125 K/uL (130-400); RDW Coefficient of Variation 15.1 % (11.5-14.5); RDW Standard Deviation 47.3 fL (36.4-46.3); Red Blood Count 4.24 M/uL (4.20-5.40); White Blood Count 5.89 K/ul (4.8-10.8)
[2023-08-31 07:26] LABS: Albumin Level 3.4 gm/dl (3.4-5.0); BUN Creatinine Ratio 19.5 (10-20); Calcium 9.4 mg/dl (8.6-10.3); Creatinine Clr Calc Pharmacy 14.5 ml/min; Est GFR (African American) 20.4 ml/min; Est GFR (Non-African American) 17.6 ml/min; Magnesium 2.1 mg/dl (1.7-2.4); Potassium 4.2 mmol/L (3.5-5.1)
[2023-08-31 07:42] LABS: INR 1.2 (0.9-1.1); Partial Thromboplastin Time 29 Seconds (21-31); Prothrombin Time 12.9 Seconds (9.0-12.0)
--- NOTE | 2023-08-31 09:18 | Nephrology Progress Note ---
Date of Service August 31, 2023 Assessment & Plan (1) Acute kidney injury: Plan: * SUSSY/CKD likely related to impaired renal perfusion associated w/ recurrent ventricular tachycardia requiring defibrillation x2 * Kidney function remains stable at this time (Cr 2.51) * Patient is now in a paced rhythm. Cardiology has transitioned her to oral amiodarone. Volume status and electrolyte balance are acceptable * 08/30/23 urinalysis was negative for protein, blood. Microscopy was negative for casts. UPCR 0.1 * Monitor PRP (2) Chronic kidney disease, stage 4 (severe): Plan: * CKD stage G4/A2 (advanced impairment). Baseline Cr 2.2 w/ EGFR 21 cc/min. 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 Quick was evaluated in her hospital room this morning. She was breathing comfortably on O2 NC and denied fever, angina or palpitations. Review of Systems Constitutional: no fever Eyes: no problem reported Ear, Nose, Mouth, Throat: no problem reported Respiratory: no cough and no dyspnea Cardiovascular: no chest pain Gastrointestinal: no abdominal pain, no nausea, no vomiting and no diarrhea/loose stools Genitourinary: no dysuria, no hematuria and no flank pain Integumentary: no problem reported Physical Exam Constitutional: not in distress Eyes: PERRL, conjunctivae normal, anicteric sclerae ENMT: external ear and nose normal, oropharynx normal Neck: trachea midline, no thyromegaly Respiratory: normal respiratory effort, lungs clear to auscultation Cardiovascular: RRR, no murmur, no edema Gastrointestinal (Abdomen): normal bowel sounds, soft, nontender, no hepatosplenomegaly Musculoskeletal: Extremities: no cyanosis and no clubbing Skin: no rashes, warm and dry Neurologic: Speech / Cognition: normal speech and normal cognition Results & Data Vital Signs (Past 12 Hours) Vital Signs Temp Pulse Pulse Resp BP Pulse Ox Pulse Ox 08/31/23 07:03 36.5 C 58 L 20 110/68 97 08/31/23 07:00 08/31/23 04:00 100 08/31/23 03:21 36.4 C L 64 16 129/82 96 08/31/23 00:18 36.6 C 62 18 113/74 96 08/30/23 21:55 60 O2 Del Method O2 Del Method O2 Flow Rate O2 Flow Rate 08/31/23 07:03 Nasal Cannula 3 08/31/23 07:00 Nasal Cannula 3 08/31/23 04:00 Nasal Cannula 1 08/31/23 03:21 Nasal Cannula 1 08/31/23 00:18 Nasal Cannula 4 08/30/23 21:55 Laboratory Results Laboratory Results - last 24 hr 08/30/23 08/30/23 08/30/23 10:59 15:49 20:23 WBC RBC Hgb Hct MCV MCH MCHC RDW Std Deviation RDW Coeff of Chriss Plt Count MPV Immature Gran % (Auto) Neut % (Auto) Lymph % (Auto) [place] % (Auto) Eos % (Auto) Baso % (Auto) Neut # (Auto) Lymph # (Auto) [place] # (Auto) Eos # (Auto) Baso # (Auto) Immature Gran # (Auto) PT INR APTT PTT Ratio Sodium Potassium Chloride Carbon Dioxide Anion Gap BUN Creatinine Est Cr Clr Drug Dosing Est GFR ( Amer) Est GFR (Non-Af Amer) BUN/Creatinine Ratio Glucose POC Glucose 185 H 96 162 H Calcium Phosphorus Magnesium B-Natriuretic Peptide Albumin Urine Color Urine Appearance Urine pH Ur Specific [place] Urine Protein Urine Glucose (UA) Urine Ketones Urine Blood Urine Nitrite Urine Bilirubin Urine Urobilinogen Ur Leukocyte Esterase Ur Random Creatinine U Random Total Protein Protein/Creatinin Ratio 08/30/23 08/31/23 08/31/23 Unknown 06:31 08:02 WBC 5.89 RBC 4.24 Hgb 12.5 Hct 37.1 MCV 87.5 MCH 29.5 MCHC 33.7 RDW Std Deviation 47.3 H RDW Coeff of Chriss 15.1 H Plt Count 125 L MPV 10.4 Immature Gran % (Auto) 0.3 Neut % (Auto) 72.0 Lymph % (Auto) 17.0 [place] % (Auto) 8.5 Eos % (Auto) 1.7 Baso % (Auto) 0.5 Neut # (Auto) 4.24 Lymph # (Auto) 1.00 L [place] # (Auto) 0.50 Eos # (Auto) 0.10 Baso # (Auto) 0.03 Immature Gran # (Auto) 0.02 PT 12.9 H INR 1.2 H APTT 29 PTT Ratio 1.0 Sodium 138 Potassium 4.2 Chloride 105 Carbon Dioxide 25 Anion Gap 8 BUN 49 H Creatinine 2.51 H Est Cr Clr Drug Dosing 14.5 Est GFR ( Amer) 20.4 Est GFR (Non-Af Amer) 17.6 BUN/Creatinine Ratio 19.5 Glucose 136 H POC Glucose 119 H Calcium 9.4 Phosphorus 3.0 Magnesium 2.1 B-Natriuretic Peptide 495 H Albumin 3.4 Urine Color Yellow Urine Appearance Clear Urine pH 5.0 Ur Specific [place] 1.017 Urine Protein Negative Urine Glucose (UA) Negative Urine Ketones Negative Urine Blood Negative Urine Nitrite Negative Urine Bilirubin Negative Urine Urobilinogen Negative Ur Leukocyte Esterase Negative Ur Random Creatinine 107.8 U Random Total Protein 14.6 H Protein/Creatinin Ratio 0.1 PG Care Time/CCT Total # of Minutes Spent Total Time Spent with Patient: Total time spent is greater than 50% in coordination of care (as documented) at patient's floor/unit and/or counseling patient: Coding Level of Care Code 95712 SUB INP/OBS CARE 3/50MIN Diagnoses Acute kidney injury N17.9 Chronic kidney disease, stage 4 (severe) N18.4 Essential hypertension I10 Hypertension type: essential hypertension Cardiomyopathy I42.9 (3) Hypertension Hypertension type: essential hypertension Qualified Code(s): I10 - Essential (primary) hypertension
--- NOTE | 2023-08-31 09:56 | XRay Report ---
XR chest 2V PA/lateral CLINICAL HISTORY: hypoxia COMPARISON STUDY: Chest CT August 03, 2019. Chest radiograph August 29, 2023 at 6:47 AM. FINDINGS: There are median sternotomy wires and a left subclavian pacer/AICD. Cardiomegaly is unchang ed. There is no radiographic evidence for pulmonary edema. Suspected trace bilateral pleural effusion s are noted on lateral projection. There is no consolidation to suggest pneumonia. Minimal bibasilar opacities favor atelectasis. IMPRESSION: 1. Cardiomegaly without radiographic evidence for pulmonary edema. 2. Trace bilateral pleural effusions. ACT 112: Negative or not required by law. Electronically signed by: Javier Garza M.D. 08/31/2023 9:54 AM
--- NOTE | 2023-08-31 10:21 | Cardiology Progress Note ---
Date of Service August 31, 2023 Assessment & Plan (1) Ventricular tachycardia: (2) Elevated troponin: (3) Aortic stenosis: (4) Coronary artery disease: (5) Cardiomyopathy: Plan 1. Ventricular tachycardia: She has been having increasing difficulty with ventricular tachycardia and will need a medication to suppress it. On amiodarone here in the hospital she has had suppression of her ventricular tachycardia. Amiodarone is the best long-term option and I am going to continue it. There is no obvious cause for the increase in ventricular tachycardia currently, ischemia does not seem to be involved, she is not in worse congestive heart failure and her electrolytes are within normal limits. I am going to discontinue intravenous amiodarone today and she should be sent home on oral. I would recommend sending her home on 400 mg twice a day for 2 weeks (she is not at risk for bradycardia with her pacemaker) and then reduce to 400 mg daily. 2. Elevated troponin: Her troponin was slightly elevated but stable, this does not appear to be an acute ischemic event. 3. Aortic stenosis: Clinically stable 4. Coronary disease: Although she has coronary disease it does not seem to be a cause of her current VT progression. Ischemic evaluation should not be necessary at this time. 5. Cardiomyopathy: She does have a severe cardiomyopathy but does not seem to have heart failure symptoms or signs currently. She does have dyspnea on exertion but that would be expected. Admission and Anticipated Discharge Date Admission Date: August 29, 2023 Subjective She is feeling well today, she has no side effects on amiodarone. She has had no palpitations. She does get very short of breath with ambulation but feels that that has improved. Physical Exam Physical Exam: Constitutional: Alert, cooperative and in no distress. She is overweight. HEENT: Unremarkable Neck: No jugular venous distention, carotid pulses are normal and equal bilaterally without bruits. Pulmonary: Clear to auscultation bilaterally. Cardiac: Regular rhythm (paced during atrial fibrillation) with no murmur, gallop or rub. Abdomen: Soft, nontender with normal bowel sounds. Extremities: No edema. Neurologic: No focal findings. Skin: No rash, ecchymoses or petechiae. Her device site is well-healed. Results & Data Vital Signs (Past 12 Hours) Vital Signs Temp Pulse Resp BP Pulse Ox Pulse Ox O2 Del Method 08/31/23 07:03 36.5 C 58 L 20 110/68 97 Nasal Cannula 08/31/23 07:00 Nasal Cannula 08/31/23 04:00 100 08/31/23 03:21 36.4 C L 64 16 129/82 96 Nasal Cannula 08/31/23 00:18 36.6 C 62 18 113/74 96 Nasal Cannula O2 Del Method O2 Flow Rate O2 Flow Rate 08/31/23 07:03 3 08/31/23 07:00 3 08/31/23 04:00 Nasal Cannula 1 08/31/23 03:21 1 08/31/23 00:18 4 Laboratory Results Cardiac Enzymes 08/31/23 Range/Units 06:31 B-Natriuretic Peptide 495 H (0-100) pg/ml Coagulation 08/31/23 Range/Units 06:31 PT 12.9 H (9.0-12.0) Seconds APTT 29 (21-31) Seconds B-Natriuretic Peptide 495 H (0-100) pg/ml CBC 08/31/23 Range/Units 06:31 WBC 5.89 (4.8-10.8) K/ul RBC 4.24 (4.20-5.40) M/uL Hgb 12.5 (12.0-16.0) g/dl Hct 37.1 (37.0-47.0) % Plt Count 125 L (130-400) K/uL Neut # (Auto) 4.24 (1.40-6.50) K/uL Lymph # (Auto) 1.00 L (1.20-3.40) K/uL [place] # (Auto) 0.50 (0.11-0.59) K/uL Eos # (Auto) 0.10 (0.00-0.50) K/uL Baso # (Auto) 0.03 (0.00-0.20) K/uL Comprehensive Metabolic Panel 08/31/23 Range/Units 06:31 Sodium 138 (136-145) mmol/L Potassium 4.2 (3.5-5.1) mmol/L Chloride 105 (98-107) mmol/L Carbon Dioxide 25 (21-32) mmol/L BUN 49 H (6-23) mg/dl Creatinine 2.51 H (0.6-1.2) mg/dl Glucose 136 H (70-99(Fasting)) mg/dl Calcium 9.4 (8.6-10.3) mg/dl Albumin 3.4 (3.4-5.0) gm/dl Intake and Output 08/30/23 08/31/23 08/31/23 22:59 06:59 14:59 Intake Total 196.225 / 621.225 182.308 / 182.308 Output Total 200 / 475 Balance -3.775 / 146.225 182.308 / 182.308 Intake: IV 196.225 / 496.225 182.308 / 182.308 Amiodarone / D5w 360 mg In 200 196.225 / 396.225 182.308 / 182.308 ml @ 0.5 MG/MIN 16.667 mls/hr IV .Q12H [place] Rx#:[id number] Output: Urine 200 / 475 Other: Weight 96.1 kg Weight Measurement Method Built in [facility] Diagnostic Findings Telemetry: Underlying atrial fibrillation with ventricular pacing throughout. PG Care Time/CCT Total # of Minutes Spent Total Time Spent with Patient: Total time spent is greater than 50% in coordination of care (as documented) at patient's floor/unit and/or counseling patient: Coding Level of Care Code 12122 SUB INP/OBS CARE 2/35MIN Diagnoses Ventricular tachycardia I47.20 Elevated troponin R74.8 Aortic stenosis I35.0 Coronary artery disease involving [place] coronary artery of [place] heart without angina pectoris I25.10 Coronary Disease-Associated Artery/Lesion type: [place] artery [place] vs. transplanted heart: [place] heart Associated angina: without angina Cardiomyopathy I42.9 (4) Coronary artery disease Coronary Disease-Associated Artery/Lesion type: [place] artery [place] vs. transplanted heart: [place] heart Associated angina: without angina Qualified Code(s): I25.10 - Atherosclerotic heart disease of [place] coronary artery without angina pectoris
--- NOTE | 2023-08-31 12:00 | Discharge Summary ---
Date of Service August 31, 2023 Admission HPI Per Admitting Provider The patient is a 77-year-old female with a past medical history including ventricular tachycardia, presence of biventricular ICD, cervicalgia, chronic low back pain with radiculopathy, hypertension, hyperlipidemia, CAD, cardiomyopathy, CHF NYHA class III, CKD stage IV, diabetes mellitus, DIAMOND, paroxysmal atrial fibrillation, esophageal dysmotility and urinary urge incontinence. She presents to the emergency department as noted above. She will be continued on amiodarone drip, admitted to the ICU with cardiology consult. The patient had recently had an injury to her legs, and was having worsening low back pain with radiculopathy symptoms, and had been placed on a course of prednisone tapering dose 2 days ago. She is also taking [place] as needed Discharge Data Allergies Allergy/AdvReac Type Severity Reaction Status Date / Time aspirin Allergy Intermediate HIVES Verified 08/27/23 10:21 Iodinated Contrast Media Allergy Intermediate HIVES - Verified 08/27/23 10:21 MRI DYE levofloxacin Allergy Intermediate HIVES, Verified 08/27/23 10:21 VEIN IRRITATION W/IV LEVAQUIN erythromycin base Allergy Unknown UNKNOWN Verified 08/27/23 10:21 Consultations 08/29/23 03:01 ED Decision to Admit Stat 08/29/23 03:49 Consult Cardiology Routine 08/29/23 04:42 Consult Vest [place] Routine 08/30/23 10:12 Consult Nephrology Routine 08/31/23 11:59 [facility] CHF Program Referral Routine Hospital Course (1) Ventricular tachycardia: (2) Implantable cardioverter-defibrillator discharge: (3) Hyperlipidemia: (4) Hypertension: (5) CHF (congestive heart failure), NYHA class III: (6) Cardiomyopathy: (7) Coronary artery disease: (8) Biventricular ICD (implantable cardioverter-defibrillator) in place: (9) Chronic kidney disease, stage 4 (severe): (10) AF (paroxysmal atrial fibrillation): (11) Admitted to intensive care unit: Plan Ventricular tachycardia/status post implantable cardioverter defibrillator discharge/cardiomyopathy- Continue amiodarone bolus/drip per protocol Continue metoprolol with hold parameters Continue apixaban Admit to intensive care unit Now ou tof the ICU. Placed on IV amiodarone, will transition to oral amiodarone but will overlap for 24 hours. Appreciate input from Cardio. complete echocardiogram Serial laboratories CHF/NYHA stage III- Hold furosemide due to relative dehydration Acute kidney injury superimposed on CKD- Creatinine 2.33 upon admission, with base 1.99 Received 1 L normal saline from the ED Place on NSS at 60 mL/h x 500 mL Follow serial renal function panel and magnesium levels Diabetes mellitus Continue insulin glargine 10 units subcu at bedtime Placed on Accu-Cheks with NovoLog SSI Acute on chronic low back pain/lower extremity radiculopathy- Acetaminophen 650 mg by mouth every 6 hours as needed for mild pain or fever Hydrocodone 5/325 2 by mouth every 6 hours as needed for moderate Asthma- Continue albuterol nebulizer every 4 hours as needed Bladder spasms/incontinence- Continue mirabegron Hyperlipidemia- Continue atorvastatin Depression- Continue Lexapro Discharge Plan Discharge Items Reason For Visit: VTACH Follow-up/Referrals: Aimee Crook CRNP [Primary Care Provider] - Addtl Attending Provider Instructions: Plan is to discharge home on 400 mg of amiodarone twice a day for 2 weeks then reduce to 400 mg daily. Recommend followup with PCP in 1-2 weeks. Recommend followup with Cardiology within about 4-6 weeks Pending Studies at Discharge: No Medications and DC Order Prescriptions: New amiodarone 200 mg Tablet See Rx Instructions .ROUTE .COMPLEX 30 Days Qty: 120 0RF Rx Instructions: Take 2 tablets twice a day by mouth with meals for 2 weeks. Then transition to 2 tablets once a day ongoing Continued (DME) lancing device Misc See Rx Instructions .ROUTE .MEDSUPPLY Qty: 1 0RF Rx Instructions: As directed (DME) lancets [Easy Touch Lancets] 30 gauge misc See Rx Instructions .ROUTE .MEDSUPPLY Qty: 200 5RF Rx Instructions: TEST TWICE DAILY; Dx.code- E11.69 escitalopram oxalate 10 mg tablet 10 mg PO QAM Qty: 90 3RF (DME) Accu-Chek Guide test strips Strip See Rx Instructions .ROUTE .MEDSUPPLY Qty: 100 9RF Rx Instructions: Check BID, Dx code E11.9 (DME) pen needle, diabetic [BD Ultra-Fine Mini Pen Needle] 31 gauge x 3/16" needle See Dose Instructions .ROUTE .MEDSUPPLY Qty: 100 5RF Rx Instructions: INJECT INSULIN ONCE DAILY; DX CODE E11.69 Myrbetriq 50 mg tablet extended release 24 hr 50 mg PO DAILY Qty: 90 3RF albuterol sulfate 90 mcg/actuation HFA aerosol inhaler 2 puff inhalation QID PRN (Reason: shortness of breath or wheezing) Qty: 8.5 3RF (DME) blood-glucose meter [Accu-Chek Guide Glucose Meter] Misc See Rx Instructions .ROUTE .MEDSUPPLY Qty: 1 0RF Rx Instructions: Test BID, Dx code E11.9 (DME) lancets [Accu-Chek Fastclix Lancet Drum] Misc See Rx Instructions .ROUTE .MEDSUPPLY Qty: 102 3RF Rx Instructions: Check BSG BID, Dx code E11.9 omeprazole 20 mg capsule,delayed release(DR/EC) 20 mg PO QAM (DME) walker with foldable sides and a tray See Rx Instructions .Route .MEDSUPPLY Qty: 1 0RF Rx Instructions: As directed metoprolol succinate 50 mg tablet extended release 24 hr 50 mg PO DAILY Qty: 90 3RF (DME) FreeStyle Efren 2 [place] Misc See Rx Instructions .Route Qty: 1 0RF Rx Instructions: check BS 2-3 x a day (DME) FreeStyle Efren 2 Sensor Kit See Rx Instructions .Route Qty: 1 5RF Rx Instructions: test 2-3 x a day Eliquis 2.5 mg tablet 2.5 mg PO BID Qty: 180 3RF insulin glargine [Lantus Solostar U-100 Insulin] 100 unit/mL (3 mL) insulin pen 10 unit SUBCUT HS Qty: 15 5RF hydrocodone-acetaminophen 5-325 mg tablet 2 tab PO Q6H PRN (Reason: pain) Qty: 20 0RF Rx Instructions: max of 6 per day cholecalciferol (vitamin D3) [Vitamin D3] 25 mcg (1,000 unit) Tablet 25 mcg PO QAM atorvastatin 40 mg tablet 40 mg PO .@2100 albuterol sulfate 2.5 mg /3 mL (0.083 %) solution for nebulization 2.5 mg continuous nebulization QID PRN (Reason: Shortness Of Breath Or Wheezing) Changed furosemide [Lasix] 40 mg tablet 40 mg PO Q2D Qty: 90 3RF Rx Instructions: 40 mg PO daily. Take additional dose daily for weight > 214 lbs or symptoms of fluid retention; Discontinued prednisone 10 mg tablet See Rx Instructions PO DAILY Qty: 30 0RF Rx Instructions: Take 4 tabs daily x 3 days, then take 3 tabs daily x 3 days, then take 2 tabs daily x 3 days, then take 1 tab daily x 3 days Discharge Orders: Discharge Order- CHF (Routine); Ordered 08/31/23 Ordered By: Arturo Sharpe Admission Data Admit Date/Time: 08/29/23 03:49 Attending Provider: Arturo Sharpe Admit Provider: Lewis Pettit Primary Care Provider: Aimee Crook Other Providers: Lewis Pettit; Pedro Li; Richy Matias; Jose Gutiérrez; Marley Zuniga; Livan Casanova; Citlaly Kang Coding Diagnoses Ventricular tachycardia I47.20 Implantable cardioverter-defibrillator discharge Z45.02 Hyperlipidemia, unspecified hyperlipidemia type E78.5 Hyperlipidemia type: unspecified Essential hypertension I10 Hypertension type: essential hypertension Acute on chronic systolic congestive heart failure, NYHA class 3 I50.23 Congestive heart failure type: systolic Congestive heart failure chronicity: acute on chronic Cardiomyopathy I42.9 Coronary artery disease involving [place] coronary artery of [place] heart without angina pectoris I25.10 Coronary Disease-Associated Artery/Lesion type: [place] artery [place] vs. transplanted heart: [place] heart Associated angina: without angina Biventricular ICD (implantable cardioverter-defibrillator) in place Z95.810 Chronic kidney disease, stage 4 (severe) N18.4 AF (paroxysmal atrial fibrillation) I48.0 Admitted to intensive care unit Z78.9
--- NOTE | 2023-08-31 13:42 | Hospitalist Progress Note ---
Date of Service August 31, 2023 Assessment & Plan (1) Ventricular tachycardia: (2) Implantable cardioverter-defibrillator discharge: (3) Hyperlipidemia: (4) Hypertension: (5) CHF (congestive heart failure), NYHA class III: (6) Cardiomyopathy: (7) Coronary artery disease: (8) Biventricular ICD (implantable cardioverter-defibrillator) in place: (9) Chronic kidney disease, stage 4 (severe): (10) AF (paroxysmal atrial fibrillation): (11) Admitted to intensive care unit: Plan Ventricular tachycardia/status post implantable cardioverter defibrillator discharge/cardiomyopathy- Continue amiodarone bolus/drip per protocol Continue metoprolol with hold parameters Continue apixaban Admitted to the intensive care unit Now patient is in PCY. Placed initially on IV amiodarone, and transitioned to oral amiodarone eith overlap for 24 hours. Appreciate input from Cardio. complete echocardiogram Serial laboratories. Patient requires PT/OT prior to discharge. 2 step completed on 08/30 showed that patient needs 2 liters on ambulation. CHF/NYHA stage III- Hold furosemide due to relative dehydration Acute kidney injury superimposed on CKD- Creatinine 2.33 upon admission, with base 1.99 Received 1 L normal saline from the ED Place on NSS at 60 mL/h x 500 mL Follow serial renal function panel and magnesium levels Diabetes mellitus Continue insulin glargine 10 units subcu at bedtime Placed on Accu-Cheks with NovoLog SSI Acute on chronic low back pain/lower extremity radiculopathy- Acetaminophen 650 mg by mouth every 6 hours as needed for mild pain or fever Hydrocodone 5/325 2 by mouth every 6 hours as needed for moderate Asthma- Continue albuterol nebulizer every 4 hours as needed Bladder spasms/incontinence- Continue mirabegron Hyperlipidemia- Continue atorvastatin Depression- Continue Lexapro Admission and Anticipated Discharge Date Admission Date: August 29, 2023 Subjective Patient reports no new symptoms. Review of Systems Review of Systems: All systems reviewed & are unremarkable except as noted in HPI & below Physical Exam Physical Exam: The patient is awake, alert and oriented 3, well developed and well nourished, normocephalic and atraumatic, lying in bed and in no acute distress. HEENT--PERRL, EOMI Neck--supple. No JVD. Heart--intermittent paced and atrial fibrillation. No murmurs, rubs or gallops. Lungs--clear bilaterally Abdomen--normal bowel sounds and soft. Nontender. Nondistended Extremities--no cyanosis or clubbing. No edema. Dermatologic--normal skin turgor, normal color, no abnormal lymph nodes, no rash. Neurologic--cranial nerves II through XII grossly intact. Rheumatologic--normal range of motion. Psychiatric--normal affect. Results & Data Results & Data Vital Signs (Past 12 Hours) Vital Signs Temp Pulse Pulse Pulse Pulse Resp Resp 08/31/23 11:42 96 H 91 H 78 28 H 08/31/23 11:19 36.2 C L 60 19 08/31/23 07:03 36.5 C 58 L 20 08/31/23 07:00 08/31/23 04:00 08/31/23 03:21 36.4 C L 64 16 Resp Resp BP Pulse Ox Pulse Ox Pulse Ox Pulse Ox 08/31/23 11:42 28 H 18 90 86 L 97 08/31/23 11:19 108/55 L 94 08/31/23 07:03 110/68 97 08/31/23 07:00 08/31/23 04:00 08/31/23 03:21 129/82 96 Pulse Ox O2 Del Method O2 Del Method O2 Flow Rate O2 Flow Rate O2 Flow Rate 08/31/23 11:42 2 08/31/23 11:19 Room Air 08/31/23 07:03 Nasal Cannula 3 08/31/23 07:00 Nasal Cannula 3 08/31/23 04:00 100 Nasal Cannula 1 08/31/23 03:21 Nasal Cannula 1 PG Care Time/CCT Total # of Minutes Spent Total Time Spent with Patient: Total time spent is greater than 50% in coordination of care (as documented) at patient's floor/unit and/or counseling patient: Coding Level of Care Code 36304 SUB INP/OBS CARE 2/35MIN Diagnoses Ventricular tachycardia I47.20 Implantable cardioverter-defibrillator discharge Z45.02 Hyperlipidemia, unspecified hyperlipidemia type E78.5 Hyperlipidemia type: unspecified Essential hypertension I10 Hypertension type: essential hypertension Acute on chronic systolic congestive heart failure, NYHA class 3 I50.23 Congestive heart failure chronicity: acute on chronic Congestive heart failure type: systolic Cardiomyopathy I42.9 Coronary artery disease involving [place] coronary artery of [place] heart without angina pectoris I25.10 Associated angina: without angina Coronary Disease-Associated Artery/Lesion type: [place] artery [place] vs. transplanted heart: [place] heart Biventricular ICD (implantable cardioverter-defibrillator) in place Z95.810 Chronic kidney disease, stage 4 (severe) N18.4 AF (paroxysmal atrial fibrillation) I48.0 Admitted to intensive care unit Z78.9 Time Spent (min) 35 (3) Hyperlipidemia Hyperlipidemia type: unspecified Qualified Code(s): E78.5 - Hyperlipidemia, unspecified (4) Hypertension Hypertension type: essential hypertension Qualified Code(s): I10 - Essential (primary) hypertension (5) CHF (congestive heart failure), NYHA class III Congestive heart failure chronicity: acute on chronic Congestive heart failure type: systolic Qualified Code(s): I50.23 - Acute on chronic systolic (congestive) heart failure (7) Coronary artery disease Associated angina: without angina Coronary Disease-Associated Artery/Lesion type: [place] artery [place] vs. transplanted heart: [place] heart Qualified Code(s): I25.10 - Atherosclerotic heart disease of [place] coronary artery without angina pectoris
[2023-09-01 06:54] LABS: Partial Thromboplastin Time 29 Seconds (21-31)
--- NOTE | 2023-09-01 08:48 | Nephrology Progress Note ---
Date of Service September 01, 2023 Assessment & Plan (1) Acute kidney injury: Plan: * SUSSY/CKD likely related to impaired renal perfusion associated w/ recurrent ventricular tachycardia requiring defibrillation x2 * Kidney function remains stable at this time (Cr 2.59) * Patient remains in a paced rhythm. Cardiology has provided oral amiodarone. Volume status and electrolyte balance are acceptable * 08/30/23 urinalysis was negative for protein, blood. Microscopy was negative for casts. UPCR 0.1 * Monitor PRP (2) Chronic kidney disease, stage 4 (severe): Plan: * CKD stage G4/A2 (advanced impairment). Baseline Cr 2.2 w/ EGFR 21 cc/min. 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 Quick was evaluated in her hospital room this morning. She denied angina or palpitations. She remains on O2 at 2 L/min NC. Ms. Quick reports that she has remained hospitalized for PT evaluation and to determine whether she will require home O2 Review of Systems Constitutional: no fever Eyes: no problem reported Ear, Nose, Mouth, Throat: no problem reported Respiratory: no cough and no dyspnea Cardiovascular: no chest pain Gastrointestinal: no abdominal pain, no nausea, no vomiting and no diarrhea/loose stools Genitourinary: no dysuria, no hematuria and no flank pain Integumentary: no problem reported Physical Exam Constitutional: not in distress Eyes: PERRL, conjunctivae normal, anicteric sclerae ENMT: external ear and nose normal, oropharynx normal Neck: trachea midline, no thyromegaly Respiratory: normal respiratory effort, lungs clear to auscultation Cardiovascular: RRR, no murmur, no edema Gastrointestinal (Abdomen): normal bowel sounds, soft, nontender, no hepatosplenomegaly Musculoskeletal: Extremities: no cyanosis and no clubbing Skin: no rashes, warm and dry Neurologic: Speech / Cognition: normal speech and normal cognition Results & Data Vital Signs (Past 12 Hours) Vital Signs Temp Pulse Pulse Resp BP BP Pulse Ox 09/01/23 07:41 36.5 C 61 19 125/72 98 04/22/24 03:39 36.4 C L 62 18 122/82 95 08/31/23 23:49 36.5 C 61 21 123/79 95 08/31/23 21:58 60 O2 Del Method O2 Flow Rate 09/01/23 07:41 Nasal Cannula 2 09/01/23 03:39 Nasal Cannula 1 08/31/23 23:49 Nasal Cannula 1 08/31/23 21:58 Laboratory Results Laboratory Results - last 24 hr 08/31/23 08/31/23 08/31/23 12:14 16:56 21:23 WBC RBC Hgb Hct MCV MCH MCHC RDW Std Deviation RDW Coeff of Chriss Plt Count MPV APTT PTT Ratio Sodium Potassium Chloride Carbon Dioxide Anion Gap BUN Creatinine Est Cr Clr Drug Dosing Est GFR ( Amer) Est GFR (Non-Af Amer) BUN/Creatinine Ratio Glucose POC Glucose 199 H 140 H 97 Calcium Magnesium 09/01/23 09/01/23 09/01/23 05:54 08:00 09:03 WBC 5.81 RBC 4.47 Hgb 12.9 Hct 40.1 MCV 89.7 MCH 28.9 MCHC 32.2 RDW Std Deviation 49.5 H RDW Coeff of Chriss 15.4 H Plt Count 130 MPV 10.3 APTT 29 PTT Ratio 1.0 Sodium 136 Potassium 4.3 Chloride 105 Carbon Dioxide 26 Anion Gap 5 BUN 48 H Creatinine 2.59 H Est Cr Clr Drug Dosing 14.1 Est GFR ( Amer) 19.6 Est GFR (Non-Af Amer) 16.9 BUN/Creatinine Ratio 18.5 Glucose 225 H POC Glucose 172 H Calcium 9.6 Magnesium 2.1 2.1 PG Care Time/CCT Total # of Minutes Spent Total Time Spent with Patient: Total time spent is greater than 50% in coordination of care (as documented) at patient's floor/unit and/or counseling patient: Coding Level of Care Code 28875 SUB INP/OBS CARE 3/50MIN Diagnoses Acute kidney injury N17.9 Chronic kidney disease, stage 4 (severe) N18.4 Essential hypertension I10 Hypertension type: essential hypertension Cardiomyopathy I42.9 (3) Hypertension Hypertension type: essential hypertension Qualified Code(s): I10 - Essential (primary) hypertension
[2023-09-01 09:23] LABS: Hematocrit (blood only) 40.1 % (37.0-47.0); Hemoglobin 12.9 g/dl (12.0-16.0); Mean Corpuscular Hemoglobin 28.9 pg (25.0-34.0); Mean Corpuscular Hgb Conc 32.2 g/dL (32.0-36.0); Mean Corpuscular Volume 89.7 fL (80.0-100.0); Mean Platelet Volume 10.3 fL (9.4-12.4); Platelet Count 130 K/uL (130-400); RDW Coefficient of Variation 15.4 % (11.5-14.5); RDW Standard Deviation 49.5 fL (36.4-46.3); Red Blood Count 4.47 M/uL (4.20-5.40); White Blood Count 5.81 K/ul (4.8-10.8)
[2023-09-01 09:44] LABS: BUN Creatinine Ratio 18.5 (10-20); Calcium 9.6 mg/dl (8.6-10.3); Creatinine Clr Calc Pharmacy 14.1 ml/min; Est GFR (African American) 19.6 ml/min; Est GFR (Non-African American) 16.9 ml/min; Magnesium 2.1 mg/dl (1.7-2.4); Potassium 4.3 mmol/L (3.5-5.1)
--- NOTE | 2023-09-01 13:06 | Discharge Summary ---
Date of Service September 01, 2023 Discharge Data Allergies Allergy/AdvReac Type Severity Reaction Status Date / Time aspirin Allergy Intermediate HIVES Verified 08/27/23 10:21 Iodinated Contrast Media Allergy Intermediate HIVES - Verified 08/27/23 10:21 MRI DYE levofloxacin Allergy Intermediate HIVES, Verified 08/27/23 10:21 VEIN IRRITATION W/IV LEVAQUIN erythromycin base Allergy Unknown UNKNOWN Verified 08/27/23 10:21 Consultations 08/29/23 03:01 ED Decision to Admit Stat 08/29/23 03:49 Consult Cardiology Routine 08/29/23 04:42 Consult Die Cutter Routine 08/30/23 10:12 Consult Nephrology Routine 08/31/23 11:59 [facility] CHF Program Referral Routine Hospital Course (1) Ventricular tachycardia: (2) Implantable cardioverter-defibrillator discharge: (3) Hyperlipidemia: (4) Hypertension: (5) CHF (congestive heart failure), NYHA class III: (6) Cardiomyopathy: (7) Coronary artery disease: (8) Biventricular ICD (implantable cardioverter-defibrillator) in place: (9) Chronic kidney disease, stage 4 (severe): (10) AF (paroxysmal atrial fibrillation): (11) Admitted to intensive care unit: Plan Ventricular tachycardia/status post implantable cardioverter defibrillator discharge/cardiomyopathy- Continue amiodarone bolus/drip per protocol Continue metoprolol with hold parameters Continue apixaban Admitted to the intensive care unit Now patient is in PCY. Placed initially on IV amiodarone, and transitioned to oral amiodarone eith overlap for 24 hours. Appreciate input from Cardio. complete echocardiogram [facility] laboratories. Patient requires PT/OT prior to discharge. 2 step completed on 08/30 showed that patient needs 2 liters on ambulation. CHF/NYHA stage III- Hold furosemide due to relative dehydration Acute kidney injury superimposed on CKD- Creatinine 2.33 upon admission, with base 1.99 Received 1 L normal saline from the ED Place on NSS at 60 mL/h x 500 mL Follow serial renal function panel and magnesium levels Diabetes mellitus Continue insulin glargine 10 units subcu at bedtime Placed on Accu-Cheks with NovoLog SSI Acute on chronic low back pain/lower extremity radiculopathy- Acetaminophen 650 mg by mouth every 6 hours as needed for mild pain or fever Hydrocodone 5/325 2 by mouth every 6 hours as needed for moderate Asthma- Continue albuterol nebulizer every 4 hours as needed Bladder spasms/incontinence- Continue mirabegron Hyperlipidemia- Continue atorvastatin Depression- Continue Lexapro Discharge Plan Discharge Items Patient Disposition: Home - Home Health Services Reason For Visit: VTACH Discharge Diagnosis: VTACH Activity: Resume your previous activity Non-emergency contact: Primary Care Provider Call non-emergency contact if: you have any medication questions Follow-up/Referrals: Aimee Crook CRNP [Primary Care Provider] - 09/09/23 10:30 am Enrique Duong MD [Physician] - 10/28/23 10:45 am Diet: Carb Consistent or DM2 Addtl Attending Provider Instructions: Plan is to discharge home on 400 mg of amiodarone twice a day for 2 weeks then reduce to 400 mg daily. Recommend followup with PCP in 1-2 weeks. Recommend followup with Cardiology within about 4-6 weeks Pending Studies at Discharge: No Stand-Alone Forms: My [facility] goBalto, Smoking Cessation Medications and DC Order Prescriptions: New amiodarone 200 mg Tablet See Rx Instructions .ROUTE .COMPLEX 30 Days Qty: 120 0RF Rx Instructions: Take 2 tablets twice a day by mouth with meals for 2 weeks. Then transition to 2 tablets once a day ongoing Continued (DME) lancing device Misc See Rx Instructions .ROUTE .MEDSUPPLY Qty: 1 0RF Rx Instructions: As directed (DME) lancets [Easy Touch Lancets] 30 gauge misc See Rx Instructions .ROUTE .MEDSUPPLY Qty: 200 5RF Rx Instructions: TEST TWICE DAILY; Dx.code- E11.69 escitalopram oxalate 10 mg tablet 10 mg PO QAM Qty: 90 3RF (DME) Accu-Chek Guide test strips Strip See Rx Instructions .ROUTE .MEDSUPPLY Qty: 100 9RF Rx Instructions: Check BID, Dx code E11.9 (DME) pen needle, diabetic [BD Ultra-Fine Mini Pen Needle] 31 gauge x 3/16" needle See Dose Instructions .ROUTE .MEDSUPPLY Qty: 100 5RF Rx Instructions: INJECT INSULIN ONCE DAILY; DX CODE E11.69 Myrbetriq 50 mg tablet extended release 24 hr 50 mg PO DAILY Qty: 90 3RF albuterol sulfate 90 mcg/actuation HFA aerosol inhaler 2 puff inhalation QID PRN (Reason: shortness of breath or wheezing) Qty: 8.5 3RF (DME) blood-glucose meter [Accu-Chek Guide Glucose Meter] Misc See Rx Instructions .ROUTE .MEDSUPPLY Qty: 1 0RF Rx Instructions: Test BID, Dx code E11.9 (DME) lancets [Accu-Chek Fastclix Lancet Drum] Misc See Rx Instructions .ROUTE .MEDSUPPLY Qty: 102 3RF Rx Instructions: Check BSG BID, Dx code E11.9 omeprazole 20 mg capsule,delayed release(DR/EC) 20 mg PO QAM (DME) walker with foldable sides and a tray See Rx Instructions .Route .MEDSUPPLY Qty: 1 0RF Rx Instructions: As directed metoprolol succinate 50 mg tablet extended release 24 hr 50 mg PO DAILY Qty: 90 3RF (DME) FreeStyle Efren 2 [place] Misc See Rx Instructions .Route Qty: 1 0RF Rx Instructions: check BS 2-3 x a day (DME) FreeStyle Efren 2 Sensor Kit See Rx Instructions .Route Qty: 1 5RF Rx Instructions: test 2-3 x a day Eliquis 2.5 mg tablet 2.5 mg PO BID Qty: 180 3RF insulin glargine [Lantus Solostar U-100 Insulin] 100 unit/mL (3 mL) insulin pen 10 unit SUBCUT HS Qty: 15 5RF hydrocodone-acetaminophen 5-325 mg tablet 2 tab PO Q6H PRN (Reason: pain) Qty: 20 0RF Rx Instructions: max of 6 per day cholecalciferol (vitamin D3) [Vitamin D3] 25 mcg (1,000 unit) Tablet 25 mcg PO QAM atorvastatin 40 mg tablet 40 mg PO .@2100 albuterol sulfate 2.5 mg /3 mL (0.083 %) solution for nebulization 2.5 mg continuous nebulization QID PRN (Reason: Shortness Of Breath Or Wheezing) Changed furosemide [Lasix] 40 mg tablet 40 mg PO Q2D Qty: 90 3RF Rx Instructions: 40 mg PO daily. Take additional dose daily for weight > 214 lbs or symptoms of fluid retention; Discontinued prednisone 10 mg tablet See Rx Instructions PO DAILY Qty: 30 0RF Rx Instructions: Take 4 tabs daily x 3 days, then take 3 tabs daily x 3 days, then take 2 tabs daily x 3 days, then take 1 tab daily x 3 days Discharge Orders: Discharge Order- CHF (Routine); Ordered 09/01/23 Ordered By: Arturo Sharpe Admission Data Admit Date/Time: 08/29/23 03:49 Attending Provider: Arturo Sharpe Admit Provider: Lewis Pettit Primary Care Provider: Aimee Crook Other Providers: Lewis Pettit; Pedro Li; Richy Matias; Jose Gutiérrez; Marley Zuniga; Livan Casanova; Citlaly Kang; Radha Grossman Coding Diagnoses Ventricular tachycardia I47.20 Implantable cardioverter-defibrillator discharge Z45.02 Hyperlipidemia, unspecified hyperlipidemia type E78.5 Hyperlipidemia type: unspecified Essential hypertension I10 Hypertension type: essential hypertension Acute on chronic systolic congestive heart failure, NYHA class 3 I50.23 Congestive heart failure type: systolic Congestive heart failure chronicity: acute on chronic Cardiomyopathy I42.9 Coronary artery disease involving [place] coronary artery of [place] heart without angina pectoris I25.10 Coronary Disease-Associated Artery/Lesion type: [place] artery [place] vs. transplanted heart: [place] heart Associated angina: without angina Biventricular ICD (implantable cardioverter-defibrillator) in place Z95.810 Chronic kidney disease, stage 4 (severe) N18.4 AF (paroxysmal atrial fibrillation) I48.0 Admitted to intensive care unit Z78.9
== END 2023-09-01 18:18 | disposition home health service (06) | DRG 309 ==
LOC: ED 01:29 → 1E 03:49 → SUATTDRO 03:49 → 1E 04:43 → 4W 08-30 18:34

== ENCOUNTER 2023-09-21 11:05 | Observation (INO) ==
--- NOTE | 2023-09-21 11:42 | Emergency Department Note ---
History of Present Illness General Chief complaint: Confusion Stated complaint: DIZZY,GAS, CONFUSION Time Seen by Provider: 09/21/23 11:28 History of Present Illness This is a 77-year-old female that presents to the emergency department accompanied by granddaughter in law as well as grandson with whom she resides with complaints of "confusion, dizziness, burping". The patient as well as grandson and granddaughter in law provide history. They note that this past Friday symptoms seemed to start which included confusion, dizziness and lightheadedness. This was reported by the in-home nurse that visited on Friday. Patient recently started on gabapentin 100 mg at night. Granddaughter in law notes that they reached out to the prescriber and was instructed to not increase the dose, rather continue the 100 mg dose at night. The patient continue to take this but the granddaughter in law did stop this medication this past Friday and since then despite stopping the medicine the symptoms continue to worsen. This includes hallucinating, sweating, confusion, dizziness and notes these episodes are brief and resolved spontaneously. Today she seemed to be dizzy and confused therefore prompting arrival but on my assessment family notes that she is back to baseline. They note there has been no speech trouble. No unilateral weakness. No falls in the past few days. They also note there has been increased eructation/burping and a lot of gas. They have been administering some Tums as well. Patient at the present time has no complaints but did feel dizzy just a few minutes prior to my evaluation described as a sensation that she is going to pass out. Patient has multiple comorbidities with recent ED visits and hospitalizations. Home Medications Medication Instructions Recorded Confirmed Type lancing device #1 ea 07/30/19 09/17/23 Rx cholecalciferol (vitamin D3) 25 25 mcg PO QAM 08/13/20 09/21/23 History mcg (1,000 unit) tablet (Vitamin D3) lancets 30 gauge (Easy Touch #200 ea 09/11/20 09/17/23 Rx Lancets) blood-glucose meter (Accu-Chek #1 ea 11/28/20 09/17/23 Rx Guide Glucose Meter) lancets (Accu-Chek Fastclix Lancet #102 ea 11/28/20 09/17/23 Rx Drum) omeprazole 20 mg capsule,delayed 20 mg PO QAM 03/05/21 09/21/23 History release escitalopram oxalate 10 mg tablet 10 mg PO QAM #90 tabs 09/04/22 09/21/23 Rx walker with foldable sides and a #1 ea 10/01/22 09/17/23 Rx tray blood sugar diagnostic (Accu-Chek #100 ea 01/21/23 09/17/23 Rx Guide test strips) flash glucose scanning reader #1 ea 04/14/23 09/17/23 Rx (FreeStyle Efren 2 [place]) flash glucose sensor (FreeStyle #1 ea 04/14/23 09/17/23 Rx Efren 2 Sensor kit) atorvastatin 40 mg tablet 40 mg PO .@2100 06/02/23 09/21/23 History mirabegron 50 mg tablet,extended 50 mg PO DAILY #90 tabs 08/04/23 09/21/23 Rx release 24 hr (Myrbetriq) metoprolol succinate 50 mg 50 mg PO DAILY #90 tabs 08/11/23 09/21/23 Rx tablet,extended release 24 hr albuterol sulfate 90 mcg/actuation 2 puff inhalation QID PRN 08/28/23 09/21/23 Rx aerosol inhaler shortness of breath or wheezing #8.5 grams albuterol sulfate 2.5 mg/3 mL 2.5 mg continuous nebulization QID 08/29/23 09/21/23 History (0.083 %) solution for nebulization PRN Shortness Of Breath Or Wheezing amiodarone 200 mg tablet See Rx Instructions .Route 08/31/23 09/21/23 Rx .COMPLEX 30 days #120 tabs furosemide 40 mg tablet (Lasix) 40 mg PO Q2D #90 tabs 08/31/23 09/21/23 Rx apixaban 2.5 mg tablet (Eliquis) 2.5 mg PO BID #180 tabs 09/04/23 09/21/23 Rx gabapentin 100 mg capsule 100 mg PO .COMPLEX #90 caps 09/09/23 09/21/23 Rx insulin glargine 100 unit/mL (3 10 unit (0.1 mL) subcut HS #15 mL 09/09/23 09/21/23 Rx mL) subcutaneous pen (Lantus Solostar U-100 Insulin) lidocaine 5 % topical patch 1 patch topical DAILY #30 ea 09/09/23 09/21/23 Rx pen needle, diabetic 31 gauge x #100 ea 09/09/23 09/17/23 Rx 3/16" (BD Ultra-Fine Mini Pen Needle) wheeled walker with skids on the #1 ea 09/12/23 09/17/23 Rx back hydrocodone 5 mg-acetaminophen 325 1 tab PO Q6H PRN pain #20 tabs 09/19/23 09/21/23 Rx mg tablet Allergies Allergy/AdvReac Type Severity Reaction Status Date / Time aspirin Allergy Intermediate HIVES Verified 09/17/23 13:44 Iodinated Contrast Media Allergy Intermediate HIVES - Verified 09/17/23 13:44 MRI DYE levofloxacin Allergy Intermediate HIVES, Verified 09/17/23 13:44 VEIN IRRITATION W/IV LEVAQUIN erythromycin base Allergy Unknown UNKNOWN Verified 09/17/23 13:44 Past Med/Surg History Medical History Chondromatosis of synovium of knee joint Radiculopathy, thoracolumbar region Facet arthropathy, lumbosacral Lumbosacral spondylosis COVID-19 On anticoagulant therapy Morbid obesity with BMI of 40.0-44.9, adult Presence of combination internal cardiac defibrillator (ICD) and pacemaker last checked 10/2020; hx vtach, afib. pt believes medtronic. pt unsure of initial placement date. Cardiomyopathy History of ventricular tachycardia Sleep apnea no device On home oxygen therapy 2 LPM qHS Poor historian Osteoarthritis History of kidney stones CKD (chronic kidney disease) follows with Dr. 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) Surgical History History of cardiac radiofrequency ablation History of esophagogastroduodenoscopy (EGD) History of colonoscopy History of carpal tunnel release of both wrists History of cystoscopy with stone extraction History of left cataract surgery History of x 3 History of cholecystectomy History of appendectomy Hx of CABG CABG x1 (PACHECO TO LAD for LV hypokinesis-not CAD-- Done at the time of AVR and aortic root graft) 2002 History of aortic aneurysm repair H/O aortic valve replacement 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 Family History Mother Diabetes Myocardial infarction Sister Diabetes Son Hypertension Denies family history of Ovarian cancer Prostate cancer Breast cancer Lung cancer Colorectal cancer Cancer Social History Smoking Status: Never smoker Second Hand Exposure: No; Do You Dip or Chew Tobacco: No; Hx Alcohol Use: No Hx Substance Use: No Preferred Language: Estonian Communication Ability: Effective Visual Impairment: Limited Hearing Ability: Normal 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 Required: No Beliefs That Will Affect Care: None marital status: / Current Living Situation: Family Current Living Situation Comment: Patient lives with grandchildren current occupational status: disabled How many Children do You have: 3 Other Information That Helps Us Care for You: No Feels Safe at Home: Yes Safety Concerns: Feels Safe At This Time Childhood Exposure to Second-Hand Smoke: No Diet: low salt and regular caffeine: Yes (soda) during the past year weight has: remained stable Dental Care, Regularly: No Physical Activity Frequency: Does not Exercise Seatbelt Use: sometimes Sunscreen Use: No Assistive Devices: Glasses, Walker and Wheelchair Review of Systems A total of 10 systems reviewed and were otherwise negative Physical Exam Vital Signs Vital Signs - 24 hr 09/21/23 11:05 09/21/23 11:18 09/21/23 11:18 Temperature 36.6 C Temperature Source Temporal Artery Scan Pulse Rate 69 Pulse Rate [Apical] 60 Respiratory Rate 18 20 Respiratory Effort / Characteristics Non-Labored Respiratory Depth Normal Blood Pressure 146/82 H Blood Pressure [Left Arm] 134/70 Blood Pressure Mean 103 Blood Pressure Mean [Left Arm] 91 Pulse Oximetry 95 89 L 92 Oxygen Delivery Method Room Air Nasal Cannula Oxygen Flow Rate 2 Sepsis Recent Fever Within 48 Hours No Sepsis New/Unexplained Change in Mental Status N/A Sepsis Action Taken by Nursing No Action Required 09/21/23 11:46 09/21/23 12:06 09/21/23 12:42 Temperature Temperature Source Pulse Rate 64 Pulse Rate [Apical] 75 Respiratory Rate 20 Respiratory Effort / Characteristics Non-Labored Respiratory Depth Normal Blood Pressure Blood Pressure [Left Arm] 150/96 H Blood Pressure Mean Blood Pressure Mean [Left Arm] 114 Pulse Oximetry 98 99 Oxygen Delivery Method Room Air Nasal Cannula Oxygen Flow Rate 4 Sepsis Recent Fever Within 48 Hours Sepsis New/Unexplained Change in Mental Status Sepsis Action Taken by Nursing VITAL SIGNS - Vital signs and nursing notes were reviewed. Stable and afebrile. GENERAL - 77-year-old female appearing her stated age who is in no acute distress. Communicates well with provider and answers questions appropriately. SKIN - Without rashes. HEAD - NC/AT. EYES - PERRL with EOMI bilaterally. Sclera anicteric. EARS - No deformities of external structures noted on gross examination bilaterally. No pain elicited with palpation of the tragus bilaterally. External auditory canals without discharge or otorrhea. Tympanic membranes pearly chin without retraction or bulging. No fluid or purulent material visualized behind the TM. Handle of malleus, umbo, cone of light, pars tensa/flaccid all easily visualized. NOSE - Midline and without cyanosis. No epistaxis or purulent drainage noted. Septum midline without deviation or septal hematoma noted. MOUTH/OROPHARYNX - Without perioral cyanosis. Buccal mucosa pink and moist and without leukoplakia. Tongue midline with equal elevation of palate bilaterally. No tonsillar hypertrophy, erythema, or exudates noted. Fair dentition noted. NECK - Neck with FROM. Supple to palpation. No lymphadenopathy noted. No nuchal rigidity. LUNGS - Chest wall symmetric without accessory muscle use, intercostals retractions, or central cyanosis. Normal vesicular breath sounds CTA B/L. No wheezes, rales, or rhonchi appreciated. CARDIAC - RRR ABDOMEN - Abdominal contour normal without pulsations or visible masses. BS normoactive all four quadrants. No tenderness, palpable masses, hepatosplenomegaly, or ascites noted. EXTREMITIES - No clubbing or peripheral cyanosis. +5/5 strength noted in UE/LE bilaterally. NEUROLOGIC - Cranial nerves II through XII grossly intact. Sensory intact to light touch throughout. PSYCH -alert, oriented and pleasant on exam Course Administered Medications Apixaban (Apixaban 2.5 Mg Tab) 2.5 mg PO BID [place] Stop: 10/21/23 20:59 Last Admin: 09/21/23 20:09 Dose: 2.5 mg Documented By: JONATHAN Atorvastatin Calcium (Atorvastatin 40 Mg Tab) 40 mg PO HS [place] Stop: 10/21/23 20:59 Last Admin: 09/21/23 20:09 Dose: 40 mg Documented By: JONATHAN Insulin Aspart (Insulin Aspart Per Unit Charge) 0 units SC ACHS [place] Stop: 10/21/23 16:29 Last Admin: 09/21/23 21:05 Dose: 1 units Documented By: JONATHAN Co-signed By: ROXI Admin: 09/21/23 18:39 Dose: 4 units Documented By: ROXI Co-signed By: GIOVANA Insulin Glargine (Lantus Per Unit Charge) 10 units SQ HS [place] Stop: 10/21/23 20:59 Last Admin: 09/21/23 21:05 Dose: 10 units Documented By: JONATHAN Co-signed By: ROXI Ondansetron HCl (Ondansetron Inj 2 Mg/Ml 2 Ml Vial) 4 mg IV Q6H PRN PRN Reason: Nausea Stop: 10/21/23 16:53 Last Admin: 09/21/23 23:40 Dose: 4 mg Documented By: JONATHAN Discontinued Medications Ceftriaxone Sodium (Rocephin) 2,000 mg in 50 mls @ 100 mls/hr IV NOW STA Stop: 09/21/23 13:22 Last Infusion: 09/21/23 14:01 Dose: Infused Documented By: Admin: 09/21/23 13:23 Dose: 100 mls/hr Documented By: DANIELITO Medical Decision Making Laboratory Data 09/21/23 11:43 09/21/23 11:43 Lab Results 09/21/23 09/21/23 09/21/23 Range/Units 11:43 11:45 12:11 WBC 9.83 (4.8-10.8) K/ul RBC 4.48 (4.20-5.40) M/uL Hgb 13.4 (12.0-16.0) g/dl Hct 40.7 (37.0-47.0) % MCV 90.8 (80.0-100.0) fL MCH 29.9 (25.0-34.0) pg MCHC 32.9 (32.0-36.0) g/dL RDW Std Deviation 53.8 H (36.4-46.3) fL RDW Coeff of Chriss 16.0 H (11.5-14.5) % Plt Count 191 (130-400) K/uL MPV 10.1 (9.4-12.4) fL Immature Gran % (Auto) 0.4 % Neut % (Auto) 86.3 % Lymph % (Auto) 7.3 % [place] % (Auto) 5.5 % Eos % (Auto) 0.3 % Baso % (Auto) 0.2 % Neut # (Auto) 8.48 H (1.40-6.50) K/uL Lymph # (Auto) 0.72 L (1.20-3.40) K/uL [place] # (Auto) 0.54 (0.11-0.59) K/uL Eos # (Auto) 0.03 (0.00-0.50) K/uL Baso # (Auto) 0.02 (0.00-0.20) K/uL Immature Gran # (Auto) 0.04 (0.01-0.20) K/uL PT 13.5 H (9.0-12.0) Seconds INR 1.3 H (0.9-1.1) APTT 25 (21-31) Seconds PTT Ratio 0.9 Sodium 138 (136-145) mmol/L Potassium 4.8 (3.5-5.1) mmol/L Chloride 105 (98-107) mmol/L Carbon Dioxide 26 (21-32) mmol/L Anion Gap 7 (3-11) BUN 44 H (6-23) mg/dl Creatinine 2.34 H (0.6-1.2) mg/dl Est Cr Clr Drug Dosing 21.3 ml/min Est GFR ( Amer) 22.2 ml/min Est GFR (Non-Af Amer) 19.2 ml/min BUN/Creatinine Ratio 18.8 (10-20) Glucose 277 H (70-99(Fasting)) mg/dl Lactate 1.7 (0.4-2.0) mmol/L Calcium 9.6 (8.6-10.3) mg/dl Magnesium 2.0 (1.7-2.4) mg/dl Total Bilirubin 1.2 H (0.2-1.0) mg/dl AST 28 (13-39) U/L ALT 35 (7-52) U/L Alkaline Phosphatase 118 H (34-104) U/L Troponin I High Sens 66.9 H* (0-14) pg/ml B-Natriuretic Peptide 1735 H (0-100) pg/ml Total Protein 6.3 (6.0-8.3) gm/dl Albumin 3.9 (3.4-5.0) gm/dl Globulin 2.4 L (2.5-4.0) gm/dl Albumin/Globulin Ratio 1.6 (0.9-2) Lipase 86 H (11-82) U/L Procalcitonin 0.04 (0-0.5) ng/ml TSH 9.613 H (0.300-4.500) uIu/ml Free T4 1.53 (0.61-1.60) ng/dl Urine Color Yellow Urine Appearance Clear (Clear) Urine pH 6.5 (4.5-7.5) Ur Specific [place] 1.009 (1.000-1.030) Urine Protein Trace H (Negative) Urine Glucose (UA) Negative (Negative) Urine Ketones Negative (Negative) Urine Blood Trace H (Negative) Urine Nitrite Negative (Negative) Urine Bilirubin Negative (Negative) Urine Urobilinogen Negative (Negative) Ur Leukocyte Esterase Negative (Negative) Urine WBC (Auto) 0-5 (0-5) /hpf Urine RBC (Auto) 6-10 H (0-2) /hpf U Hyaline Cast (Auto) 0-2 (0-2) /lpf U Epithel Cells (Auto) 3-5 H (0-2) /hpf Urine Bacteria (Auto) 3+ H (None Seen) Adenovirus (PCR) Not Detected (NotDetected) B. pertussis DNA (PCR) Not Detected (NotDetected) B.parapertussis DNA PCR Not Detected (NotDetected) C. pneumoniae DNA (PCR) Not Detected (NotDetected) Coronavirus OC43 (PCR) Not Detected (NotDetected) Coronavirus HKU1 (PCR) Not Detected (NotDetected) Coronavirus 229E (PCR) Not Detected (NotDetected) SARS-CoV-2 (PCR) Not Detected (NotDetected) Coronavirus NL63 (PCR) Not Detected (NotDetected) Human Metapneumovir PCR Not Detected (NotDetected) Influenza Type A (PCR) Not Detected (NotDetected) Influenza Type B (PCR) Not Detected (NotDetected) M. pneumoniae (PCR) Not Detected (NotDetected) Parainfluenza 1 (PCR) Not Detected (NotDetected) Parainfluenza 2 (PCR) Not Detected (NotDetected) Parainfluenza 3 (PCR) Not Detected (NotDetected) Parainfluenza 4 (PCR) Not Detected (NotDetected) RSV (PCR) Not Detected (NotDetected) Entero/Rhino (PCR) Not Detected (NotDetected) Imaging Data Radiologist's Impression: Abdomen/Pelvis CT 09/21/23 11:41 CT abd pelvis wo con CLINICAL HISTORY: eructation, dry heaves, confusion TECHNIQUE: Helical axial images of the abdomen and pelvis were obtained. Automated dose lowering techniques and/or adjustment according to patient size were utilized for this exam. This exam was performed without intravenous contrast. CT DOSE: 1833.96 mGy.cm COMPARISON: Comparison is made to CT abdomen pelvis 11/12/2020 FINDINGS: Lower chest: Bibasilar atelectasis versus scarring is seen. Cardiomegaly is seen. Liver: Unremarkable. No focal lesions are seen. Gallbladder and biliary tree: Patient is status post cholecystectomy. No intra- or extrahepatic biliary ductal dilation. Pancreas: Unremarkable, no focal lesions. Spleen: Unremarkable. Adrenals: Unremarkable. Kidneys and ureters: Renal cysts are seen. Bladder: Unremarkable. Reproductive organs: Intrauterine device is noted. Bowel: Diverticulosis is seen without evidence of diverticulitis. Lymph nodes Retroperitoneal: Unremarkable. Pelvic: Unremarkable. Mesenteric: Unremarkable. Peritoneum: Minimal peritoneal stranding is seen. Vessels: Atherosclerotic calcifications are seen. Abdominal wall: Unremarkable. Bones: Degenerative changes in the visualized spine. IMPRESSION: 1. No acute abnormalities. No evidence of bowel obstruction. 2. Postsurgical changes of cholecystitis. 3. Diverticulosis without diverticulitis. 4. Peritoneal stranding is nonspecific. 5. Additional findings as above. ACT 112: Negative or not required by law. Electronically signed by: Gaston Langston M.D. 09/21/2023 1:[address] 09/21/23 11:41 CT head/brain wo con CLINICAL HISTORY: altered mental status Technique: Contiguous axial CT images of the head were acquired from the base of the skull to the vertex without intravenous contrast administration. Images were viewed in brain, subdural and bone windows. Automated dose lowering techniques and/or adjustment according to patient size were utilized for this exam. Comparison: Comparison is made to CT head 08/13/2020 Findings: Areas of decreased attenuation are present in the periventricular and subcortical white matter bilaterally consistent with small vessel ischemic disease. Generalized cerebral atrophy with commensurate enlargement of the ventricles, sulci, and cisterns is also present. There is no acute intracranial hemorrhage or evidence of acute territorial infarction. No shift of the midline structures, mass effect, or extra-axial abnormalities are shown. Atherosclerotic calcifications are present in the intracranial segments of the internal carotid arteries. Encephalomalacia is in the left cerebellum. Imaged portions of the paranasal sinuses and mastoid air cells are clear. The orbits appear normal. There are no acute fractures of the calvaria or scalp swelling. Impression: No acute intracranial hemorrhage, no evidence of acute territorial infarction or other acute intracranial disease process. ACT 112: Negative or not required by law. Electronically signed by: Gaston Langston M.D. 09/21/2023 12:51 PM MDM Narrative Patient was seen and evaluated as above in room A11. Review was performed of triage nursing notes and vital signs. I did review pertinent previous visits and patient history. After obtaining a thorough history and physical examination the above work up was performed. Patient presents to us today for evaluation of dizziness, confusion, increased eructation. She is well-appearing and nontoxic on examination. Family at bedside as well as patient notes that she seems to be fine at the present time it is before I walked and had an episode of dizziness. This seems to be transient but often resolves on its own. She has no deficit on my examination. She has a benign abdominal exam. She is alert and oriented. GCS 15. Options of care were discussed with the patient as well as family at bedside. IV access was established. Labs were drawn. We will proceed with a chest x- ray, as well as CT scan of the head and abdomen/pelvis noting symptoms. We will avoid IV contrast presently as it appears that she has not received this here and there is a comment of allergy to iodine and contrast media. Although this may just be to the contrast media with MRIs, it is unclear therefore at the present time we will proceed by scanning without contrast initially. EKG was also performed and per my interpretation reveals ventricular paced rhythm at a rate of 62 bpm. QTc 521. This was compared the rhythm tracing August 30, 2023. Rhythm tracing is similar. At 12:42 PM I did receive a phone call from the [employer] cordage sales representative John Guzman. He indicated that there is about 7.6 years of battery life remaining on the device. He also noted that it appears that there is fluid on the lungs per device interpretation noting threshold has been reached and this has been present since August 29, 2023. Otherwise he notes the device is functioning well. No recent defibrillator firings. Labs reveal no leukocytosis or concerning anemia. Mild elevation of INR 1.3. CKD noted with creatinine of 2.34 and is similar to previous. Glucose 277. T. bili 1.2. Troponin 66.9. BNP interval elevation at 1735. Patient is now using oxygen more frequently at home per patient and family at home. She cannot lay flat. Procalcitonin within normal range. TSH mildly elevated at 9.61 with a normal free T4. Urinalysis reveals concern for possible UTI. Bio fire panel negative. CT scan of the head was negative. CT scan of the abdomen and pelvis does not show any acute abnormalities. Chest x-ray with cardiomegaly. At this time we will proceed with inpatient management. I did order ceftriaxone for the treatment of the UTI. The patient will also likely require treatment for the suspected fluid overload and UTI. Case discussed with the hospitalist service. Please refer to further documentation regarding her stay. Case was discussed with the attending physician. GCS: 15 In the evaluation and treatment of this patient the following differential diagnoses were entertained: UTI, pyelonephritis, meningitis, encephalitis, electrolyte disturbance, CVA/TIA, bowel obstruction, among others Impression & Plan AMS (altered mental status), Elevated brain natriuretic peptide (BNP) level, UTI (urinary tract infection), Elevated troponin Discharge Plan Visit Data Chief Complaint: Confusion Stated Complaint: DIZZY,GAS, CONFUSION ED Provider: Antonio Gupta ED Midlevel Provider: Jaleel Thornton Discharge Problem: AMS (altered mental status), Elevated brain natriuretic peptide (BNP) level, UTI (urinary tract infection), Elevated troponin Patient Disposition: Admitted As Inpatient Condition: Good Discharge Instructions Interventions: ED Discharge Assessment Last Done: 09/21/23 16:07
--- NOTE | 2023-09-21 12:05 | XRay Report ---
XR chest 1V not portable CLINICAL HISTORY: cough TECHNIQUE: Single frontal radiograph of the chest was obtained. Comparison: Comparison is made to chest radiograph 08/31/2023 FINDINGS: Pacemaker defibrillator is seen. Cardiomegaly is noted. The lungs are clear. No evidence of pleural e ffusion or pneumothorax. IMPRESSION: Cardiomegaly without evidence of pneumonia. ACT 112: Negative or not required by law. Electronically signed by: Gaston Langston M.D. 09/21/2023 12:03 PM
[2023-09-21 12:14] LABS: Basophils # (auto) 0.02 K/uL (0.00-0.20); Basophils % (auto) 0.2 %; Eosinophils # (auto) 0.03 K/uL (0.00-0.50); Eosinophils % (auto) 0.3 %; Hematocrit (blood only) 40.7 % (37.0-47.0); Hemoglobin 13.4 g/dl (12.0-16.0); Immature Granulocytes # (auto) 0.04 K/uL (0.01-0.20); Immature Granulocytes % (auto) 0.4 %; Lymphocytes # (auto) 0.72 K/uL (1.20-3.40); Lymphocytes % (auto) 7.3 %; Mean Corpuscular Hemoglobin 29.9 pg (25.0-34.0); Mean Corpuscular Hgb Conc 32.9 g/dL (32.0-36.0); Mean Corpuscular Volume 90.8 fL (80.0-100.0); Mean Platelet Volume 10.1 fL (9.4-12.4); Monocytes # (auto) 0.54 K/uL (0.11-0.59); Monocytes % (auto) 5.5 %; Neutrophils # (auto) 8.48 K/uL (1.40-6.50); Neutrophils % (auto) 86.3 %; Platelet Count 191 K/uL (130-400); RDW Standard Deviation 53.8 fL (36.4-46.3); Red Blood Count 4.48 M/uL (4.20-5.40); White Blood Count 9.83 K/ul (4.8-10.8)
[2023-09-21 12:22] LABS: INR 1.3 (0.9-1.1); Partial Thromboplastin Ratio 0.9; Partial Thromboplastin Time 25 Seconds (21-31); Prothrombin Time 13.5 Seconds (9.0-12.0)
[2023-09-21 12:32] LABS: Albumin Globulin Ratio 1.6 (0.9-2); Albumin Level 3.9 gm/dl (3.4-5.0); BUN Creatinine Ratio 18.8 (10-20); Bilirubin,Total 1.2 mg/dl (0.2-1.0); Calcium 9.6 mg/dl (8.6-10.3); Creatinine Clr Calc Pharmacy 21.3 ml/min; Est GFR (African American) 22.2 ml/min; Est GFR (Non-African American) 19.2 ml/min; Globulin 2.4 gm/dl (2.5-4.0); Potassium 4.8 mmol/L (3.5-5.1); Total Protein 6.3 gm/dl (6.0-8.3)
[2023-09-21 12:34] LABS: Appearance Urine Clear (Clear); Bacteria Urine Automated 3+ (None Seen); Bilirubin Urine Negative (Negative); Blood Urine Trace (Negative); Cast Urine Automated 0-2 /lpf (0-2); Color Urine Yellow; Glucose Urine UA Negative (Negative); Ketones Urine Negative (Negative); Leukocyte Esterase Urine Negative (Negative); Nitrite Urine Negative (Negative); Protein Urine Trace (Negative); Specific Gravity Urine 1.009 (1.000-1.030); Urobilinogen Urine Negative (Negative); WBC Urine Automated 0-5 /hpf (0-5); pH Urine 6.5 (4.5-7.5)
[2023-09-21 12:44] LABS: Troponin I High Sensitivity 66.9 pg/ml (0-14)
[2023-09-21 12:48] LABS: Thyroid Stimulating Hormone 9.613 uIu/ml (0.300-4.500)
--- NOTE | 2023-09-21 12:52 | CT Scan Report ---
CT head/brain wo con CLINICAL HISTORY: altered mental status Technique: Contiguous axial CT images of the head were acquired from the base of the skull to the teri dre without intravenous contrast administration. Images were viewed in brain, subdural and bone [facility] . Automated dose lowering techniques and/or adjustment according to patient size were utilized for this exam. Comparison: Comparison is made to CT head 08/13/2020 Findings: Areas of decreased attenuation are present in the periventricular and subcortical white matter bilate rally consistent with small vessel ischemic disease. Generalized cerebral atrophy with commensurate e nlargement of the ventricles, sulci, and cisterns is also present. There is no acute intracranial hem orrhage or evidence of acute territorial infarction. No shift of the midline structures, mass effect, or extra-axial abnormalities are shown. Atherosclerotic calcifications are present in the intracran ial segments of the internal carotid arteries. Encephalomalacia is in the left cerebellum. Imaged portions of the paranasal sinuses and mastoid air cells are clear. The orbits appear normal. There are no acute fractures of the calvaria or scalp swelling. Impression: No acute intracranial hemorrhage, no evidence of acute territorial infarction or other acute intracra nial disease process. ACT 112: Negative or not required by law. Electronically signed by: Gaston Langston M.D. 09/21/2023 12:51 PM
--- NOTE | 2023-09-21 12:54 | Emergency Department Note ---
ED Visit Note I was consulted by the Advanced Practice Provider, Jaleel Thornton PA-C. I personally made/approved the management plan and take responsibility for the patient management. I performed a substantive portion of the visit. This includes the aspects of: -History/Physical/Personally seeing the patient -MDM .
[2023-09-21 13:03] LABS: Adenovirus PCR Not Detected (NotDetected); Bordetella parapertussis PCR Not Detected (NotDetected); Bordetella pertussis PCR Not Detected (NotDetected); Chlamydia pneumoniae PCR Not Detected (NotDetected); Coronavirus 229E PCR Not Detected (NotDetected); Coronavirus CoV-2 (COVID19)PCR Not Detected (NotDetected); Coronavirus HKU1 PCR Not Detected (NotDetected); Coronavirus NL63 PCR Not Detected (NotDetected); Coronavirus OC43PCR Not Detected (NotDetected); Human Metapneumovirus PCR Not Detected (NotDetected); Influenza A PCR Not Detected (NotDetected); Influenza B PCR Not Detected (NotDetected); Mycoplasma pneumoniae PCR Not Detected (NotDetected); Parainfluenza Virus 1 PCR Not Detected (NotDetected); Parainfluenza Virus 2 PCR Not Detected (NotDetected); Parainfluenza Virus 3 PCR Not Detected (NotDetected); Parainfluenza Virus 4 PCR Not Detected (NotDetected); Respiratory Syncytial VirusPCR Not Detected (NotDetected); Rhinovirus/Enterovirus PCR Not Detected (NotDetected)
--- NOTE | 2023-09-21 13:14 | CT Scan Report ---
CT abd pelvis wo con CLINICAL HISTORY: eructation, dry heaves, confusion TECHNIQUE: Helical axial images of the abdomen and pelvis were obtained. Automated dose lowering tech niques and/or adjustment according to patient size were utilized for this exam. This exam was perfor med without intravenous contrast. CT DOSE: 1833.96 mGy.cm COMPARISON: Comparison is made to CT abdomen pelvis 11/12/2020 FINDINGS: Lower chest: Bibasilar atelectasis versus scarring is seen. Cardiomegaly is seen. Liver: Unremarkable. No focal lesions are seen. Gallbladder and biliary tree: Patient is status post cholecystectomy. No intra- or extrahepatic bilia ry ductal dilation. Pancreas: Unremarkable, no focal lesions. Spleen: Unremarkable. Adrenals: Unremarkable. Kidneys and ureters: Renal cysts are seen. Bladder: Unremarkable. Reproductive organs: Intrauterine device is noted. Bowel: Diverticulosis is seen without evidence of diverticulitis. Lymph nodes Retroperitoneal: Unremarkable. Pelvic: Unremarkable. Mesenteric: Unremarkable. Peritoneum: Minimal peritoneal stranding is seen. Vessels: Atherosclerotic calcifications are seen. Abdominal wall: Unremarkable. Bones: Degenerative changes in the visualized spine. IMPRESSION: 1. No acute abnormalities. No evidence of bowel obstruction. 2. Postsurgical changes of cholecystitis. 3. Diverticulosis without diverticulitis. 4. Peritoneal stranding is nonspecific. 5. Additional findings as above. ACT 112: Negative or not required by law. Electronically signed by: Gaston Langston M.D. 09/21/2023 1:13 PM
--- NOTE | 2023-09-21 13:22 | History & Physical Report ---
Date of Service September 21, 2023 Assessment & Plan (1) AMS (altered mental status): Plan: Altered mental status ?due to UTI. Patient has not had any urinary symptoms but does note that she voids multiple times throughout the day too many to count and this is not unus ual for her. Does not feel that she retains urine Differential includes hypoxia with fluid overload, gabapentin induced, and sundowning. Sundowning is possible as episodes tend to occur at nighttime and around sleep Patient was started on gabapentin prior to symptoms however this has been held since and she has not had improvement in her cognitive course per family; although appears near baseline at time of admission Chronic low back pain Gabapentin temporarily held for altered mental status (2) Ventricular tachycardia: Plan: History of V. tach, s/p pacemaker placement, on long-term anticoagulation, CHF NYHA stage III No dysrhythmia on device interrogation Continue cardiac meds Patient is with elevated BNP and troponin (3) CHF (congestive heart failure), NYHA class III: Plan: Patient was satting 100% on 4 L while in the room. Down titrated in the room and was still maintaining greater than 94% on 2 L. Will continue to titrate to follow to oxygen requirements. She is on 2 L as needed at home BNP is elevated and device indicates that may be underlying pulmonary edema. Chest x-ray appears relatively clear, and lungs are clear to auscultation at the bedside. She does not have significant leg edema at time bedside assessment Feel aggressive diuresis with her severe aortic stenosis and in absence of hypoxia is with risk outweighing the benefits while potential infection is being evaluated. Will defer additional diuresis on admission and follow clinical progression (4) Diabetes mellitus type 2 in obese: Plan: DM2 Lantus 10 units daily, SSI SSI Heart healthy, DM 2 diet Goal BSG [id number] (5) UTI (urinary tract infection): Plan: Urinary tract infection versus asymptomatic bacteriuria Continue Rocephin Follow sensitivities UA infected appearing relatively minimal epithelial cells No evidence of German on CT. No leukocytosis. She is not septic Plan Chronic stable issues: Asthma: Computer albuterol as needed no wheezing on admission Hyperlipidemia: Continue statin Depression: Continue Lexapro Bladder spasms: Continue mirabegron History of Present Illness Primary Care Provider: COOPER Cuevas Maurizio is a 77-year-old female with a history of severe aortic stenosis, cardiomyopathy, recent history of V. tach and unresponsive episode s/p pacemaker/defibrillator placement, back pain on gabapentin in the evening, who is on Lasix every other day for CHF who over the last week has been intermittently more confused than normalPer family in the last week she sometimes gets confused as staring spells, or does not answer questions appropriately. This waxes and wanes and has been intermittent. She has not had any seizures to their knowledge. She had been started on gabapentin 100 mg in the evening for back pain, this was discussed with her PCP and was not felt to be likely to be the cause of her symptoms and was continued but any dose up titration was not recommended. She has also had intermittent dizziness. She has not had syncope or presyncope. Over the last 5 days patient has had some sweating and hallucinations which are not normal for her. They report that they held her gabapentin since last the patient continues to be intermittently confused and this seems to happen generally at night around bedtime. Patient reports she pees multiple times throughout the day, but has not had a change in urinary frequency or dysuria. Does not feel she has any urinary retention. She reports she gets intermittent chills at baseline but does not feel these have changed. She notes her shortness of breath does seem to be worse over the last few weeks in general, has not had a cough. No chest pain. She reports her dizzy spells seem to occur when standing but sometimes come on randomly. No syncope. She has not had any falls since her prior hospitalization. She does feel her strength has diminished, home PT is not enough Allergies Allergy/AdvReac Type Severity Reaction Status Date / Time aspirin Allergy Intermediate HIVES Verified 09/17/23 13:44 Iodinated Contrast Media Allergy Intermediate HIVES - Verified 09/17/23 13:44 MRI DYE levofloxacin Allergy Intermediate HIVES, Verified 09/17/23 13:44 VEIN IRRITATION W/IV LEVAQUIN erythromycin base Allergy Unknown UNKNOWN Verified 09/17/23 13:44 Home Medications Medication Instructions Recorded Confirmed Type lancing device #1 ea 07/30/19 09/17/23 Rx cholecalciferol (vitamin D3) 25 25 mcg PO QAM 08/13/20 09/21/23 History mcg (1,000 unit) tablet (Vitamin D3) lancets 30 gauge (Easy Touch #200 ea 09/11/20 09/17/23 Rx Lancets) blood-glucose meter (Accu-Chek #1 ea 11/28/20 09/17/23 Rx Guide Glucose Meter) lancets (Accu-Chek Fastclix Lancet #102 ea 11/28/20 09/17/23 Rx Drum) omeprazole 20 mg capsule,delayed 20 mg PO QAM 03/05/21 09/21/23 History release escitalopram oxalate 10 mg tablet 10 mg PO QAM #90 tabs 09/04/22 09/21/23 Rx walker with foldable sides and a #1 ea 10/01/22 09/17/23 Rx tray blood sugar diagnostic (Accu-Chek #100 ea 01/21/23 09/17/23 Rx Guide test strips) flash glucose scanning reader #1 ea 04/14/23 09/17/23 Rx (FreeStyle Efren 2 [place]) flash glucose sensor (FreeStyle #1 ea 04/14/23 09/17/23 Rx Efren 2 Sensor kit) atorvastatin 40 mg tablet 40 mg PO .@2100 06/02/23 09/21/23 History mirabegron 50 mg tablet,extended 50 mg PO DAILY #90 tabs 08/04/23 09/21/23 Rx release 24 hr (Myrbetriq) metoprolol succinate 50 mg 50 mg PO DAILY #90 tabs 08/11/23 09/21/23 Rx tablet,extended release 24 hr albuterol sulfate 90 mcg/actuation 2 puff inhalation QID PRN 08/28/23 09/21/23 Rx aerosol inhaler shortness of breath or wheezing #8.5 grams albuterol sulfate 2.5 mg/3 mL 2.5 mg continuous nebulization QID 08/29/23 09/21/23 History (0.083 %) solution for nebulization PRN Shortness Of Breath Or Wheezing amiodarone 200 mg tablet See Rx Instructions .Route 08/31/23 09/21/23 Rx .COMPLEX 30 days #120 tabs furosemide 40 mg tablet (Lasix) 40 mg PO Q2D #90 tabs 08/31/23 09/21/23 Rx apixaban 2.5 mg tablet (Eliquis) 2.5 mg PO BID #180 tabs 09/04/23 09/21/23 Rx gabapentin 100 mg capsule 100 mg PO .COMPLEX #90 caps 09/09/23 09/21/23 Rx insulin glargine 100 unit/mL (3 10 unit (0.1 mL) subcut HS #15 mL 09/09/23 09/21/23 Rx mL) subcutaneous pen (Lantus Solostar U-100 Insulin) lidocaine 5 % topical patch 1 patch topical DAILY #30 ea 09/09/23 09/21/23 Rx pen needle, diabetic 31 gauge x #100 ea 09/09/23 09/17/23 Rx 3/16" (BD Ultra-Fine Mini Pen Needle) wheeled walker with skids on the #1 ea 09/12/23 09/17/23 Rx back hydrocodone 5 mg-acetaminophen 325 1 tab PO Q6H PRN pain #20 tabs 09/19/23 09/21/23 Rx mg tablet Past Med/Surg History Medical History Chondromatosis of synovium of knee joint Radiculopathy, thoracolumbar region Facet arthropathy, lumbosacral Lumbosacral spondylosis COVID-19 On anticoagulant therapy Morbid obesity with BMI of 40.0-44.9, adult Presence of combination internal cardiac defibrillator (ICD) and pacemaker last checked 10/2020; hx vtach, afib. pt believes medtronic. pt unsure of initial placement date. Cardiomyopathy History of ventricular tachycardia Sleep apnea no device On home oxygen therapy 2 LPM qHS Poor historian Osteoarthritis History of kidney stones CKD (chronic kidney disease) follows with Dr. 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) Surgical History History of cardiac radiofrequency ablation History of esophagogastroduodenoscopy (EGD) History of colonoscopy History of carpal tunnel release of both wrists History of cystoscopy with stone extraction History of left cataract surgery History of x 3 History of cholecystectomy History of appendectomy Hx of CABG CABG x1 (PACHECO TO LAD for LV hypokinesis-not CAD-- Done at the time of AVR and aortic root graft) 2002 History of aortic aneurysm repair H/O aortic valve replacement 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 Family History Mother Diabetes Myocardial infarction Sister Diabetes Son Hypertension Denies family history of Ovarian cancer Prostate cancer Breast cancer Lung cancer Colorectal cancer Cancer Social History Smoking Status: Never smoker Second Hand Exposure: No; Do You Dip or Chew Tobacco: No; Hx Alcohol Use: No Hx Substance Use: No Preferred Language: Danish Communication Ability: Effective Visual Impairment: Limited Hearing Ability: Normal Director Of Estate Required: No Beliefs That Will Affect Care: None marital status: / Current Living Situation: Family Current Living Situation Comment: Patient lives with grandchildren current occupational status: disabled How many Children do You have: 3 Feels Safe at Home: Yes Childhood Exposure to Second-Hand Smoke: No Diet: low salt and regular caffeine: Yes (soda) during the past year weight has: remained stable Dental Care, Regularly: No Physical Activity Frequency: Does not Exercise Seatbelt Use: sometimes Sunscreen Use: No Assistive Devices: Glasses, Walker and Wheelchair Physical Exam Physical Exam: General: A&Ox3. NAD. Cooperative. HEENT: Atraumatic, normocephalic. Vision and hearing grossly intact Pulm: CTAB A&P. -wheezes, -rales, -rhonchi. Symmetrical chest rise. No increased work of breathing. No respiratory distress. Cardiac: RRR,+sm. Radial pulses intact and symmetrical. No JVD Abdominal: Nontender, nondistended, soft. BS present. Extremities: Minimal ankle edema +L posterior knee intertrigo +small sacral pressure wound Results & Data Results & Data Vital Signs (Past 12 Hours) Vital Signs Temp Pulse Pulse Resp BP BP Pulse Ox 09/21/23 12:42 75 20 150/96 H 99 09/21/23 12:06 64 09/21/23 11:46 98 09/21/23 11:18 60 20 134/70 92 09/21/23 11:18 89 L 09/21/23 11:05 36.6 C 69 18 146/82 H 95 O2 Del Method O2 Flow Rate 09/21/23 12:42 Nasal Cannula 4 09/21/23 12:06 09/21/23 11:46 Room Air 09/21/23 11:18 Nasal Cannula 2 09/21/23 11:18 Room Air 09/21/23 11:05 PG Care Time/CCT Total # of Minutes Spent Total Time Spent with Patient: Total time spent is greater than 50% in coordination of care (as documented) at patient's floor/unit and/or counseling patient: Coding Level of Care Code 86881 INT INP/OBS CARE MIN Diagnoses AMS (altered mental status) R41.82 Ventricular tachycardia I47.20 Acute on chronic systolic congestive heart failure, NYHA class 3 I50.23 Congestive heart failure type: systolic Congestive heart failure chronicity: acute on chronic Diabetes mellitus type 2 in obese E11.69; E66.9 UTI (urinary tract infection) N39.0 (3) CHF (congestive heart failure), NYHA class III Congestive heart failure type: systolic Congestive heart failure chronicity: acute on chronic Qualified Code(s): I50.23 - Acute on chronic systolic (congestive) heart failure
[2023-09-21 13:23] LABS: T4 Free Thyroxine 1.53 ng/dl (0.61-1.60)
[2023-09-21] MEDS: cefTRIAXone SODIUM 2,000 MG/50 ML BAG IV STA (13:23)
[2023-09-21] MEDS ORDERED: DEXTROSE 50% 50 ML SYRINGE IV PRN (14:01)
[2023-09-21] MEDS ORDERED: GLUCOSE 10 TAB/TUBE PO PRN (14:01)
[2023-09-21] MEDS ORDERED: GLUCOSE 40% GEL 15 GM TUBE PO PRN (14:01)
[2023-09-21] MEDS ORDERED: CARBOHYDRATES FOR HYPOGLYCEMIA PO PRN (14:01)
[2023-09-21] MEDS ORDERED: GLUCAGON FOR INJ 1 MG VIAL SQ PRN (14:01)
[2023-09-21] MEDS ORDERED: ALBUTEROL 0.083% NEBU SOLN 3 ML VIAL INH PRN (16:54)
[2023-09-21] MEDS ORDERED: ACETAMINOPHEN 325 MG TAB PO PRN (16:54)
[2023-09-21] MEDS ORDERED: POLYETHYLENE (MIRALAX) 17 GM PACK PO PRN (16:54)
[2023-09-21] MEDS: INSULIN ASPART PER UNIT CHARGE SC SCH (18:39)
[2023-09-21] MEDS: ATORVASTATIN 40 MG TAB PO SCH (20:09)
[2023-09-21] MEDS: APIXABAN 2.5 MG TAB PO SCH (20:09)
[2023-09-21] MEDS: LANTUS PER UNIT CHARGE SQ SCH (21:05)
[2023-09-21] MEDS ORDERED: MICONAZOLE NITRATE POWDER 85 GM EXT PRN (22:18)
[2023-09-21] MEDS: ONDANSETRON INJ 2 MG/ML 2 ML VIAL IV PRN (23:40)
[2023-09-22 02:32] LABS: Basophils # (auto) 0.02 K/uL (0.00-0.20); Basophils % (auto) 0.2 %; Eosinophils # (auto) 0.03 K/uL (0.00-0.50); Eosinophils % (auto) 0.3 %; Hematocrit (blood only) 42.9 % (37.0-47.0); Hemoglobin 13.7 g/dl (12.0-16.0); Immature Granulocytes # (auto) 0.03 K/uL (0.01-0.20); Immature Granulocytes % (auto) 0.3 %; Lymphocytes # (auto) 0.74 K/uL (1.20-3.40); Lymphocytes % (auto) 8.5 %; Mean Corpuscular Hemoglobin 29.4 pg (25.0-34.0); Mean Corpuscular Hgb Conc 31.9 g/dL (32.0-36.0); Mean Corpuscular Volume 92.1 fL (80.0-100.0); Mean Platelet Volume 9.9 fL (9.4-12.4); Monocytes # (auto) 0.53 K/uL (0.11-0.59); Monocytes % (auto) 6.1 %; Neutrophils # (auto) 7.39 K/uL (1.40-6.50); Neutrophils % (auto) 84.6 %; Platelet Count 165 K/uL (130-400); RDW Coefficient of Variation 15.9 % (11.5-14.5); RDW Standard Deviation 53.8 fL (36.4-46.3); Red Blood Count 4.66 M/uL (4.20-5.40); White Blood Count 8.74 K/ul (4.8-10.8)
[2023-09-22 02:44] LABS: BUN Creatinine Ratio 16.9 (10-20); Calcium 9.5 mg/dl (8.6-10.3); Creatinine Clr Calc Pharmacy 16.9 ml/min; Est GFR (African American) 17.6 ml/min; Est GFR (Non-African American) 15.2 ml/min; Potassium 5.1 mmol/L (3.5-5.1)
[2023-09-22] MEDS: AMIODARONE 200 MG TAB PO SCH (07:43)
[2023-09-22] MEDS: CHOLECALCIFEROL 25 MCG (1000 UNITS) TAB PO SCH (07:43)
[2023-09-22] MEDS: FUROSEMIDE 40 MG TAB PO SCH (07:44)
[2023-09-22] MEDS: PANTOprazole 40 MG TAB PO SCH (07:44)
[2023-09-22] MEDS: ESCITALOPRAM OXALATE 10 MG TAB PO SCH (07:44)
[2023-09-22] MEDS: METOPROLOL SUCC 50MG EXT REL TAB PO SCH (07:44)
[2023-09-22] MEDS: VIBEGRON 75 MG TAB PO SCH (07:45)
--- NOTE | 2023-09-22 08:33 | Electrocardiogram Report ---
Test Reason : Blood Pressure : / mmHG Vent. Rate : 062 BPM Atrial Rate : 061 BPM P-R Int : 000 ms QRS Dur : 168 ms QT Int : 514 ms P-R-T Axes : 000 203 009 degrees QTc Int : 521 ms Ventricular-paced rhythm Abnormal ECG When compared with ECG of 30-AUG-2023 06:03, Vent. rate has increased BY 2 BPM Confirmed by Pedro Li ([id number]) on 09/22/2023 8:33:21 AM Referred By: REFERRED SELF Confirmed By:Jus Li
--- NOTE | 2023-09-22 08:36 | Electrocardiogram Report ---
Test Reason : Blood Pressure : / mmHG Vent. Rate : 060 BPM Atrial Rate : 052 BPM P-R Int : 000 ms QRS Dur : 172 ms QT Int : 524 ms P-R-T Axes : 000 078 001 degrees QTc Int : 524 ms Ventricular-paced rhythm Biventricular pacemaker detected Abnormal ECG When compared with ECG of 21-SEP-2023 11:18, (unconfirmed) Vent. rate has decreased BY 2 BPM Confirmed by Pedro Li ([id number] on 09/22/2023 8:36:42 AM Referred By: REFERRED SELF Confirmed By:Jus Li
--- NOTE | 2023-09-22 09:12 | Hospitalist Progress Note ---
Date of Service September 22, 2023 Assessment & Plan (1) AMS (altered mental status): Plan: Altered mental status ?due to UTI. Patient has not had any urinary symptoms but does note that she voids multiple times throughout the day too many to count and this is not unus ual for her. Does not feel that she retains urine Differential includes hypoxia with fluid overload, gabapentin induced, and sundowning. Sundowning is possible as episodes tend to occur at nighttime and around sleep Patient was started on gabapentin prior to symptoms however this has been held since and she has not had improvement in her cognitive course per family; although appears near baseline at time of admission This morning her mentation appears good, would like to have her start Physical Therapy/OT, get her out of bed and follow over next 24 hrs. Chronic low back pain Gabapentin temporarily held for altered mental status (2) Ventricular tachycardia: Plan: History of V. tach, s/p pacemaker placement, on long-term anticoagulation, CHF NYHA stage III No dysrhythmia on device interrogation Continue cardiac meds Patient is with elevated BNP (was 495 on 08/30, on admission 1735) and troponin (66.9-->67.0-->68.2-->59.8) (3) CHF (congestive heart failure), NYHA class III: Plan: Patient was satting 100% on 4 L while in the room. Down titrated in the room and was still maintaining greater than 94% on 2 L. Will continue to titrate to follow to oxygen requirements. She is on 2 L as needed at home BNP is elevated and device indicates that may be underlying pulmonary edema. Chest x-ray appears relatively clear, and lungs are clear to auscultation at the bedside. She does not have significant leg edema at time bedside assessment Feel aggressive diuresis with her severe aortic stenosis and in absence of hypoxia is with risk outweighing the benefits while potential infection is being evaluated. Will defer additional diuresis on admission and follow clinical progression. Would be cautious with pushing diuresis in lieu of CKD. If mentation does well over next 24 hrs would consider f/u with outpt cardio to try to optimize the balance between CKD and CHF (4) Diabetes mellitus type 2 in obese: Plan: DM2 Lantus 10 units daily as outpt, SSI SSI Heart healthy, DM 2 diet Goal BSG [id number], would be cautious with insulin with pt's CKD (5) UTI (urinary tract infection): Plan: Urinary tract infection versus asymptomatic bacteriuria Continue Rocephin Follow sensitivities UA infected appearing relatively minimal epithelial cells No evidence of German on CT. No leukocytosis. She is not septic Ur cx was negative, though since admission pt mentation appears to have improved ?associated with treatment of UTI. For now would continue Rocephin even in pt with neg cx Plan Chronic stable issues: Asthma: Computer albuterol as needed no wheezing on admission Hyperlipidemia: Continue statin Depression: Continue Lexapro Bladder spasms: Continue mirabegron Admission and Anticipated Discharge Date Admission Date: September 21, 2023 Subjective Currently alert and conversant. Denies significant urinary symptoms. Apparently mentation has been very variable, generally confusion most pronounced at night. Physical Exam Physical Exam: General: A&Ox3. NAD. Cooperative. HEENT: Atraumatic, normocephalic. Vision and hearing grossly intact Pulm: CTAB A&P. -wheezes, -rales, -rhonchi. Symmetrical chest rise. No increased work of breathing. No respiratory distress. Cardiac: RRR,+sm. Radial pulses intact and symmetrical. No JVD Abdominal: Nontender, nondistended, soft. BS present. Extremities: Minimal ankle edema +L posterior knee intertrigo +small sacral pressure wound Results & Data Results & Data Vital Signs (Past 12 Hours) Vital Signs Temp Pulse Pulse Resp BP BP Pulse Ox 09/22/23 08:43 09/22/23 07:28 36.6 C 60 21 143/89 H 94 09/22/23 03:15 36.5 C 62 18 136/87 94 09/21/23 23:23 36.6 C 61 18 127/82 97 09/21/23 21:57 71 O2 Del Method O2 Flow Rate 09/22/23 08:43 Nasal Cannula 1 09/22/23 07:28 Nasal Cannula 09/22/23 03:15 Nasal Cannula 1 09/21/23 23:23 Nasal Cannula 1 09/21/23 21:57 PG Care Time/CCT Total # of Minutes Spent Total Time Spent with Patient: Total time spent is greater than 50% in coordination of care (as documented) at patient's floor/unit and/or counseling patient: Coding Level of Care Code 04903 SUB INP/OBS CARE 2/35MIN Diagnoses Disorientation R41.0 Altered mental status type: disorientation Ventricular tachycardia I47.20 Acute on chronic systolic congestive heart failure, NYHA class 3 I50.23 Congestive heart failure type: systolic Congestive heart failure chronicity: acute on chronic Diabetes mellitus type 2 in obese E11.69; E66.9 Acute cystitis without hematuria N30.00 Urinary tract infection type: acute cystitis Hematuria presence: without hematuria (1) AMS (altered mental status) Altered mental status type: disorientation Qualified Code(s): R41.0 - Disorientation, unspecified (3) CHF (congestive heart failure), NYHA class III Congestive heart failure type: systolic Congestive heart failure chronicity: acute on chronic Qualified Code(s): I50.23 - Acute on chronic systolic (congestive) heart failure (5) UTI (urinary tract infection) Urinary tract infection type: acute cystitis Hematuria presence: without hematuria Qualified Code(s): N30.00 - Acute cystitis without hematuria
[2023-09-22] MEDS: cefTRIAXone SODIUM 2,000 MG/50 ML BAG IV SCH (14:08)
[2023-09-22] MEDS: ONDANSETRON INJ 2 MG/ML 2 ML VIAL IV PRN (22:40)
[2023-09-23] MEDS: HYDROCODONE/ACETAMOPHEN 5/325MG TAB PO PRN (01:36)
[2023-09-23 07:40] LABS: Basophils # (auto) 0.01 K/uL (0.00-0.20); Basophils % (auto) 0.1 %; Eosinophils # (auto) 0.02 K/uL (0.00-0.50); Eosinophils % (auto) 0.2 %; Hematocrit (blood only) 41.6 % (37.0-47.0); Hemoglobin 13.4 g/dl (12.0-16.0); Immature Granulocytes # (auto) 0.07 K/uL (0.01-0.20); Immature Granulocytes % (auto) 0.8 %; Lymphocytes # (auto) 0.79 K/uL (1.20-3.40); Mean Corpuscular Hemoglobin 29.5 pg (25.0-34.0); Mean Corpuscular Hgb Conc 32.2 g/dL (32.0-36.0); Mean Corpuscular Volume 91.6 fL (80.0-100.0); Monocytes # (auto) 0.45 K/uL (0.11-0.59); Monocytes % (auto) 5.1 %; Neutrophils # (auto) 7.47 K/uL (1.40-6.50); Neutrophils % (auto) 84.8 %; Platelet Count 166 K/uL (130-400); RDW Coefficient of Variation 15.6 % (11.5-14.5); RDW Standard Deviation 52.5 fL (36.4-46.3); Red Blood Count 4.54 M/uL (4.20-5.40); White Blood Count 8.81 K/ul (4.8-10.8)
[2023-09-23 08:27] LABS: Calcium 9.1 mg/dl (8.6-10.3); Potassium 5.2 mmol/L (3.5-5.1)
[2023-09-23 08:33] LABS: BUN Creatinine Ratio 20.4 (10-20); Creatinine Clr Calc Pharmacy 17.6 ml/min; Est GFR (African American) 18.3 ml/min; Est GFR (Non-African American) 15.8 ml/min
--- NOTE | 2023-09-23 13:59 | Discharge Summary ---
Date of Service September 23, 2023 Admission HPI Per Admitting Provider Muarizio is a 77-year-old female with a history of severe aortic stenosis, cardiomyopathy, recent history of V. tach and unresponsive episode s/p pacemaker/defibrillator placement, back pain on gabapentin in the evening, who is on Lasix every other day for CHF who over the last week has been intermittently more confused than normalPer family in the last week she sometimes gets confused as staring spells, or does not answer questions appropriately. This waxes and wanes and has been intermittent. She has not had any seizures to their knowledge. She had been started on gabapentin 100 mg in the evening for back pain, this was discussed with her PCP and was not felt to be likely to be the cause of her symptoms and was continued but any dose up titration was not recommended. She has also had intermittent dizziness. She has not had syncope or presyncope. Over the last 5 days patient has had some sweating and hallucinations which are not normal for her. They report that they held her gabapentin since last the patient continues to be intermittently confused and this seems to happen generally at night around bedtime. Patient reports she pees multiple times throughout the day, but has not had a change in urinary frequency or dysuria. Does not feel she has any urinary retention. She reports she gets intermittent chills at baseline but does not feel these have changed. She notes her shortness of breath does seem to be worse over the last few weeks in general, has not had a cough. No chest pain. She reports her dizzy spells seem to occur when standing but sometimes come on randomly. No syncope. She has not had any falls since her prior hospitalization. She does feel her strength has diminished, home PT is not enough Principal Diagnosis UTI, acute encephlaopathy Discharge Exam The patient is awake, alert and oriented 3, well developed and well nourished, normocephalic and atraumatic, lying in bed and in no acute distress. HEENT--PERRL, EOMI, mucous membranes and oropharynx mildly dry Neck--supple. No JVD. No bruits. Thyroid normal, trachea midline, no adenopathy. Heart--normal S1 and S2. No murmurs, rubs or gallops. Lungs--clear bilaterally, no respiratory distress, no accessory muscle use. Abdomen--normal bowel sounds and soft. Extremities--no cyanosis or clubbing. No edema. Dermatologic--normal skin turgor, normal color, no abnormal lymph nodes, no rash. Neurologic--cranial nerves II through XII grossly intact. Rheumatologic--normal range of motion. Psychiatric--normal affect. Discharge Data Allergies Allergy/AdvReac Type Severity Reaction Status Date / Time aspirin Allergy Intermediate HIVES Verified 09/17/23 13:44 Iodinated Contrast Media Allergy Intermediate HIVES - Verified 09/17/23 13:44 MRI DYE levofloxacin Allergy Intermediate HIVES, Verified 09/17/23 13:44 VEIN IRRITATION W/IV LEVAQUIN erythromycin base Allergy Unknown UNKNOWN Verified 09/17/23 13:44 Consultations 09/21/23 13:08 ED Decision to Admit Stat Ordered Studies 09/21/23 11:41 CT abd pelvis wo con Stat CT head/brain wo con Stat Hospital Course (1) AMS (altered mental status): Acute metabolic encephalopathy Now resolved Likely due to UTI and gabapentin Altered mental status ?due to UTI. Patient has not had any urinary symptoms but does note that she voids multiple times throughout the day too many to count and this is not unusual for her. Does not feel that she retains urine Differential includes hypoxia with fluid overload, gabapentin induced, and sundowning. Sundowning is possible as episodes tend to occur at nighttime and around sleep -Will hold gabapentin on discharge Chronic low back pain Gabapentin temporarily held for altered mental status (2) Ventricular tachycardia: History of V. tach, s/p pacemaker placement, on long-term anticoagulation, CHF NYHA stage III No dysrhythmia on device interrogation Continue cardiac meds Patient is with elevated BNP (was 495 on 08/30, on admission 1735) and troponin (66.9-->67.0-->68.2-->59.8) (3) CHF (congestive heart failure), NYHA class III: Patient was satting 100% on 4 L while in the room. Down titrated in the room and was still maintaining greater than 94% on 2 L. Will continue to titrate to follow to oxygen requirements. She is on 2 L as needed at home BNP is elevated and device indicates that may be underlying pulmonary edema. Chest x-ray appears relatively clear, and lungs are clear to auscultation at the bedside. She does not have significant leg edema at time bedside assessment Feel aggressive diuresis with her severe aortic stenosis and in absence of hypoxia is with risk outweighing the benefits while potential infection is being evaluated. Will defer additional diuresis on admission and follow clinical progression. Would be cautious with pushing diuresis in lieu of CKD. If mentation does well over next 24 hrs would consider f/u with outpt cardio to try to optimize the balance between CKD and CHF (4) Diabetes mellitus type 2 in obese: DM2 Lantus 10 units daily as outpt, SSI SSI Heart healthy, DM 2 diet Goal BSG [id number], would be cautious with insulin with pt's CKD (5) UTI (urinary tract infection): Urinary tract infection versus asymptomatic bacteriuria negative cultures for now d/c on PO cephalexin for 3 more days Plan d/c home Total Time Total Time Spent Total Time Spent (In Minutes): 35 Discharge Plan Discharge Items Patient Disposition: Home - Self-Care Reason For Visit: CONFUSION, ?UTI Discharge Diagnosis: acute encephalopathy, UTI Condition on Discharge: Good Activity: Resume your previous activity Non-emergency contact: Primary Care Provider Call non-emergency contact if: you have any medication questions Follow-up/Referrals: Aimee Crook CRNP [Primary Care Provider] - 09/30/23 10:30 am Diet: Regular Addtl Attending Provider Instructions: please follow up with your regular PCP Pending Studies at Discharge: No Stand-Alone Forms: My [employer], Smoking Cessation Medications and DC Order Prescriptions: New cephalexin 500 mg capsule 500 mg PO BID 3 Days Qty: 6 0RF Continued (DME) lancing device Misc See Rx Instructions .ROUTE .MEDSUPPLY Qty: 1 0RF Rx Instructions: As directed (DME) lancets [Easy Touch Lancets] 30 gauge misc See Rx Instructions .ROUTE .MEDSUPPLY Qty: 200 5RF Rx Instructions: TEST TWICE DAILY; Dx.code- E11.69 escitalopram oxalate 10 mg tablet 10 mg PO QAM Qty: 90 3RF (DME) Accu-Chek Guide test strips Strip See Rx Instructions .ROUTE .MEDSUPPLY Qty: 100 9RF Rx Instructions: Check BID, Dx code E11.9 Myrbetriq 50 mg tablet extended release 24 hr 50 mg PO DAILY Qty: 90 3RF albuterol sulfate 90 mcg/actuation HFA aerosol inhaler 2 puff inhalation QID PRN (Reason: shortness of breath or wheezing) Qty: 8.5 3RF Eliquis 2.5 mg tablet 2.5 mg PO BID Qty: 180 3RF (DME) wheeled walker with skids on the back See Rx Instructions .Route .MEDSUPPLY Qty: 1 0RF Rx Instructions: As directed hydrocodone-acetaminophen 5-325 mg tablet 1 tab PO Q6H PRN (Reason: pain) Qty: 20 0RF (DME) blood-glucose meter [Accu-Chek Guide Glucose Meter] Misc See Rx Instructions .ROUTE .MEDSUPPLY Qty: 1 0RF Rx Instructions: Test BID, Dx code E11.9 (DME) lancets [Accu-Chek Fastclix Lancet Drum] Misc See Rx Instructions .ROUTE .MEDSUPPLY Qty: 102 3RF Rx Instructions: Check BSG BID, Dx code E11.9 omeprazole 20 mg capsule,delayed release(DR/EC) 20 mg PO QAM (DME) walker with foldable sides and a tray See Rx Instructions .Route .MEDSUPPLY Qty: 1 0RF Rx Instructions: As directed metoprolol succinate 50 mg tablet extended release 24 hr 50 mg PO DAILY Qty: 90 3RF (DME) FreeStyle Efren 2 Garfield Misc See Rx Instructions .Route Qty: 1 0RF Rx Instructions: check BS 2-3 x a day (DME) FreeStyle Efren 2 Sensor Kit See Rx Instructions .Route Qty: 1 5RF Rx Instructions: test 2-3 x a day insulin glargine [Lantus Solostar U-100 Insulin] 100 unit/mL (3 mL) insulin pen 10 unit SUBCUT HS Qty: 15 5RF (DME) pen needle, diabetic [BD Ultra-Fine Mini Pen Needle] 31 gauge x 3/16" needle See Dose Instructions .ROUTE .MEDSUPPLY Qty: 100 5RF Rx Instructions: INJECT INSULIN ONCE DAILY; DX CODE E11.69 gabapentin 100 mg capsule 100 mg PO .COMPLEX Qty: 90 2RF Rx Instructions: 1 at bedtime for 5 days, then 1 twice a day lidocaine 5 % adhesive patch,medicated 1 patch topical DAILY Qty: 30 3RF Rx Instructions: leave on most painful area for up to 12 hrs cholecalciferol (vitamin D3) [Vitamin D3] 25 mcg (1,000 unit) Tablet 25 mcg PO QAM atorvastatin 40 mg tablet 40 mg PO .@2100 albuterol sulfate 2.5 mg /3 mL (0.083 %) solution for nebulization 2.5 mg continuous nebulization QID PRN (Reason: Shortness Of Breath Or Wheezing) amiodarone 200 mg Tablet See Rx Instructions .ROUTE .COMPLEX 30 Days Qty: 120 0RF Rx Instructions: Take 2 tablets twice a day by mouth with meals for 2 weeks. Then transition to 2 tablets once a day ongoing furosemide [Lasix] 40 mg tablet 40 mg PO Q2D Qty: 90 3RF Rx Instructions: 40 mg PO daily. Take additional dose daily for weight > 214 lbs or symptoms of fluid retention; Discharge Orders: Discharge Order (Routine); Ordered 09/23/23 Ordered By: Arianne Oreilly Admission Data Admit Date/Time: 09/21/23 14:00 Attending Provider: Arianne Oreilly Admit Provider: Salomón Goff Primary Care Provider: Aimee Crook Other Providers: Salomón Goff; [facility] Coding Level of Care Code 94973 INP/OBS DISCH >30 MIN Diagnoses Disorientation R41.0 Altered mental status type: disorientation Ventricular tachycardia I47.20 Acute on chronic systolic congestive heart failure, NYHA class 3 I50.23 Congestive heart failure type: systolic Congestive heart failure chronicity: acute on chronic Diabetes mellitus type 2 in obese E11.69; E66.9 Acute cystitis without hematuria N30.00 Urinary tract infection type: acute cystitis Hematuria presence: without hematuria Time Spent (min) 35
== END 2023-09-23 18:10 | disposition home health service (06) | DRG 689 ==
LOC: ED 11:05 → 2E 14:00 → SUATTDRO 14:00 → INTOOBSV 14:00 → 2E 16:07

== ENCOUNTER 2023-12-08 23:40 | Inpatient (IN) ==
--- NOTE | 2023-12-09 01:34 | Emergency Department Note ---
Impression & Plan Generalized weakness, Fall ED Provider Note NAME: NINOSKA LANGFORD AGE: 78 SEX: F : 1945 ARRIVES VIA: Ambulance INFORMANT: Patient, ED PROVIDER(S): Charlette Armando MD CHIEF COMPLAINT: Fall, weakness HPI: This is an 78-year-old female presenting for fall. Patient notes that she walks with a walker and has become increasingly weak over the past 1 month. She notes that anticipating a walker, her legs have given out her multiple times. She is unable to get up off the ground multiple times. Family is helping but they are also having difficulty with lifting her. Today she fell onto her buttocks. She notes pain to her tailbone and buttocks at this time. Otherwise she has pain in her right elbow. No nausea, vomiting or head trauma. ROS: See above HPI for pertinent positives & negatives. A total of 10 systems reviewed and were otherwise negative. PHYSICAL EXAMINATION: General: resting comfortably in no acute distress Head: Normocephalic and atraumatic Eyes: Normal inspection, extraocular muscles intact Ear, nose, throat: Normal external exam Neck: Normal range of motion Respiratory: lungs clear to auscultation bilaterally Cardiovascular: Regular rate/rhythm, no murmur GI: soft, nontender, no guarding or rebound Extremities: nontender, moves all extremities Neuro: The patient awake and alert, appropriately conversive, no focal deficits, symmetric faces Skin: Warm, dry, and intact MEDICAL DECISION MAKING: This is an 78-year-old female presenting after a fall. Patient has increasing weakness, inability to take care of herself at home despite living in family members. Reports hip and elbow pain. Will x-ray these. -X-ray as independent interpreted by me of the hip reveals no osseous fracture or dislocation -X-ray as independently interpreted by me reveals no osseous fracture or dislocation of the right elbow -Blood was reviewed showing no significant leukocytosis, slight anemia is noted. Otherwise electrolytes are within normal limits. Creatinine 2.44, around previous baseline. -Patient does states she feels unsafe to go home as she is unable to walk without assistance and 5 members are having trouble take care of her. Will admit for placement/PT Differential diagnosis: Fracture, dislocation, failure to thrive ER treatment provided: See below Diagnostics interpreted by me: ECG: None Cardiac Monitoring: An order was placed for continuous cardiac monitoring. The monitor shows a rate of 60 with sinus rhythm. Laboratory studies: As stated above and show below. Imaging studies: See below. Past Med/Surg History Problem List (Updated 12/09/23 @ 06:46 by Charlette Armando MD) Fall (Acute) Frequent falls Generalized weakness Elevated troponin (Acute) UTI (urinary tract infection) (Acute) AMS (altered mental status) (Acute) Chondromatosis of synovium of knee joint Radiculopathy, thoracolumbar region Facet arthropathy, lumbosacral Lumbosacral spondylosis Chronic back pain greater than 3 months duration Aortic stenosis Implantable cardioverter-defibrillator discharge Elevated brain natriuretic peptide (BNP) level (Acute) Hypoxia (Acute) Shortness of breath (Acute) Dysrhythmia (Acute) Ventricular tachycardia (Acute) Lumbar radiculopathy, right (Acute) Degenerative joint disease of knee, right (Acute) Risk for falls Gait disturbance Cervicalgia Neurodermatitis Incontinence of urine in female Rash of unknown cause Vitamin D deficiency (Chronic) per Dr Gutiérrez, hold vit D supplement Hypertension (Chronic) Hyperlipidemia (Chronic 11/23/10) Depression (Chronic) Coronary artery disease (Chronic 11/23/10) Cardiomyopathy (Chronic) CHF (congestive heart failure), NYHA class III (Chronic) EF 20-25% Biventricular ICD (implantable cardioverter-defibrillator) in place (Chronic) Asthma (Chronic) Eczema (Acute) Chronic kidney disease, stage 4 (severe) (Chronic) Severe obesity Cognitive changes Hematuria Current use of half-way anticoagulation (Acute) Diabetes mellitus type 2 in obese IUD (intrauterine device) in place Mirena placed 12/2019 Fungal dermatitis Generalized weakness (Acute) Obstructive sleep apnea AF (paroxysmal atrial fibrillation) (Chronic) follows with [facility] History of implantable cardioverter-defibrillator (ICD) placement COPD (chronic obstructive pulmonary disease) Esophageal dysmotility Urge incontinence of urine (Chronic) Medical History Admitted to intensive care unit COVID-19 On anticoagulant therapy Presence of combination internal cardiac defibrillator (ICD) and pacemaker History of ventricular tachycardia On home oxygen therapy Poor historian Osteoarthritis History of kidney stones GERD (gastroesophageal reflux disease) Colitis Ileitis Endometrial cancer, grade I CVA (cerebral vascular accident) (11/23/10) 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) Surgical History History of cardiac radiofrequency ablation History of esophagogastroduodenoscopy (EGD) History of colonoscopy History of carpal tunnel release of both wrists History of cystoscopy History of left cataract surgery History of History of cholecystectomy History of appendectomy Hx of CABG History of aortic aneurysm repair H/O aortic valve replacement Family History Mother Diabetes Myocardial infarction Sister Diabetes Son Hypertension Denies family history of Ovarian cancer Prostate cancer Breast cancer Lung cancer Colorectal cancer Cancer Social History Smoking Status: Never smoker Second Hand Exposure: No; Do You Dip or Chew Tobacco: No; Hx Alcohol Use: No Hx Substance Use: No Preferred Language: [place]i Communication Ability: Effective Visual Impairment: Limited Hearing Ability: Normal 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 Beliefs That Will Affect Care: None marital status: / Current Living Situation: Family Current Living Situation Comment: Patient lives with grandchildren current occupational status: disabled How many Children do You have: 3 Feels Safe at Home: Yes Childhood Exposure to Second-Hand Smoke: No Diet: low salt and regular caffeine: Yes (soda) during the past year weight has: remained stable Dental Care, Regularly: No Physical Activity Frequency: Does not Exercise Seatbelt Use: sometimes Sunscreen Use: No Assistive Devices: Walker and Wheelchair Allergies Allergies Allergy/AdvReac Type Severity Reaction Status Date / Time aspirin Allergy Intermediate HIVES Verified 12/09/23 01:42 Iodinated Contrast Media Allergy Intermediate HIVES - Verified 12/09/23 01:42 MRI DYE levofloxacin Allergy Intermediate HIVES, Verified 12/09/23 01:42 VEIN IRRITATION W/IV LEVAQUIN erythromycin base Allergy Unknown CAN'T Verified 12/09/23 01:42 REMEMBER gabapentin AdvReac Intermediate Confusion Verified 12/09/23 01:42 Home Meds Home Medications Medication Instructions Recorded Confirmed cholecalciferol (vitamin D3) 25 25 mcg PO QAM 08/13/20 12/09/23 mcg (1,000 unit) tablet (Vitamin D3) omeprazole 20 mg capsule,delayed 20 mg PO QAM 10/25/21 07/30/24 release albuterol sulfate 2.5 mg/3 mL 2.5 mg continuous nebulization QID 08/29/23 12/09/23 (0.083 %) solution for nebulization PRN Shortness Of Breath Or Wheezing lidocaine 5 % topical patch 1 patch topical DAILY PRN Pain 12/09/23 12/09/23 Previous Rx's Medication Instructions Recorded lancing device #1 ea 07/30/19 lancets 30 gauge (Easy Touch #200 ea 09/11/20 Lancets) blood-glucose meter (Accu-Chek #1 ea 11/28/20 Guide Glucose Meter) lancets (Accu-Chek Fastclix Lancet #102 ea 11/28/20 Drum) walker with foldable sides and a #1 ea 10/01/22 tray flash glucose scanning reader #1 ea 04/14/23 (FreeStyle Efren 2 [place]) flash glucose sensor (FreeStyle #1 ea 04/14/23 Efren 2 Sensor kit) mirabegron 50 mg tablet,extended 50 mg PO DAILY #90 tabs 08/04/23 release 24 hr (Myrbetriq) metoprolol succinate 50 mg 50 mg PO DAILY #90 tabs 08/11/23 tablet,extended release 24 hr albuterol sulfate 90 mcg/actuation 2 puff inhalation QID PRN 08/28/23 aerosol inhaler shortness of breath or wheezing #8.5 grams apixaban 2.5 mg tablet (Eliquis) 2.5 mg PO BID #180 tabs 09/04/23 pen needle, diabetic 31 gauge x #100 ea 09/09/23 3/16" (BD Ultra-Fine Mini Pen Needle) wheeled walker with skids on the #1 ea 09/12/23 back hydrocodone 5 mg-acetaminophen 325 1 tab PO Q6H PRN pain #20 tabs 09/19/23 mg tablet blood-glucose meter,continuous #1 ea 10/01/23 (FreeStyle Efren 3 [place]) blood-glucose sensor (FreeStyle #1 ea 10/01/23 Efren 3 Sensor device) atorvastatin 40 mg tablet 40 mg PO QPM #30 tabs 10/16/23 blood sugar diagnostic (Accu-Chek #100 ea 10/28/23 Guide test strips) insulin glargine 100 unit/mL (3 22 unit (0.22 mL) subcut HS #15 mL 10/28/23 mL) subcutaneous pen (Lantus Solostar U-100 Insulin) escitalopram oxalate 10 mg tablet 10 mg PO QAM #90 tabs 11/03/23 furosemide 40 mg tablet (Lasix) 40 mg PO Q2D #90 tabs 11/03/23 amiodarone 400 mg tablet 400 mg PO DAILY #90 tabs 11/04/23 blood sugar diagnostic (Contour #100 ea 11/05/23 Next Test Strips) Results & Data (ED) Vital Signs Vital Signs - 24 hr 12/08/23 23:50 12/08/23 23:55 12/08/23 23:58 Temperature 36.8 C Temperature Source Oral Pulse Rate 61 60 Pulse Rate [Right Radial] 60 Pulse Rhythm Regular Pulse Rhythm [Right Radial] Regular Pulse Strength Normal Pulse Strength [Right Radial] Normal Respiratory Rate 18 18 Respiratory Effort / Characteristics Non-Labored Spontaneous Non-Labored Spontaneous Respiratory Depth Normal Normal Respiratory Pattern Regular Regular Blood Pressure 120/74 Blood Pressure [Right Arm] 120/74 Blood Pressure Mean 89 Blood Pressure Mean [Right Arm] 89 Blood Pressure Position [Right Arm] Pulse Oximetry 97 97 Oxygen Delivery Method Nasal Cannula Nasal Cannula Oxygen Flow Rate 2 2 Sepsis Recent Fever Within 48 Hours No Sepsis New/Unexplained Change in Mental Status No Sepsis Action Taken by Nursing No Action Required 12/09/23 01:40 12/09/23 03:30 12/09/23 03:44 Temperature Temperature Source Pulse Rate 60 Pulse Rate [Right Radial] 60 60 Pulse Rhythm Pulse Rhythm [Right Radial] Regular Regular Pulse Strength Pulse Strength [Right Radial] Normal Normal Respiratory Rate 16 16 Respiratory Effort / Characteristics Non-Labored Spontaneous Non-Labored Spontaneous Respiratory Depth Normal Normal Respiratory Pattern Regular Regular Blood Pressure Blood Pressure [Right Arm] 147/86 H 148/87 H Blood Pressure Mean Blood Pressure Mean [Right Arm] 106 107 Blood Pressure Position [Right Arm] Lying Pulse Oximetry 95 96 Oxygen Delivery Method Nasal Cannula Nasal Cannula Oxygen Flow Rate 2 2 Sepsis Recent Fever Within 48 Hours Sepsis New/Unexplained Change in Mental Status Sepsis Action Taken by Nursing Laboratory Data 12/09/23 04:44 12/09/23 02:22 Lab Results 12/09/23 12/09/23 Range/Units 01:45 02:22 WBC Cancelled RBC Cancelled Hgb Cancelled Hct Cancelled MCV Cancelled MCH Cancelled MCHC Cancelled RDW Std Deviation Cancelled RDW Coeff of Chriss Cancelled Plt Count Cancelled MPV Cancelled Immature Gran % (Auto) Cancelled Neut % (Auto) Cancelled Lymph % (Auto) Cancelled [place] % (Auto) Cancelled Eos % (Auto) Cancelled Baso % (Auto) Cancelled Neut # (Auto) Cancelled Lymph # (Auto) Cancelled [place] # (Auto) Cancelled Eos # (Auto) Cancelled Baso # (Auto) Cancelled Immature Gran # (Auto) Cancelled Absolute Nucleated RBC Cancelled Nucleated RBC % (auto) Cancelled Neutrophils % (Manual) Cancelled Band Neutrophils % Cancelled Lymphocytes % (Manual) Cancelled Prolymphocyte % Cancelled Reactive Lymphs % (Man) Cancelled Monocytes % (Manual) Cancelled Eosinophils % (Manual) Cancelled Basophils % (Manual) Cancelled Metamyelocytes % (Man) Cancelled Myelocytes % (Man) Cancelled Promyelocytes % (Man) Cancelled Blast Cells % (Manual) Cancelled Plasma Cell % (Manual) Cancelled Other Cells % Cancelled Nucleated RBC % Cancelled Neutrophils # (Manual) Cancelled Band Neutrophils # Cancelled Total Absolute Neuts Cancelled Lymphocytes # (Manual) Cancelled Prolymphocyte # Cancelled Reactive Lymphs # Cancelled Total Abs Lymphocytes Cancelled Monocytes # (Manual) Cancelled Eosinophils # (Manual) Cancelled Basophils # (Manual) Cancelled Metamyelocytes # (Man) Cancelled Myelocytes # (Manual) Cancelled Promyelocytes # (Man) Cancelled Blast Cells # (Man) Cancelled Plasma Cell # (Manual) Cancelled Other Cells # Cancelled Nucleated RBCs # (Man) Cancelled Hypersegmented Neuts Cancelled Hyposegmented Neuts Cancelled Hypogranular Neuts Cancelled Large Granular Lymphs Cancelled # Lrg Granular Lymphs Cancelled Hairy Cells Cancelled Smudge Cells Cancelled Toxic Granulation Cancelled Toxic Vacuolation Cancelled Dohle Bodies Cancelled Shantal Rods Cancelled Platelet Estimate Cancelled Hypogranular Platelets Cancelled Giant Platelets Cancelled Platelet Satelliting Cancelled RBC Morphology Cancelled Polychromasia Cancelled Hypochromasia Cancelled Poikilocytosis Cancelled Basophilic Stippling Cancelled Anisocytosis Cancelled Microcytosis Cancelled Macrocytosis Cancelled Spherocytes Cancelled Pappenheimer Bodies Cancelled Sickle Cells Cancelled Target Cells Cancelled Tear Drop Cells Cancelled Ovalocytes Cancelled Stomatocytes Cancelled [place] Bodies Cancelled Echinocytes Cancelled Acanthocytes (Spur) Cancelled Rouleaux Cancelled RBC Agglutinates Cancelled Schistocytes Cancelled [place] Cell Cancelled Sodium 142 (136-145) mmol/L Potassium 3.9 (3.5-5.1) mmol/L Chloride 111 H (98-107) mmol/L Carbon Dioxide 26 (21-32) mmol/L Anion Gap 5 (3-11) BUN 28 H (6-23) mg/dl Creatinine 2.44 H (0.6-1.2) mg/dl Est Cr Clr Drug Dosing 18.6 ml/min Est GFR ( Amer) 21.0 ml/min Est GFR (Non-Af Amer) 18.1 ml/min BUN/Creatinine Ratio 11.5 (10-20) Glucose 135 H (70-99(Fasting)) mg/dl Calcium 9.1 (8.6-10.3) mg/dl Urine Color Dark Yellow Urine Appearance Clear (Clear) Urine pH 5.5 (4.5-7.5) Ur Specific [place] 1.023 (1.000-1.030) Urine Protein 1+ H (Negative) Urine Glucose (UA) Negative (Negative) Urine Ketones Trace H (Negative) Urine Blood Negative (Negative) Urine Nitrite Negative (Negative) Urine Bilirubin 1+ H (Negative) Urine Urobilinogen Negative (Negative) Ur Leukocyte Esterase Trace H (Negative) Urine WBC (Auto) 6-10 H (0-5) /hpf Urine RBC (Auto) 6-10 H (0-2) /hpf U Hyaline Cast (Auto) 0-2 (0-2) /lpf U Epithel Cells (Auto) 0-2 (0-2) /hpf Urine Bacteria (Auto) None Seen (None Seen) Calcium Oxalate Crystal Present A (None Prsent) Blood Parasites ID Cancelled Administered Medications Hydrocodone Bitart/Acetaminophen (Hydrocodone/Acetamophen 5/325mg Tab) 1 tab PO Q6H PRN PRN Reason: Moderate Pain (Scale 4, 5, 6) Stop: 12/23/23 04:04 Last Admin: 12/09/23 06:25 Dose: 1 tab Documented By: HNT Ceftriaxone Sodium (Rocephin) 2,000 mg in 50 mls @ 100 mls/hr IV Q24H [place] Stop: 12/19/23 05:59 Last Admin: 12/09/23 06:23 Dose: 100 mls/hr Documented By: HNT Discharge Plan Visit Data Chief Complaint: Weakness Stated Complaint: WEAKNESS, FALL, TAILBONE PAIN ED Provider: Charlette Armando Discharge Problem: Generalized weakness, Fall Patient Disposition: Admitted As Inpatient Discharge Instructions Interventions: ED Discharge Assessment Last Done: 12/09/23 04:06
[2023-12-09 02:20] LABS: Appearance Urine Clear (Clear); Bacteria Urine Automated None Seen (None Seen); Bilirubin Urine 1+ (Negative); Blood Urine Negative (Negative); Calcium Oxalate Crystals Urine Present (None Prsent); Cast Urine Automated 0-2 /lpf (0-2); Color Urine Dark Yellow; Epithelial Cell Urine Auto 0-2 /hpf (0-2); Glucose Urine UA Negative (Negative); Ketones Urine Trace (Negative); Leukocyte Esterase Urine Trace (Negative); Nitrite Urine Negative (Negative); Protein Urine 1+ (Negative); Specific Gravity Urine 1.023 (1.000-1.030); Urobilinogen Urine Negative (Negative); pH Urine 5.5 (4.5-7.5)
[2023-12-09 03:01] LABS: BUN Creatinine Ratio 11.5 (10-20); Calcium 9.1 mg/dl (8.6-10.3); Creatinine Clr Calc Pharmacy 18.6 ml/min; Est GFR (Non-African American) 18.1 ml/min; Potassium 3.9 mmol/L (3.5-5.1)
--- NOTE | 2023-12-09 03:46 | History & Physical Report ---
Date of Service December 09, 2023 Assessment & Plan (1) Generalized weakness: (2) Frequent falls: (3) UTI (urinary tract infection): (4) Radiculopathy, thoracolumbar region: (5) Implantable cardioverter-defibrillator discharge: (6) Ventricular tachycardia: (7) Gait disturbance: (8) Hypertension: (9) Coronary artery disease: (10) Cardiomyopathy: (11) Biventricular ICD (implantable cardioverter-defibrillator) in place: (12) Chronic kidney disease, stage 4 (severe): (13) Diabetes mellitus type 2 in obese: Plan Multiple recent falls/progressive generalized weakness/ambulatory dysfunction- Likely progression of generalized debilitation Consult PT/OT Will likely need inpatient rehab versus ECF Address potential contributing factor of chronic urinary tract infection CAD/cardiomyopathy/CHF/biventricular ICD/ventricular tachycardiaCISARA Gonzalez- Continue usual medications: Amiodarone, apixaban, atorvastatin, furosemide, metoprolol succinate Urinary tract infection- Follow urine culture and sensitivity Empiric ceftriaxone COPD- Continue usual inhalers Diabetes mellitus- Reduce insulin glargine from 22 to 16 units subcu at bedtime Placed on Accu-Cheks with NovoLog SSI History of Present Illness Chief Complaint: The patient presents to the emergency department with increasing generalized weakness over the past month, with more recent multiple falls, and developed pain in her tailbone and buttock unchanged over the past month. Patient's family is having more difficulty taking care of her at home, and plan is to have her assessed for PT/OT and rehab Primary Care Provider: COOPER Cuevas The patient is an 78-year-old female with a past medical history including urinary tract infection, thoracolumbar radiculopathy, lumbosacral facet arthropathy, chronic back pain syndrome, AICD with history of ventricular tachycardia, paroxysmal atrial fibrillation, CAD, cardiomyopathy, CHF NYHA class III, CKD stage IV, diabetes mellitus, IUD in place, COPD, esophageal dysmotility and urinary urge incontinence. She presents to the emergency department as noted above. Primary issue is that of progressive generalized weakness, and inability to ambulate without falling and to care for self at home. She does live with her family, who was having more difficulty taking care of her at this time Allergies Allergy/AdvReac Type Severity Reaction Status Date / Time aspirin Allergy Intermediate HIVES Verified 12/09/23 01:42 Iodinated Contrast Media Allergy Intermediate HIVES - Verified 12/09/23 01:42 MRI DYE levofloxacin Allergy Intermediate HIVES, Verified 12/09/23 01:42 VEIN IRRITATION W/IV LEVAQUIN erythromycin base Allergy Unknown CAN'T Verified 12/09/23 01:42 REMEMBER gabapentin AdvReac Intermediate Confusion Verified 12/09/23 01:42 Home Medications Medication Instructions Recorded Confirmed Type lancing device #1 ea 07/30/19 11/04/23 Rx cholecalciferol (vitamin D3) 25 25 mcg PO QAM 08/13/20 12/09/23 History mcg (1,000 unit) tablet (Vitamin D3) lancets 30 gauge (Easy Touch #200 ea 09/11/20 11/04/23 Rx Lancets) blood-glucose meter (Accu-Chek #1 ea 11/28/20 11/04/23 Rx Guide Glucose Meter) lancets (Accu-Chek Fastclix Lancet #102 ea 11/28/20 11/04/23 Rx Drum) omeprazole 20 mg capsule,delayed 20 mg PO QAM 03/05/21 12/09/23 History release walker with foldable sides and a #1 ea 10/01/22 11/04/23 Rx tray flash glucose scanning reader #1 ea 04/14/23 11/04/23 Rx (FreeStyle Efren 2 [place]) flash glucose sensor (FreeStyle #1 ea 04/14/23 11/04/23 Rx Efren 2 Sensor kit) mirabegron 50 mg tablet,extended 50 mg PO DAILY #90 tabs 08/04/23 12/09/23 Rx release 24 hr (Myrbetriq) metoprolol succinate 50 mg 50 mg PO DAILY #90 tabs 08/11/23 12/09/23 Rx tablet,extended release 24 hr albuterol sulfate 90 mcg/actuation 2 puff inhalation QID PRN 08/28/23 12/09/23 Rx aerosol inhaler shortness of breath or wheezing #8.5 grams albuterol sulfate 2.5 mg/3 mL 2.5 mg continuous nebulization QID 08/29/23 12/09/23 History (0.083 %) solution for nebulization PRN Shortness Of Breath Or Wheezing apixaban 2.5 mg tablet (Eliquis) 2.5 mg PO BID #180 tabs 09/04/23 12/09/23 Rx pen needle, diabetic 31 gauge x #100 ea 09/09/23 11/04/23 Rx 3/16" (BD Ultra-Fine Mini Pen Needle) wheeled walker with skids on the #1 ea 09/12/23 11/04/23 Rx back hydrocodone 5 mg-acetaminophen 325 1 tab PO Q6H PRN pain #20 tabs 09/19/23 12/09/23 Rx mg tablet blood-glucose meter,continuous #1 ea 10/01/23 11/04/23 Rx (FreeStyle Efren 3 [place]) blood-glucose sensor (FreeStyle #1 ea 10/01/23 11/04/23 Rx Efren 3 Sensor device) atorvastatin 40 mg tablet 40 mg PO QPM #30 tabs 10/16/23 12/09/23 Rx blood sugar diagnostic (Accu-Chek #100 ea 10/28/23 11/04/23 Rx Guide test strips) insulin glargine 100 unit/mL (3 22 unit (0.22 mL) subcut HS #15 mL 10/28/23 12/09/23 Rx mL) subcutaneous pen (Lantus Solostar U-100 Insulin) escitalopram oxalate 10 mg tablet 10 mg PO QAM #90 tabs 11/03/23 12/09/23 Rx furosemide 40 mg tablet (Lasix) 40 mg PO Q2D #90 tabs 11/03/23 12/09/23 Rx amiodarone 400 mg tablet 400 mg PO DAILY #90 tabs 11/04/23 12/09/23 Rx blood sugar diagnostic (Contour #100 ea 11/05/23 11/05/23 Rx Next Test Strips) lidocaine 5 % topical patch 1 patch topical DAILY PRN Pain 12/09/23 12/09/23 History Past Med/Surg History Problem List (Updated 12/09/23 @ 05:53 by Lewis Pettit MD) Frequent falls Generalized weakness Elevated troponin (Acute) UTI (urinary tract infection) (Acute) AMS (altered mental status) (Acute) Chondromatosis of synovium of knee joint Radiculopathy, thoracolumbar region Facet arthropathy, lumbosacral Lumbosacral spondylosis Chronic back pain greater than 3 months duration Aortic stenosis Implantable cardioverter-defibrillator discharge Elevated brain natriuretic peptide (BNP) level (Acute) Hypoxia (Acute) Shortness of breath (Acute) Dysrhythmia (Acute) Ventricular tachycardia (Acute) Lumbar radiculopathy, right (Acute) Degenerative joint disease of knee, right (Acute) Risk for falls Gait disturbance Cervicalgia Neurodermatitis Incontinence of urine in female Rash of unknown cause Vitamin D deficiency (Chronic) per Dr Gutiérrez, hold vit D supplement Hypertension (Chronic) Hyperlipidemia (Chronic 11/23/10) Depression (Chronic) Coronary artery disease (Chronic 11/23/10) Cardiomyopathy (Chronic) CHF (congestive heart failure), NYHA class III (Chronic) EF 20-25% Biventricular ICD (implantable cardioverter-defibrillator) in place (Chronic) Asthma (Chronic) Eczema (Acute) Chronic kidney disease, stage 4 (severe) (Chronic) Severe obesity Cognitive changes Hematuria Current use of exterminator termite anticoagulation (Acute) Diabetes mellitus type 2 in obese IUD (intrauterine device) in place Mirena placed 12/2019 Fungal dermatitis Generalized weakness Obstructive sleep apnea AF (paroxysmal atrial fibrillation) (Chronic) follows with [facility] History of implantable cardioverter-defibrillator (ICD) placement COPD (chronic obstructive pulmonary disease) Esophageal dysmotility Urge incontinence of urine (Chronic) Medical History Admitted to intensive care unit COVID-19 On anticoagulant therapy Presence of combination internal cardiac defibrillator (ICD) and pacemaker History of ventricular tachycardia On home oxygen therapy Poor historian Osteoarthritis History of kidney stones GERD (gastroesophageal reflux disease) Colitis Ileitis Endometrial cancer, grade I CVA (cerebral vascular accident) (11/23/10) 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) Surgical History History of cardiac radiofrequency ablation History of esophagogastroduodenoscopy (EGD) History of colonoscopy History of carpal tunnel release of both wrists History of cystoscopy History of left cataract surgery History of History of cholecystectomy History of appendectomy Hx of CABG History of aortic aneurysm repair H/O aortic valve replacement Family History Mother Diabetes Myocardial infarction Sister Diabetes Son Hypertension Denies family history of Ovarian cancer Prostate cancer Breast cancer Lung cancer Colorectal cancer Cancer Social History Smoking Status: Never smoker Second Hand Exposure: No; Do You Dip or Chew Tobacco: No; Hx Alcohol Use: No Hx Substance Use: No Preferred Language: Belgian Communication Ability: Effective Visual Impairment: Limited Hearing Ability: Normal [place] Former Required: No Beliefs That Will Affect Care: None marital status: / Current Living Situation: Family Current Living Situation Comment: Patient lives with grandchildren current occupational status: disabled How many Children do You have: 3 Feels Safe at Home: Yes Childhood Exposure to Second-Hand Smoke: No Diet: low salt and regular caffeine: Yes (soda) during the past year weight has: remained stable Dental Care, Regularly: No Physical Activity Frequency: Does not Exercise Seatbelt Use: sometimes Sunscreen Use: No Assistive Devices: Walker and Wheelchair Review of Systems Review of Systems: The patient denies chest pain, palpitations, shortness of breath, dyspnea on exertion, cough, lower extremity swelling, sore throat, fevers, chills, sweats, nausea, vomiting, diarrhea , constipation, abdominal pain, pelvic pain, blood in urine or stool, dysuria, urinary frequency or urgency, lightheadedness, dizziness, headache, memory loss, loss of consciousness, rash, abnormal bruising or bleeding, focal or generalized weakness, numbness or tingling in arms, or night sweats. The review of systems is otherwise negative other than for that already noted above, and at least 10 systems have been reviewed. Physical Exam Physical Exam: The patient is awake, alert and oriented 3, well developed and well nourished, normocephalic and atraumatic, lying in bed and in no acute distress. HEENT--PERRL, EOMI, mucous membranes and oropharynx mildly dry. Neck--supple. No JVD. No bruits. Thyroid normal, trachea midline, no adenopathy. Heart--normal S1 and S2. No murmurs, rubs or gallops. Lungs--clear bilaterally, no respiratory distress, no accessory muscle use. Abdomen--normal bowel sounds and soft. Nontender. Nondistended, no hernias or masses, no organomegaly. Extremities--No edema. Dermatologic--normal skin turgor, normal color, no abnormal lymph nodes, no rash. Neurologic--cranial nerves II through XII grossly intact. Rheumatologic--limited exam due to body habitus Psychiatric--normal affect. Results & Data Results & Data Vital Signs (Past 12 Hours) Vital Signs Temp Pulse Pulse Resp BP BP Pulse Ox 12/09/23 03:44 60 12/09/23 01:40 60 16 147/86 H 95 12/08/23 23:58 60 18 120/74 97 12/08/23 23:55 61 12/08/23 23:50 36.8 C 60 18 120/74 97 O2 Del Method O2 Flow Rate 12/09/23 03:44 12/09/23 01:40 Nasal Cannula 2 12/08/23 23:58 Nasal Cannula 2 12/08/23 23:55 12/08/23 23:50 Nasal Cannula 2 Laboratory Results Laboratory Results WBC 5.89 K/ul (4.8-10.8) 12/09/23 04:44 RBC 3.81 M/uL (4.20-5.40) L 12/09/23 04:44 Hgb 11.5 g/dl (12.0-16.0) L 12/09/23 04:44 Hct 35.5 % (37.0-47.0) L 12/09/23 04:44 MCV 93.2 fL (80.0-100.0) 12/09/23 04:44 MCH 30.2 pg (25.0-34.0) 12/09/23 04:44 MCHC 32.4 g/dL (32.0-36.0) 12/09/23 04:44 RDW Std Deviation 60.8 fL (36.4-46.3) H 12/09/23 04:44 RDW Coeff of Chriss 18.2 % (11.5-14.5) H 12/09/23 04:44 Plt Count 143 K/uL (130-400) 12/09/23 04:44 MPV 9.9 fL (9.4-12.4) 12/09/23 04:44 Immature Gran % (Auto) 0.3 % 12/09/23 04:44 Neut % (Auto) 71.9 % 12/09/23 04:44 Lymph % (Auto) 14.8 % 12/09/23 04:44 Stephens % (Auto) 8.3 % 12/09/23 04:44 Eos % (Auto) 4.2 % 12/09/23 04:44 Baso % (Auto) 0.5 % 12/09/23 04:44 Neut # (Auto) 4.23 K/uL (1.40-6.50) 12/09/23 04:44 Lymph # (Auto) 0.87 K/uL (1.20-3.40) L 12/09/23 04:44 Stephens # (Auto) 0.49 K/uL (0.11-0.59) 12/09/23 04:44 Eos # (Auto) 0.25 K/uL (0.00-0.50) 12/09/23 04:44 Baso # (Auto) 0.03 K/uL (0.00-0.20) 12/09/23 04:44 Immature Gran # (Auto) 0.02 K/uL (0.01-0.20) 12/09/23 04:44 Absolute Nucleated RBC Cancelled 12/09/23 02:22 Nucleated RBC % (auto) Cancelled 12/09/23 02:22 Neutrophils % (Manual) Cancelled 12/09/23 02:22 Band Neutrophils % Cancelled 12/09/23 02:22 Lymphocytes % (Manual) Cancelled 12/09/23 02:22 Prolymphocyte % Cancelled 12/09/23 02:22 Reactive Lymphs % (Man) Cancelled 12/09/23 02:22 Monocytes % (Manual) Cancelled 12/09/23 02:22 Eosinophils % (Manual) Cancelled 12/09/23 02:22 Basophils % (Manual) Cancelled 12/09/23 02:22 Metamyelocytes % (Man) Cancelled 12/09/23 02:22 Myelocytes % (Man) Cancelled 12/09/23 02:22 Promyelocytes % (Man) Cancelled 12/09/23 02:22 Blast Cells % (Manual) Cancelled 12/09/23 02:22 Plasma Cell % (Manual) Cancelled 12/09/23 02:22 Other Cells % Cancelled 12/09/23 02:22 Nucleated RBC % Cancelled 12/09/23 02:22 Neutrophils # (Manual) Cancelled 12/09/23 02:22 Band Neutrophils # Cancelled 12/09/23 02:22 Total Absolute Neuts Cancelled 12/09/23 02:22 Lymphocytes # (Manual) Cancelled 12/09/23 02:22 Prolymphocyte # Cancelled 12/09/23 02:22 Reactive Lymphs # Cancelled 12/09/23 02:22 Total Abs Lymphocytes Cancelled 12/09/23 02:22 Monocytes # (Manual) Cancelled 12/09/23 02:22 Eosinophils # (Manual) Cancelled 12/09/23 02:22 Basophils # (Manual) Cancelled 12/09/23 02:22 Metamyelocytes # (Man) Cancelled 12/09/23 02:22 Myelocytes # (Manual) Cancelled 12/09/23 02:22 Promyelocytes # (Man) Cancelled 12/09/23 02:22 Blast Cells # (Man) Cancelled 12/09/23 02:22 Plasma Cell # (Manual) Cancelled 12/09/23 02:22 Other Cells # Cancelled 12/09/23 02:22 Nucleated RBCs # (Man) Cancelled 12/09/23 02:22 Hypersegmented Neuts Cancelled 12/09/23 02:22 Hyposegmented Neuts Cancelled 12/09/23 02:22 Hypogranular Neuts Cancelled 12/09/23 02:22 Large Granular Lymphs Cancelled 12/09/23 02:22 # Lrg Granular Lymphs Cancelled 12/09/23 02:22 Hairy Cells Cancelled 12/09/23 02:22 Smudge Cells Cancelled 12/09/23 02:22 Toxic Granulation Cancelled 12/09/23 02:22 Toxic Vacuolation Cancelled 12/09/23 02:22 Dohle Bodies Cancelled 12/09/23 02:22 Shantal Rods Cancelled 12/09/23 02:22 Platelet Estimate Cancelled 12/09/23 02:22 Hypogranular Platelets Cancelled 12/09/23 02:22 Giant Platelets Cancelled 12/09/23 02:22 Platelet Satelliting Cancelled 12/09/23 02:22 RBC Morphology Cancelled 12/09/23 02:22 Polychromasia Cancelled 12/09/23 02:22 Hypochromasia Cancelled 12/09/23 02:22 Poikilocytosis Cancelled 12/09/23 02:22 Basophilic Stippling Cancelled 12/09/23 02:22 Anisocytosis Cancelled 12/09/23 02:22 Microcytosis Cancelled 12/09/23 02:22 Macrocytosis Cancelled 12/09/23 02:22 Spherocytes Cancelled 12/09/23 02:22 Pappenheimer Bodies Cancelled 12/09/23 02:22 Sickle Cells Cancelled 12/09/23 02:22 Target Cells Cancelled 12/09/23 02:22 Tear Drop Cells Cancelled 12/09/23 02:22 Ovalocytes Cancelled 12/09/23 02:22 Stomatocytes Cancelled 12/09/23 02:22 [place] Bodies Cancelled 12/09/23 02:22 Echinocytes Cancelled 12/09/23 02:22 Acanthocytes (Spur) Cancelled 12/09/23 02:22 Rouleaux Cancelled 12/09/23 02:22 RBC Agglutinates Cancelled 12/09/23 02:22 Schistocytes Cancelled 12/09/23 02:22 Sezary Cell Cancelled 12/09/23 02:22 Sodium 142 mmol/L (136-145) 12/09/23 02:22 Potassium 3.9 mmol/L (3.5-5.1) 12/09/23 02:22 Chloride 111 mmol/L (98-107) H 12/09/23 02:22 Carbon Dioxide 26 mmol/L (21-32) 12/09/23 02:22 Anion Gap 5 (3-11) 12/09/23 02:22 BUN 28 mg/dl (6-23) H 12/09/23 02:22 Creatinine 2.44 mg/dl (0.6-1.2) H 12/09/23 02:22 Est Cr Clr Drug Dosing 18.6 ml/min 12/09/23 02:22 Est GFR ( Amer) 21.0 ml/min 12/09/23 02:22 Est GFR (Non-Af Amer) 18.1 ml/min 12/09/23 02:22 BUN/Creatinine Ratio 11.5 (10-20) 12/09/23 02:22 Glucose 135 mg/dl (70-99(Fasting)) H 12/09/23 02:22 Calcium 9.1 mg/dl (8.6-10.3) 12/09/23 02:22 Urine Color Dark Yellow 12/09/23 01:45 Urine Appearance Clear (Clear) 12/09/23 01:45 Urine pH 5.5 (4.5-7.5) 12/09/23 01:45 Ur Specific [place] 1.023 (1.000-1.030) 12/09/23 01:45 Urine Protein 1+ (Negative) H 12/09/23 01:45 Urine Glucose (UA) Negative (Negative) 12/09/23 01:45 Urine Ketones Trace (Negative) H 12/09/23 01:45 Urine Blood Negative (Negative) 12/09/23 01:45 Urine Nitrite Negative (Negative) 12/09/23 01:45 Urine Bilirubin 1+ (Negative) H 12/09/23 01:45 Urine Urobilinogen Negative (Negative) 12/09/23 01:45 Ur Leukocyte Esterase Trace (Negative) H 12/09/23 01:45 Urine WBC (Auto) 6-10 /hpf (0-5) H 12/09/23 01:45 Urine RBC (Auto) 6-10 /hpf (0-2) H 12/09/23 01:45 U Hyaline Cast (Auto) 0-2 /lpf (0-2) 12/09/23 01:45 U Epithel Cells (Auto) 0-2 /hpf (0-2) 12/09/23 01:45 Urine Bacteria (Auto) None Seen (None Seen) 12/09/23 01:45 Calcium Oxalate Crystal Present (None Prsent) A 12/09/23 01:45 Blood Parasites ID Cancelled 12/09/23 02:22 Code Status & VTE Plan Code Status Full code VTE Prophylaxis Plan VTE Prophylaxis will be ordered: Yes PG Care Time/CCT Total # of Minutes Spent Total Time Spent with Patient: Total time spent is greater than 50% in coordination of care (as documented) at patient's floor/unit and/or counseling patient: Coding Level of Care Code 01697 INT INP/OBS CARE 3/75MIN Diagnoses Generalized weakness R53.1 Frequent falls R29.6 UTI (urinary tract infection) N39.0 Radiculopathy, thoracolumbar region M54.15 Implantable cardioverter-defibrillator discharge Z45.02 Ventricular tachycardia I47.20 Gait disturbance R26.9 Essential hypertension I10 Hypertension type: essential hypertension Coronary artery disease involving [place] coronary artery of [place] heart without angina pectoris I25.10 Coronary Disease-Associated Artery/Lesion type: [place] artery [place] vs. transplanted heart: [place] heart Associated angina: without angina Cardiomyopathy, unspecified type I42.9 Cardiomyopathy type: unspecified Biventricular ICD (implantable cardioverter-defibrillator) in place Z95.810 Chronic kidney disease, stage 4 (severe) N18.4 Diabetes mellitus type 2 in obese E11.69; E66.9 (8) Hypertension Hypertension type: essential hypertension Qualified Code(s): I10 - Essential (primary) hypertension (9) Coronary artery disease Coronary Disease-Associated Artery/Lesion type: [place] artery [place] vs. transplanted heart: [place] heart Associated angina: without angina Qualified Code(s): I25.10 - Atherosclerotic heart disease of [place] coronary artery without angina pectoris (10) Cardiomyopathy Cardiomyopathy type: unspecified Qualified Code(s): I42.9 - Cardiomyopathy, unspecified
[2023-12-09] MEDS ORDERED: DEXTROSE 50% 50 ML SYRINGE IV PRN (04:05)
[2023-12-09] MEDS ORDERED: ALBUTEROL HFA 8 GM INHALER INH PRN (04:05)
[2023-12-09] MEDS ORDERED: GLUCOSE 40% GEL 15 GM TUBE PO PRN (04:05)
[2023-12-09] MEDS ORDERED: ALBUTEROL 0.083% NEBU SOLN 3 ML VIAL NEB PRN (04:05)
[2023-12-09] MEDS ORDERED: GLUCAGON FOR INJ 1 MG VIAL SQ PRN (04:05)
[2023-12-09] MEDS ORDERED: CARBOHYDRATES FOR HYPOGLYCEMIA PO PRN (04:05)
[2023-12-09] MEDS ORDERED: GLUCOSE 10 TAB/TUBE PO PRN (04:05)
[2023-12-09 05:30] LABS: Basophils # (auto) 0.03 K/uL (0.00-0.20); Basophils % (auto) 0.5 %; Eosinophils # (auto) 0.25 K/uL (0.00-0.50); Eosinophils % (auto) 4.2 %; Hematocrit (blood only) 35.5 % (37.0-47.0); Hemoglobin 11.5 g/dl (12.0-16.0); Immature Granulocytes # (auto) 0.02 K/uL (0.01-0.20); Immature Granulocytes % (auto) 0.3 %; Lymphocytes # (auto) 0.87 K/uL (1.20-3.40); Lymphocytes % (auto) 14.8 %; Mean Corpuscular Hemoglobin 30.2 pg (25.0-34.0); Mean Corpuscular Hgb Conc 32.4 g/dL (32.0-36.0); Mean Corpuscular Volume 93.2 fL (80.0-100.0); Mean Platelet Volume 9.9 fL (9.4-12.4); Monocytes # (auto) 0.49 K/uL (0.11-0.59); Monocytes % (auto) 8.3 %; Neutrophils # (auto) 4.23 K/uL (1.40-6.50); Neutrophils % (auto) 71.9 %; Platelet Count 143 K/uL (130-400); RDW Coefficient of Variation 18.2 % (11.5-14.5); RDW Standard Deviation 60.8 fL (36.4-46.3); Red Blood Count 3.81 M/uL (4.20-5.40); White Blood Count 5.89 K/ul (4.8-10.8)
[2023-12-09] MEDS: cefTRIAXone SODIUM 2,000 MG/50 ML BAG IV SCH (06:23)
[2023-12-09] MEDS: HYDROCODONE/ACETAMOPHEN 5/325MG TAB PO PRN (06:25)
--- NOTE | 2023-12-09 07:14 | XRay Report ---
XR hip RT 2V w pelvis HISTORY: 78 years-old Female hip pain, fall acute pain of the pelvis and right hip status post fall COMPARISON: CT abdomen and pelvis 09/21/2023 TECHNIQUE: AP view of the pelvis with 2 views of the right hip FINDINGS: IUD noted. Mild to moderate osteoarthritis of the hips. Demineralized appearance of the bones. There is no acute fracture, dislocation, avascular necrosis or osseous erosion is identified. IMPRESSION: No acute fracture or dislocation identified. ACT 112: Negative or not required by law. The above report was generated using voice recognition software. It may contain grammatical, syntax o r spelling errors. Electronically signed by: Samuel Vail M.D. 12/09/2023 7:12 AM
[2023-12-09 07:22] LABS: Estimated Average Glucose 200 mg/dl; Hemoglobin A1C 8.6 % (4.5-5.6)
--- NOTE | 2023-12-09 08:01 | XRay Report ---
XR elbow RT min 3V routine CLINICAL HISTORY: Elbow trauma TECHNIQUE: 3 views of the right elbow were obtained. Comparison: Comparison is made to right elbow radiographs 07/17/2019 FINDINGS: There is no evidence of an acute fracture. Degenerative changes are seen in the elbow joint. There is no prominence of the anterior or posterior fat pads to suggest an effusion. No soft tissue abnormali ty is seen. IMPRESSION: No evidence of acute osseous injury. ACT 112: Negative or not required by law. Electronically signed by: Gaston Langston M.D. 12/09/2023 8:00 AM
--- NOTE | 2023-12-09 08:29 | Hospitalist Progress Note ---
Date of Service December 09, 2023 Assessment & Plan (1) Generalized weakness: Plan: Multiple recent falls/progressive generalized weakness/ambulatory dysfunction- previously with metabolic encephalopathy from uti's Likely progression of generalized debilitation Consult PT/OT Will likely need inpatient rehab versus ECF chronic urinary tract infection Follow urine culture and sensitivity Empiric ceftriaxone (2) Radiculopathy, thoracolumbar region: Plan: chronically takes hydrocodone (3) Cardiomyopathy: Plan: CAD/cardiomyopathy/CHF/biventricular ICD/ventricular tachycardia Continue usual medications: Amiodarone, apixaban, atorvastatin, furosemide, metoprolol succinate Last Echo 09/02 EF 15-20% with severe global hypokinesis, bioprosthetic aortic valve and severe stenosis chronic HFrEF not in decompensation (4) Chronic kidney disease, stage 4 (severe): Plan: likely result of DM and HTN , not on matthew or arb (5) Diabetes mellitus type 2 in obese: Plan: Diabetes mellitus- Reduce insulin glargine from 22 to 16 units subcu at bedtime Placed on Accu-Cheks with NovoLog SSI Plan COPD- Continue usual inhalers Admission and Anticipated Discharge Date Admission Date: December 09, 2023 Subjective Updated family at bedside patient was conversant admits to being weak over the last few months., Hemoglobin A1c has been poorly controlled with 8.6 range resulted on 12/08 Physical Exam Physical Exam: Patient is awake and alert she is drowsy and cardiac exam is regular without murmurs although she has a history of atrial fibs she sounds to be regular lungs are clear extremities she can move her lower extremities but not lift her legs off the bed against gravity Results & Data Results & Data Vital Signs (Past 12 Hours) Vital Signs Temp Pulse Pulse Pulse Resp BP BP 12/09/23 07:23 97.7 F 58 L 18 12/09/23 06:08 60 12/09/23 06:02 12/09/23 06:02 97.5 F L 60 20 131/92 12/09/23 04:45 60 16 12/09/23 03:44 60 12/09/23 03:30 60 16 12/09/23 01:40 60 16 12/08/23 23:58 60 18 120/74 12/08/23 23:55 61 12/08/23 23:50 98.2 F 60 18 BP Pulse Ox O2 Del Method O2 Flow Rate 12/09/23 07:23 128/81 96 Nasal Cannula 2 12/09/23 06:08 12/09/23 06:02 Nasal Cannula 2 12/09/23 06:02 96 Nasal Cannula 2 12/09/23 04:45 155/82 H 96 Nasal Cannula 2 12/09/23 03:44 12/09/23 03:30 148/87 H 96 Nasal Cannula 2 12/09/23 01:40 147/86 H 95 Nasal Cannula 2 12/08/23 23:58 97 Nasal Cannula 2 12/08/23 23:55 12/08/23 23:50 120/74 97 Nasal Cannula 2 Laboratory Results Reviewed CBC reviewed chemistry Ordered a.m. cortisol PG Care Time/CCT Total # of Minutes Spent Total Time Spent with Patient: Total time spent is greater than 50% in coordination of care (as documented) at patient's floor/unit and/or counseling patient: Coding Level of Care Code 04391 SUB INP/OBS CARE 2/35MIN Diagnoses Generalized weakness R53.1 Radiculopathy, thoracolumbar region M54.15 Cardiomyopathy, unspecified type I42.9 Cardiomyopathy type: unspecified Chronic kidney disease, stage 4 (severe) N18.4 Diabetes mellitus type 2 in obese E11.69; E66.9 (3) Cardiomyopathy Cardiomyopathy type: unspecified Qualified Code(s): I42.9 - Cardiomyopathy, unspecified
[2023-12-09] MEDS: INSULIN ASPART PER UNIT CHARGE SC SCH (09:10)
[2023-12-09] MEDS: AMIODARONE 200 MG TAB PO SCH (09:11)
[2023-12-09] MEDS: CHOLECALCIFEROL 25 MCG (1000 UNITS) TAB PO SCH (09:13)
[2023-12-09] MEDS: ESCITALOPRAM OXALATE 10 MG TAB PO SCH (09:13)
[2023-12-09] MEDS: APIXABAN 2.5 MG TAB PO SCH (09:13)
[2023-12-09] MEDS: PANTOprazole 40 MG TAB PO SCH (09:14)
[2023-12-09] MEDS: FUROSEMIDE 40 MG TAB PO SCH (09:14)
[2023-12-09] MEDS: METOPROLOL SUCC 50MG EXT REL TAB PO SCH (09:14)
[2023-12-09] MEDS: VIBEGRON 75 MG TAB PO SCH (09:14)
[2023-12-09] MEDS: LANTUS PER UNIT CHARGE SQ SCH (21:00)
[2023-12-09] MEDS: ATORVASTATIN 40 MG TAB PO SCH (21:00)
[2023-12-10 08:55] LABS: Basophils # (auto) 0.04 K/uL (0.00-0.20); Basophils % (auto) 0.5 %; Eosinophils # (auto) 0.31 K/uL (0.00-0.50); Eosinophils % (auto) 4.3 %; Hematocrit (blood only) 40.6 % (37.0-47.0); Hemoglobin 13.2 g/dl (12.0-16.0); Immature Granulocytes # (auto) 0.03 K/uL (0.01-0.20); Immature Granulocytes % (auto) 0.4 %; Lymphocytes # (auto) 1.01 K/uL (1.20-3.40); Lymphocytes % (auto) 13.9 %; Mean Corpuscular Hemoglobin 30.4 pg (25.0-34.0); Mean Corpuscular Hgb Conc 32.5 g/dL (32.0-36.0); Mean Corpuscular Volume 93.5 fL (80.0-100.0); Mean Platelet Volume 9.2 fL (9.4-12.4); Monocytes # (auto) 0.58 K/uL (0.11-0.59); Neutrophils # (auto) 5.32 K/uL (1.40-6.50); Neutrophils % (auto) 72.9 %; Platelet Count 156 K/uL (130-400); RDW Coefficient of Variation 18.5 % (11.5-14.5); RDW Standard Deviation 62.4 fL (36.4-46.3); Red Blood Count 4.34 M/uL (4.20-5.40); White Blood Count 7.29 K/ul (4.8-10.8)
[2023-12-10 09:21] LABS: Albumin Level 3.4 gm/dl (3.4-5.0); BUN Creatinine Ratio 9.9 (10-20); Creatinine Clr Calc Pharmacy 18.7 ml/min; Est GFR (African American) 21.1 ml/min; Est GFR (Non-African American) 18.2 ml/min; Magnesium 1.7 mg/dl (1.7-2.4); Potassium 4.1 mmol/L (3.5-5.1)
[2023-12-10] MEDS: ACETAMINOPHEN 325 MG TAB PO PRN (11:06)
[2023-12-10] MEDS: MICONAZOLE NITRATE POWDER 85 GM EXT PRN (13:06)
--- NOTE | 2023-12-10 16:48 | Hospitalist Progress Note ---
Date of Service December 10, 2023 Assessment & Plan (1) Generalized weakness: Plan: Multiple recent falls/progressive generalized weakness/ambulatory dysfunction- previously with metabolic encephalopathy from uti's Likely progression of generalized debilitation Consult PT/OT Patient is agreeable to rehab at this time chronic urinary tract infection current cultures pinpoint growth re incubating Follow urine culture and sensitivity Empiric ceftriaxone 3-day therapy if cultures are negative (2) Radiculopathy, thoracolumbar region: Plan: chronically takes hydrocodone (3) Cardiomyopathy: Plan: CAD/cardiomyopathy/CHF/biventricular ICD/ventricular tachycardia Continue usual medications: Amiodarone, apixaban, atorvastatin, furosemide, metoprolol succinate Last Echo 09/02 EF 15-20% with severe global hypokinesis, bioprosthetic aortic valve and severe stenosis chronic HFrEF not in decompensation (4) Chronic kidney disease, stage 4 (severe): Plan: likely result of DM and HTN , not on matthew or arb (5) Diabetes mellitus type 2 in obese: Plan: Diabetes mellitus- Reduce insulin glargine from 22 to 16 units subcu at bedtime Placed on Accu-Cheks with NovoLog SSI Plan COPD- Continue usual inhalers Admission and Anticipated Discharge Date Admission Date: December 09, 2023 Subjective Patient is awake and alert. She attempted to stand is very weak cannot bear on weight. She can move her lower extremities in the bed can barely lift them against gravity is intact sensation. She is supportive going to rehab at this time. Physical Exam Physical Exam: Patient is awake and alert she is drowsy and cardiac exam is regular without murmurs although she has a history of atrial fibs she sounds to be regular lungs are clear extremities she can move her lower extremities now she can left her legs off the bed against gravity Results & Data Results & Data Vital Signs (Past 12 Hours) Vital Signs Temp Pulse Pulse Resp BP Pulse Ox O2 Del Method 12/10/23 15:39 97.9 F 60 18 99/64 L 97 Nasal Cannula 12/10/23 14:23 60 12/10/23 11:26 98.1 F 58 L 18 111/75 92 Nasal Cannula 12/10/23 08:00 Nasal Cannula 12/10/23 07:39 98.2 F 57 L 17 115/79 96 Nasal Cannula 12/10/23 07:18 60 O2 Flow Rate 12/10/23 15:39 2 12/10/23 14:23 12/10/23 11:26 2 12/10/23 08:00 2 12/10/23 07:39 2 12/10/23 07:18 Laboratory Results Reviewed CBC reviewed chemistry reviewed a.m. cortisol PG Care Time/CCT Total # of Minutes Spent Total Time Spent with Patient: Total time spent is greater than 50% in coordination of care (as documented) at patient's floor/unit and/or counseling patient: Coding Level of Care Code 13618 SUB INP/OBS CARE 2/35MIN Diagnoses Generalized weakness R53.1 Radiculopathy, thoracolumbar region M54.15 Cardiomyopathy, unspecified type I42.9 Cardiomyopathy type: unspecified Chronic kidney disease, stage 4 (severe) N18.4 Diabetes mellitus type 2 in obese E11.69; E66.9 (3) Cardiomyopathy Cardiomyopathy type: unspecified Qualified Code(s): I42.9 - Cardiomyopathy, unspecified
[2023-12-10] MEDS: ONDANSETRON INJ 2 MG/ML 2 ML VIAL IV PRN (18:11)
--- NOTE | 2023-12-10 21:52 | Electrocardiogram Report ---
Test Reason : Blood Pressure : / mmHG Vent. Rate : 061 BPM Atrial Rate : 061 BPM P-R Int : 000 ms QRS Dur : 098 ms QT Int : 414 ms P-R-T Axes : -28 -46 -14 degrees QTc Int : 416 ms Ventricular-paced rhythm Biventricular pacemaker detected Abnormal ECG When compared with ECG of 22-SEP-2023 04:55, No significant change was found Confirmed by Greg Edward ([id number]) on 12/10/2023 9:51:49 PM Referred By: REFERRED SELF Confirmed By:Greg Edward
[2023-12-11 06:20] LABS: Basophils # (auto) 0.04 K/uL (0.00-0.20); Basophils % (auto) 0.7 %; Eosinophils # (auto) 0.24 K/uL (0.00-0.50); Eosinophils % (auto) 3.9 %; Hematocrit (blood only) 37.4 % (37.0-47.0); Immature Granulocytes # (auto) 0.03 K/uL (0.01-0.20); Immature Granulocytes % (auto) 0.5 %; Lymphocytes # (auto) 0.82 K/uL (1.20-3.40); Lymphocytes % (auto) 13.3 %; Mean Corpuscular Hemoglobin 30.5 pg (25.0-34.0); Mean Corpuscular Hgb Conc 32.1 g/dL (32.0-36.0); Mean Corpuscular Volume 95.2 fL (80.0-100.0); Mean Platelet Volume 9.5 fL (9.4-12.4); Monocytes # (auto) 0.54 K/uL (0.11-0.59); Monocytes % (auto) 8.8 %; Neutrophils # (auto) 4.48 K/uL (1.40-6.50); Neutrophils % (auto) 72.8 %; Platelet Count 142 K/uL (130-400); RDW Standard Deviation 63.2 fL (36.4-46.3); Red Blood Count 3.93 M/uL (4.20-5.40); White Blood Count 6.15 K/ul (4.8-10.8)
[2023-12-11 06:34] LABS: Albumin Level 2.9 gm/dl (3.4-5.0); BUN Creatinine Ratio 11.2 (10-20); Calcium 8.7 mg/dl (8.6-10.3); Creatinine Clr Calc Pharmacy 18.2 ml/min; Est GFR (African American) 20.4 ml/min; Est GFR (Non-African American) 17.6 ml/min; Magnesium 1.7 mg/dl (1.7-2.4); Phosphorus 3.6 mg/dl (2.5-4.9); Potassium 4.4 mmol/L (3.5-5.1)
--- NOTE | 2023-12-11 16:39 | Hospitalist Progress Note ---
Date of Service December 11, 2023 Assessment & Plan (1) Generalized weakness: Plan: Multiple recent falls/progressive generalized weakness/ambulatory dysfunction- previously with metabolic encephalopathy from uti's Likely progression of generalized debilitation Consult PT/OT Patient is agreeable to rehab at this time chronic urinary tract infection current cultures pinpoint growth re incubating Follow urine culture and sensitivity Empiric ceftriaxone 3-day therapy polymicrobial ua , complete 3 days (2) Radiculopathy, thoracolumbar region: Plan: chronically takes hydrocodone (3) Cardiomyopathy: Plan: CAD/cardiomyopathy/CHF/biventricular ICD/ventricular tachycardia Continue usual medications: Amiodarone, apixaban, atorvastatin, furosemide, metoprolol succinate Last Echo 09/02 EF 15-20% with severe global hypokinesis, bioprosthetic aortic valve and severe stenosis chronic HFrEF not in decompensation (4) Chronic kidney disease, stage 4 (severe): Plan: likely result of DM and HTN , not on matthew or arb (5) Diabetes mellitus type 2 in obese: Plan: Diabetes mellitus- Reduce insulin glargine from 22 to 16 units subcu at bedtime Placed on Accu-Cheks with NovoLog SSI Plan COPD- Continue usual inhalers Admission and Anticipated Discharge Date Admission Date: December 09, 2023 Subjective Patient is awake and alert. She attempted to stand is very weak cannot bear on weight. She can move her lower extremities in the bed can barely lift them against gravity is intact sensation. pt has not had a bowel movement She is supportive going to rehab at this time. Physical Exam Physical Exam: Patient is awake and alert cardiac exam is regular without murmurs although she has a history of atrial fibs she sounds to be regular lungs are clear extremities she can move her lower extremities now she can left her legs off the bed against gravity Results & Data Results & Data Vital Signs (Past 12 Hours) Vital Signs Temp Pulse Pulse Resp BP BP Pulse Ox 12/11/23 16:10 97.7 F 59 L 18 118/79 96 12/11/23 15:30 60 12/11/23 11:41 97.5 F L 60 18 104/69 93 12/11/23 10:14 12/11/23 07:42 97.9 F 60 18 113/76 97 12/11/23 07:19 60 O2 Del Method O2 Flow Rate 12/11/23 16:10 Nasal Cannula 2 12/11/23 15:30 12/11/23 11:41 Room Air 12/11/23 10:14 Nasal Cannula 2 12/11/23 07:42 Nasal Cannula 2 12/11/23 07:19 Laboratory Results review cbc review chemistry cr stable but higher PG Care Time/CCT Total # of Minutes Spent Total Time Spent with Patient: Total time spent is greater than 50% in coordination of care (as documented) at patient's floor/unit and/or counseling patient: Coding Level of Care Code 12126 SUB INP/OBS CARE 2/35MIN Diagnoses Generalized weakness R53.1 Radiculopathy, thoracolumbar region M54.15 Cardiomyopathy, unspecified type I42.9 Cardiomyopathy type: unspecified Chronic kidney disease, stage 4 (severe) N18.4 Diabetes mellitus type 2 in obese E11.69; E66.9 (3) Cardiomyopathy Cardiomyopathy type: unspecified Qualified Code(s): I42.9 - Cardiomyopathy, unspecified
[2023-12-11] MEDS: POLYETHYLENE (MIRALAX) 17 GM PACK PO ONE (17:09)
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
[2023-12-12] MEDS: SENNA 8.6 MG TAB PO ONE (18:45)
[2023-12-13 06:25] LABS: Hematocrit (blood only) 37.2 % (37.0-47.0); Hemoglobin 11.9 g/dl (12.0-16.0); Mean Corpuscular Volume 93.7 fL (80.0-100.0); Platelet Count 155 K/uL (130-400); RDW Coefficient of Variation 17.8 % (11.5-14.5); RDW Standard Deviation 61.7 fL (36.4-46.3); Red Blood Count 3.97 M/uL (4.20-5.40); White Blood Count 6.52 K/ul (4.8-10.8)
[2023-12-13 06:53] LABS: BUN Creatinine Ratio 14.4 (10-20); Calcium 8.8 mg/dl (8.6-10.3); Creatinine Clr Calc Pharmacy 19.4 ml/min; Est GFR (African American) 21.1 ml/min; Est GFR (Non-African American) 18.2 ml/min; Potassium 4.3 mmol/L (3.5-5.1)
[2023-12-13] MEDS: SENNA 8.6 MG TAB PO SCH (08:56)
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
[2023-12-14 07:19] LABS: BUN Creatinine Ratio 15.5 (10-20); Creatinine Clr Calc Pharmacy 20.9 ml/min; Est GFR (Non-African American) 19.8 ml/min; Potassium 3.9 mmol/L (3.5-5.1)
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
[2023-12-15 07:33] LABS: Hematocrit (blood only) 35.2 % (37.0-47.0); Hemoglobin 11.4 g/dl (12.0-16.0); Mean Corpuscular Hemoglobin 29.9 pg (25.0-34.0); Mean Corpuscular Hgb Conc 32.4 g/dL (32.0-36.0); Mean Corpuscular Volume 92.4 fL (80.0-100.0); Mean Platelet Volume 9.9 fL (9.4-12.4); Platelet Count 167 K/uL (130-400); RDW Coefficient of Variation 17.6 % (11.5-14.5); RDW Standard Deviation 59.7 fL (36.4-46.3); Red Blood Count 3.81 M/uL (4.20-5.40)
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
[2023-12-16 09:44] LABS: Appearance Urine Clear (Clear); Bilirubin Urine Negative (Negative); Blood Urine Negative (Negative); Color Urine Yellow; Glucose Urine UA Negative (Negative); Ketones Urine Negative (Negative); Leukocyte Esterase Urine Negative (Negative); Nitrite Urine Negative (Negative); Protein Urine Negative (Negative); Specific Gravity Urine 1.012 (1.000-1.030); Urobilinogen Urine Negative (Negative); pH Urine 5.5 (4.5-7.5)
--- NOTE | 2023-12-16 15:00 | Hospitalist Progress Note ---
Date of Service December 16, 2023 Assessment & Plan (1) Metabolic encephalopathy: Plan: Present on admission. Now resolved (2) UTI (urinary tract infection): Plan: Suspected on admission. She was treated with antibiotics. Urine culture was nondiagnostic (3) Generalized weakness: Plan: Improving. Treated with OT and PT while hospitalized. Case management is seeking SNF placement (4) Elevated troponin: Plan: Probably due to demand ischemia. No chest pain and no acute EKG changes. No evidence of acute NH Plan Hopeful discharge to [facility] [place] tomorrow, December 16 Admission and Anticipated Discharge Date Admission Date: December 09, 2023 Subjective Alert and oriented. No acute distress. [facility] care is unable to offer the patient a bed. Case management is seeking placement at [facility] [place]. Stable overall Review of Systems 2 Review of Systems: Constitutional-no fever or chills ENT-no blurred vision, no double vision, no epistaxis, no sore throat Respiratory-no cough, no wheezing, no shortness of breath Cardiac-no palpitations, no chest pain, no syncope GI-no nausea, vomiting, diarrhea, melena, hematochezia -no urinary retention, no urinary incontinence, no dysuria, no hematuria Musculoskeletal-no joint pain, no muscle tenderness Skin-no bruising, no rashes, no pruritus Neuro-no isolated weakness, no paresthesia, no weakness Psych-no depression, no anxiety Physical Exam 2 Physical Exam: General-alert and oriented x3, no fever, no chills HEENT-head atraumatic and normocephalic, pupils equal and reactive to light, extraocular muscles intact Neck-no lymphadenopathy or thyromegaly, trachea midline Chest-clear to auscultation. No rales, wheezing or rhonchi Cardiac-regular rate and rhythm, normal S1 and S2 Abdomen-normal bowel sounds, no hepatosplenomegaly Extremities-no cyanosis, clubbing, or edema Neuro-cranial nerves II through XII intact, motor and sensory function within normal limits, strength symmetrical, no focal deficits Psych-normal affect, normal mood Results & Data Results & Data Vital Signs (Past 12 Hours) Vital Signs Temp Pulse Pulse Resp BP BP Pulse Ox 12/16/23 14:52 60 12/16/23 11:35 36.9 C 62 20 110/73 98 12/16/23 09:00 60 12/16/23 09:00 12/16/23 07:27 36.5 C 60 20 111/71 99 12/16/23 03:11 36.7 C 60 14 112/75 97 O2 Del Method O2 Flow Rate 12/16/23 14:52 12/16/23 11:35 Nasal Cannula 2.5 12/16/23 09:00 12/16/23 09:00 Nasal Cannula 2 12/16/23 07:27 Nasal Cannula 2.5 12/16/23 03:11 Nasal Cannula 2 Laboratory Results 12/15/23 06:46 12/14/23 05:47 PG Care Time/CCT Total # of Minutes Spent Total Time Spent with Patient: Total time spent is greater than 50% in coordination of care (as documented) at patient's floor/unit and/or counseling patient: Coding Level of Care Code 52058 SUB INP/OBS CARE 2/35MIN Diagnoses Metabolic encephalopathy G93.41 UTI (urinary tract infection) N39.0 Generalized weakness R53.1 Elevated troponin R79.89
[2023-12-16 15:34] VITALS: RESP 18
[2023-12-16] MEDS: MELATONIN 3 MG TAB PO PRN (21:07)
[2023-12-17 07:26] VITALS: TEMP 97.5
[2023-12-17 11:22] VITALS: PULSE 60; O2SAT 98
--- NOTE | 2023-12-17 11:39 | Discharge Summary ---
Discharge Summary Date of Service December 17, 2023 Principal Dx & Hospital Course #1 = Principal Diagnosis (1) Metabolic encephalopathy: Present on admission. Now resolved (2) UTI (urinary tract infection): Suspected on admission. She was treated with antibiotics. Urine culture was nondiagnostic (3) Generalized weakness: Improving. Treated with OT and PT while hospitalized. Case management is seeking SNF placement (4) Elevated troponin: Probably due to demand ischemia. No chest pain and no acute EKG changes. No evidence of acute AR Plan Discharge to [facility] [place] today, December 16 Admission HPI Per Admitting Provider The patient is an 78-year-old female with a past medical history including urinary tract infection, thoracolumbar radiculopathy, lumbosacral facet arthropathy, chronic back pain syndrome, AICD with history of ventricular tachycardia, paroxysmal atrial fibrillation, CAD, cardiomyopathy, CHF NYHA class III, CKD stage IV, diabetes mellitus, IUD in place, COPD, esophageal dysmotility and urinary urge incontinence. She presents to the emergency department as noted above. Primary issue is that of progressive generalized weakness, and inability to ambulate without falling and to care for self at home. She does live with her family, who was having more difficulty taking care of her at this time Discharge Exam General-alert and oriented x3, no fever, no chills HEENT-head atraumatic and normocephalic, pupils equal and reactive to light, extraocular muscles intact Neck-no lymphadenopathy or thyromegaly, trachea midline Chest-clear to auscultation. No rales, wheezing or rhonchi Cardiac-regular rate and rhythm, normal S1 and S2 Abdomen-normal bowel sounds, no hepatosplenomegaly Extremities-no cyanosis, clubbing, or edema Neuro-cranial nerves II through XII intact, motor and sensory function within normal limits, strength symmetrical, no focal deficits Psych-normal affect, normal mood Updated Medication List Medication Instructions Recorded Confirmed Type lancing device #1 ea 07/30/19 11/04/23 Rx cholecalciferol (vitamin D3) 25 25 mcg PO QAM 08/13/20 12/09/23 History mcg (1,000 unit) tablet (Vitamin D3) lancets 30 gauge (Easy Touch #200 ea 09/11/20 11/04/23 Rx Lancets) blood-glucose meter (Accu-Chek #1 ea 11/28/20 11/04/23 Rx Guide Glucose Meter) lancets (Accu-Chek Fastclix Lancet #102 ea 11/28/20 11/04/23 Rx Drum) omeprazole 20 mg capsule,delayed 20 mg PO QAM 03/05/21 12/09/23 History release walker with foldable sides and a #1 ea 10/01/22 11/04/23 Rx tray flash glucose scanning reader #1 ea 04/14/23 11/04/23 Rx (FreeStyle Efren 2 [place]) flash glucose sensor (FreeStyle #1 ea 04/14/23 11/04/23 Rx Efren 2 Sensor kit) mirabegron 50 mg tablet,extended 50 mg PO DAILY #90 tabs 08/04/23 12/09/23 Rx release 24 hr (Myrbetriq) metoprolol succinate 50 mg 50 mg PO DAILY #90 tabs 08/11/23 12/09/23 Rx tablet,extended release 24 hr albuterol sulfate 90 mcg/actuation 2 puff inhalation QID PRN 08/28/23 12/09/23 Rx aerosol inhaler shortness of breath or wheezing #8.5 grams albuterol sulfate 2.5 mg/3 mL 2.5 mg continuous nebulization QID 08/29/23 12/09/23 History (0.083 %) solution for nebulization PRN Shortness Of Breath Or Wheezing apixaban 2.5 mg tablet (Eliquis) 2.5 mg PO BID #180 tabs 09/04/23 12/09/23 Rx pen needle, diabetic 31 gauge x #100 ea 09/09/23 11/04/23 Rx 3/16" (BD Ultra-Fine Mini Pen Needle) wheeled walker with skids on the #1 ea 09/12/23 11/04/23 Rx back hydrocodone 5 mg-acetaminophen 325 1 tab PO Q6H PRN pain #20 tabs 09/19/23 12/09/23 Rx mg tablet blood-glucose meter,continuous #1 ea 10/01/23 11/04/23 Rx (FreeStyle Efren 3 [place]) blood-glucose sensor (FreeStyle #1 ea 10/01/23 11/04/23 Rx Efren 3 Sensor device) atorvastatin 40 mg tablet 40 mg PO QPM #30 tabs 10/16/23 12/09/23 Rx blood sugar diagnostic (Accu-Chek #100 ea 10/28/23 11/04/23 Rx Guide test strips) insulin glargine 100 unit/mL (3 22 unit (0.22 mL) subcut HS #15 mL 10/28/23 12/09/23 Rx mL) subcutaneous pen (Lantus Solostar U-100 Insulin) escitalopram oxalate 10 mg tablet 10 mg PO QAM #90 tabs 11/03/23 12/09/23 Rx furosemide 40 mg tablet (Lasix) 40 mg PO Q2D #90 tabs 11/03/23 12/09/23 Rx amiodarone 400 mg tablet 400 mg PO DAILY #90 tabs 11/04/23 12/09/23 Rx blood sugar diagnostic (Contour #100 ea 11/05/23 11/05/23 Rx Next Test Strips) lidocaine 5 % topical patch 1 patch topical DAILY PRN Pain 12/09/23 12/09/23 History Hospital Stay Data Consultations 12/09/23 03:48 ED Decision to Admit Stat Pending Results Patient Have Any Pending Studies at Discharge: No Discharge Instructions Given to Patient (Per Discharging Provider) See your primary care provider soon as possible after discharge from [facility] [place] Total Time Total Time Spent Total Time Spent (In Minutes): 45 minutes Coding Level of Care Code 25096 INP/OBS DISCH >30 MIN Diagnoses Metabolic encephalopathy G93.41 UTI (urinary tract infection) N39.0 Generalized weakness R53.1 Elevated troponin R79.89
[2023-12-17 12:10] VITALS: BP 106/70
== END 2023-12-17 13:29 | DRG 689 ==
LOC: ED 23:40 → EDINP 12-09 03:45 → SUATTDRO 12-09 03:45 → 2W 12-09 04:06